=== PATIENT | female | born 1940 | race Caucasian/White ===

== ENCOUNTER → 2016-10-07 | Outpatient (CLI) | payer OTHER ==
[~2016-10-07] MED LIST: ASPI325T45 PO; FRS/40 PO; GABA-113 PO; GLC5 PO; MELO15TA4 PO; PENT400T PO; SIMV-151 PO; SYMIN160 INH; VENL-273 PO
--- NOTE | 2016-10-07 13:57 | DIAGNOSTIC IMAGING REPORT ---
ULTRASOUND LEFT LOWER EXTREMITY VENOUS CLINICAL HISTORY: Left leg pain and swelling. COMPARISON STUDY: No priors. TECHNIQUE: Real-time, grayscale, and color Doppler sonography of the deep veins of the left lower extremity was performed from the inguinal crease to the calf. Compression and augmentation were utilized. FINDINGS: There is no sonographic evidence of deep venous thrombosis identified in the left lower extremity. The common femoral, superficial femoral, and popliteal veins are patent and normally compressible. The greater saphenous vein and the profunda femoris vein at the junction with the common femoral vein are clear. The visualized calf veins are patent. IMPRESSION: There is no sonographic evidence of deep venous thrombosis identified in the left lower extremity. Electronically signed by: Dmitry Cherry M.D. 10/07/2016 1:55 PM Dictated Date/Time: 10/07/2016 1:55 PM
== END | disposition home or self-care (01) ==
LOC: C.ULTR 12:42
PROVIDERS: ATTEND Internal Medicine
DX: M79.605 Pain in left leg (principal); M79.89 Other specified soft tissue disorders

== ENCOUNTER → 2017-02-06 | Outpatient (CLI) | payer OTHER ==
--- NOTE | 2017-02-07 12:30 | MAMMOGRAPHY REPORT ---
BILATERAL DIGITAL SCREENING MAMMOGRAM WITH CAD: 02/06/2017 CLINICAL HISTORY: Routine screening. TECHNIQUE: Current study was also evaluated with a Computer Aided Detection (CAD) system. Bilateral CC and MLO views were obtained. COMPARISON: Comparison is made to exams dated: 02/05/2016 mammogram, 01/27/2014 mammogram, 03/04/2012 m ammogram, 10/24/2010 mammogram, 10/23/2009 mammogram - [facility], and 12/02/2008. BREAST COMPOSITION: There are scattered areas of fibroglandular density in both breasts. FINDINGS: No suspicious masses, calcifications, or areas of architectural distortion are noted in ei ther breast. There has been no significant interval change compared to prior exams. Scattered bilater al benign-appearing calcifications are not significantly changed. IMPRESSION: ACR BI-RADS CATEGORY 2: BENIGN There is no mammographic evidence of malignancy. A 1 year screening mammogram is recommended. The pa tient will receive written notification of the results. Approximately 10% of breast cancers are not detected with mammography. A negative mammographic report should not delay biopsy if a clinically suggestive mass is present. Latonia Pritchard M.D. ah/:02/06/2017 14:56:36 Attending Technologist: Viki Jasso RT(R)(M)(), [facility] Crusher Setter: Beulah Padron RT(R)(M), [facility] letter sent: Normal 1/2 BI-RADS Code: ACR BI-RADS Category 2: Benign
== END | disposition home or self-care (01) ==
LOC: C.MAMM 13:26
PROVIDERS: ATTEND Internal Medicine
DX: Z12.31 Encounter for screening mammogram for malignant neoplasm of breast (principal)

== ENCOUNTER → 2017-05-05 | Outpatient (CLI) | payer OTHER ==
[2017-05-05 15:38] LABS: ALT/SGPT 16 U/L (12-78); BLOOD UREA NITROGEN 18 mg/dl (7-18); BUN/CREATININE RATIO 20.7 (10-20); CALCIUM 9.9 mg/dl (8.5-10.1); CARBON DIOXIDE 27 mmol/L (21-32); CHLORIDE 107 mmol/L (98-107); CHOLESTEROL 178 mg/dl (0-200); CREATININE 0.87 mg/dl (0.60-1.20); GLUCOSE 84 mg/dl (70-99); POTASSIUM 4.7 mmol/L (3.5-5.1); SODIUM 141 mmol/L (136-145)
[2017-05-05 15:41] LABS: ALB/GLOB RATIO 1.2 (0.9-2); ALKALINE PHOSPHATASE 114 U/L (45-117); AST/SGOT 18 U/L (15-37); CHOLESTEROL/HDL RATIO 4.3; HDL CHOLESTEROL 41 mg/dl; TRIGLYCERIDES 185 mg/dl (0-150); VERY LOW DENSITY LIPOPROT CALC 37 mg/dl
[2017-05-05 16:51] LABS: BASO % 0.2 %; BASO ABS # 0.02 K/uL (0-0.2); COMPLETE YES; EOS % 2.6 %; IG% 0.3 %; LYMPH % 25.2 %; LYMPH ABS # 2.45 K/uL (1.2-3.4); MEAN CELL VOLUME 98.1 fL (80-100); MEAN CORPUSCULAR HEMOGLOBIN 32.9 pg (25-34); MEAN CORPUSCULAR HGB CONC 33.5 g/dl (32-36); MEAN PLATELET VOLUME 11.2 fL (7.4-10.4); MONO % 7.6 %; NEUT % 64.1 %; PLATELET COUNT 250 K/uL (130-400); WHITE BLOOD COUNT 9.71 K/uL (4.8-10.8)
[2017-05-06 07:20] LABS: ESTIMATED AVERAGE GLUCOSE 128 mg/dl; HA1C FLAG Normal (Normal)
== END | disposition home or self-care (01) ==
LOC: C.LABSPEC 14:55
PROVIDERS: ATTEND Internal Medicine
DX: E11.9 Type 2 diabetes mellitus without complications (principal); E78.5 Hyperlipidemia, unspecified; J44.9 Chronic obstructive pulmonary disease, unspecified

== ENCOUNTER 2020-11-13 14:27 | Inpatient (IN) ==
[2020-11-13] MEDS ORDERED: SODIUM CHLORIDE 0.9% 500 ML IV ONE (16:51)
[2020-11-13] MEDS ORDERED: VANCOMYCIN HCL 2,000 MG in SODIUM CHLORIDE 0.9% 500 ML IV ONE (16:52)
[2020-11-13] MEDS ORDERED: VANCOMYCIN CONSULT ACTIVE PRN ×2 (16:52→22:06)
[2020-11-13] MEDS ORDERED: PIPERACILL/TAZOBAC CONSULT ACTIVE PRN ×2 (16:52→22:06)
[2020-11-13] MEDS ORDERED: PIPERACILLIN/TAZOBACTAM 4.5 GM/120 ML BAG IV ONE (16:52)
[2020-11-13] MEDS ORDERED: ACETAMINOPHEN 1,000 MG/100 ML VIAL IV STA (16:54)
[2020-11-13] MEDS ORDERED: MoRPHine SULFATE 2 MG/ML CARP IV STA ×2 (16:54→19:00)
--- NOTE | 2020-11-13 17:34 | XRay Report ---
XR knee RT 1 or 2V routine CLINICAL HISTORY: anterior knee ulcer, cellulitis COMPARISON: CT of the right lower extremity August 17, 2013. FINDINGS: Incidental note is made of vascular stents within the right leg at the level of the distal right femur. Postoperative findings from right below-knee amputation are noted. There is no evidence for osteomyelitis. There is no soft tissue gas. Patellofemoral compartment osteoarthritis is present . No acute fracture is identified. IMPRESSION: Status post right below knee amputation. No evidence for osteomyelitis. No acute fracture . ACT 112: Negative or not required by law. Electronically signed by: Parish Vinson M.D. 11/13/2020 5:33 PM
--- NOTE | 2020-11-13 17:35 | XRay Report ---
XR chest 1V portable CLINICAL HISTORY: SEPSIS COMPARISON STUDY: Chest radiograph March 29, 2015. FINDINGS: Elevation of the right hemidiaphragm is unchanged. There are cholecystectomy clips. No pneu mothorax or pleural effusion is present. There is no consolidation or evidence for pulmonary edema. C ardiac size is normal. Mediastinal contours are unremarkable. IMPRESSION: No acute cardiopulmonary findings. No change in appearance of the chest. ACT 112: Negative or not required by law. Electronically signed by: Parish Vinson M.D. 11/13/2020 5:34 PM
--- NOTE | 2020-11-13 17:37 | XRay Report ---
XR tibia fibula LT 2V CLINICAL HISTORY: Cellulitis COMPARISON: None FINDINGS: Alignment of the left knee is anatomic. There is patellofemoral compartment joint space na rrowing with osteophytosis. There is no evidence for left knee joint effusion. There is no acute frac ture or evidence for osteomyelitis within the left tibia or fibula. A cutaneous edema. IMPRESSION: No acute fracture or evidence for osteomyelitis within the left tibia or fibula. ACT 112: Negative or not required by law. Electronically signed by: Parish Vinson M.D. 11/13/2020 5:35 PM
--- NOTE | 2020-11-13 17:38 | XRay Report ---
XR foot LT 2V CLINICAL HISTORY: Cellulitis COMPARISON: None FINDINGS: Tarsometatarsal joints are intact. No acute fracture within the left foot is noted. Pl[place] r calcaneal spurring is noted. There is no evidence for osteomyelitis. There is moderate osteoarthrit is of the left first metatarsophalangeal joint. IMPRESSION: No acute fracture or evidence for osteomyelitis within the left foot. ACT 112: Negative or not required by law. Electronically signed by: Parish Vinson M.D. 11/13/2020 5:36 PM
[2020-11-13 17:42] LABS: Basophils # (auto) 0.02 K/uL (0-0.2); Basophils % (auto) 0.2 %; Eosinophils # (auto) 0.21 K/uL (0-0.5); Eosinophils % (auto) 2.2 %; Hematocrit (blood only) 41.8 % (37-47); Immature Granulocytes # (auto) 0.03 K/uL (0.00-0.02); Immature Granulocytes % (auto) 0.3 %; Lymphocytes # (auto) 1.94 K/uL (1.2-3.4); Lymphocytes % (auto) 20.4 %; Mean Corpuscular Hemoglobin 30.8 pg (25-34); Mean Corpuscular Hgb Conc 33.5 g/dL (32-36); Mean Corpuscular Volume 91.9 fL (80-100); Mean Platelet Volume 10.6 fL (7.4-10.4); Monocytes # (auto) 0.83 K/uL (0.11-0.59); Monocytes % (auto) 8.7 %; Neutrophils % (auto) 68.2 %; Platelet Count 337 K/uL (130-400); RDW Coefficient of Variation 13.3 % (11.5-14.5); RDW Standard Deviation 44.6 fL (36.4-46.3); Red Blood Count 4.55 M/uL (4.2-5.4); White Blood Count 9.53 K/uL (4.8-10.8)
[2020-11-13 17:52] LABS: Partial Thromboplastin Time 25.4 Seconds (21.0-31.0); Prothrombin Time 9.9 Seconds (9.0-12.0)
[2020-11-13 18:01] LABS: Alanine Aminotransferase 11 U/L (12-78); Albumin Level 3.2 gm/dl (3.4-5.0); Aspartate Aminotransferase 13 U/L (15-37); Bilirubin Direct < 0.1 mg/dl (0-0.2); Blood Urea Nitrogen 41 mg/dl (7-18); Calcium 9.2 mg/dl (8.5-10.1); Carbon Dioxide 26 mmol/L (21-32); Chloride 103 mmol/L (98-107); Est GFR (African American) 33.1; Est GFR (Non-African American) 28.6; Glucose 87 mg/dl (70-99); Magnesium 2.4 mg/dl (1.8-2.4); Potassium 3.2 mmol/L (3.5-5.1); Sodium 136 mmol/L (136-145)
[2020-11-13 18:04] LABS: Albumin Globulin Ratio 0.9 (0.9-2); Alkaline Phosphatase 125 U/L (45-117); Bilirubin,Total 0.4 mg/dl (0.2-1); Creatine Kinase 63 U/L (26-192); Globulin 3.5 gm/dl (2.5-4.0); Total Protein 6.7 gm/dl (6.4-8.2); Troponin I < 0.015 ng/ml (0-0.045)
--- NOTE | 2020-11-13 18:34 | Emergency Department Note ---
Impression & Plan Cellulitis of both lower extremities, PAD (peripheral artery disease), Hypokalemia, Renal insufficiency ED Provider Note NAME: GARRETT PRIETO AGE: 80 SEX: F ARRIVES VIA: Walk-In INFORMANT: Patient, ED PROVIDER(S): Bryan Fuentes MD CHIEF COMPLAINT: Left leg infection. PLAN: Disposition: Admit MEDICAL DECISION MAKING: The patient is a pleasant 80-year-old woman with a past medical history of COPD, diabetes, PAD, history of right BKA who presents to the emergency department after being referred by her PCP for worsening left lower extremity cellulitis which had been managed for nonhealing ulcer by wound care but now worsening. The patient denies any fevers, chills, cough, congestion, GI or symptoms. She does report pain in her left leg that has been managed with tramadol. The patient and her family member at the bedside are unsure if she had been treated with antibiotics for this. However they report having wound care twice a week for the past month and today the wound care nurse was concerned and referred them to her primary care doctor. On arrival the patient is fatigued but no acute distress, afebrile with stable vital signs. She has erythema, warmth and tenderness of the left lower leg and foot with serous weeping and diffuse excoriation. There is superficial ulceration of the plantar surface of the great toe and mid posterior lower leg. There is no crepitus. Equivocal pedal pulse however foot is warm with Capillary refill <2s. Right anterior upper leg with papular erythematous rash with mild w armth and tenderness. 0.5cm superficial ulcer of right anterior knee. EKG without overt acute ischemia. CXR negative for acute cardiopulmonary process. WBC, H/H and platelets within normal limits. Chemistry without metabolic acidosis. Creatinine 1.6 increased from previous. Potassium 3.2 with repletion provided. Electrolytes otherwise unremarkable. LFTs without significant abnormality. Troponin negative/undetectable. Lactic acid wnl. Procalcitonin is note elevated. Plain films of the left lower extremity and right knee negative for osseous involvement or fractures. Treatment initiated with Vancomycin and Zosyn. Given the patient's comorbidities in the setting of worsening left lower extremity cellulitis reasonable admit the patient for further management. The patient is agreeable. Case was discussed with [place] admitting resident, Dr. Cartwright, with Dr. Fu, [facility] hospitalist, who will evaluate the patient for admission. Triage Nursing notes reviewed and agree them. Prior medical records reviewed Vital Signs: reviewed and remarkable for no significant abnormalities Differential diagnosis: Cellulitis, abscess, MRSA infection, DVT, necrotizing fasciitis, dermatitis, drug eruption, allergic reaction, as well as other pathologies. ER treatment provided: See below. Diagnostics interpreted by me: ECG: NSR, 62 bpm, no ectopy, RBBB and LAFB no overt ST elevation or depression. Cardiac Monitoring: An order for continuous cardiac monitoring was placed and demonstrated NSR, 62 bpm, no ectopy. Laboratory studies: See below Imaging studies: See below Consultation(s): [place] admitting resident, Dr. Cartwright, [facility], who will evaluate the patient for admission. HPI: The patient is a pleasant 80-year-old woman with a past medical history of COPD, diabetes, PAD, history of right BKA who presents to the emergency department after being referred by her PCP for worsening left lower extremity cellulitis which had been managed for nonhealing ulcer by wound care but now worsening. The patient denies any fevers, chills, cough, congestion, GI or symptoms. She does report pain in her left leg that has been managed with tramadol. The patient and her family member at the bedside are unsure if she had been treated with antibiotics for this. However they report having wound care twice a week for the past month and today the wound care nurse was concerned and referred them to her primary care doctor. ROS: See above HPI for pertinent positives & negatives. A total of 10 systems reviewed and were otherwise negative. PAST MEDICAL HISTORY:See Below PAST SURGICAL HISTORY:See Below FAMILY HISTORY:See Below SOCIAL HISTORY:See Below HOME MEDICATIONS:See Below ALLERGIES:See Below VITALS:See Below PHYSICAL EXAMINATION: GENERAL: Awake, alert, fatigued-appearing, in no distress HENT: Normocephalic, atraumatic. Oropharynx with dry mucous membranes and otherwise unremarkable. EYES: Normal conjunctiva. Sclera non-icteric. NECK: Supple. No nuchal rigidity. FROM. No JVD. RESPIRATORY: Clear to auscultation. CARDIAC: Regular rate, normal rhythm. Extremities warm and well perfused. Pulses equal. ABDOMEN: Soft, non-distended. No tenderness to palpation. No rebound or guarding. No masses. RECTAL: Deferred. MUSCULOSKELETAL: Chest examination reveals no tenderness. The back is symmetrical on inspection without obvious abnormality. There is no CVA tenderness to palpation. No joint edema. LOWER EXTREMITIES: erythema, warmth and tenderness of the left lower leg and foot with serous weeping and diffuse excoriation. There is superficial ulceration of the plantar surface of the great toe and mid posterior lower leg. There is no crepitus. Equivocal pedal pulse however foot is warm with Capillary refill <2s. Right anterior upper leg with papular erythematous rash with mild warmth and tenderness. 0.5cm superficial ulcer of right anterior knee. NEURO: Normal sensorium. No sensory or motor deficits noted. SKIN: No jaundice noted. Warm/dry. Bryan Fuentes MD Past Med/Surg History Medical History Carotid stenosis, asymptomatic Hx of right BKA PAD (peripheral artery disease) Social History Smoking Status: Heavy tobacco smoker Tobacco Type: Cigarettes Second Hand Exposure: No; Do You Dip or Chew Tobacco: No; Tobacco Cessation Education Requested by Patient: No Hx Alcohol Use: No Hx Substance Use: No Preferred Language: Russian Communication Ability: Effective Artist'S Representative Required: No Beliefs That Will Affect Care: None Current Living Situation: Alone Other Information That Helps Us Care for You: No Feels Safe at Home: Yes Assistive Devices: Denture - Upper, Glasses and Wheelchair Allergies Allergies Allergy/AdvReac Type Severity Reaction Status Date / Time hydrogen peroxide Allergy Unknown ALLERGY Verified 11/13/20 18:57 REPORTED "PEROXIDE"-red and itchy Home Meds Home Medications Medication Instructions Recorded Confirmed aspirin 325 mg PO DAILY 11/13/20 11/13/20 fluticasone propion-salmeterol 2 inh INHALATION DAILY 11/13/20 11/13/20 [Advair Diskus] furosemide 40 mg PO BID 11/13/20 11/13/20 gabapentin 0 mg PO DIRECTED 11/13/20 11/13/20 gabapentin 0 mg PO UD 11/13/20 11/13/20 glipizide 5 mg PO DAILY 11/13/20 11/13/20 meloxicam 15 mg PO DAILY 11/13/20 11/13/20 oxybutynin chloride 5 mg PO BID 11/13/20 11/13/20 pentoxifylline 400 mg PO TID 11/13/20 11/13/20 simvastatin 20 mg PO DAILY 11/13/20 11/13/20 venlafaxine 75 mg PO DAILY 11/13/20 11/13/20 Results & Data (ED) Vital Signs Vital Signs - 24 hr 11/13/20 14:33 11/13/20 16:57 11/13/20 17:08 Temperature 37.0 C Temperature Source Skin Pulse Rate 74 65 61 Pulse Rate [Left] 63 Pulse Rate from SpO2 Sensor Respiratory Rate 20 18 17 Respiratory Effort / Characteristics Non-Labored Spontaneous Non-Labored Spontaneous Respiratory Depth Normal Respiratory Pattern Regular Blood Pressure 115/54 L Blood Pressure [Right Arm] 136/50 L Blood Pressure Mean 74 Blood Pressure Mean [Right Arm] 78 Blood Pressure Position [Right Arm] Pulse Oximetry 92 94 Oxygen Delivery Method Room Air Room Air Sepsis Recent Fever Within 48 Hours No Sepsis New/Unexplained Change in Mental Status N/A Sepsis Action Taken by Nursing No Action Required 11/13/20 17:10 11/13/20 17:17 11/13/20 17:20 Temperature Temperature Source Pulse Rate 59 L 62 68 Pulse Rate [Left] Pulse Rate from SpO2 Sensor 63 65 Respiratory Rate 20 29 H 29 H Respiratory Effort / Characteristics Respiratory Depth Respiratory Pattern Blood Pressure 136/50 L Blood Pressure [Right Arm] Blood Pressure Mean 78 Blood Pressure Mean [Right Arm] Blood Pressure Position [Right Arm] Pulse Oximetry 80 L 93 91 Oxygen Delivery Method Sepsis Recent Fever Within 48 Hours Sepsis New/Unexplained Change in Mental Status Sepsis Action Taken by Nursing 11/13/20 17:30 11/13/20 17:40 11/13/20 17:50 Temperature Temperature Source Pulse Rate 62 59 L 62 Pulse Rate [Left] Pulse Rate from SpO2 Sensor 63 59 L 59 L Respiratory Rate 21 24 17 Respiratory Effort / Characteristics Respiratory Depth Respiratory Pattern Blood Pressure Blood Pressure [Right Arm] Blood Pressure Mean Blood Pressure Mean [Right Arm] Blood Pressure Position [Right Arm] Pulse Oximetry 94 95 90 Oxygen Delivery Method Sepsis Recent Fever Within 48 Hours Sepsis New/Unexplained Change in Mental Status Sepsis Action Taken by Nursing 11/13/20 18:00 11/13/20 18:03 11/13/20 18:43 Temperature Temperature Source Pulse Rate 58 L 71 Pulse Rate [Left] 57 L Pulse Rate from SpO2 Sensor 57 L 58 L Respiratory Rate 13 16 20 Respiratory Effort / Characteristics Non-Labored Spontaneous Respiratory Depth Normal Respiratory Pattern Blood Pressure 157/73 H Blood Pressure [Right Arm] 107/61 Blood Pressure Mean 101 Blood Pressure Mean [Right Arm] 76 Blood Pressure Position [Right Arm] Lying Pulse Oximetry 96 92 94 Oxygen Delivery Method Room Air Room Air Sepsis Recent Fever Within 48 Hours Sepsis New/Unexplained Change in Mental Status Sepsis Action Taken by Nursing Laboratory Data Attestation: I reviewed the patient's lab results. Result diagrams: 11/13/20 17:15 11/13/20 17:15 Lab Results 11/13/20 11/13/20 11/13/20 Range/Units 17:00 17:00 17:15 WBC 9.53 (4.8-10.8) K/uL RBC 4.55 (4.2-5.4) M/uL Hgb 14.0 (12.0-16.0) g/dL Hct 41.8 (37-47) % MCV 91.9 (80-100) fL MCH 30.8 (25-34) pg MCHC 33.5 (32-36) g/dL RDW Std Deviation 44.6 (36.4-46.3) fL RDW Coeff of Isiah 13.3 (11.5-14.5) % Plt Count 337 (130-400) K/uL MPV 10.6 H (7.4-10.4) fL Immature Gran % (Auto) 0.3 % Neut % (Auto) 68.2 % Lymph % (Auto) 20.4 % [place] % (Auto) 8.7 % Eos % (Auto) 2.2 % Baso % (Auto) 0.2 % Neut # (Auto) 6.50 (1.4-6.5) K/uL Lymph # (Auto) 1.94 (1.2-3.4) K/uL [place] # (Auto) 0.83 H (0.11-0.59) K/uL Eos # (Auto) 0.21 (0-0.5) K/uL Baso # (Auto) 0.02 (0-0.2) K/uL Immature Gran # (Auto) 0.03 H (0.00-0.02) K/uL PT (9.0-12.0) Seconds INR (0.9-1.1) APTT (21.0-31.0) Seconds PTT Ratio Sodium (136-145) mmol/L Potassium (3.5-5.1) mmol/L Chloride (98-107) mmol/L Carbon Dioxide (21-32) mmol/L Anion Gap (3-11) BUN (7-18) mg/dl Creatinine (0.6-1.2) mg/dl Est Cr Clr Drug Dosing ml/min Est GFR ( Amer) Est GFR (Non-Af Amer) BUN/Creatinine Ratio (10-20) Glucose (70-99) mg/dl Lactate (0.4-2.0) mmol/L Calcium (8.5-10.1) mg/dl Phosphorus (2.5-4.9) mg/dl Magnesium (1.8-2.4) mg/dl Total Bilirubin (0.2-1) mg/dl Direct Bilirubin (0-0.2) mg/dl AST (15-37) U/L ALT (12-78) U/L Alkaline Phosphatase (45-117) U/L Total Creatine Kinase (26-192) U/L Troponin I (0-0.045) ng/ml Total Protein (6.4-8.2) gm/dl Albumin (3.4-5.0) gm/dl Globulin (2.5-4.0) gm/dl Albumin/Globulin Ratio (0.9-2) Procalcitonin (0-0.5) ng/ml COVID-19 Eval Order [facility]Rsv at [facility] SARS-CoV-2 (PCR) NEGATIVE (Negative) Influenza Type A (PCR) Negative (Neg) Influenza Type B (PCR) Negative (Neg) RSV (RT-PCR) Negative (Neg) 11/13/20 11/13/20 11/13/20 Range/Units 17:15 17:15 17:15 WBC (4.8-10.8) K/uL RBC (4.2-5.4) M/uL Hgb (12.0-16.0) g/dL Hct (37-47) % MCV (80-100) fL MCH (25-34) pg MCHC (32-36) g/dL RDW Std Deviation (36.4-46.3) fL RDW Coeff of Isiah (11.5-14.5) % Plt Count (130-400) K/uL MPV (7.4-10.4) fL Immature Gran % (Auto) % Neut % (Auto) % Lymph % (Auto) % [place] % (Auto) % Eos % (Auto) % Baso % (Auto) % Neut # (Auto) (1.4-6.5) K/uL Lymph # (Auto) (1.2-3.4) K/uL [place] # (Auto) (0.11-0.59) K/uL Eos # (Auto) (0-0.5) K/uL Baso # (Auto) (0-0.2) K/uL Immature Gran # (Auto) (0.00-0.02) K/uL PT 9.9 (9.0-12.0) Seconds INR 1.0 (0.9-1.1) APTT 25.4 (21.0-31.0) Seconds PTT Ratio 1.0 Sodium 136 (136-145) mmol/L Potassium 3.2 L (3.5-5.1) mmol/L Chloride 103 (98-107) mmol/L Carbon Dioxide 26 (21-32) mmol/L Anion Gap 6.0 (3-11) BUN 41 H (7-18) mg/dl Creatinine 1.69 H (0.6-1.2) mg/dl Est Cr Clr Drug Dosing 26.0 ml/min Est GFR ( Amer) 33.1 Est GFR (Non-Af Amer) 28.6 BUN/Creatinine Ratio 24.0 H (10-20) Glucose 87 (70-99) mg/dl Lactate (0.4-2.0) mmol/L Calcium 9.2 (8.5-10.1) mg/dl Phosphorus 3.0 (2.5-4.9) mg/dl Magnesium 2.4 (1.8-2.4) mg/dl Total Bilirubin 0.4 (0.2-1) mg/dl Direct Bilirubin < 0.1 (0-0.2) mg/dl AST 13 L (15-37) U/L ALT 11 L (12-78) U/L Alkaline Phosphatase 125 H (45-117) U/L Total Creatine Kinase 63 (26-192) U/L Troponin I < 0.015 (0-0.045) ng/ml Total Protein 6.7 (6.4-8.2) gm/dl Albumin 3.2 L (3.4-5.0) gm/dl Globulin 3.5 (2.5-4.0) gm/dl Albumin/Globulin Ratio 0.9 (0.9-2) Procalcitonin 0.05 (0-0.5) ng/ml COVID-19 Eval Order SARS-CoV-2 (PCR) (Negative) Influenza Type A (PCR) (Neg) Influenza Type B (PCR) (Neg) RSV (RT-PCR) (Neg) 11/13/20 Range/Units 18:23 WBC (4.8-10.8) K/uL RBC (4.2-5.4) M/uL Hgb (12.0-16.0) g/dL Hct (37-47) % MCV (80-100) fL MCH (25-34) pg MCHC (32-36) g/dL RDW Std Deviation (36.4-46.3) fL RDW Coeff of Isiah (11.5-14.5) % Plt Count (130-400) K/uL MPV (7.4-10.4) fL Immature Gran % (Auto) % Neut % (Auto) % Lymph % (Auto) % [place] % (Auto) % Eos % (Auto) % Baso % (Auto) % Neut # (Auto) (1.4-6.5) K/uL Lymph # (Auto) (1.2-3.4) K/uL [place] # (Auto) (0.11-0.59) K/uL Eos # (Auto) (0-0.5) K/uL Baso # (Auto) (0-0.2) K/uL Immature Gran # (Auto) (0.00-0.02) K/uL PT (9.0-12.0) Seconds INR (0.9-1.1) APTT (21.0-31.0) Seconds PTT Ratio Sodium (136-145) mmol/L Potassium (3.5-5.1) mmol/L Chloride (98-107) mmol/L Carbon Dioxide (21-32) mmol/L Anion Gap (3-11) BUN (7-18) mg/dl Creatinine (0.6-1.2) mg/dl Est Cr Clr Drug Dosing ml/min Est GFR ( Amer) Est GFR (Non-Af Amer) BUN/Creatinine Ratio (10-20) Glucose (70-99) mg/dl Lactate 0.9 (0.4-2.0) mmol/L Calcium (8.5-10.1) mg/dl Phosphorus (2.5-4.9) mg/dl Magnesium (1.8-2.4) mg/dl Total Bilirubin (0.2-1) mg/dl Direct Bilirubin (0-0.2) mg/dl AST (15-37) U/L ALT (12-78) U/L Alkaline Phosphatase (45-117) U/L Total Creatine Kinase (26-192) U/L Troponin I (0-0.045) ng/ml Total Protein (6.4-8.2) gm/dl Albumin (3.4-5.0) gm/dl Globulin (2.5-4.0) gm/dl Albumin/Globulin Ratio (0.9-2) Procalcitonin (0-0.5) ng/ml COVID-19 Eval Order SARS-CoV-2 (PCR) (Negative) Influenza Type A (PCR) (Neg) Influenza Type B (PCR) (Neg) RSV (RT-PCR) (Neg) Administered Medications Heparin Sodium (Porcine) (Heparin Sod 5,000 Unit/0.5 Ml Vial) 5,000 units SQ Q12 [facility] Stop: 12/13/20 22:05 Last Admin: 11/13/20 23:11 Dose: 5,000 units Documented by: [id number] Piperacillin Sod/Tazobactam (Sod 3.375 gm/ Dextrose) 115 mls @ 28.75 mls/hr IV Q8H [facility]; Protocol Stop: 11/21/20 00:00 Last Admin: 11/13/20 23:19 Dose: 28.8 mls/hr Documented by: [id number] Lactated Ringer's (Lr) 1,000 mls @ 100 mls/hr IV .Q10H [facility] Stop: 11/14/20 18:05 Last Admin: 11/13/20 22:51 Dose: 100 mls/hr Documented by: [id number] Insulin Aspart (Insulin Aspart 100 Units/Ml 3 Ml Pen) 0 units SC ACHS [facility] Stop: 12/13/20 22:05 Last Admin: 11/13/20 23:18 Dose: Not Given Documented by: [id number] Oxybutynin Chloride (Oxybutynin Chloride 5 Mg Tab) 5 mg PO BID [facility] Stop: 12/13/20 22:05 Last Admin: 11/13/20 23:11 Dose: 5 mg Documented by: [id number] Oxycodone HCl (Oxycodone Hcl Ir 5 Mg Tab (Immediate Release)) 5 mg PO Q4H PRN PRN Reason: MODERATE Pain (4,5,6) & Pre PT Stop: 11/27/20 22:05 Last Admin: 11/13/20 22:52 Dose: 5 mg Documented by: [id number] Pentoxifylline (Pentoxifylline 400mg Ext Rel Tab) 400 mg PO TID [facility] Stop: 12/13/20 22:05 Last Admin: 11/13/20 23:13 Dose: 400 mg Documented by: [id number] Discontinued Medications Sodium Chloride (Nss) 500 mls @ 999 mls/hr IV .Q31M ONE Stop: 11/13/20 17:21 Last Infusion: 11/13/20 18:03 Dose: 0 mls/hr Documented by: [id number] Admin: 11/13/20 17:30 Dose: 999 mls/hr Documented by: [id number] Vancomycin HCl 2,000 mg/ (Sodium Chloride) 540 mls @ 200 mls/hr IV NOW ONE Stop: 11/13/20 19:33 Last Infusion: 11/13/20 22:08 Dose: 0 mls/hr Documented by: [id number] Admin: 11/13/20 18:38 Dose: 200 mls/hr Documented by: [id number] Piperacillin Sod/Tazobactam Sod (Zosyn) 4.5 gm in 120 mls @ 240 mls/hr IV NOW ONE Stop: 11/13/20 17:21 Last Infusion: 11/13/20 22:08 Dose: 0 mls/hr Documented by: [id number] Admin: 11/13/20 18:38 Dose: 240 mls/hr Documented by: [id number] Acetaminophen (Ofirmev) 1,000 mg in 100 mls @ 400 mls/hr IV NOW STA Stop: 11/13/20 17:08 Last Infusion: 11/13/20 17:57 Dose: 0 mls/hr Documented by: [id number] Admin: 11/13/20 17:30 Dose: 400 mls/hr Documented by: [id number] Potassium Chloride (K Eder / Wtr) 10 meq in 100 mls @ 100 mls/hr IV Q1H [facility] Stop: 11/13/20 20:29 Last Infusion: 11/14/20 01:17 Dose: 0 mls/hr Documented by: [id number] Admin: 11/14/20 00:13 Dose: 100 mls/hr Documented by: [id number] Infusion: 11/14/20 00:10 Dose: 100 mls/hr Documented by: [id number] Admin: 11/13/20 23:10 Dose: 100 mls/hr Documented by: [id number] Morphine Sulfate (Morphine Sulfate 2 Mg/Ml Carp) 1 mg IV NOW STA Stop: 11/13/20 16:55 Last Admin: 11/13/20 17:30 Dose: 1 mg Documented by: [id number] Morphine Sulfate (Morphine Sulfate 2 Mg/Ml Carp) 2 mg IV NOW STA Stop: 11/13/20 19:01 Last Admin: 11/13/20 21:31 Dose: Not Given Documented by: [id number] Morphine Sulfate (Morphine Sulfate 2 Mg/Ml Carp) Confirm Administered Dose 2 mg .ROUTE .STK-MED ONE Stop: 11/13/20 21:21 Last Admin: 11/13/20 21:31 Dose: Not Given Documented by: [id number] Potassium Chloride (Potassium Chloride Crtab 20 Meq Tabcr) 40 meq PO NOW STA Stop: 11/13/20 22:07 Last Admin: 11/13/20 23:12 Dose: 40 meq Documented by: [id number] Imaging Data Radiologist's Impression: Chest X-Ray 11/13/20 16:48 XR chest 1V portable CLINICAL HISTORY: SEPSIS COMPARISON STUDY: Chest radiograph March 29, 2015. FINDINGS: Elevation of the right hemidiaphragm is unchanged. There are cholecystectomy clips. No pneumothorax or pleural effusion is present. There is no consolidation or evidence for pulmonary edema. Cardiac size is normal. Mediastinal contours are unremarkable. IMPRESSION: No acute cardiopulmonary findings. No change in appearance of the chest. ACT 112: Negative or not required by law. Electronically signed by: Parish Vinson M.D. 11/13/2020 5:34 PM Foot X-Ray 11/13/20 16:49 XR foot LT 2V CLINICAL HISTORY: Cellulitis COMPARISON: None FINDINGS: Tarsometatarsal joints are intact. No acute fracture within the left foot is noted. Pl[place]r calcaneal spurring is noted. There is no evidence for osteomyelitis. 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 IMPRESSION: No acute fracture or evidence for osteomyelitis within the left foot. ACT 112: Negative or not required by law. Electronically signed by: Parish Vinson M.D. 11/13/2020 5:36 PM Knee X-Ray 11/13/20 16:49 XR knee RT 1 or 2V routine CLINICAL HISTORY: anterior knee ulcer, cellulitis COMPARISON: CT of the right lower extremity August 17, 2013. FINDINGS: Incidental note is made of vascular stents within the right leg at the level of the distal right femur. Postoperative findings from right below- knee amputation are noted. There is no evidence for osteomyelitis. There is no soft tissue gas. Patellofemoral compartment osteoarthritis is present. No acute fracture is identified. IMPRESSION: Status post right below knee amputation. No evidence for osteomyelitis. No acute fracture. ACT 112: Negative or not required by law. Electronically signed by: Parish Vinson M.D. 11/13/2020 5:33 PM Tibia/Fibula X-Ray 11/13/20 16:49 XR tibia fibula LT 2V CLINICAL HISTORY: Cellulitis COMPARISON: None FINDINGS: Alignment of the left knee is anatomic. There is patellofemoral compartment joint space narrowing with osteophytosis. There is no evidence for left knee joint effusion. There is no acute fracture or evidence for osteomyelitis within the left tibia or fibula. A cutaneous edema. IMPRESSION: No acute fracture or evidence for osteomyelitis within the left tibia or fibula. ACT 112: Negative or not required by law. Electronically signed by: Parish Vinson M.D. 11/13/2020 5:35 PM Discharge Plan Visit Data Chief Complaint: Infection Stated Complaint: INFECTION IN L FOOT ED Provider: Bryan Fuentes Discharge Problem: Cellulitis of both lower extremities, PAD (peripheral artery disease), Hypokalemia, Renal insufficiency Patient Disposition: Admitted As Inpatient Discharge Instructions Interventions: ED Discharge Assessment Last Done: 11/13/20 22:18
[2020-11-13 18:49] LABS: Influenza A virus by PCR Negative (Neg); Influenza B virus by PCR Negative (Neg); RSV by PCR Negative (Neg); SARS CoV2 RNA(COVID-19) InHosp NEGATIVE (Negative)
--- NOTE | 2020-11-13 20:47 | History & Physical Report ---
Date of Service November 13, 2020 Assessment & Plan (1) Cellulitis: Patient is a 80 year old female with PMHx COPD, DM2, PAD, R BKA, Urge Incontinence, that presents for 1 month history of nonhealing and worsening LLE wound. Of note, patient does have an upcoming COVID-19 vaccination on 11/18/20 which would be her second dose at [facility]. LLE Cellulitis -Failed outpatient wound care, no outpatient antibiotics -Started on Vancomycin and Zosyn in ED, will continue at this time -Blood cultures pending -Wound cultures ordered -Consult Wound provider and Wound nurse -Oxycodone PO and Tylenol PRN pain KM -KM with Cr. 1.64, Base 0.8~0.9 -1L NSS in the ED -Will continue gentle hydration with LR 100ml/hr x2L -Hold home lasix at this time during KM, will also request records of patients PCP for reasoning as to why she is on Lasix PAD -Continue ASA 325mg QD -Continue Pentoxifylline -Hold Gabapentin at this time, patient unsure of dosing, will place for records request at her PCP's office to determine -Hold Meloxicam at this time -Arterial duplex ordered for LLE Hypokalemia -K low at 3.2 in the ED, given 20meq KCl IV -Will supplement with 40meq KCl PO, recheck in the AM DM2 -Hold home meds -SSI for now, can add basal bolus if needed -HgbA1C in the AM COPD -Continue home Advair Diskus -Add PRN Albuterol Urge Incontinence -Continue home Oxybutynin Depression -Continue home Venlafaxine Rash R thigh, suspect atopic dermatitis -Will start with hydrocortisone cream BID -Monitor for worsening Dispo: Med/Surg for IV antibiotics, IV fluids FEN: DM2 Diet, LR 100 ml/hr x2L DVT: Heparin Code: Full, patient notes she is unsure if her living will states the same, but at this time she would want full resuscitation including CPR and Intubation (2) KM (acute kidney injury): (3) PAD (peripheral artery disease): History of Present Illness Chief Complaint: L leg wound Primary Care Provider: Og Baca MD Patient is a 80 year old female with PMHx COPD, DM2, PAD, R BKA, Urge Incontinence, that presents for 1 month history of nonhealing and worsening LLE wound. Patient notes that roughly 1 month ago she developed a small ulcer about the size of her fingertip on the back of her distal L calf and that since then it has continued to grow despite being treated every 2 days by a wound nurse. She states that her wound nurse today felt that the lesion had grown to the point that she would require antibiotic therapy and was referred to her PCP's office who subsequently urged the patient to come to the ED for evaluation and possible IV antibiotics. Patient notes that currently she is experiencing pain in the L mid calf 03/20 in addition to pain lateral to her 5th digit on the L leg as well. She states she has not taken any antibiotics for this pain. She also notes a rash on her R thigh, but is unsure of when it fully developed. She has been putting an OTC lotion on it which has improved it slightly. She otherwise denies any chest pain, chest pressure, fever, chills, SOB, abdominal pain, headache, visual changes. She notes that she has followed with Dr. Padilla in the past and that he is the one who had done her R BKA ~8 years ago. Med Hx: COPD, DM2, PAD, R BKA, Urge incontinence Surg Hx: R BKA, Cholecystectomy Social Hx: Smokes 1.5 PPD since the age of 18, no alcohol or illicit drug use. Allergies Allergy/AdvReac Type Severity Reaction Status Date / Time hydrogen peroxide Allergy Unknown ALLERGY Verified 11/13/20 18:57 REPORTED "PEROXIDE"-red and itchy lorazepam [From Ativan] AdvReac Mild flushed BP Verified 11/18/20 17:14 elevated , COMPLAINTS OF SKIN BURNING Home Medications Medication Instructions Recorded Confirmed Type aspirin 325 mg PO DAILY 11/13/20 11/13/20 History fluticasone propion-salmeterol 2 inh INHALATION DAILY 11/13/20 11/13/20 History [Advair Diskus] furosemide 40 mg PO BID 11/13/20 11/13/20 History gabapentin 0 mg PO DIRECTED 11/13/20 11/13/20 History gabapentin 0 mg PO UD 11/13/20 11/13/20 History glipizide 5 mg PO DAILY 11/13/20 11/13/20 History meloxicam 15 mg PO DAILY 11/13/20 11/13/20 History oxybutynin chloride 5 mg PO BID 11/13/20 11/13/20 History pentoxifylline 400 mg PO TID 11/13/20 11/13/20 History simvastatin 20 mg PO DAILY 11/13/20 11/13/20 History venlafaxine 75 mg PO DAILY 11/13/20 11/13/20 History Past Med/Surg History Medical History Carotid stenosis, asymptomatic Hx of right BKA PAD (peripheral artery disease) Social History Smoking Status: Heavy tobacco smoker Tobacco Type: Cigarettes Second Hand Exposure: No; Do You Dip or Chew Tobacco: No; Tobacco Cessation Education Requested by Patient: No Hx Alcohol Use: No Hx Substance Use: No Preferred Language: Zambian Communication Ability: Impaired Marble Supervisor Required: No Beliefs That Will Affect Care: None Current Living Situation: Alone Other Information That Helps Us Care for You: No Feels Safe at Home: Yes Assistive Devices: Denture - Upper, Glasses, Prosthesis and Walker Review of Systems Review of Systems: All systems reviewed & are unremarkable except as noted in Subjective Physical Exam Constitutional: + ill appearing, + disheveled and cooperative Eyes: PERRL, conjunctivae normal, anicteric sclerae ENMT: external ear and nose normal, oropharynx normal Neck: trachea midline, no thyromegaly Respiratory: normal respiratory effort Auscultation: + diminished lung so unds and + wheezes (worse in the upper lobes b/l) Cardiovascular: Rate/Rhythm: regular rate and regular rhythm Heart Sounds: no murmur and no cardiac rub Vessels: dorsalis pedis pulses present (in L foot ) Gastrointestinal (Abdomen): normal bowel sounds, soft, nontender, no hepatosplenomegaly Musculoskeletal: -L foot warm to the touch with dorsalis pedis pulse palpable -Small circular 1cm tender to palpation lesion lateral to the 5th metacarpal at the MTP on the L -L posterior calf with ulceration and clear drainage running from the mid calf to the ankle, significantly tender to palpation Psychiatric: A+Ox3, euthymic affect Results & Data Results & Data ([facility]) Vital Signs (Past 12 Hours) Vital Signs Temp Pulse Pulse Resp BP BP Pulse Ox 04/05/21 18:43 57 L 20 107/61 94 11/13/20 18:03 71 16 157/73 H 92 11/13/20 18:00 58 L 13 96 11/13/20 17:50 62 17 90 11/13/20 17:40 59 L 24 95 11/13/20 17:30 62 21 94 11/13/20 17:20 68 29 H 91 11/13/20 17:17 62 29 H 136/50 L 93 11/13/20 17:10 59 L 20 80 L 11/13/20 17:08 61 17 11/13/20 16:57 65 63 18 136/50 L 94 11/13/20 14:33 37.0 C 74 20 115/54 L 92 Code Status & VTE Plan VTE Prophylaxis Plan VTE Prophylaxis will be ordered: Yes Supervising Physician Co-Signing Physician Notes Attending addendum: I have physically seen this patient, have supervised the medical residents activities, and agree with the H&P unless as otherwise noted. Assessment and Plan: Left lower extremity cellulitis/diabetic skin infection- Empiric treatment vancomycin IV and Zosyn IV. Follow wound cultures and blood cultures and sensitivities Consult wound care Acetaminophen 650 mg p.o. every 6 hours as needed mild pain or fever Oxycodone 5 mg p.o. every 6 hours as needed moderate to severe pain KM- Creatinine 1.64 upon admission, with baseline 0.8-0.9. Status post 1 L normal saline in the ED Placed on LR at 100 mils per hour for 2 L Repeat laboratories in a.m. PAD- Continue aspirin, pentoxifylline. Arterial duplex for left lower extremity Hold gabapentin and meloxicam. Diabetes mellitus- Hold glipizide Place on Accu-Cheks before meals and at bedtime with NovoLog coverage per scale Remaining orders and notations as noted Resident Activity Tracking Resident Involvement: Resident Care Provided Care Provided: Adult Hospital Medicine
[2020-11-13] MEDS ORDERED: MoRPHine SULFATE 2 MG/ML CARP ONE (21:20)
[2020-11-13] MEDS ORDERED: GLUCAGON FOR INJ 1 MG VIAL SQ PRN (22:06)
[2020-11-13] MEDS ORDERED: CARBOHYDRATES FOR HYPOGLYCEMIA PO PRN (22:06)
[2020-11-13] MEDS ORDERED: VANCOMYCIN HCL 1,250 MG in SODIUM CHLORIDE 0.9% 500 ML IV SCH (22:06)
[2020-11-13] MEDS ORDERED: ACETAMINOPHEN 325 MG TAB PO PRN (22:06)
[2020-11-13] MEDS ORDERED: GLUCOSE 40% GEL 15 GM TUBE PO PRN (22:06)
[2020-11-13] MEDS ORDERED: HYDROCORTISONE 1% CRM 30 GM TUBE EXT PRN (22:06)
[2020-11-13] MEDS ORDERED: GLUCOSE 10 TABS/TUBE PO PRN (22:06)
[2020-11-13] MEDS ORDERED: oxyCODONE HCL IR 5 MG TAB (IMMEDIATE RELEASE) PO PRN ×2 (22:06)
[2020-11-13] MEDS ORDERED: POTASSIUM CHLORIDE CRTAB 20 MEQ TABCR PO STA (22:06)
[2020-11-13] MEDS ORDERED: DEXTROSE 50% 50 ML SYRINGE IV PRN (22:06)
[2020-11-13] MEDS ORDERED: ALBUTEROL HFA 8 GM INHALER INH PRN (22:06)
[2020-11-13] MEDS: LACTATED RINGER'S 1,000 ML IV SCH (22:51)
[2020-11-13] MEDS: POTASSIUM CHLORIDE / WTR 10 MEQ/100 ML PLCT IV SCH (23:10)
[2020-11-13] MEDS: OXYBUTYNIN CHLORIDE 5 MG TAB PO SCH (23:11)
[2020-11-13] MEDS: HEPARIN SOD 5,000 UNIT/0.5 ML VIAL SQ SCH (23:11)
[2020-11-13] MEDS: PENTOXIFYLLINE 400MG EXT REL TAB PO SCH (23:13)
[2020-11-13] MEDS: INSULIN ASPART 100 UNITS/ML 3 ML PEN SC SCH (23:18)
[2020-11-13] MEDS: PIPERACILLIN/TAZOBACTAM 3.375 GM in DEXTROSE 5% 100 ML IV SCH (23:19)
[2020-11-14] MEDS: POTASSIUM CHLORIDE / WTR 10 MEQ/100 ML PLCT IV SCH (00:13)
[2020-11-14 06:12] LABS: Basophils # (auto) 0.01 K/uL (0-0.2); Basophils % (auto) 0.1 %; Eosinophils # (auto) 0.23 K/uL (0-0.5); Eosinophils % (auto) 2.6 %; Hematocrit (blood only) 39.9 % (37-47); Hemoglobin 13.3 g/dL (12.0-16.0); Immature Granulocytes # (auto) 0.03 K/uL (0.00-0.02); Immature Granulocytes % (auto) 0.3 %; Lymphocytes % (auto) 11.1 %; Mean Corpuscular Hemoglobin 30.6 pg (25-34); Mean Corpuscular Hgb Conc 33.3 g/dL (32-36); Mean Corpuscular Volume 91.9 fL (80-100); Mean Platelet Volume 10.3 fL (7.4-10.4); Monocytes # (auto) 0.75 K/uL (0.11-0.59); Monocytes % (auto) 8.4 %; Neutrophils # (auto) 6.95 K/uL (1.4-6.5); Neutrophils % (auto) 77.5 %; Platelet Count 303 K/uL (130-400); RDW Coefficient of Variation 13.2 % (11.5-14.5); RDW Standard Deviation 44.4 fL (36.4-46.3); Red Blood Count 4.34 M/uL (4.2-5.4); White Blood Count 8.97 K/uL (4.8-10.8)
--- NOTE | 2020-11-14 06:41 | Hospitalist Progress Note ---
Date of Service November 14, 2020 Assessment & Plan (1) Cellulitis: Patient is a 80 year old female with PMHx COPD, DM2, PAD, R BKA, urge incontinence admitted for LLE pain with chronic nonhealing wounds and KM. LLE pain and ulceration/cellulitis, PAD: -Failed outpatient wound care, no outpatient antibiotics. -Started on Vancomycin and Zosyn in ED, will continue at this time. -No osteomyelitis noted on XR imaging of LLE. -Blood and wound cultures pending. -Consult to wound care nurse placed. -LLE Duplex performed which showed moderate to extensive LLE atherosclerotic plaque, without hemodynamically significant stenosis. Also noted to have possible findings of inflow disease in left common femoral artery. -Vascular Surgery consulted, appreciate recommendations. -Have transitioned aspirin to 81mg daily, with transition of simvastatin to atorvastatin 40mg daily. Continue pentoxifylline. -Scheduled Tylenol 1000mg TID. Oxycodone 5mg q4h prn moderate pain. Dilaudid 1mg q4h prn severe pain. KM: -KM with Cr. 1.64, Base 0.8~0.9. -1L NSS received in the ED, 100cc/hr x2 bags given following bolus. -Encourage PO water intake. -Hold home Lasix at this time during KM. Chronic Opiate Use: -On review of PDMP, patient has been taking Tramadol 100mg TID for LLE pain since prescribed in August. Prior to that patient was receiving about 112 tablets per month; this was for several months. Has in general been on tramadol for many years. -Patient's pain has been relatively difficult to control. -Likely some element of PAD pain and ulcer pain as described above, continue treatment of such with Vascular input. -Some element of increased pain possibly secondary to chronic opiate use, which would explain her relative need for increased dosing of opiate pain medication in the hospital setting. Hypokalemia: -K low at 3.2 in the ED, given 20meq KCl IV, 40meq PO; with increase in K to 4.3 today. DM2: -Hold home medications, SSI. -Hgb A1c 6.6% this admission. COPD: -Continue home Advair Diskus, with as needed albuterol. -No symptoms of SOB per patient, and no lung exam findings suggestive of acute lung pathology. -Was placed on oxygen while sound asleep after her DUplex today, but has not had true hypoxia or dyspnea requiring supplemental O2. Urge Incontinence: -Continue home Oxybutynin. Depression: -Continue home Venlafaxine. Rash R thigh, suspect atopic dermatitis: -Continue topical hydrocortisone cream BID. Code: FULL CODE Dispo: Med/Surg for IV antibiotics, pain control FEN: DM2 Diet, Heart healthy diet DVT: Heparin SQ BID Admission and Anticipated Discharge Date Admission Date: November 13, 2020 Supervising Physician Co-Signing Physician Notes Resident Physician Supervision Note: I independently interviewed and examined the patient and verified the ryder history and physical, reviewed labs and image studies, discussed the case with the resident Dr. Flannery and agree with the findings and care plan. Subjective Patient without acute events overnight. She reports terrible pain in LLE from below the knee to above the ankle on anterior and posterior sides. She takes tramadol 3 times daily at home, but admits to taking it "a few more times a day" for about a week due to the worsening pain. No other complaints. No numbness of lower extremity. Pain is only better when no pressure of any sort is applied to the LLE. Has a robust smoking history. No SOB, chest pain, fevers. Has had wound care at home for many weeks visiting twice weekly, but is unsure if she has been on antibiotics for her LLE. Review of Systems Review of Systems: All systems reviewed & are unremarkable except as noted in HPI & below Constitutional: + malaise; no fever and no chills Respiratory: no cough and no dyspnea Cardiovascular: no chest pain, no palpitations and no edema Gastrointestinal: no abdominal pain, no constipation and no diarrhea/loose stools Genitourinary: no dysuria and no hematuria Physical Exam Constitutional: well developed, + acute distress (due to pain) and + ill appearing Respiratory: normal respiratory effort, lungs clear to auscultation Cardiovascular: RRR, no murmur, no edema Gastrointestinal (Abdomen): normal bowel sounds, soft, nontender, no hepatosplenomegaly Skin: L posterior calf with ulceration and clear drainage running from the mid calf to the ankle, excruciatingly tender to palpation over the entirety of her LLE from below the knee to above the ankle. Some shallow ulcerations of anterior LLE. RLE notable for BKA. 1cm anterior knee shallow ulceration. Neurologic: resting tremor noted Psychiatric: A+Ox3, euthymic affect Results & Data Results & Data ([facility]) Vital Signs (Past 12 Hours) Vital Signs Temp Pulse Pulse Resp BP Pulse Ox 11/13/20 22:05 36.5 C 79 20 163/64 H 98 11/13/20 21:23 56 L 18 130/59 L 99 11/13/20 18:43 57 L 20 107/61 94 Resident Activity Tracking Resident Involvement: Resident Care Provided Care Provided: Adult Hospital Medicine
[2020-11-14 06:45] LABS: Estimated Average Glucose 143 mg/dl; Hemoglobin A1C 6.6 % (4.5-5.6)
[2020-11-14 06:48] LABS: BUN Creatinine Ratio 23.9 (10-20); Calcium 8.3 mg/dl (8.5-10.1); Creatinine Clr Calc Pharmacy 29.3 ml/min; Est GFR (African American) 38.3; Potassium 4.3 mmol/L (3.5-5.1)
[2020-11-14] MEDS ORDERED: VANCOMYCIN HCL 1,000 MG in SODIUM CHLORIDE 0.9% 250 ML IV ONE (07:45)
[2020-11-14] MEDS: PIPERACILLIN/TAZOBACTAM 3.375 GM in DEXTROSE 5% 100 ML IV SCH ×2 (08:14→15:49)
[2020-11-14] MEDS: FLUTICASONE/VILANTEROL 100/25MCG 14 PUFFS/INHALER INH SCH (08:19)
[2020-11-14] MEDS: OXYBUTYNIN CHLORIDE 5 MG TAB PO SCH ×2 (08:20→20:15)
[2020-11-14] MEDS: VENLAFAXINE HCL XR 75 MG CAPXR PO SCH (08:20)
[2020-11-14] MEDS: PENTOXIFYLLINE 400MG EXT REL TAB PO SCH ×3 (08:20→20:16)
[2020-11-14] MEDS: HEPARIN SOD 5,000 UNIT/0.5 ML VIAL SQ SCH ×2 (08:21→20:15)
[2020-11-14] MEDS ORDERED: MoRPHine SULFATE 2 MG/ML CARP IV PRN ×2 (08:34→10:39)
[2020-11-14] MEDS: ACETAMINOPHEN 500 MG TAB PO SCH ×3 (08:58→20:16)
[2020-11-14] MEDS ORDERED: SIMVASTATIN 20 MG TAB PO SCH (09:00)
[2020-11-14] MEDS ORDERED: ASPIRIN 325 MG ECTAB PO SCH (09:00)
[2020-11-14] MEDS: INSULIN ASPART 100 UNITS/ML 3 ML PEN SC SCH ×4 (10:13→20:52)
--- NOTE | 2020-11-14 10:47 | Pharmacy Report ---
Pharmacy Abx Initial Consult - Date of Service November 14, 2020 - Pharmacy Dosing Scope Date of Consult: 11/13/20 Consultation requested by: Dr. Cartwright Pharmacy is consulted to initiate vancomycin and Zosyn IV dosing therapy, order appropriate labs and adjust drug dose/frequency. - Subjective The patient is a 80 year old F admitted on 11/13/20 20:43. - Objective Height: 5 ft 2 in Weight: 75 kg Vital Signs (Past 12hrs): Vital Signs Temp Pulse Resp BP Pulse Ox 11/14/20 08:02 37.0 C 79 20 167/69 H 96 Lab Results (24hrs): Laboratory Tests (24 Hours) 11/14/20 11/14/20 11/14/20 05:50 05:50 05:50 WBC 8.97 Neut # (Auto) 6.95 H Creatinine 1.50 H Est Cr Clr Drug Dosing 29.3 Total Creatine Kinase Procalcitonin Random Vancomycin 17.5 11/13/20 11/13/20 11/13/20 17:15 17:15 17:15 WBC 9.53 Neut # (Auto) 6.50 Creatinine 1.69 H Est Cr Clr Drug Dosing 26.0 Total Creatine Kinase 63 Procalcitonin 0.05 Random Vancomycin Micro Results: 11/13/20 18:23 Aerobic Blood Culture - Pending Blood Anaerobic Blood Culture - Pending 11/13/20 17:15 Aerobic Blood Culture - Pending Blood Anaerobic Blood Culture - Pending - Assessment & Plan Assessment 80 year old F ordered empiric vancomycin and Zosyn for treatment of nonhealing LLE wound/cellulitis. Patient has had wound care twice weekly for the past month, but no known outpatient antibiotic use. Patient has history of peripheral artery disease, diabetes mellitus, and s/p right BKA. X-rays of left leg do not show any evidence of osteomyelitis. Blood cultures x 2 ordered and pending. No elevation in WBC and afebrile since admission. Apparent KM (SCr: 1.69 -> 1.5 mg/dL, 0.88 mg/dL in September of last year). Patient given loading dose last evening of 2 g (27 mg/kg) IV x 1. Random level obtained this morning and is 17.5 mcg/mL. Plan Vancomycin IV * Patient clearing vancomycin faster than current renal function suggests (anticipate further improvement in labs tomorrow) * Maintenance dose: 1000 mg IV (14 mg/kg) every 18 hours * Goal trough level for cellulitis : 10 to 20 mcg/mL * Will reassess renal function in AM and adjust dosing/order follow-up levels accordingly Piperacillin/tazobactam * 4.5 g bolus administered over 30 minutes, then 3.375 g IV extended infusion every 8 hours for CrCl greater than 20 mL/min Pharmacy will continue to follow and will adjust dose/frequency as necessary. Thank you.
[2020-11-14] MEDS ORDERED: LORazepam 0.5 MG TAB PO STA (10:48)
--- NOTE | 2020-11-14 12:35 | Electrocardiogram Report ---
Test Reason : Blood Pressure : / mmHG Vent. Rate : 062 BPM Atrial Rate : 062 BPM P-R Int : 142 ms QRS Dur : 122 ms QT Int : 456 ms P-R-T Axes : 060 -48 031 degrees QTc Int : 462 ms Poor data quality, interpretation may be adversely affected Normal sinus rhythm Right bundle branch block Left anterior fascicular block Bifascicular block Possible Lateral infarct , age undetermined Abnormal ECG When compared with ECG of 29-MAR-2015 12:12, (RBBB and left anterior fascicular block) is now Present Borderline criteria for Lateral infarct are now Present Confirmed by Milo Wheatley ([id number]) on 11/14/2020 12:35:29 PM Referred By: REFERRED SELF Confirmed By:Milo Wheatley
[2020-11-14] MEDS: HYDROmorphone INJ 1 MG/ML SYRINGE IV PRN ×2 (13:00→20:19)
[2020-11-14] MEDS: LACTATED RINGER'S 1,000 ML IV SCH (14:12)
--- NOTE | 2020-11-14 14:38 | Ultrasound Report ---
LEFT LOWER EXTREMITY ARTERIAL DOPPLER ULTRASOUND CLINICAL HISTORY: Non-healing ulcer lateral 5th met and post calf COMPARISON STUDY: Bilateral lower extremity arterial Doppler ultrasound November 05, 2012. TECHNIQUE: Grayscale, color and duplex Doppler sonography of the arterial system of the left lower ex tremity was performed. FINDINGS: Ankle-brachial indices could not be obtained in this patient. Note is made of moderate to e xtensive atherosclerotic plaque within the left lower extremity. No elevated velocities were identifi ed. Note is made of monophasic flow within the left common femoral artery which raises the possibilit y of inflow disease. There is also monophasic flow within the left superficial femoral, popliteal, an terior tibial, posterior tibial, peroneal and dorsalis pedis vessels. Flow within the left calf vesse ls is monophasic and dampened. IMPRESSION: 1. Moderate to extensive atherosclerotic plaque within the left lower extremity. No elevated velociti es to suggest a hemodynamically significant stenosis within the left lower extremity. 2. Monophasic dampened flow within the left calf vessels. 3. Monophasic flow within the left common femoral artery which raises the possibility of inflow disea se. ACT 112: Negative or not required by law. Electronically signed by: Parish Vinson M.D. 11/14/2020 2:36 PM
[2020-11-15] MEDS: VANCOMYCIN HCL 1,000 MG in SODIUM CHLORIDE 0.9% 250 ML IV SCH ×2 (02:50→20:39)
[2020-11-15] MEDS: HYDROmorphone INJ 1 MG/ML SYRINGE IV PRN ×2 (04:46→22:44)
[2020-11-15 06:15] LABS: Hematocrit (blood only) 36.9 % (37-47); Hemoglobin 12.1 g/dL (12.0-16.0); Mean Corpuscular Hemoglobin 30.6 pg (25-34); Mean Corpuscular Hgb Conc 32.8 g/dL (32-36); Mean Corpuscular Volume 93.4 fL (80-100); Platelet Count 259 K/uL (130-400); RDW Coefficient of Variation 13.2 % (11.5-14.5); RDW Standard Deviation 45.4 fL (36.4-46.3); Red Blood Count 3.95 M/uL (4.2-5.4); White Blood Count 7.18 K/uL (4.8-10.8)
[2020-11-15 06:48] LABS: BUN Creatinine Ratio 20.8 (10-20); Calcium 8.1 mg/dl (8.5-10.1); Est GFR (African American) 62.5; Est GFR (Non-African American) 53.9; Potassium 4.2 mmol/L (3.5-5.1)
[2020-11-15] MEDS: FLUTICASONE/VILANTEROL 100/25MCG 14 PUFFS/INHALER INH SCH (07:29)
[2020-11-15] MEDS: ACETAMINOPHEN 500 MG TAB PO SCH ×3 (07:30→20:41)
[2020-11-15] MEDS: VENLAFAXINE HCL XR 75 MG CAPXR PO SCH (07:30)
[2020-11-15] MEDS: OXYBUTYNIN CHLORIDE 5 MG TAB PO SCH ×2 (07:30→20:40)
[2020-11-15] MEDS: ASPIRIN 81 MG ECTAB PO SCH (07:31)
[2020-11-15] MEDS: PENTOXIFYLLINE 400MG EXT REL TAB PO SCH ×3 (07:31→20:40)
[2020-11-15] MEDS: ATORVASTATIN 40 MG TAB PO SCH (07:31)
[2020-11-15] MEDS: HEPARIN SOD 5,000 UNIT/0.5 ML VIAL SQ SCH ×2 (07:31→20:40)
[2020-11-15] MEDS: PIPERACILLIN/TAZOBACTAM 3.375 GM in DEXTROSE 5% 100 ML IV SCH ×3 (07:32→16:47)
[2020-11-15] MEDS: INSULIN ASPART 100 UNITS/ML 3 ML PEN SC SCH ×4 (08:52→20:44)
[2020-11-15] MEDS ORDERED: HYDROmorphone INJ 1 MG/ML SYRINGE IV PRN (10:39)
--- NOTE | 2020-11-15 10:39 | Hospitalist Progress Note ---
Date of Service November 15, 2020 Assessment & Plan (1) Cellulitis: Patient is a 80 year old female with PMHx COPD, DM2, PAD, R BKA, urge incontinence admitted for LLE pain with chronic nonhealing wounds and KM. LLE pain and ulceration/cellulitis, PAD: -Failed outpatient wound care, no outpatient antibiotics. -No osteomyelitis noted on XR imaging of LLE. -Blood cultures pending, will have been negative for 48 hours at 6pm 11/15. -Consult to wound care nurse placed. -Started on Vancomycin and Zosyn in ED; will continue at this time pending Vascular Surgery recommendations. PAD -LLE Duplex performed which showed moderate to extensive LLE atherosclerotic plaque, without hemodynamically significant stenosis. Also noted to have possible findings of inflow disease in left common femoral artery. -Vascular Surgery consulted, appreciate recommendations. -Have transitioned aspirin to 81mg daily, with transition of simvastatin to atorvastatin 40mg daily. Continue pentoxifylline. -Tylenol 1000mg TID scheduled. Oxycodone 5mg q6h prn moderate pain. Dilaudid 1mg q8h prn severe pain. KM: -Resolved. Initially presented with creatinine 1.64; creatinine 1.00 this AM after IV hydration. -Encourage PO water intake. -On discussion with Dr. Baca, PCP patient is on Lasix 40mg BID for severe LE edema; legs without edema at this time. Can monitor and resume Lasix if worsening swelling while admitted. Chronic Opiate Use: -On review of PDMP, patient has been taking Tramadol 100mg TID for LLE pain since prescribed in August. Prior to that patient was receiving about 112 tablets per month; this was for several months. Has in general been on tramadol for many years. -Patient's pain has been relatively difficult to control. -PAD pain and ulcer pain likely contributing with chronic opiate use. -Pain better controlled with current regimen - tylenol 1000mgs tid scheduled, oral oxycodone and iv hydromorphone prn Hypokalemia: -K low at 3.2 in the ED, given 20meq KCl IV, 40meq PO; with resolution of hypokalemia. DM2: -Hold home medications, SSI. -Hgb A1c 6.6% this admission. COPD: -stable -Continue home Advair Diskus, with as needed albuterol. Urge Incontinence: -Continue home Oxybutynin. Depression: -Continue home Venlafaxine. Rash R thigh, suspect atopic dermatitis: -Continue topical hydrocortisone cream. Rash appears to be improving. Code: FULL CODE FEN: DM2 Heart Healthy diet DVT: Heparin SQ BID Dispo: Med/Surg for IV antibiotics, pain control, Vascular Surgery consultation, -Will need PT/OT for dispo planning. Admission and Anticipated Discharge Date Admission Date: November 13, 2020 Supervising Physician Co-Signing Physician Notes Resident Physician Supervision Note: I independently interviewed and examined the patient and verified the ryder history and physical, reviewed labs and image studies, discussed the case with the resident Dr. Flannery and agree with the findings and care plan. Subjective Patient without acute events overnight. Did use Dilaudid several times for leg pain, but looked much more comfortable this morning on my examination. Denies chest pain, SOB, nausea, abdominal pain. Does not wear oxygen at home. Did turn off oxygen while in room and patient's O2 saturation stayed at 94%. Review of Systems Review of Systems: All systems reviewed & are unremarkable except as noted in HPI & below Constitutional: no fever, no chills and no malaise Respiratory: no cough and no dyspnea Cardiovascular: no chest pain, no palpitations and no edema Gastrointestinal: no abdominal pain, no constipation and no diarrhea/loose stools Genitourinary: no dysuria and no hematuria Physical Exam Constitutional: well developed and + obese; no acute distress Respiratory: normal respiratory effort, lungs clear to auscultation Cardiovascular: RRR, no murmur, no edema Gastrointestinal (Abdomen): normal bowel sounds, soft, nontender, no hepatosplenomegaly Skin: L posterior calf with ulceration and clear drainage running from the mid calf to the ankle, with dressing in place. RLE notable for BKA. 1cm anterior knee shallow ulceration. Neurologic: resting tremor noted, intermittent Psychiatric: A+Ox3, euthymic affect (much more comofortable today on exam) Results & Data Results & Data ([facility]) Vital Signs (Past 12 Hours) Vital Signs Temp Pulse Resp BP Pulse Ox 11/15/20 08:34 36.8 C 68 18 157/67 H 95 Resident Activity Tracking Resident Involvement: Resident Care Provided Care Provided: Adult [facility] Medicine
--- NOTE | 2020-11-15 14:10 | Pharmacy Report ---
Pharmacy Abx Dose Short Note - Date of Service November 15, 2020 - Assessment & Plan Assessment 80 year old F receiving vancomycin and Zosyn for treatment of a non-healing LLE cellulitis/ulceration. Plan is to continue IV broad spectrum antibiotics at least until vascular surgery can evaluate the patient. Blood cultures x 2 ordered and show no growth at 24 hours. Day # 3 of antimicrobial therapy. Plan Vancomycin * Given significant improvement in renal function - obtained a random level today ~10 hours after previous dose, which returned at 22.2 * Continue dose of 1000 mg IV every 18 hours - likely adequate given random level and treatment for goal trough * Goal trough level for cellulitis : 10 to 20 mcg/mL * Will reassess renal function tomorrow and order follow-up level as appropriate Zosyn * 3.375 g IV q8h remains appropriate at this time Pharmacy will continue to follow and will adjust dose/frequency as necessary. Thank you.
[2020-11-15] MEDS: oxyCODONE HCL IR 5 MG TAB (IMMEDIATE RELEASE) PO PRN (15:36)
[2020-11-15] MEDS ORDERED: HYDROmorphone INJ 0.5 MG/0.5 ML SYR IV STA (16:50)
[2020-11-15] MEDS ORDERED: KETOROLAC TROMETHAMINE 15 MG/ML VIAL IV PRN (16:51)
[2020-11-16] MEDS: PIPERACILLIN/TAZOBACTAM 3.375 GM in DEXTROSE 5% 100 ML IV SCH ×3 (00:38→16:07)
--- NOTE | 2020-11-16 01:17 | Vascular Medicine Consultation ---
Date of Consultation November 16, 2020 Assessment & Plan (1) PAD (peripheral artery disease): 2. Nonhealing left lower extremity ulcerations/cellulitis 3. Suspected chronic venous insufficiency 4. Type 2 diabetes 5. Left carotid artery, subclavian artery disease 6. Resolved KM 7. Altered mental status Patient with longstanding, progressive left lower extremity wounds. Lateral forefoot wound appears neuropathic/ischemic. Wounds over valente/calf appear more venous in nature. Patient unable to participate with exam but left lower extremity perfusion does appear reduced. Previously had toe pressures in the 30s 6 months ago consistent with impaired wound healing. Current arterial duplex notable for monophasic dampened flow suggestive of underappreciated high-grade stenosis in left arterial system. Prior duplex previously noted severe mid SFA disease. Recommend left lower extremity angiogram at some point. If stable from a mental status standpoint this could be completed as an inpatient on Friday. Long-term when PAD issues addressed recommend more aggressive compression for venous insufficiency. Would also consider venous reflux ultrasound as an outpatient to evaluate for superficial venous reflux potentially amenable to ablation. Thank you for allowing us to participate in the care of this patient. Please contact with any questions. History of Present Illness Attending Physician: Gricle Barger MD History of Present Illness At time of interview patient confused unable to provide much history. Majority of history obtained from review of EMR. Ms. Avila is a 80-year-old woman who was admitted 11/13/2020 in the setting of nonhealing left lower extremity wound. Prior history remarkable for known left lower extremity PAD, carotid artery disease post left CEA, left subclavian artery disease, chronic venous insufficiency, type 2 diabetes, tobacco abuse, COPD, urge incontinence, spinal stenosis, chronic pain with peripheral neuropathy. 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 Initially wound present 1 month ago but has progressed despite regular wound care. Referred to ED by PCP for concern of cellulitis. On admission started on broad-spectrum antibiotics. Plain films without evidence of osteomyelitis. Blood cultures no growth to date. Noted to have KM with creatinine up to 1.6 now down back to baseline. 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 SETH 0.55, left toe pressure 30 mmHg Venous duplex 09/2020: No DVT Lower extremity duplex at [facility] 11/2020: Dampened monophasic waveforms without high-grade stenosis noted. Concern for inflow disease raised. Allergies Allergy/AdvReac Type Severity Reaction Status Date / Time hydrogen peroxide Allergy Unknown ALLERGY Verified 11/13/20 18:57 REPORTED "PEROXIDE"-red and itchy Home Medications Medication Instructions Recorded Confirmed Type aspirin 325 mg PO DAILY 11/13/20 11/13/20 History fluticasone propion-salmeterol 2 inh INHALATION DAILY 11/13/20 11/13/20 History [Advair Diskus] furosemide 40 mg PO BID 11/13/20 11/13/20 History gabapentin 0 mg PO DIRECTED 11/13/20 11/13/20 History gabapentin 0 mg PO UD 11/13/20 11/13/20 History glipizide 5 mg PO DAILY 11/13/20 11/13/20 History meloxicam 15 mg PO DAILY 11/13/20 11/13/20 History oxybutynin chloride 5 mg PO BID 11/13/20 11/13/20 History pentoxifylline 400 mg PO TID 11/13/20 11/13/20 History simvastatin 20 mg PO DAILY 11/13/20 11/13/20 History venlafaxine 75 mg PO DAILY 11/13/20 11/13/20 History Patient History Medical History Carotid stenosis, asymptomatic Hx of right BKA PAD (peripheral artery disease) Social History Smoking Status: Heavy tobacco smoker Tobacco Type: Cigarettes Second Hand Exposure: No; Do You Dip or Chew Tobacco: No; Tobacco Cessation Education Requested by Patient: No Hx Alcohol Use: No Hx Substance Use: No Preferred Language: French Communication Ability: Impaired Veterinary 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 Required: No Beliefs That Will Affect Care: None Current Living Situation: Alone Other Information That Helps Us Care for You: No Feels Safe at Home: Yes Assistive Devices: Denture - Upper, Glasses, Prosthesis and Walker Review of Systems Review of Systems: Unobtainable due to cognitive status Physical Exam Physical Exam: General: Comfortable, confused Eyes: Sclerae anicteric HENT: Oropharynx clear Lungs: Clear to auscultation bilaterally anteriorly Cardiac: Regular rate and rhythm, no murmurs Abdomen: Soft, nontender Neuro: Nonfocal Psych: Confused to place, time Extremities/Vascular: -- 2+ radial bilaterally --1+ femoral bilaterally --Nonpalpable popliteal bilaterally --Patient would not allow me to feel her pulses in her foot --Normal cap refill in first and second digits --Small superficial ulceration on lateral aspect left foot at level of MTP --Distal valente/calf wound care images reviewed, superficial skin breakdown. --Chronic venous stasis changes. Results & Data ([facility]) Vital Signs (Past 12 Hours) Vital Signs Temp Pulse Resp BP BP Pulse Ox 11/15/20 22:37 98.2 F 65 18 174/71 H 97 11/15/20 16:32 98.1 F 61 18 166/62 H 96 PG Care Time/CCT Total # of Minutes Spent Total Time Spent with Patient: Total time spent is greater than 50% in coordination of care (as documented) at patient's floor/unit and/or counseling patient: Coding Level of Care Code 85786 Initial Inpt Care Lvl 3 Diagnoses PAD (peripheral artery disease) I73.9
[2020-11-16] MEDS: HYDROmorphone INJ 1 MG/ML SYRINGE IV PRN ×3 (05:42→17:14)
[2020-11-16] MEDS: FLUTICASONE/VILANTEROL 100/25MCG 14 PUFFS/INHALER INH SCH (07:30)
[2020-11-16] MEDS: ATORVASTATIN 40 MG TAB PO SCH (07:30)
[2020-11-16] MEDS: VENLAFAXINE HCL XR 75 MG CAPXR PO SCH (07:30)
[2020-11-16] MEDS: ASPIRIN 81 MG ECTAB PO SCH (07:31)
[2020-11-16] MEDS: PENTOXIFYLLINE 400MG EXT REL TAB PO SCH ×3 (07:31→19:28)
[2020-11-16] MEDS: ACETAMINOPHEN 500 MG TAB PO SCH ×3 (07:32→19:28)
[2020-11-16] MEDS: OXYBUTYNIN CHLORIDE 5 MG TAB PO SCH ×2 (07:32→19:28)
[2020-11-16] MEDS: HEPARIN SOD 5,000 UNIT/0.5 ML VIAL SQ SCH ×2 (07:32→19:28)
--- NOTE | 2020-11-16 07:34 | Hospitalist Progress Note ---
Date of Service November 16, 2020 Assessment & Plan (1) Cellulitis: Patient is a 80 year old female with PMHx COPD, DM2, PAD, R BKA, urge incontinence admitted for LLE pain with chronic nonhealing wounds and KM. LLE pain and ulceration/cellulitis, PAD: -Failed outpatient wound care, no outpatient antibiotics. -No osteomyelitis noted on XR imaging of LLE. -Blood cultures negative. -Consult to wound care nurse placed for dressing changes daily. -LLE Duplex performed which showed moderate to extensive LLE atherosclerotic plaque, without hemodynamically significant stenosis. Also noted to have possible findings of inflow disease in left common femoral artery. -Vascular Surgery consulted, for angio tomorrow if can tolerate. -Have transitioned aspirin to 81mg daily, with transition of simvastatin to atorvastatin 40mg daily. Continue pentoxifylline. -Tylenol 1000mg TID and Toradol 15mg TID scheduled. Oxycodone 5mg q6h prn moderate pain. Dilaudid 0.5mg q4h prn severe pain. -Continue Dapto/Zosyn. -PT/OT for dispo planning. Altered mental status: -Since admission patient has had some episodes of acute confusion/agitation. -Possible etiologies of AMS include metabolic encephalopathy from LLE wound infection, delirium 2/2 severe LLE pain and high doses of opiate pain medications, unfamiliar environment. -Did refuse labwork this morning however labwork from yesterday without electrolyte disturbance, renal dysfunction, elevated WBC count. Blood cultures negative. -Delirium precautions, 1:1 as needed. -Ativan 0.5mg PRN dressing changes and prior to angiogram Friday. -Treatment of nonhealing wound infection as above. -Will speak with family regarding baseline mental status to determine safety for home. KM: -Resolved. Initially presented with creatinine 1.64; creatinine returned to normal after IV hydration. -Encourage PO water intake. -On discussion with Dr. Baca, PCP patient is on Lasix 40mg BID for severe LE edema; legs without edema at this time. -Can monitor and resume Lasix if worsening swelling while admitted. This has not yet been required. Chronic Opiate Use: -On review of PDMP, patient has been taking Tramadol 100mg TID for LLE pain since prescribed in August. Prior to that patient was receiving about 112 tablets per month; this was for several months. Has in general been on tramadol for many years. -Patient's pain has been relatively difficult to control. -Likely some element of PAD pain and ulcer pain as described above, continue treatment of such with Vascular input. -Some element of increased pain possibly secondary to chronic opiate use, which would explain her relative need for increased dosing of opiate pain medication in the hospital setting. -Scheduled Tylenol and Toradol with prn opiate medications as described above. Hypokalemia: -Resolved. DM2: -Hold home medications, SSI. -Hgb A1c 6.6% this admission. COPD: -No symptoms of SOB per patient, and no lung exam findings suggestive of acute lung pathology. -Supplemental O2 only as needed for O2 <90%. No baseline supplemental O2 requirement. -Continue home Advair Diskus, with as needed albuterol. Urge Incontinence: -Continue home Oxybutynin. Depression: -Continue home Venlafaxine. Rash R thigh, suspect atopic dermatitis: -Continue topical hydrocortisone cream. Rash appears to be improving. Code: FULL CODE FEN: DM2 Heart Healthy diet DVT: Heparin SQ BID Dispo: Med/Surg for IV antibiotics, pain control, Vascular Surgeryintervention Admission and Anticipated Discharge Date Admission Date: November 13, 2020 Supervising Physician Co-Signing Physician Notes Resident Physician Supervision Note: I independently interviewed and examined the patient and verified the ryder history and physical, reviewed labs and image studies, discussed the case with the resident Dr. Flannery and agree with the findings and care plan. Subjective Patient without overnight events. This morning was comfortable appearing on my interview. Did not remember our conversation yesterday afternoon about her pain, but did remember being upset over her pain. Later this morning patient was very agitated during LLE dressing change and tried to bite nursing, and received Ativan 0.5mg IV. Following that she was calm. Denies chest pain, shortness of breath, abdominal pain, nausea. Does not like the food this afternoon. This afternoon, does not remember trying to bite a nurse. Review of Systems Review of Systems: All systems reviewed & are unremarkable except as noted in HPI & below Constitutional: no fever, no chills and no malaise Respiratory: no cough and no dyspnea Cardiovascular: no chest pain and no palpitations Gastrointestinal: no abdominal pain Physical Exam Constitutional: well developed and + obese; no acute distress Respiratory: normal respiratory effort, lungs clear to auscultation Cardiovascular: RRR, no murmur, no edema Gastrointestinal (Abdomen): normal bowel sounds, soft, nontender, no hepatosplenomegaly Psychiatric: Orientation: alert, oriented to person and oriented to place Affect: euthymic affect Results & Data Results & Data ([facility]) Vital Signs (Past 12 Hours) Vital Signs Temp Pulse Resp BP Pulse Ox 11/15/20 22:37 36.8 C 65 18 174/71 H 97 Resident Activity Tracking Resident Involvement: Resident Care Provided Care Provided: Adult Hospital Medicine
[2020-11-16] MEDS: INSULIN ASPART 100 UNITS/ML 3 ML PEN SC SCH ×4 (09:09→20:44)
[2020-11-16] MEDS ORDERED: LORazepam 0.5 MG/1 ML VIAL IV STA (09:15)
[2020-11-16] MEDS: DAPTOmycin 200 MG in SYRINGE 0 ML IV SCH (13:28)
[2020-11-16] MEDS: KETOROLAC TROMETHAMINE 15 MG/ML VIAL IV PRN (13:45)
[2020-11-16] MEDS: NICOTINE 14 MG/24 HR PATCH TD SCH (16:10)
--- NOTE | 2020-11-16 21:10 | Cardiology Progress Note ---
Date of Service November 16, 2020 Assessment & Plan (1) PAD (peripheral artery disease): 2. Nonhealing left lower extremity ulcerations/cellulitis 3. Suspected chronic venous insufficiency 4. Type 2 diabetes 5. Left carotid artery, subclavian artery disease 6. Resolved KM 7. Altered mental status Feel patient will potentially benefit from angiogram/endovascular intervention at some point. Has had issues with delirium over the last 2 days. Had tentatively considered angiogram tomorrow but would be unable to tolerate procedure in her current state and feel we should avoid additional procedural sedating medicines at this time. Angiogram could potentially be done Friday if things more stable or as an outpatient if needed. Long-term will need further assessment for superficial venous disease which can be done as an outpatient as well. Admission and Anticipated Discharge Date Admission Date: November 13, 2020 Subjective Patient intermittently confused throughout the day. Attempted to bite her nurse at one point. When I spoke with patient she was upset, demanding a bath. Unable to provide any other relevant history Review of Systems Review of Systems: Unobtainable due to cognitive status Physical Exam Physical Exam: General: Agitated Eyes: Sclerae anicteric Psych: Confused to place, time Extremities/Vascular: --Left lower extremity dressed. Notable rash over bilateral thighs. Patient did not allow any other exam Results & Data ([facility]) Vital Signs (Past 12 Hours) Vital Signs Temp Pulse Resp BP Pulse Ox 11/16/20 15:55 98.1 F 62 16 180/71 H 93 PG Care Time/CCT Total # of Minutes Spent Total Time Spent with Patient: Total time spent is greater than 50% in coordination of care (as documented) at patient's floor/unit and/or counseling patient: Coding Level of Care Code 65756 Subseq Hosp Care Lvl 2 Diagnoses PAD (peripheral artery disease) I73.9
[2020-11-17] MEDS ORDERED: Nursing to Pharmacy Communication SCH ×2 (00:15→12:30)
[2020-11-17] MEDS: KETOROLAC TROMETHAMINE 15 MG/ML VIAL IV PRN ×2 (00:21→17:35)
[2020-11-17] MEDS: PIPERACILLIN/TAZOBACTAM 3.375 GM in DEXTROSE 5% 100 ML IV SCH ×4 (00:21→23:49)
[2020-11-17] MEDS: oxyCODONE HCL IR 5 MG TAB (IMMEDIATE RELEASE) PO PRN ×2 (04:04→15:59)
[2020-11-17] MEDS: INSULIN ASPART 100 UNITS/ML 3 ML PEN SC SCH ×4 (06:22→21:25)
[2020-11-17 07:48] LABS: Hematocrit (blood only) 41.9 % (37-47); Mean Corpuscular Hemoglobin 30.4 pg (25-34); Mean Corpuscular Hgb Conc 33.4 g/dL (32-36); Mean Corpuscular Volume 90.9 fL (80-100); Mean Platelet Volume 10.3 fL (7.4-10.4); Platelet Count 345 K/uL (130-400); RDW Coefficient of Variation 13.1 % (11.5-14.5); RDW Standard Deviation 43.5 fL (36.4-46.3); Red Blood Count 4.61 M/uL (4.2-5.4); White Blood Count 7.42 K/uL (4.8-10.8)
[2020-11-17 08:27] LABS: BUN Creatinine Ratio 13.7 (10-20); Calcium 8.9 mg/dl (8.5-10.1); Creatinine Clr Calc Pharmacy 60.2 ml/min; Est GFR (African American) 91.4; Est GFR (Non-African American) 78.9; Potassium 3.4 mmol/L (3.5-5.1)
[2020-11-17] MEDS: HYDROmorphone INJ 1 MG/ML SYRINGE IV PRN ×4 (08:41→22:32)
[2020-11-17] MEDS: FLUTICASONE/VILANTEROL 100/25MCG 14 PUFFS/INHALER INH SCH (08:44)
[2020-11-17] MEDS: NICOTINE 14 MG/24 HR PATCH TD SCH (08:45)
[2020-11-17] MEDS: HEPARIN SOD 5,000 UNIT/0.5 ML VIAL SQ SCH ×2 (08:47→19:45)
[2020-11-17] MEDS: PENTOXIFYLLINE 400MG EXT REL TAB PO SCH ×3 (08:47→19:45)
[2020-11-17] MEDS: OXYBUTYNIN CHLORIDE 5 MG TAB PO SCH ×2 (08:48→19:45)
[2020-11-17] MEDS: ACETAMINOPHEN 500 MG TAB PO SCH ×3 (08:48→19:45)
[2020-11-17] MEDS: ASPIRIN 81 MG ECTAB PO SCH (08:48)
[2020-11-17] MEDS: VENLAFAXINE HCL XR 75 MG CAPXR PO SCH (08:48)
[2020-11-17] MEDS ORDERED: POTASSIUM CHLORIDE CRTAB 20 MEQ TABCR PO STA (08:54)
[2020-11-17] MEDS: LORazepam 0.5 MG/1 ML VIAL IV PRN (08:55)
[2020-11-17] MEDS: ONDANSETRON INJ 2 MG/ML 2 ML VIAL IV PRN ×2 (09:31→09:33)
--- NOTE | 2020-11-17 10:40 | Cardiology Progress Note ---
Date of Service November 17, 2020 Assessment & Plan (1) PAD (peripheral artery disease): 2. Nonhealing left lower extremity ulcerations/cellulitis 3. Suspected chronic venous insufficiency 4. Type 2 diabetes 5. Left carotid artery, subclavian artery disease 6. Resolved KM 7. Altered mental status--improving Patient with recurrent delirium overnight, seems to be improving. Feel she will likely benefit from lower extremity angiogram/intervention to left SFA and will tentatively plan for Friday morning. Long-term will also need assessment for superficial venous disease which can be performed as outpatient. Admission and Anticipated Discharge Date Admission Date: November 13, 2020 Subjective Patient currently more alert. States she is starting to feel better, has intermittent left foot pain. No other acute concerns. Review of Systems Review of Systems: All systems reviewed & are unremarkable except as noted in HPI & below Physical Exam Physical Exam: General: Alert to person and place, cooperative, somewhat confused Eyes: Sclerae anicteric Extremities/Vascular: --Left lower extremity wounds dressed. -- 2+ radial bilaterally --Nonpalpable popliteal bilaterally --Diminished left pedal pulses --Normal cap refill --Distal valente/calf wound care images reviewed, superficial skin breakdown. --Chronic venous stasis changes. Results & Data ([facility]) Vital Signs (Past 12 Hours) Vital Signs Temp Pulse Resp BP BP Pulse Ox 11/17/20 07:15 36.9 C 78 20 161/74 H 94 11/17/20 00:15 181/72 H 11/16/20 23:52 36.9 C 78 18 202/72 H 94 Laboratory Results Laboratory Results - last 24 hr 11/16/20 11/16/20 11/16/20 12:12 17:06 20:37 WBC RBC Hgb Hct MCV MCH MCHC RDW Std Deviation RDW Coeff of Iisah Plt Count MPV Sodium Potassium Chloride Carbon Dioxide Anion Gap BUN Creatinine Est Cr Clr Drug Dosing Est GFR ( Amer) Est GFR (Non-Af Amer) BUN/Creatinine Ratio Glucose POC Glucose 114 H 119 H 113 H Calcium 11/17/20 11/17/20 11/17/20 06:02 07:17 07:17 WBC 7.42 RBC 4.61 Hgb 14.0 Hct 41.9 MCV 90.9 MCH 30.4 MCHC 33.4 RDW Std Deviation 43.5 RDW Coeff of Isiah 13.1 Plt Count 345 MPV 10.3 Sodium 139 Potassium 3.4 L Chloride 108 H Carbon Dioxide 22 Anion Gap 9.0 BUN 10 Creatinine 0.73 Est Cr Clr Drug Dosing 60.2 Est GFR ( Amer) 91.4 Est GFR (Non-Af Amer) 78.9 BUN/Creatinine Ratio 13.7 Glucose 114 H POC Glucose 123 H Calcium 8.9 PG Care Time/CCT Total # of Minutes Spent Total Time Spent with Patient: Total time spent is greater than 50% in coordination of care (as documented) at patient's floor/unit and/or counseling patient: Coding Level of Care Code 12013 Subseq Hosp Care Lvl 2 Diagnoses PAD (peripheral artery disease) I73.9
--- NOTE | 2020-11-17 12:52 | Hospitalist Progress Note ---
Date of Service November 17, 2020 Assessment & Plan (1) PAD (peripheral artery disease): Patient is a 80 year old female with PMHx COPD, DM2, PAD, R BKA, urge incontinence admitted for LLE pain with chronic nonhealing wounds and KM. LLE pain and ulceration/cellulitis, PAD: -Failed outpatient wound care, no outpatient antibiotics. -No osteomyelitis noted on XR imaging of LLE. -Blood cultures negative. -Consult to wound care nurse placed for dressing changes daily. -LLE Duplex performed which showed moderate to extensive LLE atherosclerotic plaque, without hemodynamically significant stenosis. Also noted to have possible findings of inflow disease in left common femoral artery. -Vascular Surgery consulted: will likely benefit from lower extremity angiogram/intervention to left SFA and will tentatively plan for Friday. -Long-term assessment for superficial venous disease to be performed as outpatient -Have transitioned aspirin to 81mg daily, with transition of simvastatin to atorvastatin 40mg daily. Continue pentoxifylline. -Tylenol 1000mg TID and Toradol 15mg TID scheduled. Oxycodone 5mg q6h prn moderate pain. Dilaudid 0.5mg q4h prn severe pain. -Continue Dapto/Zosyn. -PT/OT for dispo planning-- rec inpt rehab at d/c. Altered mental status: -Since admission patient has had some episodes of acute confusion/agitation. -Possible etiologies of AMS include metabolic encephalopathy from LLE wound infection, delirium 2/2 severe LLE pain and high doses of opiate pain medications, unfamiliar environment. -Labwork without significant electrolyte disturbance, renal dysfunction, elevated WBC count. Blood cultures negative. -Delirium precautions, 1:1 as needed. -Ativan 0.5mg PRN dressing changes and prior to angiogram. -Treatment of nonhealing wound infection as above. -Will speak with family regarding baseline mental status to determine safety for home. KM: -Resolved. Initially presented with creatinine 1.64; creatinine returned to normal after IV hydration. -Encourage PO water intake. -On discussion with Dr. Baca, PCP patient is on Lasix 40mg BID for severe LE edema; legs without edema at this time. -Can monitor and resume Lasix if worsening swelling while admitted. This has not yet been required. Chronic Opiate Use: -On review of PDMP, patient has been taking Tramadol 100mg TID for LLE pain since prescribed in August. Prior to that patient was receiving about 112 tablets per month; this was for several months. Has in general been on tramadol for many years. -Patient's pain has been relatively difficult to control. -Likely some element of PAD pain and ulcer pain as described above, continue treatment of such with Vascular input. -Some element of increased pain possibly secondary to chronic opiate use, which would explain her relative need for increased dosing of opiate pain medication in the hospital setting. -Scheduled Tylenol and Toradol with prn opiate medications as described above. DM2: -Hold home medications, SSI. -Hgb A1c 6.6% this admission. COPD: -No symptoms of SOB per patient, and no lung exam findings suggestive of acute lung pathology. -Supplemental O2 only as needed for O2 <90%. No baseline supplemental O2 requirement. -Continue home Advair Diskus, with as needed albuterol. Urge Incontinence: -Continue home Oxybutynin. Depression: -Continue home Venlafaxine. Rash R thigh, suspect atopic dermatitis: -Continue topical hydrocortisone cream. Rash appears to be improving. Code: FULL CODE FEN: DM2 Heart Healthy diet DVT: Heparin SQ BID Dispo: Med/Surg for IV antibiotics, pain control, Vascular Surgery intervention on Friday. PT recs inpt rehab. CM placed referral to [facility], pending. Admission and Anticipated Discharge Date Admission Date: November 13, 2020 Supervising Physician Co-Signing Physician Notes Resident Physician Supervision Note: I independently interviewed and examined the patient and verified the ryder history and physical, reviewed labs and image studies, discussed the case with the resident Dr. Rivera and agree with the findings and care plan. Subjective Pt found in bed this AM. Reports overnight of attempting to bite staff. This AM pt very teary and apologetic, appears confused still at times. Complaints of nausea and back pain and leg pain, improved after prn medications. No other acute concerns or complaints. Review of Systems Review of Systems: All systems reviewed & are unremarkable except as noted in HPI & below Physical Exam Constitutional: well developed, + obese, + disheveled and cooperative; no acute distress Eyes: PERRL, conjunctivae normal, anicteric sclerae ENMT: external ear and nose normal, oropharynx normal Respiratory: normal respiratory effort; no respiratory distress Auscultation: + diminished lung sounds Cardiovascular: RRR, no murmur, no edema Vessels: dorsalis pedis pulses present (in L foot ) Gastrointestinal (Abdomen): normal bowel sounds, soft, nontender, no hepatosplenomegaly Skin: Chronic venous stasis changes Left lower extremity wounds dressed Psychiatric: Orientation: alert, oriented to person and oriented to place Affect: + tearful affect Results & Data Results & Data ([facility]) Vital Signs (Past 12 Hours) Vital Signs Temp Pulse Resp BP Pulse Ox 11/17/20 07:15 36.9 C 78 20 161/74 H 94 Laboratory Results Laboratory Results - last 24 hr 11/16/20 11/16/20 11/17/20 17:06 20:37 06:02 WBC RBC Hgb Hct MCV MCH MCHC RDW Std Deviation RDW Coeff of Isiah Plt Count MPV Sodium Potassium Chloride Carbon Dioxide Anion Gap BUN Creatinine Est Cr Clr Drug Dosing Est GFR ( Amer) Est GFR (Non-Af Amer) BUN/Creatinine Ratio Glucose POC Glucose 119 H 113 H 123 H Calcium 11/17/20 11/17/20 11/17/20 07:17 07:17 11:58 WBC 7.42 RBC 4.61 Hgb 14.0 Hct 41.9 MCV 90.9 MCH 30.4 MCHC 33.4 RDW Std Deviation 43.5 RDW Coeff of Isiah 13.1 Plt Count 345 MPV 10.3 Sodium 139 Potassium 3.4 L Chloride 108 H Carbon Dioxide 22 Anion Gap 9.0 BUN 10 Creatinine 0.73 Est Cr Clr Drug Dosing 60.2 Est GFR ( Amer) 91.4 Est GFR (Non-Af Amer) 78.9 BUN/Creatinine Ratio 13.7 Glucose 114 H POC Glucose 115 H Calcium 8.9 Medications Administered Current Inpatient Medications Acetaminophen (Acetaminophen 500 Mg Tab) 1,000 mg PO TID [facility] Stop: 12/14/20 08:59 Last Admin: 11/17/20 08:48 Dose: 1,000 mg Documented by: Albuterol (Albuterol Hfa 8 Gm Inhaler) 2 puffs INH Q6H PRN PRN Reason: wheeze, SOB Stop: 12/13/20 22:05 Aspirin (Aspirin 81 Mg Ectab) 81 mg PO QAM [facility] Stop: 12/15/20 08:59 Last Admin: 11/17/20 08:48 Dose: 81 mg Documented by: Atorvastatin Calcium (Atorvastatin 40 Mg Tab) 40 mg PO QAM [facility] Stop: 12/15/20 08:59 Last Admin: 11/16/20 07:30 Dose: 40 mg Documented by: Dextrose (Dextrose 50% 50 Ml Syringe) 25 - 50 ml IV UD PRN; Protocol PRN Reason: Hypoglycemia Protocol Stop: 12/13/20 22:05 Fluticasone/Vilanterol (Fluticasone/Vilanterol 100/25mcg 14 Puffs/Inhaler) 1 puffs INH DAILY [facility] Stop: 12/14/20 08:59 Last Admin: 11/17/20 08:44 Dose: 1 puffs Documented by: Glucagon (Glucagon For Inj 1 Mg Vial) 1 mg SQ UD PRN; Protocol PRN Reason: Hypoglycemia Protocol Stop: 12/13/20 22:05 Glucose (Glucose 10 Tabs/Tube) 4 - 8 tabs PO UD PRN; Protocol PRN Reason: Hypoglycemia Protocol Stop: 12/13/20 22:05 Glucose (Glucose 40% Gel 15 Gm Tube) 15 - 30 gm PO UD PRN; Protocol PRN Reason: Hypoglycemia Protocol Stop: 12/13/20 22:05 Heparin Sodium (Porcine) (Heparin Sod 5,000 Unit/0.5 Ml Vial) 5,000 units SQ Q12 [facility] Stop: 12/13/20 22:05 Last Admin: 11/17/20 08:47 Dose: Not Given Documented by: Hydrocortisone (Hydrocortisone 1% Crm 30 Gm Tube) 1 appln EXT BID PRN PRN Reason: Rash R thigh Stop: 12/13/20 22:05 Last Admin: 11/16/20 16:10 Dose: 1 appln Documented by: Hydromorphone HCl (Hydromorphone Inj 1 Mg/Ml Syringe) 0.5 mg IV Q4H PRN PRN Reason: Severe Pain Stop: 11/29/20 17:13 Last Admin: 11/17/20 08:41 Dose: 0.5 mg Documented by: Piperacillin Sod/Tazobactam (Sod 3.375 gm/ Dextrose) 115 mls @ 28.75 mls/hr IV Q8H [facility]; Protocol Stop: 11/21/20 00:00 Last Admin: 11/17/20 08:55 Dose: 28 mls/hr Documented by: Daptomycin 200 mg/ Syringe 4 mls @ 2 mls/min IV Q24H [facility]; Protocol Stop: 11/20/20 18:00 Last Admin: 11/16/20 13:28 Dose: 2 mls/min Documented by: Lorazepam (Ativan) 0.5 mg in 1 mls @ 1 mls/min IV Q12H PRN PRN Reason: before dressing changes Stop: 12/16/20 17:09 Last Admin: 11/17/20 08:55 Dose: 1 mls/min Documented by: Insulin Aspart (Insulin Aspart 100 Units/Ml 3 Ml Pen) 0 units SC ACHS [facility] Stop: 12/17/20 16:29 Ketorolac Tromethamine (Ketorolac Tromethamine 15 Mg/Ml Vial) 15 mg IV Q8H PRN PRN Reason: Pain Stop: 11/18/20 16:50 Last Admin: 11/17/20 00:21 Dose: 15 mg Documented by: Miscellaneous (Carbohydrates For Hypoglycemia ) 15 - 30 gm PO UD PRN PRN Reason: Hypoglycemia Protocol Stop: 12/13/20 22:05 Miscellaneous (Remove Nicoderm Patch) 1 ea N/A DAILY@0859 [facility] Stop: 12/17/20 08:58 Last Admin: 11/17/20 08:46 Dose: 1 ea Documented by: Miscellaneous Information (Piperacill/Tazobac Consult Active) 1 ea N/A UD PRN PRN Reason: Consult Stop: 12/13/20 22:05 Miscellaneous Information (Daptomycin Consult Active) 1 ea N/A UD PRN PRN Reason: Consult Stop: 12/16/20 12:17 Nicotine (Nicotine 14 Mg/24 Hr Patch) 14 mg TD QAM [facility] Stop: 12/16/20 15:59 Last Admin: 11/17/20 08:45 Dose: 14 mg Documented by: Ondansetron HCl (Ondansetron Inj 2 Mg/Ml 2 Ml Vial) 4 mg IV Q6H PRN PRN Reason: Nausea And Vomiting Stop: 12/17/20 09:14 Last Admin: 11/17/20 09:33 Dose: 4 mg Documented by: Oxybutynin Chloride (Oxybutynin Chloride 5 Mg Tab) 5 mg PO BID [facility] Stop: 12/13/20 22:05 Last Admin: 11/17/20 08:48 Dose: 5 mg Documented by: Oxycodone HCl (Oxycodone Hcl Ir 5 Mg Tab (Immediate Release)) 5 mg PO Q6H PRN PRN Reason: MODERATE Pain (4,5,6) & Pre PT Stop: 11/27/20 22:05 Last Admin: 11/17/20 04:04 Dose: 5 mg Documented by: Pentoxifylline (Pentoxifylline 400mg Ext Rel Tab) 400 mg PO TID [facility] Stop: 12/13/20 22:05 Last Admin: 11/17/20 08:47 Dose: 400 mg Documented by: Venlafaxine HCl (Venlafaxine Hcl Xr 75 Mg Capxr) 75 mg PO DAILY [facility] Stop: 12/14/20 08:59 Last Admin: 11/17/20 08:48 Dose: 75 mg Documented by: Resident Activity Tracking Resident Involvement: Resident Care Provided Care Provided: Adult Hospital Medicine
[2020-11-17] MEDS: DAPTOmycin 200 MG in SYRINGE 0 ML IV SCH (13:20)
[2020-11-18 06:42] LABS: BUN Creatinine Ratio 17.5 (10-20); Calcium 8.7 mg/dl (8.5-10.1); Creatinine Clr Calc Pharmacy 54.9 ml/min; Est GFR (African American) 81.8; Est GFR (Non-African American) 70.6; Potassium 3.7 mmol/L (3.5-5.1)
[2020-11-18] MEDS: KETOROLAC TROMETHAMINE 15 MG/ML VIAL IV PRN ×2 (07:32→15:29)
[2020-11-18] MEDS: ASPIRIN 81 MG ECTAB PO SCH (07:34)
[2020-11-18] MEDS: FLUTICASONE/VILANTEROL 100/25MCG 14 PUFFS/INHALER INH SCH (07:34)
[2020-11-18] MEDS: PIPERACILLIN/TAZOBACTAM 3.375 GM in DEXTROSE 5% 100 ML IV SCH ×3 (07:35→23:31)
[2020-11-18] MEDS: OXYBUTYNIN CHLORIDE 5 MG TAB PO SCH ×2 (07:35→19:35)
[2020-11-18] MEDS: VENLAFAXINE HCL XR 75 MG CAPXR PO SCH (07:36)
[2020-11-18] MEDS: NICOTINE 14 MG/24 HR PATCH TD SCH (07:36)
[2020-11-18] MEDS: PENTOXIFYLLINE 400MG EXT REL TAB PO SCH ×3 (07:36→19:35)
[2020-11-18] MEDS: ACETAMINOPHEN 500 MG TAB PO SCH ×3 (07:36→19:34)
[2020-11-18] MEDS: HEPARIN SOD 5,000 UNIT/0.5 ML VIAL SQ SCH ×2 (07:37→19:35)
--- NOTE | 2020-11-18 08:10 | Hospitalist Progress Note ---
Date of Service November 18, 2020 Assessment & Plan (1) PAD (peripheral artery disease): Patient is a 80 year old female with PMHx COPD, DM2, PAD, R BKA, urge incontinence admitted for LLE pain with chronic nonhealing wounds and KM. LLE pain and ulceration/cellulitis, PAD: Failed outpatient wound care, no outpatient antibiotics. Blood cultures negative, No osteomyelitis noted on XR imaging of LLE. LLE Duplex performed which showed moderate to extensive LLE atherosclerotic plaque, without hemodynamically significant stenosis. Also noted to have possible findings of inflow disease in left common femoral artery. Have transitioned aspirin to 81mg daily, with transition of simvastatin to atorvastatin 40mg daily. Continue pentoxifylline. -Consult to wound care nurse placed for dressing changes daily. -Vascular Surgery consulted: will likely benefit from lower extremity angiogram/intervention to left SFA and will tentatively plan for Friday. -Long-term assessment for superficial venous disease to be performed as outpatient -81 mg aspirin daily -Atorvastatin 40 mg daily -Tylenol 1000mg TID and Toradol 15mg TID scheduled. Oxycodone 5mg q6h prn moderate pain. Dilaudid 0.5mg q4h prn severe pain. -Continue Dapto/Zosyn. -PT/OT for dispo planning-- rec inpt rehab at d/c. Altered mental status: -Since admission patient has had some episodes of acute confusion/agitation. Possible etiologies of AMS include metabolic encephalopathy from LLE wound infection, delirium 2/2 severe LLE pain and high doses of opiate pain medications, unfamiliar environment. Labwork without significant electrolyte disturbance, renal dysfunction, elevated WBC count. Blood cultures negative. Delirium precautions, 1:1 as needed. -Ativan 0.5mg PRN dressing changes and prior to angiogram Friday. -Treatment of nonhealing wound infection as above. -Will speak with family regarding baseline mental status to determine safety for home. KM: -Resolved. Initially presented with creatinine 1.64; creatinine returned to normal after IV hydration. -Encourage PO water intake. -On discussion with Dr. Baca, PCP patient is on Lasix 40mg BID for severe LE edema; legs without edema at this time. -Can monitor and resume Lasix if worsening swelling while admitted. This has not yet been required. Chronic Opiate Use: On review of PDMP, patient has been taking Tramadol 100mg TID for LLE pain since prescribed in August. Prior to that patient was receiving about 112 tablets per month; this was for several months. Has in general been on tramadol for many years. Patient's pain has been relatively difficult to control. Likely some element of PAD pain and ulcer pain as described above, continue treatment of such with Vascular input. Some element of increased pain possibly secondary to chronic opiate use, which would explain her relative need for increased dosing of opiate pain medication in the hospital setting. -Scheduled Tylenol and Toradol with prn opiate medications as described above. DM2: -Hold home medications, SSI. -Hgb A1c 6.6% this admission. COPD: -No symptoms of SOB per patient, and no lung exam findings suggestive of acute lung pathology. -Supplemental O2 only as needed for O2 <90%. No baseline supplemental O2 requirement. -Continue home Advair Diskus, with as needed albuterol. Urge Incontinence: -Continue home Oxybutynin. Depression: -Continue home Venlafaxine. Rash R thigh, suspect atopic dermatitis: -Continue topical hydrocortisone cream. Rash appears to be improving. Code: FULL CODE FEN: DM2 Heart Healthy diet DVT: Heparin SQ BID Dispo: Med/Surg for IV antibiotics, pain control, Vascular Surgery intervention on Friday. PT recs inpt rehab. CM placed referral to [facility], pending. Admission and Anticipated Discharge Date Admission Date: November 13, 2020 Supervising Physician Co-Signing Physician Notes Resident Physician Supervision Note: I independently interviewed and examined the patient and verified the ryder history and physical, reviewed labs and image studies, discussed the case with the resident Dr. Zak Escobedo and agree with the findings and care plan. Subjective Patient resting comfortably in bed this morning in no acute distress. Patient reports no acute events overnight, she is tolerating her diet, voiding, stool ing, in no acute distress. All questions were answered no acute concerns Physical Exam Physical Exam: General: Lying in bed in no acute distress HEENT: Normocephalic atraumatic Neck: Normal visual inspection Cardiac: Regular rate and rhythm I did not appreciate significant murmurs rubs or gallops normal S1, normal S2, no pedal edema, no calf tenderness, dorsalis pedal pulse present Respiratory: Diminished lung sounds bilaterally otherwise clear to auscultation bilaterally Neuro: AAO x3 Psych: Calm and cooperative with the interview Results & Data Results & Data ([facility]) Vital Signs (Past 12 Hours) Vital Signs Temp Pulse Pulse Resp BP BP Pulse Ox 11/18/20 07:12 36.5 C 61 20 177/70 H 91 11/18/20 00:11 37.1 C 68 16 144/74 H 93 Laboratory Results 11/18/20 11/18/20 11/17/20 Range/Units 08:08 05:44 21:25 Sodium 142 (136-145) mmol/L Potassium 3.7 (3.5-5.1) mmol/L Chloride 113 H (98-107) mmol/L Carbon Dioxide 27 (21-32) mmol/L Anion Gap 2.0 L (3-11) BUN 14 (7-18) mg/dl Creatinine 0.80 (0.6-1.2) mg/dl Est Cr Clr Drug Dosing 54.9 ml/min Est GFR ( Amer) 81.8 Est GFR (Non-Af Amer) 70.6 BUN/Creatinine Ratio 17.5 (10-20) Glucose 104 H (70-99) mg/dl POC Glucose 115 H 126 H (70-99) mg/dl Calcium 8.7 (8.5-10.1) mg/dl 11/17/20 11/17/20 11/17/20 Range/Units 17:16 11:58 07:17 Sodium 139 (136-145) mmol/L Potassium 3.4 L (3.5-5.1) mmol/L Chloride 108 H (98-107) mmol/L Carbon Dioxide 22 (21-32) mmol/L Anion Gap 9.0 (3-11) BUN 10 (7-18) mg/dl Creatinine 0.73 (0.6-1.2) mg/dl Est Cr Clr Drug Dosing 60.2 ml/min Est GFR ( Amer) 91.4 Est GFR (Non-Af Amer) 78.9 BUN/Creatinine Ratio 13.7 (10-20) Glucose 114 H (70-99) mg/dl POC Glucose 131 H 115 H (70-99) mg/dl Calcium 8.9 (8.5-10.1) mg/dl Medications Administered Current Inpatient Medications Acetaminophen (Acetaminophen 500 Mg Tab) 1,000 mg PO TID [facility] Stop: 12/14/20 08:59 Last Admin: 11/18/20 07:36 Dose: 1,000 mg Documented by: Albuterol (Albuterol Hfa 8 Gm Inhaler) 2 puffs INH Q6H PRN PRN Reason: wheeze, SOB Stop: 12/13/20 22:05 Aspirin (Aspirin 81 Mg Ectab) 81 mg PO QAM [facility] Stop: 12/15/20 08:59 Last Admin: 11/18/20 07:34 Dose: 81 mg Documented by: Atorvastatin Calcium (Atorvastatin 40 Mg Tab) 40 mg PO QAM [facility] Stop: 12/15/20 08:59 Last Admin: 11/16/20 07:30 Dose: 40 mg Documented by: Dextrose (Dextrose 50% 50 Ml Syringe) 25 - 50 ml IV UD PRN; Protocol PRN Reason: Hypoglycemia Protocol Stop: 12/13/20 22:05 Fluticasone/Vilanterol (Fluticasone/Vilanterol 100/25mcg 14 Puffs/Inhaler) 1 puffs INH DAILY [facility] Stop: 12/14/20 08:59 Last Admin: 11/18/20 07:34 Dose: 1 puffs Documented by: Glucagon (Glucagon For Inj 1 Mg Vial) 1 mg SQ UD PRN; Protocol PRN Reason: Hypoglycemia Protocol Stop: 12/13/20 22:05 Glucose (Glucose 10 Tabs/Tube) 4 - 8 tabs PO UD PRN; Protocol PRN Reason: Hypoglycemia Protocol Stop: 12/13/20 22:05 Glucose (Glucose 40% Gel 15 Gm Tube) 15 - 30 gm PO UD PRN; Protocol PRN Reason: Hypoglycemia Protocol Stop: 12/13/20 22:05 Heparin Sodium (Porcine) (Heparin Sod 5,000 Unit/0.5 Ml Vial) 5,000 units SQ Q12 [facility] Stop: 12/13/20 22:05 Last Admin: 11/18/20 07:37 Dose: 5,000 units Documented by: Hydrocortisone (Hydrocortisone 1% Crm 30 Gm Tube) 1 appln EXT BID PRN PRN Reason: Rash R thigh Stop: 12/13/20 22:05 Last Admin: 11/16/20 16:10 Dose: 1 appln Documented by: Hydromorphone HCl (Hydromorphone Inj 1 Mg/Ml Syringe) 0.5 mg IV Q4H PRN PRN Reason: Severe Pain Stop: 11/29/20 17:13 Last Admin: 11/17/20 22:32 Dose: 0.5 mg Documented by: Piperacillin Sod/Tazobactam (Sod 3.375 gm/ Dextrose) 115 mls @ 28.75 mls/hr IV Q8H [facility]; Protocol Stop: 11/21/20 00:00 Last Admin: 11/18/20 07:35 Dose: 28.8 mls/hr Documented by: Daptomycin 200 mg/ Syringe 4 mls @ 2 mls/min IV Q24H [facility]; Protocol Stop: 11/20/20 18:00 Last Admin: 11/17/20 13:20 Dose: 2 mls/min Documented by: Lorazepam (Ativan) 0.5 mg in 1 mls @ 1 mls/min IV Q12H PRN PRN Reason: before dressing changes Stop: 12/16/20 17:09 Last Admin: 11/17/20 08:55 Dose: 1 mls/min Documented by: Insulin Aspart (Insulin Aspart 100 Units/Ml 3 Ml Pen) 0 units SC ACHS [facility] Stop: 12/17/20 16:29 Last Admin: 11/17/20 21:25 Dose: Not Given Documented by: Ketorolac Tromethamine (Ketorolac Tromethamine 15 Mg/Ml Vial) 15 mg IV Q8H PRN PRN Reason: Pain Stop: 11/18/20 16:50 Last Admin: 11/18/20 07:32 Dose: 15 mg Documented by: Miscellaneous (Carbohydrates For Hypoglycemia ) 15 - 30 gm PO UD PRN PRN Reason: Hypoglycemia Protocol Stop: 12/13/20 22:05 Miscellaneous (Remove Nicoderm Patch) 1 ea N/A DAILY@0859 [facility] Stop: 12/17/20 08:58 Last Admin: 11/18/20 07:35 Dose: 1 ea Documented by: Miscellaneous Information (Piperacill/Tazobac Consult Active) 1 ea N/A UD PRN PRN Reason: Consult Stop: 12/13/20 22:05 Miscellaneous Information (Daptomycin Consult Active) 1 ea N/A UD PRN PRN Reason: Consult Stop: 12/16/20 12:17 Nicotine (Nicotine 14 Mg/24 Hr Patch) 14 mg TD QAM [facility] Stop: 12/16/20 15:59 Last Admin: 11/18/20 07:36 Dose: 14 mg Documented by: Ondansetron HCl (Ondansetron Inj 2 Mg/Ml 2 Ml Vial) 4 mg IV Q6H PRN PRN Reason: Nausea And Vomiting Stop: 12/17/20 09:14 Last Admin: 11/17/20 09:33 Dose: 4 mg Documented by: Oxybutynin Chloride (Oxybutynin Chloride 5 Mg Tab) 5 mg PO BID [facility] Stop: 12/13/20 22:05 Last Admin: 11/18/20 07:35 Dose: 5 mg Documented by: Oxycodone HCl (Oxycodone Hcl Ir 5 Mg Tab (Immediate Release)) 5 mg PO Q6H PRN PRN Reason: MODERATE Pain (4,5,6) & Pre PT Stop: 11/27/20 22:05 Last Admin: 11/17/20 15:59 Dose: 5 mg Documented by: Pentoxifylline (Pentoxifylline 400mg Ext Rel Tab) 400 mg PO TID [facility] Stop: 12/13/20 22:05 Last Admin: 11/18/20 07:36 Dose: 400 mg Documented by: Venlafaxine HCl (Venlafaxine Hcl Xr 75 Mg Capxr) 75 mg PO DAILY [facility] Stop: 12/14/20 08:59 Last Admin: 11/18/20 07:36 Dose: 75 mg Documented by: Resident Activity Tracking Resident Involvement: Resident Care Provided Care Provided: Adult Hospital Medicine
[2020-11-18] MEDS: INSULIN ASPART 100 UNITS/ML 3 ML PEN SC SCH ×4 (08:39→21:20)
[2020-11-18] MEDS: HYDROmorphone INJ 1 MG/ML SYRINGE IV PRN ×3 (08:44→17:54)
[2020-11-18] MEDS: DAPTOmycin 200 MG in SYRINGE 0 ML IV SCH (13:50)
[2020-11-18] MEDS: LORazepam 0.5 MG/1 ML VIAL IV PRN (14:47)
[2020-11-18] MEDS ORDERED: diphenhydrAMINE 50 MG/ML VIAL IV STA (17:08)
--- NOTE | 2020-11-18 20:04 | Billing Data ---
Date of Service November 18, 2020 Coding Level of Care Code 51780 Initial Inpt Care Lvl 3
[2020-11-19] MEDS: oxyCODONE HCL IR 5 MG TAB (IMMEDIATE RELEASE) PO PRN ×3 (05:25→21:52)
[2020-11-19 06:21] LABS: Basophils # (auto) 0.02 K/uL (0-0.2); Basophils % (auto) 0.3 %; Hematocrit (blood only) 38.7 % (37-47); Hemoglobin 12.8 g/dL (12.0-16.0); Immature Granulocytes # (auto) 0.01 K/uL (0.00-0.02); Immature Granulocytes % (auto) 0.2 %; Lymphocytes % (auto) 16.7 %; Mean Corpuscular Hemoglobin 30.8 pg (25-34); Mean Corpuscular Hgb Conc 33.1 g/dL (32-36); Mean Platelet Volume 9.8 fL (7.4-10.4); Monocytes # (auto) 0.58 K/uL (0.11-0.59); Monocytes % (auto) 9.7 %; Neutrophils # (auto) 4.08 K/uL (1.4-6.5); Neutrophils % (auto) 68.1 %; Platelet Count 290 K/uL (130-400); RDW Coefficient of Variation 13.8 % (11.5-14.5); RDW Standard Deviation 46.6 fL (36.4-46.3); Red Blood Count 4.16 M/uL (4.2-5.4); White Blood Count 5.99 K/uL (4.8-10.8)
[2020-11-19 07:00] LABS: BUN Creatinine Ratio 20.5 (10-20); Calcium 8.9 mg/dl (8.5-10.1); Creatinine Clr Calc Pharmacy 61.9 ml/min; Est GFR (African American) 94.6; Est GFR (Non-African American) 81.6; Potassium 3.5 mmol/L (3.5-5.1)
[2020-11-19] MEDS ORDERED: HYDROmorphone INJ 0.5 MG/0.5 ML SYR IV PRN (07:16)
[2020-11-19] MEDS: PIPERACILLIN/TAZOBACTAM 3.375 GM in DEXTROSE 5% 100 ML IV SCH ×3 (07:31→23:46)
[2020-11-19] MEDS: ACETAMINOPHEN 500 MG TAB PO SCH ×3 (07:33→19:31)
[2020-11-19] MEDS: PENTOXIFYLLINE 400MG EXT REL TAB PO SCH ×3 (07:34→19:31)
[2020-11-19] MEDS: NICOTINE 14 MG/24 HR PATCH TD SCH (07:34)
[2020-11-19] MEDS: FLUTICASONE/VILANTEROL 100/25MCG 14 PUFFS/INHALER INH SCH (07:35)
[2020-11-19] MEDS: ASPIRIN 81 MG ECTAB PO SCH (07:35)
[2020-11-19] MEDS: VENLAFAXINE HCL XR 75 MG CAPXR PO SCH (07:35)
[2020-11-19] MEDS: OXYBUTYNIN CHLORIDE 5 MG TAB PO SCH ×2 (07:35→19:31)
[2020-11-19] MEDS: HEPARIN SOD 5,000 UNIT/0.5 ML VIAL SQ SCH ×2 (07:36→19:31)
[2020-11-19] MEDS: INSULIN ASPART 100 UNITS/ML 3 ML PEN SC SCH ×4 (08:44→21:41)
--- NOTE | 2020-11-19 09:05 | Hospitalist Progress Note ---
Date of Service November 19, 2020 Assessment & Plan (1) PAD (peripheral artery disease): Patient is a 80 year old female with PMHx COPD, DM2, PAD, R BKA, urge incontinence admitted for LLE pain with chronic nonhealing wounds and KM. LLE pain and ulceration/cellulitis, PAD: Failed outpatient wound care, no outpatient antibiotics. Blood cultures negative, No osteomyelitis noted on XR imaging of LLE. LLE Duplex performed which showed moderate to extensive LLE atherosclerotic plaque, without hemodynamically significant stenosis. Also noted to have possible findings of inflow disease in left common femoral artery. Have transitioned aspirin to 81mg daily, with transition of simvastatin to atorvastatin 40mg daily. Continue pentoxifylline. -Consult to wound care nurse placed for dressing changes daily. -Try to time Dilaudid administration to coincide with dressing change -Vascular Surgery consulted: will likely benefit from lower extremity angiogram/intervention to left SFA and will tentatively plan for Friday. -Long-term assessment for superficial venous disease to be performed as outpatient -81 mg aspirin daily -Atorvastatin 40 mg daily -Tylenol 1000mg TID Oxycodone 5mg q6h prn moderate pain. Dilaudid 0.5mg q2h prn severe pain. -Toradol has significant interaction with pentoxifylline contraindicated secondary to significant bleeding risk -Increase Dilaudid frequency to every 2 hours -Continue Dapto/Zosyn. -PT/OT for dispo planning-- rec inpt rehab at d/c. Altered mental status: -Since admission patient has had some episodes of acute confusion/agitation. Possible etiologies of AMS include metabolic encephalopathy from LLE wound infection, delirium 2/2 severe LLE pain and high doses of opiate pain medications, unfamiliar environment. Labwork without significant electrolyte disturbance, renal dysfunction, elevated WBC count. Blood cultures negative. Delirium precautions, 1:1 as needed. -Adverse reaction to Ativan, do not give -Treatment of nonhealing wound infection as above. -Will speak with family regarding baseline mental status to determine safety for home. KM: -Resolved. Initially presented with creatinine 1.64; creatinine returned to normal after IV hydration. -Encourage PO water intake. -On discussion with Dr. Baca, PCP patient is on Lasix 40mg BID for severe LE edema; legs without edema at this time. -Can monitor and resume Lasix if worsening swelling while admitted. This has not yet been required. Chronic Opiate Use: On review of PDMP, patient has been taking Tramadol 100mg TID for LLE pain since prescribed in August. Prior to that patient was receiving about 112 tablets per month; this was for several months. Has in general been on tramadol for many years. Patient's pain has been relatively difficult to control. Likely some element of PAD pain and ulcer pain as described above, continue treatment of such with Vascular input. Some element of increased pain possibly secondary to chronic opiate use, which would explain her relative need for increased dosing of opiate pain medication in the hospital setting. -Scheduled Tylenol and Toradol with prn opiate medications as described above. DM2: -Hold home medications, SSI. -Hgb A1c 6.6% this admission. COPD: -No symptoms of SOB per patient, and no lung exam findings suggestive of acute lung pathology. -Supplemental O2 only as needed for O2 <90%. No baseline supplemental O2 requirement. -Continue home Advair Diskus, with as needed albuterol. Urge Incontinence: -Continue home Oxybutynin. Depression: -Continue home Venlafaxine. Rash R thigh, suspect atopic dermatitis: -Continue topical hydrocortisone cream. Rash appears to be improving. Code: FULL CODE FEN: DM2 Heart Healthy diet DVT: Heparin SQ BID Dispo: Med/Surg for IV antibiotics, pain control, Vascular Surgery intervention on Friday. PT recs inpt rehab. CM placed referral to [facility], pending. Admission and Anticipated Discharge Date Admission Date: November 13, 2020 Subjective Patient sitting upright in bed this morning significantly more oriented than before. Patient had a pleasant conversation with me this morning. I explained to the patient regarding her bad reaction to Ativan patient verbalized understanding. Patient is tolerating her diet, voiding, stooling, feels a bit constipated. All questions answered, acute concerns relate to scheduled surgery tomorrow. Physical Exam Physical Exam: General: Lying in bed in no acute distress HEENT: Normocephalic atraumatic Neck: Normal visual inspection Cardiac: Regular rate and rhythm I did not appreciate significant murmurs rubs or gallops normal S1, normal S2, no pedal edema, no calf tenderness, dorsalis pedal pulse present Respiratory: Diminished lung sounds bilaterally otherwise clear to auscultation bilaterally Neuro: AAO x3 Psych: Calm and cooperative with the interview Results & Data Results & Data ([facility]) Vital Signs (Past 12 Hours) Vital Signs Temp Pulse Resp BP Pulse Ox 11/19/20 07:46 36.6 C 67 18 188/74 H 96 11/18/20 22:48 36.9 C 71 20 189/80 H 97 Resident Activity Tracking Resident Involvement: Resident Care Provided Care Provided: Adult Hospital Medicine
[2020-11-19] MEDS ORDERED: KETOROLAC TROMETHAMINE 15 MG/ML VIAL IV PRN (09:10)
[2020-11-19] MEDS: POTASSIUM CHLORIDE CRTAB 20 MEQ TABCR PO SCH ×2 (09:50→11:20)
[2020-11-19] MEDS: HYDROmorphone INJ 0.5 MG/0.5 ML SYR IV PRN (11:19)
[2020-11-19] MEDS: POLYETHYLENE (MIRALAX) 17 GM PACK PO SCH (12:53)
[2020-11-19] MEDS: DAPTOmycin 200 MG in SYRINGE 0 ML IV SCH (13:11)
[2020-11-19] MEDS ORDERED: Nursing to Pharmacy Communication SCH (19:45)
[2020-11-20] MEDS: INSULIN ASPART 100 UNITS/ML 3 ML PEN SC SCH ×5 (06:05→20:53)
[2020-11-20] MEDS: HYDROmorphone INJ 0.5 MG/0.5 ML SYR IV PRN (07:02)
--- NOTE | 2020-11-20 09:05 | Pre Anesthesia Assessment ---
Date of Service November 20, 2020 Pre Sedation Assessment Vital Signs Temp Pulse Resp BP BP Pulse Ox 11/20/20 08:53 70 18 207/97 H 95 11/20/20 06:54 36.3 C L 68 28 H 155/74 H 96 11/19/20 23:54 36.6 C 65 18 187/72 H 95 11/19/20 15:40 36.6 C 70 16 164/75 H 97 Cardiovascular RRR, no murmur, no edema Respiratory normal respiratory effort, lungs clear to auscultation Pre-Sedation Airway Assessment Smoking Status: Heavy tobacco smoker Hx Sleep Apnea: No Hx Difficult Intubation: No Short, Thick Neck: No Thyromental Distance: < 3.5 Finger Breadths ASA: ASA3 NPO Status Date of Last Intake of Fluids: 11/19/20 Date of Last Intake of Solid Food: 11/19/20 Procedure Planning Contraindications for Sedation: none Current Medications Reviewed: Yes Notes The planned sedation has been discussed with the patient. Informed Consent was obtained. I have identified the patient, determined the appropriateness of sedation and have assessed the patient immediately prior to the procedure. All medicine(s) and interventions are by my order.
--- NOTE | 2020-11-20 09:05 | History & Physical Bridge Note ---
Date of Service November 20, 2020 History & Physical Bridge Note I have examined the patient, reviewed the History & Physical and in the interval since the performance of the History & Physical I have noted the following changes of clinical significance: no changes noted
[2020-11-20] MEDS ORDERED: niCARdipine HCL INJ 2.5 MG/ML 10 ML AMP ONE (09:12)
[2020-11-20] MEDS ORDERED: HEPARIN (PORCINE) 1000 UNIT/ML 10 ML (CATH LAB USE ONLY) ONE (09:12)
[2020-11-20] MEDS ORDERED: MIDAZOLAM HCL 5 MG/ML 1 ML VIAL ONE (09:12)
[2020-11-20] MEDS ORDERED: fentaNYL citrate 100 MCG/2 ML VIAL ONE (09:12)
[2020-11-20] MEDS ORDERED: NITROGLYCERIN/D5W 100MCG/ML 20ML SYR ONE (09:14)
--- NOTE | 2020-11-20 10:29 | Hospitalist Progress Note ---
Date of Service November 20, 2020 Assessment & Plan (1) PAD (peripheral artery disease): Patient is a 80 year old female with PMHx COPD, DM2, PAD, R BKA, urge incontinence admitted for LLE pain with chronic nonhealing wounds and KM. LLE pain and ulceration/cellulitis, PAD: - Failed outpatient wound care, no outpatient antibiotics. - Bcx negative, No osteomyelitis noted on XR imaging of LLE. - LLE Duplex; moderate to extensive LLE atherosclerotic plaque, without hemodynamically significant stenosis. - ASA 81mg daily, Atorvastatin 40mg daily. Continue pentoxifylline. - Consult to wound care nurse placed for dressing changes daily. -Timing dilaudid with dressing changes to aid pain control - Vascular Surgery consulted: Long-term assessment for superficial venous disease to be performed as outpatient - LE angiogram today - Continue Dapto/Zosyn. - PT/OT for dispo planning-- rec inpt rehab at d/c. Altered mental status: -Since admission patient has had some episodes of acute confusion/agitation. Possible etiologies of AMS include metabolic encephalopathy from LLE wound infection, delirium 2/2 severe LLE pain and high doses of opiate pain medications, unfamiliar environment. Labwork without significant electrolyte disturbance, renal dysfunction, elevated WBC count. Blood cultures negative. Delirium precautions, 1:1 as needed. -Adverse reaction to Ativan, do not give -Treatment of nonhealing wound infection as above. KM: Resolved -Encourage PO water intake. -On Lasix 40mg BID for severe LE edema; holding at this time. Chronic Opiate Use: On review of PDMP, patient has been taking Tramadol 100mg TID for LLE pain since prescribed in August. Prior to that patient was receiving about 112 tablets per month; this was for several months. Has in general been on tramadol for many years. Patient's pain has been relatively difficult to control. Likely some element of PAD pain and ulcer pain as described above, continue treatment of such with Vascular input. Some element of increased pain possibly secondary to chronic opiate use, which would explain her relative need for increased dosing of opiate pain medication in the hospital setting. -Scheduled Tylenol with prn opiate medications as described above. DM2: -Hold home medications, SSI. -Hgb A1c 6.6% this admission. COPD: -No symptoms of SOB per patient, and no lung exam findings suggestive of acute lung pathology. -Supplemental O2 only as needed for O2 <90%. No baseline supplemental O2 requirement. -Continue home Advair Diskus, with as needed albuterol. Urge Incontinence: -Continue home Oxybutynin. Depression: -Continue home Venlafaxine. Rash R thigh, suspect atopic dermatitis: -Continue topical hydrocortisone cream. Rash appears to be improving. Code: FULL CODE FEN: DM2 Heart Healthy diet DVT: Heparin SQ BID Dispo: PT recs inpt rehab. CM placed referral to [facility], pending. Admission and Anticipated Discharge Date Admission Date: November 13, 2020 Supervising Physician Co-Signing Physician Notes I personally examined the patient and verified all ryder points of history and exam, discussed case, and agree with decision making with Dr Suarez. Angry and agitated about case being delayed for a STEMI. Definitely seems to be a little confused on details, has a degree of feeling like she was held prisoner in the [facility], and the longer we talked about the situation the less clear she is on what she is talking about and the more she starts to speak with undefined pronouns. Vitals noted, in general she is awake, initially pleasant but the more we talked the more agitated she gets, no physical distress. HEENT normocephalic atraumatic mucous membranes are moist. Left foot shows dry crusted skin, her valente is dressed. Peripheral arterial diseasefor revascularization. Unfortunately she seems to likely have a degree of agitated delirium at this time. Agitated deliriumsupportive care, may need to reach out to family to discuss consent for what appears to be a necessary procedure, etc. DVT prophylaxisheparin subcu Otherwise as above Subjective continuing to have pain in left foot at site of wound. no other concerns. per nursing, decreased UOP due to being NPO all day. Review of Systems Constitutional: no fever, no chills, no body aches and no fatigue Respiratory: no cough and no dyspnea Cardiovascular: no chest pain, no dyspnea and no edema Gastrointestinal: no abdominal pain, no nausea, no vomiting, no constipation and no diarrhea/loose stools Physical Exam Physical Exam: Constitutional: elderly woman in bed, somewhat confused and demented Eyes: EOMI, pupils equal and reactive bilaterally, no scleral icterus Cardiac: RRR, no murmurs, gallops or rubs. Normal S1, S2 Pulm: CTA BL, no wheezes, rhonchi, crackles or rubs, moving air well throughout both lungs Abd: soft, nontender, nondistended, normal bowel sounds, no rebound or guarding Extremities: right BKA, left leg covered in bandages, left foot poorly perfusing with dry and blackening skin Results & Data Results & Data ([facility]) Vital Signs (Past 12 Hours) Vital Signs Temp Pulse Resp BP BP Pulse Ox 11/20/20 08:53 70 18 207/97 H 95 11/20/20 06:54 36.3 C L 68 28 H 155/74 H 96 11/19/20 23:54 36.6 C 65 18 187/72 H 95 Laboratory Results WBC 5.99 K/uL (4.8-10.8) 11/19/20 06:07 RBC 4.16 M/uL (4.2-5.4) L 11/19/20 06:07 Hgb 12.8 g/dL (12.0-16.0) 11/19/20 06:07 Hct 38.7 % (37-47) 11/19/20 06:07 MCV 93.0 fL (80-100) 11/19/20 06:07 MCH 30.8 pg (25-34) 11/19/20 06:07 MCHC 33.1 g/dL (32-36) 11/19/20 06:07 RDW Std Deviation 46.6 fL (36.4-46.3) H 11/19/20 06:07 RDW Coeff of Isiah 13.8 % (11.5-14.5) 11/19/20 06:07 Plt Count 290 K/uL (130-400) 11/19/20 06:07 MPV 9.8 fL (7.4-10.4) 11/19/20 06:07 Immature Gran % (Auto) 0.2 % 11/19/20 06:07 Neut % (Auto) 68.1 % 11/19/20 06:07 Lymph % (Auto) 16.7 % 11/19/20 06:07 Lea % (Auto) 9.7 % 11/19/20 06:07 Eos % (Auto) 5.0 % 11/19/20 06:07 Baso % (Auto) 0.3 % 11/19/20 06:07 Neut # (Auto) 4.08 K/uL (1.4-6.5) 11/19/20 06:07 Lymph # (Auto) 1.00 K/uL (1.2-3.4) L 11/19/20 06:07 Lea # (Auto) 0.58 K/uL (0.11-0.59) 11/19/20 06:07 Eos # (Auto) 0.30 K/uL (0-0.5) 11/19/20 06:07 Baso # (Auto) 0.02 K/uL (0-0.2) 11/19/20 06:07 Immature Gran # (Auto) 0.01 K/uL (0.00-0.02) 11/19/20 06:07 PT 9.9 Seconds (9.0-12.0) 11/13/20 17:15 INR 1.0 (0.9-1.1) 11/13/20 17:15 APTT 25.4 Seconds (21.0-31.0) 11/13/20 17:15 PTT Ratio 1.0 11/13/20 17:15 Sodium 145 mmol/L (136-145) 11/19/20 06:07 Potassium 3.5 mmol/L (3.5-5.1) 11/19/20 06:07 Chloride 115 mmol/L (98-107) H 11/19/20 06:07 Carbon Dioxide 26 mmol/L (21-32) 11/19/20 06:07 Anion Gap 4.0 (3-11) 11/19/20 06:07 BUN 15 mg/dl (7-18) 11/19/20 06:07 Creatinine 0.71 mg/dl (0.6-1.2) 11/19/20 06:07 Est Cr Clr Drug Dosing 61.9 ml/min 11/19/20 06:07 Est GFR ( Amer) 94.6 11/19/20 06:07 Est GFR (Non-Af Amer) 81.6 11/19/20 06:07 BUN/Creatinine Ratio 20.5 (10-20) H 11/19/20 06:07 Glucose 114 mg/dl (70-99) H 11/19/20 06:07 POC Glucose 109 mg/dl (70-99) H 11/20/20 12:24 Estimat Average Glucose 143 mg/dl 11/14/20 05:50 Hemoglobin A1c 6.6 % (4.5-5.6) H 11/14/20 05:50 Lactate 0.9 mmol/L (0.4-2.0) 11/13/20 18:23 Calcium 8.9 mg/dl (8.5-10.1) 11/19/20 06:07 Phosphorus 3.0 mg/dl (2.5-4.9) 11/13/20 17:15 Magnesium 2.4 mg/dl (1.8-2.4) 11/13/20 17:15 Total Bilirubin 0.4 mg/dl (0.2-1) 11/13/20 17:15 Direct Bilirubin < 0.1 mg/dl (0-0.2) 11/13/20 17:15 AST 13 U/L (15-37) L 11/13/20 17:15 ALT 11 U/L (12-78) L 11/13/20 17:15 Alkaline Phosphatase 125 U/L (45-117) H 11/13/20 17:15 Total Creatine Kinase 63 U/L (26-192) 11/13/20 17:15 Troponin I < 0.015 ng/ml (0-0.045) 11/13/20 17:15 Total Protein 6.7 gm/dl (6.4-8.2) 11/13/20 17:15 Albumin 3.2 gm/dl (3.4-5.0) L 11/13/20 17:15 Globulin 3.5 gm/dl (2.5-4.0) 11/13/20 17:15 Albumin/Globulin Ratio 0.9 (0.9-2) 11/13/20 17:15 Triglycerides 109 mg/dl (0-150) 11/15/20 05:59 Cholesterol 111 mg/dl (0-200) 11/15/20 05:59 LDL Cholesterol, Calc 55 mg/dl 11/15/20 05:59 VLDL Cholesterol, Calc 22 mg/dl 11/15/20 05:59 HDL Cholesterol 34 mg/dl 11/15/20 05:59 Cholesterol/HDL Ratio 3 11/15/20 05:59 Procalcitonin 0.05 ng/ml (0-0.5) 11/13/20 17:15 Random Vancomycin 22.2 mcg/ml 11/15/20 12:54 COVID-19 Eval Order [facility]FluRsv at [facility] 11/13/20 17:00 SARS-CoV-2 (PCR) NEGATIVE (Negative) 11/13/20 17:00 Influenza Type A (PCR) Negative (Neg) 11/13/20 17:00 Influenza Type B (PCR) Negative (Neg) 11/13/20 17:00 RSV (RT-PCR) Negative (Neg) 11/13/20 17:00 Impressions Foot X-Ray 11/13/20 16:49 XR foot LT 2V CLINICAL HISTORY: Cellulitis COMPARISON: None FINDINGS: Tarsometatarsal joints are intact. No acute fracture within the left foot is noted. Plantar calcaneal spurring is noted. There is no evidence for osteomyelitis. 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 IMPRESSION: No acute fracture or evidence for osteomyelitis within the left foot. Knee X-Ray 11/13/20 16:49 XR knee RT 1 or 2V routine CLINICAL HISTORY: anterior knee ulcer, cellulitis COMPARISON: CT of the right lower extremity August 17, 2013. FINDINGS: Incidental note is made of vascular stents within the right leg at the level of the distal right femur. Postoperative findings from right below- knee amputation are noted. There is no evidence for osteomyelitis. There is no soft tissue gas. Patellofemoral compartment osteoarthritis is present. No acute fracture is identified. IMPRESSION: Status post right below knee amputation. No evidence for osteomyelitis. No acute fracture. Tibia/Fibula X-Ray 11/13/20 16:49 XR tibia fibula LT 2V CLINICAL HISTORY: Cellulitis COMPARISON: None FINDINGS: Alignment of the left knee is anatomic. There is patellofemoral compartment joint space narrowing with osteophytosis. There is no evidence for left knee joint effusion. There is no acute fracture or evidence for osteomyelitis within the left tibia or fibula. A cutaneous edema. IMPRESSION: No acute fracture or evidence for osteomyelitis within the left tibia or fibula. Duplex Scan Lower Extremity Artery 11/14/20 13:30 LEFT LOWER EXTREMITY ARTERIAL DOPPLER ULTRASOUND CLINICAL HISTORY: Non-healing ulcer lateral 5th met and post calf COMPARISON STUDY: Bilateral lower extremity arterial Doppler ultrasound November 05, 2012. TECHNIQUE: Grayscale, color and duplex Doppler sonography of the arterial system of the left lower extremity was performed. FINDINGS: Ankle-brachial indices could not be obtained in this patient. Note is made of moderate to extensive atherosclerotic plaque within the left lower extremity. No elevated velocities were identified. Note is made of monophasic flow within the left common femoral artery which raises the possibility of inflow disease. There is also monophasic flow within the left superficial femoral, popliteal, anterior tibial, posterior tibial, peroneal and dorsalis pedis vessels. Flow within the left calf vessels is monophasic and dampened. IMPRESSION: 1. Moderate to extensive atherosclerotic plaque within the left lower extremity. No elevated velocities to suggest a hemodynamically significant stenosis within the left lower extremity. 2. Monophasic dampened flow within the left calf vessels. 3. Monophasic flow within the left common femoral artery which raises the possibility of inflow disease. Resident Activity Tracking Resident Involvement: Resident Care Provided Care Provided: Adult Hospital Medicine
[2020-11-20] MEDS: PIPERACILLIN/TAZOBACTAM 3.375 GM in DEXTROSE 5% 100 ML IV SCH ×3 (13:36→23:06)
[2020-11-20] MEDS: FLUTICASONE/VILANTEROL 100/25MCG 14 PUFFS/INHALER INH SCH (13:37)
[2020-11-20] MEDS: OXYBUTYNIN CHLORIDE 5 MG TAB PO SCH ×2 (13:39→19:41)
[2020-11-20] MEDS: ASPIRIN 81 MG ECTAB PO SCH (13:40)
[2020-11-20] MEDS: VENLAFAXINE HCL XR 75 MG CAPXR PO SCH (13:40)
[2020-11-20] MEDS: NICOTINE 14 MG/24 HR PATCH TD SCH (13:40)
[2020-11-20] MEDS: ACETAMINOPHEN 500 MG TAB PO SCH ×3 (13:41→19:40)
[2020-11-20] MEDS: PENTOXIFYLLINE 400MG EXT REL TAB PO SCH ×3 (13:41→19:40)
[2020-11-20] MEDS: HEPARIN SOD 5,000 UNIT/0.5 ML VIAL SQ SCH ×2 (13:54→19:41)
[2020-11-20] MEDS: POLYETHYLENE (MIRALAX) 17 GM PACK PO SCH (13:55)
[2020-11-20] MEDS ORDERED: Nursing to Pharmacy Communication SCH (15:30)
[2020-11-20] MEDS: oxyCODONE HCL IR 5 MG TAB (IMMEDIATE RELEASE) PO PRN (16:01)
[2020-11-20] MEDS: ONDANSETRON INJ 2 MG/ML 2 ML VIAL IV PRN (16:01)
[2020-11-20] MEDS: DAPTOmycin 200 MG in SYRINGE 0 ML IV SCH (16:02)
--- NOTE | 2020-11-20 20:36 | Billing Data ---
Date of Service November 20, 2020 Coding Level of Care Code 61502 Subseq Hosp Care Lvl 3
[2020-11-21] MEDS: oxyCODONE HCL IR 5 MG TAB (IMMEDIATE RELEASE) PO PRN ×3 (07:42→23:06)
[2020-11-21] MEDS: NICOTINE 14 MG/24 HR PATCH TD SCH (07:45)
[2020-11-21] MEDS: ACETAMINOPHEN 500 MG TAB PO SCH ×3 (07:46→19:33)
[2020-11-21] MEDS: PENTOXIFYLLINE 400MG EXT REL TAB PO SCH ×3 (07:46→19:34)
[2020-11-21] MEDS: POLYETHYLENE (MIRALAX) 17 GM PACK PO SCH (07:48)
[2020-11-21] MEDS: ASPIRIN 81 MG ECTAB PO SCH (07:49)
[2020-11-21] MEDS: HEPARIN SOD 5,000 UNIT/0.5 ML VIAL SQ SCH ×2 (07:49→19:34)
[2020-11-21] MEDS: OXYBUTYNIN CHLORIDE 5 MG TAB PO SCH ×2 (07:50→19:34)
[2020-11-21] MEDS: FLUTICASONE/VILANTEROL 100/25MCG 14 PUFFS/INHALER INH SCH (07:50)
[2020-11-21] MEDS: VENLAFAXINE HCL XR 75 MG CAPXR PO SCH (07:51)
[2020-11-21 08:04] LABS: Basophils # (auto) 0.01 K/uL (0-0.2); Basophils % (auto) 0.2 %; Eosinophils # (auto) 0.39 K/uL (0-0.5); Eosinophils % (auto) 6.2 %; Hematocrit (blood only) 39.4 % (37-47); Hemoglobin 13.4 g/dL (12.0-16.0); Immature Granulocytes # (auto) 0.02 K/uL (0.00-0.02); Immature Granulocytes % (auto) 0.3 %; Lymphocytes # (auto) 1.12 K/uL (1.2-3.4); Lymphocytes % (auto) 17.7 %; Mean Corpuscular Volume 91.2 fL (80-100); Mean Platelet Volume 9.7 fL (7.4-10.4); Monocytes # (auto) 0.45 K/uL (0.11-0.59); Monocytes % (auto) 7.1 %; Neutrophils # (auto) 4.34 K/uL (1.4-6.5); Neutrophils % (auto) 68.5 %; Platelet Count 288 K/uL (130-400); RDW Standard Deviation 46.1 fL (36.4-46.3); Red Blood Count 4.32 M/uL (4.2-5.4); White Blood Count 6.33 K/uL (4.8-10.8)
[2020-11-21 08:40] LABS: BUN Creatinine Ratio 16.4 (10-20); Calcium 9.1 mg/dl (8.5-10.1); Creatinine Clr Calc Pharmacy 62.8 ml/min; Est GFR (African American) 96.2; Potassium 3.7 mmol/L (3.5-5.1)
[2020-11-21] MEDS: INSULIN ASPART 100 UNITS/ML 3 ML PEN SC SCH ×4 (09:26→21:19)
[2020-11-21] MEDS: PIPERACILLIN/TAZOBACTAM 3.375 GM in DEXTROSE 5% 100 ML IV SCH ×3 (09:26→23:52)
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
[2020-11-21] MEDS: HYDROmorphone INJ 0.5 MG/0.5 ML SYR IV PRN (10:32)
[2020-11-21] MEDS: DAPTOmycin 200 MG in SYRINGE 0 ML IV SCH (16:36)
--- NOTE | 2020-11-21 20:13 | Billing Data ---
Date of Service November 21, 2020 Coding Level of Care Code 93969 Subseq Hosp Care Lvl 3
[2020-11-21] MEDS ORDERED: Nursing to Pharmacy Communication SCH (21:45)
[2020-11-22] MEDS: INSULIN ASPART 100 UNITS/ML 3 ML PEN SC SCH ×5 (00:39→21:45)
[2020-11-22] MEDS: HYDROmorphone INJ 0.5 MG/0.5 ML SYR IV PRN (06:35)
[2020-11-22] MEDS: oxyCODONE HCL IR 5 MG TAB (IMMEDIATE RELEASE) PO PRN ×2 (08:26→20:46)
[2020-11-22] MEDS: OXYBUTYNIN CHLORIDE 5 MG TAB PO SCH ×2 (08:27→21:40)
[2020-11-22] MEDS: VENLAFAXINE HCL XR 75 MG CAPXR PO SCH (08:27)
[2020-11-22] MEDS: ACETAMINOPHEN 500 MG TAB PO SCH ×3 (08:27→20:14)
[2020-11-22] MEDS: PENTOXIFYLLINE 400MG EXT REL TAB PO SCH ×3 (08:27→21:44)
[2020-11-22] MEDS: NICOTINE 14 MG/24 HR PATCH TD SCH (08:28)
[2020-11-22] MEDS: POLYETHYLENE (MIRALAX) 17 GM PACK PO SCH (08:28)
[2020-11-22] MEDS: ASPIRIN 81 MG ECTAB PO SCH (08:28)
[2020-11-22] MEDS: FLUTICASONE/VILANTEROL 100/25MCG 14 PUFFS/INHALER INH SCH (08:29)
[2020-11-22] MEDS: PIPERACILLIN/TAZOBACTAM 3.375 GM in DEXTROSE 5% 100 ML IV SCH ×2 (08:39→17:43)
[2020-11-22] MEDS: HEPARIN SOD 5,000 UNIT/0.5 ML VIAL SQ SCH ×2 (08:58→21:39)
--- NOTE | 2020-11-22 09:42 | Hospitalist Progress Note ---
Date of Service November 22, 2020 Assessment & Plan (1) PAD (peripheral artery disease): Patient is a 80 year old female with PMHx COPD, DM2, PAD, R BKA, urge incontinence admitted for LLE pain with chronic nonhealing wounds and KM. LLE pain and ulceration/cellulitis, PAD: - Bcx negative, No osteomyelitis noted on XR imaging of LLE. - LLE Duplex: moderate to extensive LLE atherosclerotic plaque, without hemodynamically significant stenosis. - Arteriogram LE today - ASA 81mg daily, Atorvastatin 40mg daily. Continue pentoxifylline. - Consult to wound care nurse placed for dressing changes daily. -Timing dilaudid with dressing changes to aid pain control - Continue Dapto/Zosyn. Hospital Delirium - Delirium precautions - avoid sedating agents, benzos - frequent reorientation to setting KM: Resolved - Encourage PO water intake. - On Lasix 40mg BID for severe LE edema; holding at this time. Chronic Opiate Use: - 100 mg Tramadol TID at home, longterm hx of abuse - likely secondary/associated with worsening PAD - scheduled tylenol and opiates PRN with PT and wound care DM2: -Hold home medications, SSI. -Hgb A1c 6.6% this admission. COPD: -No symptoms of SOB per patient, and no lung exam findings suggestive of acute lung pathology. -Supplemental O2 only as needed for O2 <90%. No baseline supplemental O2 requirement. -Continue home Advair Diskus, with as needed albuterol. Urge Incontinence: -Continue home Oxybutynin. Depression: -Continue home Venlafaxine. Rash R thigh, suspect atopic dermatitis: -Continue topical hydrocortisone cream. Rash appears to be improving. Code: FULL CODE FEN: DM2 Heart Healthy diet DVT: Heparin SQ BID Dispo: Bed available at [facility]. Will D/C after arteriogram +/- stenting completed. Admission and Anticipated Discharge Date Admission Date: November 13, 2020 Supervising Physician Co-Signing Physician Notes I personally examined the patient and verified all ryder points of history and exam, discussed case, and agree with decision making with Dr Suarez. doing OT. feeling OK overall. for revascularization later today. Vitals noted, in general she is awake, pleasant nad, no physical distress. HEENT normocephalic atraumatic mucous membranes are moist. Left foot shows dry crusted skin, her valente is dressed. Peripheral arterial diseasefor revascularization today. continue abx for ulcer Agitated deliriumsupportive care,reorientation. much more calm last 2 days. DVT prophylaxisheparin subcu Otherwise as above Subjective No complaints this morning. Plan for arteriogram later today. Review of Systems Constitutional: no fever, no chills, no body aches and no fatigue Respiratory: no cough and no dyspnea Cardiovascular: no chest pain, no dyspnea and no edema Gastrointestinal: no abdominal pain, no nausea, no vomiting, no constipation and no diarrhea/loose stools Physical Exam Physical Exam: Constitutional: elderly woman in bed,pleasantly conversive Eyes: EOMI, pupils equal and reactive bilaterally, no scleral icterus Cardiac: RRR, no murmurs, gallops or rubs. Normal S1, S2 Pulm: CTA BL, no wheezes, rhonchi, crackles or rubs, moving air well throughout both lungs Abd: soft, nontender, nondistended, normal bowel sounds, no rebound or guarding Extremities: right BKA, left leg covered in bandages, left foot poorly perfusing with dry skin Skin: flat, red, blanching discreet rash along upper thighs and right arm. nonpruritic, nonpainful. Results & Data Results & Data ([facility]) Vital Signs (Past 12 Hours) Vital Signs Temp Pulse Resp BP Pulse Ox 11/22/20 07:36 36.8 C 63 18 178/84 H 94 11/21/20 22:53 36.6 C 64 18 173/76 H 94 Resident Activity Tracking Resident Involvement: Resident Care Provided Care Provided: Adult Hospital Medicine
[2020-11-22] MEDS: HYDROCORTISONE 1% CRM 30 GM TUBE EXT SCH ×2 (09:44→21:39)
[2020-11-22] MEDS: DAPTOmycin 200 MG in SYRINGE 0 ML IV SCH (14:18)
[2020-11-22] MEDS ORDERED: fentaNYL citrate 100 MCG/2 ML VIAL ONE (14:54)
[2020-11-22] MEDS ORDERED: niCARdipine HCL INJ 2.5 MG/ML 10 ML AMP ONE (14:54)
[2020-11-22] MEDS ORDERED: MIDAZOLAM HCL 1 MG/ML 2ML VIAL ONE (14:54)
[2020-11-22] MEDS ORDERED: HEPARIN (PORCINE) 1000 UNIT/ML 10 ML (CATH LAB USE ONLY) ONE (14:55)
--- NOTE | 2020-11-22 14:55 | Pre Anesthesia Assessment ---
Date of Service November 22, 2020 Pre Sedation Assessment Vital Signs Temp Pulse Resp BP BP Pulse Ox 11/22/20 07:36 98.2 F 63 18 178/84 H 94 11/21/20 22:53 97.9 F 64 18 173/76 H 94 11/21/20 15:40 98.2 F 65 18 157/74 H 92 Cardiovascular RRR, no murmur, no edema Respiratory normal respiratory effort, lungs clear to auscultation Pre-Sedation Airway Assessment Smoking Status: Heavy tobacco smoker Hx Sleep Apnea: No Hx Difficult Intubation: No Short, Thick Neck: No Thyromental Distance: < 3.5 Finger Breadths Oral Cavity: + WNL Mallampati Class: III ASA: ASA3 NPO Status Date of Last Intake of Fluids: 11/19/20 Date of Last Intake of Solid Food: 11/19/20 Procedure Planning Contraindications for Sedation: none Current Medications Reviewed: Yes Notes The planned sedation has been discussed with the patient. Informed Consent was obtained. I have identified the patient, determined the appropriateness of sedation and have assessed the patient immediately prior to the procedure. All medicine(s) and interventions are by my order.
[2020-11-22] MEDS ORDERED: hydrALAZINE HCL 20 MG/ML VIAL ONE (15:20)
[2020-11-22] MEDS: AMOXICILLIN/CLAVULANATE 875 MG TAB PO SCH (18:19)
[2020-11-22] MEDS ORDERED: Nursing to Pharmacy Communication SCH (18:30)
--- NOTE | 2020-11-22 19:32 | Billing Data ---
Date of Service November 22, 2020 Coding Level of Care Code 73660 Subseq Hosp Care Lvl 2
[2020-11-22] MEDS: ONDANSETRON INJ 2 MG/ML 2 ML VIAL IV PRN (20:05)
[2020-11-22] MEDS: DOXYCYCLINE HYCLATE 100 MG CAP PO SCH (21:38)
--- NOTE | 2020-11-22 22:54 | Post Anesthesia Assessment ---
Date of Service November 22, 2020 Post Sedation Assessment Vital Signs Temp Pulse Pulse Resp BP BP Pulse Ox 11/22/20 19:32 97.9 F 75 18 137/70 93 11/22/20 17:22 97.3 F L 62 20 157/75 H 94 11/22/20 16:30 70 18 142/68 H 98 11/22/20 16:15 62 18 152/63 H 98 11/22/20 16:09 64 18 164/59 H 98 11/22/20 07:36 98.2 F 63 18 178/84 H 94 Recovery Score Activity: Moves 4 extremities Respiration: Deep Breath/Cough Circulation: +/-20% PreAnes Value Consciousness: Fully Awake Oxygen Saturation: > 92% On Room Air Post Anesthesia Score: 10 Discharge Sedation Level of Care: Fast Track Phase II Post Sedation Plan On clinical assessment, the patient appears to have tolerated the sedation without complications. Patient is recovering as anticipated. Patient will continue to be monitored by nursing and may be discharged when sedation discharge criteria are met per below protocol. Upon Completions of procedure up to 15 minutes continue every 5 minute vital signs and the P.A.R. score; then discharge to a Phase I or Fast Track to Phase II per the following guidelines: * Discharge Patient to appropriate Phase II area if PAR is 8 or greater or return to pre- procedure baseline. The post - procedure orders will be as directed. * If PAR score is less than 8 or not return to pre-procedure baseline then patient will follow Phase I monitoring till PAR is reached for Phase II. The Phase I may be done in procedure room or may call to secure a Phase I area. * If naloxone or flumazenil are used for reversal, hold in Phase I for continued monitoring from when last reversal dose was given for a minimum of 60 minutes or longer pending the nurse and/or physician discretion of patient condition before discharge to Phase II. Please call the Sedation Physician to re-evaluate and complete post-note for discharge to Phase II area. Do NOT discharge from procedure sedation or Phase 1 until post- sedation evaluation note is complete by procedure /sedation MD Sedation Discharge Instructions to be given to the patient at discharge to home.
--- NOTE | 2020-11-22 22:58 | Endovascular Procedure Note ---
PG Endovascular Procedure Rpt Pre & Post Diagnosis Peripheral arterial disease I identified the patient and participated in the time-out.: Yes Procedure Operation Date: 11/20/20 09:00 Actual Procedures p Angio Extremity Bilateral - Jadiel Jha MD Operation Date: 11/22/20 15:00 Actual Procedures p Angio Extremity Bilateral - Jadiel Jha MD s Ultrasound Vascular Access - Jadiel Jha MD Surgeon Blanco Jha MD Retirement Plan Specialist Debbie Batista Estimated Blood Loss 15 Findings See Below Abdominal aorta--distal infrarenal artery ectatic above bifurcation. No significant stenotic disease Right lower extremity-- -Common iliac ectatic prior to 95% distal stenosis prior to bifurcation External, internal iliac small and underfilled. -TRIAL MANAGEMENT ASSOCIATE, profunda widely patent -SFA 100% proximal occlusion just before prior stent. Left lower extremity-- -50% proximal common iliac (20+ mmHg pullback gradient). External iliac, internal iliac patent with mild diffuse disease -TRIAL MANAGEMENT ASSOCIATE, profunda widely patent -SFA diffuse 60% proximal disease (30 mmHg pullback gradient), 80% focal distal stenosis -Popliteal widely patent -EDITH patent to the foot with focal 70% mid, distal lesions. -M[employer]DLE [employer]CHO[employer] SPORTS COACH and peroneal widely patent to the foot -DPA widely patent and gives off deep plantar artery. MIDDLE SCHO[employer] SPORTS COACH continues to patent medial plantar artery.. Anesthesia Type RN Sedation Contrast Contrast: 30 Complications none Disposition Accompanied Patient To Recovery: No Disposition: PCU Description of Procedure Right TRIAL MANAGEMENT ASSOCIATE obtained under ultrasound guidance, short 5Fr sheath placed Abdominal aortogram and proximal left lower extremity angiogram performed with RIM catheter. Selective angiography with quick cross catheter placed in mid SFA. Contrast used: 30 Moderate sedation: [id number] Access closure: Manual Summary: 1. Left lower extremity --50% proximal common iliac, 60% diffuse proximal SFA, 80% focal distal SFA. Patent three-vessel runoff to the foot (EDITH with focal 70% lesions) 2. Right lower extremity --95% distal common iliac, 100% proximal SFA occlusion. Recommendations: Left SFA endovascular intervention with common iliac artery stenting and angioplasty to the proximal, distal SFA Right distal common iliac artery stenting to facilitate left leg intervention. I attest to the content of the Intraoperative Record and any orders documented therein. Any exceptions are noted below. Vascular Charges Angiography/Venography Procedure 1: Angiography/Venography charges: [id number] Initial 3rd order or selective abd, pelvic, or LE branch Procedure 2: Angiography/Venography charges: [id number] Aortography, abd + b/l iliofem LE, catheter, radiological S&I Additional Services Procedure 1: Additional Services Charges: 97276 Ultrasound guidance - vascular access Procedure 2: Additional Services Charges: 52407 Moderate sedation initial 15 min Procedure 3: Additional Services Charges: 10186 Moderate sedation, each additional 15 min
--- NOTE | 2020-11-22 23:24 | Vascular Medicine ProgressNote ---
Date of Service November 22, 2020 Assessment & Plan (1) PAD (peripheral artery disease): 2. Nonhealing left lower extremity ulcerations/cellulitis 3. Suspected chronic venous insufficiency 4. Type 2 diabetes 5. Left carotid artery, subclavian artery disease 6. Resolved KM 7. Altered mental status--improving Underwent bilateral lower extremity angiogram today. Found to have severe left common iliac, proximal and distal SFA disease. Tibial vessels patent with three-vessel runoff to the foot. Unfortunately unable to perform endovascular intervention today due to cardiac emergency involving another patient. My apologies to patient and primary team. Current PAD is chronic and if patient being discharged to SNF tomorrow procedure can be scheduled as an outpatient next week. If still in hospital could perform procedure on Friday 11/24. Long-term will also need assessment for superficial venous disease which can be performed as outpatient. Admission and Anticipated Discharge Date Admission Date: November 13, 2020 Subjective Patient underwent bilateral lower extremity angiography this afternoon. She tolerated procedure well except for some difficulty with back pain. Review of Systems Review of Systems: All systems reviewed & are unremarkable except as noted in HPI & below Physical Exam Physical Exam: General: comfortable and sleepy Eyes: Sclerae anicteric Extremities/Vascular: -- RT RUG CUTTER no hematoma, 1+ pulsse --Left lower extremity dressed. Normal capillary refill. Scaling involving distal leg below bandage. Results & Data ([facility]) Vital Signs (Past 12 Hours) Vital Signs Temp Pulse Pulse Resp BP BP Pulse Ox 11/22/20 19:32 97.9 F 75 18 137/70 93 11/22/20 17:22 97.3 F L 62 20 157/75 H 94 11/22/20 16:30 70 18 142/68 H 98 11/22/20 16:15 62 18 152/63 H 98 11/22/20 16:09 64 18 164/59 H 98 PG Care Time/CCT Total # of Minutes Spent Total Time Spent with Patient: Total time spent is greater than 50% in coordination of care (as documented) at patient's floor/unit and/or counseling patient: Coding Level of Care Code 49819 Subseq Hosp Care Lvl 3 Diagnoses PAD (peripheral artery disease) I73.9
[2020-11-23] MEDS: oxyCODONE HCL IR 5 MG TAB (IMMEDIATE RELEASE) PO PRN (02:43)
--- NOTE | 2020-11-23 07:27 | Discharge Summary ---
Date of Service November 23, 2020 Admission HPI Per Admitting Provider Patient is a 80 year old female with PMHx COPD, DM2, PAD, R BKA, Urge Incontinence, that presents for 1 month history of nonhealing and worsening LLE wound. Patient notes that roughly 1 month ago she developed a small ulcer about the size of her fingertip on the back of her distal L calf and that since then it has continued to grow despite being treated every 2 days by a wound nurse. She states that her wound nurse today felt that the lesion had grown to the point that she would require antibiotic therapy and was referred to her PCP's office who subsequently urged the patient to come to the ED for evaluation and possible IV antibiotics. Patient notes that currently she is experiencing pain in the L mid calf 8/10 in addition to pain lateral to her 5th digit on the L leg as well. She states she has not taken any antibiotics for this pain. She also notes a rash on her R thigh, but is unsure of when it fully developed. She has been putting an OTC lotion on it which has improved it slightly. She otherwise denies any chest pain, chest pressure, fever, chills, SOB, abdominal pain, headache, visual changes. She notes that she has followed with Dr. Padilla in the past and that he is the one who had done her R BKA ~8 years ago. Med Hx: COPD, DM2, PAD, R BKA, Urge incontinence Surg Hx: R BKA, Cholecystectomy Social Hx: Smokes 1.5 PPD since the age of 18, no alcohol or illicit drug use. Admission Exam Per Admitting Provider Constitutional: + ill appearing, + disheveled and cooperative Eyes: PERRL, conjunctivae normal, anicteric sclerae ENMT: external ear and nose normal, oropharynx normal Neck: trachea midline, no thyromegaly Respiratory: normal respiratory effort Auscultation: + diminished lung sounds and + wheezes (worse in the upper lobes b/l) Cardiovascular: Rate/Rhythm: regular rate and regular rhythm Heart Sounds: no murmur and no cardiac rub Vessels: dorsalis pedis pulses present (in L foot ) Gastrointestinal (Abdomen): normal bowel sounds, soft, nontender, no hepatosplenomegaly Musculoskeletal: -L foot warm to the touch with dorsalis pedis pulse palpable -Small circular 1cm tender to palpation lesion lateral to the 5th metacarpal at the MTP on the L -L posterior calf with ulceration and clear drainage running from the mid calf to the ankle, significantly tender to palpation Psychiatric: A+Ox3, euthymic affect Principal Diagnosis Cellulitis, PAD Discharge Exam Constitutional: elderly woman in bed,pleasantly conversive Eyes: EOMI, pupils equal and reactive bilaterally, no scleral icterus Cardiac: RRR, no murmurs, gallops or rubs. Normal S1, S2 Pulm: CTA BL, no wheezes, rhonchi, crackles or rubs, moving air well throughout both lungs Abd: soft, nontender, nondistended, normal bowel sounds, no rebound or guarding Extremities: right BKA, left valente with dry erythematous tender cellulitic area cephalad to the ankle to midshin, left foot poorly perfusing with dry skin Skin: flat, red, blanching discreet rash along upper thighs and right arm. nonpruritic, nonpainful. Discharge Data Allergies Allergy/AdvReac Type Severity Reaction Status Date / Time hydrogen peroxide Allergy Unknown ALLERGY Verified 11/13/20 18:57 REPORTED "PEROXIDE"-red and itchy lorazepam [From Ativan] AdvReac Mild flushed BP Verified 11/18/20 17:14 elevated , COMPLAINTS OF SKIN BURNING Consultations 11/13/20 18:28 ED Decision to Admit Stat 11/14/20 17:05 Consult Vascular Surgery Routine Procedures Performed Operation Date: 11/20/20 09:00 Actual Procedures p Angio Extremity Bilateral - Jadiel Jha MD Operation Date: 11/22/20 15:00 Actual Procedures p Angio Extremity Bilateral - Jadiel Jha MD s Ultrasound Vascular Access - Jadiel Jha MD Ordered Studies 11/14/20 13:30 US arterial duplex LE LT Urgent 11/20/20 09:16 CL Cath Imgs for PACS use only Stat 11/22/20 06:55 CL Cath Imgs for PACS use only Stat Hospital Course (1) PAD (peripheral artery disease): Patient is a 80 year old female with PMHx COPD, DM2, PAD, R BKA, urge incontinence admitted for LLE pain with chronic nonhealing wounds and KM. LLE pain and ulceration/cellulitis, PAD: - Bcx negative, No osteomyelitis noted on XR imaging of LLE. - LLE Duplex: moderate to extensive LLE atherosclerotic plaque, without hemodynamically significant stenosis. - Arteriogram LE: severe left common iliac, proximal and distal SFA disease. Tibial vessels patent with three-vessel runoff to the foot. - will need repeat procedure to stent vessels next week - ASA 81mg daily, Atorvastatin 40mg daily. Continue pentoxifylline. - 10 days of Dapto/Zosyn converted to Doxy/Augmentin. Less likely to be severe infection, mostly limited improvement due to poor blood flow. Continue antibiotics and recheck wound for improvement after blood flow improved. All other chronic conditions managed per home regimens. Total Time Total Time Spent Total Time Spent (In Minutes): Less than 30 Discharge Plan Discharge Items Patient Disposition: Transfer [facility] Fac Reason For Visit: Non Healing LLE Wounds Discharge Diagnosis: Nonhealing lower extremity wounds Activity: Resume your previous activity Non-emergency contact: Primary Care Provider Call non-emergency contact if: you have any medication questions and your pain is not controlled Follow-up/Referrals: Og Baca MD [Primary Care Provider] - Diet: Heart Healthy and Low Sodium (2gm) Addtl Attending Provider Instructions: (1) PAD (peripheral artery disease): Patient is a 80 year old female with PMHx COPD, DM2, PAD, R BKA, urge incontinence admitted for LLE pain with chronic nonhealing wounds and KM. LLE pain and ulceration/cellulitis, PAD: - Bcx negative, No osteomyelitis noted on XR imaging of LLE. - LLE Duplex: moderate to extensive LLE atherosclerotic plaque, without hemodynamically significant stenosis. - Arteriogram LE: severe left common iliac, proximal and distal SFA disease. Tibial vessels patent with three-vessel runoff to the foot. - will need repeat procedure to stent vessels next week - ASA 81mg daily, Atorvastatin 40mg daily. Continue pentoxifylline. - Consult to wound care nurse placed for dressing changes daily. -Timing dilaudid with dressing changes to aid pain control - 10 days of Dapto/Zosyn converted to Doxy/Augmentin. Continue antibiotics and recheck wound for improvement after blood flow improved. Hospital Delirium - Delirium precautions - avoid sedating agents, benzos - frequent reorientation to setting KM: Resolved - Encourage PO water intake. - On Lasix 40mg BID for severe LE edema; holding at this time. Chronic Opiate Use: - 100 mg Tramadol TID at home, senior living hx of abuse - likely secondary/associated with worsening PAD - scheduled tylenol, minimal opiates with PT and wound dressing changes DM2: -Hold home medications, SSI. -Hgb A1c 6.6% this admission. COPD: -No symptoms of SOB per patient, and no lung exam findings suggestive of acute lung pathology. -Supplemental O2 only as needed for O2 <90%. No baseline supplemental O2 requirement. -Continue home Advair Diskus, with as needed albuterol. Urge Incontinence: -Continue home Oxybutynin. Depression: -Continue home Venlafaxine. Rash R thigh, suspect atopic dermatitis: -Continue topical hydrocortisone cream. Rash appears to be improving. Code: FULL CODE FEN: DM2 Heart Healthy diet DVT: Heparin SQ BID Dispo: Bed available at [facility]. Will D/C after arteriogram +/- stenting completed. Admission and Anticipated Discharge Date Pending Studies at Discharge: No Stand-Alone Forms: [facility] Skilled Items Patient informed of condition?: Yes DNR: No Discharge Level of Care: Skilled Communicable Disease: No Discharge Prognosis: Stable Lines: None Urinary Catheter: No Medications and DC Order Prescriptions: New amoxicillin-pot clavulanate [Augmentin] 875-125 mg Tablet 1 tab PO BIDM 10 Days Qty: 20 RF: 0 doxycycline hyclate 100 mg Capsule 100 mg PO BID Qty: 20 RF: 0 atorvastatin 40 mg Tablet 40 mg PO QAM Qty: 30 RF: 0 aspirin [Aspirin Low Dose] 81 mg tablet,delayed release (DR/EC) 81 mg PO DAILY Qty: 30 RF: 0 Continued furosemide 40 mg tablet 40 mg PO BID RF: 0 glipizide 5 mg tablet 5 mg PO DAILY RF: 0 oxybutynin chloride 5 mg tablet 5 mg PO BID RF: 0 meloxicam 15 mg tablet 15 mg PO DAILY RF: 0 pentoxifylline 400 mg tablet extended release 400 mg PO TID RF: 0 venlafaxine 75 mg capsule,extended release 24hr 75 mg PO DAILY RF: 0 fluticasone propion-salmeterol [Advair Diskus] 250-50 mcg/dose blister with device 2 inh INHALATION DAILY RF: 0 gabapentin 300 mg capsule 0 mg PO DIRECTED RF: 0 gabapentin 800 mg tablet 0 mg PO UD RF: 0 Discontinued aspirin 325 mg Tablet 325 mg PO DAILY RF: 0 simvastatin 20 mg tablet 20 mg PO DAILY RF: 0 Discharge Orders: Discharge Order (Routine); Ordered 11/23/20 Ordered By: Kassandra Franco/Other Patient Handouts: Managing Type 2 Diabetes, Managing Diabetes: The A1C Test Admission Data Admit Date/Time: 11/13/20 20:43 Attending Provider: Weston Serrano Admit Provider: Adam Cartwright Primary Care Provider: Og Baca Other Providers: Matt Fu ; [place] ; Augusto Mclaughlin at [place] ; Kassandra Suarez ; Gricel Barger ; [facility], ; Oziel Molina ; Jadiel Jha Other Interventions: Discharge Summary Assessment (RN) Last Done: 11/23/20 15:29 Supervising Physician Co-Signing Physician Notes I personally examined the patient and verified all ryder points of history and e xam, discussed case, and agree with decision making with Dr Suarez. Feeling okay. Has SNF bed, has procedure scheduled for next week as far as revascularization, yesterday was able to be diagnostic only. Vitals noted, in general she is awake, pleasant nad, no physical distress. HEENT normocephalic atraumatic mucous membranes are moist. Left foot shows dry crusted skin, her valente is dressed. Peripheral arterial diseasefor revascularization next week. Continue antibiotics and supportive care. Agitated deliriumsupportive care,reorientation. Has been doing much better in this regard. DVT prophylaxisheparin subcu utilized while she was here Stable for SNF, revascularization next week, ongoing supportive care. Otherwise as above Resident Activity Tracking Resident Involvement: Resident Care Provided Care Provided: Adult Hospital Medicine
[2020-11-23] MEDS: INSULIN ASPART 100 UNITS/ML 3 ML PEN SC SCH ×2 (08:30→12:24)
[2020-11-23 08:40] LABS: Basophils # (auto) 0.01 K/uL (0-0.2); Basophils % (auto) 0.1 %; Eosinophils # (auto) 0.44 K/uL (0-0.5); Hematocrit (blood only) 42.4 % (37-47); Hemoglobin 14.3 g/dL (12.0-16.0); Immature Granulocytes # (auto) 0.03 K/uL (0.00-0.02); Immature Granulocytes % (auto) 0.4 %; Lymphocytes # (auto) 1.37 K/uL (1.2-3.4); Lymphocytes % (auto) 18.6 %; Mean Corpuscular Hemoglobin 31.2 pg (25-34); Mean Corpuscular Hgb Conc 33.7 g/dL (32-36); Mean Corpuscular Volume 92.6 fL (80-100); Mean Platelet Volume 10.3 fL (7.4-10.4); Monocytes # (auto) 0.48 K/uL (0.11-0.59); Monocytes % (auto) 6.5 %; Neutrophils # (auto) 5.03 K/uL (1.4-6.5); Neutrophils % (auto) 68.4 %; Platelet Count 322 K/uL (130-400); RDW Coefficient of Variation 14.5 % (11.5-14.5); Red Blood Count 4.58 M/uL (4.2-5.4); White Blood Count 7.36 K/uL (4.8-10.8)
[2020-11-23] MEDS: PENTOXIFYLLINE 400MG EXT REL TAB PO SCH ×2 (08:54→14:24)
[2020-11-23] MEDS: VENLAFAXINE HCL XR 75 MG CAPXR PO SCH (08:54)
[2020-11-23] MEDS: OXYBUTYNIN CHLORIDE 5 MG TAB PO SCH (08:54)
[2020-11-23] MEDS: AMOXICILLIN/CLAVULANATE 875 MG TAB PO SCH (08:55)
[2020-11-23] MEDS: DOXYCYCLINE HYCLATE 100 MG CAP PO SCH (08:55)
[2020-11-23] MEDS: HEPARIN SOD 5,000 UNIT/0.5 ML VIAL SQ SCH (08:55)
[2020-11-23] MEDS: FLUTICASONE/VILANTEROL 100/25MCG 14 PUFFS/INHALER INH SCH (08:55)
[2020-11-23] MEDS: ASPIRIN 81 MG ECTAB PO SCH (08:55)
[2020-11-23] MEDS: POLYETHYLENE (MIRALAX) 17 GM PACK PO SCH (08:55)
[2020-11-23] MEDS: HYDROCORTISONE 1% CRM 30 GM TUBE EXT SCH (08:56)
[2020-11-23] MEDS: ATORVASTATIN 40 MG TAB PO SCH (08:56)
[2020-11-23] MEDS: ACETAMINOPHEN 500 MG TAB PO SCH ×2 (08:56→14:24)
[2020-11-23] MEDS: NICOTINE 14 MG/24 HR PATCH TD SCH (08:56)
[2020-11-23 08:59] LABS: BUN Creatinine Ratio 18.5 (10-20); Calcium 9.5 mg/dl (8.5-10.1); Creatinine Clr Calc Pharmacy 55.6 ml/min; Est GFR (African American) 83.1; Est GFR (Non-African American) 71.7; Potassium 3.9 mmol/L (3.5-5.1)
[2020-11-23] MEDS: HYDROmorphone INJ 0.5 MG/0.5 ML SYR IV PRN (09:00)
--- NOTE | 2020-11-23 18:42 | Billing Data ---
Date of Service November 23, 2020 Coding Level of Care Code D/C Day Management <30 mins
--- NOTE | 2020-11-23 21:06 | Cardiology Progress Note ---
Date of Service November 23, 2020 Assessment & Plan (1) PAD (peripheral artery disease): 2. Nonhealing left lower extremity ulcerations/cellulitis 3. Suspected chronic venous insufficiency 4. Type 2 diabetes 5. Left carotid artery, subclavian artery disease 6. Resolved KM 7. Altered mental status--improving Plan is for patient to be discharged to SNF today. Plan for endovascular intervention to left lower extremity next week. Tentatively was scheduled for 12/01. Continue aspirin, statin Long-term will also need assessment for superficial venous disease which can be performed as outpatient. Admission and Anticipated Discharge Date Admission Date: November 13, 2020 Subjective Feeling well today. Denies significant pain at right [employer] access site or in left lower extremity. Telemetry reviewedno events Review of Systems Review of Systems: All systems reviewed & are unremarkable except as noted in HPI & below Physical Exam Physical Exam: General: comfortable Eyes: Sclerae anicteric Lungs: Clear Cardiac: Regular rate Abdomen: Soft Extremities/Vascular: -- RT [employer] no hematoma, 1+ pulse. No ulceration on right distal stump --Left lower extremity dressed. Normal capillary refill. Scaling involving distal leg below bandage. Results & Data ([facility]) Vital Signs (Past 12 Hours) Vital Signs Temp Pulse Pulse Resp BP BP Pulse Ox 11/23/20 15:29 98.1 F 70 73 20 134/63 96 11/23/20 11:33 98.1 F 73 20 145/75 H 96 PG Care Time/CCT Total # of Minutes Spent Total Time Spent with Patient: Total time spent is greater than 50% in coordination of care (as documented) at patient's floor/unit and/or counseling patient: Coding Level of Care Code 69625 Subseq Hosp Care Lvl 2 Diagnoses PAD (peripheral artery disease) I73.9
== END 2020-11-23 15:54 | DRG 300 ==
LOC: ED 14:27 → 3N 20:43 → SUATTDRO 20:43 → 3N 22:18 → 2S 11-22 17:00
PROC: CLB.AEB (2020-11-22 15:00)

== ENCOUNTER 2020-12-02 16:28 | Observation (INO) ==
[2020-12-02] MEDS ORDERED: ONDANSETRON INJ 2 MG/ML 2 ML VIAL IV STA (16:53)
--- NOTE | 2020-12-02 16:57 | Emergency Department Note ---
Impression & Plan Weakness, Cellulitis, Acute dehydration, Leukocytosis ED Provider Note NAME: GARRETT PRIETO AGE: 80 SEX: F : 1940 ARRIVES VIA: Ambulance INFORMANT: [Patient][ems] ED PROVIDER(S): [Dmitry Wall MD] CHIEF COMPLAINT: Vomiting HISTORY OF PRESENT ILLNESS: The patient is a 80-year-old female presents with several days of vomiting and diarrhea. The patient was discharged from [facility] yesterday. The patient also had angioplasty performed on her lower extremities yesterday. She had work done on the left and right side. She has a history of peripheral artery disease and also has a history of a right below the knee amputation. The patient feels thirsty. She has noticed some shortness of breath. She has not really noticed any abdominal pain or distention. She has not had fever. There has been no cough or congestion. She denies any urinary complaints although, her urine output has decreased. REVIEW OF SYSTEMS: See HPI for pertinent positives and negatives. A total of ten systems were reviewed and were otherwise negative. PMHx/PSHx: See Below SOCIAL HISTORY: See Below. PHYSICAL EXAM: GENERAL: Patient is in no acute distress. HEENT: No acute trauma, normocephalic atraumatic, mucous membranes dry, no nasal congestion, no scleral icterus. NECK: No stridor, no adenopathy, no meningismus, trachea is midline. LUNGS: Clear to auscultation bilaterally when listening anterior, no wheeze, no rhonchi, breath sounds equal. HEART: Without murmurs gallops or rubs, regular rate and rhythm. ABDOMEN: Soft, nontender, bowel sounds positive, no hernias, no peritonitis. EXTREMITIES: No cyanosis or edema. There is a right below the knee amputation. The left lower extremity is warm to touch. There is an area of erythema to the posterior aspect of the distal left tib-fib, some warmth is present. There is scaling of her skin to her lower left extremity. She is tender to palpate anywhere around the left lower leg and foot. NEUROLOGIC: Oriented x 3, no acute motor or sensory deficits, no focal weakness. SKIN: No rash, no jaundice, no diaphoresis. DIFFERENTIAL DIAGNOSIS: Infection, dehydration, metabolic abnormality, hypo/hyperglycemia, bowel obstruction, ileus, UTI, electrolyte disturbance, anemia, hypoxia, cardiac sources, intracerebral event, toxicologic issues, stroke, TIA, as well as other pathologies. EMERGENCY DEPARTMENT COURSE/PROCEDURES: ECG: Indication was weakness. The ECG shows a normal sinus rhythm with a rate of 66. The QTc is 496. There is some T wave flattening across the anterior and lateral leads. There is a right bundle branch block. There is no ST elevation, no PVCs. Compared to an ECG from 13 November 2020, there is less artifact today. Continuous Cardiac Monitoring: An order was placed for continuous cardiac monitoring. The monitor shows a rate of 68 with normal sinus rhythm. MEDICAL DECISION MAKING: There is a moderate leukocytosis which would be consistent with infection. No concerning anemia. There is a normal platelet count. There is an elevation to the creatinine consistent with some dehydration. No significant electrolyte abnormality in need of emergent correction. No concerning liver enzyme elevation. The patient appears to be in a euthyroid state. ECG shows a sinus rhythm, there was no acute ischemic change. Chest film does not show pneumonia or CHF. Urinalysis does not show infection. Covid and influenza testing were negative. Abdominal and pelvis CT does not show any obstruction. Renal insufficiency/injury was queried. No acute surgical process by CT scan. On exam, the patient did appear to have a left lower extremity cellulitis. She appeared dehydrated clinically. The patient received IV saline, 1 L in total. She was given IV Zosyn as empiric antibiotic coverage. She received IV Zofran for nausea. The patient presents with weakness, she is dehydrated. She has had vomiting and diarrhea which I suspect is responsible for the dehydration. She has a left leg cellulitis. She has history of severe peripheral vascular disease. The patient is in no condition for discharge. She requires care in the hospital. Her primary care provider called to our case sealer and expressed concern about her safety at home in her current condition. I spoke with case management, I talked with the patient and her son. The on- call hospitalist was consulted. Past Med/Surg History Medical History Carotid stenosis, asymptomatic Cellulitis of both lower extremities Hx of right BKA Hypokalemia PAD (peripheral artery disease) Social History Smoking Status: Former smoker Tobacco Type: Cigarettes Second Hand Exposure: No; Hx Alcohol Use: No Hx Substance Use: No Preferred Language: Swedish Communication Ability: Effective Business Process Coordinator Required: No Beliefs That Will Affect Care: None Current Living Situation: Group Home Feels Safe at Home: Yes Assistive Devices: Prosthesis Allergies Allergies Allergy/AdvReac Type Severity Reaction Status Date / Time hydrogen peroxide Allergy Unknown ALLERGY Verified 12/02/20 18:13 REPORTED "PEROXIDE"-red and itchy lorazepam [From Ativan] AdvReac Mild flushed BP Verified 12/02/20 18:13 elevated , COMPLAINTS OF SKIN BURNING Home Meds Home Medications Medication Instructions Recorded Confirmed fluticasone propion-salmeterol 2 inh INHALATION DAILY 11/13/20 12/02/20 [Advair Diskus] furosemide 40 mg PO BID 11/13/20 12/02/20 glipizide 5 mg PO DAILY 11/13/20 12/02/20 meloxicam 15 mg PO DAILY 11/13/20 12/02/20 oxybutynin chloride 5 mg PO BID 11/13/20 12/02/20 venlafaxine 75 mg PO DAILY 11/13/20 12/02/20 bisacodyl [Dulcolax (bisacodyl)] 10 mg IA DAILY PRN 12/01/20 12/02/20 ondansetron HCl [Zofran] 4 mg PO Q6H PRN 12/01/20 12/02/20 attapulgite [Kaopectate 600 mg PO DIRECTED PRN 12/02/20 12/02/20 (attapulgite)] bismuth subsalicylate 524 mg PO QID PRN 12/02/20 12/02/20 [Pepto-Bismol] Previous Rx's Medication Instructions Recorded amoxicillin-pot clavulanate 1 tab PO BIDM 10 Days #20 tab 11/23/20 [Augmentin] aspirin [Aspirin Low Dose] 81 mg PO DAILY #30 tab 11/23/20 atorvastatin 40 mg PO QAM #30 tab 11/23/20 doxycycline hyclate 100 mg PO BID #20 cap 11/23/20 clopidogrel 75 mg PO DAILY #30 tab 12/01/20 Results & Data (ED) Vital Signs Vital Signs - 24 hr 12/02/20 17:04 12/02/20 17:19 12/02/20 18:44 Temperature 36.7 C Temperature Source Oral Pulse Rate 68 Pulse Rate [Right Finger] 69 Respiratory Rate 20 18 Respiratory Effort / Characteristics Non-Labored Spontaneous Non-Labored Spontaneous Respiratory Depth Normal Normal Blood Pressure 143/70 H Blood Pressure [Left Arm] 140/71 Blood Pressure Mean 94 Blood Pressure Mean [Left Arm] 94 Blood Pressure Position Lying Blood Pressure Position [Left Arm] Lying Pulse Oximetry 98 98 94 Oxygen Delivery Method Room Air Room Air Room Air Sepsis Recent Fever Within 48 Hours No Sepsis New/Unexplained Change in Mental Status N/A Sepsis Action Taken by Nursing No Action Required Home Medications Current Medication List: was personally reviewed by me Laboratory Data Attestation: I reviewed the patient's lab results. Result diagrams: 12/02/20 17:21 12/02/20 17:21 Lab Results 12/02/20 12/02/20 12/02/20 Range/Units 16:44 17:21 17:21 WBC 14.64 H (4.8-10.8) K/uL RBC 5.03 (4.2-5.4) M/uL Hgb 15.7 (12.0-16.0) g/dL Hct 46.2 (37-47) % MCV 91.8 (80-100) fL MCH 31.2 (25-34) pg MCHC 34.0 (32-36) g/dL RDW Std Deviation 49.1 H (36.4-46.3) fL RDW Coeff of Isiah 14.6 H (11.5-14.5) % Plt Count 400 (130-400) K/uL MPV 11.9 H (7.4-10.4) fL Immature Gran % (Auto) 0.3 % Neut % (Auto) 75.1 % Lymph % (Auto) 14.1 % Baker % (Auto) 8.6 % Eos % (Auto) 1.8 % Baso % (Auto) 0.1 % Neut # (Auto) 10.99 H (1.4-6.5) K/uL Lymph # (Auto) 2.06 (1.2-3.4) K/uL Baker # (Auto) 1.26 H (0.11-0.59) K/uL Eos # (Auto) 0.27 (0-0.5) K/uL Baso # (Auto) 0.02 (0-0.2) K/uL Immature Gran # (Auto) 0.04 H (0.00-0.02) K/uL Sodium 140 (136-145) mmol/L Potassium 3.4 L (3.5-5.1) mmol/L Chloride 104 (98-107) mmol/L Carbon Dioxide 29 (21-32) mmol/L Anion Gap 7.0 (3-11) BUN 53 H (7-18) mg/dl Creatinine 1.39 H (0.6-1.2) mg/dl Est Cr Clr Drug Dosing 29.8 ml/min Est GFR ( Amer) 42.0 Est GFR (Non-Af Amer) 36.2 BUN/Creatinine Ratio 38.4 H (10-20) Glucose 122 H (70-99) mg/dl POC Glucose 163 H (70-99) mg/dl Calcium 9.7 (8.5-10.1) mg/dl Phosphorus 3.3 (2.5-4.9) mg/dl Magnesium 2.4 (1.8-2.4) mg/dl Total Bilirubin 0.6 (0.2-1) mg/dl AST 21 (15-37) U/L ALT 21 (12-78) U/L Alkaline Phosphatase 109 (45-117) U/L Total Creatine Kinase 176 (26-192) U/L Troponin I 0.028 (0-0.045) ng/ml Total Protein 7.0 (6.4-8.2) gm/dl Albumin 3.3 L (3.4-5.0) gm/dl Globulin 3.7 (2.5-4.0) gm/dl Albumin/Globulin Ratio 0.9 (0.9-2) TSH 0.666 (0.300-4.500) uIu/ml Specimen Hemolysis Urine Color Urine Appearance (Clear) Urine pH (4.5-7.5) Ur Specific Brandon (1.000-1.030) Urine Protein (Negative) Urine Glucose (UA) (Negative) Urine Ketones (Negative) Urine Blood (Negative) Urine Nitrite (Negative) Urine Bilirubin (Negative) Urine Urobilinogen (Negative) Ur Leukocyte Esterase (Negative) COVID-19 Eval Order SARS-CoV-2 (PCR) (Negative) Influenza Type A (PCR) (Neg) Influenza Type B (PCR) (Neg) RSV (RT-PCR) (Neg) 12/02/20 12/02/20 12/02/20 Range/Units 17:21 17:21 17:38 WBC (4.8-10.8) K/uL RBC (4.2-5.4) M/uL Hgb (12.0-16.0) g/dL Hct (37-47) % MCV (80-100) fL MCH (25-34) pg MCHC (32-36) g/dL RDW Std Deviation (36.4-46.3) fL RDW Coeff of Isiah (11.5-14.5) % Plt Count (130-400) K/uL MPV (7.4-10.4) fL Immature Gran % (Auto) % Neut % (Auto) % Lymph % (Auto) % Baker % (Auto) % Eos % (Auto) % Baso % (Auto) % Neut # (Auto) (1.4-6.5) K/uL Lymph # (Auto) (1.2-3.4) K/uL Baker # (Auto) (0.11-0.59) K/uL Eos # (Auto) (0-0.5) K/uL Baso # (Auto) (0-0.2) K/uL Immature Gran # (Auto) (0.00-0.02) K/uL Sodium (136-145) mmol/L Potassium (3.5-5.1) mmol/L Chloride (98-107) mmol/L Carbon Dioxide (21-32) mmol/L Anion Gap (3-11) BUN (7-18) mg/dl Creatinine (0.6-1.2) mg/dl Est Cr Clr Drug Dosing ml/min Est GFR ( Amer) Est GFR (Non-Af Amer) BUN/Creatinine Ratio (10-20) Glucose (70-99) mg/dl POC Glucose (70-99) mg/dl Calcium (8.5-10.1) mg/dl Phosphorus (2.5-4.9) mg/dl Magnesium (1.8-2.4) mg/dl Total Bilirubin (0.2-1) mg/dl AST (15-37) U/L ALT (12-78) U/L Alkaline Phosphatase (45-117) U/L Total Creatine Kinase (26-192) U/L Troponin I (0-0.045) ng/ml Total Protein (6.4-8.2) gm/dl Albumin (3.4-5.0) gm/dl Globulin (2.5-4.0) gm/dl Albumin/Globulin Ratio (0.9-2) TSH (0.300-4.500) uIu/ml Specimen Hemolysis Urine Color Yellow Urine Appearance Clear (Clear) Urine pH 5.0 (4.5-7.5) Ur Specific Brandon 1.030 (1.000-1.030) Urine Protein Negative (Negative) Urine Glucose (UA) Negative (Negative) Urine Ketones Negative (Negative) Urine Blood Negative (Negative) Urine Nitrite Negative (Negative) Urine Bilirubin Negative (Negative) Urine Urobilinogen Negative (Negative) Ur Leukocyte Esterase Negative (Negative) COVID-19 Eval Order [facility]Rsv at [facility] SARS-CoV-2 (PCR) NEGATIVE (Negative) Influenza Type A (PCR) Negative (Neg) Influenza Type B (PCR) Negative (Neg) RSV (RT-PCR) Negative (Neg) Administered Medications Discontinued Medications Sodium Chloride (Nss) 500 mls @ 999 mls/hr IV .Q31M JOSEP Stop: 12/02/20 17:30 Last Infusion: 12/02/20 18:14 Dose: 0 mls/hr Documented by: [id number] Admin: 12/02/20 17:37 Dose: 999 mls/hr Documented by: [id number] Sodium Chloride (Nss 1000ml) 500 mls @ 999 mls/hr IV .Q31M ONE Stop: 12/02/20 18:54 Last Admin: 12/02/20 18:37 Dose: 999 mls/hr Documented by: [id number] Ondansetron HCl (Ondansetron Inj 2 Mg/Ml 2 Ml Vial) 4 mg IV NOW STA Stop: 12/02/20 16:54 Last Admin: 12/02/20 17:41 Dose: 4 mg Documented by: [id number] Imaging Data Radiologist's Impression: Abdomen/Pelvis CT 12/02/20 16:53 CT SCAN OF THE ABDOMEN AND PELVIS WITHOUT IV CONTRAST CLINICAL HISTORY: Vomiting. Generalized abdominal pain. COMPARISON STUDY: Abdominal ultrasound dated 11/13/2008. Chest CT dated 06/03/2013. TECHNIQUE: CT scan of the abdomen and pelvis is performed from the lung bases to the proximal femora. Images are reviewed in the axial, sagittal, and coronal planes. IV contrast was not administered for this examination. Note that the examination was performed in suboptimal fashion without oral and IV contrast. The Examination is also degraded by motion artifact. A dose lowering technique was utilized adhering to the principles of ALARA. CT DOSE: 317.74 mGy.cm FINDINGS: Lung bases: The heart is normal in size and without pericardial effusion. There are coronary artery calcifications. A small hiatal hernia is noted. A 7 mm right lower lobe pulmonary nodule is seen on image #2. A 10 mm left lower lobe pulmonary nodule is seen on image #16. There is bibasilar scarring/atelectasis. No airspace consolidation or large pleural effusion is identified. Liver: The unenhanced liver is normal in size and heterogeneous in attenuation. Focal fatty infiltration is noted adjacent to the falciform ligament. There is no intrahepatic biliary ductal dilatation. There are 2 indeterminant hypodense hepatic lesions seen on image #39 measuring 1.4 cm and #117 measuring 1.8 cm. Gallbladder: Surgically absent noting clips in the gallbladder fossa. Spleen: Normal in size and attenuation. Pancreas: The unenhanced pancreas is moderately atrophic and grossly unremarkable. Adrenal glands: Unremarkable. Kidneys: There is nonspecific bilateral perinephric stranding. The unenhanced kidneys demonstrate mild cortical atrophy and are without hydronephrosis. There is retained cortical contrast in both kidneys suggesting medical renal disease. There is minimal contrast within the collecting system which degrades assessment for renal calculi. Bilateral cysts measure up to 2.6 cm. Additional sub centimeter cortical hypodensities also likely represent cysts but are too small for definitive characterization. Abdominal vasculature: There is advanced atherosclerotic calcification and ectasia of the abdominal aorta. There is a 3.2 x 3.0 cm (AP x transverse) aneurysm of the distal abdominal aorta. There are bilateral iliac artery stents. Postoperative change is noted in the right groin and a stent is partially visualized in the right femoral artery. Bowel: No bowel obstruction is identified. There is residual enteric contrast throughout the colon. There are scattered colonic diverticula without CT evidence of acute diverticulitis. A duodenal diverticulum is noted. The appendix is well-visualized and normal. Peritoneum: There is no intraperitoneal free air or abdominal ascites. There is a fat-containing umbilical hernia. Lymphadenopathy: None. Pelvic viscera: The bladder is filled with excreted IV contrast, and is otherwise normal as visualized. Uterus and adnexa are normal as imaged. Skeletal structures: The skeletal structures are heterogeneously osteopenic. There is advanced lumbosacral spondylosis and mild scoliosis. There is a minimal and age indeterminant superior endplate compression deformity of T10. No lytic or blastic lesions are seen. IMPRESSION: 1. Suboptimal examination without oral and IV contrast. There is also motion artifact. 2. There is retained cortical contrast within both kidneys, as well as excreted IV contrast filling the bladder. There is also bilateral nonspecific perinephric stranding. These findings suggest acute renal injury. Correlate with clinical findings, urinalysis, and serum creatinine levels. 3. There are 2 pulmonary nodules at the lung bases measuring up to 10 mm. These are pathologically indeterminant, but new from a [address] Follow-up with a nonemergent dedicated chest CT is recommended for dedicated assessment of the thorax. 4. There are 2 low-attenuation hepatic lesions which measure up to 1.8 cm. These are pathologically indeterminant, but also appear new from the [address] Metastatic lesions are not excluded. 5. There is a 3.2 x 3.0 cm infrarenal abdominal aortic aneurysm. 6. Additional findings as above. ACT 112: Negative or not required by law. Electronically signed by: Dmitry Cherry M.D. 12/02/2020 6:54 PM Chest X-Ray 12/02/20 16:53 SINGLE VIEW CHEST CLINICAL HISTORY: Generalized weakness. Vomiting. Diarrhea. FINDINGS: An AP, portable, upright chest radiograph is compared to study dated 11/13/2020 and correlated with chest CT dated 06/03/2013. The cardiomediastinal silhouette is unremarkable noting atherosclerotic calcification of the thoracic aorta. Emphysematous change and chronic interstitial thickening is similar to previous. There is chronic elevation of the right hemidiaphragm with bibasilar scarring/atelectasis. No airspace consolidation or large pleural effusion is identified. No pneumothorax is seen. The skeletal structures are osteopenic. The bony thorax is grossly intact. IMPRESSION: Emphysematous change with no active disease in the chest. ACT 112: Negative or not required by law. Electronically signed by: Dmitry Cherry M.D. 12/02/2020 5:11 PM Discharge Plan Visit Data Chief Complaint: Vomiting Stated Complaint: VOMITING, WEAKNESS ED Provider: Dmitry Wall Discharge Problem: Weakness, Cellulitis, Acute dehydration, Leukocytosis Patient Disposition: Admitted As Inpatient Condition: Fair Forms Stand Alone Forms: [facility] Prescriptions Prescriptions: No Action ondansetron HCl [Zofran] 4 mg Tablet 4 mg PO Q6H PRN (Reason: Nausea) RF: 0 bisacodyl [Dulcolax (bisacodyl)] 10 mg Suppository 10 mg IA DAILY PRN (Reason: Constipation) RF: 0 clopidogrel 75 mg tablet 75 mg PO DAILY Qty: 30 RF: 1 furosemide 40 mg tablet 40 mg PO BID RF: 0 glipizide 5 mg tablet 5 mg PO DAILY RF: 0 oxybutynin chloride 5 mg tablet 5 mg PO BID RF: 0 meloxicam 15 mg tablet 15 mg PO DAILY RF: 0 venlafaxine 75 mg capsule,extended release 24hr 75 mg PO DAILY RF: 0 fluticasone propion-salmeterol [Advair Diskus] 250-50 mcg/dose blister with device 2 inh INHALATION DAILY RF: 0 amoxicillin-pot clavulanate [Augmentin] 875-125 mg Tablet 1 tab PO BIDM 10 Days Qty: 20 RF: 0 doxycycline hyclate 100 mg Capsule 100 mg PO BID Qty: 20 RF: 0 atorvastatin 40 mg Tablet 40 mg PO QAM Qty: 30 RF: 0 aspirin [Aspirin Low Dose] 81 mg tablet,delayed release (DR/EC) 81 mg PO DAILY Qty: 30 RF: 0 Kaopectate (attapulgite) 600 mg/15 mL Suspension 600 mg PO DIRECTED PRN (Reason: gastric upset) RF: 0 bismuth subsalicylate [Pepto-Bismol] 262 mg/15 mL Suspension 524 mg PO QID PRN (Reason: gastric upset) RF: 0 Referrals Referrals: Og Baca MD [Primary Care Provider] - Discharge Problem: Cellulitis Qualifiers: Site of cellulitis: extremity Site of cellulitis of extremity: lower extremity Laterality: left Qualified Code(s): L03.116 - Cellulitis of left lower limb Leukocytosis Qualifiers: Leukocytosis type: unspecified Qualified Code(s): D72.829 - Elevated white blood cell count, unspecified
[2020-12-02] MEDS ORDERED: SODIUM CHLORIDE 0.9% 500 ML IV SCH (17:00)
--- NOTE | 2020-12-02 17:12 | XRay Report ---
SINGLE VIEW CHEST CLINICAL HISTORY: Generalized weakness. Vomiting. Diarrhea. FINDINGS: An AP, portable, upright chest radiograph is compared to study dated 11/13/2020 and correlate d with chest CT dated 06/03/2013. The cardiomediastinal silhouette is unremarkable noting atheroscler otic calcification of the thoracic aorta. Emphysematous change and chronic interstitial thickening is similar to previous. There is chronic elevation of the right hemidiaphragm with bibasilar scarring/a telectasis. No airspace consolidation or large pleural effusion is identified. No pneumothorax is see n. The skeletal structures are osteopenic. The bony thorax is grossly intact. IMPRESSION: Emphysematous change with no active disease in the chest. ACT 112: Negative or not required by law. Electronically signed by: Dmitry Cherry M.D. 12/02/2020 5:11 PM
[2020-12-02 17:49] LABS: Basophils # (auto) 0.02 K/uL (0-0.2); Basophils % (auto) 0.1 %; Eosinophils # (auto) 0.27 K/uL (0-0.5); Eosinophils % (auto) 1.8 %; Hematocrit (blood only) 46.2 % (37-47); Hemoglobin 15.7 g/dL (12.0-16.0); Immature Granulocytes # (auto) 0.04 K/uL (0.00-0.02); Immature Granulocytes % (auto) 0.3 %; Lymphocytes # (auto) 2.06 K/uL (1.2-3.4); Lymphocytes % (auto) 14.1 %; Mean Corpuscular Hemoglobin 31.2 pg (25-34); Mean Corpuscular Volume 91.8 fL (80-100); Mean Platelet Volume 11.9 fL (7.4-10.4); Monocytes # (auto) 1.26 K/uL (0.11-0.59); Monocytes % (auto) 8.6 %; Neutrophils # (auto) 10.99 K/uL (1.4-6.5); Neutrophils % (auto) 75.1 %; Platelet Count 400 K/uL (130-400); RDW Coefficient of Variation 14.6 % (11.5-14.5); RDW Standard Deviation 49.1 fL (36.4-46.3); Red Blood Count 5.03 M/uL (4.2-5.4); White Blood Count 14.64 K/uL (4.8-10.8)
[2020-12-02 17:55] LABS: Appearance Urine Clear (Clear); Bilirubin Urine Negative (Negative); Blood Urine Negative (Negative); Color Urine Yellow; Glucose Urine UA Negative (Negative); Ketones Urine Negative (Negative); Leukocyte Esterase Urine Negative (Negative); Nitrite Urine Negative (Negative); Protein Urine Negative (Negative); Urobilinogen Urine Negative (Negative)
[2020-12-02 18:11] LABS: Alanine Aminotransferase 21 U/L (12-78); Albumin Level 3.3 gm/dl (3.4-5.0); Aspartate Aminotransferase 21 U/L (15-37); BUN Creatinine Ratio 38.4 (10-20); Blood Urea Nitrogen 53 mg/dl (7-18); Calcium 9.7 mg/dl (8.5-10.1); Carbon Dioxide 29 mmol/L (21-32); Chloride 104 mmol/L (98-107); Creatinine Clr Calc Pharmacy 29.8 ml/min; Est GFR (Non-African American) 36.2; Glucose 122 mg/dl (70-99); Magnesium 2.4 mg/dl (1.8-2.4); Potassium 3.4 mmol/L (3.5-5.1); Sodium 140 mmol/L (136-145)
[2020-12-02 18:24] LABS: Albumin Globulin Ratio 0.9 (0.9-2); Alkaline Phosphatase 109 U/L (45-117); Bilirubin,Total 0.6 mg/dl (0.2-1); Creatine Kinase 176 U/L (26-192); Globulin 3.7 gm/dl (2.5-4.0); Phosphorus 3.3 mg/dl (2.5-4.9); Thyroid Stimulating Hormone 0.666 uIu/ml (0.300-4.500); Troponin I 0.028 ng/ml (0-0.045)
[2020-12-02] MEDS ORDERED: SODIUM CHLORIDE 0.9% 1000ML 500 ML IV ONE (18:24)
[2020-12-02 18:50] LABS: Influenza A virus by PCR Negative (Neg); Influenza B virus by PCR Negative (Neg); RSV by PCR Negative (Neg); SARS CoV2 RNA(COVID-19) InHosp NEGATIVE (Negative)
--- NOTE | 2020-12-02 18:55 | CT Scan Report ---
CT SCAN OF THE ABDOMEN AND PELVIS WITHOUT IV CONTRAST CLINICAL HISTORY: Vomiting. Generalized abdominal pain. COMPARISON STUDY: Abdominal ultrasound dated 11/13/2008. Chest CT dated 06/03/2013. TECHNIQUE: CT scan of the abdomen and pelvis is performed from the lung bases to the proximal femora. Images are reviewed in the axial, sagittal, and coronal planes. IV contrast was not administered for this examination. Note that the examination was performed in suboptimal fashion without oral and IV contrast. The Examination is also degraded by motion artifact. A dose lowering technique was utilized adhering to the principles of ALARA. CT DOSE: 317.74 mGy.cm FINDINGS: Lung bases: The heart is normal in size and without pericardial effusion. There are coronary artery c alcifications. A small hiatal hernia is noted. A 7 mm right lower lobe pulmonary nodule is seen on im age #2. A 10 mm left lower lobe pulmonary nodule is seen on image #16. There is bibasilar scarring/at electasis. No airspace consolidation or large pleural effusion is identified. Liver: The unenhanced liver is normal in size and heterogeneous in attenuation. Focal fatty infiltra tion is noted adjacent to the falciform ligament. There is no intrahepatic biliary ductal dilatation. There are 2 indeterminant hypodense hepatic lesions seen on image #39 measuring 1.4 cm and #117 ankita uring 1.8 cm. Gallbladder: Surgically absent noting clips in the gallbladder fossa. Spleen: Normal in size and attenuation. Pancreas: The unenhanced pancreas is moderately atrophic and grossly unremarkable. Adrenal glands: Unremarkable. Kidneys: There is nonspecific bilateral perinephric stranding. The unenhanced kidneys demonstrate mil d cortical atrophy and are without hydronephrosis. There is retained cortical contrast in both kidney s suggesting medical renal disease. There is minimal contrast within the collecting system which degr ades assessment for renal calculi. Bilateral cysts measure up to 2.6 cm. Additional subcentimeter cor tical hypodensities also likely represent cysts but are too small for definitive characterization. Abdominal vasculature: There is advanced atherosclerotic calcification and ectasia of the abdominal a lizzie. There is a 3.2 x 3.0 cm (AP x transverse) aneurysm of the distal abdominal aorta. There are agatha ateral iliac artery stents. Postoperative change is noted in the right groin and a stent is partially visualized in the right femoral artery. Bowel: No bowel obstruction is identified. There is residual enteric contrast throughout the colon. T here are scattered colonic diverticula without CT evidence of acute diverticulitis. A duodenal divert iculum is noted. The appendix is well-visualized and normal. Peritoneum: There is no intraperitoneal free air or abdominal ascites. There is a fat-containing umbi lical hernia. Lymphadenopathy: None. Pelvic viscera: The bladder is filled with excreted IV contrast, and is otherwise normal as visualize d. Uterus and adnexa are normal as imaged. Skeletal structures: The skeletal structures are heterogeneously osteopenic. There is advanced lumbos acral spondylosis and mild scoliosis. There is a minimal and age indeterminant superior endplate comp ression deformity of T10. No lytic or blastic lesions are seen. IMPRESSION: 1. Suboptimal examination without oral and IV contrast. There is also motion artifact. 2. There is retained cortical contrast within both kidneys, as well as excreted IV contrast filling t he bladder. There is also bilateral nonspecific perinephric stranding. These findings suggest acute r enal injury. Correlate with clinical findings, urinalysis, and serum creatinine levels. 3. There are 2 pulmonary nodules at the lung bases measuring up to 10 mm. These are pathologically in determinant, but new from a [address] Follow-up with a nonemergent dedicated chest CT is recomme nded for dedicated assessment of the thorax. 4. There are 2 low-attenuation hepatic lesions which measure up to 1.8 cm. These are pathologically i ndeterminant, but also appear new from the [address] Metastatic lesions are not excluded. 5. There is a 3.2 x 3.0 cm infrarenal abdominal aortic aneurysm. 6. Additional findings as above. ACT 112: Negative or not required by law. Electronically signed by: Dmitry Cherry M.D. 12/02/2020 6:54 PM
[2020-12-02] MEDS ORDERED: PIPERACILL/TAZOBAC CONSULT ACTIVE PRN (19:02)
[2020-12-02] MEDS ORDERED: PIPERACILLIN/TAZOBACTAM 4.5 GM/120 ML BAG IV ONE (19:02)
--- NOTE | 2020-12-02 20:05 | History & Physical Report ---
Date of Service December 02, 2020 Assessment & Plan (1) Acute vomiting: Patient with vomiting following eating and increase in dairy intake - Patient unsure if this was onset with her oral antibiotics- either way changed to Zosyn - No pain and normal lactate- and nontender on exam - bland diet to clears - lipase 65, rest of liver and biliary labs normal - Famotidine IV Vomiting without pain, however has been on Meloxicam and ASA, her H&H are stable mildly contracted- if persists consider GI consult for possible EGD (2) Diarrhea: Appears to be going on more than her vomiting - as above - she 1-3 episodes per day over the past 2 days. - She does not know color or consistency or in relation to oral intake - She feels it is more watery than any form (3) KM (acute kidney injury): Likely related to acute free water loss with vomiting and diarrhea- KM stage III- contrast was just yesterday, but interestingly still has contrast in her kidneys - patient received 2 liters of 0.9% saline prior to evaluation - LR at 80 ml- consider isotonic bicarbonate if diarrhea persists or if KM worsens - Hold diuretics - no protein or blood in UA - FE/UREA pending (4) Leukocytosis: Mild elevation with NLR 5:1 - qsofa- 0, SIRS- 0 - CT scan of abdomen with slight right lower lobe pneumonitis- Zosyn will cover (5) Hx of right BKA: No acute needs - PT/OT (6) PAD (peripheral artery disease): Continue ASA/Plavix No acute needs (7) Cellulitis: Chronic - no overt acute worsening signs, is not warm and no drainage - Continue Zosyn until blood cultures back - PCT, ESR, CRP ordered (8) COPD (chronic obstructive pulmonary disease): Previous 1-1/2 pack per day smoker for many years up until recent - Continue inhalers- no PFT for review recently- and appears to be well controlled without any exacerbations - SPO2 goal 88-92% no acute needs (9) Chronic pain: On review from previous admission, patient was noted to be on Tramadol for her LLE pain- and was on Tramadol for many year- appears to be stopped and transitioned to meloxicam - Will hold the NSAIDS/COX2 with her KM and as well as her being on DAPT therapy (10) Pulmonary lesion: Found to have 2 pulmonary nodules at the lung base measuring up to 10mm - new from 2013 film as well as 2 low-attenuation hepatic lesions new from 2013 image. -Will check CT chest -Consider Pulmonary consutation Present on Admission?: Yes History of Present Illness Chief Complaint: vomitting, diarrhea Primary Care Provider: Og Baca MD 80 YOF with past medical history of COPD, DMII, PAD, with Right BKA, chronic left lower extremity non healing ulcerations. She was recently discharged from [facility] on [id number] following an ulceration to her distal left cath and left lateral ulceration and cellulitis. She was treated with daptomycin and Zosyn recovered and went to [facility] for rehab on Augmentin and Doxycycline and had her revascularization scheduled. She was discharged from [facility] yesterday as well as having her endovascular procedure done yesterday. She had angioplasty of left ostial to distal SFA with 2 drug-eluting balloons, stenting to left common iliac with self-expanding stent, and stent to right distal common iliac into external iliac with self expanding stent. She tolerated the procedure well per review and was discharged on DAPT therapy for asa/Plavix for 1 month. She comes in today for n/v/diarrhea and feeling weak; she reports that this has been going on for the past 2 weeks, but has gotten worse over the past few days. She throws up whatever she tries to eat. This is not associated with any abdominal pain. Her diarrhea she reports as a little longer, but normally for her the nausea and vomiting and diarrhea always occur together. She endorses that she has been drinking more milk because she likes it, but it does not always agree with her. In the Emergency room she had a noncontrasted CT scan of her abdomen done secondary to her increase in BUN/LEAD TECHNICIAN- this was consistent for bilateral perinephric stranding as well as 2 pulmonary nodules and and liver lesions. She had a CXR done as well with emphysematous changes. Her WBC was increased to 14 her antibiotics was changed to Zosyn for her cellulitis and the hospitalist service was called for admission. Patient has her 2 chronic ulcerations the left lateral foot ulceration is very tender with minimal erythema. Her left posterior leg ulceration is scabbed over with surrounding erythema and is covered with Xeroform and kerlex wrap. This remains tender which she reports has been like that since her last admission. No overt infection, but will continue Zosyn and admit for KM, vomiting and rehydration. Allergies Allergy/AdvReac Type Severity Reaction Status Date / Time hydrogen peroxide Allergy Unknown ALLERGY Verified 12/02/20 18:13 REPORTED "PEROXIDE"-red and itchy lorazepam [From Ativan] AdvReac Mild flushed BP Verified 12/02/20 18:13 elevated , COMPLAINTS OF SKIN BURNING Home Medications Medication Instructions Recorded Confirmed Type fluticasone propion-salmeterol 2 inh INHALATION DAILY 11/13/20 12/02/20 History [Advair Diskus] furosemide 40 mg PO BID 11/13/20 12/02/20 History glipizide 5 mg PO DAILY 11/13/20 12/02/20 History meloxicam 15 mg PO DAILY 11/13/20 12/02/20 History oxybutynin chloride 5 mg PO BID 11/13/20 12/02/20 History venlafaxine 75 mg PO DAILY 11/13/20 12/02/20 History amoxicillin-pot clavulanate 1 tab PO BIDM 10 Days #20 tab 11/23/20 12/02/20 Rx [Augmentin] aspirin [Aspirin Low Dose] 81 mg PO DAILY #30 tab 11/23/20 12/02/20 Rx atorvastatin 40 mg PO QAM #30 tab 11/23/20 12/02/20 Rx doxycycline hyclate 100 mg PO BID #20 cap 11/23/20 12/02/20 Rx bisacodyl [Dulcolax (bisacodyl)] 10 mg [place] DAILY PRN 12/01/20 12/02/20 History clopidogrel 75 mg PO DAILY #30 tab 12/01/20 12/02/20 Rx ondansetron HCl [Zofran] 4 mg PO Q6H PRN 12/01/20 12/02/20 History attapulgite [Kaopectate 600 mg PO DIRECTED PRN 12/02/20 12/02/20 History (attapulgite)] bismuth subsalicylate 524 mg PO QID PRN 12/02/20 12/02/20 History [Pepto-Bismol] Past Med/Surg History Medical History (Updated 12/02/20 @ 23:07 by Wendy M Gregg, DO) Carotid stenosis, asymptomatic Cellulitis of both lower extremities Delirium Hx of right BKA Hypokalemia PAD (peripheral artery disease) Surgical History (Updated 12/02/20 @ 20:43 by JACQUES Child) History of right below knee amputation Social History Smoking Status: Former smoker Tobacco Type: Cigarettes Cigarettes Per Day: pack a day; Smoking End Date: beginning of November 2020; Second Hand Exposure: No; Hx Alcohol Use: No Hx Substance Use: No Preferred Language: Turkmen Communication Ability: Effective Hand Gluer And Slicer Required: No Beliefs That Will Affect Care: None and Yarsani Current Living Situation: Alone Feels Safe at Home: Yes Safety Concerns: Feels Safe At This Time Assistive Devices: Denture - Upper, Glasses, Prosthesis and Wheelchair Assistive Devices Comment: reports prosthetic needs fixed, uses a wheelchair Review of Systems Review of Systems: REVIEW OF SYSTEMS: Constitutional: No fever, sweats or chills Eyes: No diplopia, no worsening or blurred vision ENT: normal hearing, no trouble swallowing Respiratory: (+) cough, sputum, (-) dyspnea at rest or on exertion Cardiovascular: No chest pain, tightness or palpitations Abdomen: (+) nausea, vomiting, diarrhea, No pain,or constipation Musculoskeletal: (+) chronic as per HPI, Neurologic: No weakness, numbness/tingling, or balance problems Psychiatric: No anxiety or depression Skin: (+) chronic ulcerations and dry skin Physical Exam 2 Physical Exam: PHYSICAL EXAM: General: awake, alert, no apparent distress Head: Normocephalic, atraumatic ENT: PERRL, EOMI, no pharyngeal exudate, mucous membranes moist Neuro: AAO x 3, speech clear and appropriate, strength intact bilaterally 5/5- noting right BKA, sensation intact and equal all extremities and dermatomes, no pronator drift Chest: equal rise and fall of the chest, no accessory muscle use, no heaves or thrills, Clear to auscultation, on room air, Cardiac: Regular rate and rhythm, telemetry reviewed, skin warm dry, cap refill <3 seconds, peripheral pulses +2 no JVD, no murmur, no edema GI: NABS x 4 quadrants, soft, nontender to palpation, no rebound, guarding or tenderness : Spontaneously voiding, no pain, no CVA tenderness, Extremities: dry skin, no peripheral edema, erythema to left posterior calf and mild left foot around ulceration, Psych: Normal mood and affect Skin: as above, no other open areas or ulcerations. Results & Data Results & Data ([facility]) Vital Signs (Past 12 Hours) Vital Signs Temp Pulse Pulse Resp BP BP Pulse Ox 12/02/20 18:44 69 18 140/71 94 12/02/20 17:19 98 12/02/20 17:04 36.7 C 68 20 143/70 H 98 Laboratory Results Abnormal lab results 12/02/20 12/02/20 12/02/20 Range/Units 16:44 17:21 17:21 WBC 14.64 H (4.8-10.8) K/uL RDW Std Deviation 49.1 H (36.4-46.3) fL RDW Coeff of Isiah 14.6 H (11.5-14.5) % MPV 11.9 H (7.4-10.4) fL Neut # (Auto) 10.99 H (1.4-6.5) K/uL [place] # (Auto) 1.26 H (0.11-0.59) K/uL Immature Gran # (Auto) 0.04 H (0.00-0.02) K/uL Potassium 3.4 L (3.5-5.1) mmol/L BUN 53 H (7-18) mg/dl Creatinine 1.39 H (0.6-1.2) mg/dl BUN/Creatinine Ratio 38.4 H (10-20) Glucose 122 H (70-99) mg/dl POC Glucose 163 H (70-99) mg/dl Albumin 3.3 L (3.4-5.0) gm/dl Diagnostic Findings CT SCAN OF THE ABDOMEN AND PELVIS WITHOUT IV CONTRAST CLINICAL HISTORY: Vomiting. Generalized abdominal pain. COMPARISON STUDY: Abdominal ultrasound dated 11/13/2008. Chest CT dated 06/03/2013. TECHNIQUE: CT scan of the abdomen and pelvis is performed from the lung bases to the proximal femora. Images are reviewed in the axial, sagittal, and coronal planes. IV contrast was not administered for this examination. Note that the examination was performed in suboptimal fashion without oral and IV contrast. The Examination is also degraded by motion artifact. A dose lowering technique was utilized adhering to the principles of ALARA. CT DOSE: 317.74 mGy.cm FINDINGS: Lung bases: The heart is normal in size and without pericardial effusion. There are coronary artery calcifications. A small hiatal hernia is noted. A 7 mm right lower lobe pulmonary nodule is seen on image #2. A 10 mm left lower lobe pulmonary nodule is seen on image #16. There is bibasilar scarring/atelectasis. No airspace consolidation or large pleural effusion is identified. Liver: The unenhanced liver is normal in size and heterogeneous in attenuation. Focal fatty infiltration is noted adjacent to the falciform ligament. There is no intrahepatic biliary ductal dilatation. There are 2 indeterminant hypodense hepatic lesions seen on image #39 measuring 1.4 cm and #117 measuring 1.8 cm. Gallbladder: Surgically absent noting clips in the gallbladder fossa. Spleen: Normal in size and attenuation. Pancreas: The unenhanced pancreas is moderately atrophic and grossly unremarkable. Adrenal glands: Unremarkable. Kidneys: There is nonspecific bilateral perinephric stranding. The unenhanced kidneys demonstrate mild cortical atrophy and are without hydronephrosis. There is retained cortical contrast in both kidneys suggesting medical renal disease. There is minimal contrast within the collecting system which degrades assessment for renal calculi. Bilateral cysts measure up to 2.6 cm. Additional subcentimeter cortical hypodensities also likely represent cysts but are too small for definitive characterization. Abdominal vasculature: There is advanced atherosclerotic calcification and ectasia of the abdominal aorta. There is a 3.2 x 3.0 cm (AP x transverse) aneurysm of the distal abdominal aorta. There are bilateral iliac artery stents. Postoperative change is noted in the right groin and a stent is partially visualized in the right femoral artery. Bowel: No bowel obstruction is identified. There is residual enteric contrast throughout the colon. There are scattered colonic diverticula without CT e vidence of acute diverticulitis. A duodenal diverticulum is noted. The appendix is well-visualized and normal. Peritoneum: There is no intraperitoneal free air or abdominal ascites. There is a fat-containing umbilical hernia. Lymphadenopathy: None. Pelvic viscera: The bladder is filled with excreted IV contrast, and is otherwise normal as visualized. Uterus and adnexa are normal as imaged. Skeletal structures: The skeletal structures are heterogeneously osteopenic. There is advanced lumbosacral spondylosis and mild scoliosis. There is a minimal and age indeterminant superior endplate compression deformity of T10. No lytic or blastic lesions are seen. IMPRESSION: 1. Suboptimal examination without oral and IV contrast. There is also motion artifact. 2. There is retained cortical contrast within both kidneys, as well as excreted IV contrast filling the bladder. There is also bilateral nonspecific perinephric stranding. These findings suggest acute renal injury. Correlate with clinical findings, urinalysis, and serum creatinine levels. 3. There are 2 pulmonary nodules at the lung bases measuring up to 10 mm. These are pathologically indeterminant, but new from a [address] Follow-up with a nonemergent dedicated chest CT is recommended for dedicated assessment of the thorax. 4. There are 2 low-attenuation hepatic lesions which measure up to 1.8 cm. These are pathologically indeterminant, but also appear new from the [address] Metastatic lesions are not excluded. 5. There is a 3.2 x 3.0 cm infrarenal abdominal aortic aneurysm. 6. Additional findings as above. SINGLE VIEW CHEST CLINICAL HISTORY: Generalized weakness. Vomiting. Diarrhea. FINDINGS: An AP, portable, upright chest radiograph is compared to study dated 11/13/2020 and correlated with chest CT dated 06/03/2013. The cardiomediastinal silhouette is unremarkable noting atherosclerotic calcification of the thoracic aorta. Emphysematous change and chronic interstitial thickening is similar to previous. There is chronic elevation of the right hemidiaphragm with bibasilar scarring/atelectasis. No airspace consolidation or large pleural effusion is identified. No pneumothorax is seen. The skeletal structures are osteopenic. The bony thorax is grossly intact. IMPRESSION: Emphysematous change with no active disease in the chest. Medications Administered Discontinued Medications Sodium Chloride (Nss) 500 mls @ 999 mls/hr IV .Q31M JOSEP Stop: 12/02/20 17:30 Last Infusion: 12/02/20 18:14 Dose: 0 mls/hr Documented by: [id number] Admin: 12/02/20 17:37 Dose: 999 mls/hr Documented by: [id number] Sodium Chloride (Nss 1000ml) 500 mls @ 999 mls/hr IV .Q31M ONE Stop: 12/02/20 18:54 Last Infusion: 12/02/20 19:08 Dose: 0 mls/hr Documented by: [id number] Admin: 12/02/20 18:37 Dose: 999 mls/hr Documented by: [id number] Piperacillin Sod/Tazobactam Sod (Zosyn) 4.5 gm in 120 mls @ 240 mls/hr IV NOW ONE Stop: 12/02/20 19:31 Last Admin: 12/02/20 20:09 Dose: 240 mls/hr Documented by: [id number] Ondansetron HCl (Ondansetron Inj 2 Mg/Ml 2 Ml Vial) 4 mg IV NOW STA Stop: 12/02/20 16:54 Last Admin: 12/02/20 17:41 Dose: 4 mg Documented by: [id number] Home Medications fluticasone propion-salmeterol [Advair Diskus] 2 inh INHALATION DAILY 11/13/20 [History Confirmed 12/02/20] furosemide 40 mg PO BID 11/13/20 [History Confirmed 12/02/20] glipizide 5 mg PO DAILY 11/13/20 [History Confirmed 12/02/20] meloxicam 15 mg PO DAILY 11/13/20 [History Confirmed 12/02/20] oxybutynin chloride 5 mg PO BID 11/13/20 [History Confirmed 12/02/20] venlafaxine 75 mg PO DAILY 11/13/20 [History Confirmed 12/02/20] amoxicillin-pot clavulanate [Augmentin] 1 tab PO BIDM 10 Days #20 tab 11/23/20 [Rx Confirmed 12/02/20] aspirin [Aspirin Low Dose] 81 mg PO DAILY #30 tab 11/23/20 [Rx Confirmed 12/02/20] atorvastatin 40 mg PO QAM #30 tab 11/23/20 [Rx Confirmed 12/02/20] doxycycline hyclate 100 mg PO BID #20 cap 11/23/20 [Rx Confirmed 12/02/20] bisacodyl [Dulcolax (bisacodyl)] 10 mg [place] DAILY PRN 12/01/20 [History Confirmed 12/02/20] clopidogrel 75 mg PO DAILY #30 tab 12/01/20 [Rx Confirmed 12/02/20] ondansetron HCl [Zofran] 4 mg PO Q6H PRN 12/01/20 [History Confirmed 12/02/20] attapulgite [Kaopectate (attapulgite)] 600 mg PO DIRECTED PRN 12/02/20 [History Confirmed 12/02/20] bismuth subsalicylate [Pepto-Bismol] 524 mg PO QID PRN 12/02/20 [History Confirmed 12/02/20] Active Medications Lactated Ringer's (Lr) 1,000 mls @ 80 mls/hr IV .[id number] JOSEP Stop: 01/01/21 19:44 Miscellaneous Information (Piperacill/Tazobac Consult Active) 1 ea N/A UD PRN PRN Reason: Consult Stop: 01/01/21 19:01 ECG Additional Comments: Normal sinus rhythm Right bundle branch block Left anterior fascicular block Bifascicular block, Lateral infarct (cited on or before 13-NOV-2020) Abnormal ECG When compared with ECG of 13-NOV-2020 16:57, Nonspecific T wave abnormality no longer evident in Inferior lead Code Status & VTE Plan Code Status CODE: FULL VTE: SCD's, Heparin VTE Prophylaxis Plan VTE Prophylaxis will be ordered: Yes Supervising Physician Co-Signing Physician Notes Patient seen and examined, chart reviewed, case discussed with CYTOLOGIST Neri and I agree with his assessment and plan as documented above. Briefly, patient is a 80yo female presenting with nausea/vomiting/diarrhea and PO intolerance as well as weakness - ongoing x 2 weeks with acute worsening in the last few days. ?if secondary to increased dairy intake vs medication effects vs gastroenteritis. KM. Patient with recent endovascular procedure performed yesterday. On exam patient is elderly, NAD Skin - dry, flaking on foot, bandage in place on LLE c/d/i HEENT - NC/AT, PERRL Heart - +S1/S2, regular, no m/r/g Lungs - CTA Abd - +BS, soft, NT/ND Labs and images reviewed. WBC=14.64. K=3.1 BUN=51, Cr=1.28 PG Care Time/CCT Total # of Minutes Spent Total Time Spent with Patient: Total time spent is greater than 50% in coordination of care (as documented) at patient's floor/unit and/or counseling patient: Coding Level of Care Code 63407 Initial Inpt Care Lvl 3 Diagnoses Acute vomiting R11.10 Diarrhea R19.7 Diarrhea type: unspecified type KM (acute kidney injury) N17.9 Leukocytosis D72.829 Leukocytosis type: unspecified Hx of right BKA Z89.511 PAD (peripheral artery disease) I73.9 Cellulitis L03.116 Laterality: left Site of cellulitis: extremity Site of cellulitis of extremity: lower extremity COPD (chronic obstructive pulmonary disease) J43.8 COPD type: emphysema Emphysema type: other Chronic pain G89.4 Chronic pain type: chronic pain syndrome Pulmonary lesion J98.4 (1) Chronic pain Chronic pain type: chronic pain syndrome Qualified Code(s): G89.4 - Chronic pain syndrome (2) Cellulitis Laterality: left Site of cellulitis: extremity Site of cellulitis of extremity: lower extremity Qualified Code(s): L03.116 - Cellulitis of left lower limb (3) Diarrhea Diarrhea type: unspecified type Qualified Code(s): R19.7 - Diarrhea, unspecified (4) Leukocytosis Leukocytosis type: unspecified Qualified Code(s): D72.829 - Elevated white blood cell count, unspecified (5) COPD (chronic obstructive pulmonary disease) COPD type: emphysema Emphysema type: other Qualified Code(s): J43.8 - Other emphysema
[2020-12-02] MEDS: LACTATED RINGER'S 1,000 ML IV SCH (20:53)
[2020-12-02 21:11] LABS: Lipase 65 U/L (73-393)
[2020-12-02 21:20] LABS: C Reactive Protein < 0.29 mg/dl (0-0.29)
[2020-12-02] MEDS ORDERED: POLYETHYLENE (MIRALAX) 17 GM PACK PO PRN (21:58)
[2020-12-02] MEDS ORDERED: ONDANSETRON 4 MG OD TAB PO PRN (22:10)
[2020-12-02 22:53] LABS: BUN Creatinine Ratio 39.9 (10-20); Calcium 9.5 mg/dl (8.5-10.1); Est GFR (African American) 46.4; Potassium 3.1 mmol/L (3.5-5.1)
[2020-12-02 22:58] LABS: Troponin I 0.035 ng/ml (0-0.045)
[2020-12-03] MEDS: HEPARIN SOD 5,000 UNIT/0.5 ML VIAL SQ SCH ×3 (00:09→22:14)
[2020-12-03] MEDS: OXYBUTYNIN CHLORIDE 5 MG TAB PO SCH ×3 (00:09→22:14)
[2020-12-03] MEDS: PIPERACILLIN/TAZOBACTAM 3.375 GM in DEXTROSE 5% 100 ML IV SCH ×2 (02:04→11:04)
[2020-12-03] MEDS ORDERED: CARBOHYDRATES FOR HYPOGLYCEMIA PO PRN (07:30)
[2020-12-03] MEDS ORDERED: GLUCOSE 10 TABS/TUBE PO PRN (07:30)
[2020-12-03] MEDS ORDERED: GLUCOSE 40% GEL 15 GM TUBE PO PRN (07:30)
[2020-12-03] MEDS ORDERED: GLUCAGON FOR INJ 1 MG VIAL SQ PRN (07:30)
[2020-12-03] MEDS ORDERED: DEXTROSE 50% 50 ML SYRINGE IV PRN (07:30)
[2020-12-03] MEDS: FAMOTIDINE 20 MG in SYRINGE 3 ML IV SCH (07:31)
[2020-12-03] MEDS: ATORVASTATIN 40 MG TAB PO SCH (07:34)
[2020-12-03] MEDS: CLOPIDOGREL BISULFATE 75 MG TAB PO SCH (07:35)
[2020-12-03] MEDS: ASPIRIN 81 MG ECTAB PO SCH (07:36)
[2020-12-03] MEDS: VENLAFAXINE HCL XR 75 MG CAPXR PO SCH (07:37)
[2020-12-03] MEDS: FLUTICASONE/VILANTEROL 200/25MCG 14 PUFFS/INHALER INH SCH (07:39)
--- NOTE | 2020-12-03 08:00 | Electrocardiogram Report ---
Test Reason : Blood Pressure : / mmHG Vent. Rate : 066 BPM Atrial Rate : 066 BPM P-R Int : 116 ms QRS Dur : 128 ms QT Int : 474 ms P-R-T Axes : 069 -66 083 degrees QTc Int : 496 ms Poor data quality, interpretation may be adversely affected Normal sinus rhythm Right bundle branch block Left anterior fascicular block Bifascicular block Possible Lateral infarct Abnormal ECG When compared with ECG of 13-NOV-2020 16:57, Confirmed by Karel Carrera ([id number]) on 12/03/2020 7:59:54 AM Referred By: REFERRED SELF Confirmed By:Karel Carrera
[2020-12-03] MEDS: INSULIN ASPART 100 UNITS/ML 3 ML PEN SC SCH ×4 (08:10→20:49)
[2020-12-03] MEDS ORDERED: POTASSIUM CHLORIDE CRTAB 20 MEQ TABCR PO ONE (09:00)
[2020-12-03] MEDS: LACTATED RINGER'S 1,000 ML IV SCH ×2 (10:11→20:12)
[2020-12-03] MEDS: ACETAMINOPHEN 325 MG TAB PO PRN ×2 (11:08→20:11)
--- NOTE | 2020-12-03 11:55 | Hospitalist Progress Note ---
Date of Service December 03, 2020 Assessment & Plan (1) Acute vomiting: Acacia is a 80-year-old female with a past medical history of COPD, asymptomatic carotid stenosis, peripheral artery disease status post left lower extremity vascular stenting, and right BKA who presented with approximately 5 days of nausea/vomiting and he was admitted for nausea/vomiting with KM. Nausea/vomiting/diarrhea, acute Patient reports approximately 5-day history with unclear time course and connection to her Augmentin Last bowel movement day of admission, patient reports her diarrhea has improved and she has had not had any episodes of diarrhea today. Nausea/vomiting with gradual improvement and self-limited symptoms to suggest viral gastroenteritis, her antibiotic course and hospitalizations increase her risk for C. difficile but given resolution of her diarrhea testing is not indicated at this time. If watery diarrhea returns, would recommend testing at that time WBC 14.64 on admission, illness versus demargination. Trend daily Lactate normal, troponin normal Famotidine 20 mg daily Follow clinically KM vs prerenal azotemia Suspect prerenal in the setting of GI illness Baseline creatinine less than 1, acutely elevated to 1.28 Trend BMP daily Diuretics held History of DM Home glipizide held Converted to insulin aspart SSI. Goal 134966, CF 80, ratio 1:25 Glucose checks AC/at bedtime BMP daily Hx of right BKA: -No acute needs, no signs of active infection PT/OT Peripheral artery disease History of recent left lower extremity vascular stenting Continue DAPT History of cellulitis Chronic, no acute worsening signs, well dressed without drainage Converted to Zosyn on admission, patient on Augmentin/doxycycline prior to admission. This was prescribed at discharge on 11/23 with intent to be continued for 10 days through 12/03. At this point this course of antibiotics course is completed, and given normal limb exam will discontinue Zosyn and doxycycline. CRP normal COPD (chronic obstructive pulmonary disease): -Prior daily smoker Convert COURT SPECIALIST Advair to inpatient equivalent History of chronic pain NSAIDs held in the setting of acute GI distress as above Tylenol every 4 hours as needed, pain adequately controlled at time of morning assessment Pulmonary nodule 2 pulmonary nodules appreciated on CT abdomen/pelvis Dedicated lung CT pending. Liver nodule - CT-A/PL The unenhanced liver is normal in size and heterogeneous in attenuation. Focal fatty infiltration is noted adjacent to the falciform ligament. There is no intrahepatic biliary ductal dilatation. There are 2 indeterminant hypodense hepatic lesions seen on image #39 measuring 1.4 cm and #117 measuring 1.8 cm. -Not suspect these are contributing to her current presentation, will require additional outpatient follow-up and potential imaging Transaminases normal, bilirubin normal, alkaline phosphatase normal Diet: Regular as tolerated DVT prophylaxis: Heparin 5000 every 12 Disposition: Medical telemetry (2) KM (acute kidney injury): (3) Diarrhea: (4) COPD (chronic obstructive pulmonary disease): (5) Pulmonary lesion: (6) Hx of right BKA: (7) PAD (peripheral artery disease): Admission and Anticipated Discharge Date Admission Date: December 02, 2020 Supervising Physician Co-Signing Physician Notes I also saw the placement and confirmed ryder portions of the history and physical examination. Agree with the impression and plan and the resident documentation. The patient actually feels quite better this morning. She denies nausea, abdominal pain, emesis, or loose stool. Exam 131/67, 66, 20, 36.4, 94% on room air Pleasant. No acute distress. Heart regular. Respirations nonlabored. Abdomen soft and nontender. Bowel sounds are present. Normoactive. dry, flaking skin on foot, bandage in place on LLE c/d/i Data WBC 14.64 Hemoglobin 15.7 Potassium 3.1 BUN 51, creatinine 1.[address] showed bilateral lower lobe solid noncalcified pulmonary nodules; 6- month follow-up is recommended. Also demonstrated ground glass opacities favoring atelectasis. CT of the abdomen and pelvis make notes of 2 low-attenuation hepatic lesions measuring up to 1.8 cm. These are new compared to 2013. Metastatic lesions are not excluded. Mention is also made of a 3.2 x 3.0 cm infrarenal abdominal aortic aneurysm. Blood cultures dated 12/02 demonstrate no growth. Impression/Plan Nauseating/vomiting, diarrhea, acute, improving Advance diet Repeat CBC and BMP in a.m. Replete potassium KM, likely secondary to gastrointestinal illness Hold diuretics BMP in a.m. Incidental CT findings as noted above Follow-up as recommended (outpatient) Additional per resident documentation Subjective Patient is seen at the bedside. She is alert, oriented and reports she feels "much better ". She reports that she had several, approximately 5 days of nausea/vomiting with diarrhea which have not recurred today. She reports her last episode of diarrhea was just prior to coming into the hospital, and while it was liquid she has not had any bowel movements yet this morning. She reports her nausea is mostly improved, and she was able to be breakfast without pain or difficulty this morning. She denies fever/chills/sweats today. She denies cough. She reports that she has cellulitis of her left extremity on Augmentin therapy, feels her leg is doing well and has not noticed any spreading erythema or increased pain. Review of Systems Review of Systems: All systems reviewed & are unremarkable except as noted in HPI & below Physical Exam Physical Exam: General: A&Ox3. NAD. Cooperative. HEENT: Atraumatic, normocephalic. Dual acuity grossly intact, extraocular movements grossly intact, hearing grossly intact. Pulm: CTAB A&P. -wheezes, -rales, -rhonchi. Symmetrical chest rise. No increase work of breathing. No respiratory distress. Cardiac: RRR, -mrg. Radial pulses intact and symmetrical. Abdominal: Nontender, nondistended, soft. BS present. Extremities: Left lower extremity with wound care dressing in place, no pitting edema or spreading erythema appreciated above or below the dressing, PT pulse intact in left foot. Right lower extremity surgically absent 2/2 BKA, AKA stump intact without dehiscence, ulceration, or erythema. Results & Data Results & Data ([facility]) Vital Signs (Past 12 Hours) Vital Signs Temp Pulse Pulse Resp BP Pulse Ox 12/03/20 08:20 64 12/03/20 07:00 36.5 C 58 L 18 163/73 H 99 12/03/20 03:00 36.3 C L 56 L 18 162/79 H 98 12/03/20 01:42 75 Resident Activity Tracking Resident Involvement: Resident Care Provided Care Provided: Adult Hospital Medicine (1) Diarrhea Diarrhea type: unspecified type Qualified Code(s): R19.7 - Diarrhea, unspecified (2) COPD (chronic obstructive pulmonary disease) COPD type: emphysema Emphysema type: other Qualified Code(s): J43.8 - Other emphysema
[2020-12-03] MEDS: LACTOBACILLUS ACIDOPHILUS 1 GM PACK PO SCH ×2 (12:47→17:47)
--- NOTE | 2020-12-03 14:41 | CT Scan Report ---
CT OF THE CHEST WITHOUT IV CONTRAST CLINICAL HISTORY: lung nodules at base COMPARISON STUDY: Chest CT June 03, 2013. Chest radiograph December 02, 2020. CT of the abdomen and pelvis December 02, 2020. CT DOSE: 661.00 mGy.cm TECHNIQUE: Axial images of the chest were obtained without IV contrast. Images were reviewed in the axial, sagittal, and coronal planes. IV contrast was not administered for this examination. Automat ed exposure control was utilized for the study. A dose lowering technique was utilized adhering to t he principles of ALARA. FINDINGS: This exam is compromised by motion artifact. The heart is mildly enlarged. No pericardial effusion is noted. No enlarged thoracic lymph nodes are present. Lungs are suboptimally assessed due to respiratory motion. There are groundglass opacities that favor atelectasis. Note is made of a 6 mm subpleural right lower lobe nodule on image 138 of 291 which has increased in size since CT of December when it measured 4 mm. An 8 mm left lower lobe nodule on image 145 was not present on CT of 2009. Several additional tiny right upper lobe nodules are unchanged. There is mild emphysema. C entral airways are patent. 2 hypodense right hepatic lobe lesions are better depicted on CT of December 02, 2020. These remain indeterminate. IMPRESSION: 1. Indeterminate bilateral lower lobe solid noncalcified pulmonary nodules, as described above. These are suboptimally assessed on this exam due to respiratory motion. A follow-up chest CT in 6 months i s recommended for reassessment. 2. Ground glass opacities within the lungs which favor atelectasis. 3. Several indeterminate hepatic lesions which are better depicted on CT of December 02, 2020. 4. Mild emphysema. ACT 112: Negative or not required by law. Electronically signed by: Parish Vinson M.D. 12/03/2020 2:39 PM
[2020-12-03] MEDS ORDERED: traMADol HCL 50 MG TABLET PO STA (21:54)
[2020-12-04] MEDS: ACETAMINOPHEN 325 MG TAB PO PRN ×2 (00:46→21:01)
[2020-12-04 07:48] LABS: Basophils # (auto) 0.01 K/uL (0-0.2); Basophils % (auto) 0.2 %; Eosinophils # (auto) 0.79 K/uL (0-0.5); Eosinophils % (auto) 11.9 %; Hematocrit (blood only) 37.6 % (37-47); Hemoglobin 12.4 g/dL (12.0-16.0); Immature Granulocytes # (auto) 0.02 K/uL (0.00-0.02); Immature Granulocytes % (auto) 0.3 %; Lymphocytes # (auto) 1.47 K/uL (1.2-3.4); Lymphocytes % (auto) 22.1 %; Mean Corpuscular Hemoglobin 30.6 pg (25-34); Mean Corpuscular Volume 92.8 fL (80-100); Mean Platelet Volume 11.2 fL (7.4-10.4); Monocytes # (auto) 0.52 K/uL (0.11-0.59); Monocytes % (auto) 7.8 %; Neutrophils # (auto) 3.85 K/uL (1.4-6.5); Neutrophils % (auto) 57.7 %; Platelet Count 257 K/uL (130-400); RDW Coefficient of Variation 14.5 % (11.5-14.5); RDW Standard Deviation 49.2 fL (36.4-46.3); Red Blood Count 4.05 M/uL (4.2-5.4); White Blood Count 6.66 K/uL (4.8-10.8)
[2020-12-04] MEDS: LACTOBACILLUS ACIDOPHILUS 1 GM PACK PO SCH ×3 (07:59→17:06)
[2020-12-04] MEDS: ATORVASTATIN 40 MG TAB PO SCH (08:00)
[2020-12-04] MEDS: OXYBUTYNIN CHLORIDE 5 MG TAB PO SCH ×2 (08:00→21:01)
[2020-12-04] MEDS: VENLAFAXINE HCL XR 75 MG CAPXR PO SCH (08:00)
[2020-12-04] MEDS: CLOPIDOGREL BISULFATE 75 MG TAB PO SCH (08:00)
[2020-12-04] MEDS: ASPIRIN 81 MG ECTAB PO SCH (08:01)
[2020-12-04] MEDS: HEPARIN SOD 5,000 UNIT/0.5 ML VIAL SQ SCH ×2 (08:01→21:02)
[2020-12-04] MEDS: FLUTICASONE/VILANTEROL 200/25MCG 14 PUFFS/INHALER INH SCH (08:01)
[2020-12-04] MEDS: FAMOTIDINE 20 MG in SYRINGE 3 ML IV SCH (08:11)
[2020-12-04] MEDS: INSULIN ASPART 100 UNITS/ML 3 ML PEN SC SCH ×4 (08:12→21:02)
[2020-12-04] MEDS: LACTATED RINGER'S 1,000 ML IV SCH ×2 (08:14→20:48)
[2020-12-04 08:17] LABS: BUN Creatinine Ratio 42.2 (10-20); Calcium 8.9 mg/dl (8.5-10.1); Creatinine Clr Calc Pharmacy 49.8 ml/min; Est GFR (African American) 85.7; Potassium 3.8 mmol/L (3.5-5.1)
--- NOTE | 2020-12-04 09:27 | Hospitalist Progress Note ---
Date of Service December 04, 2020 Assessment & Plan (1) Acute vomiting: Acacia is a 80-year-old female with a past medical history of COPD, asymptomatic carotid stenosis, peripheral artery disease status post left lower extremity vascular stenting, and right BKA who presented with approximately 5 days of nausea/vomiting and he was admitted for nausea/vomiting with KM. Nausea/vomiting/diarrhea, acute Patient reports approximately 5-day history with unclear time course and connection to her Augmentin Last bowel movement day of admission, patient reports her diarrhea has improved and she has had not had any episodes of diarrhea today. Nausea/vomiting with gradual improvement and self-limited symptoms to suggest viral gastroenteritis, her antibiotic course and hospitalizations increase her risk for C. difficile but given resolution of her diarrhea testing is not indicated at this time. If watery diarrhea returns, would recommend testing at that time WBC 14.64 on admission, illness versus demargination. Trend daily Lactate normal, troponin normal Famotidine 20 mg daily Follow clinically KM vs prerenal azotemia Suspect prerenal in the setting of GI illness Baseline creatinine less than 1, acutely elevated to 1.28 Trend BMP daily Diuretics held History of DM Home glipizide held Converted to insulin aspart SSI. Goal [id number], CF 80, ratio 1:25 Glucose checks AC/at bedtime BMP daily Hx of right BKA: -No acute needs, no signs of active infection PT/OT Peripheral artery disease History of recent left lower extremity vascular stenting Continue DAPT History of cellulitis Chronic, no acute worsening signs, well dressed without drainage Converted to Zosyn on admission, patient on Augmentin/doxycycline prior to admission. This was prescribed at discharge on 11/23 with intent to be continued for 10 days through 12/03. At this point this course of antibiotics course is completed, and given normal limb exam will discontinue Zosyn and doxycycline. 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 Liver nodule - CT-A/PL The unenhanced liver is normal in size and heterogeneous in attenuation. Focal fatty infiltration is noted adjacent to the falciform ligament. There is no intrahepatic biliary ductal dilatation. There are 2 indeterminant hypodense hepatic lesions seen on image #39 measuring 1.4 cm and #117 measuring 1.8 cm. -Not suspect these are contributing to her current presentation, will require additional outpatient follow-up and potential imaging Transaminases normal, bilirubin normal, alkaline phosphatase normal Diet: Regular as tolerated DVT prophylaxis: Heparin 5000 every 12 Disposition: Medical telemetry (2) KM (acute kidney injury): (3) Diarrhea: (4) COPD (chronic obstructive pulmonary disease): (5) Pulmonary lesion: (6) Hx of right BKA: (7) PAD (peripheral artery disease): Admission and Anticipated Discharge Date Admission Date: December 02, 2020 Results & Data Results & Data ([facility]) Vital Signs (Past 12 Hours) Vital Signs Temp Pulse Pulse Resp BP Pulse Ox 12/04/20 07:43 57 L 12/04/20 03:19 36.5 C 56 L 16 168/76 H 92 12/04/20 00:00 61 12/03/20 23:38 36.9 C 64 16 134/54 L 92 12/03/20 23:25 36.4 C L 77 20 116/65 91 (1) Diarrhea Diarrhea type: unspecified type Qualified Code(s): R19.7 - Diarrhea, unspecified (2) COPD (chronic obstructive pulmonary disease) COPD type: emphysema Emphysema type: other Qualified Code(s): J43.8 - Other emphysema
--- NOTE | 2020-12-04 15:34 | Discharge Summary ---
Date of Service December 04, 2020 Admission HPI Per Admitting Provider 80 YOF with past medical history of COPD, DMII, PAD, with Right BKA, chronic left lower extremity non healing ulcerations. She was recently discharged from [facility] on [id number] following an ulceration to her distal left cath and left lateral ulceration and cellulitis. She was treated with daptomycin and Zosyn recovered and went to [facility] for rehab on Augmentin and Doxycycline and had her revascularization scheduled. She was discharged from [facility] yesterday as well as having her endovascular procedure done yesterday. She had angioplasty of left ostial to distal SFA with 2 drug-eluting balloons, stenting to left common iliac with self-expanding stent, and stent to right distal common iliac into external iliac with self expanding stent. She tolerated the procedure well per review and was discharged on DAPT therapy for asa/Plavix for 1 month. She comes in today for n/v/diarrhea and feeling weak; she reports that this has been going on for the past 2 weeks, but has gotten worse over the past few days. She throws up whatever she tries to eat. This is not associated with any abdominal pain. Her diarrhea she reports as a little longer, but normally for her the nausea and vomiting and diarrhea always occur together. She endorses that she has been drinking more milk because she likes it, but it does not always agree with her. In the Emergency room she had a noncontrasted CT scan of her abdomen done secondary to her increase in BUN/FOLLOW UP CLERK- this was consistent for bilateral perinephric stranding as well as 2 pulmonary nodules and and liver lesions. She had a CXR done as well with emphysematous changes. Her WBC was increased to 14 her antibiotics was changed to Zosyn for her cellulitis and the hospitalist service was called for admission. Patient has her 2 chronic ulcerations the left lateral foot ulceration is very tender with minimal erythema. Her left posterior leg ulceration is scabbed over with surrounding erythema and is covered with Xeroform and kerlex wrap. This remains tender which she reports has been like that since her last admission. No overt infection, but will continue Zosyn and admit for KM, vomiting and rehydration. Discharge Exam Constitutional WD/WN, vitals as above Eyes PERRL, conjunctivae normal, anicteric sclerae Respiratory normal respiratory effort, lungs clear to auscultation Auscultation: no crackles, no rales, no rhonchi and no wheezes Cardiovascular Rate/Rhythm: regular rate and regular rhythm Heart Sounds: no gallop, no murmur and no cardiac rub Vessels: normal peripheral pulses; no JVD Extremities: no edema Gastrointestinal (Abdomen) Inspection/Auscultation: normal bowel sounds; abdomen not distended Percussion/Palpation: abdomen soft; abdomen nontender and no guarding Musculoskeletal no cyanosis or clubbing, extremities motor strength 5/5 Skin no rashes, warm and dry Neurologic PERRL, EOMI, accommodation nl, no face palsy, no dysarthria CN's II-XI intact bilaterally and moves all extremities Psychiatric Orientation: alert and oriented x 3 Discharge Data Allergies Allergy/AdvReac Type Severity Reaction Status Date / Time hydrogen peroxide Allergy Unknown ALLERGY Verified 12/02/20 18:13 REPORTED "PEROXIDE"-red and itchy lorazepam [From Ativan] AdvReac Mild flushed BP Verified 12/02/20 18:13 elevated , COMPLAINTS OF SKIN BURNING Consultations 12/02/20 19:21 ED Decision to Admit Stat Ordered Studies 12/02/20 16:53 CT abd pelvis wo con Stat 12/02/20 23:09 CT chest diagnostic wo con Routine Hospital Course (1) Acute vomiting: Acacia is a 80-year-old female with a past medical history of COPD, asymptomatic carotid stenosis, peripheral artery disease status post left lower extremity vascular stenting, and right BKA who presented with approximately 5 days of nausea/vomiting and he was admitted for nausea/vomiting with KM. Nausea/vomiting/diarrhea, acute Patient reports approximately 5-day history with unclear time course and connection to her Augmentin Last bowel movement day of admission, patient reports her diarrhea has improved and she has had not had any episodes of diarrhea today. Nausea/vomiting with gradual improvement and self-limited symptoms to suggest viral gastroenteritis, her antibiotic course and hospitalizations increase her risk for C. difficile but given resolution of her diarrhea testing is not indicated at this time. If watery diarrhea returns, would recommend testing at that time WBC 14.64 on admission, illness versus demargination. Trend daily Lactate normal, troponin normal Famotidine 20 mg daily Follow clinically KM vs prerenal azotemia Suspect prerenal in the setting of GI illness Baseline creatinine less than 1, acutely elevated to 1.28 Trend BMP daily Diuretics held History of DM Home glipizide held Converted to insulin aspart SSI. Goal [id number], CF 80, ratio 1:25 Glucose checks AC/at bedtime BMP daily Hx of right BKA: -No acute needs, no signs of active infection PT/OT Peripheral artery disease History of recent left lower extremity vascular stenting Continue DAPT History of cellulitis Chronic, no acute worsening signs, well dressed without drainage Converted to Zosyn on admission, patient on Augmentin/doxycycline prior to admission. This was prescribed at discharge on 11/23 with intent to be continued for 10 days through 12/03. At this point this course of antibiotics course is completed, and given normal limb exam will discontinue Zosyn and doxycycline. 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 Liver nodule - CT-A/PL The unenhanced liver is normal in size and heterogeneous in attenuation. Focal fatty infiltration is noted adjacent to the falciform ligament. There is no intrahepatic biliary ductal dilatation. There are 2 indeterminant hypodense hepatic lesions seen on image #39 measuring 1.4 cm and #117 measuring 1.8 cm. -Not suspect these are contributing to her current presentation, will require additional outpatient follow-up and potential imaging Transaminases normal, bilirubin normal, alkaline phosphatase normal Diet: Regular as tolerated DVT prophylaxis: Heparin 5000 every 12 Disposition: Medical telemetry (2) KM (acute kidney injury): (3) Diarrhea: (4) COPD (chronic obstructive pulmonary disease): (5) Pulmonary lesion: (6) Hx of right BKA: (7) PAD (peripheral artery disease): Discharge Plan Discharge Items Patient Disposition: Home - Self-Care Reason For Visit: DIARRHEA,VOMITING,CELLULITIS Discharge Diagnosis: gastroenteritis Condition on Discharge: Fair Activity: Per Instructions section Non-emergency contact: Primary Care Provider Call non-emergency contact if: you have any medication questions, your symptoms worsen, your pain is concerning for you and you have a fever Follow-up/Referrals: Og Baca MD [Primary Care Provider] - Diet: Carb Consistent or DM2 and Heart Healthy Pending Studies at Discharge: No Stand-Alone Forms: My [facility], Smoking Cessation Medications and DC Order Prescriptions: Continued ondansetron HCl [Zofran] 4 mg Tablet 4 mg PO Q6H PRN (Reason: Nausea) RF: 0 bisacodyl [Dulcolax (bisacodyl)] 10 mg Suppository 10 mg OH DAILY PRN (Reason: Constipation) RF: 0 clopidogrel 75 mg tablet 75 mg PO DAILY Qty: 30 RF: 1 furosemide 40 mg tablet 40 mg PO BID RF: 0 glipizide 5 mg tablet 5 mg PO DAILY RF: 0 oxybutynin chloride 5 mg tablet 5 mg PO BID RF: 0 meloxicam 15 mg tablet 15 mg PO DAILY RF: 0 venlafaxine 75 mg capsule,extended release 24hr 75 mg PO DAILY RF: 0 fluticasone propion-salmeterol [Advair Diskus] 250-50 mcg/dose blister with device 2 inh INHALATION DAILY RF: 0 atorvastatin 40 mg Tablet 40 mg PO QAM Qty: 30 RF: 0 aspirin [Aspirin Low Dose] 81 mg tablet,delayed release (DR/EC) 81 mg PO DAILY Qty: 30 RF: 0 Kaopectate (attapulgite) 600 mg/15 mL Suspension 600 mg PO DIRECTED PRN (Reason: gastric upset) RF: 0 bismuth subsalicylate [Pepto-Bismol] 262 mg/15 mL Suspension 524 mg PO QID PRN (Reason: gastric upset) RF: 0 Discontinued amoxicillin-pot clavulanate [Augmentin] 875-125 mg Tablet 1 tab PO BIDM 10 Days Qty: 20 RF: 0 doxycycline hyclate 100 mg Capsule 100 mg PO BID Qty: 20 RF: 0 Krames/Other Patient Handouts: High Blood Sugar (Hyperglycemia), Hypoglycemia (Low Blood Sugar), Managing Type 2 Diabetes Admission Data Admit Date/Time: 12/02/20 20:24 Attending Provider: Weston Serrano Admit Provider: Wendy Escobedo Primary Care Provider: Og Baca Other Providers: Wendy Escobedo ; Russell Gutierrez ; [facility],Home Healthcare Resident Activity Tracking Resident Involvement: Resident Care Provided Care Provided: Adult [facility] Attestation I certify that this patient is under my care and that I, or a physicians medical practice assistant working with me, had a face to-face encounter that meets the home health [id number] encounter requirements with this patient. The encounter with the patient was in whole, or in part, for the following medical condition, which is the primary reason for home health care (list medical condition): Cellulitis I certify that, based on my findings, the following services are medically necessary home health services: My clinical findings support the need for the above services because: Caregiver Instruct Med Mgmt, Safety, Disease Process, Signs to Report Home Safety Assessment Medication Toll Testboard Worker Incision for Infection OT Assess ADL Status and Restore Function w ADLs PT Eval for Safety, Gait Training, Assistive Devices Skilled Nsg Assessment Surgical Incision / Wound Further, I certify that my clinical findings support that this patient is homebound (i.e. absences from home require considerable and taxing effort and are for medical reasons or christian services or infrequently or of short duration when for other reasons) because: Chair Bound; Requires Transfer Assist Supportive Aid - Wheelchair Certification for Home Health Services: Based on the above findings, I certify that this patient is confined to the home and needs intermittent [facility] care, physical therapy and/or speech therapy or continues to need occupational therapy. The patient is under my care, and I have initiated the establishment of the plan of care. This patient will be followed by a physician who will periodically review the plan of care.
--- NOTE | 2020-12-04 16:42 | Hospitalist Progress Note ---
Date of Service December 04, 2020 Assessment & Plan (1) Acute vomiting: Acacia is a 80-year-old female with a past medical history of COPD, asymptomatic carotid stenosis, peripheral artery disease status post left lower extremity vascular stenting, and right BKA who presented with approximately 5 days of nausea/vomiting and he was admitted for nausea/vomiting with KM. Nausea/vomiting/diarrhea, acute: Patient reports approximately 5-day history with unclear time course and connection to her Augmentin Last bowel movement day of admission, patient reports her diarrhea has improved and she has had not had any episodes of diarrhea today. Nausea/vomiting with gradual improvement and self-limited symptoms to suggest viral gastroenteritis, her antibiotic course and hospitalizations increase her risk for C. difficile but given resolution of her diarrhea testing is not indicated at this time. If watery diarrhea returns, would recommend testing at that time WBC 14.64 on admission, illness versus demargination. Trend daily Lactate normal, troponin normal Famotidine 20 mg daily KM vs prerenal azotemia: Suspect prerenal in the setting of GI illness Baseline creatinine less than 1, acutely elevated to 1.28 Trend BMP daily History of DM: Home glipizide held Converted to insulin aspart SSI. Goal 140663, CF 80, ratio 1:25 Glucose checks AC/at bedtime BMP daily Hx of right BKA: -No acute needs, no signs of active infection -PT/OT -Patient with need for SNF based off outpatient report from PCP with families expressed desire for referral to [facility]; patient expresses no interest in going to anywhere other than home -home health services denied given the level of care required Peripheral artery disease: History of recent left lower extremity vascular stenting Continue DAPT History of cellulitis: Chronic, no acute worsening signs, well dressed without drainage Converted to Zosyn on admission, patient on Augmentin/doxycycline prior to admission. This was prescribed at discharge on 11/23 with intent to be continued for 10 days through 12/03. At this point this course of antibiotics course is completed, and given normal limb exam will discontinue Zosyn and doxycycline. CRP normal COPD (chronic obstructive pulmonary disease): -Prior daily smoker Convert [employer] Advair to inpatient equivalent History of chronic pain: NSAIDs held in the setting of acute GI distress as above Tylenol every 4 hours as needed, pain adequately controlled at time of morning assessment Pulmonary nodule: 2 pulmonary nodules appreciated on CT abdomen/pelvis Dedicated lung CT pending. Liver nodule: - CT-A/PL The unenhanced liver is normal in size and heterogeneous in attenuation. Focal fatty infiltration is noted adjacent to the falciform ligament. There is no intrahepatic biliary ductal dilatation. There are 2 indeterminant hypodense hepatic lesions seen on image #39 measuring 1.4 cm and #117 measuring 1.8 cm. -Not suspect these are contributing to her current presentation, will require additional outpatient follow-up and potential imaging Transaminases normal, bilirubin normal, alkaline phosphatase normal Diet: Regular as tolerated DVT prophylaxis: Heparin 5000 every 12 Disposition: Medical telemetry (2) KM (acute kidney injury): (3) Diarrhea: (4) COPD (chronic obstructive pulmonary disease): (5) Pulmonary lesion: (6) Hx of right BKA: (7) PAD (peripheral artery disease): Admission and Anticipated Discharge Date Admission Date: December 02, 2020 Supervising Physician Co-Signing Physician Notes I personally examined the patient and verified all ryder points of history and exam, discussed case, and agree with decision making with Dr Roy. Physically feeling better. Diarrhea further quite a bit. Eating well. Appears to need ongoing rehab, but strongly prefers to go home. Family and apparently even her PCP has called asking her to reconsider rehab. PT input noted Vitals noted, in general she is awake and alert pleasant no distress. HEENT normocephalic atraumatic mucous membranes moist. Breathing unlabored no accessory muscle use good effort. Skin shows no rashes no pallor or icterus. Neuro shows no focal deficits. Diarrhea/AKIprobably related to antibiotics, is improving, eating and drinking well, diarrhea is slowing down. Has no ongoing need for antibiotics. Weakness/deconditioningpatient strongly wants to go home, but with a PT evaluation showing 6 clicks of 14, it is exceedingly likely that she would have anywhere from significant to catastrophic problems at home. Agree with the team that she would be much better served at rehab for now, fortunately her family agrees with this as well. She has capacity to make her own decisions, but we are under no obligation to assist her in making decisions that seem to be reckless. Family asks that we pursue rehab. Subjective Patient feels better this morning, no longer having as many loose bowel movements. Continues to express desire to go home as "I have never been unsafe before", and does not seem to understand that there is risk with going home. Review of Systems Review of Systems: All systems reviewed & are unremarkable except as noted in Subjective Physical Exam Constitutional: WD/WN, vitals as above Eyes: PERRL, conjunctivae normal, anicteric sclerae Respiratory: normal respiratory effort, lungs clear to auscultation Auscultation: no crackles, no rales, no rhonchi and no wheezes Cardiovascular: Rate/Rhythm: regular rate and regular rhythm Heart Sounds: no gallop, no murmur and no cardiac rub Vessels: normal peripheral pulses; no JVD Extremities: no edema Gastrointestinal (Abdomen): Inspection/Auscultation: normal bowel sounds; abdomen not distended Percussion/Palpation: abdomen soft; abdomen nontender and no guarding Musculoskeletal: no cyanosis or clubbing, extremities motor strength 5/5 Skin: no rashes, warm and dry Neurologic: PERRL, EOMI, accommodation nl, no face palsy, no dysarthria CN's II-XI intact bilaterally and moves all extremities Psychiatric: Orientation: alert and oriented x 3 Results & Data Results & Data ([facility]) Vital Signs (Past 12 Hours) Vital Signs Temp Pulse Pulse Resp BP Pulse Ox 12/04/20 15:56 36.6 C 62 20 165/70 H 93 12/04/20 15:09 61 12/04/20 12:00 36.6 C 65 18 159/67 H 95 12/04/20 07:43 57 L Laboratory Results 12/04/20 12/04/20 12/04/20 Range/Units 11:30 07:32 07:32 WBC 6.66 (4.8-10.8) K/uL RBC 4.05 L (4.2-5.4) M/uL Hgb 12.4 D (12.0-16.0) g/dL Hct 37.6 (37-47) % MCV 92.8 (80-100) fL MCH 30.6 (25-34) pg MCHC 33.0 (32-36) g/dL RDW Std Deviation 49.2 H (36.4-46.3) fL RDW Coeff of Isiah 14.5 (11.5-14.5) % Plt Count 257 (130-400) K/uL MPV 11.2 H (7.4-10.4) fL Immature Gran % (Auto) 0.3 % Neut % (Auto) 57.7 % Lymph % (Auto) 22.1 % [place] % (Auto) 7.8 % Eos % (Auto) 11.9 % Baso % (Auto) 0.2 % Neut # (Auto) 3.85 (1.4-6.5) K/uL Lymph # (Auto) 1.47 (1.2-3.4) K/uL [place] # (Auto) 0.52 (0.11-0.59) K/uL Eos # (Auto) 0.79 H (0-0.5) K/uL Baso # (Auto) 0.01 (0-0.2) K/uL Immature Gran # (Auto) 0.02 (0.00-0.02) K/uL Sodium 142 (136-145) mmol/L Potassium 3.8 D (3.5-5.1) mmol/L Chloride 111 H (98-107) mmol/L Carbon Dioxide 29 (21-32) mmol/L Anion Gap 3.0 (3-11) BUN 32 H (7-18) mg/dl Creatinine 0.77 D (0.6-1.2) mg/dl Est Cr Clr Drug Dosing 49.8 ml/min Est GFR ( Amer) 85.7 Est GFR (Non-Af Amer) 74.0 BUN/Creatinine Ratio 42.2 H (10-20) Glucose 87 (70-99) mg/dl POC Glucose 105 H (70-99) mg/dl Calcium 8.9 (8.5-10.1) mg/dl 12/04/20 12/03/20 12/03/20 Range/Units 07:22 20:19 16:44 WBC (4.8-10.8) K/uL RBC (4.2-5.4) M/uL Hgb (12.0-16.0) g/dL Hct (37-47) % MCV (80-100) fL MCH (25-34) pg MCHC (32-36) g/dL RDW Std Deviation (36.4-46.3) fL RDW Coeff of Isiah (11.5-14.5) % Plt Count (130-400) K/uL MPV (7.4-10.4) fL Immature Gran % (Auto) % Neut % (Auto) % Lymph % (Auto) % [place] % (Auto) % Eos % (Auto) % Baso % (Auto) % Neut # (Auto) (1.4-6.5) K/uL Lymph # (Auto) (1.2-3.4) K/uL [place] # (Auto) (0.11-0.59) K/uL Eos # (Auto) (0-0.5) K/uL Baso # (Auto) (0-0.2) K/uL Immature Gran # (Auto) (0.00-0.02) K/uL Sodium (136-145) mmol/L Potassium (3.5-5.1) mmol/L Chloride (98-107) mmol/L Carbon Dioxide (21-32) mmol/L Anion Gap (3-11) BUN (7-18) mg/dl Creatinine (0.6-1.2) mg/dl Est Cr Clr Drug Dosing ml/min Est GFR ( Amer) Est GFR (Non-Af Amer) BUN/Creatinine Ratio (10-20) Glucose (70-99) mg/dl POC Glucose 85 138 H 110 H (70-99) mg/dl Calcium (8.5-10.1) mg/dl Medications Administered Current Inpatient Medications Acetaminophen (Acetaminophen 325 Mg Tab) 650 mg PO Q4H PRN PRN Reason: Pain or Fever Stop: 01/01/21 21:57 Last Admin: 12/04/20 00:46 Dose: 650 mg Documented by: Aspirin (Aspirin 81 Mg Ectab) 81 mg PO DAILY COUNT INCLUDES THE [facility] Stop: 01/02/21 08:59 Last Admin: 12/04/20 08:01 Dose: 81 mg Documented by: Atorvastatin Calcium (Atorvastatin 40 Mg Tab) 40 mg PO QAM COUNT INCLUDES THE [facility] Stop: 01/02/21 08:59 Last Admin: 12/04/20 08:00 Dose: 40 mg Documented by: Clopidogrel Bisulfate (Clopidogrel Bisulfate 75 Mg Tab) 75 mg PO DAILY JOSEP Stop: 01/02/21 08:59 Last Admin: 12/04/20 08:00 Dose: 75 mg Documented by: Dextrose (Dextrose 50% 50 Ml Syringe) 25 - 50 ml IV UD PRN; Protocol PRN Reason: Hypoglycemia Protocol Stop: 01/02/21 07:29 Fluticasone/Vilanterol (Fluticasone/Vilanterol 200/25mcg 14 Puffs/Inhaler) 1 puffs INH DAILY JOSEP Stop: 01/02/21 08:59 Last Admin: 12/04/20 08:01 Dose: 1 puffs Documented by: Glucagon (Glucagon For Inj 1 Mg Vial) 1 mg SQ UD PRN; Protocol PRN Reason: Hypoglycemia Protocol Stop: 01/02/21 07:29 Glucose (Glucose 10 Tabs/Tube) 4 - 8 tabs PO UD PRN; Protocol PRN Reason: Hypoglycemia Protocol Stop: 01/02/21 07:29 Glucose (Glucose 40% Gel 15 Gm Tube) 15 - 30 gm PO UD PRN; Protocol PRN Reason: Hypoglycemia Protocol Stop: 01/02/21 07:29 Heparin Sodium (Porcine) (Heparin Sod 5,000 Unit/0.5 Ml Vial) 5,000 units SQ Q12 JOSEP Stop: 01/01/21 22:59 Last Admin: 12/04/20 08:01 Dose: 5,000 units Documented by: Lactated Ringer's (Lr) 1,000 mls @ 80 mls/hr IV .[id number] COUNT INCLUDES THE [facility] Stop: 01/01/21 19:44 Last Admin: 12/04/20 08:14 Dose: 80 mls/hr Documented by: Famotidine 20 mg/ Syringe 5 mls @ 2.5 mls/min IV DAILY@0800 COUNT INCLUDES THE [facility] Stop: 01/02/21 07:59 Last Admin: 12/04/20 08:11 Dose: 2.5 mls/min Documented by: Insulin Aspart (Insulin Aspart 100 Units/Ml 3 Ml Pen) 0 units SC ACHS JOSEP Stop: 01/02/21 07:29 Last Admin: 12/04/20 12:51 Dose: 2 units Documented by: Lactobacillus Acidophilus (Lactobacillus Acidophilus 1 Gm Pack) 1 gm PO TIDM JOSEP Stop: 01/02/21 12:29 Last Admin: 12/04/20 12:52 Dose: 1 gm Documented by: Miscellaneous (Carbohydrates For Hypoglycemia ) 15 - 30 gm PO UD PRN PRN Reason: Hypoglycemia Protocol Stop: 01/02/21 07:29 Ondansetron HCl (Ondansetron 4 Mg Od Tab) 4 mg PO Q6H PRN PRN Reason: Nausea Stop: 05/24/21 22:09 Oxybutynin Chloride (Oxybutynin Chloride 5 Mg Tab) 5 mg PO BID JOSEP Stop: 01/01/21 21:57 Last Admin: 12/04/20 08:00 Dose: 5 mg Documented by: Polyethylene Glycol (Polyethylene (Miralax) 17 Gm Pack) 17 gm PO DAILY PRN PRN Reason: Constipation Stop: 01/01/21 21:57 Venlafaxine HCl (Venlafaxine Hcl Xr 75 Mg Capxr) 75 mg PO DAILY JOSEP Stop: 01/02/21 08:59 Last Admin: 12/04/20 08:00 Dose: 75 mg Documented by: Resident Activity Tracking Resident Involvement: Resident Care Provided Care Provided: Adult Hospital Medicine (1) Diarrhea Diarrhea type: unspecified type Qualified Code(s): R19.7 - Diarrhea, unspecified (2) COPD (chronic obstructive pulmonary disease) COPD type: emphysema Emphysema type: other Qualified Code(s): J43.8 - Other emphysema
--- NOTE | 2020-12-04 17:24 | Billing Data ---
Date of Service December 04, 2020 Coding Level of Care Code 68279 Subseq Hosp Care Lvl 3
[2020-12-05] MEDS: LACTATED RINGER'S 1,000 ML IV SCH ×2 (09:25→21:36)
[2020-12-05] MEDS: FAMOTIDINE 20 MG in SYRINGE 3 ML IV SCH (09:25)
[2020-12-05] MEDS: ATORVASTATIN 40 MG TAB PO SCH (09:26)
[2020-12-05] MEDS: CLOPIDOGREL BISULFATE 75 MG TAB PO SCH (09:26)
[2020-12-05] MEDS: VENLAFAXINE HCL XR 75 MG CAPXR PO SCH (09:26)
[2020-12-05] MEDS: LACTOBACILLUS ACIDOPHILUS 1 GM PACK PO SCH ×3 (09:26→16:14)
[2020-12-05] MEDS: ASPIRIN 81 MG ECTAB PO SCH (09:26)
[2020-12-05] MEDS: HEPARIN SOD 5,000 UNIT/0.5 ML VIAL SQ SCH ×2 (09:27→21:27)
[2020-12-05] MEDS: OXYBUTYNIN CHLORIDE 5 MG TAB PO SCH ×2 (09:27→21:27)
[2020-12-05] MEDS: FLUTICASONE/VILANTEROL 200/25MCG 14 PUFFS/INHALER INH SCH (09:27)
[2020-12-05] MEDS: INSULIN ASPART 100 UNITS/ML 3 ML PEN SC SCH ×4 (09:28→21:36)
[2020-12-05] MEDS ORDERED: traMADol HCL 50 MG TABLET PO STA (14:49)
--- NOTE | 2020-12-05 16:48 | Hospitalist Progress Note ---
Date of Service December 05, 2020 Assessment & Plan (1) Acute vomiting: Acacia is a 80-year-old female with a past medical history of COPD, asymptomatic carotid stenosis, peripheral artery disease status post left lower extremity vascular stenting, and right BKA who presented with approximately 5 days of nausea/vomiting and he was admitted for nausea/vomiting with KM. Nausea/vomiting/diarrhea, acute: Patient reports approximately 5-day history with unclear time course and connection to her Augmentin Last bowel movement day of admission, patient reports her diarrhea has improved and she has had not had any episodes of diarrhea today. Nausea/vomiting with resolved at this time; if watery diarrhea returns, would recommend C diff testing at that time WBC 14.64 on admission, illness versus demargination. Lactate normal, troponin normal Famotidine 20 mg daily KM vs prerenal azotemia: Suspect prerenal in the setting of GI illness Baseline creatinine less than 1, acutely elevated to 1.28 Trend BMP daily History of DM: Home glipizide held Converted to insulin aspart SSI. Goal [id number], CF 80, ratio 1:25 Glucose checks AC/at bedtime BMP daily Hx of right BKA: -No acute needs, no signs of active infection -PT/OT -Patient open to rehab at [facility] for short period in order to improve strength and ability to remain independent Peripheral artery disease: History of recent left lower extremity vascular stenting Continue DAPT History of cellulitis: Chronic, no acute worsening signs, well dressed without drainage Converted to Zosyn on admission, patient on Augmentin/doxycycline prior to admission. This was prescribed at discharge on 11/23 with intent to be continued for 10 days through 12/03. At this point this course of antibiotics course is completed. COPD (chronic obstructive pulmonary disease): -Prior daily smoker -Convert [employer] Advair to inpatient equivalent History of chronic pain: -NSAIDs held in the setting of acute GI distress as above -Tylenol every 4 hours as needed, pain adequately controlled at time of morning assessment Pulmonary nodule: -2 pulmonary nodules appreciated on CT abdomen/pelvis Liver nodule: - CT-A/PL The unenhanced liver is normal in size and heterogeneous in attenuation. Focal fatty infiltration is noted adjacent to the falciform ligament. There is no intrahepatic biliary ductal dilatation. There are 2 indeterminant hypodense hepatic lesions seen on image #39 measuring 1.4 cm and #117 measuring 1.8 cm. -Not suspect these are contributing to her current presentation, will require additional outpatient follow-up and potential imaging Transaminases normal, bilirubin normal, alkaline phosphatase normal Diet: Regular DVT prophylaxis: Heparin 5000 every 12 Disposition: Medical telemetry (2) KM (acute kidney injury): (3) Diarrhea: (4) COPD (chronic obstructive pulmonary disease): (5) Pulmonary lesion: (6) Hx of right BKA: (7) PAD (peripheral artery disease): Admission and Anticipated Discharge Date Admission Date: December 02, 2020 Supervising Physician Co-Signing Physician Notes I personally examined the patient and verified all ryder points of history and exam, discussed case, and agree with decision making with Dr Ortiz. feeling ok just upset about rehab. later case management and dr ortiz and pt's son have apparently convinced her that this is the right thing to do. Vitals noted, in general she is awake and alert pleasant no distress. HEENT normocephalic atraumatic mucous membranes moist. Breathing unlabored no accessory muscle use good effort. Skin shows no rashes no pallor or icterus. Neuro shows no focal deficits. Diarrhea/AKIprobably related to antibiotics, has improved, eating and drinking well, diarrhea is slowing down. Has no ongoing need for antibiotics. Weakness/deconditioningconsented for snf/rehab emphasis - referrals made. stable for transfer once approved Subjective Extensive discussions with patient and family today regarding continued concerns regarding functional ability at home. Patient and family agreeable to short term inpatient rehabilitation stay as a temporary step towards getting her home as she desires. Patient expresses some regret with the level of frustration she expressed yesterday given her desire to return home and remain independent. Review of Systems Review of Systems: All systems reviewed & are unremarkable except as noted in Subjective Physical Exam Constitutional: WD/WN, vitals as above Eyes: PERRL, conjunctivae normal, anicteric sclerae Respiratory: normal respiratory effort, lungs clear to auscultation Auscultation: no crackles, no rales, no rhonchi and no wheezes Cardiovascular: Rate/Rhythm: regular rate and regular rhythm Heart Sounds: no gallop, no murmur and no cardiac rub Vessels: normal peripheral pulses; no JVD Extremities: no edema Gastrointestinal (Abdomen): Inspection/Auscultation: normal bowel sounds; abdomen not distended Percussion/Palpation: abdomen soft; abdomen nontender and no guarding Musculoskeletal: no cyanosis or clubbing, extremities motor strength 5/5 Neurologic: PERRL, EOMI, accommodation nl, no face palsy, no dysarthria CN's II-XI intact bilaterally and moves all extremities Psychiatric: Orientation: alert and oriented x 3 Results & Data Results & Data ([facility]) Vital Signs (Past 12 Hours) Vital Signs Temp Pulse Pulse Resp BP BP Pulse Ox 12/05/20 15:55 36.6 C 65 19 158/71 H 95 12/05/20 11:08 36.7 C 65 20 153/66 H 97 12/05/20 08:00 63 12/05/20 07:35 37.0 C 58 L 18 193/80 H 98 Laboratory Results 12/05/20 12/05/20 12/05/20 Range/Units 16:25 11:21 07:28 POC Glucose 155 H 118 H 96 (70-99) mg/dl 12/04/20 Range/Units 20:44 POC Glucose 152 H (70-99) mg/dl Medications Administered Current Inpatient Medications Acetaminophen (Acetaminophen 325 Mg Tab) 650 mg PO Q4H PRN PRN Reason: Pain or Fever Stop: 01/01/21 21:57 Last Admin: 12/04/20 21:01 Dose: 650 mg Documented by: Aspirin (Aspirin 81 Mg Ectab) 81 mg PO DAILY JOSEP Stop: 01/02/21 08:59 Last Admin: 12/05/20 09:26 Dose: 81 mg Documented by: Atorvastatin Calcium (Atorvastatin 40 Mg Tab) 40 mg PO QAM JOSEP Stop: 01/02/21 08:59 Last Admin: 12/05/20 09:26 Dose: 40 mg Documented by: Clopidogrel Bisulfate (Clopidogrel Bisulfate 75 Mg Tab) 75 mg PO DAILY JOSEP Stop: 01/02/21 08:59 Last Admin: 12/05/20 09:26 Dose: 75 mg Documented by: Dextrose (Dextrose 50% 50 Ml Syringe) 25 - 50 ml IV UD PRN; Protocol PRN Reason: Hypoglycemia Protocol Stop: 01/02/21 07:29 Fluticasone/Vilanterol (Fluticasone/Vilanterol 200/25mcg 14 Puffs/Inhaler) 1 puffs INH DAILY JOSEP Stop: 01/02/21 08:59 Last Admin: 12/05/20 09:27 Dose: 1 puffs Documented by: Glucagon (Glucagon For Inj 1 Mg Vial) 1 mg SQ UD PRN; Protocol PRN Reason: Hypoglycemia Protocol Stop: 01/02/21 07:29 Glucose (Glucose 10 Tabs/Tube) 4 - 8 tabs PO UD PRN; Protocol PRN Reason: Hypoglycemia Protocol Stop: 01/02/21 07:29 Glucose (Glucose 40% Gel 15 Gm Tube) 15 - 30 gm PO UD PRN; Protocol PRN Reason: Hypoglycemia Protocol Stop: 01/02/21 07:29 Heparin Sodium (Porcine) (Heparin Sod 5,000 Unit/0.5 Ml Vial) 5,000 units SQ Q12 JOSEP Stop: 01/01/21 22:59 Last Admin: 12/05/20 09:27 Dose: 5,000 units Documented by: Lactated Ringer's (Lr) 1,000 mls @ 80 mls/hr IV .[id number] JOSEP Stop: 01/01/21 19:44 Last Admin: 12/05/20 09:25 Dose: 80 mls/hr Documented by: Famotidine 20 mg/ Syringe 5 mls @ 2.5 mls/min IV DAILY@0800 JOSEP Stop: 01/02/21 07:59 Last Admin: 12/05/20 09:25 Dose: 2.5 mls/min Documented by: Insulin Aspart (Insulin Aspart 100 Units/Ml 3 Ml Pen) 0 units SC ACHS JOSEP Stop: 01/02/21 07:29 Last Admin: 12/05/20 12:24 Dose: 1 units Documented by: Lactobacillus Acidophilus (Lactobacillus Acidophilus 1 Gm Pack) 1 gm PO TIDM JOSEP Stop: 01/02/21 12:29 Last Admin: 12/05/20 16:14 Dose: 1 gm Documented by: Miscellaneous (Carbohydrates For Hypoglycemia ) 15 - 30 gm PO UD PRN PRN Reason: Hypoglycemia Protocol Stop: 01/02/21 07:29 Ondansetron HCl (Ondansetron 4 Mg Od Tab) 4 mg PO Q6H PRN PRN Reason: Nausea Stop: 01/01/21 22:09 Oxybutynin Chloride (Oxybutynin Chloride 5 Mg Tab) 5 mg PO BID JOSEP Stop: 01/01/21 21:57 Last Admin: 12/05/20 09:27 Dose: 5 mg Documented by: Polyethylene Glycol (Polyethylene (Miralax) 17 Gm Pack) 17 gm PO DAILY PRN PRN Reason: Constipation Stop: 01/01/21 21:57 Venlafaxine HCl (Venlafaxine Hcl Xr 75 Mg Capxr) 75 mg PO DAILY JOSEP Stop: 01/02/21 08:59 Last Admin: 12/05/20 09:26 Dose: 75 mg Documented by: Resident Activity Tracking Resident Involvement: Resident Care Provided Care Provided: Adult Hospital Medicine (1) Diarrhea Diarrhea type: unspecified type Qualified Code(s): R19.7 - Diarrhea, unspecified (2) COPD (chronic obstructive pulmonary disease) COPD type: emphysema Emphysema type: other Qualified Code(s): J43.8 - Other emphysema
--- NOTE | 2020-12-05 17:47 | Billing Data ---
Date of Service December 05, 2020 Coding Level of Care Code 55709 Subseq Hosp Care Lvl 2
[2020-12-05] MEDS: ACETAMINOPHEN 325 MG TAB PO PRN (21:26)
[2020-12-06 07:28] LABS: Basophils # (auto) 0.01 K/uL (0-0.2); Basophils % (auto) 0.1 %; Eosinophils # (auto) 0.63 K/uL (0-0.5); Eosinophils % (auto) 8.7 %; Hematocrit (blood only) 37.5 % (37-47); Hemoglobin 12.8 g/dL (12.0-16.0); Immature Granulocytes # (auto) 0.02 K/uL (0.00-0.02); Immature Granulocytes % (auto) 0.3 %; Lymphocytes # (auto) 1.69 K/uL (1.2-3.4); Lymphocytes % (auto) 23.4 %; Mean Corpuscular Hemoglobin 30.8 pg (25-34); Mean Corpuscular Hgb Conc 34.1 g/dL (32-36); Mean Corpuscular Volume 90.1 fL (80-100); Mean Platelet Volume 11.6 fL (7.4-10.4); Monocytes # (auto) 0.67 K/uL (0.11-0.59); Monocytes % (auto) 9.3 %; Neutrophils # (auto) 4.21 K/uL (1.4-6.5); Neutrophils % (auto) 58.2 %; Platelet Count 257 K/uL (130-400); RDW Coefficient of Variation 14.3 % (11.5-14.5); RDW Standard Deviation 46.9 fL (36.4-46.3); Red Blood Count 4.16 M/uL (4.2-5.4); White Blood Count 7.23 K/uL (4.8-10.8)
[2020-12-06 07:52] LABS: BUN Creatinine Ratio 21.4 (10-20); Calcium 8.9 mg/dl (8.5-10.1); Creatinine Clr Calc Pharmacy 67.3 ml/min; Est GFR (African American) 102.9; Est GFR (Non-African American) 88.8; Potassium 3.8 mmol/L (3.5-5.1)
[2020-12-06] MEDS: FAMOTIDINE 20 MG in SYRINGE 3 ML IV SCH (08:35)
[2020-12-06] MEDS: OXYBUTYNIN CHLORIDE 5 MG TAB PO SCH ×2 (08:36→20:45)
[2020-12-06] MEDS: CLOPIDOGREL BISULFATE 75 MG TAB PO SCH (08:36)
[2020-12-06] MEDS: VENLAFAXINE HCL XR 75 MG CAPXR PO SCH (08:36)
[2020-12-06] MEDS: ATORVASTATIN 40 MG TAB PO SCH (08:37)
[2020-12-06] MEDS: ASPIRIN 81 MG ECTAB PO SCH (08:37)
[2020-12-06] MEDS: LACTOBACILLUS ACIDOPHILUS 1 GM PACK PO SCH ×3 (08:37→17:25)
[2020-12-06] MEDS: HEPARIN SOD 5,000 UNIT/0.5 ML VIAL SQ SCH ×2 (08:37→20:45)
[2020-12-06] MEDS: FLUTICASONE/VILANTEROL 200/25MCG 14 PUFFS/INHALER INH SCH (08:38)
[2020-12-06] MEDS: INSULIN ASPART 100 UNITS/ML 3 ML PEN SC SCH ×4 (08:40→21:06)
[2020-12-06] MEDS: ACETAMINOPHEN 325 MG TAB PO PRN ×2 (08:51→20:49)
[2020-12-06] MEDS: LACTATED RINGER'S 1,000 ML IV SCH ×2 (11:36→23:14)
--- NOTE | 2020-12-06 15:53 | Hospitalist Progress Note ---
Date of Service December 06, 2020 Assessment & Plan (1) Acute vomiting: Acacia is a 80-year-old female with a past medical history of COPD, asymptomatic carotid stenosis, peripheral artery disease status post left lower extremity vascular stenting, and right BKA who presented with approximately 5 days of nausea/vomiting and he was admitted for nausea/vomiting with KM. Nausea/vomiting/diarrhea, acute: Patient reports approximately 5-day history with unclear time course and connection to her Augmentin Last bowel movement day of admission, patient reports her diarrhea has improved and she has had not had any episodes of diarrhea today. Nausea/vomiting with resolved at this time; if watery diarrhea returns, would recommend C diff testing at that time Famotidine 20 mg daily KM vs prerenal azotemia: Suspect prerenal in the setting of GI illness Baseline creatinine less than 1, acutely elevated to 1.28 History of DM: Home glipizide held Converted to insulin aspart SSI. Goal [id number], CF 80, ratio 1:25 Glucose checks AC/at bedtime BMP daily Hx of right BKA: -No acute needs, no signs of active infection -PT/OT -Patient open to rehab at [facility] for short period in order to improve strength and ability to remain independent Peripheral artery disease: History of recent left lower extremity vascular stenting Continue DAPT History of cellulitis: Chronic, no acute worsening signs, well dressed without drainage Converted to Zosyn on admission, patient on Augmentin/doxycycline prior to admission. This was prescribed at discharge on 11/23 with intent to be continued for 10 days through 12/03. At this point this course of antibiotics course is completed. COPD (chronic obstructive pulmonary disease): -Prior daily smoker -Convert HOME CARE RN Advair to inpatient equivalent History of chronic pain: -NSAIDs held in the setting of acute GI distress as above -Tylenol every 4 hours as needed, pain adequately controlled at time of morning assessment Pulmonary nodule: -2 pulmonary nodules appreciated on CT abdomen/pelvis Liver nodule: - CT-A/PL The unenhanced liver is normal in size and heterogeneous in attenuation. Focal fatty infiltration is noted adjacent to the falciform ligament. There is no intrahepatic biliary ductal dilatation. There are 2 indeterminant hypodense hepatic lesions seen on image #39 measuring 1.4 cm and #117 measuring 1.8 cm. -Not suspect these are contributing to her current presentation, will require additional outpatient follow-up and potential imaging Transaminases normal, bilirubin normal, alkaline phosphatase normal Diet: Regular DVT prophylaxis: Heparin 5000 every 12 Disposition: Medical telemetry (2) KM (acute kidney injury): (3) Diarrhea: (4) COPD (chronic obstructive pulmonary disease): (5) Pulmonary lesion: (6) Hx of right BKA: (7) PAD (peripheral artery disease): Admission and Anticipated Discharge Date Admission Date: December 02, 2020 Supervising Physician Co-Signing Physician Notes I personally examined the patient and verified all ryder points of history and exam, discussed case, and agree with decision making with Dr Roy. Resting, still waiting on placement. Vitals noted, resting comfortably, no distress. HEENT normocephalic atraumatic mucous membranes moist. Breathing unlabored no accessory muscle use good effort. Skin shows no rashes no pallor or icterus. Neuro shows no focal deficits at rest. Diarrhea/AKIprobably related to antibiotics, has improved, eating and drinking well, diarrhea improved. Has no ongoing need for antibiotics. Weakness/deconditioningfor SNF/rehab emphasis once approved. Subjective Patient feels well this morning, is excited for the idea of being able to get out of the hospital and work on her strength towards finally being able to be more independent at home. Notes that she has had continued improvement in her leg size from when she first went to rehab. Willing to continue to work with therapy in order to improve her strength more and not need to stay in rehab as long as she might otherwise. Review of Systems Review of Systems: All systems reviewed & are unremarkable except as noted in Subjective Physical Exam Constitutional: WD/WN, vitals as above Eyes: PERRL, conjunctivae normal, anicteric sclerae Respiratory: normal respiratory effort, lungs clear to auscultation Auscultation: no crackles, no rales, no rhonchi and no wheezes Cardiovascular: Rate/Rhythm: regular rate and regular rhythm Heart Sounds: no gallop, no murmur and no cardiac rub Vessels: normal peripheral pulses; no JVD Extremities: no edema Gastrointestinal (Abdomen): Inspection/Auscultation: normal bowel sounds; abdomen not distended Percussion/Palpation: abdomen soft; abdomen nontender and no guarding Musculoskeletal: no cyanosis or clubbing, extremities motor strength 5/5 Neurologic: PERRL, EOMI, accommodation nl, no face palsy, no dysarthria CN's II-XI intact bilaterally and moves all extremities Psychiatric: Orientation: alert and oriented x 3 Results & Data Results & Data ([place]) Vital Signs (Past 12 Hours) Vital Signs Temp Pulse Pulse Resp BP BP Pulse Ox 12/06/20 15:28 36.8 C 67 20 138/72 96 12/06/20 11:34 36.9 C 57 L 20 132/66 94 12/06/20 10:27 49 L 12/06/20 07:33 36.8 C 60 20 188/83 H 93 12/06/20 04:01 36.5 C 61 18 170/66 H 95 Laboratory Results 12/06/20 12/06/20 12/06/20 Range/Units 11:06 07:10 06:58 WBC (4.8-10.8) K/uL RBC (4.2-5.4) M/uL Hgb (12.0-16.0) g/dL Hct (37-47) % MCV (80-100) fL MCH (25-34) pg MCHC (32-36) g/dL RDW Std Deviation (36.4-46.3) fL RDW Coeff of Isiah (11.5-14.5) % Plt Count (130-400) K/uL MPV (7.4-10.4) fL Immature Gran % (Auto) % Neut % (Auto) % Lymph % (Auto) % [place] % (Auto) % Eos % (Auto) % Baso % (Auto) % Neut # (Auto) (1.4-6.5) K/uL Lymph # (Auto) (1.2-3.4) K/uL [place] # (Auto) (0.11-0.59) K/uL Eos # (Auto) (0-0.5) K/uL Baso # (Auto) (0-0.2) K/uL Immature Gran # (Auto) (0.00-0.02) K/uL Sodium 140 (136-145) mmol/L Potassium 3.8 (3.5-5.1) mmol/L Chloride 110 H (98-107) mmol/L Carbon Dioxide 27 (21-32) mmol/L Anion Gap 4.0 (3-11) BUN 12 D (7-18) mg/dl Creatinine 0.57 L (0.6-1.2) mg/dl Est Cr Clr Drug Dosing 67.3 ml/min Est GFR ( Amer) 102.9 Est GFR (Non-Af Amer) 88.8 BUN/Creatinine Ratio 21.4 H (10-20) Glucose 87 (70-99) mg/dl POC Glucose 142 H 84 (70-99) mg/dl Calcium 8.9 (8.5-10.1) mg/dl 12/06/20 12/05/20 12/05/20 Range/Units 06:58 20:38 16:25 WBC 7.23 (4.8-10.8) K/uL RBC 4.16 L (4.2-5.4) M/uL Hgb 12.8 (12.0-16.0) g/dL Hct 37.5 (37-47) % MCV 90.1 (80-100) fL MCH 30.8 (25-34) pg MCHC 34.1 (32-36) g/dL RDW Std Deviation 46.9 H (36.4-46.3) fL RDW Coeff of Isiah 14.3 (11.5-14.5) % Plt Count 257 (130-400) K/uL MPV 11.6 H (7.4-10.4) fL Immature Gran % (Auto) 0.3 % Neut % (Auto) 58.2 % Lymph % (Auto) 23.4 % [place] % (Auto) 9.3 % Eos % (Auto) 8.7 % Baso % (Auto) 0.1 % Neut # (Auto) 4.21 (1.4-6.5) K/uL Lymph # (Auto) 1.69 (1.2-3.4) K/uL [place] # (Auto) 0.67 H (0.11-0.59) K/uL Eos # (Auto) 0.63 H (0-0.5) K/uL Baso # (Auto) 0.01 (0-0.2) K/uL Immature Gran # (Auto) 0.02 (0.00-0.02) K/uL Sodium (136-145) mmol/L Potassium (3.5-5.1) mmol/L Chloride (98-107) mmol/L Carbon Dioxide (21-32) mmol/L Anion Gap (3-11) BUN (7-18) mg/dl Creatinine (0.6-1.2) mg/dl Est Cr Clr Drug Dosing ml/min Est GFR ( Amer) Est GFR (Non-Af Amer) BUN/Creatinine Ratio (10-20) Glucose (70-99) mg/dl POC Glucose 108 H 155 H (70-99) mg/dl Calcium (8.5-10.1) mg/dl Medications Administered Current Inpatient Medications Acetaminophen (Acetaminophen 325 Mg Tab) 650 mg PO Q4H PRN PRN Reason: Pain or Fever Stop: 01/01/21 21:57 Last Admin: 12/06/20 08:51 Dose: 650 mg Documented by: Aspirin (Aspirin 81 Mg Ectab) 81 mg PO DAILY [facility] Stop: 01/02/21 08:59 Last Admin: 12/06/20 08:37 Dose: 81 mg Documented by: Atorvastatin Calcium (Atorvastatin 40 Mg Tab) 40 mg PO QAM JOSEP Stop: 01/02/21 08:59 Last Admin: 12/06/20 08:37 Dose: 40 mg Documented by: Clopidogrel Bisulfate (Clopidogrel Bisulfate 75 Mg Tab) 75 mg PO DAILY JOSEP Stop: 01/02/21 08:59 Last Admin: 12/06/20 08:36 Dose: 75 mg Documented by: Dextrose (Dextrose 50% 50 Ml Syringe) 25 - 50 ml IV UD PRN; Protocol PRN Reason: Hypoglycemia Protocol Stop: 01/02/21 07:29 Fluticasone/Vilanterol (Fluticasone/Vilanterol 200/25mcg 14 Puffs/Inhaler) 1 puffs INH DAILY JOSEP Stop: 01/02/21 08:59 Last Admin: 12/06/20 08:38 Dose: 1 puffs Documented by: Glucagon (Glucagon For Inj 1 Mg Vial) 1 mg SQ UD PRN; Protocol PRN Reason: Hypoglycemia Protocol Stop: 01/02/21 07:29 Glucose (Glucose 10 Tabs/Tube) 4 - 8 tabs PO UD PRN; Protocol PRN Reason: Hypoglycemia Protocol Stop: 01/02/21 07:29 Glucose (Glucose 40% Gel 15 Gm Tube) 15 - 30 gm PO UD PRN; Protocol PRN Reason: Hypoglycemia Protocol Stop: 01/02/21 07:29 Heparin Sodium (Porcine) (Heparin Sod 5,000 Unit/0.5 Ml Vial) 5,000 units SQ Q12 JOSEP Stop: 01/01/21 22:59 Last Admin: 12/06/20 08:37 Dose: 5,000 units Documented by: Lactated Ringer's (Lr) 1,000 mls @ 80 mls/hr IV .[id number] [facility] Stop: 01/01/21 19:44 Last Admin: 12/06/20 11:36 Dose: 80 mls/hr Documented by: Famotidine 20 mg/ Syringe 5 mls @ 2.5 mls/min IV DAILY@0800 JOSEP Stop: 01/02/21 07:59 Last Admin: 12/06/20 08:35 Dose: 2.5 mls/min Documented by: Insulin Aspart (Insulin Aspart 100 Units/Ml 3 Ml Pen) 0 units SC ACHS JOSEP Stop: 01/02/21 07:29 Last Admin: 12/06/20 12:32 Dose: 3 units Documented by: Lactobacillus Acidophilus (Lactobacillus Acidophilus 1 Gm Pack) 1 gm PO TIDM [facility] Stop: 01/02/21 12:29 Last Admin: 12/06/20 12:32 Dose: 1 gm Documented by: Miscellaneous (Carbohydrates For Hypoglycemia ) 15 - 30 gm PO UD PRN PRN Reason: Hypoglycemia Protocol Stop: 01/02/21 07:29 Ondansetron HCl (Ondansetron 4 Mg Od Tab) 4 mg PO Q6H PRN PRN Reason: Nausea Stop: 01/01/21 22:09 Oxybutynin Chloride (Oxybutynin Chloride 5 Mg Tab) 5 mg PO BID [facility] Stop: 01/01/21 21:57 Last Admin: 12/06/20 08:36 Dose: 5 mg Documented by: Polyethylene Glycol (Polyethylene (Miralax) 17 Gm Pack) 17 gm PO DAILY PRN PRN Reason: Constipation Stop: 01/01/21 21:57 Venlafaxine HCl (Venlafaxine Hcl Xr 75 Mg Capxr) 75 mg PO DAILY [facility] Stop: 01/02/21 08:59 Last Admin: 12/06/20 08:36 Dose: 75 mg Documented by: Resident Activity Tracking Resident Involvement: Resident Care Provided Care Provided: Adult Hospital Medicine (1) Diarrhea Diarrhea type: unspecified type Qualified Code(s): R19.7 - Diarrhea, unspecified (2) COPD (chronic obstructive pulmonary disease) COPD type: emphysema Emphysema type: other Qualified Code(s): J43.8 - Other emphysema
--- NOTE | 2020-12-06 16:11 | Billing Data ---
Date of Service December 06, 2020 Coding Level of Care Code 21809 Subseq Hosp Care Lvl 1
[2020-12-06] MEDS ORDERED: MELATONIN 3 MG TAB PO PRN (23:08)
[2020-12-07] MEDS: INSULIN ASPART 100 UNITS/ML 3 ML PEN SC SCH ×2 (09:51→12:49)
[2020-12-07] MEDS: ASPIRIN 81 MG ECTAB PO SCH (09:53)
[2020-12-07] MEDS: ATORVASTATIN 40 MG TAB PO SCH (09:53)
[2020-12-07] MEDS: CLOPIDOGREL BISULFATE 75 MG TAB PO SCH (09:54)
[2020-12-07] MEDS: HEPARIN SOD 5,000 UNIT/0.5 ML VIAL SQ SCH (09:54)
[2020-12-07] MEDS: VENLAFAXINE HCL XR 75 MG CAPXR PO SCH (09:55)
[2020-12-07] MEDS: LACTOBACILLUS ACIDOPHILUS 1 GM PACK PO SCH ×2 (09:55→12:46)
[2020-12-07] MEDS: OXYBUTYNIN CHLORIDE 5 MG TAB PO SCH (09:55)
[2020-12-07] MEDS: FLUTICASONE/VILANTEROL 200/25MCG 14 PUFFS/INHALER INH SCH (09:56)
[2020-12-07] MEDS: ACETAMINOPHEN 325 MG TAB PO PRN (10:24)
[2020-12-07] MEDS: FAMOTIDINE 20 MG in SYRINGE 3 ML IV SCH (10:38)
--- NOTE | 2020-12-07 12:37 | Discharge Summary ---
Date of Service December 07, 2020 Principal Diagnosis Gastritis Discharge Exam Constitutional WD/WN, vitals as above Eyes PERRL, conjunctivae normal, anicteric sclerae Respiratory normal respiratory effort, lungs clear to auscultation Auscultation: no crackles, no rales, no rhonchi and no wheezes Cardiovascular Rate/Rhythm: regular rate and regular rhythm Heart Sounds: no gallop, no murmur and no cardiac rub Vessels: normal peripheral pulses; no JVD Extremities: no edema Gastrointestinal (Abdomen) Inspection/Auscultation: normal bowel sounds; abdomen not distended Percussion/Palpation: abdomen soft; abdomen nontender and no guarding Musculoskeletal no cyanosis or clubbing, extremities motor strength 5/5 Neurologic PERRL, EOMI, accommodation nl, no face palsy, no dysarthria CN's II-XI intact bilaterally and moves all extremities Psychiatric Orientation: alert and oriented x 3 Discharge Data Allergies Allergy/AdvReac Type Severity Reaction Status Date / Time hydrogen peroxide Allergy Unknown ALLERGY Verified 12/02/20 18:13 REPORTED "PEROXIDE"-red and itchy lorazepam [From Ativan] AdvReac Mild flushed BP Verified 12/02/20 18:13 elevated , COMPLAINTS OF SKIN BURNING Consultations 12/02/20 19:21 ED Decision to Admit Stat Ordered Studies 12/02/20 16:53 CT abd pelvis wo con Stat 12/02/20 23:09 CT chest diagnostic wo con Routine Hospital Course (1) Acute vomiting: Acacia is a 80-year-old female with a past medical history of COPD, asymptomatic carotid stenosis, peripheral artery disease status post left lower extremity vascular stenting, and right BKA who presented with approximately 5 days of nausea/vomiting and he was admitted for nausea/vomiting with KM. Gastritis: -Patient reports approximately 5-day history with unclear time course and connection to her Augmentin History of DM: -Continue home glipizide Hx of right BKA: -No acute needs, no signs of active infection -continue optifoam dressing changes every other day Peripheral artery disease: History of recent left lower extremity vascular stenting Continue DAPT History of cellulitis: -Chronic, no acute worsening signs, well dressed without drainage -Antibiotic 10 day course completed -Dressing changes every other day COPD (chronic obstructive pulmonary disease): -Prior daily smoker -Continue Advair Pulmonary nodule: -2 pulmonary nodules appreciated on CT abdomen/pelvis Liver nodule: -CT: Abdomen/Pelvis demonstrating the unenhanced liver is normal in size and heterogeneous in attenuation. Focal fatty infiltration is noted adjacent to the falciform ligament. There is no intrahepatic biliary ductal dilatation. There are 2 indeterminant hypodense hepatic lesions seen on image #39 measuring 1.4 cm and #117 measuring 1.8 cm (2) KM (acute kidney injury): (3) Diarrhea: (4) COPD (chronic obstructive pulmonary disease): (5) Pulmonary lesion: (6) Hx of right BKA: (7) PAD (peripheral artery disease): Total Time Total Time Spent Total Time Spent (In Minutes): <30 Discharge Plan Discharge Items Patient Disposition: Transfer [facility] Reason For Visit: DIARRHEA,VOMITING,CELLULITIS Discharge Diagnosis: gastroenteritis Condition on Discharge: Fair Activity: Per Instructions section Non-emergency contact: Primary Care Provider Call non-emergency contact if: you have any medication questions, your symptoms worsen, your pain is concerning for you and you have a fever Follow-up/Referrals: Og Baca MD [Primary Care Provider] - Diet: Carb Consistent or DM2 and Heart Healthy Addtl Attending Provider Instructions: You were seen and admitted for concerns of persistent nausea, vomiting, and diarrhea; during this evaluation, you had resolution and control of your symptoms without continued need for treatment. As a result of these recent symptoms and the inability to have home health services to continue to provide the level of care that you need at this point in time, we have arranged for you to go to [facility] in order to improve your strength until you are able to reach the point to remain safe at home. During this time with the rehab people your continued efforts to work with them is the best way of improving your strength to get you home. Pending Studies at Discharge: No Stand-Alone Forms: My Orate, Smoking Cessation Skilled Items Patient informed of condition?: Yes DNR: No Discharge Level of Care: Acute rehab Communicable Disease: No Discharge Prognosis: Stable Lines: None Urinary Catheter: No Medications and DC Order Prescriptions: Continued ondansetron HCl [Zofran] 4 mg Tablet 4 mg PO Q6H PRN (Reason: Nausea) RF: 0 bisacodyl [Dulcolax (bisacodyl)] 10 mg Suppository 10 mg AL DAILY PRN (Reason: Constipation) RF: 0 clopidogrel 75 mg tablet 75 mg PO DAILY Qty: 30 RF: 1 furosemide 40 mg tablet 40 mg PO BID RF: 0 glipizide 5 mg tablet 5 mg PO DAILY RF: 0 oxybutynin chloride 5 mg tablet 5 mg PO BID RF: 0 meloxicam 15 mg tablet 15 mg PO DAILY RF: 0 venlafaxine 75 mg capsule,extended release 24hr 75 mg PO DAILY RF: 0 fluticasone propion-salmeterol [Advair Diskus] 250-50 mcg/dose blister with device 2 inh INHALATION DAILY RF: 0 atorvastatin 40 mg Tablet 40 mg PO QAM Qty: 30 RF: 0 aspirin [Aspirin Low Dose] 81 mg tablet,delayed release (DR/EC) 81 mg PO DAILY Qty: 30 RF: 0 attapulgite 600 mg/15 mL Suspension 600 mg PO DIRECTED PRN (Reason: gastric upset) RF: 0 bismuth subsalicylate [Pepto-Bismol] 262 mg/15 mL Suspension 524 mg PO QID PRN (Reason: gastric upset) RF: 0 Discontinued amoxicillin-pot clavulanate [Augmentin] 875-125 mg Tablet 1 tab PO BIDM 10 Days Qty: 20 RF: 0 doxycycline hyclate 100 mg Capsule 100 mg PO BID Qty: 20 RF: 0 Discharge Orders: Discharge Order (Routine); Ordered 12/07/20 Ordered By: Evin Franco/Other Patient Handouts: Nutrition for Wound Healing, High Blood Sugar (Hyperglycemia), Hypoglycemia (Low Blood Sugar), Managing Type 2 Diabetes Admission Data Admit Date/Time: 12/02/20 20:24 Attending Provider: Weston Serrano Admit Provider: Wendy Escobedo Primary Care Provider: Og Baca Other Providers: Wendy Escobedo ; Russell Gutierrez ; [place] Other Interventions: Discharge Summary Assessment (RN) Last Done: 12/07/20 14:27 Supervising Physician Co-Signing Physician Notes I personally examined the patient and verified all ryder points of history and exam, discussed case, and agree with decision making with Dr Ryo. Finally approved for placement. No new complaints. Vitals noted, resting comfortably, no distress. HEENT normocephalic atraumatic mucous membranes moist. Breathing unlabored no accessory muscle use good effort. Skin shows no rashes no pallor or icterus. Neuro shows no focal deficits at rest. Diarrhea/AKIprobably related to antibiotics, has improved, eating and drinking well, diarrhea improved. Has no ongoing need for antibiotics, so GI symptoms are unlikely to recur. Weakness/deconditioningfor SNF/rehab emphasis, stable for transfer today Resident Activity Tracking Resident Involvement: Resident Care Provided Care Provided: Adult Hospital Medicine
[2020-12-07] MEDS: LACTATED RINGER'S 1,000 ML IV SCH (12:46)
--- NOTE | 2020-12-07 16:15 | Billing Data ---
Date of Service December 07, 2020 Coding Level of Care Code D/C Day Management <30 mins
== END 2020-12-07 15:42 ==
LOC: ED 16:28 → INTOOBSV 20:24 → 2N 20:24 → SUATTDRO 20:24 → 2N 21:33

== ENCOUNTER 2021-04-28 21:06 | Observation (INO) ==
[2021-04-28] MEDS ORDERED: SODIUM CHLORIDE 0.9% 1000ML 1,000 ML IV SCH (21:15)
--- NOTE | 2021-04-28 21:21 | Emergency Department Note ---
Impression & Plan Leukocytosis, Weakness, Altered mental status ADMISSION ED Provider Note HPI: The patient is a 80-year-old female with history of peripheral vascular disease, COPD, presents to the emergency department with altered mental status. Patient had DEV stent placed in the left lower extremity secondary to peripheral vascular disease yesterday by Dr. Jha. Patient was unable to provide history on arrival, her son later arrived at the bedside and stated that the patient had a neighbor friend come to visit her today and found her in her wheelchair in an altered state. On arrival the patient is alert to verbal stimuli, she is hemodynamically stable however she is clearly confused/encephalopathic. She does not exhibit any focal deficits but is unable to give me any further history. She is able to tell me that she is in a hospital. She does not exhibit any focal motor deficits, the left lower extremity appears well perfused, she has range of motion intact in the left foot, the foot is warm on palpation. On arrival to the ED the patient is febrile at 38 C, heart rate is not elevated, patient is saturating well on 2 L nasal cannula oxygen. ROS: - Neuro: Altered mental status *10 point review systems was conducted and is otherwise negative unless stated above *Outpatient medications and allergy history reviewed PE: General: Alert to verbal stimuli, frail-appearing HEENT: Normocephalic, atraumatic, trachea midline Eyes: Extraocular eye movement is intact, no scleral erythema Pulmonary: Clear to auscultation bilaterally, no wheezing Cardio: Regular rate and rhythm GI: Abdomen is soft, nontender : No suprapubic tenderness, no flank tenderness to palpation bilaterally MSK: Status post Right-sided BKA, there is contusion to the left groin area co nsistent with recent vascular procedure, no surrounding hematoma or swelling, no active bleeding, the left lower extremity has range of motion/motor function intact, warm to palpation Skin: Dry skin to the left lower extremity below the knee consistent with venous stasis ulcers with some mild surrounding erythema, there is no crepitus to palpation, there is no purulent drainage Neuro: Alert to verbal stimuli, patient has equal bilateral lan/wan engineer strength, symmetrical facial movements are appreciated, patient responds to commands appropriately, no focal deficits Psychiatric: Cooperative Order placed for cardiac monitoring, patient noted to be in Sinus rhythm with Regular rate ED Interventions: IV fluid, IV vancomycin, IV cefepime CT head: Read per stat read radiologist - Trace amount of periventricular white matter low density consistent with chronic small vessel ischemic disease in the brain is otherwise unremarkable. No evidence of acute large vessel infarct or intracranial hemorrhage. The sinuses and mastoid air cells are normal. No skull fracture or scalp hematoma is seen. EKG: - Time:2120 - Rate:69 - Rhythm:Normal sinus rhythm - Intervals:QTC 612, otherwise Within normal limits - ST changes:No ST elevation Medical Decision Making: Patient presented to the emergency department with altered mental status from home, she was last seen normal yesterday evening. On arrival here to the ED the patient was febrile at 38 Celsius, she was otherwise hemodynamically stable wi thout tachycardia, blood pressure stable, she is saturating well on 2 L nasal cannula oxygen. Lab work shows evidence of a leukocytosis,Blood cultures were drawn in the ED, lactic acid is pending, patient was given a liter of normal saline and none further secondary to hemodynamic stability and concern for fluid overload.Chest x-ray does not show any obvious pneumonia, CT imaging of the head does not show any acute process. Urinalysis does not show any evidence of infection.Patient did have a stent placed in her left common iliac artery yesterday, the extremity appears well perfused on my examination and is warm to the touch, patient has intact motor function distally in the left lower extremity. Given the patient's leukocytosis, altered mental status, and fever, she was treated with broad-spectrum antibiotics in the ED vancomycin and cefepime. We will plan for follow-up on blood cultures, she is noted to have an elevated procalcitonin. COVID-19 testing is negative. Discussed the above findings with the patient's son at the bedside and he is in agreement for admission. Case was discussed with the on-call hospitalist, patient will be admitted to a telemetry bed for further management. At this time she is stable on 2 L nasal cannula oxygen, blood pressure stable, I do not see indication for ICU admission currently. On my reassessment the patient is more alert than on presentation, she appears to be improving from the standpoint of her mentation. Patient was admitted in improved condition. * Diagnosis: Altered mental status, leukocytosis, fever of unknown origin * Disposition: Admission Wes Reed DO Emergency Medicine Past Med/Surg History Medical History Carotid stenosis, asymptomatic Cellulitis of both lower extremities Delirium Hx of right BKA Hypokalemia PAD (peripheral artery disease) Surgical History History of right below knee amputation Social History (Updated 03/29/21 @ 14:46 by Lili Pastrana PT) Smoking Status: Never smoker Tobacco Type: Cigarettes Cigarettes Per Day: 30; Second Hand Exposure: No; Hx Alcohol Use: No Hx Substance Use: No Preferred Language: Slovenian Communication Ability: Effective Sugar Presser Required: No Beliefs That Will Affect Care: None Current Living Situation: Alone Feels Safe at Home: Yes Assistive Devices: Denture - Upper, Denture - Lower, Glasses, Prosthesis and Wheelchair Allergies Allergies Allergy/AdvReac Type Severity Reaction Status Date / Time hydrogen peroxide Allergy Unknown ALLERGY Verified 04/28/21 21:30 REPORTED "PEROXIDE"-red and itchy lorazepam [From Ativan] AdvReac Mild flushed BP Verified 04/28/21 21:30 elevated , COMPLAINTS OF SKIN BURNING Home Meds Home Medications Medication Instructions Recorded Confirmed fluticasone 250 mcg-salmeterol 50 2 inh INHALATION DAILY 11/13/20 04/28/21 mcg/dose blistr powdr for inhalation (Advair Diskus) furosemide 40 mg tablet 40 mg PO BID 11/13/20 04/28/21 glipizide 5 mg tablet 5 mg PO DAILY 11/13/20 04/28/21 oxybutynin chloride 5 mg tablet 5 mg PO BID 11/13/20 04/28/21 venlafaxine 75 mg capsule,extended 75 mg PO DAILY 11/13/20 04/28/21 release 24 hr gabapentin 300 mg capsule 300 mg PO UD 04/28/21 04/28/21 pentoxifylline 400 mg 400 mg PO TID 04/28/21 04/28/21 tablet,extended release simvastatin 20 mg tablet 20 mg PO DAILY 04/28/21 04/28/21 tramadol 100 mg tablet 100 mg PO TID PRN 04/28/21 04/28/21 Previous Rx's Medication Instructions Recorded aspirin 81 mg tablet,delayed 81 mg PO DAILY #30 tab 11/23/20 release (Aspirin Low Dose) atorvastatin 40 mg tablet 40 mg PO QAM #30 tab 11/23/20 clopidogrel 75 mg tablet 75 mg PO DAILY #30 tab 04/27/21 Results & Data (ED) Vital Signs Vital Signs - 24 hr 04/28/21 21:20 04/28/21 21:33 04/28/21 23:04 Temperature 38.0 C H Temperature Source Oral Pulse Rate 69 73 Pulse Rate [Radial] 75 Respiratory Rate 16 16 16 Respiratory Effort / Characteristics Non-Labored Non-Labored Blood Pressure 153/84 H Blood Pressure [Left Arm] 147/57 H Blood Pressure Mean 107 Blood Pressure Mean [Left Arm] 87 Pulse Oximetry 99 94 98 Oxygen Delivery Method Nasal Cannula Room Air Oxygen Flow Rate 2 Sepsis Recent Fever Within 48 Hours Yes Sepsis New/Unexplained Change in Mental Status Yes Sepsis Action Taken by Nursing No Action Required Laboratory Data Result diagrams: 04/28/21 21:30 04/28/21 21:30 Lab Results 04/28/21 04/28/21 04/28/21 Range/Units 21:30 21:30 21:30 WBC 16.19 H (4.8-10.8) K/uL RBC 4.54 (4.2-5.4) M/uL Hgb 13.2 (12.0-16.0) g/dL Hct 40.7 (37-47) % MCV 89.6 (80-100) fL MCH 29.1 (25-34) pg MCHC 32.4 (32-36) g/dL RDW Std Deviation 56.1 H (36.4-46.3) fL RDW Coeff of Isiah 17.1 H (11.5-14.5) % Plt Count 252 (130-400) K/uL MPV 11.8 H (7.4-10.4) fL Immature Gran % (Auto) 0.2 % Neut % (Auto) 88.4 % Lymph % (Auto) 4.8 % [place]gs % (Auto) 6.4 % Eos % (Auto) 0.1 % Baso % (Auto) 0.1 % Neut # (Auto) 14.33 H (1.4-6.5) K/uL Lymph # (Auto) 0.78 L (1.2-3.4) K/uL [place] # (Auto) 1.03 H (0.11-0.59) K/uL Eos # (Auto) 0.01 (0-0.5) K/uL Baso # (Auto) 0.01 (0-0.2) K/uL Immature Gran # (Auto) 0.03 H (0.00-0.02) K/uL PT 10.3 (9.0-12.0) Seconds INR 1.0 (0.9-1.1) APTT 25.4 (21.0-31.0) Seconds PTT Ratio 1.0 Sodium (136-145) mmol/L Potassium (3.5-5.1) mmol/L Chloride (98-107) mmol/L Carbon Dioxide (21-32) mmol/L Anion Gap (3-11) BUN (7-18) mg/dl Creatinine (0.6-1.2) mg/dl Est Cr Clr Drug Dosing ml/min Est GFR ( Amer) ml/min Est GFR (Non-Af Amer) ml/min BUN/Creatinine Ratio (10-20) Glucose (70-99) mg/dl Calcium (8.5-10.1) mg/dl Magnesium (1.8-2.4) mg/dl Total Bilirubin (0.2-1) mg/dl AST (15-37) U/L ALT (12-78) U/L Alkaline Phosphatase (45-117) U/L Total Creatine Kinase (26-192) U/L Total Protein (6.4-8.2) gm/dl Albumin (3.4-5.0) gm/dl Globulin (2.5-4.0) gm/dl Albumin/Globulin Ratio (0.9-2) Procalcitonin 1.45 H (0-0.5) ng/ml Urine Color Urine Appearance (Clear) Urine pH (4.5-7.5) Ur Specific [place] (1.000-1.030) Urine Protein (Negative) Urine Glucose (UA) (Negative) Urine Ketones (Negative) Urine Blood (Negative) Urine Nitrite (Negative) Urine Bilirubin (Negative) Urine Urobilinogen (Negative) Ur Leukocyte Esterase (Negative) COVID-19 Eval Order SARS-CoV-2, RNA, NAAT (NEGATIVE) 04/28/21 04/28/21 04/28/21 Range/Units 21:30 21:30 22:09 WBC (4.8-10.8) K/uL RBC (4.2-5.4) M/uL Hgb (12.0-16.0) g/dL Hct (37-47) % MCV (80-100) fL MCH (25-34) pg MCHC (32-36) g/dL RDW Std Deviation (36.4-46.3) fL RDW Coeff of Isiah (11.5-14.5) % Plt Count (130-400) K/uL MPV (7.4-10.4) fL Immature Gran % (Auto) % Neut % (Auto) % Lymph % (Auto) % [place] % (Auto) % Eos % (Auto) % Baso % (Auto) % Neut # (Auto) (1.4-6.5) K/uL Lymph # (Auto) (1.2-3.4) K/uL [place] # (Auto) (0.11-0.59) K/uL Eos # (Auto) (0-0.5) K/uL Baso # (Auto) (0-0.2) K/uL Immature Gran # (Auto) (0.00-0.02) K/uL PT (9.0-12.0) Seconds INR (0.9-1.1) APTT (21.0-31.0) Seconds PTT Ratio Sodium 145 (136-145) mmol/L Potassium 3.4 L (3.5-5.1) mmol/L Chloride 108 H (98-107) mmol/L Carbon Dioxide 27 (21-32) mmol/L Anion Gap 9.0 (3-11) BUN 26 H (7-18) mg/dl Creatinine 1.33 H (0.6-1.2) mg/dl Est Cr Clr Drug Dosing 30.8 ml/min Est GFR ( Amer) 44.3 ml/min Est GFR (Non-Af Amer) 38.2 ml/min BUN/Creatinine Ratio 19.2 (10-20) Glucose 162 H (70-99) mg/dl Calcium 8.7 (8.5-10.1) mg/dl Magnesium 2.8 H (1.8-2.4) mg/dl Total Bilirubin 0.5 (0.2-1) mg/dl AST 38 H (15-37) U/L ALT 29 (12-78) U/L Alkaline Phosphatase 174 H (45-117) U/L Total Creatine Kinase 65 (26-192) U/L Total Protein 6.6 (6.4-8.2) gm/dl Albumin 2.7 L (3.4-5.0) gm/dl Globulin 3.9 (2.5-4.0) gm/dl Albumin/Globulin Ratio 0.7 L (0.9-2) Procalcitonin (0-0.5) ng/ml Urine Color Yellow Urine Appearance Clear (Clear) Urine pH 5.5 (4.5-7.5) Ur Specific [place] 1.016 (1.000-1.030) Urine Protein Negative (Negative) Urine Glucose (UA) Negative (Negative) Urine Ketones Trace H (Negative) Urine Blood Negative (Negative) Urine Nitrite Negative (Negative) Urine Bilirubin Negative (Negative) Urine Urobilinogen Negative (Negative) Ur Leukocyte Esterase Negative (Negative) COVID-19 Eval [facility] SARS-CoV-2, RNA, NAAT (NEGATIVE) 04/28/21 Range/Units 22:09 WBC (4.8-10.8) K/uL RBC (4.2-5.4) M/uL Hgb (12.0-16.0) g/dL Hct (37-47) % MCV (80-100) fL MCH (25-34) pg MCHC (32-36) g/dL RDW Std Deviation (36.4-46.3) fL RDW Coeff of Isiah (11.5-14.5) % Plt Count (130-400) K/uL MPV (7.4-10.4) fL Immature Gran % (Auto) % Neut % (Auto) % Lymph % (Auto) % [place] % (Auto) % Eos % (Auto) % Baso % (Auto) % Neut # (Auto) (1.4-6.5) K/uL Lymph # (Auto) (1.2-3.4) K/uL [place] # (Auto) (0.11-0.59) K/uL Eos # (Auto) (0-0.5) K/uL Baso # (Auto) (0-0.2) K/uL Immature Gran # (Auto) (0.00-0.02) K/uL PT (9.0-12.0) Seconds INR (0.9-1.1) APTT (21.0-31.0) Seconds PTT Ratio Sodium (136-145) mmol/L Potassium (3.5-5.1) mmol/L Chloride (98-107) mmol/L Carbon Dioxide (21-32) mmol/L Anion Gap (3-11) BUN (7-18) mg/dl Creatinine (0.6-1.2) mg/dl Est Cr Clr Drug Dosing ml/min Est GFR ( Amer) ml/min Est GFR (Non-Af Amer) ml/min BUN/Creatinine Ratio (10-20) Glucose (70-99) mg/dl Calcium (8.5-10.1) mg/dl Magnesium (1.8-2.4) mg/dl Total Bilirubin (0.2-1) mg/dl AST (15-37) U/L ALT (12-78) U/L Alkaline Phosphatase (45-117) U/L Total Creatine Kinase (26-192) U/L Total Protein (6.4-8.2) gm/dl Albumin (3.4-5.0) gm/dl Globulin (2.5-4.0) gm/dl Albumin/Globulin Ratio (0.9-2) Procalcitonin (0-0.5) ng/ml Urine Color Urine Appearance (Clear) Urine pH (4.5-7.5) Ur Specific [place] (1.000-1.030) Urine Protein (Negative) Urine Glucose (UA) (Negative) Urine Ketones (Negative) Urine Blood (Negative) Urine Nitrite (Negative) Urine Bilirubin (Negative) Urine Urobilinogen (Negative) Ur Leukocyte Esterase (Negative) COVID-19 Eval Order SARS-CoV-2, RNA, NAAT NEGATIVE (NEGATIVE) Administered Medications Discontinued Medications Sodium Chloride (Nss 1000ml) 1,000 mls @ 999 mls/hr IV .[id number] JOSEP Stop: 04/28/21 22:15 Last Admin: 04/28/21 21:37 Dose: 999 mls/hr Documented by: [id number] Cefepime HCl 1,000 mg/ Syringe 11.3 mls @ 5.5 mls/min IV NOW STA; Protocol Stop: 04/28/21 22:49 Last Admin: 04/28/21 23:08 Dose: 5.5 mls/min Documented by: [id number] Discharge Plan Visit Data Chief Complaint: Altered Mental Status Stated Complaint: ALTERED MENTAL STATUS ED Provider: Wes Reed Discharge Problem: Leukocytosis, Weakness, Altered mental status Forms Stand Alone Forms: [facility] Prescriptions Prescriptions: No Action clopidogrel 75 mg tablet 75 mg PO DAILY Qty: 30 RF: 3 pentoxifylline 400 mg tablet extended release 400 mg PO TID RF: 0 simvastatin 20 mg tablet 20 mg PO DAILY RF: 0 gabapentin 300 mg capsule 300 mg PO UD RF: 0 tramadol 100 mg tablet 100 mg PO TID PRN (Reason: Pain) RF: 0 furosemide 40 mg tablet 40 mg PO BID RF: 0 glipizide 5 mg tablet 5 mg PO DAILY RF: 0 oxybutynin chloride 5 mg tablet 5 mg PO BID RF: 0 venlafaxine 75 mg capsule,extended release 24hr 75 mg PO DAILY RF: 0 fluticasone propion-salmeterol [Advair Diskus] 250-50 mcg/dose blister with device 2 inh INHALATION DAILY RF: 0 atorvastatin 40 mg Tablet 40 mg PO QAM Qty: 30 RF: 0 aspirin [Aspirin Low Dose] 81 mg tablet,delayed release (DR/EC) 81 mg PO DAILY Qty: 30 RF: 0 Referrals Referrals: Og Baca MD [Primary Care Provider] - Discharge Problem: Leukocytosis Qualifiers: Leukocytosis type: unspecified Qualified Code(s): D72.829 - Elevated white blood cell count, unspecified Altered mental status Qualifiers: Altered mental status type: disorientation Qualified Code(s): R41.0 - Disorientation, unspecified
[2021-04-28 21:47] LABS: Basophils # (auto) 0.01 K/uL (0-0.2); Basophils % (auto) 0.1 %; Eosinophils # (auto) 0.01 K/uL (0-0.5); Eosinophils % (auto) 0.1 %; Hematocrit (blood only) 40.7 % (37-47); Hemoglobin 13.2 g/dL (12.0-16.0); Immature Granulocytes # (auto) 0.03 K/uL (0.00-0.02); Immature Granulocytes % (auto) 0.2 %; Lymphocytes # (auto) 0.78 K/uL (1.2-3.4); Lymphocytes % (auto) 4.8 %; Mean Corpuscular Hemoglobin 29.1 pg (25-34); Mean Corpuscular Hgb Conc 32.4 g/dL (32-36); Mean Corpuscular Volume 89.6 fL (80-100); Mean Platelet Volume 11.8 fL (7.4-10.4); Monocytes # (auto) 1.03 K/uL (0.11-0.59); Monocytes % (auto) 6.4 %; Neutrophils # (auto) 14.33 K/uL (1.4-6.5); Neutrophils % (auto) 88.4 %; Platelet Count 252 K/uL (130-400); RDW Coefficient of Variation 17.1 % (11.5-14.5); RDW Standard Deviation 56.1 fL (36.4-46.3); Red Blood Count 4.54 M/uL (4.2-5.4); White Blood Count 16.19 K/uL (4.8-10.8)
[2021-04-28 21:51] LABS: Partial Thromboplastin Time 25.4 Seconds (21.0-31.0); Prothrombin Time 10.3 Seconds (9.0-12.0)
[2021-04-28 21:58] LABS: Albumin Level 2.7 gm/dl (3.4-5.0); BUN Creatinine Ratio 19.2 (10-20); Calcium 8.7 mg/dl (8.5-10.1); Creatinine Clr Calc Pharmacy 30.8 ml/min; Est GFR (African American) 44.3 ml/min; Est GFR (Non-African American) 38.2 ml/min; Magnesium 2.8 mg/dl (1.8-2.4); Potassium 3.4 mmol/L (3.5-5.1)
[2021-04-28 22:04] LABS: Albumin Globulin Ratio 0.7 (0.9-2); Bilirubin,Total 0.5 mg/dl (0.2-1); Globulin 3.9 gm/dl (2.5-4.0); Total Protein 6.6 gm/dl (6.4-8.2)
[2021-04-28 22:40] LABS: Appearance Urine Clear (Clear); Bilirubin Urine Negative (Negative); Blood Urine Negative (Negative); Color Urine Yellow; Glucose Urine UA Negative (Negative); Ketones Urine Trace (Negative); Leukocyte Esterase Urine Negative (Negative); Nitrite Urine Negative (Negative); Protein Urine Negative (Negative); Specific Gravity Urine 1.016 (1.000-1.030); Urobilinogen Urine Negative (Negative); pH Urine 5.5 (4.5-7.5)
[2021-04-28] MEDS ORDERED: VANCOMYCIN CONSULT ACTIVE PRN (22:47)
[2021-04-28] MEDS ORDERED: CEFEPIME 1,000 MG in SYRINGE 0 ML IV STA (22:47)
[2021-04-28] MEDS ORDERED: VANCOMYCIN HCL 1,000 MG in SODIUM CHLORIDE 0.9% 500 ML IV SCH (23:00)
--- NOTE | 2021-04-29 00:38 | History & Physical Report ---
Date of Service April 28, 2021 Assessment & Plan (1) Altered mental status: Plan: 80 yo F w/ pMHx. of right BKA, PAD, DM and ischemic ulcer s/p L DEV one day prior presenting with AMS. Acute metabolic encephalopathy thought to be secondary to infection with pote ntial sources left lower leg ulcer and bloodstream infection febrile to 38, WBC 16, Procalcitonin 1.45, lactate 1.5, UA w/ trace ketones otherwise nl., CXR no clear infiltrate seen CT head: no acute intracranial finding (STAT RAD) - consulted Dr. Jha with Cardiology given recent procedure - Vancomycin and Cefepime started for empiric coverage - IVF 80/hr. and holding Lasix for now - continue to evaluate fluid status - wound care consulted - follow blood cultures - follow CBC PAD s/p stenting with pulses appreciated - continue DAPT w/ ASA and Clopidogrel DM - holding oral agent - SSI orders placed Chronic pain - holding Tramadol and Gabapentin for now given AMS HLD - continue statin COPD - continue advair Code: full Diet: carb consistent with DM II DVT: SCD's (2) Ulcer of left calf: (3) COPD (chronic obstructive pulmonary disease): (4) Delirium: (5) Leukocytosis: History of Present Illness Chief Complaint: AMS Primary Care Provider: Og Baca MD Acacia Avila is a 80-year-old female with a past medical history of right BKA, PAD, DM and ischemic ulcer s/p L DEV one day prior presenting with AMS. The patient was not able to give a history, she was able to tell me her name and follow commands but was not able to tell me where she was or the date. She denied any pain but was withdrawing to pain when I touched her left foot. She was moving all extremities. I called her son Yazan who stated that she was unre sponsive which is why they brought her to the ER. She was in her wheelchair sitting and didn't know who her son was and was confused. Prior to this she had her procedure one day prior and did not have any pain, fevers, nausea, upper respiratory symptoms or other complaints. She has had confusion before that was attributed to her medications including Tramadol. She has also gotten confused and mad while in the hospital in the past. She does have some trouble with memory at baseline that the son attributes to age. Son Yazan will be at work until 3PM but can be reached after that at # Allergies Allergy/AdvReac Type Severity Reaction Status Date / Time hydrogen peroxide Allergy Unknown ALLERGY Verified 04/28/21 21:30 REPORTED "PEROXIDE"-red and itchy lorazepam [From Ativan] AdvReac Mild flushed BP Verified 04/28/21 21:30 elevated , COMPLAINTS OF SKIN BURNING Home Medications Medication Instructions Recorded Confirmed Type fluticasone 250 mcg-salmeterol 50 2 inh INHALATION DAILY 11/13/20 04/28/21 History mcg/dose blistr powdr for inhalation (Advair Diskus) furosemide 40 mg tablet 40 mg PO BID 11/13/20 04/28/21 History glipizide 5 mg tablet 5 mg PO DAILY 11/13/20 04/28/21 History oxybutynin chloride 5 mg tablet 5 mg PO BID 11/13/20 04/28/21 History venlafaxine 75 mg capsule,extended 75 mg PO DAILY 11/13/20 04/28/21 History release 24 hr aspirin 81 mg tablet,delayed 81 mg PO DAILY #30 tab 11/23/20 04/28/21 Rx release (Aspirin Low Dose) atorvastatin 40 mg tablet 40 mg PO QAM #30 tab 11/23/20 04/28/21 Rx clopidogrel 75 mg tablet 75 mg PO DAILY #30 tab 04/27/21 04/28/21 Rx gabapentin 300 mg capsule 300 mg PO UD 04/28/21 04/28/21 History pentoxifylline 400 mg 400 mg PO TID 04/28/21 04/28/21 History tablet,extended release tramadol 100 mg tablet 100 mg PO TID PRN 04/28/21 04/28/21 History Past Med/Surg History Medical History Carotid stenosis, asymptomatic Cellulitis of both lower extremities Delirium Hx of right BKA Hypokalemia PAD (peripheral artery disease) Surgical History History of right below knee amputation Social History Smoking Status: Former smoker Tobacco Type: Cigarettes Cigarettes Per Day: 1 PPD; Smoking End Date: Begining of November 2020; Second Hand Exposure: No; Do You Dip or Chew Tobacco: No; Hx Alcohol Use: No Hx Substance Use: No Preferred Language: Chinese Communication Ability: Unable Press Secretary Required: No Beliefs That Will Affect Care: None marital status: Unknown Current Living Situation: Alone How many Children do You have: 2 Feels Safe at Home: Yes Assistive Devices: Walker and Wheelchair Review of Systems Review of Systems: Unobtainable due to cognitive status Physical Exam Constitutional: + altered mental status (follows commands, answers some questions) Eyes: PERRL, conjunctivae normal, anicteric sclerae ENMT: external ear and nose normal, oropharynx normal Neck: normal visual inspection Respiratory: normal respiratory effort, lungs clear to auscultation Cardiovascular: RRR, no murmur, no edema - left lower extremity with strong Doppler pulses of the dorsalis pedis and posterior tibial Gastrointestinal (Abdomen): normal bowel sounds, soft, nontender, no hepatosplenomegaly Musculoskeletal: - surgically absent right lower leg - moving all extremities Skin: - left foot with ulceration, warmth and tenderness to palpation (looks similar to images from wound care from this month) Neurologic: + confused Psychiatric: Orientation: oriented to person; + not alert, + not oriented to place and + not oriented to time Eye Contact: + fair eye contact Affect: + depressed affect Results & Data Results & Data ([facility]) Vital Signs (Past 12 Hours) Vital Signs Temp Pulse Pulse Resp BP BP Pulse Ox 04/28/21 23:04 73 75 16 147/57 H 98 04/28/21 21:33 16 94 04/28/21 21:20 38.0 C H 69 16 153/84 H 99 CBC Results Results Complete Blood Count Results: RBC 4.14 M/uL (4.2-5.4) L 04/29/21 WBC 14.38 K/uL (4.8-10.8) H 04/29/21 Hgb 12.1 g/dL (12.0-16.0) 04/29/21 Hct 36.9 % (37-47) L 04/29/21 Plt Count 210 K/uL (130-400) 04/29/21 Chemistry (BMP) Results BMP Results: Sodium 147 mmol/L (136-145) H 04/29/21 Potassium 2.9 mmol/L (3.5-5.1) L 04/29/21 Chloride 115 mmol/L (98-107) H 04/29/21 BUN 21 mg/dl (7-18) H 04/29/21 Creatinine 0.95 mg/dl (0.6-1.2) 04/29/21 Glucose 151 mg/dl (70-99) H 04/29/21 Supervising Physician Co-Signing Physician Notes Attending addendum: I have physically seen this patient, have supervised the medical residents activities, and agree with the H&P unless as otherwise noted. Assessment and Plan: Altered mental status/acute metabolic encephalopathy- Likely secondary to left lower leg ulcer Vancomycin IV and cefepime IV per pharmacokinetic monitoring NSS + KCl 20 mEq at 80 mils per hour Follow serial CBC with differential and chemistry profile Consult wound care Consult Dr. Jha PAD status post stenting- Bilateral pulses appreciated Continue DAPT with aspirin and clopidogrel Diabetes mellitus- Place on Accu-Cheks before meals and at bedtime with NovoLog coverage per scale Hold glipizide Remaining orders and notations as noted Resident Activity Tracking Resident Involvement: Resident Care Provided Care Provided: Adult Hospital Medicine (1) Leukocytosis Leukocytosis type: unspecified Qualified Code(s): D72.829 - Elevated white blood cell count, unspecified (2) Altered mental status Altered mental status type: disorientation Qualified Code(s): R41.0 - Disorientation, unspecified (3) COPD (chronic obstructive pulmonary disease) COPD type: emphysema Emphysema type: other Qualified Code(s): J43.8 - Other emphysema
[2021-04-29] MEDS ORDERED: CARBOHYDRATES FOR HYPOGLYCEMIA PO PRN (01:54)
[2021-04-29] MEDS ORDERED: GLUCOSE 10 TABS/TUBE PO PRN (01:54)
[2021-04-29] MEDS ORDERED: GLUCOSE 40% GEL 15 GM TUBE PO PRN (01:54)
[2021-04-29] MEDS ORDERED: GLUCAGON FOR INJ 1 MG VIAL SQ PRN (01:54)
[2021-04-29] MEDS ORDERED: DEXTROSE 50% 50 ML SYRINGE IV PRN (01:54)
[2021-04-29] MEDS: LACTATED RINGER'S 1,000 ML IV SCH ×2 (02:00→12:53)
[2021-04-29] MEDS ORDERED: VANCOMYCIN HCL 1,250 MG in SODIUM CHLORIDE 0.9% 250 ML IV STA (02:21)
[2021-04-29] MEDS: INSULIN ASPART 100 UNITS/ML 3 ML PEN SC SCH ×5 (04:51→20:42)
--- NOTE | 2021-04-29 05:56 | Pharmacy Report ---
Pharmacy Abx Dose Short Note - Date of Service April 29, 2021 - Assessment & Plan Assessment 80 year old F receiving Vancomycin and Cefepime for empiric treatment of possible cellulitis * PMHx significant for R BKA, T2DM and PAD. * She underwent an angiogram on 04/27/21 with vascular surgery. * Presents with AMS. Febrile at 38oC upon admission. Leukocytosis of 16.2k. Procalcitonin elevated at 1.45. CrCl adjusted based on previous R BKA. * Blood cultures and imaging are pending. 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 Plan Vancomycin * Loading Dose: 1250 mg (20 mg/kg) IV x 1 * Maintenance Dose: 1000 mg (17 mg/kg) IV every 24 hours * Based on previous admission data * Goal trough level: ~ 15 mcg/mL * No level will be ordered unless therapy is to extend beyond 48 hours Cefepime * Not a pharmacy consult * Goal dose of 2 g IV every 8 hours but interval adjusted to every 24 hours given CrCl less than 30 mL/min Pharmacy will continue to follow and will adjust dose/frequency as necessary. Thank you.
--- NOTE | 2021-04-29 07:22 | XRay Report ---
XR chest 1V portable CLINICAL HISTORY: SEPSIS COMPARISON STUDY: December 02, 2020 FINDINGS: No pneumothorax. No pleural effusion. No large infiltrates or consolidative lesions are seen. Right hemidiaphragm is slightly elevated whic h is stable since prior. Mild chronic bibasilar scarring scattered atelectasis is unchanged since gomez or. Cardiomediastinal silhouette is within normal limits in size. No significant pulmonary vascular congestion.. Aorta is calcified. Osseous structures: Osteopenia. Degenerative changes of the spine. IMPRESSION: 1. No large infiltrates or consolidative lesions. ACT 112: Negative or not required by law. The above report was generated using voice recognition software. It may contain grammatical, syntax o r spelling errors. Electronically signed by: Sara Puente DO 04/29/2021 7:20 AM
--- NOTE | 2021-04-29 08:07 | CT Scan Report ---
CT head/brain wo con CLINICAL HISTORY: AMS COMPARISON STUDY: No previous studies for comparison. TECHNIQUE: Axial CT of the brain is performed from the vertex to the skull base. IV contrast was not administered for this examination. A dose lowering technique was utilized adhering to the principles of ALARA. CT DOSE: 1074.96 mGy.cm FINDINGS: Limited exam due to motion and beam hardening artifact. No intra or extra-axial mass lesions are visualized. There is no CT evidence of acute cortical infarc tion. There is no evidence of midline shift. There is no acute hemorrhage. No definite acute depress ed calvarial fractures are visualized, however evaluation is suboptimal due to motion artifact. There are patchy white matter hypodensities likely on a small vessel basis. There is no evidence of pathologic ventricular dilatation. There is mild mucosal thickening of the left maxillary sinus wall. IMPRESSION: No acute intracranial hemorrhage, no midline shift or space occupying lesions. No definite acute depressed skull fracture. Minimal mucosal thickening of the left maxillary sinus which might represent inflammatory process/sin usitis in appropriate clinical settings. Suboptimal exam due to motion artifact ACT 112: Negative or not required by law. The above report was generated using voice recognition software. It may contain grammatical, syntax o r spelling errors. Electronically signed by: Sara Puente DO 04/29/2021 8:06 AM
[2021-04-29] MEDS: OXYBUTYNIN CHLORIDE 5 MG TAB PO SCH ×2 (08:28→20:09)
[2021-04-29] MEDS: ASPIRIN 81 MG ECTAB PO SCH (08:28)
[2021-04-29] MEDS: FLUTICASONE/VILANTEROL 200/25MCG 14 PUFFS/INHALER INH SCH (08:28)
[2021-04-29] MEDS: CLOPIDOGREL BISULFATE 75 MG TAB PO SCH (08:29)
[2021-04-29] MEDS: ATORVASTATIN 40 MG TAB PO SCH (08:29)
[2021-04-29] MEDS: VENLAFAXINE HCL XR 75 MG CAPXR PO SCH (08:29)
[2021-04-29 08:30] LABS: Basophils # (auto) 0.01 K/uL (0-0.2); Basophils % (auto) 0.1 %; Hematocrit (blood only) 37.9 % (37-47); Hemoglobin 12.1 g/dL (12.0-16.0); Immature Granulocytes # (auto) 0.03 K/uL (0.00-0.02); Immature Granulocytes % (auto) 0.2 %; Lymphocytes # (auto) 1.01 K/uL (1.2-3.4); Lymphocytes % (auto) 7.7 %; Mean Corpuscular Hemoglobin 28.7 pg (25-34); Mean Corpuscular Hgb Conc 31.9 g/dL (32-36); Mean Corpuscular Volume 89.8 fL (80-100); Mean Platelet Volume 11.5 fL (7.4-10.4); Monocytes # (auto) 1.15 K/uL (0.11-0.59); Monocytes % (auto) 8.7 %; Neutrophils # (auto) 10.97 K/uL (1.4-6.5); Neutrophils % (auto) 83.3 %; Platelet Count 213 K/uL (130-400); RDW Coefficient of Variation 17.3 % (11.5-14.5); RDW Standard Deviation 56.8 fL (36.4-46.3); Red Blood Count 4.22 M/uL (4.2-5.4); White Blood Count 13.17 K/uL (4.8-10.8)
[2021-04-29 08:54] LABS: BUN Creatinine Ratio 21.9 (10-20); Calcium 8.5 mg/dl (8.5-10.1); Creatinine Clr Calc Pharmacy 40.4 ml/min; Est GFR (African American) 66.5 ml/min; Est GFR (Non-African American) 57.4 ml/min; Potassium 2.9 mmol/L (3.5-5.1)
[2021-04-29] MEDS ORDERED: SIMVASTATIN 20 MG TAB PO SCH (09:00)
--- NOTE | 2021-04-29 09:24 | Hospitalist Progress Note ---
Date of Service April 29, 2021 Assessment & Plan (1) Altered mental status: Plan: 80 yo F PMH DM2, significant vascular disease- PAD, venous insufficiency, right BKA, also recurrent chronic cellulitis (including MRSA), ischemic ulcer s/p L DEV stent on 04/27 admitted for AMS. 1) AMS -AMS most likely due to sepsis given elevated WBCs, procalcitonin, febrile. Infectious source most likely chronic left lower leg ulcer with cellulitis, possibly bloodstream infection. Acute illness may have contribution from stress response from recent endovascular procedure exacerbating chronic infection -Negative CXR, UA, CT Head -Ongoing IVF, continue IV vancomycin and cefepime. Slight improvement noted with downtrending WBCs and afebrile since abx initiation -BCx pending -Cardiology consulted for recent procedure -Wound care nurse consulted 2) Peripheral vascular disease -Continue ASA, Plavix 3) DM2 -ISS -Oral agents held 4) COPD -Continue advair Code: full Diet: carb consistent with DM II DVT: SCD's (2) Ulcer of left calf: (3) COPD (chronic obstructive pulmonary disease): (4) Delirium: (5) Leukocytosis: Admission and Anticipated Discharge Date Admission Date: April 29, 2021 Supervising Physician Co-Signing Physician Notes I personally examined the patient and verified all ryder points of history and exa m, discussed case, and agree with decision making with Dr Hernandez Having a lot of diarrhea. Foot still painful. Much more awake than earlier. Vitals noted, in general she is awake although still a bit slow to respond. No distress but does appear quite fatigued. Breathing unlabored no accessory muscle use good effort. Abdomen is soft may be mild left lower quadrant tenderness but no guarding rebound or rigidity nondistended. Right lower extremity absent, left lower extremity has dull erythema entirely below the line of demarcation drawn on admission, but is still exquisitely tender. No pu rulence no crepitus. Septic encephalopathyappears to have been due to cellulitis. Fortunately improving. Left lower extremity cellulitisin the setting of rather severe vascular insufficiency. Continue vancomycin and cefepime, continue supportive care. Does fortunately appear to be improving. Diarrheacheck stool for C. difficile, treat if positive, if not start probiotics to help with antibiotic associated diarrhea. DVT proph - heparin SQ Subjective Pt somnolent, minimally responsive. Did not appear to be in marked distress. Review of Systems Review of Systems: Limited by level of consciousness Physical Exam Constitutional: + ill appearing and + lethargic; no acute distress ENMT: Dry mucous membranes Neck: normal visual inspection Respiratory: Auscultation: lungs clear to auscultation bilaterally; no crackles and no wheezes Cardiovascular: RRR, no murmur, no edema Peripheral pulses intact Gastrointestinal (Abdomen): +Mild tenderness to epigastrium, nondistended, no guarding or rebound. Musculoskeletal: Surgically absent R lower extremity below knee Skin: Left foot to distal calf erythema, warmth, swelling and ulceration without drainage. Stasis dermatitis noted. Neurologic: Reactive to noxious stimuli, turns head to voice, unable to assess AO status Results & Data Results & Data ([facility]) Vital Signs (Past 12 Hours) Vital Signs Temp Pulse Pulse Pulse Resp BP Pulse Ox 04/29/21 07:54 36.9 C 65 18 133/50 L 96 04/29/21 07:28 65 04/29/21 02:41 37.3 C 67 18 135/63 93 04/29/21 02:37 72 04/29/21 02:30 37.3 C 67 18 135/63 93 04/29/21 00:34 75 16 178/64 H 96 04/29/21 00:10 96 04/28/21 23:04 73 75 16 147/57 H 98 04/28/21 21:33 16 94 Resident Activity Tracking Resident Involvement: Resident Care Provided Care Provided: Adult Hospital Medicine (1) Altered mental status Altered mental status type: disorientation Qualified Code(s): R41.0 - Disorientation, unspecified
--- NOTE | 2021-04-29 10:40 | Ultrasound Report ---
US venous doppler LE LT CLINICAL HISTORY: leg swelling COMPARISON STUDY: September 29, 2020 FINDINGS: Real-time and color flow Doppler imaging were performed. Flow was seen within the left femo ral, popliteal and calf veins with no intraluminal thrombus demonstrated. The saphenous vein is paten t. Diffuse soft tissue edema is seen slightly limiting evaluation. Also lack of patient cooperation and bandage in groin limits exam. IMPRESSION: No evidence of deep venous thrombosis within left lower extremity. ACT 112: Negative or not required by law. The above report was generated using voice recognition software. It may contain grammatical, syntax o r spelling errors. Electronically signed by: Sara Puente DO 04/29/2021 10:39 AM
[2021-04-29] MEDS: POTASSIUM CHLORIDE / WTR 10 MEQ/100 ML PLCT IV SCH ×4 (12:04→15:28)
[2021-04-29 15:02] LABS: Basophils # (auto) 0.01 K/uL (0-0.2); Basophils % (auto) 0.1 %; Hematocrit (blood only) 36.9 % (37-47); Hemoglobin 12.1 g/dL (12.0-16.0); Immature Granulocytes # (auto) 0.03 K/uL (0.00-0.02); Immature Granulocytes % (auto) 0.2 %; Lymphocytes # (auto) 0.94 K/uL (1.2-3.4); Lymphocytes % (auto) 6.5 %; Mean Corpuscular Hemoglobin 29.2 pg (25-34); Mean Corpuscular Volume 89.1 fL (80-100); Mean Platelet Volume 11.5 fL (7.4-10.4); Monocytes # (auto) 1.04 K/uL (0.11-0.59); Monocytes % (auto) 7.2 %; Neutrophils # (auto) 12.36 K/uL (1.4-6.5); Platelet Count 210 K/uL (130-400); RDW Coefficient of Variation 17.2 % (11.5-14.5); RDW Standard Deviation 56.1 fL (36.4-46.3); Red Blood Count 4.14 M/uL (4.2-5.4); White Blood Count 14.38 K/uL (4.8-10.8)
[2021-04-29 15:10] LABS: Mean Corpuscular Hgb Conc 32.8 g/dL (32-36)
--- NOTE | 2021-04-29 16:00 | Billing Data ---
Date of Service April 29, 2021 Coding Level of Care Code 27645 Subseq Hosp Care Lvl 3
[2021-04-29] MEDS ORDERED: ONDANSETRON 4 MG OD TAB PO PRN (17:13)
--- NOTE | 2021-04-29 19:27 | Billing Data ---
Date of Service April 29, 2021 Coding Level of Care Code 23869 Initial Inpt Care Lvl 3
[2021-04-29] MEDS ORDERED: traMADol HCL 50 MG TABLET PO PRN (19:41)
[2021-04-29] MEDS: HEPARIN SOD 5,000 UNIT/0.5 ML VIAL SQ SCH (20:09)
[2021-04-29] MEDS ORDERED: PROCHLORPERAZINE 5 MG in SYRINGE 4 ML IV SCH (20:15)
--- NOTE | 2021-04-29 20:34 | Electrocardiogram Report ---
Test Reason : Blood Pressure : / mmHG Vent. Rate : 069 BPM Atrial Rate : 069 BPM P-R Int : 122 ms QRS Dur : 120 ms QT Int : 572 ms P-R-T Axes : 074 -50 027 degrees QTc Int : 612 ms Normal sinus rhythm Possible Left atrial enlargement Right bundle branch block Left anterior fascicular block Bifascicular block Septal infarct , age undetermined Possible Lateral infarct (cited on or before 13-NOV-2020) Abnormal ECG When compared with ECG of 02-DEC-2020 17:18, Nonspecific T wave abnormality now evident in Inferior leads Nonspecific T wave abnormality, worse in Anterolateral leads QT has lengthened Confirmed by Milo Wheatley ([id number]) on 04/29/2021 8:34:23 PM Referred By: REFERRED SELF Confirmed By:Milo Wheatley
[2021-04-29] MEDS ORDERED: CEFEPIME 2,000 MG in SYRINGE 0 ML IV SCH (23:00)
[2021-04-30] MEDS: LACTATED RINGER'S 1,000 ML IV SCH ×2 (01:09→14:00)
[2021-04-30] MEDS: VANCOMYCIN HCL 1,000 MG in SODIUM CHLORIDE 0.9% 250 ML IV SCH (02:06)
--- NOTE | 2021-04-30 07:17 | Hospitalist Progress Note ---
Date of Service April 30, 2021 Assessment & Plan (1) Altered mental status: Plan: 80 yo F PMH DM2, significant vascular disease- PAD, venous insufficiency, right BKA, also recurrent chronic cellulitis (including MRSA), ischemic ulcer s/p L DEV stent on 04/27 admitted for AMS. 1) Metabolic Encephalopathy sec to leg cellulitis sec to leg wound -AMS likely secondary to sepsis given elevated WBCs, procalcitonin, febrile. Infectious source most likely chronic left lower leg ulcer with cellulitis. -Negative CXR, UA, CT Head -BCx pending, no growth at 24hr -Ongoing IVF -LR 80ml/hr, continue IV vancomycin and cefepime. WBC 10.06 <-- 14.38 -Wound care nurse consulted, will change dressing [id number] -as of 04/30 patient is AAOx3 2) Diarrhea -ongoing since 04/29 3pm, digniguard placed, stool culture ordered -c. diff negative, started on probiotic -improved on 04/30 less stool volume, if it continues to improve overnight we can remove the digniguard. -Sahu in place due to lower back skin irritation from diarrhea. Remove per nursing protocol. 3) PAD -Vascular Medicine consulted for recent procedure, no access site complications no need for further vascular testing at this time. -Continue ASA, Plavix, lipitor 4) DM2 -novolog -glucose 105 5) COPD -Continue breo ellipta -Chronic tobacco use - not interested in quitting. 6) Pain -continue venlafaxin -continue PRN tramadol Acute Renal Failure POA Resolved with IV hydration. FENa: LR at 80ml/hr, carb consistent diet Code Status: full DVT PPX: heparin PT/OT: seen by PT Case Management: [facility] Dispo: Dana Billings Do PGY 1, FCM (2) COPD (chronic obstructive pulmonary disease): (3) Diarrhea: (4) Cellulitis: (5) PAD (peripheral artery disease): (6) Diabetes: Admission and Anticipated Discharge Date Admission Date: April 29, 2021 Supervising Physician Co-Signing Physician Notes Resident Physician Supervision Note: I independently interviewed and examined the patient and verified the ryder history and physical, reviewed labs and image studies and agree with resident Dr. Villatoro findings and care plan. Subjective 80yo Female admitted for AMS sepsis and cellulitis seen at bedside, doing well. She is awake, pleasant and cooperative, AAOx3. She has slept well, good appetite. She remembers the events that brought her to the hospital, knows she was altered mentally and her son brought her to the ED. At this time she has no acute complaints, would like to go home after her hospitalization. She currently has a sahu and a digniguard, placed since 04/29. Patient states she lives alone, has a right leg prosthesis that she can walk a few steps in but primarily uses a wheelchair. She manages her own medications. Her sons try to see her during the weekends. Review of Systems Review of Systems: Negative fever chills Negative headache dizziness Negative chest pain palpitations SOB Negative nausea vomitting constipation Negative numbness tingling rash swelling Physical Exam Physical Exam: General: Well appearing, age appropriate Heart: RRR, +S1 S2, no murmurs/gallops/rubs Lungs: b/l wheeze Abd: soft, NT/ND, +BS Extremities: right BKA, left foot multiple scabs but no erythema or tenderness. Marker for previous extend of cellulitis noted, no erythema past that line Results & Data Results & Data ([facility]) Vital Signs (Past 12 Hours) Vital Signs Temp Pulse Pulse Resp BP Pulse Ox 04/30/21 04:01 36.7 C 57 L 16 117/62 96 04/29/21 22:40 37.0 C 63 18 106/56 L 95 04/29/21 22:30 85 L 04/29/21 22:20 68 04/29/21 19:31 36.5 C 63 20 124/66 90 Laboratory Results 04/30/21 04/30/21 04/30/21 Range/Units 08:14 08:14 07:29 WBC 10.06 (4.8-10.8) K/uL RBC 4.06 L (4.2-5.4) M/uL Hgb 11.7 L (12.0-16.0) g/dL Hct 36.2 L (37-47) % MCV 89.2 (80-100) fL MCH 28.8 (25-34) pg MCHC 32.3 (32-36) g/dL RDW Std Deviation 56.1 H (36.4-46.3) fL RDW Coeff of Isiah 17.1 H (11.5-14.5) % Plt Count 200 (130-400) K/uL MPV 11.5 H (7.4-10.4) fL Immature Gran % (Auto) 0.4 % Neut % (Auto) 78.8 % Lymph % (Auto) 11.9 % [place] % (Auto) 7.5 % Eos % (Auto) 1.3 % Baso % (Auto) 0.1 % Neut # (Auto) 7.93 H (1.4-6.5) K/uL Lymph # (Auto) 1.20 (1.2-3.4) K/uL [place] # (Auto) 0.75 H (0.11-0.59) K/uL Eos # (Auto) 0.13 (0-0.5) K/uL Baso # (Auto) 0.01 (0-0.2) K/uL Immature Gran # (Auto) 0.04 H (0.00-0.02) K/uL Sodium 143 (136-145) mmol/L Potassium 3.9 D (3.5-5.1) mmol/L Chloride 110 H (98-107) mmol/L Carbon Dioxide 29 (21-32) mmol/L Anion Gap 4.0 (3-11) BUN 13 (7-18) mg/dl Creatinine 0.90 (0.6-1.2) mg/dl Est Cr Clr Drug Dosing 42.6 ml/min Est GFR ( Amer) 71.0 ml/min Est GFR (Non-Af Amer) 61.2 ml/min BUN/Creatinine Ratio 14.9 (10-20) Glucose 105 H (70-99) mg/dl POC Glucose 139 H (70-99) mg/dl Calcium 8.7 (8.5-10.1) mg/dl Stl C. diff Tox B Gene (Neg) 04/29/21 04/29/21 04/29/21 Range/Units 21:00 19:56 16:26 WBC (4.8-10.8) K/uL RBC (4.2-5.4) M/uL Hgb (12.0-16.0) g/dL Hct (37-47) % MCV (80-100) fL MCH (25-34) pg MCHC (32-36) g/dL RDW Std Deviation (36.4-46.3) fL RDW Coeff of Isiah (11.5-14.5) % Plt Count (130-400) K/uL MPV (7.4-10.4) fL Immature Gran % (Auto) % Neut % (Auto) % Lymph % (Auto) % [place] % (Auto) % Eos % (Auto) % Baso % (Auto) % Neut # (Auto) (1.4-6.5) K/uL Lymph # (Auto) (1.2-3.4) K/uL [place] # (Auto) (0.11-0.59) K/uL Eos # (Auto) (0-0.5) K/uL Baso # (Auto) (0-0.2) K/uL Immature Gran # (Auto) (0.00-0.02) K/uL Sodium (136-145) mmol/L Potassium (3.5-5.1) mmol/L Chloride (98-107) mmol/L Carbon Dioxide (21-32) mmol/L Anion Gap (3-11) BUN (7-18) mg/dl Creatinine (0.6-1.2) mg/dl Est Cr Clr Drug Dosing ml/min Est GFR ( Amer) ml/min Est GFR (Non-Af Amer) ml/min BUN/Creatinine Ratio (10-20) Glucose (70-99) mg/dl POC Glucose 143 H 165 H (70-99) mg/dl Calcium (8.5-10.1) mg/dl Stl C. diff Tox B Gene Negative Cdiff Gene (Neg) 04/29/21 04/29/21 Range/Units 14:57 11:39 WBC 14.38 H (4.8-10.8) K/uL RBC 4.14 L (4.2-5.4) M/uL Hgb 12.1 (12.0-16.0) g/dL Hct 36.9 L (37-47) % MCV 89.1 (80-100) fL MCH 29.2 (25-34) pg MCHC 32.8 (32-36) g/dL RDW Std Deviation 56.1 H (36.4-46.3) fL RDW Coeff of Isiah 17.2 H (11.5-14.5) % Plt Count 210 (130-400) K/uL MPV 11.5 H (7.4-10.4) fL Immature Gran % (Auto) 0.2 % Neut % (Auto) 86.0 % Lymph % (Auto) 6.5 % [place] % (Auto) 7.2 % Eos % (Auto) 0.0 % Baso % (Auto) 0.1 % Neut # (Auto) 12.36 H (1.4-6.5) K/uL Lymph # (Auto) 0.94 L (1.2-3.4) K/uL [place] # (Auto) 1.04 H (0.11-0.59) K/uL Eos # (Auto) 0.00 (0-0.5) K/uL Baso # (Auto) 0.01 (0-0.2) K/uL Immature Gran # (Auto) 0.03 H (0.00-0.02) K/uL Sodium (136-145) mmol/L Potassium (3.5-5.1) mmol/L Chloride (98-107) mmol/L Carbon Dioxide (21-32) mmol/L Anion Gap (3-11) BUN (7-18) mg/dl Creatinine (0.6-1.2) mg/dl Est Cr Clr Drug Dosing ml/min Est GFR ( Amer) ml/min Est GFR (Non-Af Amer) ml/min BUN/Creatinine Ratio (10-20) Glucose (70-99) mg/dl POC Glucose 152 H (70-99) mg/dl Calcium (8.5-10.1) mg/dl Stl C. diff Tox B Gene (Neg) Diagnostic Findings Impressions Chest X-Ray 04/28/21 21:15 XR chest 1V portable CLINICAL HISTORY: SEPSIS COMPARISON STUDY: December 02, 2020 FINDINGS: No pneumothorax. No pleural effusion. No large infiltrates or consolidative lesions are seen. Right hemidiaphragm is slightly elevated which is stable since prior. Mild chronic bibasilar scarring scattered atelectasis is unchanged since prior. Cardiomediastinal silhouette is within normal limits in size. No significant pulmonary vascular congestion.. Aorta is calcified. Osseous structures: Osteopenia. Degenerative changes of the spine. IMPRESSION: 1. No large infiltrates or consolidative lesions. ACT 112: Negative or not required by law. The above report was generated using voice recognition software. It may contain grammatical, syntax or spelling errors. Electronically signed by: Sara Puente DO 04/29/2021 7:[address] 04/28/21 21:16 CT head/brain wo con CLINICAL HISTORY: AMS COMPARISON STUDY: No previous studies for comparison. TECHNIQUE: Axial CT of the brain is performed from the vertex to the skull base. IV contrast was not administered for this examination. A dose lowering technique was utilized adhering to the principles of ALARA. CT DOSE: 1074.96 mGy.cm FINDINGS: Limited exam due to motion and beam hardening artifact. No intra or extra-axial mass lesions are visualized. There is no CT evidence of acute cortical infarction. There is no evidence of midline shift. There is no acute hemorrhage. No definite acute depressed calvarial fractures are visua lized, however evaluation is suboptimal due to motion artifact. There are patchy white matter hypodensities likely on a small vessel basis. There is no evidence of pathologic ventricular dilatation. There is mild mucosal thickening of the left maxillary sinus wall. IMPRESSION: No acute intracranial hemorrhage, no midline shift or space occupying lesions. No definite acute depressed skull fracture. Minimal mucosal thickening of the left maxillary sinus which might represent inflammatory process/sinusitis in appropriate clinical settings. Suboptimal exam due to motion artifact ACT 112: Negative or not required by law. The above report was generated using voice recognition software. It may contain grammatical, syntax or spelling errors. Electronically signed by: Sara Puente DO 04/29/2021 8:06 AM Venous Doppler Study 04/29/21 01:54 US venous doppler LE LT CLINICAL HISTORY: leg swelling COMPARISON STUDY: September 29, 2020 FINDINGS: Real-time and color flow Doppler imaging were performed. Flow was seen within the left femoral, popliteal and calf veins with no intraluminal thrombus demonstrated. The saphenous vein is patent. Diffuse soft tissue edema is seen slightly limiting evaluation. Also lack of patient cooperation and bandage in groin limits exam. IMPRESSION: No evidence of deep venous thrombosis within left lower extremity. ACT 112: Negative or not required by law. The above report was generated using voice recognition software. It may contain grammatical, syntax or spelling errors. Electronically signed by: Sara Puente DO 04/29/2021 10:39 AM Medications Administered Current Inpatient Medications Aspirin (Aspirin 81 Mg Ectab) 81 mg PO DAILY JOSEP Stop: 05/29/21 08:59 Last Admin: 04/30/21 07:56 Dose: 81 mg Documented by: Atorvastatin Calcium (Atorvastatin 40 Mg Tab) 40 mg PO QAM [facility] Stop: 05/29/21 08:59 Last Admin: 04/30/21 07:56 Dose: 40 mg Documented by: Clopidogrel Bisulfate (Clopidogrel Bisulfate 75 Mg Tab) 75 mg PO DAILY JOSEP Stop: 05/29/21 08:59 Last Admin: 04/30/21 07:55 Dose: 75 mg Documented by: Dextrose (Dextrose 50% 50 Ml Syringe) 25 - 50 ml IV UD PRN; Protocol PRN Reason: Hypoglycemia Protocol Stop: 05/29/21 01:53 Fluticasone/Vilanterol (Fluticasone/Vilanterol 200/25mcg 14 Puffs/Inhaler) 1 puffs INH DAILY JOSEP; Protocol Stop: 05/29/21 08:59 Last Admin: 04/30/21 07:57 Dose: 1 puffs Documented by: Glucagon (Glucagon For Inj 1 Mg Vial) 1 mg SQ UD PRN; Protocol PRN Reason: Hypoglycemia Protocol Stop: 05/29/21 01:53 Glucose (Glucose 10 Tabs/Tube) 4 - 8 tabs PO UD PRN; Protocol PRN Reason: Hypoglycemia Protocol Stop: 05/29/21 01:53 Glucose (Glucose 40% Gel 15 Gm Tube) 15 - 30 gm PO UD PRN; Protocol PRN Reason: Hypoglycemia Protocol Stop: 05/29/21 01:53 Heparin Sodium (Porcine) (Heparin Sod 5,000 Unit/0.5 Ml Vial) 5,000 units SQ Q12 JOSEP Stop: 05/29/21 20:59 Last Admin: 04/30/21 07:57 Dose: 5,000 units Documented by: Cefepime HCl 2,000 mg/ Syringe 20 mls @ 5 mls/min IV Q24H JOSEP; Protocol Stop: 05/01/21 22:59 Last Admin: 04/29/21 22:20 Dose: 5 mls/min Documented by: Lactated Ringer's (Lr) 1,000 mls @ 80 mls/hr IV .[id number] [facility] Stop: 05/29/21 01:53 Last Admin: 04/30/21 01:09 Dose: 80 mls/hr Documented by: Vancomycin HCl 1,000 mg/ (Sodium Chloride) 270 mls @ 200 mls/hr IV Q24H [facility]; Protocol Stop: 05/02/21 02:59 Last Infusion: 04/30/21 03:30 Dose: Infused Documented by: Insulin Aspart (Insulin Aspart 100 Units/Ml 3 Ml Pen) 0 units SC ACHS JOSEP Stop: 05/29/21 02:59 Last Admin: 04/30/21 08:49 Dose: Not Given Documented by: Miconazole Nitrate (Miconazole Nitrate Powder 43 Gm) 1 appln EXT PRN PRN PRN Reason: Affected Skin Folds Stop: 05/30/21 09:14 Miscellaneous (Carbohydrates For Hypoglycemia ) 15 - 30 gm PO UD PRN PRN Reason: Hypoglycemia Protocol Stop: 05/29/21 01:53 Miscellaneous Information (Vancomycin Consult Active) 1 ea N/A UD PRN PRN Reason: Consult Stop: 05/28/21 22:46 Ondansetron HCl (Ondansetron 4 Mg Od Tab) 4 mg PO Q6H PRN PRN Reason: Nausea Stop: 05/29/21 17:12 Last Admin: 04/29/21 17:34 Dose: 4 mg Documented by: Oxybutynin Chloride (Oxybutynin Chloride 5 Mg Tab) 5 mg PO BID JOSEP Stop: 05/29/21 08:59 Last Admin: 04/30/21 07:54 Dose: 5 mg Documented by: Saccharomyces Boulardii (Saccharomyces Boulardii 250 Mg Cap) 250 mg PO DAILY [facility] Stop: 05/30/21 08:59 Last Admin: 04/30/21 08:47 Dose: 250 mg Documented by: Tramadol HCl (Tramadol Hcl 50 Mg Tablet) 100 mg PO TID PRN PRN Reason: Pain Stop: 05/29/21 19:40 Last Admin: 04/29/21 20:09 Dose: 100 mg Documented by: Venlafaxine HCl (Venlafaxine Hcl Xr 75 Mg Capxr) 75 mg PO DAILY [facility] Stop: 05/29/21 08:59 Last Admin: 04/30/21 07:55 Dose: 75 mg Documented by: Resident Activity Tracking Resident Involvement: Resident Care Provided Care Provided: Adult Hospital Medicine (1) Cellulitis Laterality: left Site of cellulitis: extremity Site of cellulitis of extremity: lower extremity Qualified Code(s): L03.116 - Cellulitis of left lower limb (2) Diarrhea Diarrhea type: unspecified type Qualified Code(s): R19.7 - Diarrhea, unspecified (3) Altered mental status Altered mental status type: disorientation Qualified Code(s): R41.0 - Disorientation, unspecified (4) COPD (chronic obstructive pulmonary disease) COPD type: emphysema Emphysema type: other Qualified Code(s): J43.8 - Other emphysema
[2021-04-30] MEDS: OXYBUTYNIN CHLORIDE 5 MG TAB PO SCH ×2 (07:54→19:43)
[2021-04-30] MEDS: CLOPIDOGREL BISULFATE 75 MG TAB PO SCH (07:55)
[2021-04-30] MEDS: VENLAFAXINE HCL XR 75 MG CAPXR PO SCH (07:55)
[2021-04-30] MEDS: ASPIRIN 81 MG ECTAB PO SCH (07:56)
[2021-04-30] MEDS: ATORVASTATIN 40 MG TAB PO SCH (07:56)
[2021-04-30] MEDS: FLUTICASONE/VILANTEROL 200/25MCG 14 PUFFS/INHALER INH SCH (07:57)
[2021-04-30] MEDS: HEPARIN SOD 5,000 UNIT/0.5 ML VIAL SQ SCH ×2 (07:57→19:43)
[2021-04-30] MEDS: SACCHAROMYCES BOULARDII 250 MG CAP PO SCH (08:47)
[2021-04-30 08:48] LABS: Basophils # (auto) 0.01 K/uL (0-0.2); Basophils % (auto) 0.1 %; Eosinophils # (auto) 0.13 K/uL (0-0.5); Eosinophils % (auto) 1.3 %; Hematocrit (blood only) 36.2 % (37-47); Hemoglobin 11.7 g/dL (12.0-16.0); Immature Granulocytes # (auto) 0.04 K/uL (0.00-0.02); Immature Granulocytes % (auto) 0.4 %; Lymphocytes % (auto) 11.9 %; Mean Corpuscular Hemoglobin 28.8 pg (25-34); Mean Corpuscular Hgb Conc 32.3 g/dL (32-36); Mean Corpuscular Volume 89.2 fL (80-100); Mean Platelet Volume 11.5 fL (7.4-10.4); Monocytes # (auto) 0.75 K/uL (0.11-0.59); Monocytes % (auto) 7.5 %; Neutrophils # (auto) 7.93 K/uL (1.4-6.5); Neutrophils % (auto) 78.8 %; Platelet Count 200 K/uL (130-400); RDW Coefficient of Variation 17.1 % (11.5-14.5); RDW Standard Deviation 56.1 fL (36.4-46.3); Red Blood Count 4.06 M/uL (4.2-5.4); White Blood Count 10.06 K/uL (4.8-10.8)
[2021-04-30] MEDS: INSULIN ASPART 100 UNITS/ML 3 ML PEN SC SCH ×4 (08:49→20:12)
[2021-04-30] MEDS ORDERED: MICONAZOLE NITRATE POWDER 43 GM EXT PRN (09:15)
[2021-04-30 09:33] LABS: BUN Creatinine Ratio 14.9 (10-20); Calcium 8.7 mg/dl (8.5-10.1); Creatinine Clr Calc Pharmacy 42.6 ml/min; Est GFR (Non-African American) 61.2 ml/min; Potassium 3.9 mmol/L (3.5-5.1)
--- NOTE | 2021-04-30 11:27 | Vascular Medicine Consultation ---
Date of Consultation April 30, 2021 Assessment & Plan (1) PAD (peripheral artery disease): 2. Altered mental status 3. Left lower extremity cellulitis/nonhealing left lower extremity ulcerations 4. Suspected chronic venous insufficiency 5. Type 2 diabetes 6. Left carotid artery, subclavian artery disease Cellulitis/altered mental status improving with broad-spectrum IV antibiotics. From a vascular standpoint no apparent access site complications. Pedal pulses unchanged from post procedure. No need for additional vascular testing at this time. Continue continue wound care. Continue DAPT with aspirin, clopidogrel. Outpatient follow-up as scheduled with repeat noninvasive vascular testing. History of Present Illness Reason for Consultation: PAD Attending Physician: Gricel Barger MD History of Present Illness Mrs. Avila is a pleasant 80 year old female with PAD/critical limb ischemia post left common iliac artery stenting 3 days ago readmitted with altered mental status in the setting of left lower remedy cellulitis. Medical history significant for nonhealing left lower extremity wounds, history of right BKA, carotid artery disease post left CEA, left subclavian artery disease, chronic venous insufficiency, type 2 diabetes, tobacco abuse, COPD, urge incontinence, spinal stenosis, chronic pain with peripheral neuropathy. Patient had previously undergone left SFA angioplasty with CELSO and common iliac stenting 11/2020. Post procedure toe pressures still reduced and more recently has been dealing with a nonhealing ulceration over the lateral aspect of her fifth MTP joint. Repeat angiogram last week showed severe ostial left DEV stenosis just prior to previous stent. Had mild to moderate SFA/popliteal disease and three-vessel runoff to the foot with focal EDITH disease and severe pedal disease. Underwent stenting of left DEV with a single (7 x 37 mm) covered stent. Procedure uncomplicated. Brought back to ED the following day by her family due to confusion/inability to follow commands. Noted to have increased pain/redness of her left foot. Placed on broad-spectrum antibiotics. Erythema has regressed from where initially marked. Has had significant diarrhea while admitted. Mental status today near baseline. Allergies Allergy/AdvReac Type Severity Reaction Status Date / Time hydrogen peroxide Allergy Unknown ALLERGY Verified 04/28/21 21:30 REPORTED "PEROXIDE"-red and itchy lorazepam [From Ativan] AdvReac Mild flushed BP Verified 04/28/21 21:30 elevated , COMPLAINTS OF SKIN BURNING Home Medications Medication Instructions Recorded Confirmed Type fluticasone 250 mcg-salmeterol 50 2 inh INHALATION DAILY 11/13/20 04/28/21 History mcg/dose blistr powdr for inhalation (Advair Diskus) furosemide 40 mg tablet 40 mg PO BID 11/13/20 04/28/21 History glipizide 5 mg tablet 5 mg PO DAILY 11/13/20 04/28/21 History oxybutynin chloride 5 mg tablet 5 mg PO BID 11/13/20 04/28/21 History venlafaxine 75 mg capsule,extended 75 mg PO DAILY 11/13/20 04/28/21 History release 24 hr aspirin 81 mg tablet,delayed 81 mg PO DAILY #30 tab 11/23/20 04/28/21 Rx release (Aspirin Low Dose) atorvastatin 40 mg tablet 40 mg PO QAM #30 tab 11/23/20 04/28/21 Rx clopidogrel 75 mg tablet 75 mg PO DAILY #30 tab 04/27/21 04/28/21 Rx gabapentin 300 mg capsule 300 mg PO UD 04/28/21 04/28/21 History pentoxifylline 400 mg 400 mg PO TID 04/28/21 04/28/21 History tablet,extended release tramadol 100 mg tablet 100 mg PO TID PRN 04/28/21 04/28/21 History Patient History Medical History Carotid stenosis, asymptomatic Cellulitis of both lower extremities Delirium Hx of right BKA Hypokalemia PAD (peripheral artery disease) Surgical History History of right below knee amputation Social History Smoking Status: Former smoker Tobacco Type: Cigarettes Cigarettes Per Day: 1 PPD; Smoking End Date: Begining of November 2020; Second Hand Exposure: No; Do You Dip or Chew Tobacco: No; Hx Alcohol Use: No Hx Substance Use: No Preferred Language: Syrian Communication Ability: Unable Investigation Specialist Required: No Beliefs That Will Affect Care: None marital status: Unknown Current Living Situation: Alone How many Children do You have: 2 Feels Safe at Home: Yes Assistive Devices: Prosthesis and Wheelchair Review of Systems Review of Systems: All systems reviewed & are unremarkable except as noted in HPI & below Physical Exam Physical Exam: General: Comfortable, no acute distress. Lungs: Clear to auscultation Cardiac: Regular rate and rhythm. No appreciable murmur, gallop or rub Abdomen: Soft, mild tenderness Extremities/Vascular: Right STUDIO DIRECTOR pulse intact. No surrounding erythema around access site. Left STUDIO DIRECTOR pulse intact. Mild ecchymosis. No hematoma. Diminished left popliteal pulse. --Left lower extremity with small, scabbed ulceration over valente, posterior calf --Left lateral foot wound <1cm, scabbed, no drainage --Multiple scabbed area over dorsal aspect of foot. Minimal erythema. --Palpable DP pulse. Diminished PT pulse. Sluggish cap refill. Results & Data ([facility]) Vital Signs (Past 12 Hours) Vital Signs Temp Pulse Resp BP BP Pulse Ox 04/30/21 11:05 97.9 F 55 L 16 116/64 95 04/30/21 07:41 97.5 F L 57 L 18 115/57 L 98 04/30/21 04:01 98.1 F 57 L 16 117/62 96 PG Care Time/CCT Total # of Minutes Spent Total Time Spent with Patient: Total time spent is greater than 50% in coordination of care (as documented) at patient's floor/unit and/or counseling patient: Coding Level of Care Code 16578 Initial Inpt Care Lvl 3 Diagnoses PAD (peripheral artery disease) I73.9
[2021-04-30] MEDS: CEFEPIME 2,000 MG in SYRINGE 0 ML IV SCH (12:12)
[2021-04-30] MEDS ORDERED: PROCHLORPERAZINE 5 MG in SYRINGE 4 ML IV ONE (17:45)
[2021-05-01] MEDS: CEFEPIME 2,000 MG in SYRINGE 0 ML IV SCH ×2 (00:05→13:03)
[2021-05-01] MEDS: VANCOMYCIN HCL 1,000 MG in SODIUM CHLORIDE 0.9% 250 ML IV SCH (02:05)
[2021-05-01] MEDS: LACTATED RINGER'S 1,000 ML IV SCH ×2 (02:05→15:37)
[2021-05-01 06:37] LABS: Hematocrit (blood only) 34.3 % (37-47); Hemoglobin 10.9 g/dL (12.0-16.0); Mean Corpuscular Hgb Conc 31.8 g/dL (32-36); Mean Corpuscular Volume 91.2 fL (80-100); Mean Platelet Volume 10.6 fL (7.4-10.4); Platelet Count 196 K/uL (130-400); RDW Coefficient of Variation 16.5 % (11.5-14.5); RDW Standard Deviation 54.9 fL (36.4-46.3); Red Blood Count 3.76 M/uL (4.2-5.4); White Blood Count 7.37 K/uL (4.8-10.8)
[2021-05-01 07:18] LABS: BUN Creatinine Ratio 14.7 (10-20); Calcium 8.5 mg/dl (8.5-10.1); Creatinine Clr Calc Pharmacy 66.3 ml/min; Est GFR (African American) 99.6 ml/min; Est GFR (Non-African American) 85.9 ml/min; Potassium 3.6 mmol/L (3.5-5.1)
[2021-05-01] MEDS: ATORVASTATIN 40 MG TAB PO SCH (08:16)
[2021-05-01] MEDS: CLOPIDOGREL BISULFATE 75 MG TAB PO SCH (08:16)
[2021-05-01] MEDS: ASPIRIN 81 MG ECTAB PO SCH (08:16)
[2021-05-01] MEDS: OXYBUTYNIN CHLORIDE 5 MG TAB PO SCH ×2 (08:17→19:41)
[2021-05-01] MEDS: VENLAFAXINE HCL XR 75 MG CAPXR PO SCH (08:17)
[2021-05-01] MEDS: HEPARIN SOD 5,000 UNIT/0.5 ML VIAL SQ SCH ×2 (08:17→19:42)
[2021-05-01] MEDS: SACCHAROMYCES BOULARDII 250 MG CAP PO SCH (08:17)
[2021-05-01] MEDS: FLUTICASONE/VILANTEROL 200/25MCG 14 PUFFS/INHALER INH SCH (08:17)
[2021-05-01] MEDS: INSULIN ASPART 100 UNITS/ML 3 ML PEN SC SCH ×4 (08:38→20:04)
--- NOTE | 2021-05-01 10:24 | Hospitalist Progress Note ---
Date of Service May 01, 2021 Assessment & Plan (1) Altered mental status: Plan: 80 yo F PMH DM2, significant vascular disease- PAD, venous insufficiency, right BKA, also recurrent chronic cellulitis (including MRSA), ischemic ulcer s/p L DEV stent on 04/27 admitted for AMS. 1) Metabolic Encephalopathy sec to leg cellulitis sec to leg wound -AMS likely secondary to sepsis given elevated WBCs, procalcitonin, febrile. Infectious source most likely chronic left lower leg ulcer with cellulitis. -Negative CXR, UA, CT Head -BCx pending, no growth at 48hr -Initially on IVF IV vancomycin and cefepime, d/c'd 05/01 and placed on bactrim 800/120 1 tab q12 to complete 7 days course. -Wound care nurse consulted, will change dressing [id number] -as of 04/30 patient is AAOx3 -continue to trend CBC 2) Diarrhea -ongoing since 04/29 3pm, digniguard placed -diarrhea resolved 05/01, digniguard removed -c. diff negative, started on probiotic -Sahu in place due to lower back skin irritation from diarrhea. Remove per nursing protocol. 3)Prolonged QTc -EKG 04/28 demonstrated QTc 612, stopped zofran -EKG 04/30 showed QTc 441, resolved 3) PAD -Vascular Medicine consulted for recent procedure, no access site complications no need for further vascular testing at this time. -Continue ASA, Plavix, lipitor 4) DM2 -novolog -glucose 91 5) COPD -Continue breo ellipta -Chronic tobacco use - not interested in quitting. 6) Pain -continue venlafaxin -continue PRN tramadol Acute Renal Failure POA Resolved with IV hydration. FENa: carb consistent diet Code Status: full DVT PPX: heparin PT/OT: seen by PT Case Management: [facility] Dispo: Dana Billings Do PGY 1, FCM (2) COPD (chronic obstructive pulmonary disease): (3) Diarrhea: (4) Cellulitis: (5) PAD (peripheral artery disease): (6) Diabetes: Admission and Anticipated Discharge Date Admission Date: April 29, 2021 Supervising Physician Co-Signing Physician Notes Resident Physician Supervision Note: I independently interviewed and examined the patient and verified the ryder history and physical, reviewed labs and image studies and agree with resident Dr. Villatoro findings and care plan. Subjective 80yo Female admitted for AMS sepsis and cellulitis seen at bedside, doing well. She is awake, pleasant and cooperative, AAOx3. She states she has not slept well, states it is difficult to sleep in the hospital. She states she is no longer having as much diarrhea, is glad the digniguard was removed, had some diarrhea leak after digniguard removal. Patient states she is still occasionally nauseous, states the medication from last night did help. Otherwise patient denies chest pain abd pain SOB. She currently has a sahu catheter. Patient states she has tried to get inpatient rehab in the past, was dissatisfied with how complicated the process was and does not want to go through that again. Review of Systems Review of Systems: Positive nausea, some diarrhea Negative fever chills Negative headache dizziness Negative chest pain palpitations SOB Negative vomitting constipation Negative numbness tingling rash swelling Physical Exam Physical Exam: General: Well appearing, age appropriate Heart: RRR, +S1 S2, no murmurs/gallops/rubs Lungs: cta b/l, wheeze is much improved compared to yesterday Abd: soft, NT/ND, +BS Extremities: right BKA, left foot multiple scabs but no erythema or tenderness. Results & Data Results & Data ([facility]) Vital Signs (Past 12 Hours) Vital Signs Temp Pulse Pulse Resp BP Pulse Ox 05/01/21 07:44 36.6 C 61 18 176/72 H 96 05/01/21 03:38 37 C 62 20 137/56 L 97 04/30/21 23:28 36.9 C 59 L 16 148/61 H 94 04/30/21 22:58 58 L Laboratory Results 05/01/21 05/01/21 05/01/21 Range/Units 11:21 07:26 06:19 WBC (4.8-10.8) K/uL RBC (4.2-5.4) M/uL Hgb (12.0-16.0) g/dL Hct (37-47) % MCV (80-100) fL MCH (25-34) pg MCHC (32-36) g/dL RDW Std Deviation (36.4-46.3) fL RDW Coeff of Isiah (11.5-14.5) % Plt Count (130-400) K/uL MPV (7.4-10.4) fL Sodium 141 (136-145) mmol/L Potassium 3.6 (3.5-5.1) mmol/L Chloride 110 H (98-107) mmol/L Carbon Dioxide 27 (21-32) mmol/L Anion Gap 4.0 (3-11) BUN 9 (7-18) mg/dl Creatinine 0.63 (0.6-1.2) mg/dl Est Cr Clr Drug Dosing 66.3 ml/min Est GFR ( Amer) 99.6 ml/min Est GFR (Non-Af Amer) 85.9 ml/min BUN/Creatinine Ratio 14.7 (10-20) Glucose 91 (70-99) mg/dl POC Glucose 120 H 112 H (70-99) mg/dl Calcium 8.5 (8.5-10.1) mg/dl 05/01/21 04/30/21 Range/Units 06:19 19:46 WBC 7.37 (4.8-10.8) K/uL RBC 3.76 L (4.2-5.4) M/uL Hgb 10.9 L (12.0-16.0) g/dL Hct 34.3 L (37-47) % MCV 91.2 (80-100) fL MCH 29.0 (25-34) pg MCHC 31.8 L (32-36) g/dL RDW Std Deviation 54.9 H (36.4-46.3) fL RDW Coeff of Isiah 16.5 H (11.5-14.5) % Plt Count 196 (130-400) K/uL MPV 10.6 H (7.4-10.4) fL Sodium (136-145) mmol/L Potassium (3.5-5.1) mmol/L Chloride (98-107) mmol/L Carbon Dioxide (21-32) mmol/L Anion Gap (3-11) BUN (7-18) mg/dl Creatinine (0.6-1.2) mg/dl Est Cr Clr Drug Dosing ml/min Est GFR ( Amer) ml/min Est GFR (Non-Af Amer) ml/min BUN/Creatinine Ratio (10-20) Glucose (70-99) mg/dl POC Glucose 101 H (70-99) mg/dl Calcium (8.5-10.1) mg/dl Medications Administered Current Inpatient Medications Aspirin (Aspirin 81 Mg Ectab) 81 mg PO DAILY [facility] Stop: 05/29/21 08:59 Last Admin: 05/01/21 08:16 Dose: 81 mg Documented by: Atorvastatin Calcium (Atorvastatin 40 Mg Tab) 40 mg PO QAM JOSEP Stop: 05/29/21 08:59 Last Admin: 05/01/21 08:16 Dose: 40 mg Documented by: Clopidogrel Bisulfate (Clopidogrel Bisulfate 75 Mg Tab) 75 mg PO DAILY JOSEP Stop: 05/29/21 08:59 Last Admin: 05/01/21 08:16 Dose: 75 mg Documented by: Dextrose (Dextrose 50% 50 Ml Syringe) 25 - 50 ml IV UD PRN; Protocol PRN Reason: Hypoglycemia Protocol Stop: 05/29/21 01:53 Famotidine (Famotidine 20 Mg Tab) 20 mg PO QAM [facility] Stop: 05/31/21 12:14 Last Admin: 05/01/21 13:03 Dose: 20 mg Documented by: Fluticasone/Vilanterol (Fluticasone/Vilanterol 200/25mcg 14 Puffs/Inhaler) 1 puffs INH DAILY JOSEP; Protocol Stop: 05/29/21 08:59 Last Admin: 05/01/21 08:17 Dose: 1 puffs Documented by: Glucagon (Glucagon For Inj 1 Mg Vial) 1 mg SQ UD PRN; Protocol PRN Reason: Hypoglycemia Protocol Stop: 05/29/21 01:53 Glucose (Glucose 10 Tabs/Tube) 4 - 8 tabs PO UD PRN; Protocol PRN Reason: Hypoglycemia Protocol Stop: 05/29/21 01:53 Glucose (Glucose 40% Gel 15 Gm Tube) 15 - 30 gm PO UD PRN; Protocol PRN Reason: Hypoglycemia Protocol Stop: 05/29/21 01:53 Heparin Sodium (Porcine) (Heparin Sod 5,000 Unit/0.5 Ml Vial) 5,000 units SQ Q12 JOSEP Stop: 05/29/21 20:59 Last Admin: 05/01/21 08:17 Dose: 5,000 units Documented by: Lactated Ringer's (Lr) 1,000 mls @ 80 mls/hr IV .[id number] [facility] Stop: 05/29/21 01:53 Last Admin: 05/01/21 15:37 Dose: 80 mls/hr Documented by: Vancomycin HCl 1,000 mg/ (Sodium Chloride) 270 mls @ 200 mls/hr IV Q24H [facility]; Protocol Stop: 05/02/21 02:59 Last Infusion: 05/01/21 03:16 Dose: Infused Documented by: Cefepime HCl 2,000 mg/ Syringe 20 mls @ 5 mls/min IV Q12H [facility]; Protocol Stop: 05/01/21 22:59 Last Admin: 05/01/21 13:03 Dose: 5 mls/min Documented by: Insulin Aspart (Insulin Aspart 100 Units/Ml 3 Ml Pen) 0 units SC ACHS JOSEP Stop: 05/29/21 02:59 Last Admin: 05/01/21 12:25 Dose: Not Given Documented by: Miconazole Nitrate (Miconazole Nitrate Powder 43 Gm) 1 appln EXT PRN PRN PRN Reason: Affected Skin Folds Stop: 05/30/21 09:14 Miconazole Nitrate (Miconazole Nitrate 2% Vag Cr 45 Gm Tube) 1 appln PV HS [facility] Stop: 05/08/21 20:59 Miscellaneous (Carbohydrates For Hypoglycemia ) 15 - 30 gm PO UD PRN PRN Reason: Hypoglycemia Protocol Stop: 05/29/21 01:53 Miscellaneous Information (Vancomycin Consult Active) 1 ea N/A UD PRN PRN Reason: Consult Stop: 05/28/21 22:46 Oxybutynin Chloride (Oxybutynin Chloride 5 Mg Tab) 5 mg PO BID [facility] Stop: 05/29/21 08:59 Last Admin: 05/01/21 08:17 Dose: 5 mg Documented by: Prochlorperazine (Prochlorperazine Maleate 5 Mg Tab) 5 mg PO Q8 PRN PRN Reason: Nausea Stop: 05/31/21 12:14 Last Admin: 05/01/21 13:03 Dose: 5 mg Documented by: Saccharomyces Boulardii (Saccharomyces Boulardii 250 Mg Cap) 250 mg PO DAILY [facility] Stop: 05/30/21 08:59 Last Admin: 05/01/21 08:17 Dose: 250 mg Documented by: Tramadol HCl (Tramadol Hcl 50 Mg Tablet) 100 mg PO TID PRN PRN Reason: Pain Stop: 05/29/21 19:40 Last Admin: 04/29/21 20:09 Dose: 100 mg Documented by: Trimethoprim/Sulfamethoxazole (Sulfamethoxazole/Trimethoprim Ds 800/160mg Tab) 1 tab PO Q12 JOSEP Stop: 05/08/21 20:59 Venlafaxine HCl (Venlafaxine Hcl Xr 75 Mg Capxr) 75 mg PO DAILY [facility] Stop: 05/29/21 08:59 Last Admin: 05/01/21 08:17 Dose: 75 mg Documented by: Resident Activity Tracking Resident Involvement: Resident Care Provided Care Provided: Adult Hospital Medicine (1) Cellulitis Laterality: left Site of cellulitis: extremity Site of cellulitis of extremity: lower extremity Qualified Code(s): L03.116 - Cellulitis of left lower limb (2) Diarrhea Diarrhea type: unspecified type Qualified Code(s): R19.7 - Diarrhea, unspecified (3) Altered mental status Altered mental status type: disorientation Qualified Code(s): R41.0 - Disorientation, unspecified (4) COPD (chronic obstructive pulmonary disease) COPD type: emphysema Emphysema type: other Qualified Code(s): J43.8 - Other emphysema
[2021-05-01] MEDS: FAMOTIDINE 20 MG TAB PO SCH (13:03)
[2021-05-01] MEDS: PROCHLORPERAZINE MALEATE 5 MG TAB PO PRN (13:03)
--- NOTE | 2021-05-01 13:05 | Electrocardiogram Report ---
Test Reason : Blood Pressure : / mmHG Vent. Rate : 057 BPM Atrial Rate : 057 BPM P-R Int : 124 ms QRS Dur : 116 ms QT Int : 454 ms P-R-T Axes : 061 -43 040 degrees QTc Int : 441 ms Sinus bradycardia Left axis deviation Incomplete right bundle branch block Old Possible Lateral infarct (cited on or before 13-NOV-2020) Abnormal ECG When compared with ECG of 28-APR-2021 21:21, Nonspecific T wave abnormality no longer evident in Anterolateral leads QT has shortened Confirmed by Francois Whitt ([id number] on 05/01/2021 1:05:02 PM Referred By: REFERRED SELF Confirmed By:Francois Whitt
[2021-05-01] MEDS: SULFAMETHOXAZOLE/TRIMETHOPRIM DS 800/160MG TAB PO SCH (19:41)
[2021-05-01] MEDS ORDERED: MICONAZOLE NITRATE 2% VAG CR 45 GM TUBE PV SCH (21:00)
[2021-05-02 07:31] LABS: Hematocrit (blood only) 39.2 % (37-47); Hemoglobin 12.9 g/dL (12.0-16.0); Mean Corpuscular Hemoglobin 29.4 pg (25-34); Mean Corpuscular Hgb Conc 32.9 g/dL (32-36); Mean Corpuscular Volume 89.3 fL (80-100); Mean Platelet Volume 10.6 fL (7.4-10.4); Platelet Count 228 K/uL (130-400); Red Blood Count 4.39 M/uL (4.2-5.4)
[2021-05-02] MEDS ORDERED: hydrALAZINE HCL 20 MG/ML VIAL IV ONE (07:45)
[2021-05-02 07:59] LABS: BUN Creatinine Ratio 9.9 (10-20); Calcium 9.2 mg/dl (8.5-10.1); Creatinine Clr Calc Pharmacy 60.9 ml/min; Est GFR (African American) 99.6 ml/min; Est GFR (Non-African American) 85.9 ml/min; Potassium 3.4 mmol/L (3.5-5.1)
[2021-05-02] MEDS: OXYBUTYNIN CHLORIDE 5 MG TAB PO SCH (08:36)
[2021-05-02] MEDS: SULFAMETHOXAZOLE/TRIMETHOPRIM DS 800/160MG TAB PO SCH (08:36)
[2021-05-02] MEDS: CLOPIDOGREL BISULFATE 75 MG TAB PO SCH (08:37)
[2021-05-02] MEDS: ATORVASTATIN 40 MG TAB PO SCH (08:37)
[2021-05-02] MEDS: ASPIRIN 81 MG ECTAB PO SCH (08:37)
[2021-05-02] MEDS: SACCHAROMYCES BOULARDII 250 MG CAP PO SCH (08:37)
[2021-05-02] MEDS: FAMOTIDINE 20 MG TAB PO SCH (08:38)
[2021-05-02] MEDS: VENLAFAXINE HCL XR 75 MG CAPXR PO SCH (08:38)
[2021-05-02] MEDS: HEPARIN SOD 5,000 UNIT/0.5 ML VIAL SQ SCH (08:39)
[2021-05-02] MEDS: PROCHLORPERAZINE MALEATE 5 MG TAB PO PRN ×2 (08:39→15:25)
[2021-05-02] MEDS: FLUTICASONE/VILANTEROL 200/25MCG 14 PUFFS/INHALER INH SCH (08:39)
[2021-05-02] MEDS: INSULIN ASPART 100 UNITS/ML 3 ML PEN SC SCH ×2 (08:41→12:18)
[2021-05-02] MEDS ORDERED: amLODIPine BESYLATE 5 MG TAB PO SCH (12:00)
--- NOTE | 2021-05-02 18:03 | Discharge Summary ---
Date of Service May 02, 2021 Admission HPI Per Admitting Provider Acacia Avila is a 80-year-old female with a past medical history of right BKA, PAD, DM and ischemic ulcer s/p L DEV one day prior presenting with AMS. The patient was not able to give a history, she was able to tell me her name and follow commands but was not able to tell me where she was or the date. She denied any pain but was withdrawing to pain when I touched her left foot. She was moving all extremities. I called her son Yazan who stated that she was unresponsive which is why they brought her to the ER. She was in her wheelchair sitting and didn't know who her son was and was confused. Prior to this she had her procedure one day prior and did not have any pain, fevers, nausea, upper respiratory symptoms or other complaints. She has had confusion before that was attributed to her medications including Tramadol. She has also gotten confused and mad while in the hospital in the past. She does have some trouble with memory at baseline that the son attributes to age. Son Yazan will be at work until 3PM but can be reached after that at # [phone] Admission Exam Per Admitting Provider Constitutional: + altered mental status (follows commands, answers some questions) Eyes: PERRL, conjunctivae normal, anicteric sclerae ENMT: external ear and nose normal, oropharynx normal Neck: normal visual inspection Respiratory: normal respiratory effort, lungs clear to auscultation Cardiovascular: RRR, no murmur, no edema - left lower extremity with strong Doppler pulses of the dorsalis pedis and posterior tibial Gastrointestinal (Abdomen): normal bowel sounds, soft, nontender, no hepatosplenomegaly Musculoskeletal: - surgically absent right lower leg - moving all extremities Skin: - left foot with ulceration, warmth and tenderness to palpation (looks similar to images from wound care from this month) Neurologic: + confused Psychiatric: Orientation: oriented to person; + not alert, + not oriented to place and + not oriented to time Eye Contact: + fair eye contact Affect: + depressed affect Principal Diagnosis Cellulitis, Metabolic Encephalopathy Discharge Exam Constitutional WD/WN, vitals as above well developed; not ill appearing Respiratory normal respiratory effort; no respiratory distress, no labored breathing and no cough Cardiovascular RRR, no murmur, no edema Discharge Data Allergies Allergy/AdvReac Type Severity Reaction Status Date / Time hydrogen peroxide Allergy Unknown ALLERGY Verified 04/28/21 21:30 REPORTED "PEROXIDE"-red and itchy lorazepam [From Ativan] AdvReac Mild flushed BP Verified 04/28/21 21:30 elevated , COMPLAINTS OF SKIN BURNING Consultations 04/28/21 23:40 ED Decision to Admit Stat 04/29/21 01:54 Consult Cardiology Routine 05/02/21 13:15 Consult Palliative Care Routine Ordered Studies 04/28/21 21:16 CT head/brain wo con Urgent 04/29/21 01:54 US venous doppler LE LT Routine Hospital Course (1) Altered mental status: 80 yo F PMH DM2, significant vascular disease- PAD, venous insufficiency, right BKA, also recurrent chronic cellulitis (including MRSA), ischemic ulcer s/p L DEV stent on 04/27 admitted for AMS. 1) Metabolic Encephalopathy secondary to leg cellulitis of chronic leg wound - AMS likely secondary to sepsis given elevated WBCs, procalcitonin, febrile. Infectious source most likely chronic left lower leg ulcer with cellulitis. - unable to culture wound - hx MRSA wound infection, dc'd on bactrim 800/120 1 tab q12 to complete total of 7 days of antibiotics 2) Diarrhea - onset and resolution during hospital stay. - negative C diff - improved with probiotic 3) Prolonged QTc - noted on EKG 04/28 demonstrating QTc 612, stopped zofran - EKG 04/30 showed QTc 441, resolved 3) PAD -Vascular Medicine consulted for recent procedure, no access site complications no need for further vascular testing at this time. -Continue ASA, Plavix, lipitor 4) HTN - persistently HTNive during admission >180 systolic - started on amlodipine 2.5 mg daily with improvement Deconditioning: evaluated by PT and OT for weakness and deconditioning, who recommended inpatient rehab services. Patient was adament that she did not want to go to rehab or wait in the hospital for approval and wished to go home and utilize her pre-existing home rehab services. Discussions with case management, patient's sons, patient's PCP all in agreement that she would benefit from inpatient rehab but that she would be too stubborn/persistently against it to go. Office of Aging notified to make home visit and assess safety at home. All other chronic conditions managed per home regimen (2) COPD (chronic obstructive pulmonary disease): (3) Diarrhea: (4) Cellulitis: (5) PAD (peripheral artery disease): (6) Diabetes: Total Time Total Time Spent Total Time Spent (In Minutes): see attending attestation Discharge Plan Discharge Items Patient Disposition: Home - Home Health Services Reason For Visit: ALTERED MENTAL STATUS Discharge Diagnosis: Cellulitis Activity: Resume your previous activity Weightbearing: Full weightbearing Non-emergency contact: Primary Care Provider Call non-emergency contact if: you have any medication questions and your symptoms worsen Follow-up/Referrals: Og Baca MD [Primary Care Provider] - 05/10/21 1:30 pm Diet: Carb Consistent or DM2 Addtl Attending Provider Instructions: Cellulitis: You were brought to the hospital because you were confused and delirious secondary to a skin infection on your leg. This improved with antibiotics. You will finish a total of 5 days of antibiotics to treat this. Deconditioning: Because of your multiple hospitalizations and progression of medical illness, your muscles have gotten weaker and need help regaining strength to help you move around and do things on your own. Physical therapy worked with you in the hospital and based on your strength, recommended you go to Inpatient Rehab for a brief stay to help improve this. We discussed this with you, your sons, and your PCP Dr. Veronika Jenkins, who all also recommended you go to Rehab. We contacted the Office of Aging as we are concerned that you won't be safe at home alone. We also contacted the Palliative Care doctor, Dr. Lili Montana, who can talk to you about optimizing medications to keep you comfortable and aligned with your goals of care. Pending Studies at Discharge: No Stand-Alone Forms: [facility] LCO Creation, Smoking Cessation Medications and DC Order Prescriptions: New sulfamethoxazole-trimethoprim [Bactrim DS] 800-160 mg Tablet 1 tab PO Q12 2 Days Qty: 4 RF: 0 amlodipine [Norvasc] 5 mg Tablet 2.5 mg PO QAM 30 Days Qty: 15 RF: 0 Continued clopidogrel 75 mg tablet 75 mg PO DAILY Qty: 30 RF: 3 pentoxifylline 400 mg tablet extended release 400 mg PO TID RF: 0 gabapentin 300 mg capsule 300 mg PO UD RF: 0 tramadol 100 mg tablet 100 mg PO TID PRN (Reason: Pain) RF: 0 furosemide 40 mg tablet 40 mg PO BID RF: 0 glipizide 5 mg tablet 5 mg PO DAILY RF: 0 oxybutynin chloride 5 mg tablet 5 mg PO BID RF: 0 venlafaxine 75 mg capsule,extended release 24hr 75 mg PO DAILY RF: 0 fluticasone propion-salmeterol [Advair Diskus] 250-50 mcg/dose blister with device 2 inh INHALATION DAILY RF: 0 atorvastatin 40 mg Tablet 40 mg PO QAM Qty: 30 RF: 0 aspirin [Aspirin Low Dose] 81 mg tablet,delayed release (DR/EC) 81 mg PO DAILY Qty: 30 RF: 0 Discharge Orders: Discharge Order (Routine); Ordered 05/02/21 Ordered By: Kassandra Franco/Other Patient Handouts: High Blood Sugar (Hyperglycemia), Hypoglycemia (Low Blood Sugar), Managing Type 2 Diabetes Admission Data Admit Date/Time: 04/29/21 00:00 Attending Provider: Gricel Barger Admit Provider: Brian Messina Primary Care Provider: Og Baca Other Providers: Matt Fu ; Jadiel Jha ; [facility] Other Interventions: Discharge Summary Assessment (RN) Last Done: 05/02/21 14:56 Supervising Physician Co-Signing Physician Notes Resident Physician Supervision Note: I independently interviewed and examined the patient and verified the ryder history and physical, reviewed labs and image studies and agree with resident Dr. Villatoro findings and care plan. Resident Activity Tracking Resident Involvement: Resident Care Provided Care Provided: Adult Hospital Medicine Home Health Attestation I certify that this patient is under my care and that I, or a physicians a ssistant working with me, had a face to-face encounter that meets the home health [id number] encounter requirements with this patient. The encounter with the patient was in whole, or in part, for the following medical condition, which is the primary reason for home health care (list medical condition): Cellulitis I certify that, based on my findings, the following services are medically necessary home health services: My clinical findings support the need for the above services because: Caregiver Instruct Med Mgmt, Safety, Disease Process, Signs to Report Home Safety Assessment OT Assess ADL Status and Restore Function w ADLs PT Assessment for Endurance / Balance / Strength Skilled Nsg Assessment Skilled Nsg Assessment Surgical Incision / Wound Further, I certify that my clinical findings support that this patient is homebound (i.e. absences from home require considerable and taxing effort and are for medical reasons or buddhism services or infrequently or of short duration when for other reasons) because: Supportive Aid - Wheelchair Certification for Home Health Services: Based on the above findings, I certify that this patient is confined to the home and needs intermittent shelter care, physical therapy and/or speech therapy or continues to need occupational therapy. The patient is under my care, and I have initiated the establishment of the plan of care. This patient will be followed by a physician who will periodically review the plan of care.
== END 2021-05-02 17:37 | disposition home health service (06) ==
LOC: ED 21:06 → 2N 04-29 → INTOOBSV 04-29 → SUATTDRO 04-29 → 2N 04-29 01:24

== ENCOUNTER 2021-05-20 03:11 | Inpatient (IN) ==
[2021-05-20 03:48] LABS: Basophils # (auto) 0.01 K/uL (0-0.2); Basophils % (auto) 0.1 %; Eosinophils # (auto) 0.28 K/uL (0-0.5); Eosinophils % (auto) 2.6 %; Hematocrit (blood only) 34.6 % (37-47); Hemoglobin 11.2 g/dL (12.0-16.0); Immature Granulocytes # (auto) 0.02 K/uL (0.00-0.02); Immature Granulocytes % (auto) 0.2 %; Lymphocytes # (auto) 1.27 K/uL (1.2-3.4); Lymphocytes % (auto) 11.9 %; Mean Corpuscular Hemoglobin 29.2 pg (25-34); Mean Corpuscular Hgb Conc 32.4 g/dL (32-36); Mean Corpuscular Volume 90.1 fL (80-100); Mean Platelet Volume 9.8 fL (7.4-10.4); Monocytes # (auto) 0.85 K/uL (0.11-0.59); Neutrophils # (auto) 8.21 K/uL (1.4-6.5); Neutrophils % (auto) 77.2 %; Platelet Count 376 K/uL (130-400); RDW Standard Deviation 59.1 fL (36.4-46.3); Red Blood Count 3.84 M/uL (4.2-5.4); White Blood Count 10.64 K/uL (4.8-10.8)
[2021-05-20 03:56] LABS: iSTAT Creatinine 1.8 mg/dl (0.6-1.3); iSTAT Hemoglobin 11.6 g/dl (12.0-16.0); iSTAT Ionized Calcium 1.18 mmol/l (1.12-1.32); iSTAT Potassium 4.2 mmol/L (3.3-5.0)
[2021-05-20 03:57] LABS: Base Excess VBG 3.2 mEq/L; Oxygen Saturation VBG 71.2 %; pH VBG 7.38 (7.36-7.41)
[2021-05-20 03:58] LABS: Partial Thromboplastin Time 25.5 Seconds (21.0-31.0); Prothrombin Time 10.2 Seconds (9.0-12.0)
[2021-05-20 04:06] LABS: Alanine Aminotransferase 11 U/L (12-78); Aspartate Aminotransferase 15 U/L (15-37); BUN Creatinine Ratio 15.1 (10-20); Bilirubin Direct 0.1 mg/dl (0-0.2); Blood Urea Nitrogen 28 mg/dl (7-18); Calcium 9.2 mg/dl (8.5-10.1); Carbon Dioxide 30 mmol/L (21-32); Chloride 105 mmol/L (98-107); Est GFR (African American) 30.1 ml/min; Glucose 144 mg/dl (70-99); Lipase 67 U/L (73-393); Magnesium 2.2 mg/dl (1.8-2.4); Potassium 4.2 mmol/L (3.5-5.1); Sodium 141 mmol/L (136-145)
[2021-05-20 04:09] LABS: Alkaline Phosphatase 104 U/L (45-117); Bilirubin,Total 0.4 mg/dl (0.2-1); Creatine Kinase 83 U/L (26-192); Total Protein 7.2 gm/dl (6.4-8.2); Troponin I < 0.015 ng/ml (0-0.045)
--- NOTE | 2021-05-20 06:27 | CT Scan Report ---
CT SCAN OF THE BRAIN WITHOUT IV CONTRAST CLINICAL HISTORY: Fall. COMPARISON STUDY: CT of the brain dated 04/28/2021. TECHNIQUE: Unenhanced axial CT scan of the brain is performed from the vertex to the skull base. A do se lowering technique was utilized adhering to the principles of ALARA. The examination is modestly d egraded by motion artifact. FINDINGS: Brain parenchyma: There are age-related involutional changes noting mild subcortical and periventric ular microangiopathic change. There is no hemorrhage, mass effect, or evidence of acute territorial i schemia by CT criteria. Thapa-white matter differentiation is preserved. No extra-axial fluid collecti on is seen. Ventricles, sulci, cisterns: Prominent secondary to involutional change. Intracranial vasculature: There is atherosclerotic calcification of the cavernous carotid arteries. Calvarium: The skeletal structures are osteopenic. No depressed calvarial fracture is identified. Sinuses and mastoids: The paranasal sinuses are clear. The mastoid air cells are well pneumatized. Orbits: The bony orbits are grossly intact. IMPRESSION: There is no hemorrhage, mass effect, or evidence of acute territorial ischemia by CT crit danny. ACT 112: Negative or not required by law. Electronically signed by: Dmitry Cherry M.D. 05/20/2021 6:26 AM
--- NOTE | 2021-05-20 06:32 | CT Scan Report ---
CT SCAN OF THE CERVICAL SPINE CLINICAL HISTORY: Fall. COMPARISON STUDY: CT angiogram of the neck dated 03/13/2015. TECHNIQUE: CT scan of the cervical spine is performed from the skull base to the upper thoracic spine . Images are reviewed in the axial, sagittal, and coronal planes. IV contrast was not administered fo r this examination. A dose lowering technique was utilized adhering to the principles of ALARA. The examination is modestly degraded by motion artifact. FINDINGS: Skeletal structures: The skeletal structures are heterogeneously osteopenic. There is no evidence of fracture or subluxation involving the cervical spine. Vertebral body height and alignment are maintai jeffry. Anterior osteophytes are seen throughout. The odontoid process and lateral masses are intact. Th e atlantoaxial articulation is preserved noting productive degenerative change. The spinous processes appear intact. There is moderate to advanced multilevel cervical spondylosis. Uncovertebral and face t arthropathy contribute to neural foraminal stenosis at most levels. Intervertebral discs: There is moderate to severe disc space narrowing at C5-C6 and C6-C7. Mild disc space narrowing seen at the remaining cervical levels. Central canal: Large posterior disc osteophyte complexes at C5-C6 and C6-C7 likely contribute to acqu ired compromise of the central canal. Soft tissues: The prevertebral and paraspinous soft tissues are within normal limits. There is athero sclerotic calcification of the carotid bulbs. Calvarium: The visualized calvarium at the skull base appears intact. Brain parenchyma: Partially visualized brain parenchyma at the skull base is within normal limits. Sinuses and mastoids: The visualized paranasal sinuses are clear. The mastoid air cells are well pneu matized. Lung apices: Mild emphysematous change is noted at the apices. Apical lung parenchyma is otherwise cl ear as visualized. IMPRESSION: 1. There is no evidence of fracture or subluxation involving the cervical spine. 2. Osteopenia and spondylotic change as above. ACT 112: Negative or not required by law. Electronically signed by: Dmitry Cherry M.D. 05/20/2021 6:31 AM
--- NOTE | 2021-05-20 06:37 | CT Scan Report ---
CT SCAN OF THE FACIAL BONES WITHOUT IV CONTRAST CLINICAL HISTORY: Fall. Facial injury. COMPARISON STUDY: CT of the brain performed concurrently on 05/20/2021. TECHNIQUE: High-resolution CT scan of the facial bones is performed. Images are reviewed in the axia l, sagittal, and coronal planes. IV contrast was not administered for this examination. A dose lower ing technique was utilized adhering to the principles of ALARA. The examination is significantly degr aded by motion artifact. FINDINGS: The skeletal structures are heterogeneously osteopenic. There is no evidence of facial bone fracture. The bony orbits are intact and the orbital contents are within normal limits. The zygomati c arches, nasal bones, and pterygoid plates are preserved. The maxilla and mandible are intact. Degen erative change is noted in the temporomandibular joints. There are no layering blood products within the paranasal sinuses. The sinuses and mastoids are clear. The visualized calvarium and upper cervica l spine are maintained. Partially imaged brain parenchyma is within normal limits. There are numerous dental caries. IMPRESSION: 1. There is no evidence of facial bone fracture noting a motion compromised examination. 2. Numerous dental caries are identified. Follow-up with dentistry is recommended. ACT 112: Negative or not required by law. Electronically signed by: Dmitry Cherry M.D. 05/20/2021 6:35 AM
[2021-05-20] MEDS ORDERED: ALBUT/IPRATROP 3MG/0.5MG NEB 3 ML VIAL NEB STA (06:42)
[2021-05-20] MEDS ORDERED: methylPREDNISolone 125 MG/2 ML VIAL IV STA (06:42)
--- NOTE | 2021-05-20 06:48 | CT Scan Report ---
CT SCAN OF THE ABDOMEN AND PELVIS WITHOUT IV CONTRAST CLINICAL HISTORY: Trauma. Fall. COMPARISON STUDY: Abdominal CT dated 12/02/2020. Chest CT scans dated 12/03/2020 and 11/15/2008. TECHNIQUE: CT scan of the abdomen and pelvis is performed from the lung bases to the proximal femora. Images are reviewed in the axial, sagittal, and coronal planes. IV contrast was not administered for this examination. Note that the examination was performed in significantly suboptimal fashion withou t IV contrast. There is also motion artifact, as well as streak artifact from the arms which could no t be elevated above the abdomen. A dose lowering technique was utilized adhering to the principles of ALARA. CT DOSE: 1299.50 mGy.cm FINDINGS: Lung bases: The heart is normal in size and without pericardial effusion. A 10 mm pulmonary nodule is again seen at the left lung base on image #11. The lung bases are otherwise clear noting bibasilar s carring/atelectasis. There is a small hiatal hernia. Liver: The unenhanced liver is normal in size, contour, and attenuation. There is no intrahepatic agatha iary ductal dilatation. Gallbladder: Surgically absent noting clips in the gallbladder fossa. Spleen: Normal in size and attenuation. Pancreas: The unenhanced pancreas is atrophic and grossly unremarkable. Adrenal glands: Unremarkable. Kidneys: The unenhanced kidneys demonstrate cortical atrophy and are without hydronephrosis. There is a 3 mm nonobstructing left renal calculus. A 1.5 cm cyst is noted in the right upper pole, and a 1.7 cm exophytic cyst arises from the left kidney. Abdominal vasculature: There is advanced atherosclerotic calcification of the abdominal aorta. An inf rarenal abdominal aortic aneurysm measures 3.2 x 3.0 cm. Stents are noted in the iliac arteries as we ll as the right superficial femoral artery. Bowel: Mild/moderate fecal retention is seen throughout the colon. There is no bowel obstruction. 8 a dditional diverticulum is noted. The appendix is normal as visualized. Peritoneum: There is no intraperitoneal free air or abdominal ascites. Lymphadenopathy: None. Pelvic viscera: The bladder is distended but otherwise normal in appearance. The uterus and adnexa ar e normal as visualized. Postoperative change is noted in the groin bilaterally. Skeletal structures: The skeletal structures are heterogeneously osteopenic. There is moderate to adv anced lumbosacral spondylosis as well as scoliosis. No lytic or blastic lesions are seen. IMPRESSION: 1. Significantly suboptimal examination without IV contrast. There is also streak and motion artifact 2. There is no evidence of solid organ injury in the abdomen or pelvis on this unenhanced examination . 3. There is a 3.2 cm infrarenal abdominal aortic aneurysm. 4. A 10 mm pathologically indeterminant pulmonary nodule is again seen in the left lower lobe. This i s unchanged from recent prior studies but new dating back to older chest CTs. Neoplasm is not exclude d. 5. Left-sided nephrolithiasis. 6. Additional findings as above. ACT 112: Negative or not required by law. Electronically signed by: Dmitry Cherry M.D. 05/20/2021 6:47 AM
--- NOTE | 2021-05-20 06:59 | Emergency Department Note ---
History of Present Illness General Chief complaint: Fall Stated complaint: Fall Time Seen by Provider: 05/20/21 03:21 Source: EMS and RN notes reviewed History of Present Illness Provider complaint: Fall Onset (ago): unknown 72-year-old female presents emergency department for fall. Received a call from EMS that they received a call from a life alert bracelet that the patient fallen. On arrival the patient was in her bathroom and on the floor. Patient was confused. Patient's oxygen saturation was 86% on room air. Patient states she does not wear oxygen normally. Home Medications Medication Instructions Recorded Confirmed Type fluticasone 250 mcg-salmeterol 50 2 inh INHALATION DAILY 11/13/20 04/28/21 History mcg/dose blistr powdr for inhalation (Advair Diskus) furosemide 40 mg tablet 40 mg PO BID 11/13/20 04/28/21 History glipizide 5 mg tablet 5 mg PO DAILY 11/13/20 04/28/21 History oxybutynin chloride 5 mg tablet 5 mg PO BID 11/13/20 04/28/21 History venlafaxine 75 mg capsule,extended 75 mg PO DAILY 11/13/20 04/28/21 History release 24 hr aspirin 81 mg tablet,delayed 81 mg PO DAILY #30 tab 11/23/20 04/28/21 Rx release (Aspirin Low Dose) atorvastatin 40 mg tablet 40 mg PO QAM #30 tab 11/23/20 04/28/21 Rx clopidogrel 75 mg tablet 75 mg PO DAILY #30 tab 04/27/21 04/28/21 Rx gabapentin 300 mg capsule 300 mg PO UD 04/28/21 04/28/21 History pentoxifylline 400 mg 400 mg PO TID 04/28/21 04/28/21 History tablet,extended release tramadol 100 mg tablet 100 mg PO TID PRN 04/28/21 04/28/21 History amlodipine 5 mg tablet (Norvasc) 2.5 mg PO QAM 30 Days #15 tab 05/02/21 Rx Allergies Allergy/AdvReac Type Severity Reaction Status Date / Time hydrogen peroxide Allergy Unknown ALLERGY Verified 04/28/21 21:30 REPORTED "PEROXIDE"-red and itchy lorazepam [From Ativan] AdvReac Mild flushed BP Verified 04/28/21 21:30 elevated , COMPLAINTS OF SKIN BURNING Past Med/Surg History Medical History (Updated 05/20/21 @ 07:21 by Adiel Zhang) Carotid stenosis, asymptomatic Cellulitis of both lower extremities COPD (chronic obstructive pulmonary disease) Delirium Diabetes Hx of right BKA Hypokalemia PAD (peripheral artery disease) Surgical History History of right below knee amputation Social History Smoking Status: Current every day smoker Tobacco Type: Cigarettes Cigarettes Per Day: 1 PPD; Second Hand Exposure: No; Hx Alcohol Use: No Hx Substance Use: No Preferred Language: Syriac Comber Fixer Required: No Beliefs That Will Affect Care: None marital status: Unknown Current Living Situation: Alone How many Children do You have: 2 Feels Safe at Home: Yes Assistive Devices: Wheelchair Review of Systems Unobtainable due to cognitive status Physical Exam Vital Signs Vital Signs - 24 hr 05/20/21 03:18 05/20/21 03:25 05/20/21 03:50 Temperature 36.8 C Temperature Source Oral Pulse Rate 69 Pulse Rate [Apical] 69 Respiratory Rate 18 18 Respiratory Effort / Characteristics Blood Pressure 129/78 Blood Pressure [Right Arm] 129/78 Blood Pressure Mean 95 Blood Pressure Mean [Right Arm] 95 Pulse Oximetry 86 L 91 90 Oxygen Delivery Method Room Air Nasal Cannula Nasal Cannula Oxygen Flow Rate 2 2 Sepsis Recent Fever Within 48 Hours No Sepsis New/Unexplained Change in Mental Status Yes Sepsis Action Taken by Nursing No Action Required 05/20/21 04:01 05/20/21 04:30 05/20/21 05:30 Temperature Temperature Source Pulse Rate Pulse Rate [Apical] 83 62 62 Respiratory Rate 20 20 18 Respiratory Effort / Characteristics Blood Pressure Blood Pressure [Right Arm] 122/40 L 122/43 L 141/68 H Blood Pressure Mean Blood Pressure Mean [Right Arm] 67 69 92 Pulse Oximetry 89 L 91 93 Oxygen Delivery Method Nasal Cannula Oxygen Flow Rate 2 Sepsis Recent Fever Within 48 Hours Sepsis New/Unexplained Change in Mental Status Sepsis Action Taken by Nursing 05/20/21 06:00 05/20/21 06:52 Temperature Temperature Source Pulse Rate Pulse Rate [Apical] 63 68 Respiratory Rate 20 21 Respiratory Effort / Characteristics Non-Labored Spontaneous Blood Pressure Blood Pressure [Right Arm] 149/63 H Blood Pressure Mean Blood Pressure Mean [Right Arm] 91 Pulse Oximetry 93 93 Oxygen Delivery Method Nasal Cannula Nasal Cannula Oxygen Flow Rate 2 1 Sepsis Recent Fever Within 48 Hours Sepsis New/Unexplained Change in Mental Status Sepsis Action Taken by Nursing Physical Exam GENERAL: Ill-appearing. HENT: Exam performed. -Head: Ecchymosis over her left periorbital area. -Right Ear: External ear normal. No mastoid tenderness. -Left Ear: External ear normal. No mastoid tenderness. -Mouth/Throat: The oropharynx is clear and moist. No trismus in the jaw. No dental abscesses or uvula swelling. No oropharyngeal exudate or tonsillar abscesses. EYES: Conjunctivae and EOM are normal. Pupils are equal, round, and reactive to light. Right eye exhibits no discharge. Left eye exhibits no discharge. No scleral icterus. NECK: No pain on palpation of C-spine. Neck supple. CV: Normal rate, regular rhythm, normal heart sounds and intact distal pulses. There is no peripheral edema. Palpable radial pulses bue. PULM/CHEST: Diminished breath sounds bilaterally. ABD: The abdomen is soft. MUSC/SKEL: Right-sided BKA. NEURO: Patient is disoriented and having shaking and having tremor, no focal seizure activity. No generalized seizure activity. SKIN: Diffuse ecchymosis. Course Course 0321: The patient was evaluated in room B6. A complete history and physical exam was performed Cardiac monitoring: An order was placed for continuous cardiac monitoring. The monitor shows a rate of 80 with sinus rhythm Patient was hypoxic to 85% on room air. Supplemental oxygen was started with nasal cannula. EMR reviewed. Patient does have a history of COPD. We will target the patient's oxygen saturation to be 88 to 92%. Will obtain labs and imaging. 0715: Vital signs stable on supplemental oxygen. On reausciltation of lungs the patient was having wheezing. DuoNeb and Solu-Medrol ordered for the patient. Labs do show acute kidney injury creatinine of 1.83. IV fluids started. Imaging shows no acute traumatic injury. Patient still confused. Will admit the patient for COPD exacerbation hypoxia and her acute kidney injury. Discussed with Dr. Araya who will evaluate the patient. Administered Medications Discontinued Medications Albuterol (Albut/Ipratrop 3mg/0.5mg Neb 3 Ml Vial) 3 ml NEB NOW STA Stop: 05/20/21 06:43 Last Admin: 05/20/21 06:52 Dose: 3 ml Documented by: [id number] Methylprednisolone (Methylprednisolone 125 Mg/2 Ml Vial) 125 mg IV NOW STA Stop: 05/20/21 06:43 Last Admin: 05/20/21 06:49 Dose: 125 mg Documented by: [id number] Medical Decision Making Laboratory Data Result diagrams: 05/20/21 03:39 05/20/21 03:39 Lab Results 05/20/21 05/20/21 05/20/21 Range/Units 03:39 03:39 03:39 WBC 10.64 (4.8-10.8) K/uL RBC 3.84 L (4.2-5.4) M/uL Hgb 11.2 L (12.0-16.0) g/dL POC Hgb (12.0-16.0) g/dl Hct 34.6 L (37-47) % POC Hct (37-47) % MCV 90.1 (80-100) fL MCH 29.2 (25-34) pg MCHC 32.4 (32-36) g/dL RDW Std Deviation 59.1 H (36.4-46.3) fL RDW Coeff of Isiah 18.0 H (11.5-14.5) % Plt Count 376 (130-400) K/uL MPV 9.8 (7.4-10.4) fL Immature Gran % (Auto) 0.2 % Neut % (Auto) 77.2 % Lymph % (Auto) 11.9 % Redwood % (Auto) 8.0 % Eos % (Auto) 2.6 % Baso % (Auto) 0.1 % Neut # (Auto) 8.21 H (1.4-6.5) K/uL Lymph # (Auto) 1.27 (1.2-3.4) K/uL Redwood # (Auto) 0.85 H (0.11-0.59) K/uL Eos # (Auto) 0.28 (0-0.5) K/uL Baso # (Auto) 0.01 (0-0.2) K/uL Immature Gran # (Auto) 0.02 (0.00-0.02) K/uL PT 10.2 (9.0-12.0) Seconds INR 1.0 (0.9-1.1) APTT 25.5 (21.0-31.0) Seconds PTT Ratio 1.0 VBG pH (7.36-7.41) VBG pCO2 (38-50) mmHg VBG pO2 mmHg VBG HCO3 mmol/L VBG O2 Saturation % VBG Base Excess mEq/L Barometric Pressure mm/Hg POC Sodium (135-144) mmol/L Sodium 141 (136-145) mmol/L POC Potassium (3.3-5.0) mmol/L Potassium 4.2 (3.5-5.1) mmol/L POC Chloride (101-112) mmol/L Chloride 105 (98-107) mmol/L Carbon Dioxide 30 (21-32) mmol/L POC Total CO2 (24-31) mmol/L Anion Gap 6.0 (3-11) POC Anion Gap (16-25) mmol/L POC BUN (7-18) mg/dl BUN 28 H (7-18) mg/dl Creatinine 1.83 H (0.6-1.2) mg/dl POC Creatinine (0.6-1.3) mg/dl Est Cr Clr Drug Dosing Not Reportable Est GFR ( Amer) 30.1 ml/min Est GFR (Non-Af Amer) 26.0 ml/min BUN/Creatinine Ratio 15.1 (10-20) Glucose 144 H (70-99) mg/dl POC Glucose (other) (70-99) mg/dl Calcium 9.2 (8.5-10.1) mg/dl POC Ioniz Calcium Jose (1.12-1.32) mmol/l Magnesium 2.2 (1.8-2.4) mg/dl Total Bilirubin 0.4 (0.2-1) mg/dl Direct Bilirubin 0.1 (0-0.2) mg/dl AST 15 (15-37) U/L ALT 11 L (12-78) U/L Alkaline Phosphatase 104 (45-117) U/L Total Creatine Kinase 83 (26-192) U/L Troponin I < 0.015 (0-0.045) ng/ml Total Protein 7.2 (6.4-8.2) gm/dl Albumin 3.0 L (3.4-5.0) gm/dl Lipase 67 L (73-393) U/L 05/20/21 05/20/21 Range/Units 03:39 03:44 WBC (4.8-10.8) K/uL RBC (4.2-5.4) M/uL Hgb (12.0-16.0) g/dL POC Hgb 11.6 L (12.0-16.0) g/dl Hct (37-47) % POC Hct 34 L (37-47) % MCV (80-100) fL MCH (25-34) pg MCHC (32-36) g/dL RDW Std Deviation (36.4-46.3) fL RDW Coeff of Isiah (11.5-14.5) % Plt Count (130-400) K/uL MPV (7.4-10.4) fL Immature Gran % (Auto) % Neut % (Auto) % Lymph % (Auto) % Redwood % (Auto) % Eos % (Auto) % Baso % (Auto) % Neut # (Auto) (1.4-6.5) K/uL Lymph # (Auto) (1.2-3.4) K/uL Redwood # (Auto) (0.11-0.59) K/uL Eos # (Auto) (0-0.5) K/uL Baso # (Auto) (0-0.2) K/uL Immature Gran # (Auto) (0.00-0.02) K/uL PT (9.0-12.0) Seconds INR (0.9-1.1) APTT (21.0-31.0) Seconds PTT Ratio VBG pH 7.38 (7.36-7.41) VBG pCO2 50 (38-50) mmHg VBG pO2 40 mmHg VBG HCO3 29 mmol/L VBG O2 Saturation 71.2 % VBG Base Excess 3.2 mEq/L Barometric Pressure 735.4 mm/Hg POC Sodium 140 (135-144) mmol/L Sodium (136-145) mmol/L POC Potassium 4.2 (3.3-5.0) mmol/L Potassium (3.5-5.1) mmol/L POC Chloride 101 (101-112) mmol/L Chloride (98-107) mmol/L Carbon Dioxide (21-32) mmol/L POC Total CO2 26 (24-31) mmol/L Anion Gap (3-11) POC Anion Gap 18.0 (16-25) mmol/L POC BUN 27 H (7-18) mg/dl BUN (7-18) mg/dl Creatinine (0.6-1.2) mg/dl POC Creatinine 1.8 H (0.6-1.3) mg/dl Est Cr Clr Drug Dosing Est GFR ( Amer) ml/min Est GFR (Non-Af Amer) ml/min BUN/Creatinine Ratio (10-20) Glucose (70-99) mg/dl POC Glucose (other) 144 H (70-99) mg/dl Calcium (8.5-10.1) mg/dl POC Ioniz Calcium Jose 1.18 (1.12-1.32) mmol/l Magnesium (1.8-2.4) mg/dl Total Bilirubin (0.2-1) mg/dl Direct Bilirubin (0-0.2) mg/dl AST (15-37) U/L ALT (12-78) U/L Alkaline Phosphatase (45-117) U/L Total Creatine Kinase (26-192) U/L Troponin I (0-0.045) ng/ml Total Protein (6.4-8.2) gm/dl Albumin (3.4-5.0) gm/dl Lipase (73-393) U/L Imaging Data My Impression: Chest x-ray negative. Airway clear. No pneumothorax. No consolidation. No cardiomegaly or cephalization.. No free air under the diaphragm. No fractures of the skeletal structures. Pelvis x-ray: No acute fracture dislocation Radiologist's Impression: Cervical Spine CT 05/20/21 03:28 CT SCAN OF THE CERVICAL SPINE CLINICAL HISTORY: Fall. COMPARISON STUDY: CT angiogram of the neck dated 03/13/2015. TECHNIQUE: CT scan of the cervical spine is performed from the skull base to the upper thoracic spine. Images are reviewed in the axial, sagittal, and coronal planes. IV contrast was not administered for this examination. A dose lowering technique was utilized adhering to the principles of ALARA. The examination is modestly degraded by motion artifact. FINDINGS: Skeletal structures: The skeletal structures are heterogeneously osteopenic. There is no evidence of fracture or subluxation involving the cervical spine. Vertebral body height and alignment are maintained. Anterior osteophytes are seen throughout. The odontoid process and lateral masses are intact. The atlantoaxial articulation is preserved noting productive degenerative change. The spinous processes appear intact. There is moderate to advanced multilevel cervical spondylosis. Uncovertebral and facet arthropathy contribute to neural foraminal stenosis at most levels. Intervertebral discs: There is moderate to severe disc space narrowing at C5-C6 and C6-C7. Mild disc space narrowing seen at the remaining cervical levels. Central canal: Large posterior disc osteophyte complexes at C5-C6 and C6-C7 likely contribute to acquired compromise of the central canal. Soft tissues: The prevertebral and paraspinous soft tissues are within normal limits. There is atherosclerotic calcification of the carotid bulbs. Calvarium: The visualized calvarium at the skull base appears intact. Brain parenchyma: Partially visualized brain parenchyma at the skull base is within normal limits. Sinuses and mastoids: The visualized paranasal sinuses are clear. The mastoid air cells are well pneumatized. Lung apices: Mild emphysematous change is noted at the apices. Apical lung parenchyma is otherwise clear as visualized. IMPRESSION: 1. There is no evidence of fracture or subluxation involving the cervical spine. 2. Osteopenia and spondylotic change as above. ACT 112: Negative or not required by law. Electronically signed by: Dmitry Cherry M.D. 05/20/2021 6:[address] 05/20/21 03:28 CT SCAN OF THE BRAIN WITHOUT IV CONTRAST CLINICAL HISTORY: Fall. COMPARISON STUDY: CT of the brain dated 04/28/2021. TECHNIQUE: Unenhanced axial CT scan of the brain is performed from the vertex to the skull base. A dose lowering technique was utilized adhering to the princip les of ALARA. The examination is modestly degraded by motion artifact. FINDINGS: Brain parenchyma: There are age-related involutional changes noting mild subcortical and periventricular microangiopathic change. There is no hemorrhage, mass effect, or evidence of acute territorial ischemia by CT criteria. Thapa- white matter differentiation is preserved. No extra-axial fluid collection is seen. Ventricles, sulci, cisterns: Prominent secondary to involutional change. Intracranial vasculature: There is atherosclerotic calcification of the cavernous carotid arteries. Calvarium: The skeletal structures are osteopenic. No depressed calvarial fracture is identified. Sinuses and mastoids: The paranasal sinuses are clear. The mastoid air cells are well pneumatized. Orbits: The bony orbits are grossly intact. IMPRESSION: There is no hemorrhage, mass effect, or evidence of acute territorial ischemia by CT criteria. ACT 112: Negative or not required by law. Electronically signed by: Dmitry Cherry M.D. 05/20/2021 6:26 AM Abdomen/Pelvis CT 05/20/21 03:46 CT SCAN OF THE ABDOMEN AND PELVIS WITHOUT IV CONTRAST CLINICAL HISTORY: Trauma. Fall. COMPARISON STUDY: Abdominal CT dated 12/02/2020. Chest CT scans dated 12/03/2020 and 11/15/2008. TECHNIQUE: CT scan of the abdomen and pelvis is performed from the lung bases to the proximal femora. Images are reviewed in the axial, sagittal, and coronal planes. IV contrast was not administered for this examination. Note that the examination was performed in significantly suboptimal fashion without IV contrast. There is also motion artifact, as well as streak artifact from the arm s which could not be elevated above the abdomen. A dose lowering technique was utilized adhering to the principles of ALARA. CT DOSE: 1299.50 mGy.cm FINDINGS: Lung bases: The heart is normal in size and without pericardial effusion. A 10 mm pulmonary nodule is again seen at the left lung base on image #11. The lung bases are otherwise clear noting bibasilar scarring/atelectasis. There is a small hiatal hernia. Liver: The unenhanced liver is normal in size, contour, and attenuation. There is no intrahepatic biliary ductal dilatation. Gallbladder: Surgically absent noting clips in the gallbladder fossa. Spleen: Normal in size and attenuation. Pancreas: The unenhanced pancreas is atrophic and grossly unremarkable. Adrenal glands: Unremarkable. Kidneys: The unenhanced kidneys demonstrate cortical atrophy and are without hydronephrosis. There is a 3 mm nonobstructing left renal calculus. A 1.5 cm cyst is noted in the right upper pole, and a 1.7 cm exophytic cyst arises from the left kidney. Abdominal vasculature: There is advanced atherosclerotic calcification of the abdominal aorta. An infrarenal abdominal aortic aneurysm measures 3.2 x 3.0 cm. Stents are noted in the iliac arteries as well as the right superficial femoral artery. Bowel: Mild/moderate fecal retention is seen throughout the colon. There is no bowel obstruction. 8 additional diverticulum is noted. The appendix is normal as visualized. Peritoneum: There is no intraperitoneal free air or abdominal ascites. Lymphadenopathy: None. Pelvic viscera: The bladder is distended but otherwise normal in appearance. The uterus and adnexa are normal as visualized. Postoperative change is noted in the groin bilaterally. Skeletal structures: The skeletal structures are heterogeneously osteopenic. There is moderate to advanced lumbosacral spondylosis as well as scoliosis. No lytic or blastic lesions are seen. IMPRESSION: 1. Significantly suboptimal examination without IV contrast. There is also streak and motion artifact 2. There is no evidence of solid organ injury in the abdomen or pelvis on this unenhanced examination. 3. There is a 3.2 cm infrarenal abdominal aortic aneurysm. 4. A 10 mm pathologically indeterminant pulmonary nodule is again seen in the left lower lobe. This is unchanged from recent prior studies but new dating back to older chest CTs. Neoplasm is not excluded. 5. Left-sided nephrolithiasis. 6. Additional findings as above. ACT 112: Negative or not required by law. Electronically signed by: Dmitry Cherry M.D. 05/20/2021 6:[address] 05/20/21 03:46 CT SCAN OF THE FACIAL BONES WITHOUT IV CONTRAST CLINICAL HISTORY: Fall. Facial injury. COMPARISON STUDY: CT of the brain performed concurrently on 05/20/2021. TECHNIQUE: High-resolution CT scan of the facial bones is performed. Images are reviewed in the axial, sagittal, and coronal planes. IV contrast was not administered for this examination. A dose lowering technique was utilized adhering to the principles of ALARA. The examination is significantly degraded by motion artifact. FINDINGS: The skeletal structures are heterogeneously osteopenic. There is no evidence of facial bone fracture. The bony orbits are intact and the orbital contents are within normal limits. The zygomatic arches, nasal bones, and pterygoid plates are preserved. The maxilla and mandible are intact. Degenerative change is noted in the temporomandibular joints. There are no layering blood products within the paranasal sinuses. The sinuses and mastoids are clear. The visualized calvarium and upper cervical spine are maintained. Partially imaged brain parenchyma is within normal limits. There are numerous dental caries. IMPRESSION: 1. There is no evidence of facial bone fracture noting a motion compromised examination. 2. Numerous dental caries are identified. Follow-up with dentistry is recommended. ACT 112: Negative or not required by law. Electronically signed by: Dmitry Cherry M.D. 05/20/2021 6:35 AM ECG Data Indication: + altered mental status Rate (beats per minute): 76 Rhythm: + normal sinus ECG Intervals/blocks: + Right Bundle branch block, + Normal QRS, + Normal [place] and + Normal QT-c ECG ST segments: + Normal ST segments [facility] Narrative 0321: The patient was evaluated in room B6. A complete history and physical exam was performed Cardiac monitoring: An order was placed for continuous cardiac monitoring. The monitor shows a rate of 80 with sinus rhythm Patient was hypoxic to 85% on room air. Supplemental oxygen was started with nasal cannula. EMR reviewed. Patient does have a history of COPD. We will target the patient's oxygen saturation to be 88 to 92%. Will obtain labs and imaging. 0715: Vital signs stable on supplemental oxygen. On reausciltation of lungs the patient was having wheezing. DuoNeb and Solu-Medrol ordered for the patient. Labs do show acute kidney injury creatinine of 1.83. IV fluids started. Imaging shows no acute traumatic injury. Patient still confused. Will admit the patient for COPD exacerbation hypoxia and her acute kidney injury. Discussed with Dr. Araya who will evaluate the patient. Impression & Plan KM (acute kidney injury), COPD exacerbation, Fall, CHI (closed head injury) Discharge Plan Visit Data Chief Complaint: Fall Stated Complaint: Fall ED Provider: Adiel Zhang Discharge Problem: KM (acute kidney injury), COPD exacerbation, Fall, CHI (closed head injury) Patient Disposition: Admitted As Inpatient Forms Stand Alone Forms: [facility] Prescriptions Prescriptions: No Action clopidogrel 75 mg tablet 75 mg PO DAILY Qty: 30 RF: 3 pentoxifylline 400 mg tablet extended release 400 mg PO TID RF: 0 gabapentin 300 mg capsule 300 mg PO UD RF: 0 tramadol 100 mg tablet 100 mg PO TID PRN (Reason: Pain) RF: 0 amlodipine [Norvasc] 5 mg Tablet 2.5 mg PO QAM 30 Days Qty: 15 RF: 0 furosemide 40 mg tablet 40 mg PO BID RF: 0 glipizide 5 mg tablet 5 mg PO DAILY RF: 0 oxybutynin chloride 5 mg tablet 5 mg PO BID RF: 0 venlafaxine 75 mg capsule,extended release 24hr 75 mg PO DAILY RF: 0 fluticasone propion-salmeterol [Advair Diskus] 250-50 mcg/dose blister with device 2 inh INHALATION DAILY RF: 0 atorvastatin 40 mg Tablet 40 mg PO QAM Qty: 30 RF: 0 aspirin [Aspirin Low Dose] 81 mg tablet,delayed release (DR/EC) 81 mg PO DAILY Qty: 30 RF: 0 Referrals Referrals: Og Baca MD [Primary Care Provider] -
[2021-05-20] MEDS ORDERED: SODIUM CHLORIDE 0.9% 1000ML 1,000 ML IV SCH (07:15)
--- NOTE | 2021-05-20 08:05 | History & Physical Report ---
Date of Service May 20, 2021 Assessment & Plan (1) Encephalopathy: Plan: Patient presents with altered mental state encephalopathy. Causes of her encephalopathy are multifactorial including hypoxemia from chronic respiratory failure. Could be metabolic encephalopathy from infection is from her chronic peripheral artery disease. In the past she is also toxic encephalopathy from medications. Supplemental oxygen will be provided to exclude hypoxemia. Certainly her COPD can be progressing to the point where she needs it. Treat her COPD with inhaled medications. Blood cultures and urine cultures have been obtained. There is no pneumonia on chest x-ray no intra-abdominal findings on and abdomen pelvis CT. Covid test negative. Clinicaly cough and lung disease will treat for bronchitis with Azithro, also look at foot for osteo left 5th MT area (2) COPD exacerbation: Plan: Patient continue on Advair when she is too confused and will use duo nebs on scheduled basis. Not appear to be in acute exacerbation with steroids systemically at this time (3) KM (acute kidney injury): Plan: Patient with acute kidney injury on top of chronic kidney disease stage II she however does have some mild pulmonary edema on chest x-ray. was given ivf in ER will follow as pt seems capable of eating and drinking (4) Diabetes: Plan: Patient typically on oral agents of glipizide. This will be held at this time bolus insulin be employed, if uncontrolled will have a glycemic management consult (5) PAD (peripheral artery disease): Plan: Patient reportedly is on aspirin Plavix and pentoxifylline this was along with atorvastatin 40 these are continued at this time (6) DVT prophylaxis: Plan: Patient be on heparin for DVT prevention History of Present Illness Chief Complaint: 72-year-old female who was recently admitted and discharged our hospital for toxic encephalopathy felt to be secondary to pain medication and metabolic encephalopathy felt to be secondary to chronic leg cellulitis due to peripheral artery disease. She presents in an altered state with hypoxemia from home via EMS. Poorly her hypoxia is fairly new although she does have a longstanding history of COPD. Typically not on supplemental oxygen at home. In the ER she had a substantial evaluation including images of her head facial bones cervical spine and abdomen pelvis. There is no significant abnormalities found on any of those studies with the exception of longstanding infrarenal aneurysm and pulmonary nodule. Patient has a chest x-ray with increased vascular markings but she does have a history of typical furosemide use. I do not see a formal echocardiogram to determine a type or stage of heart failure that she may have. Her EKG is nonfocal she initially does not have any significant infectious etiologies that can be detected by initial screening labs but she remains a ltered and hypoxic. Primary Care Provider: Og Baca MD Allergies Allergy/AdvReac Type Severity Reaction Status Date / Time hydrogen peroxide Allergy Unknown ALLERGY Verified 05/20/21 07:48 REPORTED "PEROXIDE"-red and itchy lorazepam [From Ativan] AdvReac Mild flushed BP Verified 05/20/21 07:48 elevated , COMPLAINTS OF SKIN BURNING Home Medications Medication Instructions Recorded Confirmed Type fluticasone 250 mcg-salmeterol 50 2 inh INHALATION DAILY 11/13/20 05/20/21 History mcg/dose blistr powdr for inhalation (Advair Diskus) furosemide 40 mg tablet 40 mg PO BID 11/13/20 05/20/21 History glipizide 5 mg tablet 5 mg PO DAILY 11/13/20 05/20/21 History oxybutynin chloride 5 mg tablet 5 mg PO BID 11/13/20 05/20/21 History venlafaxine 75 mg capsule,extended 75 mg PO DAILY 11/13/20 05/20/21 History release 24 hr aspirin 81 mg tablet,delayed 81 mg PO DAILY #30 tab 11/23/20 05/20/21 Rx release (Aspirin Low Dose) atorvastatin 40 mg tablet 40 mg PO QAM #30 tab 11/23/20 05/20/21 Rx clopidogrel 75 mg tablet 75 mg PO DAILY #30 tab 04/27/21 05/20/21 Rx gabapentin 300 mg capsule 300 mg PO UD 04/28/21 05/20/21 History pentoxifylline 400 mg 400 mg PO TID 04/28/21 05/20/21 History tablet,extended release tramadol 100 mg tablet 100 mg PO TID PRN 04/28/21 05/20/21 History amlodipine 5 mg tablet (Norvasc) 2.5 mg PO QAM 30 Days #15 tab 05/02/21 05/20/21 Rx meloxicam 15 mg tablet (Mobic) 15 mg PO DAILY 05/20/21 05/20/21 History Past Med/Surg History Medical History (Updated 05/20/21 @ 08:10 by Adam Jordan MD) Carotid stenosis, asymptomatic Cellulitis of both lower extremities COPD (chronic obstructive pulmonary disease) Delirium Diabetes Hx of right BKA Hypokalemia PAD (peripheral artery disease) Surgical History History of right below knee amputation Social History Smoking Status: Current every day smoker Tobacco Type: Cigarettes Cigarettes Per Day: 1 PPD; Second Hand Exposure: No; Hx Alcohol Use: No Hx Substance Use: No Preferred Language: French Event Marketing Coordinator Required: No Beliefs That Will Affect Care: None marital status: Unknown Current Living Situation: Alone How many Children do You have: 2 Feels Safe at Home: Yes Assistive Devices: Wheelchair Review of Systems Review of Systems: Moderate distress and fatigue no headache, no visual changes no speech or swallowing issues no chest pain, pressure or palpitations shortness of breath, cough wheezes no abdominal pain, nausea or vomiting, diarrhea or constipation no dysuria, hematuria or frequency, + incontinence no focal joint pain or swelling no back pain, CVA tenderness or radicular pain no bruising, bleeding or rashes no focal signs of weakness or numbness or altered sensation no complaints of anxiety or depression.. Physical Exam Physical Exam: The patient appeared chornically ill Vital signs as documented. Head exam is normocephalic atraumatic Neck is without JVD, thyromegaly, or carotid bruits. Lungs coarse rhonchi in left lung, right only scant, exp wheezes Cardiac exam, Rhythm is regular.. systolic murmur, no rubs or gallops. Abdominal exam reveals normal bowel sounds, soft non tender, no masses Extremitie R bka, left leg with arterial insufficiency changes to skin, healed ulcer left 5th MT, pt states is increasingly painful of late poor pulses despite previouls peripheral intervention Neurologic exam is alert and oriented x 3 Skin is with changes to left foot. [place] tissue reddened flaking skin Psychologically is without concerns for anxiety or depression Results & Data Results & Data ([facility]) Vital Signs (Past 12 Hours) Vital Signs Temp Pulse Pulse Resp BP BP Pulse Ox 05/20/21 07:30 63 17 138/66 92 05/20/21 07:00 60 12 134/47 L 93 05/20/21 06:52 68 21 93 05/20/21 06:00 63 20 149/63 H 93 05/20/21 05:30 62 18 141/68 H 93 05/20/21 04:30 62 20 122/43 L 91 05/20/21 04:01 83 20 122/40 L 89 L 05/20/21 03:50 90 05/20/21 03:25 69 18 129/78 91 05/20/21 03:18 98.2 F 69 18 129/78 86 L ECG Additional Comments: nsr PG Care Time/CCT Total # of Minutes Spent Total Time Spent with Patient: Total time spent is greater than 50% in coordination of care (as documented) at patient's floor/unit and/or counseling patient: Coding Level of Care Code 16347 Initial Inpt Care Lvl 3 Diagnoses COPD exacerbation J44.1 KM (acute kidney injury) N17.9 Diabetes E11.9 PAD (peripheral artery disease) I73.9 Encephalopathy G93.40 DVT prophylaxis Z29.9
--- NOTE | 2021-05-20 08:07 | XRay Report ---
XR pelvis 1-2V routine HISTORY: 80 years-old Female fall acute pelvic pain status post fall COMPARISON: CT abdomen and pelvis of same day TECHNIQUE: AP view of the pelvis FINDINGS: Demineralized appearance the bones. Moderate osteoporosis of the hips. No acute fracture, dislocation or avascular necrosis. Degenerative changes of the spine and pelvis. Bilateral iliac stent graft. Va scular stent of the right groin with surgical clip of the left hemipelvis. IMPRESSION: No acute fracture. ACT 112: Negative or not required by law. The above report was generated using voice recognition software. It may contain grammatical, syntax o r spelling errors. Electronically signed by: Carlos Monsivais M.D. 05/20/2021 8:06 AM
--- NOTE | 2021-05-20 08:17 | XRay Report ---
XR chest 1V portable HISTORY: 80 years-old Female fall acute chest trauma status post fall COMPARISON: CT abdomen and pelvis of same day, chest radiograph 04/28/2021 TECHNIQUE: Portable AP view the chest FINDINGS: Cardiomediastinal and hilar silhouettes are within normal limits. Unchanged right hemidiaphragmatic e levation. Progressively worsened interstitial coarsening. Degenerative changes of the shoulders and s pine. Cholecystectomy. IMPRESSION: Progressively worsened interstitial coarsening may reflect pulmonary edema versus interst itial pneumonitis. ACT 112: Negative or not required by law. The above report was generated using voice recognition software. It may contain grammatical, syntax o r spelling errors. Electronically signed by: Carlos Monsivais M.D. 05/20/2021 8:15 AM
[2021-05-20] MEDS ORDERED: ONDANSETRON INJ 2 MG/ML 2 ML VIAL IV PRN (09:38)
[2021-05-20] MEDS ORDERED: ALUMINUM/MAGNESIUM SUSP 30 ML UDC PO PRN (09:38)
[2021-05-20] MEDS ORDERED: GLUCAGON FOR INJ 1 MG VIAL SQ PRN (10:17)
[2021-05-20] MEDS ORDERED: DEXTROSE 50% 50 ML SYRINGE IV PRN (10:17)
[2021-05-20] MEDS ORDERED: GLUCOSE 40% GEL 15 GM TUBE PO PRN (10:17)
[2021-05-20] MEDS ORDERED: GLUCOSE 10 TABS/TUBE PO PRN (10:17)
[2021-05-20] MEDS ORDERED: CARBOHYDRATES FOR HYPOGLYCEMIA PO PRN (10:17)
[2021-05-20] MEDS ORDERED: AZITHROMYCIN 500 MG in DEXTROSE 5% 250 ML IV ONE (10:30)
[2021-05-20] MEDS: PENTOXIFYLLINE 400MG EXT REL TAB PO SCH ×3 (11:03→21:43)
[2021-05-20] MEDS: ASPIRIN 81 MG ECTAB PO SCH (11:04)
[2021-05-20] MEDS: ATORVASTATIN 40 MG TAB PO SCH (11:04)
[2021-05-20] MEDS: CLOPIDOGREL BISULFATE 75 MG TAB PO SCH (11:04)
[2021-05-20] MEDS: FLUTICASONE/VILANTEROL 100/25MCG 14 PUFFS/INHALER INH SCH (11:05)
[2021-05-20] MEDS: HEPARIN SOD 5,000 UNIT/0.5 ML VIAL SQ SCH ×2 (11:05→21:43)
[2021-05-20 11:43] LABS: Appearance Urine Clear (Clear); Bilirubin Urine Negative (Negative); Blood Urine Negative (Negative); Color Urine Yellow; Glucose Urine UA Negative (Negative); Ketones Urine Negative (Negative); Leukocyte Esterase Urine Negative (Negative); Nitrite Urine Negative (Negative); Protein Urine Negative (Negative); Specific Gravity Urine 1.011 (1.000-1.030); Urobilinogen Urine Negative (Negative); pH Urine 5.5 (4.5-7.5)
--- NOTE | 2021-05-20 11:50 | CT Scan Report ---
CT SCAN OF THE LEFT FOOT WITHOUT IV CONTRAST CLINICAL HISTORY: Fifth toe infection. COMPARISON STUDY: Radiographs of the left foot dated 01/02/2021. TECHNIQUE: CT scan of the left foot is performed from the distal tibia and fibula to the base of the foot. Images are reviewed in the axial, sagittal, and coronal planes. IV contrast was not administere d for this examination. A dose lowering technique was utilized adhering to the principles of ALARA. N ote that interpretation is suboptimal without plain film correlate. CT DOSE: 154.76 mGy.cm FINDINGS: The skeletal structures are osteopenic. No fracture is identified. Moderate osteoarthritic change is noted at the first metatarsophalangeal joint. Milder degenerative changes seen throughout t he remainder of the foot. There is a large plantar calcaneal enthesophyte. Dermal thickening is seen throughout the lateral aspect of the foot. There is a cutaneous ulceration lateral to the head of the fifth metatarsal with surrounding soft tissue induration. There is no evidence of organized fluid co llection on this unenhanced examination. There is focal erosive change identified within the lateral head of the fifth metatarsal, best seen on image #213. This is typical for osteomyelitis. No addition al foci of cortical destruction are identified. No soft tissue gas is seen. The Achilles tendon is in tact as visualized. There is generalized atrophy of the regional musculature. IMPRESSION: There is a cutaneous ulceration overlying the head of the fifth metatarsal with evidence of surrounding cellulitis and osteomyelitis of the fifth metatarsal head. See above. ACT 112: Negative or not required by law. Dictated: 05/20/2021 10:50 AM Transcribed: 05/20/2021 11:36 AM Kayla [id number] HIRA_Ken Electronically signed by: Dmitry Cherry M.D. 05/20/2021 11:49 AM
--- NOTE | 2021-05-20 12:06 | Electrocardiogram Report ---
Test Reason : Blood Pressure : / mmHG Vent. Rate : 076 BPM Atrial Rate : 076 BPM P-R Int : 134 ms QRS Dur : 110 ms QT Int : 434 ms P-R-T Axes : 074 -45 022 degrees QTc Int : 488 ms Poor data quality, interpretation may be adversely affected Sinus rhythm with Premature atrial complexes Possible Left atrial enlargement Incomplete right bundle branch block Left anterior fascicular block Abnormal ECG When compared with ECG of 30-APR-2021 18:45, QT has lengthened Confirmed by Kevin Puri ([id number]) on 05/20/2021 12:06:16 PM Referred By: REFERRED SELF Confirmed By:Kevin Puri
[2021-05-20] MEDS: INSULIN ASPART 100 UNITS/ML 3 ML PEN SC SCH ×3 (13:43→21:45)
[2021-05-20] MEDS ORDERED: VANCOMYCIN CONSULT ACTIVE PRN (16:21)
[2021-05-20] MEDS ORDERED: PIPERACILL/TAZOBAC CONSULT ACTIVE PRN (16:22)
[2021-05-20] MEDS ORDERED: VANCOMYCIN HCL 1,250 MG in SODIUM CHLORIDE 0.9% 250 ML IV ONE (17:00)
[2021-05-20] MEDS: PIPERACILLIN/TAZOBACTAM 4.5 GM in DEXTROSE 5% 100 ML IV SCH ×2 (17:12→21:47)
--- NOTE | 2021-05-20 18:44 | Orthopedic Consultation ---
Date of Service May 20, 2021 Assessment & Plan (1) Chronic ulcer of left foot: I talked to her about her diagnosis and treatment options at bedside. She has a small area of osteomyelitis of the head of the fifth metatarsal. The only definitive treatment would be a partial amputation. I am concerned that a partial amputation of an ischemic limb might not heal and may lead to a below- knee amputation. That would cause significant morbidity given the below-knee amputation on the contralateral side. At this point I would recommend continuing IV antibiotics. We will see how she does medically. I also recommend a consult from Dr. Blanco Jha to see if we can increase the per fusion to her left foot. Orthopedics will continue to follow. History of Present Illness Reason for Consultation: Left foot ulcer. Requesting Physician: . Attending Physician: Adam Jordan MD Madhuri is a pleasant 80-year-old female with a history of peripheral vascular disease. She underwent a right below-knee amputation about [address] Padilla. She has a prosthetic and she is a minimal ambulator. She is now been dealing with an ischemic ulcer on the lateral aspect of her left fifth MTP joint. For the past 6 months she has been seeing wound care and has been on and off antibiotics. She recently saw Dr. Jha and he did a stenting of her left common iliac about 4 weeks ago. She presents the emergency room today with some encephalopathy. It is unknown if it is coming from medications or possibly an infection of her left foot. She was sent for a CT scan of her left foot and it showed a small erosion at the head of the fifth metatarsal. This represents a small area of osteomyelitis. Orthopedics was consulted to evaluate and treat.. Allergies Allergy/AdvReac Type Severity Reaction Status Date / Time hydrogen peroxide Allergy Unknown ALLERGY Verified 05/20/21 07:48 REPORTED "PEROXIDE"-red and itchy lorazepam [From Ativan] AdvReac Mild flushed BP Verified 05/20/21 07:48 elevated , COMPLAINTS OF SKIN BURNING Home Medications Medication Instructions Recorded Confirmed Type fluticasone 250 mcg-salmeterol 50 2 inh INHALATION DAILY 11/13/20 05/20/21 History mcg/dose blistr powdr for inhalation (Advair Diskus) furosemide 40 mg tablet 40 mg PO BID 11/13/20 05/20/21 History glipizide 5 mg tablet 5 mg PO DAILY 11/13/20 05/20/21 History oxybutynin chloride 5 mg tablet 5 mg PO BID 11/13/20 05/20/21 History venlafaxine 75 mg capsule,extended 75 mg PO DAILY 11/13/20 05/20/21 History release 24 hr aspirin 81 mg tablet,delayed 81 mg PO DAILY #30 tab 11/23/20 05/20/21 Rx release (Aspirin Low Dose) atorvastatin 40 mg tablet 40 mg PO QAM #30 tab 11/23/20 05/20/21 Rx clopidogrel 75 mg tablet 75 mg PO DAILY #30 tab 04/27/21 05/20/21 Rx gabapentin 300 mg capsule 300 mg PO UD 04/28/21 05/20/21 History pentoxifylline 400 mg 400 mg PO TID 04/28/21 05/20/21 History tablet,extended release tramadol 100 mg tablet 100 mg PO TID PRN 04/28/21 05/20/21 History amlodipine 5 mg tablet (Norvasc) 2.5 mg PO QAM 30 Days #15 tab 05/02/21 05/20/21 Rx meloxicam 15 mg tablet (Mobic) 15 mg PO DAILY 05/20/21 05/20/21 History Past Med/Surg History Medical History Carotid stenosis, asymptomatic Cellulitis of both lower extremities COPD (chronic obstructive pulmonary disease) Delirium Diabetes Hx of right BKA Hypokalemia PAD (peripheral artery disease) Surgical History History of right below knee amputation Social History Smoking Status: Current every day smoker Tobacco Type: Cigarettes Cigarettes Per Day: 1.5 PPD; Second Hand Exposure: No; Do You Dip or Chew Tobacco: No; Tobacco Cessation Education Requested by Patient: No Hx Alcohol Use: No Hx Substance Use: No Preferred Language: Tunisian Communication Ability: Effective Molding Press Operator Required: No Beliefs That Will Affect Care: None marital status: Unknown Current Living Situation: Alone How many Children do You have: 2 Other Information That Helps Us Care for You: No Feels Safe at Home: Yes Safety Concerns: Feels Safe At This Time Assistive Devices: Glasses Review of Systems All systems reviewed & are unremarkable except as noted in HPI & below. Physical Exam On physical examination of the left foot, there is a 1.5 cm ulceration on the lateral aspect of the fifth MTP joint. There is some moderate cellulitis throughout. I do not see any purulent discharge.. Constitutional WD/WN, vitals as above Eyes PERRL, conjunctivae normal, anicteric sclerae ENMT external ear and nose normal, oropharynx normal Neck trachea midline, no thyromegaly Respiratory normal respiratory effort Cardiovascular RRR, no murmur, no edema Gastrointestinal (Abdomen) normal bowel sounds, soft, nontender, no hepatosplenomegaly Psychiatric A+Ox3, euthymic affect Results & Data Results & Data Laboratory Results . Diagnostic Findings CT scan of the left foot was reviewed personally by myself and there is a small cortical disruption at the head of the fifth metatarsal.. PG Care Time/CCT Total # of Minutes Spent Total Time Spent with Patient: Total time spent is greater than 50% in coordination of care (as documented) at patient's floor/unit and/or counseling patient: Coding Level of Care Code 48629 Inpt Consult Level 4 Diagnoses Chronic ulcer of left foot L97.529
--- NOTE | 2021-05-20 20:06 | Pharmacy Report ---
Pharmacy [facility] Short Note - Date of Service May 20, 2021 - Assessment & Plan Assessment 80 year old F receiving Vancomycin and Zosyn for treatment of osteomyelitis of left foot. Recurrent infection. Pertinent microbiologic data includes: + MRSA OF LEFT FOOT MARCH 2021 Plan Vancomycin * Loading dose: Vancomycin 1250mg IV x 1 * Maintenance dose of 1000 mg IV every 24h * Cr is acutely elevated, will reassess labs in AM to confirm dose is still appropriate and order trough Zosyn 4.5g IV q8h pending labs Pharmacy will continue to follow and will adjust dose/frequency as necessary. Thank you.
[2021-05-20] MEDS: guaiFENesin 600 MG TABCR PO SCH (21:42)
[2021-05-21 05:01] LABS: Hematocrit (blood only) 37.2 % (37-47); Hemoglobin 12.1 g/dL (12.0-16.0); Mean Corpuscular Hemoglobin 29.1 pg (25-34); Mean Corpuscular Hgb Conc 32.5 g/dL (32-36); Mean Corpuscular Volume 89.4 fL (80-100); Platelet Count 326 K/uL (130-400); RDW Coefficient of Variation 17.3 % (11.5-14.5); Red Blood Count 4.16 M/uL (4.2-5.4); White Blood Count 11.31 K/uL (4.8-10.8)
[2021-05-21 05:18] LABS: BUN Creatinine Ratio 19.7 (10-20); Calcium 8.9 mg/dl (8.5-10.1); Est GFR (African American) 46.4 ml/min; Potassium 4.3 mmol/L (3.5-5.1)
[2021-05-21] MEDS: PIPERACILLIN/TAZOBACTAM 4.5 GM in DEXTROSE 5% 100 ML IV SCH ×2 (06:40→13:34)
[2021-05-21] MEDS: ACETAMINOPHEN 325 MG TAB PO PRN (07:50)
[2021-05-21] MEDS: AZITHROMYCIN 250 MG TAB PO SCH (07:51)
[2021-05-21] MEDS: CLOPIDOGREL BISULFATE 75 MG TAB PO SCH (07:51)
[2021-05-21] MEDS: ASPIRIN 81 MG ECTAB PO SCH (07:51)
[2021-05-21] MEDS: guaiFENesin 600 MG TABCR PO SCH ×2 (07:51→20:56)
[2021-05-21] MEDS: PENTOXIFYLLINE 400MG EXT REL TAB PO SCH ×3 (07:51→20:57)
[2021-05-21] MEDS: ATORVASTATIN 40 MG TAB PO SCH (07:51)
[2021-05-21] MEDS: FLUTICASONE/VILANTEROL 100/25MCG 14 PUFFS/INHALER INH SCH (07:52)
[2021-05-21] MEDS: HEPARIN SOD 5,000 UNIT/0.5 ML VIAL SQ SCH ×2 (07:52→20:56)
[2021-05-21] MEDS: INSULIN ASPART 100 UNITS/ML 3 ML PEN SC SCH ×4 (07:52→20:55)
[2021-05-21 08:08] LABS: Estimated Average Glucose 131 mg/dl; Hemoglobin A1C 6.2 % (4.5-5.6)
--- NOTE | 2021-05-21 11:37 | Ultrasound Report ---
ULTRASOUND ANKLE-BRACHIAL INDICES CLINICAL HISTORY: Toe pressures. COMPARISON STUDY: No priors. FINDINGS: Toe pressures were assessed in ultrasound. This cannot be performed on the right due to a h istory of below-knee amputation. Right brachial pressure measures 148. Pressures in the left first to e measure 33 for a toe brachial index of 0.22. IMPRESSION: Left toe pressure assessment as above. Dictated: 05/21/2021 10:39 AM Transcribed: 05/21/2021 10:56 AM Dilia [id number] HIRA_Adam Electronically signed by: Dmitry Cherry M.D. 05/21/2021 11:35 AM
[2021-05-21] MEDS: VANCOMYCIN HCL 1,000 MG in SODIUM CHLORIDE 0.9% 250 ML IV SCH (12:05)
--- NOTE | 2021-05-21 14:05 | Vascular Medicine Consultation ---
Date of Consultation May 21, 2021 Assessment & Plan (1) PAD (peripheral artery disease): 2. Altered mental status 3. Osteomyelitis/left lower extremity cellulitis/nonhealing left lower extremity ulcerations 4. Suspected chronic venous insufficiency 5. Type 2 diabetes 6. Left carotid artery, subclavian artery disease 7. Acute kidney injury Patient with lateral foot ulceration in setting of osteomyelitis. Dr. Carroll plans on partial amputation. Despite recent iliac stenting, prior SFA intervention still with reduced toe pressures borderline for wound healing. Reviewed prior angiography. Patient has three-vessel runoff to the foot. Dominant vessel to the foot is her EDITH which has an 80% stenosis. Will attempt to optimize perfusion with angioplasty to EDITH. Even with successful revascularization prognosis for foot guarded due to severe small pedal vessel disease/microvascular disease. Proceed with angiography this afternoon. Please keep n.p.o. History of Present Illness Attending Physician: Bossman Alexander MD History of Present Illness Mrs. Avila is a pleasant 80 year old female with PAD/critical limb ischemia post left common iliac artery stenting 04/27/2021 readmitted with altered mental status and left lower extremity osteomyelitis. Medical history significant for nonhealing left lower extremity wounds, history of right BKA, carotid artery disease post left CEA, left subclavian artery disease, chronic venous insufficiency, type 2 diabetes, tobacco abuse, COPD, urge incontinence, spinal stenosis, chronic pain with peripheral neuropathy. Patient had previously undergone left SFA angioplasty with CELSO and common iliac stenting 11/2020. Post procedure toe pressures still reduced and has been dealing with a nonhealing ulceration over the lateral aspect of her fifth MTP joint. Underwent stenting of left DEV with a single (7 x 37 mm) covered stent. Procedure uncomplicated. Brought back to ED the following day by her family due to confusion/inability to follow commands. Noted to have increased pain/redness of her left foot, responded to broad spectrum antibiotics. Brought back by family yesterday after multiple falls at home, hypoxic on presentation. CT scan left foot revealed evidence of osteomyelitis involving fifth metatarsal head. Repeat TBI today showed toe pressure of 33 (TBI 0.22). Allergies Allergy/AdvReac Type Severity Reaction Status Date / Time hydrogen peroxide Allergy Unknown ALLERGY Verified 05/20/21 07:48 REPORTED "PEROXIDE"-red and itchy lorazepam [From Ativan] AdvReac Mild flushed BP Verified 05/20/21 07:48 elevated , COMPLAINTS OF SKIN BURNING Home Medications Medication Instructions Recorded Confirmed Type fluticasone 250 mcg-salmeterol 50 2 inh INHALATION DAILY 11/13/20 05/20/21 History mcg/dose blistr powdr for inhalation (Advair Diskus) furosemide 40 mg tablet 40 mg PO BID 11/13/20 05/20/21 History oxybutynin chloride 5 mg tablet 5 mg PO BID 11/13/20 05/20/21 History venlafaxine 75 mg capsule,extended 75 mg PO DAILY 11/13/20 05/20/21 History release 24 hr aspirin 81 mg tablet,delayed 81 mg PO DAILY #30 tab 11/23/20 05/20/21 Rx release (Aspirin Low Dose) atorvastatin 40 mg tablet 40 mg PO QAM #30 tab 11/23/20 05/20/21 Rx clopidogrel 75 mg tablet 75 mg PO DAILY #30 tab 04/27/21 05/20/21 Rx gabapentin 300 mg capsule 300 mg PO UD 04/28/21 05/20/21 History pentoxifylline 400 mg 400 mg PO TID 04/28/21 05/20/21 History tablet,extended release tramadol 100 mg tablet 100 mg PO TID PRN 04/28/21 05/20/21 History amlodipine 5 mg tablet (Norvasc) 2.5 mg PO QAM 30 Days #15 tab 05/02/21 05/20/21 Rx meloxicam 15 mg tablet (Mobic) 15 mg PO DAILY 05/20/21 05/20/21 History Patient History Medical History Carotid stenosis, asymptomatic Cellulitis of both lower extremities COPD (chronic obstructive pulmonary disease) Delirium Diabetes Hx of right BKA Hypokalemia PAD (peripheral artery disease) Surgical History History of right below knee amputation Social History Smoking Status: Current every day smoker Tobacco Type: Cigarettes Cigarettes Per Day: 1.5 PPD; Second Hand Exposure: No; Do You Dip or Chew Tobacco: No; Tobacco Cessation Education Requested by Patient: No Hx Alcohol Use: No Hx Substance Use: No Preferred Language: Mozambican Communication Ability: Effective Shrimp Boat Captain Required: No Beliefs That Will Affect Care: None marital status: Unknown Current Living Situation: Alone How many Children do You have: 2 Other Information That Helps Us Care for You: No Feels Safe at Home: Yes Safety Concerns: Feels Safe At This Time Assistive Devices: Glasses Review of Systems Review of Systems: All systems reviewed & are unremarkable except as noted in HPI & below Physical Exam Physical Exam: General: Comfortable, no acute distress. Lungs: Clear to auscultation Cardiac: Regular rate and rhythm. No appreciable murmur, gallop or rub Abdomen: Soft, mild tenderness Extremities/Vascular: Right PUBLIC HEALTH OFFICER pulse intact. Left PUBLIC HEALTH OFFICER pulse intact. Diminished left popliteal pulse. --Left lower extremity with scaling over anterior valente with erythema extending into foot --Left lateral foot wound <1cm, no drainage --< 1 cm open area over dorsal aspect of foot with mild surrounding erythema --Palpable DP pulse. No PT pulse. Sluggish cap refill. Results & Data ([facility]) Vital Signs (Past 12 Hours) Vital Signs Temp Pulse Resp BP Pulse Ox 05/21/21 11:23 98.4 F 55 L 20 145/47 H 96 05/21/21 08:00 97.9 F 57 L 16 148/62 H 94 05/21/21 04:00 97.9 F 52 L 16 154/60 H 93 PG Care Time/CCT Total # of Minutes Spent Total Time Spent with Patient: Total time spent is greater than 50% in coord ination of care (as documented) at patient's floor/unit and/or counseling patient: Coding Level of Care Code 74041 Initial Inpt Care Lvl 3 Diagnoses PAD (peripheral artery disease) I73.9
[2021-05-21] MEDS ORDERED: niCARdipine HCL INJ 2.5 MG/ML 10 ML AMP ONE (14:30)
[2021-05-21] MEDS ORDERED: fentaNYL citrate 100 MCG/2 ML VIAL ONE (14:30)
[2021-05-21] MEDS ORDERED: MIDAZOLAM HCL 5 MG/ML 1 ML VIAL ONE (14:30)
[2021-05-21] MEDS ORDERED: HEPARIN (PORCINE) 1000 UNIT/ML 10 ML (CATH LAB USE ONLY) ONE (14:31)
[2021-05-21] MEDS ORDERED: NITROGLYCERIN/D5W 100MCG/ML 20ML SYR ONE (14:36)
--- NOTE | 2021-05-21 16:08 | Pre Anesthesia Assessment ---
Date of Service May 21, 2021 Pre Sedation Assessment Vital Signs Temp Pulse Resp BP Pulse Ox 05/21/21 11:23 98.4 F 55 L 20 145/47 H 96 05/21/21 08:00 97.9 F 57 L 16 148/62 H 94 05/21/21 04:00 97.9 F 52 L 16 154/60 H 93 05/21/21 00:00 97.7 F 55 L 14 140/70 98 05/20/21 20:57 97.7 F 47 L 16 146/59 H 95 Cardiovascular RRR, no murmur, no edema Respiratory normal respiratory effort, lungs clear to auscultation Pre-Sedation Airway Assessment Smoking Status: Current every day smoker Hx Sleep Apnea: No Hx Difficult Intubation: No Short, Thick Neck: Yes Thyromental Distance: > or= 3.5 Finger Breadths Oral Cavity: + WNL Mallampati Class: III ASA: ASA3 NPO Status Date of Last Intake of Fluids: 05/21/21 Time of Last Intake of Fluids: 09:00 Date of Last Intake of Solid Food: 05/21/21 Time of Last Intake of Solid Foods: 09:00 Procedure Planning Contraindications for Sedation: none Current Medications Reviewed: Yes Notes The planned sedation has been discussed with the patient. Informed Consent was obtained. I have identified the patient, determined the appropriateness of sedation and have assessed the patient immediately prior to the procedure. All medicine(s) and interventions are by my order.
--- NOTE | 2021-05-21 16:34 | Hospitalist Progress Note ---
Date of Service May 21, 2021 Assessment & Plan (1) Foot osteomyelitis, left: Plan: Madhuri is a 80-year-old female with a past medical history of peripheral artery disease, COPD, pulmonary nodule, renal insufficiency, right BKA, and chronic left foot ulcerations who presented with encephalopathy and to remains for treatment of a left lower extremity osteomyelitis. Left fifth osteomyelitis Vanco/Zosyn converted to Vanco/cefepime/Flagyl Ortho consulted. Anticipate partial amputation following optimization with revascularization Vascular medicine consulted, see below. Anticipate angioplasty to the left EDITH today with guarded prognosis. Blood cultures pending, no growth to date History of MRSA Continue to follow (2) Encephalopathy: Plan: Acute mixed metabolic and respiratory encephalopathy Altered factorial including hypoxemia from chronic respiratory failure and metabolic in the setting of left foot cellulitis with chronic peripheral artery disease. Has had a past history of toxic encephalopathy which may also contribute. - Supplemental oxygen will be provided to exclude hypoxemia. COPD can be progressing to the point where she needs it. Continue COPD inhalers -Blood cultures 05/20 pending, no growth to date Urine culture no growth to date (3) COPD exacerbation: Plan: Continue Advair DuoNebs scheduled No acute exacerbation with steroids on evaluation today (4) KM (acute kidney injury): Plan: KM on CKD 2, some mild pulmonary edema on admitting chest x-ray Creatinine decreasing near baseline 1.28 05/21 Baseline less than 1.2 (5) Diabetes: Plan: Oral glipizide held Basal bolus Adequate glycemic control [id number] this afternoon (6) PAD (peripheral artery disease): Plan: Continue aspirin, Plavix, pentoxifylline Continue atorvastatin Vascular medicine consulted for left lower extremity evaluation with poor healing ulcers. Ortho planning on partial amputation but would benefit from optimization of blood flow prior. Seen by Dr. Jha this morning, prior angiography reviewed. Anticipate perfusion optimization with EDITH angioplasty this afternoon, although noted that even with successful revascularization prognosis is guarded due to small vessel and microvascular disease. (7) DVT prophylaxis: Plan: Patient be on heparin for DVT prevention Admission and Anticipated Discharge Date Admission Date: May 20, 2021 Debbi Dhaliwal is seen at the bedside this morning. She reports her leg and foot continue to be painful at the site of her sores/infection, denies any pain in her right stump. Denies fever/chills. Reports she would like to return home soon as possible, and is tearful at having to remain in the hospital for additional care. Discussed that her infection goes down to the bone, and concerned for her ability to care for herself at home especially in the setting of worsened weakness from systemic infection. Paulie must assess her arterial/vascular patency before pursuing additional interventions, and that both medical and surgical treatments require adequate blood flow to her extremity. Patient expresses an understanding of this and does not have ad ditional questions or concerns at time of visit. Review of Systems Review of Systems: Constitutional: Denies fever, chills Eyes: Denies vision change ENT: Denies ear pain, sore throat, sinus pain Cardiovascular: Denies Chest pain, chest pressure, palpitations, extremity swelling Respiratory: Denies shortness of breath, cough, sputum production, difficulty breathing Gastrointestinal: Denies abdominal pain, nausea, vomiting, constipation, diarrhea Genitourinary: Denies dysuria, urinary frequency Musculoskeletal: Versus pain as noted in HPI Integumentary: Endorses left foot/leg infection with infection of the toe, anterior leg. Neurological: Denies headache Physical Exam Physical Exam: General: A&Ox3. NAD. Cooperative. HEENT: Atraumatic, normocephalic. Pulm: CTAB A&P. -wheezes, -rales, -rhonchi. Symmetrical chest rise. No increase work of breathing. No respiratory distress. Cardiac: RRR, -mrg. Radial pulses intact and symmetrical. Abdominal: Nontender, nondistended, soft. BS present. Extremities: Status post right BKA, stump well-healed without signs of infection or ulceration. Left foot with lateral fifth MT ulcer, dorsal lateral 1 cm ulcer with surrounding erythema and mild purulence, 2 erythematous focuses of scaling on anterior valente. PT pulse unable to be appreciated,Cap refill greater than 2 seconds. Results & Data Results & Data ([facility]) Vital Signs (Past 12 Hours) Vital Signs Temp Pulse Resp BP Pulse Ox 05/21/21 11:23 36.9 C 55 L 20 145/47 H 96 05/21/21 08:00 36.6 C 57 L 16 148/62 H 94 PG Care Time/CCT Total # of Minutes Spent Total Time Spent with Patient: Total time spent is greater than 50% in coordination of care (as documented) at patient's floor/unit and/or counseling patient: Coding Level of Care Code 31467 Subseq Hosp Care Lvl 3 Diagnoses Encephalopathy G93.40 COPD exacerbation J44.1 KM (acute kidney injury) N17.9 Diabetes E11.9 PAD (peripheral artery disease) I73.9 DVT prophylaxis Z29.9 Foot osteomyelitis, left M86.9
[2021-05-21] MEDS ORDERED: VANCOMYCIN HCL 1,000 MG in SODIUM CHLORIDE 0.9% 250 ML IV SCH (17:00)
[2021-05-21] MEDS ORDERED: hydrALAZINE HCL 20 MG/ML VIAL ONE (17:45)
--- NOTE | 2021-05-21 18:02 | Post Anesthesia Assessment ---
Date of Service May 21, 2021 Post Sedation Assessment Vital Signs Temp Pulse Resp BP Pulse Ox 05/21/21 11:23 98.4 F 55 L 20 145/47 H 96 05/21/21 08:00 97.9 F 57 L 16 148/62 H 94 05/21/21 04:00 97.9 F 52 L 16 154/60 H 93 05/21/21 00:00 97.7 F 55 L 14 140/70 98 05/20/21 20:57 97.7 F 47 L 16 146/59 H 95 Recovery Score Activity: Moves 4 extremities Respiration: Deep Breath/Cough Circulation: +/-20% PreAnes Value Consciousness: Fully Awake Oxygen Saturation: O2 needed for >90% Discharge Sedation Level of Care: Fast Track Phase II Post Sedation Plan On clinical assessment, the patient appears to have tolerated the sedation without complications. Patient is recovering as anticipated. Patient will continue to be monitored by nursing and may be discharged when sedation discharge criteria are met per below protocol. Upon Completions of procedure up to 15 minutes continue every 5 minute vital signs and the P.A.R. score; then discharge to a Phase I or Fast Track to Phase II per the following guidelines: * Discharge Patient to appropriate Phase II area if PAR is 8 or greater or return to pre- procedure baseline. The post - procedure orders will be as directed. * If PAR score is less than 8 or not return to pre-procedure baseline then patient will follow Phase I monitoring till PAR is reached for Phase II. The Phase I may be done in procedure room or may call to secure a Phase I area. * If naloxone or flumazenil are used for reversal, hold in Phase I for continued monitoring from when last reversal dose was given for a minimum of 60 minutes or longer pending the nurse and/or physician discretion of patient condition before discharge to Phase II. Please call the Sedation Physician to re-evaluate and complete post-note for discharge to Phase II area. Do NOT discharge from procedure sedation or Phase 1 until post- sedation evaluation note is complete by procedure /sedation MD Sedation Discharge Instructions to be given to the patient at discharge to home.
--- NOTE | 2021-05-21 18:05 | Endovascular Procedure Note ---
PG Endovascular Procedure Rpt Pre & Post Diagnosis PAD I identified the patient and participated in the time-out.: Yes Procedure Operation Date: 05/21/21 15:00 Actual Procedures p Angio Extremity Unilateral - Jadiel Jha MD p Tibial Peroneal Balloon - Jadiel Jha MD s Femoral Popliteal Balloon - Jadiel Jha MD s Ultrasound Vascular Access - Jadiel Jha MD p Cath, Left with Cors and Vent - Jadiel Jha MD Surgeon Blanco Jha MD Charter Coordinator Cody Cabrera Estimated Blood Loss 20 Findings See Below Aorta: Distal aorta above bifurcation ectatic. Left lower extremity: Common iliac - Iliac stents widely patent External iliac -mild diffuse disease Internal iliac -patent, small vessel EXCEL DEVELOPER -mild diffuse disease Profunda -patent SFA -40% ostial, 50% mid disease (pullback gradient 20 mmHg). Popliteal-minimal disease TPT -widely patent AT -80% mid segment stenosis, late-mid 100% focal occlusion. Distal vessel fills via collaterals from peroneal. PT -widely patent to the foot Peroneal -widely patent to the ankle DPAwidely patent with branches to lateral foot. Medial/lateral plantar arteries - patent, taper prior to forefoot. Anesthesia Type RN Sedation Radiation Exposure (mGv) Radiation (mGy): 165 Contrast Contrast: 65 Complications none Disposition Accompanied Patient To Recovery: No Disposition: Surgical ICU Indications Critical limb ischemia Description of Procedure Left radial access obtained under ultrasound guidance with placement of 6Fr slender sheath Pigtail/MPA navigated over glide-advantage wire into infrarenal abdominal aorta and LT common iliac artery. Iliac stents, external iliac, EXCEL DEVELOPER shown to be widely patent. Left EXCEL DEVELOPER antegrade access obtained under ultrasound guidance, short 5Fr sheath placed Selective distal angiography with MPA placed into popliteal artery. EDITH mid stenosis, occlusion crossed with 0.14 command wire and quickcross cat heter. Distal intraluminal position confirmed via injection through catheter. Mid to distal EDITH dilated with 2.5 balloon. Following IA vasodilators brisk flow through EDITH to foot without evidence of flow-limiting dissection. Area of mid SFA with significant gradient then treated with 5.0 x 120 mm Lutonix CELSO SFA expended appropriately with minimal residual stenosis and no dissection. Final result - brisk 3 vessel runoff to the foot and flow to distal lateral foot ulcer bed via branches of DPA. Contrast used: 65 Moderate sedation: [id number] Access closure: Left CFAMynx, Left radial - TR band Summary: 1. Left lower extremity --Patent common to external iliac stents, 40% ostial SFA, 50% mid SFA stenosis (20+ mmHg pullback gradient), 80% mid EDITH stenosis followed by 100% focal occlusion. Distal EDITH fills via collaterals with sluggish flow in patent DPA. 2. Successful angioplasty of mid EDITH disease with 2.5 ballooon. 3. Successful angioplasty of mid SFA with 5.0 x 120 mm drug-eluting balloon (Lutonix). Recommendations: Continue long-term DAPT with aspirin/clopidogrel. Follow-up non-invasive vascular testing in 1-2 weeks. I attest to the content of the Intraoperative Record and any orders documented therein. Any exceptions are noted below. Vascular Charges Angiography/Venography Procedure 1: Angiography/Venography charges: [id number] Aortography, abd + b/l iliofem LE, catheter, radiological S&I Procedure 2: Angiography/Venography charges: [id number] Initial 3rd order or selective abd, pelvic, or LE branch Lower Extremity Interventions Procedure 1: Lower Extremity Intervention charges: [id number] Angioplasty, femoral, popliteal artery(s), unilateral Procedure 2: Lower Extremity Intervention charges: [id number] Angioplasty, tibial, peroneal artery, unilateral, initial vessel Additional Services Procedure 1: Additional Services Charges: 20315 Ultrasound guidance - vascular access Procedure 2: Additional Services Charges: 30377 Ultrasound guidance - vascular access Procedure 3: Additional Services Charges: 64472 Moderate sedation initial 15 min Procedure 4: Additional Services Charges: 39349 Moderate sedation, each additional 15 min
[2021-05-21] MEDS ORDERED: CLOPIDOGREL BISULFATE 300 MG TAB ONE (18:09)
[2021-05-21] MEDS: metroNIDAZOLE 500 MG/100 ML BAG IV SCH (18:18)
[2021-05-21] MEDS: CEFEPIME 2,000 MG in SYRINGE 0 ML IV SCH (18:18)
[2021-05-21] MEDS ORDERED: SODIUM CHLORIDE 0.9% 1000ML 1,000 ML IV SCH (18:45)
[2021-05-22] MEDS: metroNIDAZOLE 500 MG/100 ML BAG IV SCH ×2 (00:26→08:15)
[2021-05-22] MEDS: CEFEPIME 2,000 MG in SYRINGE 0 ML IV SCH ×2 (05:09→17:40)
[2021-05-22 06:00] LABS: Hematocrit (blood only) 33.1 % (37-47); Hemoglobin 10.5 g/dL (12.0-16.0); Mean Corpuscular Hemoglobin 28.8 pg (25-34); Mean Corpuscular Hgb Conc 31.7 g/dL (32-36); Mean Corpuscular Volume 90.9 fL (80-100); Platelet Count 361 K/uL (130-400); RDW Coefficient of Variation 17.9 % (11.5-14.5); RDW Standard Deviation 59.7 fL (36.4-46.3); Red Blood Count 3.64 M/uL (4.2-5.4); White Blood Count 8.05 K/uL (4.8-10.8)
[2021-05-22 06:30] LABS: BUN Creatinine Ratio 18.6 (10-20); Calcium 8.4 mg/dl (8.5-10.1); Est GFR (African American) 65.7 ml/min; Est GFR (Non-African American) 56.6 ml/min; Potassium 3.5 mmol/L (3.5-5.1)
--- NOTE | 2021-05-22 06:47 | Orthopedic Progress Note ---
Date of Service May 22, 2021 Assessment & Plan (1) Foot osteomyelitis, left: Madhuri has a very small stable ulceration on her left foot. It has not been healing. She had a revascularization procedure done by Dr. Jha yesterday. A CT scan showed a very small area of bone erosion at the fifth metatarsal head and was suggestive of possible osteomyelitis. Fortunately, I do not see any lab values that would suggest her encephalopathy is coming from an infection of her left foot. I am very hesitant to do a partial amputation of this foot. I do not think the wound would heal well and it might quickly lead to a below-knee amputation. If that is the case, given her amputation on the other side, I think this would cause significant morbidity. At this time, as long as her illnesses are not caused from the ulceration, I think the risk- benefit ratio would be in favor of treating this with antibiotics over amputations. I am just very concerned that any amputation site would heal. We will see how she does over the next few days. At this point I am not planning on any surgery. I just do not think the wounds would heal well. If you have any questions please feel free to contact me at [phone]. I will continue to follow. Subjective Madhuri was seen and examined at bedside this morning. She had a vascular procedure done yesterday on her left leg for revascularization of her left foot. Overall she is doing well. She has no change in the ulceration of her foot. No new complaints.. Review of Systems All systems reviewed & are unremarkable except as noted in HPI & below. Physical Exam On physical examination of the left foot, there is a small ulceration on the lateral aspect of the fifth MTP joint. It is unchanged. There is no cellulitis.. Results & Data Results & Data Laboratory Results . Diagnostic Findings . PG Care Time/CCT Total # of Minutes Spent Total Time Spent with Patient: Total time spent is greater than 50% in coordination of care (as documented) at patient's floor/unit and/or counseling patient: Coding Level of Care Code 27506 Subseq Hosp Care Lvl 2 Diagnoses Foot osteomyelitis, left M86.9
[2021-05-22] MEDS: FLUTICASONE/VILANTEROL 100/25MCG 14 PUFFS/INHALER INH SCH (08:11)
[2021-05-22] MEDS: CLOPIDOGREL BISULFATE 75 MG TAB PO SCH (08:12)
[2021-05-22] MEDS: AZITHROMYCIN 250 MG TAB PO SCH (08:12)
[2021-05-22] MEDS: ATORVASTATIN 40 MG TAB PO SCH (08:12)
[2021-05-22] MEDS: ASPIRIN 81 MG ECTAB PO SCH (08:12)
[2021-05-22] MEDS: PENTOXIFYLLINE 400MG EXT REL TAB PO SCH ×3 (08:13→21:24)
[2021-05-22] MEDS: HEPARIN SOD 5,000 UNIT/0.5 ML VIAL SQ SCH (08:13)
[2021-05-22] MEDS: guaiFENesin 600 MG TABCR PO SCH ×2 (08:13→21:25)
[2021-05-22] MEDS: INSULIN ASPART 100 UNITS/ML 3 ML PEN SC SCH ×4 (08:14→20:58)
--- NOTE | 2021-05-22 10:33 | Hospitalist Progress Note ---
Date of Service May 22, 2021 Assessment & Plan (1) Foot osteomyelitis, left: Plan: Madhuri is a 80-year-old female with a past medical history of peripheral artery disease, COPD, pulmonary nodule, renal insufficiency, right BKA, and chronic left foot ulcerations who presented with encephalopathy and to remains for treatment of a left lower extremity osteomyelitis. Left fifth osteomyelitis Vanco/Zosyn converted to Vanco/cefepime/Flagyl. Ortho consulted. Do not recommend surgery at this time due to concern for poor wound healing Vascular medicine consulted, EDITH/HERPETOLOGY TEACHER angioplasty performed looking at cefepime/vancomycin which should be daily due to her renal function, plus oral Flagyl Blood cultures pending, no growth to date History of MRSA - Per surgery prefer medical tx>surgical as pt is high risk for nonhealing. Anticipate 8 week course of abx IV. Due to renal function may be able to pursue daily cefepime/flagyl/vanco infusion on discharge (2) Encephalopathy: Plan: Acute mixed metabolic and respiratory encephalopathy Altered factorial including hypoxemia from chronic respiratory failure and metabolic in the setting of left foot cellulitis with chronic peripheral artery disease. Has had a past history of toxic encephalopathy which may also contribute. - Supplemental oxygen will be provided to exclude hypoxemia. COPD can be progressing to the point where she needs it. Continue COPD inhalers -Blood cultures 05/20 pending, no growth to date Urine culture no growth to date (3) COPD exacerbation: Plan: Continue Advair DuoNebs scheduled No acute exacerbation with steroids on evaluation today (4) KM (acute kidney injury): Plan: KM on CKD 2, some mild pulmonary edema on admitting chest x-ray Creatinine decreasing near baseline 1.28 05/21 Creatinine normalized 05/22 Baseline less than 1.2 (5) Diabetes: Plan: Oral glipizide held Basal bolus Adequate glycemic control [id number] this afternoon (6) PAD (peripheral artery disease): Plan: Continue aspirin, Plavix, pentoxifylline Continue atorvastatin Vascular medicine consulted for left lower extremity evaluation with poor heali ng ulcers. Ortho planning on partial amputation but would benefit from optimization of blood flow prior. Seen by Dr. Jha this morning, prior angiography reviewed. Angioplasty performed as noted above, even with successful revascularization prognosis is guarded due to small vessel and microvascular disease. (7) DVT prophylaxis: Plan: Patient on heparin for DVT prevention Admission and Anticipated Discharge Date Admission Date: May 20, 2021 Subjective Seen the bedside this morning. Continues to endorse foot pain, similar to prior. No new pain. No fever/chills/sweats overnight. Denies chest pain, chest pressure, difficulty breathing. Reports she is anxious to go home, discussed her angioplasty and her microvascular disease at baseline. Discussed surgical recommendations for medical therapy, and concern for postoperative healing. Patient expresses understanding of this, and while her ultimate goals are to return home is agreeable to placement on discharge while her infection is being treated. Review of Systems Review of Systems: Constitutional: Denies fever, chills Eyes: Denies vision change ENT: Denies ear pain, sore throat, sinus pain Cardiovascular: Denies Chest pain, chest pressure, palpitations, extremity swelling Respiratory: Denies shortness of breath, cough, sputum production, difficulty breathing Gastrointestinal: Denies abdominal pain, nausea, vomiting, constipation, diarrhea Genitourinary: Denies dysuria, urinary frequency Musculoskeletal: Left foot pain as noted in subjective Integumentary: Endorses left foot/leg infection with infection of the toe, anterior leg. Neurological: Denies headache Physical Exam Physical Exam: General: A&Ox3. NAD. Cooperative. HEENT: Atraumatic, normocephalic. Pulm: CTAB A&P. -wheezes, -rales, -rhonchi. Symmetrical chest rise. No increase work of breathing. No respiratory distress. Cardiac: RRR, -mrg. Radial pulses intact and symmetrical. Abdominal: Nontender, nondistended, soft. BS present. Extremities: Status post right BKA, stump well-healed without signs of infection or ulceration. Left foot with lateral fifth MT ulcer, dorsal lateral 1 cm ulcer with surrounding erythema and mild purulence, 2 erythematous focuses of scaling on anterior valente. Cap refill approximately 2 seconds. PT pulse intact, PT pulse not appreciated on palpation. Results & Data Results & Data ([facility]) Vital Signs (Past 12 Hours) Vital Signs Temp Pulse Pulse Resp BP Pulse Ox 05/22/21 08:00 71 05/22/21 07:51 36.6 C 70 18 154/77 H 93 05/22/21 04:00 36.6 C 67 16 152/64 H 95 05/22/21 00:09 36.6 C 67 20 126/59 L 93 PG Care Time/CCT Total # of Minutes Spent Total Time Spent with Patient: Total time spent is greater than 50% in coordination of care (as documented) at patient's floor/unit and/or counseling patient: Coding Level of Care Code 40033 Subseq Hosp Care Lvl 3 Diagnoses Foot osteomyelitis, left M86.9 Encephalopathy G93.40 COPD exacerbation J44.1 KM (acute kidney injury) N17.9 Diabetes E11.9 PAD (peripheral artery disease) I73.9 DVT prophylaxis Z29.9
[2021-05-22] MEDS: PANTOprazole 40 MG TAB PO SCH ×2 (10:34→21:28)
[2021-05-22] MEDS ORDERED: VANCOMYCIN TROUGH ONE (11:30)
[2021-05-22 11:39] LABS: Basophils # (auto) 0.01 K/uL (0-0.2); Basophils % (auto) 0.1 %; Eosinophils # (auto) 0.08 K/uL (0-0.5); Eosinophils % (auto) 0.9 %; Hematocrit (blood only) 31.9 % (37-47); Hemoglobin 10.2 g/dL (12.0-16.0); Immature Granulocytes # (auto) 0.02 K/uL (0.00-0.02); Immature Granulocytes % (auto) 0.2 %; Lymphocytes # (auto) 1.22 K/uL (1.2-3.4); Lymphocytes % (auto) 13.4 %; Mean Corpuscular Hemoglobin 28.3 pg (25-34); Mean Corpuscular Volume 88.6 fL (80-100); Mean Platelet Volume 9.8 fL (7.4-10.4); Monocytes # (auto) 0.71 K/uL (0.11-0.59); Monocytes % (auto) 7.8 %; Neutrophils # (auto) 7.07 K/uL (1.4-6.5); Neutrophils % (auto) 77.6 %; Platelet Count 314 K/uL (130-400); RDW Coefficient of Variation 17.9 % (11.5-14.5); RDW Standard Deviation 58.1 fL (36.4-46.3); White Blood Count 9.11 K/uL (4.8-10.8)
[2021-05-22] MEDS: VANCOMYCIN HCL 1,000 MG in SODIUM CHLORIDE 0.9% 250 ML IV SCH (13:43)
[2021-05-22] MEDS: metroNIDAZOLE 500 MG TAB PO SCH ×2 (13:49→21:27)
--- NOTE | 2021-05-22 15:06 | Pharmacy Report ---
Pharmacy Abx Dose Short Note - Date of Service May 22, 2021 - Assessment & Plan Assessment * 80 year old F receiving cefepime IV, metronidazole po, and vancomycin IV for treatment of osteomyelitis. No surgical intervention planned. Discharge on IV antibiotics anticipated. q24h interval therefore best for vancomycin, if it can be safely achieved * Trough level of 12.2 mcg/mL is considered subtherapeutic via the traditional trough-based monitoring. However, superior model of AUC-based monitoring indicates that this is likely represents a therapeutic AUC. However, as renal function has been improving/rapidly changing will re-check level tomorrow to ensure it is not falling Plan * Continue vancomycin 1000 mg IV q24h * Repeat trough tomorrow at 1130 (to ensure AUC remains therapeutic despite changing renal function) Pharmacy will continue to follow and will adjust dose/frequency as necessary. Thank you.
[2021-05-23] MEDS: CEFEPIME 2,000 MG in SYRINGE 0 ML IV SCH ×2 (05:45→17:49)
[2021-05-23 05:53] LABS: Hemoglobin 10.1 g/dL (12.0-16.0); Mean Corpuscular Hemoglobin 28.3 pg (25-34); Mean Corpuscular Hgb Conc 31.6 g/dL (32-36); Mean Corpuscular Volume 89.6 fL (80-100); Mean Platelet Volume 10.2 fL (7.4-10.4); Platelet Count 321 K/uL (130-400); RDW Coefficient of Variation 17.7 % (11.5-14.5); RDW Standard Deviation 57.6 fL (36.4-46.3); Red Blood Count 3.57 M/uL (4.2-5.4); White Blood Count 8.07 K/uL (4.8-10.8)
--- NOTE | 2021-05-23 06:29 | Orthopedic Progress Note ---
Date of Service May 23, 2021 Assessment & Plan (1) Foot osteomyelitis, left: She has a very small area of osteomyelitis in the head of the fifth metatarsal. She has very poor blood flow to her lower extremity. Debriding or doing partial amputations on ischemic foot can often lead to poor wound healing and could possibly lead to a below-knee amputation. She already has a below- knee amputation on her other side so this would cause significant morbidity if this were to happen. For these reasons I am recommending treatment with IV antibiotics. Hopefully we can suppress the infection. She is orthopedically stable for discharge when medically ready. There is no need to follow-up with orthopedics unless her foot wound significantly worsens. If you have any further questions please feel free to contact me personally at [phone]. Debbi Dhaliwal was seen and examined at bedside this morning. The status of her foot is essentially unchanged. She still is a small ulceration. She has no new complaints.. Review of Systems All systems reviewed & are unremarkable except as noted in HPI & below. Physical Exam Physical examination of the left foot, there is a small 1 cm ulceration over the lateral aspect of the fifth MTP joint. There is little to no erythema. The status is essentially unchanged.. Results & Data Results & Data Laboratory Results . Diagnostic Findings . PG Care Time/CCT Total # of Minutes Spent Total Time Spent with Patient: Total time spent is greater than 50% in coordination of care (as documented) at patient's floor/unit and/or counseling patient: Coding Level of Care Code 89150 Subseq Hosp Care Lvl 2 Diagnoses Foot osteomyelitis, left M86.9
[2021-05-23 06:33] LABS: BUN Creatinine Ratio 13.5 (10-20); C Reactive Protein 1.34 mg/dl (0-0.29); Creatinine Clr Calc Pharmacy 49.2 ml/min; Est GFR (African American) 84.4 ml/min; Est GFR (Non-African American) 72.8 ml/min
[2021-05-23] MEDS: metroNIDAZOLE 500 MG TAB PO SCH ×3 (06:43→21:31)
[2021-05-23] MEDS ORDERED: HYDROmorphone INJ 0.5 MG/0.5 ML SYR IV PRN (07:44)
[2021-05-23] MEDS ORDERED: LORazepam 1 MG/2 ML VIAL IV PRN (07:46)
[2021-05-23] MEDS: INSULIN ASPART 100 UNITS/ML 3 ML PEN SC SCH ×4 (08:26→20:51)
[2021-05-23] MEDS: CLOPIDOGREL BISULFATE 75 MG TAB PO SCH (10:22)
[2021-05-23] MEDS: ATORVASTATIN 40 MG TAB PO SCH (10:22)
[2021-05-23] MEDS: ASPIRIN 81 MG ECTAB PO SCH (10:22)
[2021-05-23] MEDS: AZITHROMYCIN 250 MG TAB PO SCH (10:22)
[2021-05-23] MEDS: PANTOprazole 40 MG TAB PO SCH ×2 (10:23→23:45)
[2021-05-23] MEDS: guaiFENesin 600 MG TABCR PO SCH ×2 (10:23→23:45)
[2021-05-23] MEDS: PENTOXIFYLLINE 400MG EXT REL TAB PO SCH ×3 (10:23→21:29)
[2021-05-23] MEDS: FLUTICASONE/VILANTEROL 100/25MCG 14 PUFFS/INHALER INH SCH (10:23)
--- NOTE | 2021-05-23 12:07 | Vascular Medicine ProgressNote ---
Date of Service May 23, 2021 Assessment & Plan (1) PAD (peripheral artery disease): Plan: 2. Altered mental status 3. Osteomyelitis/left lower extremity cellulitis/nonhealing left lower extremity ulcerations 4. Suspected chronic venous insufficiency 5. Type 2 diabetes 6. Left carotid artery, subclavian artery disease 7. Resolved KM 8. Anemia Improved, 2+ DP pulse on exam post intervention. No apparent access site complications. At this point feel distal perfusion is as optimized as possible post repeated left lower extremity arterial interventions. Continue DAPT with aspirin, clopidogrel. Follow-up noninvasive vascular testing as an outpatient. Admission and Anticipated Discharge Date Admission Date: May 20, 2021 Subjective Patient sitting up in chair. States she has not slept since she had her procedure. Reports that she worked with PT today. Denies any pain. Review of Systems Review of Systems: 10 point review of systems was completed and was otherwise negative unless stated in HPI Physical Exam Physical Exam: General: Comfortable, no acute distress. Lungs: Clear to auscultation Cardiac: Regular rate and rhythm. Abdomen: Soft Extremities/Vascular: --LT [employer] ecchymosis, no hematoma, pulse intact --Left lower extremity with scaling over anterior valente with erythema extending into foot --Left lateral foot wound <1cm, no drainage --< 1 cm open area over dorsal aspect of foot with mild surrounding erythema --2+ DP pulse. No PT pulse. Normal capillary refill in fourth/fifth digits Results & Data ([facility]) Vital Signs (Past 12 Hours) Vital Signs Temp Pulse Resp BP Pulse Ox 05/23/21 06:00 68 21 96 05/23/21 04:00 97.5 F L 69 20 197/93 H 97 05/23/21 01:00 70 18 94 PG Care Time/CCT Total # of Minutes Spent Total Time Spent with Patient: Total time spent is greater than 50% in coordination of care (as documented) at patient's floor/unit and/or counseling patient: Coding Level of Care Code 29843 Subseq Hosp Care Lvl 3 Diagnoses PAD (peripheral artery disease) I73.9
[2021-05-23] MEDS: VANCOMYCIN HCL 1,000 MG in SODIUM CHLORIDE 0.9% 250 ML IV SCH (12:48)
--- NOTE | 2021-05-23 12:56 | Pharmacy Report ---
Pharmacy Abx Dose Short Note - Date of Service May 23, 2021 - Assessment & Plan Assessment * 80 year old F receiving cefepime IV, metronidazole po, and vancomycin IV for treatment of osteomyelitis. No surgical intervention planned. Discharge on IV antibiotics anticipated. q24h interval therefore best for vancomycin, if it can be safely achieved * Trough level with slight decrease from yesterday to today (12.2 to 11.9 mcg/mL). A trough of 11.9 mcg/mL is considered subtherapeutic via the traditional trough-based monitoring. Furthermore, superior model of AUC-based monitoring also indicates that the trend down (despite not being at steady state) is not likely to maintain a therapeutic AUC * Will therefore increase dose to 1250 mg IV q24h. Anticipated AUC is 473 mcg/mL*hr (goal range 400-600 mcg/mL*hr) with associated steady state trough of 12.9 mcg/mL. Low anticipated risk of toxicity with this regimen. * Repeat trough prior to 3rd dose of new regimen Plan * Increase vancomycin 1250 mg IV daily@0900 * Trough 05/26 @ 0830 Pharmacy will continue to follow and will adjust dose/frequency as necessary. Thank you.
[2021-05-23] MEDS: POTASSIUM CHLORIDE / WTR 10 MEQ/100 ML PLCT IV SCH ×3 (15:31→17:49)
--- NOTE | 2021-05-23 17:17 | Hospitalist Progress Note ---
Date of Service May 23, 2021 Assessment & Plan (1) Foot osteomyelitis, left: Plan: Madhuri is a 80-year-old female with a past medical history of peripheral artery disease, COPD, pulmonary nodule, renal insufficiency, right BKA, and chronic left foot ulcerations who presented with encephalopathy and to remains for treatment of a left lower extremity osteomyelitis. Left fifth osteomyelitis Vanco/Zosyn converted to Vanco/cefepime/Flagyl. Ortho consulted. Do not recommend surgery at this time due to concern for poor wound healing Vascular medicine consulted, EDITH/THERAPIST PHYSICAL angioplasty performed. Blood cultures pending, no growth to date History of MRSA - Per surgery prefer medical tx>surgical as pt is high risk for nonhealing. Anticipate 8 week course of abx IV. Daily cefepime/flagyl/vanco infusion reasonable based on kidney function, will pursue at discharge Patient medically improved and clinically stable. Pending placement, anticipate [facility]? Friday (2) Encephalopathy: Plan: Acute mixed metabolic and respiratory encephalopathy Altered factorial including hypoxemia from chronic respiratory failure and metabolic in the setting of left foot cellulitis with chronic peripheral artery disease. Has had a past history of toxic encephalopathy which may also contribute. - Supplemental oxygen will be provided to exclude hypoxemia. COPD can be progressing to the point where she needs it. Continue COPD inhalers -Blood cultures 05/20 pending, no growth to date Urine culture no growth to date (3) COPD exacerbation: Plan: Continue Advair DuoNebs scheduled No acute exacerbation with steroids on evaluation today (4) KM (acute kidney injury): Plan: KM on CKD 2, some mild pulmonary edema on admitting chest x-ray Creatinine decreasing near baseline 1.28 05/21 Creatinine normalized 05/22 Baseline less than 1.2 (5) Diabetes: Plan: Oral glipizide held Basal bolus Adequate glycemic control this afternoon (6) PAD (peripheral artery disease): Plan: Continue aspirin, Plavix, pentoxifylline Continue atorvastatin Vascular medicine consulted for left lower extremity evaluation with poor healing ulcers. Status post angioplasty with improved perfusion of lower extremity but severe small vessel disease. Continue DAPT. (7) DVT prophylaxis: Plan: Continue heparin for DVT prevention Admission and Anticipated Discharge Date Admission Date: May 20, 2021 Subjective Patient seen at bedside this morning. She is in good spirits, pleasant, no acute concerns. Reports no pain, is excited to move forward the plan to get her leg improved and potentially get stronger. Reports she has had a good experience at [facility] in the past and is aware that she is awaiting placement, hopefully [facility] on Friday. No additional questions or concerns at time of bedside assessment. Review of Systems Review of Systems: Constitutional: Denies fever, chills Eyes: Denies vision change ENT: Denies ear pain, sore throat, sinus pain Cardiovascular: Denies Chest pain, chest pressure, palpitations, extremity swelling Respiratory: Denies shortness of breath, cough, sputum production, difficulty breathing Gastrointestinal: Denies abdominal pain, nausea, vomiting, constipation, diarrhea Genitourinary: Denies dysuria, urinary frequency Musculoskeletal: Left foot pain as noted in subjective Integumentary: Endorses left foot/leg infection with infection of the toe, anterior leg. Neurological: Denies headache Physical Exam Physical Exam: General: A&Ox3. NAD. Cooperative. HEENT: Atraumatic, normocephalic. Pulm: CTAB A&P. -wheezes, -rales, -rhonchi. Symmetrical chest rise. No increase work of breathing. No respiratory distress. Cardiac: RRR, -mrg. Radial pulses intact and symmetrical. Abdominal: Nontender, nondistended, soft. BS present. Extremities: Status post right BKA, stump well-healed without signs of infection or ulceration. Left foot with lateral fifth MT ulcer, dorsal lateral 1 cm ulcer with surrounding erythema and mild purulence, 2 erythematous focuses of scaling on anterior valente. Cap refill approximately 2 seconds. PT pulse intact, PT pulse previously not appreciated on palpation. Results & Data Results & Data ([facility]) Vital Signs (Past 12 Hours) Vital Signs Temp Pulse Pulse Pulse Resp BP Pulse Ox 05/23/21 15:11 36.4 C L 65 18 156/64 H 97 05/23/21 14:46 69 05/23/21 12:00 36.6 C 68 19 148/75 H 99 05/23/21 08:00 65 05/23/21 07:00 36.6 C 69 16 168/80 H 96 05/23/21 06:00 68 21 96 PG Care Time/CCT Total # of Minutes Spent Total Time Spent with Patient: Total time spent is greater than 50% in coordination of care (as documented) at patient's floor/unit and/or counseling patient: Coding Level of Care Code 38308 Subseq Hosp Care Lvl 2 Diagnoses Foot osteomyelitis, left M86.9 Encephalopathy G93.40 COPD exacerbation J44.1 KM (acute kidney injury) N17.9 Diabetes E11.9 PAD (peripheral artery disease) I73.9 DVT prophylaxis Z29.9
[2021-05-23] MEDS: ACETAMINOPHEN 325 MG TAB PO PRN (23:51)
[2021-05-24 05:55] LABS: Hematocrit (blood only) 30.2 % (37-47); Hemoglobin 9.8 g/dL (12.0-16.0); Mean Corpuscular Hemoglobin 28.5 pg (25-34); Mean Corpuscular Hgb Conc 32.5 g/dL (32-36); Mean Corpuscular Volume 87.8 fL (80-100); Mean Platelet Volume 9.9 fL (7.4-10.4); Platelet Count 315 K/uL (130-400); RDW Coefficient of Variation 17.3 % (11.5-14.5); RDW Standard Deviation 56.3 fL (36.4-46.3); Red Blood Count 3.44 M/uL (4.2-5.4); White Blood Count 8.75 K/uL (4.8-10.8)
[2021-05-24 06:23] LABS: BUN Creatinine Ratio 12.9 (10-20); Calcium 8.8 mg/dl (8.5-10.1); Est GFR (African American) 85.1 ml/min; Est GFR (Non-African American) 73.4 ml/min; Potassium 3.5 mmol/L (3.5-5.1)
[2021-05-24] MEDS: metroNIDAZOLE 500 MG TAB PO SCH ×3 (06:35→20:50)
[2021-05-24] MEDS: CEFEPIME 2,000 MG in SYRINGE 0 ML IV SCH ×2 (06:35→16:44)
[2021-05-24] MEDS: PANTOprazole 40 MG TAB PO SCH ×2 (07:54→20:49)
[2021-05-24] MEDS: POTASSIUM CHLORIDE CRTAB 20 MEQ TABCR PO SCH (07:54)
[2021-05-24] MEDS: guaiFENesin 600 MG TABCR PO SCH ×2 (07:55→20:49)
[2021-05-24] MEDS: FLUTICASONE/VILANTEROL 100/25MCG 14 PUFFS/INHALER INH SCH (07:55)
[2021-05-24] MEDS: VANCOMYCIN HCL 1,250 MG in SODIUM CHLORIDE 0.9% 250 ML IV SCH (07:55)
[2021-05-24] MEDS: INSULIN ASPART 100 UNITS/ML 3 ML PEN SC SCH ×4 (08:02→21:11)
[2021-05-24] MEDS: ACETAMINOPHEN 325 MG TAB PO PRN ×2 (08:05→18:41)
[2021-05-24] MEDS: ATORVASTATIN 40 MG TAB PO SCH (12:33)
[2021-05-24] MEDS: CLOPIDOGREL BISULFATE 75 MG TAB PO SCH (12:33)
[2021-05-24] MEDS: ASPIRIN 81 MG ECTAB PO SCH (12:33)
[2021-05-24] MEDS: AZITHROMYCIN 250 MG TAB PO SCH (12:33)
[2021-05-24] MEDS: PENTOXIFYLLINE 400MG EXT REL TAB PO SCH ×3 (12:34→20:52)
--- NOTE | 2021-05-24 16:57 | Hospitalist Progress Note ---
Date of Service May 24, 2021 Assessment & Plan (1) Foot osteomyelitis, left: Plan: Madhuri is a 80-year-old female with a past medical history of peripheral artery disease, COPD, pulmonary nodule, renal insufficiency, right BKA, and chronic left foot ulcerations who presented with encephalopathy and to remains for treatment of a left lower extremity osteomyelitis. Left fifth osteomyelitis Vanco/Zosyn converted to Vanco/cefepime/Flagyl. Ortho consulted. Do not recommend surgery at this time due to concern for poor wound healing Vascular medicine consulted, EDITH/[employer] angioplasty performed. Blood cultures pending, no growth to date History of MRSA - Per surgery prefer medical tx>surgical as pt is high risk for nonhealing. Anticipate 8 week course of abx IV. Daily cefepime/flagyl/vanco infusion reasonable based on kidney function, will pursue at discharge Patient medically improved and clinically stable. Pending placement, anticipate [facility]? Friday (2) Encephalopathy: Plan: Acute mixed metabolic and respiratory encephalopathy Altered factorial including hypoxemia from chronic respiratory failure and metabolic in the setting of left foot cellulitis with chronic peripheral artery disease. Has had a past history of toxic encephalopathy which may also contribute. - Supplemental oxygen will be provided to exclude hypoxemia. COPD can be progressing to the point where she needs it. Continue COPD inhalers -Blood cultures 05/20 pending, no growth to date Urine culture no growth to date (3) COPD exacerbation: Plan: Continue Advair DuoNebs scheduled No acute exacerbation with steroids on evaluation today (4) KM (acute kidney injury): Plan: KM on CKD 2, some mild pulmonary edema on admitting chest x-ray Creatinine decreasing near baseline 1.28 05/21 Creatinine normalized 05/22 Baseline less than 1.2 (5) Diabetes: Plan: Oral glipizide held Basal bolus Adequate glycemic control this afternoon (6) PAD (peripheral artery disease): Plan: Continue aspirin, Plavix, pentoxifylline Continue atorvastatin Vascular medicine consulted for left lower extremity evaluation with poor healing ulcers. Status post angioplasty with improved perfusion of lower extremity but severe small vessel disease. Continue DAPT. (7) DVT prophylaxis: Plan: Continue heparin for DVT prevention Admission and Anticipated Discharge Date Admission Date: May 20, 2021 Subjective The patient is seen at bedside. She is awake, eating breakfast, in no acute distress. Excited to move forward with her plan, hopeful to go to [facility] tomorrow. Denies pain this morning. No fever, chills, sweats, pain in her foot at rest, shortness of breath, difficulty breathing. No questions or concerns at bedside. Review of Systems Review of Systems: Constitutional: Denies fever, chills Eyes: Denies vision change ENT: Denies ear pain, sore throat, sinus pain Cardiovascular: Denies Chest pain, chest pressure, palpitations, extremity swelling Respiratory: Denies shortness of breath, cough, sputum production, difficulty breathing Gastrointestinal: Denies abdominal pain, nausea, vomiting, constipation, diarrhea Genitourinary: Denies dysuria, urinary frequency Musculoskeletal: Left foot pain as noted in subjective Integumentary: Endorses left foot/leg infection with infection of the toe, anterior leg. Neurological: Denies headache Physical Exam Physical Exam: General: A&Ox3. NAD. Cooperative. HEENT: Atraumatic, normocephalic. Pulm: CTAB A&P. -wheezes, -rales, -rhonchi. Symmetrical chest rise. No increase work of breathing. No respiratory distress. Cardiac: RRR, -mrg. Radial pulses intact and symmetrical. Abdominal: Nontender, nondistended, soft. BS present. Extremities: Status post right BKA, stump well-healed without signs of infection or ulceration. Left foot with lateral fifth MT ulcer, dorsal lateral 1 cm ulcer with surrounding erythema, 2 erythematous focuses of scaling on anterior valente. Overall leveler appearing, less erythema, improved appearance from prior. Cap refill approximately 2 seconds. PT pulse intact Results & Data Results & Data ([facility]) Vital Signs (Past 12 Hours) Vital Signs Temp Pulse Pulse Resp BP Pulse Ox 05/24/21 15:43 36.4 C L 93 H 18 159/64 H 93 05/24/21 14:20 74 05/24/21 11:22 36.5 C 64 18 180/70 H 95 05/24/21 07:44 36.5 C 68 18 170/64 H 97 05/24/21 06:15 66 PG Care Time/CCT Total # of Minutes Spent Total Time Spent with Patient: Total time spent is greater than 50% in coordination of care (as documented) at patient's floor/unit and/or counseling patient: Coding Level of Care Code 01071 Subseq Hosp Care Lvl 1 Diagnoses Foot osteomyelitis, left M86.9 Encephalopathy G93.40 COPD exacerbation J44.1 KM (acute kidney injury) N17.9 Diabetes E11.9 PAD (peripheral artery disease) I73.9 DVT prophylaxis Z29.9
[2021-05-24] MEDS: HEPARIN SOD 5,000 UNIT/0.5 ML VIAL SQ SCH (20:47)
[2021-05-25] MEDS: ACETAMINOPHEN 325 MG TAB PO PRN (02:58)
[2021-05-25] MEDS: CEFEPIME 2,000 MG in SYRINGE 0 ML IV SCH (05:48)
[2021-05-25] MEDS: metroNIDAZOLE 500 MG TAB PO SCH ×2 (05:50→13:26)
[2021-05-25] MEDS: ASPIRIN 81 MG ECTAB PO SCH (09:50)
[2021-05-25] MEDS: guaiFENesin 600 MG TABCR PO SCH (09:50)
[2021-05-25] MEDS: ATORVASTATIN 40 MG TAB PO SCH (09:50)
[2021-05-25] MEDS: CLOPIDOGREL BISULFATE 75 MG TAB PO SCH (09:50)
[2021-05-25] MEDS: FLUTICASONE/VILANTEROL 100/25MCG 14 PUFFS/INHALER INH SCH (09:51)
[2021-05-25] MEDS: HEPARIN SOD 5,000 UNIT/0.5 ML VIAL SQ SCH (09:51)
[2021-05-25] MEDS: PANTOprazole 40 MG TAB PO SCH (09:51)
[2021-05-25] MEDS: POTASSIUM CHLORIDE CRTAB 20 MEQ TABCR PO SCH (09:51)
[2021-05-25] MEDS: PENTOXIFYLLINE 400MG EXT REL TAB PO SCH ×2 (09:51→13:01)
[2021-05-25] MEDS: INSULIN ASPART 100 UNITS/ML 3 ML PEN SC SCH ×2 (09:53→13:00)
[2021-05-25] MEDS: VANCOMYCIN HCL 1,250 MG in SODIUM CHLORIDE 0.9% 250 ML IV SCH (09:57)
--- NOTE | 2021-05-25 16:06 | Discharge Summary ---
Date of Service May 25, 2021 Admission Exam Per Admitting Provider The patient appeared chornically ill Vital signs as documented. Head exam is normocephalic atraumatic Neck is without JVD, thyromegaly, or carotid bruits. Lungs coarse rhonchi in left lung, right only scant, exp wheezes Cardiac exam, Rhythm is regular.. systolic murmur, no rubs or gallops. Abdominal exam reveals normal bowel sounds, soft non tender, no masses Extremitie R bka, left leg with arterial insufficiency changes to skin, healed ulcer left 5th MT, pt states is increasingly painful of late poor pulses despite previouls peripheral intervention Neurologic exam is alert and oriented x 3 Skin is with changes to left foot. [place] tissue reddened flaking skin Psychologically is without concerns for anxiety or depression Principal Diagnosis Osteomyelitis, left foot Discharge Exam General: A&Ox3. NAD. Cooperative. HEENT: Atraumatic, normocephalic. Pulm: CTAB A&P. -wheezes, -rales, -rhonchi. Symmetrical chest rise. No increase work of breathing. No respiratory distress. Cardiac: RRR, -mrg. Radial pulses intact and symmetrical. Abdominal: Nontender, nondistended, soft. BS present. Extremities: Status post right BKA, stump well-healed without signs of infection or ulceration. Left foot with lateral fifth MT ulcer, dorsal lateral 1 cm ulcer with surrounding erythema, 2 erythematous focuses of scaling on anterior valente. Cap refill approximately 2 seconds. PT pulse intact Discharge Data Allergies Allergy/AdvReac Type Severity Reaction Status Date / Time hydrogen peroxide Allergy Unknown ALLERGY Verified 05/20/21 07:48 REPORTED "PEROXIDE"-red and itchy lorazepam [From Ativan] AdvReac Mild flushed BP Verified 05/20/21 07:48 elevated , COMPLAINTS OF SKIN BURNING Consultations 05/20/21 06:56 ED Decision to Admit Stat 05/20/21 16:24 Consult Orthopedic Surgery Routine 05/21/21 07:38 Consult Cardiology Routine Procedures Performed Operation Date: 05/21/21 15:00 Actual Procedures p Angio Extremity Unilateral - Jadiel Jha MD p Tibial Peroneal Balloon - Jadiel Jha MD s Femoral Popliteal Balloon - Jadiel Jha MD s Ultrasound Vascular Access - Jadiel Jha MD p Cath, Left with Cors and Vent - Jadiel Jha MD Ordered Studies 05/20/21 03:28 CT cervical spine wo con Urgent CT head/brain wo con Urgent 05/20/21 03:46 CT abd pelvis wo con Urgent CT facial bones wo con Urgent 05/20/21 10:17 CT foot LT wo con Routine 05/21/21 10:00 US ankle/brachial index ltd Routine 05/21/21 14:03 CL Cath Imgs for PACS use only Stat Hospital Course (1) Foot osteomyelitis, left: Madhuri is a 80-year-old female with a past medical history of peripheral artery disease, COPD, pulmonary nodule, renal insufficiency, right BKA, and chronic left foot ulcerations who presented with encephalopathy and to remains for treatment of a left lower extremity osteomyelitis. To do as outpatient: 1. Complete 6-8 weeks of antibiotic therapy with cefepime/Vanco daily and Flagyl p.o. 3 times daily for osteomyelitis not amenable to surgical intervention 2. At least weekly CBC/BMP while on antibiotics 3. Vancomycin trough levels, twice a week initially may decrease to once weekly if levels and kidney function remain stable Left fifth osteomyelitis Vanco/Zosyn converted to Vanco/cefepime/Flagyl. Ortho consulted. Do not recommend surgery at this time due to concern for poor wound healing Vascular medicine consulted, EDITH/CD TECHNICIAN angioplasty performed. Blood cultures pending, no growth to date History of MRSA - Per surgery prefer medical tx>surgical as pt is high risk for nonhealing. Anticipate 8 week course of abx IV. Daily cefepime/flagyl/vanco infusion reasonable based on kidney function Continue cefepime grams IV daily Continue vancomycin 1250 mg daily, at least twice weekly trough levels and dose adjustment as needed Continue Flagyl 500 mg p.o. 3 times daily Total antibiotic course at least 6-8 weeks Follow-up with vascular as needed (2) Encephalopathy: Acute mixed metabolic and respiratory encephalopathy Altered factorial including hypoxemia from chronic respiratory failure and metabolic in the setting of left foot cellulitis with chronic peripheral artery disease. Has had a past history of toxic encephalopathy which may also contribute. - Supplemental oxygen will be provided to exclude hypoxemia. COPD can be progressing to the point where she needs it. Continue COPD inhalers -Blood cultures 05/20 pending, no growth to date Urine culture no growth to date Resolved at time of discharge (3) COPD exacerbation: Continue Advair DuoNebs scheduled No acute exacerbation with steroids on evaluation today (4) KM (acute kidney injury): KM on CKD 2, some mild pulmonary edema on admitting chest x-ray Creatinine decreasing near baseline 1.28 10 Creatinine normalized 05/22 Baseline less than 1.2 (5) Diabetes: Oral glipizide held Basal bolus Adequate glycemic control this afternoon (6) PAD (peripheral artery disease): Continue aspirin, Plavix, pentoxifylline Continue atorvastatin Vascular medicine consulted for left lower extremity evaluation with poor healing ulcers. Status post angioplasty with improved perfusion of lower extremity but severe small vessel disease. Continue DAPT. (7) DVT prophylaxis: Continue heparin for DVT prevention Total Time Total Time Spent Total Time Spent (In Minutes): Total time spent day of discharge 35 minutes including coordination of care, review of images, direct care, and documentation. Discharge Plan Discharge Items Patient Disposition: Transfer Nursing Home Fac Reason For Visit: ENCEPHALOPATHY,KM,PAD Discharge Diagnosis: Left foot osteomyelitis Left foot peripheral arterial disease Activity: Per Instructions section Non-emergency contact: Primary Care Provider Call non-emergency contact if: you have any medication questions, your symptoms worsen, your pain is not controlled and your pain is worsening Follow-up/Referrals: Jadiel Jha MD [Physician] - Og Baca MD [Primary Care Provider] - Diet: Heart Healthy Addtl Attending Provider Instructions: You are seen in the hospital for a left foot infection and were found to have a severe foot infection involving the bone called osteomyelitis. Due to chronic peripheral vascular disease, you have very poor blood flow. You were evaluated by surgery who felt that you were very high risk for poor healing due to the poor blood flow, and that attempted surgical revision could lead to poor healing and potential amputation. Was recommended that you pursue medical therapy. Vascular was consulted and performed angioplasty (a procedure to open up the arteries of your foot) with successful improvement in blood flow. While your blood flow improved and your posterior tibial pulse improved following this procedure, the surgical team still felt that you are high risk for surgery and that medical therapy should be pursued. You have been placed on 3 antibiotics, vancomycin, cefepime, and Flagyl for your foot infection and have had gradual clinical improvement. [facility] and antibiotic treatment. Please follow-up with your primary care provider and with the vascular interventional list as noted below. You have been prescribed an antibiotic, vancomycin. Please take vancomycin 1250 mg daily via IV infusion.You will need to have the levels of this antibiotic checked periodically as an outpatient. Please have vancomycin trough levels drawn by your primary care physician or [facility] twice weekly, if your levels remained stable this may be able to be done once weekly. You have been prescribed an antibiotic, cefepime. Please take cefepime 2 g once daily by IV infusion. You have been prescribed an antibiotic, metronidazole (Flagyl). Please take Flagyl 500 mg by mouth 3 times daily. You should have regular follow-up blood work to check your kidney function and white blood cell counts while on the antibiotics above. Please have at least a weekly CBC/BMP performed by either your primary care provider or [facility]. A follow-up appointment is being made for you with Dr. Jha, the grinder set up operator jig who performed the angioplasty of your leg. You should be seen within 1 month. If you do not receive a call to confirm this appointment please call his office directly at the number above. A follow-up appointment is being made for you with your primary care provider. You should be seen within 1 month. If you do not receive a call to confirm an appointment, please call Dr. Baca at [phone] If you develop any new or worsening symptoms including fever, chills, sweats, chest pain, chest pressure, difficulty breathing, uncontrolled nausea/vomiting, rash, wheezing, passing out or nearly passing out, bleeding, black/bloody bowel movements, or other new or concerning symptoms please call your primary care physician at [phone], or call 911 for re-evaluation in the emergency department if you are very concerned. Pending Studies at Discharge: Yes (followup CBC/BMP and vanco troughs as noted) Stand-Alone Forms: My [facility] Skilled Items Patient informed of condition?: Yes DNR: No Discharge Level of Care: Skilled Communicable Disease: No Discharge Prognosis: Stable Lines: None Urinary Catheter: No Medications and DC Order Prescriptions: New metronidazole 500 mg Tablet 500 mg PO Q8H 42 Days Qty: 126 RF: 0 cefepime 2 gram recon soln 2 g IV DAILY 42 Days Qty: 42 RF: 0 vancomycin in 0.9 % sodium chl 1.25 gram/250 mL solution 1.25 g IV DAILY 42 Days Qty: 60913 RF: 0 Continued clopidogrel 75 mg tablet 75 mg PO DAILY Qty: 30 RF: 3 pentoxifylline 400 mg tablet extended release 400 mg PO TID RF: 0 tramadol 100 mg tablet 100 mg PO TID PRN (Reason: Pain) RF: 0 amlodipine [Norvasc] 5 mg Tablet 2.5 mg PO QAM 30 Days Qty: 15 RF: 0 furosemide 40 mg tablet 40 mg PO BID RF: 0 oxybutynin chloride 5 mg tablet 5 mg PO BID RF: 0 venlafaxine 75 mg capsule,extended release 24hr 75 mg PO DAILY RF: 0 fluticasone propion-salmeterol [Advair Diskus] 250-50 mcg/dose blister with device 2 inh INHALATION DAILY RF: 0 atorvastatin 40 mg Tablet 40 mg PO QAM Qty: 30 RF: 0 aspirin [Aspirin Low Dose] 81 mg tablet,delayed release (DR/EC) 81 mg PO DAILY Qty: 30 RF: 0 meloxicam [Mobic] 15 mg tablet 15 mg PO DAILY RF: 0 Discontinued gabapentin 300 mg capsule 300 mg PO UD RF: 0 Discharge Orders: Discharge Order (Routine); Ordered 05/25/21 Ordered By: Bossman Franco/Other Patient Handouts: High Blood Sugar (Hyperglycemia), Hypoglycemia (Low Blood Sugar), Managing Type 2 Diabetes Admission Data Admit Date/Time: 05/20/21 08:16 Attending Provider: Bossman Alexander Admit Provider: Adam Jordan Primary Care Provider: Og Baca Other Providers: [place],[facility] ; Adam Jordan ; Ulises Escobedo ; Jadile Jha Other Interventions: Discharge Summary Assessment (RN) Last Done: 05/25/21 10:27 Coding Level of Care Code D/C DAY MANAGEMENT >30 MINS Diagnoses Foot osteomyelitis, left M86.9 Encephalopathy G93.40 COPD exacerbation J44.1 KM (acute kidney injury) N17.9 Diabetes E11.9 PAD (peripheral artery disease) I73.9 DVT prophylaxis Z29.9
[2021-05-26] MEDS ORDERED: CEFEPIME 2,000 MG in SYRINGE 0 ML IV SCH (06:00)
[2021-05-26] MEDS ORDERED: VANCOMYCIN TROUGH ONE ×2 (08:30→16:30)
== END 2021-05-25 14:30 | DRG 252 ==
LOC: ED 03:11 → SUATTDRO 08:16 → EDINP 08:16 → 1E 09:41 → 2W 05-23 11:13
PROC: CLB.AEU (2021-05-21 15:00)

== ENCOUNTER 2022-12-17 05:57 | Inpatient (IN) ==
--- NOTE | 2022-11-26 10:55 | PAT Medication Instructions ---
Medication Instructions Date of Service November 26, 2022 Home Medications Medication Instructions Recorded hydrocortisone 2.5 % topical cream 1 applic topical BID #30 grams 05/09/22 ketoconazole 2 % topical cream 1 applic topical BID #30 grams 05/09/22 fluticasone 250 mcg-salmeterol 50 mcg/dose blistr powdr for inhalation (Advair Diskus) 2 inh inhalation BID tramadol 100 mg tablet 50 - 100 mg PO Q6H PRN meloxicam 15 mg tablet (Mobic) 15 mg PO DAILY acetaminophen 325 mg tablet (Tylenol) 650 mg PO QID PRN aspirin 81 mg tablet,delayed release (Elias Low Dose Aspirin) 81 mg PO 3XWK atorvastatin 40 mg tablet 40 mg PO HS clopidogrel 75 mg tablet 75 mg PO DAILY phenylephrine 0.25 %-pramoxine 1 %-glycerin-wh.petrolatum rectal cream (Preparation H Maximum Strength) 1 applic DE QID PRN hydrocortisone 2.5 % topical cream 1 applic topical BID ketoconazole 2 % topical cream 1 applic topical BID vit C 250 mg-E 90 mg-zinc 40 mg-copper 1 [id number] chew tablet (PreserVision AREDS-2) 1 tab PO BID citalopram 10 mg tablet 20 mg PO DAILY amlodipine 10 mg tablet 10 mg PO QAM doxycycline monohydrate 100 mg capsule 100 mg PO BID aluminum-mag hydroxide-simethicone 200 mg-200 mg-20 mg/5 mL oral susp 30 ml PO DIRECTED PRN oxycodone 5 mg tablet 5 mg PO Q6H PRN pentoxifylline 400 mg tablet,extended release 400 mg PO TID Continue as directed citalopram 10 mg tablet 20 mg PO DAILY ASK your surgeon for instructions meloxicam 15 mg tablet (Mobic) 15 mg PO DAILY ASK your prescriber and surgeon pentoxifylline 400 mg tablet,extended release 400 mg PO TID (anesthesia recommendation would be do not take medication day of surgery-if acceptable by surgeon and prescriber) aspirin 81 mg tablet,delayed release (Elias Low Dose Aspirin) 81 mg PO 3XWK clopidogrel 75 mg tablet 75 mg PO DAILY STOP taking 2 weeks before surgery (or as soon as possible if surgery is within 2 weeks) vit C 250 mg-E 90 mg-zinc 40 mg-copper 1 je-ofmmbq-dkmeqy chew tablet (PreserVision AREDS-2) 1 tab PO BID STOP taking 24 hours before surgery phenylephrine 0.25 %-pramoxine 1 %-glycerin-wh.petrolatum rectal cream (Preparation H Maximum Strength) 1 applic DE QID PRN hydrocortisone 2.5 % topical cream 1 applic topical BID ketoconazole 2 % topical cream 1 applic topical BID DO NOT take the morning of surgery aluminum-mag hydroxide-simethicone 200 mg-200 mg-20 mg/5 mL oral susp 30 ml PO DIRECTED PRN Take morning of surgery With a small sip of water, OTHERWISE NOTHING TO EAT OR DRINK AFTER MIDNIGHT: fluticasone 250 mcg-salmeterol 50 mcg/dose blistr powdr for inhalation (Advair Diskus) 2 inh inhalation BID tramadol 100 mg tablet 50 - 100 mg PO Q6H PRN(if needed) acetaminophen 325 mg tablet (Tylenol) 650 mg PO QID PRN(if needed) amlodipine 10 mg tablet 10 mg PO QAM doxycycline monohydrate 100 mg capsule 100 mg PO BID oxycodone 5 mg tablet 5 mg PO Q6H PRN(if needed) Take evening before surgery fluticasone 250 mcg-salmeterol 50 mcg/dose blistr powdr for inhalation (Advair Diskus) 2 inh inhalation BID tramadol 100 mg tablet 50 - 100 mg PO Q6H PRN(if needed) acetaminophen 325 mg tablet (Tylenol) 650 mg PO QID PRN(if needed) atorvastatin 40 mg tablet 40 mg PO HS doxycycline monohydrate 100 mg capsule 100 mg PO BID oxycodone 5 mg tablet 5 mg PO Q6H PRN(if needed) Other Notes If you have any questions please call us at [phone] or [phone] or [phone] or [phone]
--- NOTE | 2022-12-04 13:08 | Anesthesiology Consultation ---
Date of Service December 04, 2022 Assessment & Plan (1) Encounter for pre-operative examination: - Check BSG AM DOS - S/P Right cataracts with IOL (10/28/22): MAC at [facility]. No issues noted per post- op anesthesia progress note. - Consents: Per [facility] staff member present at PAT visit and patient, patient signs own consents. Sons (Yazan/Titus) are available via phone DOS if needed.* - COVID screening: Per assessment on 12/04: No known COVID-19 positive contacts. Travel screen negative. Patient was Covid positive 10/13/22 (PCR, [facility]). No current Covid-19 related symptoms. Pt can proceed as scheduled without additional preop Covid testing or additional Covid contact precautions per 90 d ays protocol (called and made Mark with nursing staff at [facility] aware) - Carotid disease s/p Left CEA: 11/07/22 carotid duplex showedPatent left carotid endarterectomy with fibrofatty plaque at 70-79% restenosis. Imaging was reviewed by Dr. Padilla. Per Jaquelin at Dr. Padilla's office, nothing planned at this time in regards to carotid disease per their system. Chart Review Chart Review: Acceptable Risk for Surgery (pending evaluation AM DOS) and Patient seen in Pre Admission Testing Teaching & Discussion Pre-Anesthesia Teaching/Discussion Notes: Instructed NPO after midnight before surgery,except medications with 15 cc of water. Medication instructions provided according to the PAT guidelines. History Surgery Operation Date: 12/17/22 08:00 Proposed Procedures p Left Femoral Popliteal Bypass Graft - Elliot Padilla MD Height/Weight Height: 5 ft 1 in Weight: 61.235 kg (wheelchair bound- verbal weight) Allergies Allergy/AdvReac Type Severity Reaction Status Date / Time lorazepam [From Ativan] Allergy Mild Flushed, Verified 11/26/22 14:54 elevated BP, skin burning benzoyl peroxide Allergy Unknown Unknown Verified 11/25/22 09:34 Medications Home Medications Medication Instructions Recorded Confirmed Last Taken fluticasone 250 mcg-salmeterol 50 2 inh inhalation BID 11/13/20 11/25/22 09/02/21 mcg/dose blistr powdr for inhalation (Advair Diskus) tramadol 100 mg tablet 50 - 100 mg PO Q6H PRN Pain 04/28/21 11/25/22 Unknown meloxicam 15 mg tablet (Mobic) 15 mg PO DAILY 05/20/21 11/25/22 09/02/21 acetaminophen 325 mg tablet 650 mg PO QID PRN fever/pain 08/29/21 11/25/22 Unknown (Tylenol) aspirin 81 mg tablet,delayed 81 mg PO 3XWK 08/29/21 11/25/22 09/02/21 release (Elias Low Dose Aspirin) atorvastatin 40 mg tablet 40 mg PO HS 08/29/21 11/25/22 09/02/21 clopidogrel 75 mg tablet 75 mg PO DAILY 08/29/21 11/25/22 09/02/21 phenylephrine 0.25 %-pramoxine [address] QID PRN Hemorrhoids 08/29/21 11/25/22 Unknown %-glycerin-wh.petrolatum rectal cream (Preparation H Maximum Strength) hydrocortisone 2.5 % topical cream 1 applic topical BID #30 grams 05/09/22 11/25/22 Unknown ketoconazole 2 % topical cream 1 applic topical BID #30 grams 05/09/22 11/25/22 Unknown vit C 250 mg-E 90 mg-zinc 40 1 tab PO BID 06/20/22 11/25/22 Unknown mg-copper 1 zo-dkxiau-uopplj chew tablet (PreserVision AREDS-2) citalopram 10 mg tablet 20 mg PO DAILY 08/01/22 11/25/22 Unknown amlodipine 10 mg tablet 10 mg PO QAM 10/21/22 11/25/22 Unknown doxycycline monohydrate 100 mg 100 mg PO BID 10/21/22 11/25/22 Unknown capsule aluminum-mag hydroxide-simethicone 30 ml PO DIRECTED PRN 11/25/22 11/25/22 Unknown 200 mg-200 mg-20 mg/5 mL oral susp Indigestion oxycodone 5 mg tablet 5 mg PO Q6H PRN Pain 11/25/22 11/25/22 Unknown pentoxifylline 400 mg 400 mg PO TID 11/25/22 11/25/22 Unknown tablet,extended release Past Medical History Medical History Altered mental status Carotid stenosis, asymptomatic s/p Left carotid endarterectomy (7 years ago) 70-79% Left CEA with fibrofatty plaque and 70-79% restenosis per 10/2022 carotid duplex Chronic obstructive pulmonary disease CKD (chronic kidney disease) Diabetes Dysphagia Metabolic encephalopathy Hx [facility] resident Osteomyelitis Hx PAD (peripheral artery disease) PVD (peripheral vascular disease) Solitary pulmonary nodule Exercise / Class Metabolic Activity IV < 2 Limit ADL/Bedbound Past Surgical History Surgical History History of carotid endarterectomy Left carotid endarterectomy (7 years ago) History of cataract surgery R/L Right (10/28/22): MAC at [facility] Hx of angiography B/L LE angiogram 09/13/22 [place] Angiogram with stent left external iliac artery Hx of right BKA Past Anesthesia History No Hx of Anesthesia Complications and No Family Hx of Anesthesia Complications History of PONV No Hx of PONV and No Hx of Motion Sickness Social History Smoking Status: Current some day smoker tobacco type: cigarettes Do You Dip or Chew Tobacco: No Smoking End Date: Occasional cigarette use (when shopping) Hx Alcohol Use: No Hx Substance Use: No substance use type: does not use Review of Systems Patient denies chest pain, shortness of breath, reflux, cough, wheezing, palpitations. Physical Exam Vital Signs VITALS BP 137/66 P 61 TEMP 97.8 SP02 96%RA RESP 16 PHYSICAL Full cervical extension range of motion. Full TMJ range of motion. TMD 3.5 finger breaths Mallampati Score 3 Dentition: upper plate, missing sides/molars Lungs: course breath sounds Cardiac: regular rate and rhythm, no murmurs noted Spine: normal Carotid arteries: negative bruit Extremities: right BKA Lab Results Anesthesia Preop Results Results Anesthesia Widget: WBC 7.42 K/ul (4.8-10.8) 12/04/22 Hgb 12.1 g/dl (12.0-16.0) 12/04/22 Hct 38.1 % (37.0-47.0) 12/04/22 Plt 290 K/uL (130-400) 12/04/22 Na 140 mmol/L (136-145) 12/04/22 K 4.6 mmol/L (3.5-5.1) 12/04/22 Cl 108 mmol/L (98-107) H 12/04/22 CO2 27 mmol/L (21-32) 12/04/22 BUN 28 mg/dl (6-23) H 12/04/22 Creat 1.48 mg/dl (0.6-1.2) H 12/04/22 Glucose Level 203 mg/dl (70-99(Fasting)) H 12/04/22 PT 10.8 Seconds (9.0-12.0) 12/04/22 PTT 24.9 Seconds (21.0-31.0) 12/04/22 INR 1.0 (0.9-1.1) 12/04/22 COVID-19 PCR POSITIVE (Negative) A* 10/14/22 Blood Type B Positive 12/04/22 Antibody Screen NEGATIVE 12/04/22 Testing Laboratory Results 08/30/22 HGBA1C 7.3% Electrocardiogram Date: 12/04/22 NSR at 61bpm. 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 The heart is top normal for projection noting atherosclerotic calcification of the thoracic aorta. Emphysema and chronic interstitial thickening is similar to previous. There is chronic elevation of the right hemidiaphragm with bibasilar scarring/atelectasis. There is no pneumothorax. The skeletal structures are osteopenic. The bony thorax appears intact. Degenerative change is noted in the spine. Cholecystectomy clips are seen in the upper abdomen. IMPRESSION: Emphysema and chronic parenchymal changes as above with no acute cardiopulmonary abnormality identified. Suspicious pulmonary lesions seen on prior chest CT scans are not well visualized by x-ray. Other Testing Carotid duplex (11/07/22) No hemodynamically significant stenosis in the R ICA. Patent left carotid endarterectomy with fibrofatty plaque at 70-79% restenosis. Plaque ulceration is visualized in the carotid bulb. Greater than 50% stenosis in the right external carotid artery. No significant stenosis in the left external carotid artery. Antegrade flow in the bilateral vertebral arteries. Normal flow in the bilateral subclavian arteries.
[2022-12-17] MEDS ORDERED: LACTATED RINGER'S 1,000 ML BAG IV SCH (06:00)
[2022-12-17] MEDS ORDERED: CEFAZOLIN 2,000 MG/15 ML SYR IV SCH (06:00)
[2022-12-17] MEDS ORDERED: PAPAVERINE HCL INJ 30 MG/ML 2 ML VIAL ONE (07:06)
[2022-12-17] MEDS ORDERED: LIDOCAINE 1% LOCAL 20 ML VIAL ONE (07:06)
[2022-12-17] MEDS ORDERED: HEPARIN (PORCINE) 1000 UNIT/ML 10 ML (CATH LAB USE ONLY) ONE (07:06)
[2022-12-17] MEDS ORDERED: BUPIVACAINE/EPINEPHRINE 0.5% MPF 1:200,000 30 ML VIAL ONE (07:06)
[2022-12-17] MEDS ORDERED: ceFAZolin 330 MG/ML 1 GM VIAL ONE (07:07)
[2022-12-17] MEDS ORDERED: THROMBIN 5000 UNITS KIT ONE (07:07)
[2022-12-17] MEDS ORDERED: GELATIN SPONGE SZ 100 ONE (07:08)
[2022-12-17] MEDS ORDERED: PROPOFOL IV EMULSION 10 MG/ML 20 ML VIAL IV ONE (07:25)
[2022-12-17] MEDS ORDERED: ROCURONIUM BROMIDE 10 MG/ML 5 ML VIAL IV ONE ×6 (07:25→08:45)
[2022-12-17] MEDS ORDERED: LIDOCAINE 2% 2 ML VIAL/AMP(20MG/ML) INFIL ONE (07:25)
[2022-12-17] MEDS ORDERED: fentaNYL citrate PF 100 MCG/2 ML VIAL ONE ×2 (07:25→09:49)
--- NOTE | 2022-12-17 07:42 | History & Physical Report ---
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 I have discussed the risks options and benefits of the procedure with the patient. The patient understands the risks options and benefits and agrees to the procedure. History of Present Illness Chief Complaint: Left sfa occlusion with rest pain and ulcerations of foot Primary Care Provider: [facility] This is an 82 yo female who has had a right leg amputation in the past. She recently had a stenting of her left ext iliac artery. She presented with worsening ulcerations of her left toes and foot as well as rest pain in the left leg. She is admitted for an attempt at limb salvage bypass. She does not have a useable vein in her left leg. Allergies Allergy/AdvReac Type Severity Reaction Status Date / Time benzoyl peroxide Allergy Severe Rash Verified 12/17/22 06:31 lorazepam [From Ativan] Allergy Mild Flushed, Verified 12/17/22 06:31 elevated BP, skin burning Home Medications Medication Instructions Recorded Confirmed Type tramadol 100 mg tablet 50 - 100 mg PO Q6H PRN Pain 04/28/21 12/17/22 History meloxicam 15 mg tablet (Mobic) 15 mg PO DAILY 05/20/21 12/17/22 History acetaminophen 325 mg tablet 650 mg PO QID PRN fever/pain 08/29/21 12/17/22 History (Tylenol) aspirin 81 mg tablet,delayed 81 mg PO 3XWK 08/29/21 12/17/22 History release (Elias Low Dose Aspirin) atorvastatin 40 mg tablet 40 mg PO HS 08/29/21 12/17/22 History clopidogrel 75 mg tablet 75 mg PO DAILY 08/29/21 12/17/22 History phenylephrine 0.25 %-pramoxine 1 1 applic [place] QID PRN Hemorrhoids 08/29/21 12/17/22 History %-glycerin-wh.petrolatum rectal cream (Preparation H Maximum Strength) hydrocortisone 2.5 % topical cream 1 applic topical BID #30 grams 05/09/22 12/17/22 Rx ketoconazole 2 % topical cream 1 applic topical BID #30 grams 05/09/22 12/17/22 Rx vit C 250 mg-E 90 mg-zinc 40 1 tab PO BID 06/20/22 12/17/22 History mg-copper 1 dt-nbubey-xcbajl chew tablet (PreserVision AREDS-2) citalopram 10 mg tablet 20 mg PO DAILY 08/01/22 12/17/22 History amlodipine 10 mg tablet 10 mg PO QAM 10/21/22 12/17/22 History doxycycline monohydrate 100 mg 100 mg PO BID 10/21/22 12/17/22 History capsule aluminum-mag hydroxide-simethicone 30 ml PO DIRECTED PRN 11/25/22 12/17/22 History 200 mg-200 mg-20 mg/5 mL oral susp Indigestion oxycodone 5 mg tablet 5 mg PO Q6H PRN Pain 11/25/22 12/17/22 History pentoxifylline 400 mg 400 mg PO TID 11/25/22 12/17/22 History tablet,extended release fluticasone 250 mcg-salmeterol 50 1 inh inhalation BID 12/17/22 12/17/22 History mcg/dose blistr powdr for inhalation (Advair Diskus) Past Med/Surg History Medical History Altered mental status Carotid stenosis, asymptomatic s/p Left carotid endarterectomy (7 years ago) 70-79% Left CEA with fibrofatty plaque and 70-79% restenosis per 10/2022 carotid duplex Chronic obstructive pulmonary disease CKD (chronic kidney disease) Diabetes Dysphagia Metabolic encephalopathy Hx residential resident Osteomyelitis Hx PAD (peripheral artery disease) PVD (peripheral vascular disease) Solitary pulmonary nodule Surgical History History of carotid endarterectomy Left carotid endarterectomy (7 years ago) History of cataract surgery R/L Right (10/28/22): [place] [facility] [place] of angiography B/[place] LE angiogram 09/13/22 [place] Angiogram with stent left external iliac artery Hx of right BKA Social History Smoking Status: Current some day smoker Tobacco Type: Cigarettes Smoking End Date: Occasional cigarette use (when shopping); Do You Dip or Chew Tobacco: No; Tobacco Cessation Education Requested by Patient: No Hx Alcohol Use: No Hx Substance Use: No Preferred Language: Maori Communication Ability: Effective Educational Technology Coordinator Required: No Beliefs That Will Affect Care: None marital status: / Current Living Situation: Personal Care Facility How many Children do You have: 2 Other Information That Helps Us Care for You: No Feels Safe at Home: Yes Assistive Devices: Wheelchair Review of Systems All systems reviewed & are unremarkable except as noted in HPI & below Physical Exam Constitutional: WD/WN, vitals as above Respiratory: normal respiratory effort, lungs clear to auscultation Cardiovascular: RRR, no murmur, no edema Vessels: femoral pulses present; + posterior tibial pulses abnormal and + dorsalis pedis pulses abnormal Extremities: + abnormal capillary refill Gastrointestinal (Abdomen): normal bowel sounds, soft, nontender, no hep atosplenomegaly Musculoskeletal: Extremities: strength 5/5 throughout, + cyanosis and + amputation noted (right lower extremity) Skin: + ulcer (toes of left foot and lateral foot) Neurologic: CN's II-XI intact bilaterally and moves all extremities Results & Data Vital Signs (Past 12 Hours) Vital Signs O2 Del Method 12/17/22 06:43 Room Air
[2022-12-17] MEDS ORDERED: MIDAZOLAM HCL 1 MG/ML 2ML VIAL ONE (07:56)
[2022-12-17] MEDS ORDERED: ONDANSETRON INJ 2 MG/ML 2 ML VIAL ONE (08:29)
[2022-12-17] MEDS ORDERED: DEXAMETHASONE SOD INJ 4 MG/ML VIAL ONE (08:29)
[2022-12-17] MEDS ORDERED: ATROPINE SULFATE 0.1 MG/ML 10ML SYR IV PRN (08:30)
[2022-12-17] MEDS ORDERED: ONDANSETRON INJ 2 MG/ML 2 ML VIAL IV PRN (08:30)
[2022-12-17] MEDS ORDERED: ePHEDrine sulfate 50 MG/ML AMP IV PRN (08:30)
[2022-12-17] MEDS ORDERED: PROMETHAZINE HCL 12.5 MG in SODIUM CHLORIDE 0.9% 50 ML IV PRN (08:30)
[2022-12-17] MEDS ORDERED: HYDROmorphone INJ 1 MG/ML SYRINGE IV PRN (08:30)
[2022-12-17] MEDS ORDERED: THROMBIN FOR SOLN 20000 UNIT KIT ONE (08:53)
[2022-12-17] MEDS ORDERED: VISIPAQUE IV ONE (09:04)
[2022-12-17] MEDS ORDERED: HEPARIN SOD (PORCINE) 1000 UNIT/ML ONE (09:09)
[2022-12-17] MEDS ORDERED: PROTAMINE SULFATE 10 MG/ML 5 ML VIAL IV ONE (10:56)
[2022-12-17] MEDS ORDERED: GLYCOPYRROLATE 0.2 MG/ML VIAL ONE (11:09)
[2022-12-17] MEDS ORDERED: NEOSTIGMINE METHYLSULFATE 1 MG/ML 10ML VIAL ONE (11:09)
--- NOTE | 2022-12-17 11:39 | Post Operative Brief Note ---
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
[2022-12-17] MEDS: fentaNYL citrate PF 100 MCG/2 ML VIAL IV PRN ×3 (12:31→12:41)
[2022-12-17 12:37] LABS: Basophils # (auto) 0.04 K/uL (0-0.2); Basophils % (auto) 0.2 %; Eosinophils # (auto) 0.07 K/uL (0-0.50); Eosinophils % (auto) 0.4 %; Hematocrit (blood only) 39.3 % (37.0-47.0); Hemoglobin 12.4 g/dl (12.0-16.0); Immature Granulocytes # (auto) 0.13 K/uL (0.01-0.20); Immature Granulocytes % (auto) 0.8 %; Lymphocytes # (auto) 1.69 K/uL (1.2-3.4); Lymphocytes % (auto) 9.9 %; Mean Corpuscular Hemoglobin 29.5 pg (25.0-34.0); Mean Corpuscular Hgb Conc 31.6 g/dL (32.0-36.0); Mean Corpuscular Volume 93.3 fL (80.0-100.0); Mean Platelet Volume 10.7 fL (9.4-12.4); Monocytes # (auto) 0.25 K/uL (0.11-0.59); Monocytes % (auto) 1.5 %; Neutrophils # (auto) 14.87 K/uL (1.40-6.50); Neutrophils % (auto) 87.2 %; Platelet Count 287 K/uL (130-400); RDW Coefficient of Variation 14.6 % (11.5-14.5); RDW Standard Deviation 50.3 fL (36.4-46.3); Red Blood Count 4.21 M/uL (4.20-5.40); White Blood Count 17.05 K/ul (4.8-10.8)
--- NOTE | 2022-12-17 12:49 | Anesthesiology Progress Note ---
Date of Service December 17, 2022 Anesthesia Post Procedure Vital Signs Vital Signs: Temp Pulse Resp BP Pulse Ox O2 Del Method O2 Flow Rate 12/17/22 12:35 63 18 152/67 H 88 L Nasal Cannula 3.5 12/17/22 12:25 63 15 178/66 H 91 Nasal Cannula 3.5 12/17/22 12:15 64 18 174/70 H 90 Oxymask 8 12/17/22 12:05 64 18 174/70 H 92 Oxymask 8 12/17/22 11:55 83 20 190/70 H 90 Oxymask 10 12/17/22 11:45 36.4 C L 78 24 184/70 H 92 Oxymask 10 12/17/22 06:43 Room Air Pain Intensity Left Leg: Pain Intensity: 7 Transfer of Care Handoff Completed per policy Notes Mental Status: alert / awake / arousable and participated in evaluation Patient Amnestic to Procedure: Yes Nausea / Vomiting: adequately controlled Pain: adequately controlled Airway Patency, RR, SpO2: stable & adequate BP & HR: stable & adequate Hydration State: stable & adequate Anesthetic Complications: no major complications apparent
[2022-12-17] MEDS: ceFAZolin 2000MG 2,000 MG/15 ML SYR IV SCH ×2 (14:00→16:52)
[2022-12-17] MEDS: D5W AND 1/2NSS 1,000 ML IV SCH ×3 (14:00→22:04)
[2022-12-17] MEDS ORDERED: ALUMINUM/MAGNESIUM/SIMETH (MAALOX MAX) 30 ML UDC PO PRN (14:11)
[2022-12-17] MEDS: HYDROmorphone INJ 0.5 MG/0.5 ML SYR IV PRN ×3 (14:27→22:47)
[2022-12-17] MEDS ORDERED: DEXTROSE 50% 50 ML SYRINGE IV PRN ×2 (14:36→16:37)
[2022-12-17] MEDS ORDERED: GLUCOSE 10 TAB/TUBE PO PRN ×2 (14:36→16:37)
[2022-12-17] MEDS ORDERED: CARBOHYDRATES FOR HYPOGLYCEMIA PO PRN ×2 (14:36→16:37)
[2022-12-17] MEDS ORDERED: GLUCAGON FOR INJ 1 MG VIAL SQ PRN ×2 (14:36→16:37)
[2022-12-17] MEDS ORDERED: GLUCOSE 40% GEL 15 GM TUBE PO PRN ×2 (14:36→16:37)
[2022-12-17] MEDS: PENTOXIFYLLINE 400MG EXT REL TAB PO SCH ×2 (14:43→20:11)
--- NOTE | 2022-12-17 14:44 | Critical Care Consultation ---
Date of Consultation December 17, 2022 Assessment & Plan (1) S/P femoral-popliteal bypass surgery: (2) Atherosclerosis of artery of extremity with rest pain: (3) Chronic obstructive pulmonary disease: (4) History of tobacco use: (5) Diabetes: (6) Pulmonary lesion: Plan Reason Critically Ill: 82-year-old female admitted to the ICU status post LEFT- sided femoropopliteal bypass in the setting of LEFT SFA occlusion and ulcerations of the LEFT foot requiring ongoing hemodynamic and vascular monitoring status post surgical intervention. NEURO - * LLE Pain * Expected in the postoperative vascular patient. * PRN Dilaudid CARDIAC/VASCULAR - * Ischemia LLE s/p Fem-Pop bypass: * Continue vascular monitoring per surgery recommendations. * Monitor for s/s bleeding s/p vascular surgery. * Postoperative management per vascular. * HTN: * Continue home Norvasc when appropriate. * Monitor on telemetry. RESPIRATORY - * Hypoxia: * Likely multifactorial in the postoperative geriatric patient who underwent general anesthesia and is currently bronchospastic on exam today. * Orders placed for DuoNebs, Perforomist, and budesonide. * Will treat the patient with aggressive pulmonary toilet including incentive spirometry in the postoperative phase. * Hopefully will be able to transition patient back to her home inhaler soon. * COPD: * Currently on Advair daily. * Last PFTs obtained in 08/15/2021 demonstrated an FVC of 2.01 L or 74% predicted, FEV1 of 1.63 L or 82% predicted, and ratio of 81%. DLCO significantly reduced at 36% with minimal correction for alveolar ventilation. * Pulmonary nodule: * Patient with 12 mm nodule noted to the LEFT lower lobe which had increased in size from 12/03/2020 to 07/11/2021. The patient had an outpatient PET scan performed which demonstrated a lesion in the LEFT lower lobe with FDG avidity with SUV max 1.5. Patient had apparently refused any intervention at that time, but did agree to follow-up CT in 3 months which had not been performed. * Will follow up discussion with this patient during hospitalization. Currently, she is receiving narcotics and would rather she be of clearer mind when discussing this. GI/NUTRITION - * Progress diet as tolerated. * AHA/DM Diet RENAL/LYTES - * CKD: * No significant electrolyte derangements. * IVF: Can D/C IVF when patient taking PO - * Casanova in place - Strict I&Os. ENDO - * DMII * BSGs per unit protocol. ISS --> gtt per unit policy. HEME - * Stable H&H * Monitor for s/s bleeding s/p vascular procedure. ID - * LLE Ulcerations: * Currently on Doxy. LINES/IV ACCESS - * PIVs x2 * Casanova DVT PROPHYLAXIS - * Hold on chemoprophylaxis s/p vascular intervention. * SCDs Thank you for allowing us to participate in the care of this patient. Please refer to my attending physician's documentation for any further recommendations. Supervising Physician Co-Signing Physician Notes I saw and evaluated the patient with Trae Silver PA-C, and agree with findings and plan as documented in the note. 82-year-old female present to the hospital for left femoropopliteal bypass Past medical history: COPD, multiple pulmonary nodules, hypertension, CKD, diabetes Patient was sent to the ICU for further care postsurgical intervention. At the time of examination patient was on 5 L nasal cannula saturating 95%, I went down to 3 L if she was still saturating 92% She denied any chest pain, no headache, no nausea, no vomiting Pain in the left lower extremity was controlled She has been coughing up phlegm and unable to bring up the phlegm. Denies any hemoptysis. Systolic blood pressure was in the 150s. Constitutional: No acute distress HEENT: EOMI, PERRLA Respiratory system: Decreased air entry bilaterally, positive expiratory wheeze, positive rhonchi bilaterally, positive crackles bilateral lower lobes CVS: S1-S2 positive, no murmurs or gallops Abdomen: Soft, nontender, nondistended, positive bowel sounds x4 Extremities: +2 pulses bilaterally radialis/+1 pulse left dorsalis pedis, right BKA no cyanosis, +1 pitting edema left lower extremity, dry necrosis of left third and the fourth toe on the left Neuro: Awake alert oriented x3 Psych: Normal mood and affect G/U: Positive Casanova --Prophylaxis VTE: None GI: Pantoprazole Lines: Peripheral Diet: Cardiorenal Plan: Strict in and out Monitor pulse in the left lower extremity And is actively wheezing and requiring oxygen. Start the patient on budesonide and formoterol. We will give hypertonic saline, Mucinex as well as flutter valve. We will consider steroids if there is no improvement Continue with Plavix and pentoxifylline Given the patient is on standing meloxicam start the patient on pantoprazole on a daily basis Patient also has multiple pulmonary nodules. Largest being in the left lower lobe. She had a PET/CT done back in 2020 which was negative. She was supposed to have another CAT scan done in 3 months but she lost follow- up. She had refused any intervention at that time Continue with pain management for the left lower extremity pain Please note the above document was generated using voice recognition software. It may contain grammatical, syntax or spelling errors.Any formal questions or concerns about the content, text or information contained within the body of this dictation should be directly addressed to the provider for clarification. History of Present Illness Reason for Consultation: post op fem pop bypass Requesting Physician: Dr. Padilla Attending Physician: Elliot Padilla MD History of Present Illness Patient is an 82-year-old female with significant past medical history of chronic, nonhealing wounds, history of RIGHT-sided BKA, carotid artery disease post LEFT CEA, LEFT subclavian artery disease, chronic venous insufficiency, type 2 diabetes, tobacco abuse, COPD, pulmonary nodule, urge incontinence, spinal stenosis, chronic pain with peripheral neuropathy. Patient has undergone multiple vascular interventions in the past. She has recently undergone stentin g of her LEFT external iliac artery he was seen by vascular surgery for worsening ulcerations of her LEFT toes and foot as well as pain in the LEFT lower extremity. Patient was admitted for attempt at limb salvage bypass of the LEFT lower extremity. The patient underwent LEFT femoral-popliteal bypass. She had an estimated EBL of 100 mL. Patient admitted to the ICU postoperatively for ongoing management. Upon evaluation in the ICU, patient is awake, but slightly drowsy. She does not contribute much to HPI. She does complain of pain to the LEFT lower leg. Allergies Allergy/AdvReac Type Severity Reaction Status Date / Time benzoyl peroxide Allergy Severe Rash Verified 12/17/22 06:31 lorazepam [From Ativan] Allergy Mild Flushed, Verified 12/17/22 06:31 elevated BP, skin burning Home Medications Medication Instructions Recorded Confirmed Type tramadol 100 mg tablet 50 - 100 mg PO Q6H PRN Pain 04/28/21 12/17/22 History meloxicam 15 mg tablet (Mobic) 15 mg PO DAILY 05/20/21 12/17/22 History acetaminophen 325 mg tablet 650 mg PO QID PRN fever/pain 08/29/21 12/17/22 History (Tylenol) aspirin 81 mg tablet,delayed 81 mg PO 3XWK 08/29/21 12/17/22 History release (Elias Low Dose Aspirin) atorvastatin 40 mg tablet 40 mg PO HS 08/29/21 12/17/22 History clopidogrel 75 mg tablet 75 mg PO DAILY 08/29/21 12/17/22 History phenylephrine 0.25 %-pramoxine 1 1 applic [place] QID PRN Hemorrhoids 08/29/21 12/17/22 History %-glycerin-wh.petrolatum rectal cream (Preparation H Maximum Strength) hydrocortisone 2.5 % topical cream 1 applic topical BID #30 grams 05/09/22 12/17/22 Rx ketoconazole 2 % topical cream 1 applic topical BID #30 grams 05/09/22 12/17/22 Rx vit C 250 mg-E 90 mg-zinc 40 1 tab PO BID 06/20/22 12/17/22 History mg-copper 1 fc-ofzrgj-helofz chew tablet (PreserVision AREDS-2) citalopram 10 mg tablet 20 mg PO DAILY 08/01/22 12/17/22 History amlodipine 10 mg tablet 10 mg PO QAM 10/21/22 12/17/22 History doxycycline monohydrate 100 mg 100 mg PO BID 10/21/22 12/17/22 History capsule aluminum-mag hydroxide-simethicone 30 ml PO DIRECTED PRN 11/25/22 12/17/22 H istory 200 mg-200 mg-20 mg/5 mL oral susp Indigestion oxycodone 5 mg tablet 5 mg PO Q6H PRN Pain 11/25/22 12/17/22 History pentoxifylline 400 mg 400 mg PO TID 11/25/22 12/17/22 History tablet,extended release fluticasone 250 mcg-salmeterol 50 1 inh inhalation BID 12/17/22 12/17/22 History mcg/dose blistr powdr for inhalation (Advair Diskus) Patient History Medical History Altered mental status Carotid stenosis, asymptomatic s/p Left carotid endarterectomy (7 years ago) 70-79% Left CEA with fibrofatty plaque and 70-79% restenosis per 10/2022 carotid duplex Chronic obstructive pulmonary disease CKD (chronic kidney disease) Diabetes Dysphagia Metabolic encephalopathy Hx [facility] resident Osteomyelitis Hx PAD (peripheral artery disease) PVD (peripheral vascular disease) Solitary pulmonary nodule Surgical History History of carotid endarterectomy Left carotid endarterectomy (7 years ago) History of cataract surgery [place] Right [place]10/28/22[place] [facility] [place] B/[place] LE [place] Angiogram with stent left external iliac artery Hx of right BKA Social History Smoking Status: Current some day smoker Tobacco Type: Cigarettes Smoking End Date: Occasional cigarette use (when shopping); Do You Dip or Chew Tobacco: No; Tobacco Cessation Education Requested by Patient: No Hx Alcohol Use: No Hx Substance Use: No Preferred Language: Romanian Communication Ability: Effective Worker'S Compensation Claims Examiner Required: No Beliefs That Will Affect Care: None marital status: / Current Living Situation: Personal Care Facility How many Children do You have: 2 Other Information That Helps Us Care for You: No Feels Safe at Home: Yes Assistive Devices: Wheelchair Review of Systems Review of Systems: A complete 10 point review of systems was reviewed with the patient with pertinent positives and negatives as per history of present illness. All else were negative. Physical Exam Physical Exam: VITAL SIGNS - Vital signs and nursing notes were reviewed. GENERAL - 82-year-old female appearing her stated age who is in no acute distress. Communicates well with provider and answers questions appropriately. HEAD - NC/AT. EYES - PERRL with EOMI bilaterally. Sclera anicteric. NOSE - Midline and without cyanosis. No epistaxis or purulent drainage noted. MOUTH/OROPHARYNX - Without perioral cyanosis. Buccal mucosa pink and moist. NECK - Neck with FROM. LUNGS - Moderately bronchospastic throughout all lung lambert. CARDIAC - RRR with S1/S2. No murmur, rubs, or gallops appreciated. No reproducible tenderness to palpation appreciated over the anterior chest wall. ABDOMEN - Abdominal contour flat without pulsations or visible masses. BS normoactive all four quadrants. No tenderness, palpable masses, hepatosplenomegaly, or ascites noted. EXTREMITIES - Dressings to the LEFT lower extremity and groin clean, dry, and intact. Dopplerable LEFT sided DP/PT pulses. RIGHT sided BKA. NEUROLOGIC - Cranial nerves II through XII grossly intact. PSYCH - Awake and alert. Limited by drowsiness. Results & Data Results & Data Vital Signs (Past 12 Hours) Vital Signs Temp Pulse Pulse Resp BP BP Pulse Ox 12/17/22 13:30 12/17/22 13:17 75 17 161/69 H 90 12/17/22 13:05 68 14 157/69 H 92 12/17/22 12:55 89 18 141/85 H 91 12/17/22 12:45 36.5 C 80 22 149/59 H 92 12/17/22 12:35 63 18 152/67 H 88 L 12/17/22 12:25 63 15 178/66 H 91 12/17/22 12:15 64 18 174/70 H 90 12/17/22 12:05 64 18 174/70 H 92 12/17/22 11:55 83 20 190/70 H 90 12/17/22 11:45 36.4 C L 78 24 184/70 H 92 12/17/22 06:43 O2 Del Method O2 Flow Rate 12/17/22 13:30 Nasal Cannula 3 12/17/22 13:17 12/17/22 13:05 Nasal Cannula 3 12/17/22 12:55 Nasal Cannula 3 12/17/22 12:45 Nasal Cannula 3.5 12/17/22 12:35 Nasal Cannula 3.5 12/17/22 12:25 Nasal Cannula 3.5 12/17/22 12:15 Oxymask 8 12/17/22 12:05 Oxymask 8 12/17/22 11:55 Oxymask 10 12/17/22 11:45 Oxymask 10 12/17/22 06:43 Room Air Laboratory Results 12/17/22 12:17 Coding Level of Care Code 45057 IN/OBS CONSULT LVL 5,80M Diagnoses S/P femoral-popliteal bypass surgery Z95.828 Atherosclerosis of artery of extremity with rest pain I70.229 Chronic obstructive pulmonary disease J44.9 History of tobacco use Z87.891 Diabetes E11.9 Pulmonary lesion J98.4
--- NOTE | 2022-12-17 15:09 | XRay Report ---
XR chest 1V portable HISTORY: 82 years-old Female hypoxia COMPARISON: 12/04/2022 TECHNIQUE: AP view of the chest FINDINGS: Cardiac mediastinal and hilar silhouettes are within normal limits. Unchanged right hemidiaphragmatic elevation. Left lower lobe pulmonary nodule again noted measuring approximately 1.6 cm. Mild ill-def ined right upper lung airspace opacities appear new from prior. Degenerative changes of the shoulders and spine. Cholecystectomy. IMPRESSION: 1. Subsegmental right upper lung opacities are suspicious for an infectious or inflammatory pneumonit is. 2. Unchanged right hemidiaphragmatic elevation. 3. Left lower lobe pulmonary nodule again noted. ACT 112: Negative or not required by law. The above report was generated using voice recognition software. It may contain grammatical, syntax o r spelling errors. Electronically signed by: Carlos Monsivais M.D. 12/17/2022 3:08 PM
[2022-12-17] MEDS: ALBUT/IPRATROP 3MG/0.5MG NEB 3 ML VIAL INH SCH ×2 (15:25→20:24)
[2022-12-17] MEDS: SODIUM CHLOR 7% 4 ML NEB NEB SCH ×2 (15:34→20:23)
[2022-12-17] MEDS: PANTOprazole 40 MG TAB PO SCH (16:31)
[2022-12-17] MEDS ORDERED: INSULIN ASPART PER UNIT CHARGE ONE (16:55)
[2022-12-17] MEDS: INSULIN ASPART PER UNIT CHARGE SC SCH ×2 (16:55→20:09)
[2022-12-17] MEDS ORDERED: PLASMA-LYTE A 1,000 ML IV SCH (19:00)
[2022-12-17] MEDS: ATORVASTATIN 40 MG TAB PO SCH (20:09)
[2022-12-17] MEDS: DOXYCYCLINE HYCLATE 100 MG CAP PO SCH (20:09)
[2022-12-17] MEDS: guaiFENesin 600 MG TABCR PO SCH (20:09)
[2022-12-17] MEDS: HYDROCORTISONE 2.5% CR 30 GM TUBE EXT SCH (20:10)
[2022-12-17] MEDS: CEROVITE ADV FORMULA TAB PO SCH (20:11)
[2022-12-17] MEDS: KETOCONAZOLE 2% CR 15 GM TUBE EXT SCH (20:16)
[2022-12-17] MEDS: BUDESONIDE 0.5 MG/2 ML VIAL (PULMICORT) NEB SCH (20:23)
[2022-12-17] MEDS: FORMOTEROL 20 MCG/2 ML VIAL NEB SCH (20:23)
[2022-12-17] MEDS: oxyCODONE HCL IR 5 MG TAB (IMMEDIATE RELEASE) PO PRN (21:50)
[2022-12-18] MEDS: ceFAZolin 2000MG 2,000 MG/15 ML SYR IV SCH (00:21)
[2022-12-18] MEDS: ALBUT/IPRATROP 3MG/0.5MG NEB 3 ML VIAL INH SCH ×4 (00:42→19:25)
[2022-12-18] MEDS: HYDROmorphone INJ 0.5 MG/0.5 ML SYR IV PRN ×4 (01:14→20:22)
[2022-12-18] MEDS: ACETAMINOPHEN 325 MG TAB PO PRN (02:29)
[2022-12-18 06:24] LABS: Basophils # (auto) 0.03 K/uL (0-0.2); Basophils % (auto) 0.3 %; Calcium 8.1 mg/dl (8.6-10.3); Eosinophils # (auto) 0.01 K/uL (0-0.50); Eosinophils % (auto) 0.1 %; Hematocrit (blood only) 28.3 % (37.0-47.0); Immature Granulocytes # (auto) 0.04 K/uL (0.01-0.20); Immature Granulocytes % (auto) 0.4 %; Lymphocytes # (auto) 1.26 K/uL (1.2-3.4); Lymphocytes % (auto) 13.8 %; Mean Corpuscular Hemoglobin 29.4 pg (25.0-34.0); Mean Corpuscular Hgb Conc 31.8 g/dL (32.0-36.0); Mean Corpuscular Volume 92.5 fL (80.0-100.0); Mean Platelet Volume 10.9 fL (9.4-12.4); Monocytes # (auto) 0.92 K/uL (0.11-0.59); Monocytes % (auto) 10.1 %; Neutrophils # (auto) 6.85 K/uL (1.40-6.50); Neutrophils % (auto) 75.3 %; Platelet Count 231 K/uL (130-400); Potassium 4.6 mmol/L (3.5-5.1); RDW Coefficient of Variation 14.5 % (11.5-14.5); RDW Standard Deviation 49.1 fL (36.4-46.3); Red Blood Count 3.06 M/uL (4.20-5.40); White Blood Count 9.11 K/ul (4.8-10.8)
[2022-12-18 06:30] LABS: BUN Creatinine Ratio 18.8 (10-20); Creatinine Clr Calc Pharmacy 26.8 ml/min; Est GFR (African American) 41.7 ml/min
[2022-12-18] MEDS: FORMOTEROL 20 MCG/2 ML VIAL NEB SCH ×2 (07:11→19:24)
[2022-12-18] MEDS: BUDESONIDE 0.5 MG/2 ML VIAL (PULMICORT) NEB SCH ×2 (07:11→19:25)
[2022-12-18] MEDS: SODIUM CHLOR 7% 4 ML NEB NEB SCH ×2 (07:11→19:24)
--- NOTE | 2022-12-18 07:53 | Critical Care Progress Note ---
Date of Service December 18, 2022 Assessment & Plan (1) S/P femoral-popliteal bypass surgery: (2) Atherosclerosis of artery of extremity with rest pain: (3) Chronic obstructive pulmonary disease: (4) History of tobacco use: (5) Diabetes: (6) Pulmonary lesion: Plan Reason Critically Ill: 82-year-old female admitted to the ICU status post LEFT- sided femoropopliteal bypass in the setting of LEFT SFA occlusion and ulcerations of the LEFT foot requiring ongoing hemodynamic and vascular monitoring status post surgical intervention. NEURO - * LLE Pain * Expected in the postoperative vascular patient. * PRN Dilaudid CARDIAC/VASCULAR - * Ischemia LLE s/p Fem-Pop bypass 12/17/2022: * Continue vascular monitoring per surgery recommendations. * Monitor for s/s bleeding s/p vascular surgery. * Postoperative management per vascular. * HTN: * Continue home Norvasc when appropriate. * Monitor on telemetry. RESPIRATORY - * Hypoxia: * Likely multifactorial in the postoperative geriatric patient who underwent general anesthesia and is currently bronchospastic on exam today. * Orders placed for DuoNebs, Perforomist, and budesonide. * Will treat the patient with aggressive pulmonary toilet including incentive spirometry in the postoperative phase. * Hopefully will be able to transition patient back to her home inhaler soon. * COPD: * Currently on Advair daily. * Last PFTs obtained in 08/15/2021 demonstrated an FVC of 2.01 L or 74% predicted, FEV1 of 1.63 L or 82% predicted, and ratio of 81%. DLCO significantly reduced at 36% with minimal correction for alveolar ventilation. * Pulmonary nodule: * Patient with 12 mm nodule noted to the LEFT lower lobe which had increased in size from 12/03/2020 to 07/11/2021. The patient had an outpatient PET scan performed which demonstrated a lesion in the LEFT lower lobe with FDG avidity with SUV max 1.5. Patient had apparently refused any intervention at that time, but did agree to follow-up CT in 3 months which had not been performed. * Will follow up discussion with this patient during hospitalization. Currently, she is receiving narcotics and would rather she be of clearer mind when discussing this. GI/NUTRITION - * Progress diet as tolerated. * AHA/DM Diet RENAL/LYTES - * CKD: * No significant electrolyte derangements. * IVF: Can D/C IVF when patient taking PO - * Casanova in place - Strict I&Os. ENDO - * DMII * BSGs per unit protocol. ISS --> gtt per unit policy. HEME - * Stable H&H * Monitor for s/s bleeding s/p vascular procedure. ID - * LLE Ulcerations/dry necrosis: * Currently on Doxy. --Prophylaxis VTE: None GI: Pantoprazole Lines: Peripheral Diet: Cardiorenal Plan: In/out: +1.1 L, urine output 2039 We will DC IV fluids Patient's wheezing and rhonchi have significantly improved. There is drop in her hemoglobin of approximately 3 g. Vascular surgery made aware Patient is still requiring 1 L of oxygen. She might end up with oxygen even at home Continue with incentive spirometry, flutter valve, hypertonic saline and nebulized bronchodilators Patient is hemodynamically stable. Disposition as per vascular surgery Please note the above document was generated using voice recognition software. It may contain grammatical, syntax or spelling errors.Any formal questions or concerns about the content, text or information contained within the body of this dictation should be directly addressed to the provider for clarification. Admission and Anticipated Discharge Date Admission Date: December 17, 2022 Subjective Patient seen and examined at bedside. No acute distress, no adverse events overnight She was more calm compared to yesterday States that the pain is better controlled Denies any nausea or vomiting Did have her breakfast today without any issues Is doing incentive spirometry as well as flutter valve No chest pain, no shortness of breath, no headache, no nausea, no vomiting Review of Systems Review of Systems: All systems reviewed & are unremarkable except as noted in Subjective Physical Exam Physical Exam: Constitutional: No acute distress HEENT: EOMI, PERRLA Respiratory system: Decreased air entry bilaterally, no wheeze, no rhonchi, positive crackles bilateral lower lobes CVS: S1-S2 positive, no murmurs or gallops Abdomen: Soft, nontender, nondistended, positive bowel sounds x4 Extremities: +2 pulses bilaterally radialis/+1 pulse left dorsalis pedis, right BKA no cyanosis, +1 pitting edema left lower extremity, dry necrosis of left third and the fourth toe on the left Neuro: Awake alert oriented x3 Psych: Normal mood and affect G/U: Positive Casanova Skin: no rashes, warm and dry Lymphatic: no cervical or axillary lymphadenopathy Results & Data Results & Data Vital Signs (Past 12 Hours) Vital Signs Temp Pulse Pulse Resp BP Pulse Ox Pulse Ox 12/18/22 07:12 61 18 92 12/18/22 06:03 145/62 H 12/18/22 06:00 60 21 90 12/18/22 05:00 57 L 15 134/58 L 91 12/18/22 04:00 36.9 C 63 18 147/59 H 91 12/18/22 03:00 59 L 19 144/66 H 91 12/18/22 02:00 61 22 141/71 H 93 12/18/22 01:00 64 24 142/59 H 90 12/18/22 00:00 37.3 C 66 20 138/66 91 12/17/22 23:00 68 23 136/63 93 12/17/22 22:00 66 19 143/53 H 91 12/17/22 21:00 70 26 H 130/66 90 12/17/22 20:00 69 25 H 95 12/17/22 23:59 91 12/17/22 23:20 67 12/17/22 20:30 66 12/17/22 20:00 12/17/22 20:24 72 22 93 O2 Del Method O2 Del Method O2 Flow Rate O2 Flow Rate 12/18/22 07:12 Nasal Cannula 2 12/18/22 06:03 12/18/22 06:00 Nasal Cannula 2 12/18/22 05:00 Nasal Cannula 2 12/18/22 04:00 Nasal Cannula 2 12/18/22 03:00 12/18/22 02:00 12/18/22 01:00 12/18/22 00:00 Nasal Cannula 2 12/17/22 23:00 Nasal Cannula 2 12/17/22 22:00 Nasal Cannula 2 12/17/22 21:00 Nasal Cannula 3 12/17/22 20:00 Nasal Cannula 4 12/17/22 23:59 Nasal Cannula 2 12/17/22 23:20 12/17/22 20:30 12/17/22 20:00 Nasal Cannula 3 12/17/22 20:24 Nasal Cannula 3 Laboratory Results 12/18/22 05:36 12/18/22 05:36 Coding Level of Care Code 52286 SUB INP/OBS CARE 3/50MIN Diagnoses S/P femoral-popliteal bypass surgery Z95.828 Atherosclerosis of artery of extremity with rest pain I70.229 Chronic obstructive pulmonary disease J44.9 History of tobacco use Z87.891 Diabetes E11.9 Pulmonary lesion J98.4
[2022-12-18] MEDS: INSULIN ASPART PER UNIT CHARGE SC SCH ×4 (07:59→20:22)
[2022-12-18] MEDS: oxyCODONE HCL IR 5 MG TAB (IMMEDIATE RELEASE) PO PRN ×3 (08:00→22:01)
[2022-12-18] MEDS: DOXYCYCLINE HYCLATE 100 MG CAP PO SCH ×2 (08:03→21:11)
[2022-12-18] MEDS: CEROVITE ADV FORMULA TAB PO SCH ×2 (08:03→21:11)
[2022-12-18] MEDS: ASPIRIN 81 MG ECTAB PO SCH (08:03)
[2022-12-18] MEDS: MELOXICAM 7.5 MG TAB PO SCH (08:03)
[2022-12-18] MEDS: CITALOPRAM 20 MG TAB PO SCH (08:03)
[2022-12-18] MEDS: amLODIPine BESYLATE 5 MG TAB PO SCH (08:03)
[2022-12-18] MEDS: CLOPIDOGREL BISULFATE 75 MG TAB PO SCH (08:03)
[2022-12-18] MEDS: guaiFENesin 600 MG TABCR PO SCH ×2 (08:03→21:11)
[2022-12-18] MEDS: PENTOXIFYLLINE 400MG EXT REL TAB PO SCH ×3 (08:03→17:45)
[2022-12-18] MEDS: FLUTICASONE/VILANTEROL 200/25MCG 14 PUFFS/INHALER INH SCH (08:04)
[2022-12-18] MEDS: PANTOprazole 40 MG TAB PO SCH ×2 (08:04→21:11)
[2022-12-18] MEDS: HYDROCORTISONE 2.5% CR 30 GM TUBE EXT SCH ×2 (08:05→20:23)
[2022-12-18] MEDS: KETOCONAZOLE 2% CR 15 GM TUBE EXT SCH ×2 (08:05→20:23)
[2022-12-18] MEDS ORDERED: Nursing to Pharmacy Communication SCH ×2 (11:45→15:15)
--- NOTE | 2022-12-18 12:25 | Surgery Progress Note ---
Date of Service December 18, 2022 Assessment & Plan (1) S/P femoral-popliteal bypass surgery: Plan: Pt overall doing well post op. Incisional dressings intact, pain controlled with medications. Taking PO well. Pt also seen by Dr Padilla. Will transfer to floor. (2) Atherosclerosis of artery of extremity with rest pain: Plan: now POD #1 after LLE fem-pop insitu BP. doing well Admission and Anticipated Discharge Date Admission Date: December 17, 2022 Subjective 82 yo f POD #1 after LLE fem-pop in situ bypass, seen in f/u today. Pt states her incisional pain was severe last night and she had difficulty sleeping bc of this, but is much better today with the medication. No foot pain. Taking PO well. Review of Systems Review of Systems: All systems reviewed & are unremarkable except as noted in HPI & below Physical Exam Constitutional: WD/WN, vitals as above Respiratory: normal respiratory effort Auscultation: + diminished lung sounds and + wheezes (occasional) Cardiovascular: Rate/Rhythm: regular rate and regular rhythm Vessels: posterior tibial pulses present (LLE dopplerable) and dorsalis pedis pulses present (+1 LLE) Extremities: normal capillary refill (except toes 3, 4, 5) Gastrointestinal (Abdomen): Inspection/Auscultation: abdomen normal to inspection and normal bowel sounds Percussion/Palpation: abdomen soft; abdomen nontender Musculoskeletal: Extremities: + amputation noted (RLE BKA) Skin: no rashes, warm and dry + eschar (toes 3,4,5) and + incision (dressings intact) Neurologic: moves all extremities and awake; no focal motor deficits and not confused Psychiatric: A+Ox3, euthymic affect Results & Data Vital Signs (Past 12 Hours) Vital Signs Temp Pulse Pulse Resp BP Pulse Ox O2 Del Method 12/18/22 11:00 64 21 117/51 L 91 12/18/22 10:00 59 L 20 139/66 88 L 12/18/22 09:00 58 L 19 89 L 12/18/22 08:01 63 26 H 124/61 88 L 12/18/22 07:02 60 22 134/50 L 90 Nasal Cannula 12/18/22 08:00 Nasal Cannula 12/18/22 08:00 62 12/18/22 07:12 61 18 92 Nasal Cannula 12/18/22 06:03 145/62 H 12/18/22 06:00 60 21 90 Nasal Cannula 12/18/22 05:00 57 L 15 134/58 L 91 Nasal Cannula 12/18/22 04:00 36.9 C 63 18 147/59 H 91 Nasal Cannula 12/18/22 03:00 59 L 19 144/66 H 91 12/18/22 02:00 61 22 141/71 H 93 12/18/22 01:00 64 24 142/59 H 90 O2 Flow Rate 12/18/22 11:00 12/18/22 10:00 12/18/22 09:00 12/18/22 08:01 12/18/22 07:02 1 12/18/22 08:00 1 12/18/22 08:00 12/18/22 07:12 2 12/18/22 06:03 12/18/22 06:00 2 12/18/22 05:00 2 12/18/22 04:00 2 12/18/22 03:00 12/18/22 02:00 12/18/22 01:00
[2022-12-18] MEDS: ATORVASTATIN 40 MG TAB PO SCH (21:11)
[2022-12-19] MEDS: ALBUT/IPRATROP 3MG/0.5MG NEB 3 ML VIAL INH SCH ×4 (01:27→19:00)
[2022-12-19] MEDS: BUDESONIDE 0.5 MG/2 ML VIAL (PULMICORT) NEB SCH ×2 (07:21→19:00)
[2022-12-19] MEDS: SODIUM CHLOR 7% 4 ML NEB NEB SCH ×2 (07:21→19:00)
[2022-12-19] MEDS: FORMOTEROL 20 MCG/2 ML VIAL NEB SCH ×2 (07:21→19:00)
[2022-12-19] MEDS: oxyCODONE HCL IR 5 MG TAB (IMMEDIATE RELEASE) PO PRN ×3 (08:07→22:33)
[2022-12-19 09:10] LABS: BUN Creatinine Ratio 19.8 (10-20); Calcium 8.8 mg/dl (8.6-10.3); Creatinine Clr Calc Pharmacy 30.7 ml/min; Est GFR (African American) 46.6 ml/min; Est GFR (Non-African American) 40.2 ml/min; Potassium 4.5 mmol/L (3.5-5.1)
[2022-12-19] MEDS: INSULIN ASPART PER UNIT CHARGE SC SCH ×4 (09:22→20:06)
[2022-12-19] MEDS: KETOCONAZOLE 2% CR 15 GM TUBE EXT SCH ×2 (09:23→20:05)
[2022-12-19] MEDS: PENTOXIFYLLINE 400MG EXT REL TAB PO SCH ×3 (09:23→16:41)
[2022-12-19] MEDS: FLUTICASONE/VILANTEROL 200/25MCG 14 PUFFS/INHALER INH SCH (09:23)
[2022-12-19] MEDS: HYDROCORTISONE 2.5% CR 30 GM TUBE EXT SCH ×2 (09:24→20:05)
[2022-12-19] MEDS: guaiFENesin 600 MG TABCR PO SCH ×2 (09:50→20:09)
[2022-12-19] MEDS: MELOXICAM 7.5 MG TAB PO SCH (09:50)
[2022-12-19] MEDS: PANTOprazole 40 MG TAB PO SCH ×2 (09:50→20:08)
[2022-12-19] MEDS: CLOPIDOGREL BISULFATE 75 MG TAB PO SCH (09:50)
[2022-12-19] MEDS: CITALOPRAM 20 MG TAB PO SCH (09:50)
[2022-12-19] MEDS: amLODIPine BESYLATE 5 MG TAB PO SCH (09:50)
[2022-12-19] MEDS: CEROVITE ADV FORMULA TAB PO SCH ×2 (09:50→20:08)
[2022-12-19] MEDS: DOXYCYCLINE HYCLATE 100 MG CAP PO SCH ×2 (10:48→20:08)
--- NOTE | 2022-12-19 15:12 | Surgery Progress Note ---
Date of Service December 19, 2022 Assessment & Plan (1) S/P femoral-popliteal bypass surgery: Plan: Pt overall doing well post op. Incisional dressings with minimal drainage, pain controlled with oral medications. Doing well May be able to go back to [facility] tomorrow. Admission and Anticipated Discharge Date Admission Date: December 17, 2022 Subjective Patient was up in a chair today. No pain in foot. Incision pain controlled with oral pain meds. Physical Exam Constitutional: WD/WN, vitals as above Respiratory: normal respiratory effort; no respiratory distress Cardiovascular: Rate/Rhythm: regular rate and regular rhythm Vessels: dorsalis pedis pulses present (palpable on left) Extremities: normal capillary refill Skin: + incision (clean and dry with minimal serosanguinous drainage) Neurologic: CN's II-XI intact bilaterally and moves all extremities Psychiatric: Orientation: alert and oriented x 3 Results & Data Vital Signs (Past 12 Hours) Vital Signs Temp Pulse Resp BP Pulse Ox O2 Del Method O2 Flow Rate 12/19/22 07:22 63 18 92 Nasal Cannula 1 12/19/22 07:14 36.8 C 66 16 178/70 H 94 Nasal Cannula 2
[2022-12-19] MEDS: ATORVASTATIN 40 MG TAB PO SCH (20:05)
[2022-12-19] MEDS: ACETAMINOPHEN 325 MG TAB PO PRN (20:50)
[2022-12-20] MEDS: ALBUT/IPRATROP 3MG/0.5MG NEB 3 ML VIAL INH SCH ×4 (01:03→20:03)
[2022-12-20] MEDS ORDERED: oxyCODONE HCL IR 5 MG TAB (IMMEDIATE RELEASE) PO STA (01:22)
[2022-12-20 06:56] LABS: Hematocrit (blood only) 26.9 % (37.0-47.0); Hemoglobin 8.5 g/dl (12.0-16.0)
[2022-12-20] MEDS: FORMOTEROL 20 MCG/2 ML VIAL NEB SCH ×2 (07:53→19:40)
[2022-12-20] MEDS: BUDESONIDE 0.5 MG/2 ML VIAL (PULMICORT) NEB SCH ×2 (07:53→19:40)
[2022-12-20] MEDS: SODIUM CHLOR 7% 4 ML NEB NEB SCH ×2 (07:53→19:40)
[2022-12-20] MEDS: oxyCODONE HCL IR 5 MG TAB (IMMEDIATE RELEASE) PO PRN ×3 (08:48→20:53)
[2022-12-20] MEDS: HYDROCORTISONE 2.5% CR 30 GM TUBE EXT SCH ×2 (08:48→20:48)
[2022-12-20] MEDS: KETOCONAZOLE 2% CR 15 GM TUBE EXT SCH ×2 (08:48→20:48)
[2022-12-20] MEDS: PENTOXIFYLLINE 400MG EXT REL TAB PO SCH ×3 (08:50→17:22)
[2022-12-20] MEDS: amLODIPine BESYLATE 5 MG TAB PO SCH (08:50)
[2022-12-20] MEDS: ASPIRIN 81 MG ECTAB PO SCH (08:50)
[2022-12-20] MEDS: CITALOPRAM 20 MG TAB PO SCH (08:50)
[2022-12-20] MEDS: CLOPIDOGREL BISULFATE 75 MG TAB PO SCH (08:50)
[2022-12-20] MEDS: CEROVITE ADV FORMULA TAB PO SCH ×2 (08:51→20:45)
[2022-12-20] MEDS: MELOXICAM 7.5 MG TAB PO SCH (08:51)
[2022-12-20] MEDS: DOXYCYCLINE HYCLATE 100 MG CAP PO SCH ×2 (08:51→20:45)
[2022-12-20] MEDS: FLUTICASONE/VILANTEROL 200/25MCG 14 PUFFS/INHALER INH SCH (08:51)
[2022-12-20] MEDS: guaiFENesin 600 MG TABCR PO SCH ×2 (08:51→20:45)
[2022-12-20] MEDS: PANTOprazole 40 MG TAB PO SCH ×2 (08:51→20:45)
[2022-12-20] MEDS: INSULIN ASPART PER UNIT CHARGE SC SCH ×4 (08:53→20:54)
--- NOTE | 2022-12-20 10:24 | Surgery Progress Note ---
Date of Service December 20, 2022 Assessment & Plan (1) S/P femoral-popliteal bypass surgery: Plan: Pt overall doing well post op. Can go back to [facility] when bed available Admission and Anticipated Discharge Date Admission Date: December 17, 2022 Subjective Patient with no complaints today. Claims her pain is controlled with pain pills Physical Exam Constitutional: WD/WN, vitals as above Respiratory: normal respiratory effort; no respiratory distress Cardiovascular: Vessels: dorsalis pedis pulses present (palpable on left) Extremities: normal capillary refill Skin: + ulcer (toes of left foot and lateral foot) and + incision (clean and dry with minimal serosanguinous drainage) Psychiatric: Orientation: alert and oriented x 3 Results & Data Vital Signs (Past 12 Hours) Vital Signs Temp Pulse Resp BP Pulse Ox O2 Del Method O2 Flow Rate 12/20/22 08:45 Nasal Cannula 1 12/20/22 07:54 55 L 18 97 Nasal Cannula 2 12/20/22 07:49 36.4 C L 52 L 16 149/72 H 97 Nasal Cannula 1
[2022-12-20] MEDS: ACETAMINOPHEN 325 MG TAB PO PRN (19:33)
[2022-12-20] MEDS: ATORVASTATIN 40 MG TAB PO SCH (20:45)
[2022-12-21] MEDS: ALBUT/IPRATROP 3MG/0.5MG NEB 3 ML VIAL INH SCH ×2 (01:03→07:17)
[2022-12-21] MEDS: oxyCODONE HCL IR 5 MG TAB (IMMEDIATE RELEASE) PO PRN (04:12)
[2022-12-21] MEDS: ACETAMINOPHEN 325 MG TAB PO PRN (04:35)
[2022-12-21] MEDS: FORMOTEROL 20 MCG/2 ML VIAL NEB SCH (07:16)
[2022-12-21] MEDS: SODIUM CHLOR 7% 4 ML NEB NEB SCH (07:16)
[2022-12-21] MEDS: BUDESONIDE 0.5 MG/2 ML VIAL (PULMICORT) NEB SCH (07:16)
[2022-12-21] MEDS: INSULIN ASPART PER UNIT CHARGE SC SCH (09:24)
[2022-12-21] MEDS: PENTOXIFYLLINE 400MG EXT REL TAB PO SCH (09:25)
[2022-12-21] MEDS: FLUTICASONE/VILANTEROL 200/25MCG 14 PUFFS/INHALER INH SCH (09:26)
[2022-12-21] MEDS: KETOCONAZOLE 2% CR 15 GM TUBE EXT SCH (09:26)
[2022-12-21] MEDS: HYDROCORTISONE 2.5% CR 30 GM TUBE EXT SCH (09:26)
[2022-12-21] MEDS: CLOPIDOGREL BISULFATE 75 MG TAB PO SCH (09:28)
[2022-12-21] MEDS: MELOXICAM 7.5 MG TAB PO SCH (09:28)
[2022-12-21] MEDS: DOXYCYCLINE HYCLATE 100 MG CAP PO SCH (09:28)
[2022-12-21] MEDS: amLODIPine BESYLATE 5 MG TAB PO SCH (09:28)
[2022-12-21] MEDS: CEROVITE ADV FORMULA TAB PO SCH (09:29)
[2022-12-21] MEDS: PANTOprazole 40 MG TAB PO SCH (09:29)
[2022-12-21] MEDS: CITALOPRAM 20 MG TAB PO SCH (09:29)
[2022-12-21] MEDS: guaiFENesin 600 MG TABCR PO SCH (09:29)
--- NOTE | 2022-12-23 07:49 | Discharge Summary ---
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 She recently had a stenting of her left ext iliac artery. She presented with worsening ulcerations of her left toes and foot as well as rest pain in the left leg. She is admitted for an attempt at limb salvage bypass. She does not have a useable vein in her left leg. Admission Exam Per Admitting Provider Constitutional: WD/WN, vitals as above Respiratory: normal respiratory effort, lungs clear to auscultation Cardiovascular: RRR, no murmur, no edema Vessels: femoral pulses present; + posterior tibial pulses abnormal and + dorsalis pedis pulses abnormal Extremities: + abnormal capillary refill Gastrointestinal (Abdomen): normal bowel sounds, soft, nontender, no hepatosplenomegaly Musculoskeletal: Extremities: strength 5/5 throughout, + cyanosis and + amputation noted (right lower extremity) Skin: + ulcer (toes of left foot and lateral foot) Neurologic: CN's II-XI intact bilaterally and moves all extremities 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 Discharge Exam Constitutional WD/WN, vitals as above Respiratory normal respiratory effort, lungs clear to auscultation normal respiratory effort; no respiratory distress Cardiovascular RRR, no murmur, no edema Rate/Rhythm: regular rate and regular rhythm Vessels: femoral pulses present and dorsalis pedis pulses present (palpable on left); + posterior tibial pulses abnormal Extremities: normal capillary refill Gastrointestinal (Abdomen) normal bowel sounds, soft, nontender, no hepatosplenomegaly Musculoskeletal Extremities: strength 5/5 throughout, + cyanosis and + amputation noted (right lower extremity) Skin + ulcer (toes of left foot and lateral foot) and + incision (clean and dry with minimal serosanguinous drainage) Neurologic CN's II-XI intact bilaterally and moves all extremities Psychiatric Orientation: alert and oriented x 3 Discharge Data Allergies Allergy/AdvReac Type Severity Reaction Status Date / Time benzoyl peroxide Allergy Severe Rash Verified 12/17/22 06:31 lorazepam [From Ativan] Allergy Mild Flushed, Verified 12/17/22 06:31 elevated BP, skin burning Consultations 12/17/22 13:30 Consult Business Improvement Manager Routine Procedures Performed Operation Date: 12/17/22 08:00 Actual Procedures p Left Femoral Popliteal In-Situ Bypass (Left) - Elliot Padilla MD Ordered Studies 12/17/22 05:00 US - OR guided needle placemen Routine 12/17/22 07:17 EV angio LE LT Routine Hospital Course (1) S/P femoral-popliteal bypass surgery: Pt overall doing well post op. 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 Activity: Per Instructions section Non-emergency contact: Surgeon Call non-emergency contact if: your temperature is above 101.5, your wound has increased redness, your wound has increased drainage and your wound pain has increased Follow-up/Referrals: [facility] [Primary Care Provider] - Diet: Heart Healthy Addtl Attending Provider Instructions: ACTIVITY RECOMMENDATIONS: If drainage from incision, cover with dressing and change daily May wash leg, Do not soak under water SPECIAL CARE INSTRUCTIONS: Call your doctor if: * Temperature above 101 degrees * Pain not relieved by pain medicine ordered * There is increased drainage or redness from any incision * You have any unanswered questions or concerns. Call [phone] to schedule a follow up appointment if one not already scheduled. Pending Studies at Discharge: No Stand-Alone Forms: [facility] Pledge51 Skilled Items Patient informed of condition?: Yes DNR: No Discharge Level of Care: Skilled Communicable Disease: No Discharge Prognosis: Improving Lines: None Urinary Catheter: No Medications and DC Order Prescriptions: Continued hydrocortisone 2.5 % cream 1 applic topical BID Qty: 30 1RF Rx Instructions: Mix with ketoconazole cream and apply BID to under breasts when flaring. Patient can request treatment when flaring. ketoconazole 2 % cream 1 applic topical BID Qty: 30 1RF Rx Instructions: Mix with hydrocortisone cream and apply BID to under breasts when flaring. Patient can request treatment when flaring. PreserVision AREDS-2 250-90-40-1 mg tablet,chewable 1 tab PO BID citalopram 10 mg tablet 20 mg PO DAILY tramadol 100 mg tablet 50 - 100 mg PO Q6H PRN (Reason: Pain) amlodipine 10 mg Tablet 10 mg PO QAM doxycycline monohydrate 100 mg Capsule 100 mg PO BID meloxicam [Mobic] 15 mg tablet 15 mg PO DAILY acetaminophen [Tylenol] 325 mg Tablet 650 mg PO QID PRN (Reason: fever/pain) Preparation H Maximum Strength 0.25-1 % Cream 1 applic MI QID PRN (Reason: Hemorrhoids) atorvastatin 40 mg tablet 40 mg PO HS clopidogrel 75 mg tablet 75 mg PO DAILY aspirin [Elias Low Dose Aspirin] 81 mg tablet,delayed release (DR/EC) 81 mg PO 3XWK pentoxifylline 400 mg Tablet Extended Release 400 mg PO TID Rx Instructions: must administer with a meal/food alum-mag hydroxide-simeth 200-200-20 mg/5 mL Suspension 30 ml PO DIRECTED PRN (Reason: Indigestion) Rx Instructions: administer between meals and at bedtime oxycodone 5 mg Tablet 5 mg PO Q6H PRN (Reason: Pain) fluticasone propion-salmeterol [Advair Diskus] 250-50 mcg/dose Blister With Device 1 inh INHALATION BID Discharge Orders: Discharge Order (Routine); Ordered 12/20/22 Ordered By: Elliot Franco/Other Patient Handouts: Peripheral Artery Bypass Surgery Admission Data Admit Date/Time: 12/17/22 07:42 Attending Provider: Elliot Padilla Admit Provider: Elliot Padilla Primary Care Provider: [facility] Other Providers: [facility] ; Dmitry Grimes ; Titus Lares Seth D. ; Matthieu Carrasco ; Bin Cedillo ; Davide Parish ; Jimy Acosta ; Quincy He ; Nicole Munoz Other Interventions: Discharge Summary Assessment (RN) Last Done: 12/21/22 11:13
--- NOTE | 2023-01-07 11:25 | Operative Report ---
Post Operative Report Pre & Post Diagnosis Operation Date: 12/17/22 08:00 Pre-Op Diagnosis: Left Superficial Artery Occlusion with Gangrenous Foot Ulcer Post-Op Diagnosis: Left Superficial Artery Occlusion with Gangrenous Foot Ulcer I identified the patient and participated in the time-out.: Yes Procedure Operation Date: 12/17/22 08:00 Actual Procedures p Left Femoral Popliteal In-Situ Bypass (Left) - Elliot Padilla MD Surgeon Elliot Padilla MD Batter Mixer Lydia,PAC Estimated Blood Loss 100 Findings Consistent with Post-Op Diagnosis Specimens none Anesthesia Type General Complications none Disposition Accompanied Patient To Recovery: No Disposition: Recovery Room Indications This is a 82-year-old female with gangrenous changes of her toes of her left foot. She was found to have a superficial femoral artery occlusion which cannot be treated endovascularly. Left Rendon pop bypass using vein was recommended. I have discussed the risks options and benefits of the procedure with the patient. The patient understands the risks options and benefits and agrees to the procedure. Description of Procedure The patient was taken to the operating placed spine position. After general anesthesia was accomplished the left lower extreme was prepped and draped in a sterile manner. A timeout was performed and the patient was identified. Longitudinal groin incision was then made. This was carried down to where the femoral artery was identified. It was good caliber soft and usable for proximal anastomosis. The saphenous vein was identified at the saphenofemoral junction. It was of good length that is anastomosed to the common femoral artery distally. We then made a longitudinal incision just below the knee on medial side of the calf. This carried down to where the distal popliteal artery was identified. This artery was soft with good caliber. Saphenous vein was identified at that level. Incision was carried down to the mid calf exposing the saphenous vein. It was of good size to use for an in situ bypass. At that point the patient was heparinized. The common superficial and profundofemoral arteries were clamped. A clamp was placed around the saphenofemoral junction. The saphenous vein was transected from saphenofemoral junction and a bulldog clamp applied to the vein. The saphenofemoral junction was oversewn with a 5-0 Prolene suture. First valve the saphenous vein was then transected under direct vision. The vein was brought over to the femoral artery. A longitudinal arteriotomy was then made. Moderate plaque was seen but a widely patent lumen was noted. Anastomosis then accomplished in the femoral artery and the saphenous vein using at the side fashion with a 5-0 Prolene suture. Clamps and removed. Good flow was seen through the saphenous vein to the first valve. We then used the LeMaitre valve cutters after the vein was divided distally and cut the valves of the saphenous vein. Good flow was seen through the vein at that time. The popliteal artery was then clamped proximal distally. Longitudinal arteriotomy was then made. The saphenous vein was brought down to the popliteal artery leg was extended and the vein transected the appropriate length and beveled. An end-to-side anastomosis was then accomplished between the saphenous vein and the popliteal artery using a 6-0 Prolene suture in the usual vascular fashion. Prior to completing this anastomosis backbleeding and forward bleeding was allowed to occur. The anastomosis then flushed with heparinized saline. The final few sutures were then placed and securely tied. Clamps and removed from the bypass graft in the popliteal artery. Good flow was seen through the graft. Good Doppler signals were heard distally. Using micropuncture technique we punctured the graft through the sidebranch in the groin. An arteriogram was then performed of the bypass. 2 large branches were seen which were ligated. Distal anastomosis was widely patent with good distal flow. After hemostasis was then obtained of the wounds. The micropuncture catheter was removed and the sidebranch ligated. After riding hemostasis was noted the wounds were then closed with a running 3-0 Vicryl suture for the subcutaneous layer of the distal incision and genna for the skin. The proximal femoral incision was closed with a running 2-0 Vicryl suture for the femoral sheath and a 3-0 Vicryl subcutaneous layer. Genna were also used in the groin. Sterile dressings were applied.The patient left the operation room in satisfactory condition and tolerated the procedure well. All needle and sponge counts were correct at the end of the procedure. Emerita Tuttle Pac assisted due to lack of resident availability and was necessary for positioning, draping, retraction, wound closure deep layers, subcutaneous tissue, and skin closure and was necessary for assisting with the case. I attest to the content of the Intraoperative Record and any orders documented therein. Any exceptions are noted below.
== END 2022-12-21 12:47 | DRG 253 ==
LOC: ASU 05:57 → 1E 07:42 → 3W 12-18 16:27

== ENCOUNTER 2023-05-07 00:30 | Inpatient (IN) ==
[2023-05-07] MEDS ORDERED: fentaNYL citrate PF 100 MCG/2 ML VIAL IV STA (00:55)
[2023-05-07 01:22] LABS: Albumin Globulin Ratio 1.2 (0.9-2); Albumin Level 3.3 gm/dl (3.4-5.0); BUN Creatinine Ratio 20.2 (10-20); Bilirubin,Total 0.4 mg/dl (0.2-1.0); Est GFR (African American) 47.5 ml/min; Globulin 2.7 gm/dl (2.5-4.0); Magnesium 2.1 mg/dl (1.7-2.4); Potassium 5.2 mmol/L (3.5-5.1)
[2023-05-07 01:25] LABS: Hematocrit (blood only) 20.4 % (37.0-47.0); Hemoglobin 5.8 g/dl (12.0-16.0); Mean Corpuscular Hemoglobin 19.5 pg (25.0-34.0); Mean Corpuscular Hgb Conc 28.4 g/dL (32.0-36.0); Mean Corpuscular Volume 68.7 fL (80.0-100.0); Mean Platelet Volume 10.7 fL (9.4-12.4); Platelet Count 366 K/uL (130-400); RDW Coefficient of Variation 18.4 % (11.5-14.5); RDW Standard Deviation 44.8 fL (36.4-46.3); Red Blood Count 2.97 M/uL (4.20-5.40)
--- NOTE | 2023-05-07 01:25 | Emergency Department Note ---
Impression & Plan Sepsis, Hypoxia, Anemia, Abnormal vaginal bleeding Admit to the [facility] ED Provider Note NAME: GARRETT PRIETO AGE: 82 SEX: F ARRIVES VIA: Ambulance INFORMANT: Patient and EMS ED PROVIDER(S): Odessa Flores DO CHIEF COMPLAINT: Fever; hypoxia PLAN: Disposition: Admit to the [facility] Condition: Critical MEDICAL DECISION MAKING: This is an 82-year-old female patient who presents to the emergency department from [facility] with fever and hypoxia. The patient has been complaining of nausea since yesterday with questionable constipation. She then developed fever, elevated blood sugar and was noted to have hypoxia. EMS was called and they administered a DuoNeb which seemed to improve her breathing slightly. She complains of significant right leg phantom pain. The patient remained hypoxic and was placed on an oxy mask at 8 L to wean O2 saturations between 88 and 90% here in the ER. Patient was febrile with a white blood cell count of 24,000. She was thought to be septic and given a dose of IV cefepime and bolused with a liter of normal saline solution. Patient was noted to have a hemoglobin of 5.8. She was typed and crossed for 2 units of packed red blood cells. Her CODE STATUS was confirmed as DNR. She was having episodes of hypotension and her nor mal saline bolus was opened up wide. The crystalloid total was kept to 1 L as the patient was about to receive 2 units of packed red blood cells and therefore I did not want to fluid overload her. Patient seems to be having acute blood loss from her vagina. Rectal examination was heme-negative. Other laboratory studies revealed a glucose of 263. Potassium was 5.2. Lactate of 3.1. BUN of 25 and creatinine of 1.24. I discussed the case with the [facility] and they will evaluate for further management. Triage Nursing notes reviewed and agree with with them. Additional history obtained from EMS External medical records reviewed: including previous admission Vital Signs: reviewed and remarkable for tachypnea, hypoxia, and fever Differential diagnosis: Sepsis, pneumonia, CHF, GI bleeding, vaginal bleeding, UTI ER treatment provided: Cardiac monitoring Twelve-lead EKG Supplemental oxygen IV normal saline bolus IV fentanyl. Second IV normal saline bolus IV cefepime 2 units of packed red blood cells transfused Diagnostics interpreted by me: ECG: Normal sinus rhythm at a rate of 69 with an incomplete right bundle branch block. There is no ST segment elevation or signs of ischemia. Cardiac Monitoring: Normal sinus rhythm at a rate of 88 Laboratory studies: See below Imaging studies: As per my independent interpretation Portable chest x-ray: Questionable right middle lobe infiltrate External conversation with providers: I discussed the case with the [facility] Hospitalist as well as the farm manager. HPI: 82/F arrives for evaluation of fever and hypoxia. Patient complains of significant right lower extremity phantom pain and shortness of breath Patient states she had nausea yesterday and her right leg has severe pain. PAST MEDICAL HISTORY:See Below PAST SURGICAL HISTORY:See Below FAMILY HISTORY:See Below SOCIAL HISTORY:See Below HOME MEDICATIONS:See list ALLERGIES:See list VITALS:See Below PHYSICAL EXAMINATION: HEENT: Head - normocephalic and atraumatic. Pupils are equal, round, and reactive to light. Extraocular eye muscles are intact, and sclera are anicteric. Nose - moist nasal mucosa without discharge. Mouth - moist buccal mucosa. Oropharynx is nonerythematous and there is no tonsillar exudate or edema noted. Neck: Supple; no JVD or cervical lymphadenopathy Heart: Regular rate and rhythm. There is a normal S1 and S2 with no murmurs, clicks, or gallops appreciated. Lungs: Clear to auscultation bilaterally with no wheezes, rales, or rhonchi. Abdomen: Soft, completely nontender, nondistended, with good bowel sounds. There are no palpable pulsatile masses or hepatosplenomegaly. There is no guarding, rigidity, or rebound noted. Extremities: No evidence of cyanosis, clubbing, or edema. There are easily palpable peripheral pulses. Skin: Extremely pale, warm and dry with good turgor and no rashes. Genitalia: There is blood coming from the patient's vagina. Rectal: A swab was performed by nursing staff which was Hemoccult negative. ED COURSE: Times/Reassessments: 0035: Patient was evaluated in room C9. A complete history and physical was performed. A septic protocol was performed. Laboratory studies were drawn as above. A twelve-lead EKG was obtained. An order was placed for continuous cardiac monitoring. The patient was in a normal sinus rhythm at a rate of 88. Patient was given a dose of IV fentanyl for her pain. Patient was bolused with 500 cc of normal saline solution. A portable chest x- ray was performed. Patient was given an IV dose of cefepime and another 500 cc bolus of saline as she was hypotensive. Patient was noted to be significantly anemic and was typed and crossed for 2 units of packed red blood cells. I reviewed laboratory studies with the patient and explained that she would require blood transfusion. She was agreeable. I discussed the case with the [facility] Hospitalist and they will evaluate for further management. I did examine the patient's genitalia and it appears that she is having vaginal bleeding as a source of blood loss. I have personally spent greater than 75 minutes of critical care time in the direct management of this patient. This includes bedside care, interpretation of diagnostic studies, and testing, discussion with consultants, patient, and family members, and other required patient management activities. This 75 minutes is in excess of all separately billable procedures. Odessa Flores DO Past Med/Surg History Medical History Altered mental status Carotid stenosis, asymptomatic s/p Left carotid endarterectomy (7 years ago) 70-79% Left CEA with fibrofatty plaque and 70-79% restenosis per 10/2022 carotid duplex Chronic obstructive pulmonary disease CKD (chronic kidney disease) Diabetes Dysphagia Metabolic encephalopathy Hx [facility] resident Osteomyelitis Hx PAD (peripheral artery disease) PVD (peripheral vascular disease) Solitary pulmonary nodule Surgical History History of carotid endarterectomy Left carotid endarterectomy (7 years ago) History of cataract surgery R/L Right (10/28/22): [place] at [facility] [place] Hx of angiography B/L LE angiogram 09/13/22 [place] Angiogram with stent left external iliac artery Hx of right BKA Social History Smoking Status: Former smoker Tobacco Type: Cigarettes Do You Dip or Chew Tobacco: No; Hx Alcohol Use: No Hx Substance Use: No Preferred Language: Vietnamese Communication Ability: Effective Legal Entity Controller Required: No Beliefs That Will Affect Care: None marital status: / Current Living Situation: Personal Care Facility How many Children do You have: 2 Feels Safe at Home: Yes Assistive Devices: Wheelchair Allergies Allergies Allergy/AdvReac Type Severity Reaction Status Date / Time benzoyl peroxide Allergy Severe Rash Verified 12/17/22 06:31 lorazepam [From Ativan] Allergy Mild Flushed, Verified 12/17/22 06:31 elevated BP, skin burning Home Meds Home Medications Medication Instructions Recorded Confirmed acetaminophen 325 mg tablet 650 mg PO Q6 PRN fever/pain 08/29/21 05/07/23 (Tylenol) aspirin 81 mg tablet,delayed 81 mg PO 3XWK 08/29/21 05/07/23 release (Elias Low Dose Aspirin) atorvastatin 40 mg tablet 40 mg PO QPM 08/29/21 05/07/23 clopidogrel 75 mg tablet 75 mg PO DAILY 08/29/21 05/07/23 phenylephrine 0.25 %-pramoxine 1 1 applic MT Q6 PRN Hemorrhoids 08/29/21 05/07/23 %-glycerin-wh.petrolatum rectal cream (Preparation H Maximum Strength) vit C 250 mg-E 90 mg-zinc 40 1 tab PO BID 06/20/22 05/07/23 mg-copper 1 qn-pbujtk-zvpyjh chew tablet (PreserVision AREDS-2) citalopram 10 mg tablet 20 mg PO DAILY 08/01/22 05/07/23 amlodipine 10 mg tablet 10 mg PO QAM 10/21/22 05/07/23 oxycodone 5 mg tablet 5 mg PO Q6H PRN Pain 11/25/22 05/07/23 pentoxifylline 400 mg 400 mg PO TID 11/25/22 05/07/23 tablet,extended release Abh Gel 1 applic topical AMHS 05/07/23 05/07/23 aluminum-mag hydroxide-simethicone 30 ml PO Q6 PRN Indigestion 05/07/23 05/07/23 400 mg-400 mg-40 mg/5 mL oral susp (Maalox Maximum Strength) dextran 70-hypromellose eye drops 1 drp ophthalmic (eye) Q4 PRN mild 05/07/23 05/07/23 in a dropperette (Artificial Tears dry eye (PF) drops in a dropperette) guaifenesin 600 mg tablet, 600 mg PO Q12H PRN mucous 05/07/23 05/07/23 extended release 12 hr ipratropium 20 mcg-albuterol 100 1 puff inhalation Q6H PRN 05/07/23 05/07/23 mcg/actuation mist for inhalation SOB/WHEEZE (Combivent Respimat) ketoconazole 2 % topical cream 1 applic topical BID PRN flares 05/07/23 05/07/23 ondansetron HCl 4 mg tablet 4 mg PO Q6H PRN nausea/vomiting 05/07/23 05/07/23 povidone-iodine 10 % topical 1 applic topical .EVERY EVENING 05/07/23 05/07/23 solution (Betadine) SHIFT sennosides 8.6 mg-docusate sodium 1 tab-cap PO AMHS 05/07/23 05/07/23 50 mg tablet (Senokot-S) tramadol 50 mg tablet 100 mg PO Q6H PRN pain 5-8 05/07/23 05/07/23 Results & Data (ED) Vital Signs Vital Signs - 24 hr 05/07/23 00:40 05/07/23 00:46 05/07/23 00:47 Temperature 37.7 C H Temperature Source Oral Pulse Rate 73 Pulse Rate from SpO2 Sensor Respiratory Rate 24 Respiratory Effort / Characteristics Non-Labored Blood Pressure 114/49 L Blood Pressure Mean 70 Pulse Oximetry 79 L 79 L 95 Oxygen Delivery Method Room Air Nasal Cannula Nasal Cannula Oxygen Flow Rate 0 6 Sepsis Recent Fever Within 48 Hours Yes Sepsis New/Unexplained Change in Mental Status N/A Sepsis Action Taken by Nursing No Action Required Oxygen Flow Rate - Titration 6 Pulse Oximetry Post Tiitration 05/07/23 01:17 05/07/23 01:00 05/07/23 00:37 Temperature Temperature Source Pulse Rate 88 69 Pulse Rate from SpO2 Sensor 88 Respiratory Rate 31 H Respiratory Effort / Characteristics Blood Pressure 114/56 L Blood Pressure Mean 75 Pulse Oximetry 88 L 89 L Oxygen Delivery Method Nasal Cannula Oxymask Oxygen Flow Rate 6 Sepsis Recent Fever Within 48 Hours Sepsis New/Unexplained Change in Mental Status Sepsis Action Taken by Nursing Oxygen Flow Rate - Titration 8 Pulse Oximetry Post Tiitration 05/07/23 03:45 05/07/23 01:08 05/07/23 01:10 Temperature 37.2 C Temperature Source Oral Pulse Rate 79 84 79 Pulse Rate from SpO2 Sensor 84 80 Respiratory Rate 30 H 23 19 Respiratory Effort / Characteristics Blood Pressure 130/81 110/57 L Blood Pressure Mean 97 74 Pulse Oximetry 91 89 L 90 Oxygen Delivery Method Oxygen Flow Rate 8 Sepsis Recent Fever Within 48 Hours Sepsis New/Unexplained Change in Mental Status Sepsis Action Taken by Nursing Oxygen Flow Rate - Titration Pulse Oximetry Post Tiitration 05/07/23 01:15 05/07/23 01:20 05/07/23 01:30 Temperature Temperature Source Pulse Rate 78 76 76 Pulse Rate from SpO2 Sensor 78 76 76 Respiratory Rate 26 H 31 H 21 Respiratory Effort / Characteristics Blood Pressure 112/64 109/51 L Blood Pressure Mean 80 70 Pulse Oximetry 89 L 91 90 Oxygen Delivery Method Oxygen Flow Rate Sepsis Recent Fever Within 48 Hours Sepsis New/Unexplained Change in Mental Status Sepsis Action Taken by Nursing Oxygen Flow Rate - Titration Pulse Oximetry Post Tiitration 05/07/23 01:40 05/07/23 01:45 05/07/23 02:00 Temperature Temperature Source Pulse Rate 79 77 Pulse Rate from SpO2 Sensor 79 77 77 Respiratory Rate 26 H 22 Respiratory Effort / Characteristics Blood Pressure 120/80 118/57 L Blood Pressure Mean 93 77 Pulse Oximetry 91 89 L 90 Oxygen Delivery Method Oxygen Flow Rate Sepsis Recent Fever Within 48 Hours Sepsis New/Unexplained Change in Mental Status Sepsis Action Taken by Nursing Oxygen Flow Rate - Titration Pulse Oximetry Post Tiitration 05/07/23 02:10 05/07/23 02:16 05/07/23 02:20 Temperature Temperature Source Pulse Rate 80 78 76 Pulse Rate from SpO2 Sensor 80 78 76 Respiratory Rate 29 H 26 H 23 Respiratory Effort / Characteristics Blood Pressure 117/50 L Blood Pressure Mean 72 Pulse Oximetry 94 91 97 Oxygen Delivery Method Oxygen Flow Rate Sepsis Recent Fever Within 48 Hours Sepsis New/Unexplained Change in Mental Status Sepsis Action Taken by Nursing Oxygen Flow Rate - Titration Pulse Oximetry Post Tiitration 05/07/23 02:30 05/07/23 02:31 05/07/23 02:35 Temperature Temperature Source Pulse Rate 80 71 68 Pulse Rate from SpO2 Sensor 81 73 68 Respiratory Rate 24 20 24 Respiratory Effort / Characteristics Blood Pressure 72/43 L 79/39 L 107/49 L Blood Pressure Mean 52 52 68 Pulse Oximetry 94 91 95 Oxygen Delivery Method Oxygen Flow Rate Sepsis Recent Fever Within 48 Hours Sepsis New/Unexplained Change in Mental Status Sepsis Action Taken by Nursing Oxygen Flow Rate - Titration Pulse Oximetry Post Tiitration 05/07/23 02:40 05/07/23 02:45 05/07/23 02:50 Temperature Temperature Source Pulse Rate 66 64 70 Pulse Rate from SpO2 Sensor 67 70 Respiratory Rate 25 H 21 26 H Respiratory Effort / Characteristics Blood Pressure 105/43 L Blood Pressure Mean 63 Pulse Oximetry 93 90 90 Oxygen Delivery Method Oxygen Flow Rate Sepsis Recent Fever Within 48 Hours Sepsis New/Unexplained Change in Mental Status Sepsis Action Taken by Nursing Oxygen Flow Rate - Titration Pulse Oximetry Post Tiitration 05/07/23 03:00 05/07/23 03:10 05/07/23 03:15 Temperature Temperature Source Pulse Rate 69 69 68 Pulse Rate from SpO2 Sensor 69 69 69 Respiratory Rate 27 H 27 H 24 Respiratory Effort / Characteristics Blood Pressure 110/48 L 118/53 L Blood Pressure Mean 68 74 Pulse Oximetry 93 93 94 Oxygen Delivery Method Oxygen Flow Rate Sepsis Recent Fever Within 48 Hours Sepsis New/Unexplained Change in Mental Status Sepsis Action Taken by Nursing Oxygen Flow Rate - Titration Pulse Oximetry Post Tiitration 05/07/23 03:20 05/07/23 03:30 05/07/23 03:40 Temperature Temperature Source Pulse Rate 70 76 77 Pulse Rate from SpO2 Sensor 70 76 81 Respiratory Rate 23 24 20 Respiratory Effort / Characteristics Blood Pressure 117/63 Blood Pressure Mean 81 Pulse Oximetry 94 90 90 Oxygen Delivery Method Oxygen Flow Rate Sepsis Recent Fever Within 48 Hours Sepsis New/Unexplained Change in Mental Status Sepsis Action Taken by Nursing Oxygen Flow Rate - Titration Pulse Oximetry Post Tiitration 05/07/23 03:45 05/07/23 03:50 05/07/23 04:01 Temperature 37.7 C H Temperature Source Axillary Pulse Rate 79 79 83 Pulse Rate from SpO2 Sensor 79 79 Respiratory Rate 30 H 33 H 16 Respiratory Effort / Characteristics Blood Pressure 130/81 109/57 L Blood Pressure Mean 97 74 Pulse Oximetry 90 90 90 Oxygen Delivery Method Oxygen Flow Rate Sepsis Recent Fever Within 48 Hours Sepsis New/Unexplained Change in Mental Status Sepsis Action Taken by Nursing Oxygen Flow Rate - Titration Pulse Oximetry Post Tiitration Laboratory Data 05/07/23 00:50 05/07/23 00:50 Lab Results 05/07/23 05/07/23 05/07/23 Range/Units 00:50 00:50 00:50 WBC 24.00 H (4.8-10.8) K/ul RBC 2.97 L (4.20-5.40) M/uL Hgb 5.8 L* (12.0-16.0) g/dl Hct 20.4 L* (37.0-47.0) % MCV 68.7 L (80.0-100.0) fL MCH 19.5 L (25.0-34.0) pg MCHC 28.4 L (32.0-36.0) g/dL RDW Std Deviation 44.8 (36.4-46.3) fL RDW Coeff of Isiah 18.4 H (11.5-14.5) % Plt Count 366 (130-400) K/uL MPV 10.7 (9.4-12.4) fL Immature Gran % (Auto) 0.8 % Neut % (Auto) 91.1 % Lymph % (Auto) 2.4 % [place] % (Auto) 5.5 % Eos % (Auto) 0.1 % Baso % (Auto) 0.1 % Neut # (Auto) 21.86 H (1.40-6.50) K/uL Lymph # (Auto) 0.58 L (1.20-3.40) K/uL [place] # (Auto) 1.31 H (0.11-0.59) K/uL Eos # (Auto) 0.03 (0.00-0.50) K/uL Baso # (Auto) 0.03 (0.00-0.20) K/uL Immature Gran # (Auto) 0.19 (0.01-0.20) K/uL Polychromasia 2+ Hypochromasia Present Microcytosis Present Tear Drop Cells 1+ Ovalocytes 1+ Sodium 136 (136-145) mmol/L Potassium 5.2 H (3.5-5.1) mmol/L Chloride 107 (98-107) mmol/L Carbon Dioxide 24 (21-32) mmol/L Anion Gap 5 (3-11) BUN 25 H (6-23) mg/dl Creatinine 1.24 H (0.6-1.2) mg/dl Est Cr Clr Drug Dosing 30.0 ml/min Est GFR ( Amer) 47.5 ml/min Est GFR (Non-Af Amer) 41.0 ml/min BUN/Creatinine Ratio 20.2 H (10-20) Glucose 263 H (70-99(Fasting)) mg/dl Lactate (0.4-2.0) mmol/L Calcium 9.0 (8.6-10.3) mg/dl Magnesium 2.1 (1.7-2.4) mg/dl Total Bilirubin 0.4 (0.2-1.0) mg/dl AST 9 L (13-39) U/L ALT 5 L (7-52) U/L Alkaline Phosphatase 103 (34-104) U/L Troponin I High Sens 47.1 H (0-14) pg/ml B-Natriuretic Peptide (0-100) pg/ml Total Protein 6.0 (6.0-8.3) gm/dl Albumin 3.3 L (3.4-5.0) gm/dl Globulin 2.7 (2.5-4.0) gm/dl Albumin/Globulin Ratio 1.2 (0.9-2) Procalcitonin 0.27 (0-0.5) ng/ml Blood Type Antibody Screen Crossmatch 05/07/23 05/07/23 05/07/23 Range/Units 00:50 01:06 01:56 WBC (4.8-10.8) K/ul RBC (4.20-5.40) M/uL Hgb (12.0-16.0) g/dl Hct (37.0-47.0) % MCV (80.0-100.0) fL MCH (25.0-34.0) pg MCHC (32.0-36.0) g/dL RDW Std Deviation (36.4-46.3) fL RDW Coeff of Isiah (11.5-14.5) % Plt Count (130-400) K/uL MPV (9.4-12.4) fL Immature Gran % (Auto) % Neut % (Auto) % Lymph % (Auto) % [place] % (Auto) % Eos % (Auto) % Baso % (Auto) % Neut # (Auto) (1.40-6.50) K/uL Lymph # (Auto) (1.20-3.40) K/uL [place] # (Auto) (0.11-0.59) K/uL Eos # (Auto) (0.00-0.50) K/uL Baso # (Auto) (0.00-0.20) K/uL Immature Gran # (Auto) (0.01-0.20) K/uL Polychromasia Hypochromasia Microcytosis Tear Drop Cells Ovalocytes Sodium (136-145) mmol/L Potassium (3.5-5.1) mmol/L Chloride (98-107) mmol/L Carbon Dioxide (21-32) mmol/L Anion Gap (3-11) BUN (6-23) mg/dl Creatinine (0.6-1.2) mg/dl Est Cr Clr Drug Dosing ml/min Est GFR ( Amer) ml/min Est GFR (Non-Af Amer) ml/min BUN/Creatinine Ratio (10-20) Glucose (70-99(Fasting)) mg/dl Lactate 3.1 H* (0.4-2.0) mmol/L Calcium (8.6-10.3) mg/dl Magnesium (1.7-2.4) mg/dl Total Bilirubin (0.2-1.0) mg/dl AST (13-39) U/L ALT (7-52) U/L Alkaline Phosphatase (34-104) U/L Troponin I High Sens (0-14) pg/ml B-Natriuretic Peptide 219 H (0-100) pg/ml Total Protein (6.0-8.3) gm/dl Albumin (3.4-5.0) gm/dl Globulin (2.5-4.0) gm/dl Albumin/Globulin Ratio (0.9-2) Procalcitonin (0-0.5) ng/ml Blood Type B Positive Antibody Screen NEGATIVE Crossmatch See Detail 05/07/23 Range/Units 02:44 WBC (4.8-10.8) K/ul RBC (4.20-5.40) M/uL Hgb (12.0-16.0) g/dl Hct (37.0-47.0) % MCV (80.0-100.0) fL MCH (25.0-34.0) pg MCHC (32.0-36.0) g/dL RDW Std Deviation (36.4-46.3) fL RDW Coeff of Isiah (11.5-14.5) % Plt Count (130-400) K/uL MPV (9.4-12.4) fL Immature Gran % (Auto) % Neut % (Auto) % Lymph % (Auto) % [place] % (Auto) % Eos % (Auto) % Baso % (Auto) % Neut # (Auto) (1.40-6.50) K/uL Lymph # (Auto) (1.20-3.40) K/uL [place] # (Auto) (0.11-0.59) K/uL Eos # (Auto) (0.00-0.50) K/uL Baso # (Auto) (0.00-0.20) K/uL Immature Gran # (Auto) (0.01-0.20) K/uL Polychromasia Hypochromasia Microcytosis Tear Drop Cells Ovalocytes Sodium (136-145) mmol/L Potassium (3.5-5.1) mmol/L Chloride (98-107) mmol/L Carbon Dioxide (21-32) mmol/L Anion Gap (3-11) BUN (6-23) mg/dl Creatinine (0.6-1.2) mg/dl Est Cr Clr Drug Dosing ml/min Est GFR ( Amer) ml/min Est GFR (Non-Af Amer) ml/min BUN/Creatinine Ratio (10-20) Glucose (70-99(Fasting)) mg/dl Lactate 2.2 H* (0.4-2.0) mmol/L Calcium (8.6-10.3) mg/dl Magnesium (1.7-2.4) mg/dl Total Bilirubin (0.2-1.0) mg/dl AST (13-39) U/L ALT (7-52) U/L Alkaline Phosphatase (34-104) U/L Troponin I High Sens (0-14) pg/ml B-Natriuretic Peptide (0-100) pg/ml Total Protein (6.0-8.3) gm/dl Albumin (3.4-5.0) gm/dl Globulin (2.5-4.0) gm/dl Albumin/Globulin Ratio (0.9-2) Procalcitonin (0-0.5) ng/ml Blood Type Antibody Screen Crossmatch Administered Medications Discontinued Medications Fentanyl Citrate (Fentanyl Citrate Pf 100 Mcg/2 Ml Vial) 50 mcg IV NOW STA Stop: 05/07/23 00:56 Last Admin: 05/07/23 01:05 Dose: 50 mcg Documented By: MARNI Sodium Chloride (Nss) 500 mls @ 999 mls/hr IV .Q31M ONE Stop: 05/07/23 01:58 Last Infusion: 05/07/23 02:57 Dose: 0 mls/hr Documented By: Admin: 05/07/23 01:57 Dose: 999 mls/hr Documented By: MARNI Cefepime HCl (Maxipime) 2,000 mg in 20 mls @ 5 mls/min IV NOW STA; Protocol Stop: 05/07/23 01:48 Last Admin: 05/07/23 01:57 Dose: 5 mls/min Documented By: MARNI Desmopressin Acetate 25 mcg/ (Sodium Chloride) 56.25 mls @ 100 mls/hr IV NOW ON E Stop: 05/07/23 03:26 Last Infusion: 05/07/23 03:58 Dose: 0 mls/hr Documented By: Admin: 05/07/23 03:20 Dose: 100 mls/hr Documented By: MARNI Discharge Plan Visit Data Chief Complaint: Shortness of Breath/Dyspnea ED Provider: Odessa Flores Discharge Problem: Sepsis, Hypoxia, Anemia, Abnormal vaginal bleeding Forms Stand Alone Forms: [facility] Prescriptions Prescriptions: No Action PreserVision AREDS-2 250-90-40-1 mg tablet,chewable 1 tab PO BID citalopram 10 mg tablet 20 mg PO DAILY amlodipine 10 mg Tablet 10 mg PO QAM acetaminophen [Tylenol] 325 mg Tablet 650 mg PO Q6 PRN (Reason: fever/pain) Preparation H Maximum Strength 0.25-1 % Cream 1 applic MT Q6 PRN (Reason: Hemorrhoids) atorvastatin 40 mg tablet 40 mg PO QPM clopidogrel 75 mg tablet 75 mg PO DAILY aspirin [Elias Low Dose Aspirin] 81 mg tablet,delayed release (DR/EC) 81 mg PO 3XWK Rx Instructions: mon,wed,fri pentoxifylline 400 mg Tablet Extended Release 400 mg PO TID Rx Instructions: must administer with a meal/food oxycodone 5 mg Tablet 5 mg PO Q6H PRN (Reason: Pain) sennosides-docusate sodium [Senokot-S] 8.6-50 mg Tablet 1 tab-cap PO AMHS tramadol 50 mg Tablet 100 mg PO Q6H PRN (Reason: pain 5-8) ondansetron HCl [Zofran] 4 mg Tablet 4 mg PO Q6H PRN (Reason: nausea/vomiting) Combivent Respimat 20-100 mcg/actuation Mist 1 puff INHALATION Q6H PRN (Reason: SOB/WHEEZE) guaifenesin 600 mg Tablet Extended Release 12hr 600 mg PO Q12H PRN (Reason: mucous) alum-mag hydroxide-simeth [Maalox Maximum Strength] 400-400-40 mg/5 mL Suspension 30 ml PO Q6 PRN (Reason: Indigestion) Abh Gel 1 applic topical AMHS Rx Instructions: used for agitation povidone-iodine [Betadine] 10 % Solution 1 applic TOPICAL .EVERY EVENING SHIFT Rx Instructions: apply to left foot scabbed areas Artificial Tears (PF) Dropperette 1 drp OPHTHALMIC (EYE) Q4 PRN (Reason: mild dry eye) ketoconazole 2 % Cream 1 applic TOPICAL BID PRN (Reason: flares) Rx Instructions: apply to under breasts every 12 hours as needed for intertrigo. mix with Occidental-cortisone 2.5% cream and aply under breast for flares Referrals Referrals: PCP,NO [Physician] -
[2023-05-07 01:27] LABS: Troponin I High Sensitivity 47.1 pg/ml (0-14)
[2023-05-07] MEDS ORDERED: SODIUM CHLORIDE 0.9% 500 ML IV ONE (01:28)
[2023-05-07 01:30] LABS: Basophils # (auto) 0.03 K/uL (0.00-0.20); Basophils % (auto) 0.1 %; Eosinophils # (auto) 0.03 K/uL (0.00-0.50); Eosinophils % (auto) 0.1 %; Hypochromasia Present; Immature Granulocytes # (auto) 0.19 K/uL (0.01-0.20); Immature Granulocytes % (auto) 0.8 %; Lymphocytes # (auto) 0.58 K/uL (1.20-3.40); Lymphocytes % (auto) 2.4 %; Microcytosis Present; Monocytes # (auto) 1.31 K/uL (0.11-0.59); Monocytes % (auto) 5.5 %; Neutrophils # (auto) 21.86 K/uL (1.40-6.50); Neutrophils % (auto) 91.1 %; Ovalocytes 1+; Polychromasia 2+; Tear Drop Cells 1+
[2023-05-07] MEDS ORDERED: SODIUM CHLORIDE 0.9% 250 ML IV PRN (01:42)
[2023-05-07] MEDS ORDERED: CEFEPIME 2,000 MG/20 ML VIAL IV STA (01:45)
[2023-05-07] MEDS ORDERED: DESMOPRESSIN ACETATE 25 MCG in SODIUM CHLORIDE 0.9% 50 ML IV ONE (02:53)
[2023-05-07] MEDS ORDERED: fentaNYL citrate PF 100 MCG/2 ML VIAL IV PRN (03:53)
[2023-05-07] MEDS ORDERED: ALBUT/IPRATROP 3MG/0.5MG NEB 3 ML VIAL NEB STA (04:37)
[2023-05-07] MEDS ORDERED: LACTATED RINGER'S 500 ML IV ONE (04:38)
[2023-05-07 05:39] LABS: Appearance Urine Clear (Clear); Bacteria Urine Automated Negative (Negative); Bilirubin Urine Negative (Negative); Blood Urine 2+ (Negative); Color Urine Yellow; Epithelial Cell Urine Auto >30 /lpf (0-5); Glucose Urine UA Negative (Negative); Ketones Urine Negative (Negative); Leukocyte Esterase Urine 2+ (Negative); Nitrite Urine Negative (Negative); Protein Urine Negative (Negative); Specific Gravity Urine 1.016 (1.000-1.030); Urobilinogen Urine Negative (Negative); WBC Urine Automated >30 /hpf (0-5); pH Urine 5.5 (4.5-7.5)
[2023-05-07] MEDS ORDERED: ALUMINUM/MAGNESIUM/SIMETH (MAALOX MAX) 30 ML UDC PO PRN (05:44)
[2023-05-07] MEDS ORDERED: ONDANSETRON INJ 2 MG/ML 2 ML VIAL IV PRN (05:44)
[2023-05-07] MEDS ORDERED: guaiFENesin 600 MG TABCR PO PRN (05:44)
[2023-05-07] MEDS ORDERED: HYDROmorphone INJ 0.5 MG/0.5 ML SYR IV PRN (05:44)
[2023-05-07 05:49] LABS: Hematocrit (blood only) 20.8 % (37.0-47.0); Hemoglobin 6.1 g/dl (12.0-16.0); Mean Corpuscular Hemoglobin 21.2 pg (25.0-34.0); Mean Corpuscular Hgb Conc 29.3 g/dL (32.0-36.0); Mean Corpuscular Volume 72.2 fL (80.0-100.0); Mean Platelet Volume 10.3 fL (9.4-12.4); Nucleated RBC # (auto) 0.03 K/uL (0.00-0.12); Nucleated RBC % (auto) 0.1 %; Platelet Count 305 K/uL (130-400); RDW Coefficient of Variation 20.4 % (11.5-14.5); RDW Standard Deviation 52.2 fL (36.4-46.3); Red Blood Count 2.88 M/uL (4.20-5.40); White Blood Count 28.24 K/ul (4.8-10.8)
[2023-05-07 05:51] LABS: BUN Creatinine Ratio 20.6 (10-20); Calcium 8.3 mg/dl (8.6-10.3); Creatinine Clr Calc Pharmacy 28.4 ml/min; Est GFR (African American) 44.5 ml/min; Est GFR (Non-African American) 38.4 ml/min; Potassium 5.5 mmol/L (3.5-5.1)
--- NOTE | 2023-05-07 05:53 | History & Physical Report ---
Date of Service May 07, 2023 Assessment & Plan (1) Acute and chronic respiratory failure: Plan: Patient is an 82-year-old female with a past medical history of right LISA due to PAD, nicotine dependence, COPD, DM 2, htn and carotid stenosis who presents to the hospital for evaluation of hypoxia. Work-up thus far has revealed blood loss anemia secondary to abnormal vaginal bleeding and severe sepsis likely due to urinary tract infection. Patient will be admitted to the progressive care unit for fluid resuscitation, blood transfusion, and antibiotic therapy. -Admit to PCU, telemetry indication being severe sepsis -Acute hypoxemic respiratory failure on top of chronic COPD -Currently on high flow nasal cannula now at goal saturation, goal saturation of 88 to 92%. -Do not feel it is a COPD exacerbation but rather acute anemia on top of chronic lung disease resulting in hypoxia -We will add every 4 hour DuoNeb scheduled but will hold off azithromycin and prednisone, if pulmonary status were to decline, consider treating for COPD exacerbation -Chest x-ray showing no evidence of pneumonia at this time, persistence of right elevated hemidiaphragm and left lung nodule. (2) Severe sepsis: Plan: -SIRS criteria of leukocytosis, hypotension, and end-organ damage plus likely urinary source making criteria for severe sepsis -Urinalysis positive for leukocyte esterase, blood, and white blood cells. Start cefepime in the ED, continue every 8 hours -Blood cultures and urine cultures collected -Casanova catheter placed for accurate I's and O's -Fluid bolused in the ED, originally hypotensive but improved to normotensive (3) UTI (urinary tract infection): Plan: - As above (4) Acute blood loss anemia: Plan: -Likely secondary to vaginal bleeding in the setting of aspirin and Plavix use -Initial hemoglobin in ED was 5.8 -Ordered 2 units of blood in the ED, currently transfusing -H&H every 6 hours for recheck -Transfusion threshold of 7 (5) Iron deficiency: Plan: -previously noted low total iron and ferritin -in addition to blood products above, added venofer infusions, 200mg daily x5 days (6) Chronic obstructive pulmonary disease: Plan: -[id number] smoker and continues to smoke -Nicotine patch applied -Typically takes Combivent as needed but does not have any maintenance inhalers per my chart review -For now make DuoNeb scheduled every every 4 hour, consider adding maintenance inhalers (7) Diabetes: Plan: -Not on any medications at home -Diet controlled -Typically would order A1c but given acute anemia with transfusion, this will be inaccurate (8) Chronic pain: Plan: - 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 -Seems to be exacerbated in the ED, switch pain medication to 0.25 mg of Dilaudid for moderate pain, 0.5 mg for severe pain -If pain improves return back to home regimen of tramadol and oxycodone (9) Abnormal vaginal bleeding: Plan: - Transvaginal ultrasound ordered -Consult gynecology, appreciate recommendations -Given longstanding smoking history, higher risk for bladder/uterine cancer (10) PAD (peripheral artery disease): Plan: -Hold aspirin and Plavix in the setting of active bleed -Hold pentoxifylline (11) Hx of right BKA: Plan: - Secondary to PAD as above (12) Hypertension: Plan: - Hold amlodipine given soft blood pressures in emergency department Plan Disposition: Admit to PCU for severe sepsis DVT prophylaxis: Contraindicated in active bleed Diet: Heart healthy with low-sodium CODE STATUS: DNR/DNI as discussed with patient. Admission and Anticipated Discharge Date Admission Date: May 07, 2023 History of Present Illness Chief Complaint: Hypoxia Primary Care Provider: [facility] Patient is an 82-year-old female with a past medical history of right LISA due to PAD, nicotine dependence, COPD, DM 2, htn and carotid stenosis who presents to the hospital for evaluation of hypoxia. Unfortunately at the time of my interview, the patient was in quite a bit of pain and unwilling to answer the majority of my questions. The majority of the history and physical was obtained from ED provider note and calling son on the phone. I have no patient has had a 48-hour history of complaining of nausea, constipation, and shortness of breath beyond baseline. It seems that she had developed fever, elevated blood sugar, and hypoxia with her pulse ox reading in the 70s. For this reason EMS was called. When they had arrived they provided a DuoNeb treatment which seemed to improve her breathing slightly. She was then brought to the emergency department and she was then placed on oxy mask which improved her O2 saturations into the 88-90 percent range. When talking to the patient she is at least able to tell me where she is and her situation. She states that she is in a lot of pain. She has a LISA due to PAD on the right secondary to smoking for more than 50 years. She states that she is having phantom limb pain there as well as back pain. She is inconsolable and will not answer my questions and asking for pain medication. When talking to the son over the phone, it seems the patient has had bleeding issues regarding her genitals for the past several weeks which center care was intending to start a work-up on him but does not seem that this was completed or started. It seems that they felt that her bleeding was more from her urethra but the ED provider felt that it was more from the patient's vagina. The patient herself is unable to tell me how long this has been going on. Patient has a [id number] smoking history and continues to smoke at least every other day per the son's history when she goes to the grocery store. Otherwise no new or meaningful HPI gathered at this time. ED course: Patient evaluated by provider in room. Labs are significant for an elevated white blood cell count of 24, hemoglobin of 5.8, potassium of 5.2, creatinine of 1.3, a lactate of 3.1 with a repeat of 2.2 after fluids, high- sensitivity troponin of 47 with a repeat of 37, BNP of 219, and negative procalcitonin, urinalysis positive for 2+ blood, 2+ leukocyte esterase, greater than 30 white blood cells. Chest x-ray shows persistent right elevated hemidiaphragm but with no acute pathology is noted per my interpretation. Blood cultures and urine culture taken. A bolus of normal saline was given. Cefepime and fentanyl were given. Allergies Allergy/AdvReac Type Severity Reaction Status Date / Time benzoyl peroxide Allergy Severe Rash Verified 12/17/22 06:31 lorazepam [From Ativan] Allergy Mild Flushed, Verified 12/17/22 06:31 elevated BP, skin burning Home Medications Medication Instructions Recorded Confirmed Type acetaminophen 325 mg tablet 650 mg PO Q6 PRN fever/pain 08/29/21 05/07/23 History (Tylenol) aspirin 81 mg tablet,delayed 81 mg PO 3XWK 08/29/21 05/07/23 History release (Elias Low Dose Aspirin) atorvastatin 40 mg tablet 40 mg PO QPM 08/29/21 05/07/23 History clopidogrel 75 mg tablet 75 mg PO DAILY 08/29/21 05/07/23 History phenylephrine 0.25 %-pramoxine 1 1 applic AK Q6 PRN Hemorrhoids 08/29/21 05/07/23 History %-glycerin-wh.petrolatum rectal cream (Preparation H Maximum Strength) vit C 250 mg-E 90 mg-zinc 40 1 tab PO BID 06/20/22 05/07/23 History mg-copper 1 [id number] chew tablet (PreserVision AREDS-2) citalopram 10 mg tablet 20 mg PO DAILY 08/01/22 05/07/23 History amlodipine 10 mg tablet 10 mg PO QAM 10/21/22 05/07/23 History oxycodone 5 mg tablet 5 mg PO Q6H PRN Pain 11/25/22 05/07/23 History pentoxifylline 400 mg 400 mg PO TID 11/25/22 05/07/23 History tablet,extended release Abh Gel 1 applic topical AMHS 05/07/23 05/07/23 History aluminum-mag hydroxide-simethicone 30 ml PO Q6 PRN Indigestion 05/07/23 05/07/23 History 400 mg-400 mg-40 mg/5 mL oral susp (Maalox Maximum Strength) dextran 70-hypromellose eye drops 1 drp ophthalmic (eye) Q4 PRN mild 05/07/23 05/07/23 History in a dropperette (Artificial Tears dry eye (PF) drops in a dropperette) guaifenesin 600 mg tablet, 600 mg PO Q12H PRN mucous 05/07/23 05/07/23 History extended release 12 hr ipratropium 20 mcg-albuterol 100 1 puff inhalation Q6H PRN 05/07/23 05/07/23 History mcg/actuation mist for inhalation SOB/WHEEZE (Combivent Respimat) ketoconazole 2 % topical cream 1 applic topical BID PRN flares 05/07/23 05/07/23 History ondansetron HCl 4 mg tablet 4 mg PO Q6H PRN nausea/vomiting 05/07/23 05/07/23 History povidone-iodine 10 % topical 1 applic topical .EVERY EVENING 05/07/23 05/07/23 History solution (Betadine) SHIFT sennosides 8.6 mg-docusate sodium 1 tab-cap PO AMHS 05/07/23 05/07/23 History 50 mg tablet (Senokot-S) tramadol 50 mg tablet 100 mg PO Q6H PRN pain 5-8 05/07/23 05/07/23 History Past Med/Surg History Medical History Altered mental status Carotid stenosis, asymptomatic s/p Left carotid endarterectomy (7 years ago) 70-79% Left CEA with fibrofatty plaque and 70-79% restenosis per 10/2022 carotid duplex Chronic obstructive pulmonary disease CKD (chronic kidney disease) Diabetes Dysphagia Metabolic encephalopathy Hx shelter resident Osteomyelitis Hx PAD (peripheral artery disease) PVD (peripheral vascular disease) Solitary pulmonary nodule Surgical History History of carotid endarterectomy Left carotid endarterectomy (7 years ago) History of cataract surgery R/L Right (10/28/22): MAC at [facility] Hx of angiography B/L LE angiogram 09/13/22 [place] Angiogram with stent left external iliac artery Hx of right BKA Social History Smoking Status: Former smoker Tobacco Type: Cigarettes Do You Dip or Chew Tobacco: No; Hx Alcohol Use: No Hx Substance Use: No Preferred Language: Guyanese Communication Ability: Effective Carburetor Repairer Required: No Beliefs That Will Affect Care: None marital status: / Current Living Situation: Personal Care Facility How many Children do You have: 2 Other Information That Helps Us Care for You: No Feels Safe at Home: Yes Assistive Devices: Wheelchair Review of Systems Review of Systems: All systems reviewed & are unremarkable except as noted in HPI & below Physical Exam Constitutional: well developed, well nourished, + in distress and + diaphoretic Eyes: + anicteric sclerae ENMT: Nose: + dry nasal mucous membranes Neck: trachea midline, no thyromegaly Respiratory: + respiratory distress Auscultation: + rhonchi and + wheezes Cardiovascular: Rate/Rhythm: regular rate and regular rhythm Heart Sounds: + murmur Vessels: no JVD and + dorsalis pedis pulses abnormal Extremities: no edema LLE is cold to the touch Gastrointestinal (Abdomen): Inspection/Auscultation: abdomen normal to inspection Percussion/Palpation: abdomen soft; abdomen nontender Musculoskeletal: Head/Neck/Chest: normocephalic and head atraumatic R BKA noted Skin: + turgor decreased; no rashes Psychiatric: Orientation: alert and oriented x 3 Affect: + anxious affect Mood: + irritable mood Genitourinary: + abnormal external appearance (dried blood on the external labia and in her Depends) Lymphatic: no cervical or axillary lymphadenopathy Results & Data Results & Data Vital Signs (Past 12 Hours) Vital Signs Temp Pulse Pulse Resp BP Pulse Ox O2 Del Method 05/07/23 05:46 37.3 C 72 28 H 118/49 L 91 05/07/23 05:09 80 26 H 95 05/07/23 04:41 76 05/07/23 04:36 29 H 92 High Flow Nasal Cannula 05/07/23 04:46 37.0 C 77 16 137/66 91 05/07/23 04:16 37.2 C 80 32 H 116/66 90 05/07/23 04:01 37.7 C H 83 16 109/57 L 90 05/07/23 03:50 79 33 H 90 05/07/23 03:45 79 30 H 130/81 90 05/07/23 03:40 77 20 90 05/07/23 03:30 76 24 117/63 90 05/07/23 03:20 70 23 94 05/07/23 03:15 68 24 118/53 L 94 05/07/23 03:10 69 27 H 93 05/07/23 03:00 69 27 H 110/48 L 93 05/07/23 02:50 70 26 H 90 05/07/23 02:45 64 21 105/43 L 90 05/07/23 02:40 66 25 H 93 05/07/23 02:35 68 24 107/49 L 95 05/07/23 02:31 71 20 79/39 L 91 05/07/23 02:30 80 24 72/43 L 94 05/07/23 02:20 76 23 117/50 L 97 05/07/23 02:16 78 26 H 91 05/07/23 02:10 80 29 H 94 05/07/23 02:00 118/57 L 90 05/07/23 01:45 77 22 120/80 89 L 09/27/23 01:40 79 26 H 91 05/07/23 01:30 76 21 109/51 L 90 05/07/23 01:20 76 31 H 91 05/07/23 01:15 78 26 H 112/64 89 L 05/07/23 01:10 79 19 90 05/07/23 01:08 84 23 110/57 L 89 L 05/07/23 03:45 37.2 C 79 30 H 130/81 91 05/07/23 00:37 69 05/07/23 01:00 88 31 H 114/56 L 89 L 05/07/23 01:17 88 L Nasal Cannula, Oxymask 05/07/23 00:47 95 Nasal Cannula 05/07/23 00:46 79 L Nasal Cannula 05/07/23 00:40 37.7 C H 73 24 114/49 L 79 L Room Air O2 Flow Rate FiO2 05/07/23 05:46 05/07/23 05:09 30 65 05/07/23 04:41 05/07/23 04:36 30 65 05/07/23 04:46 05/07/23 04:16 05/07/23 04:01 05/07/23 03:50 05/07/23 03:45 05/07/23 03:40 05/07/23 03:30 05/07/23 03:20 05/07/23 03:15 05/07/23 03:10 05/07/23 03:00 05/07/23 02:50 05/07/23 02:45 05/07/23 02:40 05/07/23 02:35 05/07/23 02:31 05/07/23 02:30 05/07/23 02:20 05/07/23 02:16 05/07/23 02:10 05/07/23 02:00 05/07/23 01:45 05/07/23 01:40 05/07/23 01:30 05/07/23 01:20 05/07/23 01:15 05/07/23 01:10 05/07/23 01:08 05/07/23 03:45 8 05/07/23 00:37 05/07/23 01:00 05/07/23 01:17 6 05/07/23 00:47 6 05/07/23 00:46 0 05/07/23 00:40 Supervising Physician Co-Signing Physician Notes Attending addendum: I have physically seen this patient, have supervised the medical residents activities, and agree with the H&P unless as otherwise noted. Assessment and Plan: Acute on chronic respiratory failure- Transitioned from nasal cannula to heated high flow to BiPAP in the ED with goal pulse ox 92-94% Likely due to physiologic stress of severe anemia Sepsis, likely secondary to UTI- Follow urine culture and sensitivity Continue cefepime 2 g IV every 12 hours begun in the ED IV fluids when not getting transfused Acute blood loss anemia- Hemoglobin 5.8 on admission Source appears to be vaginal bleeding Holding aspirin and Plavix Give DDAVP IV x1 Transfusing 2 units PRBCs from the ED, and recheck laboratories every 4 hours x3 then every morning Remaining orders and notations as noted (8) Chronic pain Chronic pain type: chronic pain syndrome Qualified Code(s): G89.4 - Chronic pain syndrome
--- NOTE | 2023-05-07 06:56 | XRay Report ---
XR chest 1V portable HISTORY: Dyspnea COMPARISON: Chest 12/17/2022. FINDINGS: No pneumothorax. No pleural effusions. The heart is normal in size. There is persistent richy vation the right hemidiaphragm. The patient's left lower lobe pulmonary nodule is again noted. There is mild perihilar interstitial thickening suggestive of mild congestive change. There are patchy airs pace opacities within the left mid to lower lung zone which are new from the prior study. Prior rosalina cystectomy. IMPRESSION: 1. New patchy airspace opacities within the left mid to lower lung zone. This favors a pneumonia. 2. Mild central pulmonary vascular congestion without overt edema. 3. Redemonstration of the left lower lobe pulmonary nodule. ACT 112: Negative or not required by law. Electronically signed by: Blayne Lebron M.D. 05/07/2023 6:55 AM
[2023-05-07] MEDS: ALBUT/IPRATROP 3MG/0.5MG NEB 3 ML VIAL NEB SCH ×5 (07:00→23:39)
[2023-05-07] MEDS ORDERED: FUROSEMIDE 40 MG/4 ML VIAL IV STA (08:11)
[2023-05-07] MEDS ORDERED: FUROSEMIDE 40 MG/4 ML VIAL IV ONE ×2 (08:17→14:58)
[2023-05-07] MEDS: DOCUSATE SODIUM/SENNA 50/8.6MG TAB PO SCH ×2 (08:37→20:26)
[2023-05-07] MEDS: LACTATED RINGER'S 1,000 ML IV SCH ×2 (08:37→21:35)
[2023-05-07] MEDS: CITALOPRAM 20 MG TAB PO SCH (08:39)
[2023-05-07] MEDS: NICOTINE 14 MG/24 HR PATCH TD SCH (08:39)
[2023-05-07] MEDS: IRON SUCROSE 200 MG in 0.9 % SODIUM CHLORIDE 100 ML IV SCH (09:58)
[2023-05-07] MEDS ORDERED: CEFEPIME 2,000 MG in SYRINGE 0 ML IV SCH (10:00)
[2023-05-07] MEDS: HYDROmorphone INJ 0.5 MG/0.5 ML SYR IV PRN ×2 (11:24→23:17)
[2023-05-07 13:36] LABS: Hemoglobin 8.1 g/dl (12.0-16.0)
--- NOTE | 2023-05-07 16:46 | Ultrasound Report ---
PELVIC ULTRASOUND CLINICAL HISTORY: vaginal bleeding in postmenopausal female COMPARISON STUDY: Pelvic ultrasound November 14, 2007. CT of the abdomen and pelvis May 20, 2021. TECHNIQUE: Transabdominal and transvaginal sonography of the pelvis was attempted. FINDINGS: Bladder was collapsed, containing a Casanova catheter. Therefore, transabdominal exam was sign ificantly compromised and the uterus and ovaries were not visualized. The patient was unable to kevin ate transvaginal exam. No adnexal masses are identified. There was no free fluid. IMPRESSION: Technically compromised examination, as described above. Nondiagnostic evaluation of the uterus and ovaries. ACT 112: Negative or not required by law. Electronically signed by: Parish Vinson M.D. 05/07/2023 4:45 PM
[2023-05-07 17:26] LABS: Hematocrit (blood only) 28.5 % (37.0-47.0); Hemoglobin 8.6 g/dl (12.0-16.0)
--- NOTE | 2023-05-07 18:05 | OB/GYN Consultation ---
Date of Consultation May 07, 2023 Assessment & Plan (1) Abnormal vaginal bleeding: I discussed the findings of today's pelvic ultrasound and my exam with patient. It appears that this bleeding is vaginal. The volume of bleeding appears light on exam. The pelvic ultrasound was unable to visualize anatomy, given lack of bladder distention with the Casanova catheter and patient's intolerance of transvaginal ultrasound probe. I discussed with patient further work-up for this bleeding. We could consider a CT abdomen pelvis, while this is not an ideal way to visualize pelvic organs, it may determine whether there is significantly abnormal pelvic anatomy. She is agreeable to do this. We discussed potential next steps after imaging, including exam under anesthesia, endometrial biopsy and/or dilation and curettage in the OR. She expressed clearly to me that she is not interested in invasive procedures for this problem. She questioned whether she even wanted to know what was causing this bleeding, stating that she is 82 years old. At this time, since she is agreeable to CT abdomen and pelvis, will place orders for this imaging, as it may shed light on potential causes for her vaginal bleeding. She is not interested in further invasive testing or procedures at this time. She is not interested in surgery. We discussed that if she is agreeable to further testing or work-up (pelvic ultrasound, endometrial biopsy) could do this in [facility] office when her acute inpatient problems have improved. She might consider seeing [facility] outpatient, but does not think she would like to undergo invasive testing. We briefly discussed and she is aware that there is a possibility that she may have a uterine mass or cancer that is causing this bleeding. In discussion with Dr Mahmood, I placed orders for CT abdomen/pelvis without contrast to further eval pelvic organs, however she will likely not be i nterested in further invasive testing for this problem. History of Present Illness Reason for Consultation: vaginal bleeding Requesting Physician: Dr Branch Attending Physician: Abrahan Mahmood MD History of Present Illness 82yo presented today to [facility] ER from [facility] with fever, shortness of breath, nausea, constipation. She is admitted currently to PCU with acute and chronic respiratory failure, severe sepsis with leukocytosis, hypotension. She has been diagnosed with UTI. She additionally has been reporting "tomato soup"-like vaginal discharge for a few weeks, she is not sure how long. She describes it as both red and brown in color at times. She initially thought she had actually spilled tomato soup in her lap, but has since come to realize this is actually discharge. On admission to the ER, her hemoglobin was 5.8. In review of her records, she has been anemic with slowly dropping hemoglobin since December 2022. She received 2 units of packed red cells in the ER. She reports gynecologic history of 2 vaginal deliveries, states she has had Pap smears in the past, they have always been normal. No history of gynecologic surgery. Allergies Allergy/AdvReac Type Severity Reaction Status Date / Time benzoyl peroxide Allergy Severe Rash Verified 12/17/22 06:31 lorazepam [From Ativan] Allergy Mild Flushed, Verified 12/17/22 06:31 elevated BP, skin burning Home Medications Medication Instructions Recorded Confirmed Type acetaminophen 325 mg tablet 650 mg PO Q6 PRN fever/pain 08/29/21 05/07/23 History (Tylenol) aspirin 81 mg tablet,delayed 81 mg PO 3XWK 08/29/21 05/07/23 History release (Elias Low Dose Aspirin) atorvastatin 40 mg tablet 40 mg PO QPM 08/29/21 05/07/23 History clopidogrel 75 mg tablet 75 mg PO DAILY 08/29/21 05/07/23 History phenylephrine 0.25 %-pramoxine 1 1 applic [place] Q6 PRN Hemorrhoids 08/29/21 05/07/23 History %-glycerin-wh.petrolatum rectal cream (Preparation H Maximum Strength) vit C 250 mg-E 90 mg-zinc 40 1 tab PO BID 06/20/22 05/07/23 History mg-copper 1 hs-mkdksu-kudeiw chew tablet (PreserVision AREDS-2) citalopram 10 mg tablet 20 mg PO DAILY 08/01/22 05/07/23 History amlodipine 10 mg tablet 10 mg PO QAM 10/21/22 05/07/23 History oxycodone 5 mg tablet 5 mg PO Q6H PRN Pain 11/25/22 05/07/23 History pentoxifylline 400 mg 400 mg PO TID 11/25/22 05/07/23 History tablet,extended release Abh Gel 1 applic topical AMHS 05/07/23 05/07/23 History aluminum-mag hydroxide-simethicone 30 ml PO Q6 PRN Indigestion 05/07/23 05/07/23 History 400 mg-400 mg-40 mg/5 mL oral susp (Maalox Maximum Strength) dextran 70-hypromellose eye drops 1 drp ophthalmic (eye) Q4 PRN mild 05/07/23 05/07/23 History in a dropperette (Artificial Tears dry eye (PF) drops in a dropperette) guaifenesin 600 mg tablet, 600 mg PO Q12H PRN mucous 05/07/23 05/07/23 History extended release 12 hr ipratropium 20 mcg-albuterol 100 1 puff inhalation Q6H PRN 05/07/23 05/07/23 History mcg/actuation mist for inhalation SOB/WHEEZE (Combivent Respimat) ketoconazole 2 % topical cream 1 applic topical BID PRN flares 05/07/23 05/07/23 History ondansetron HCl 4 mg tablet 4 mg PO Q6H PRN nausea/vomiting 05/07/23 05/07/23 History povidone-iodine 10 % topical 1 applic topical .EVERY EVENING 05/07/23 05/07/23 History solution (Betadine) SHIFT sennosides 8.6 mg-docusate sodium 1 tab-cap PO AMHS 05/07/23 05/07/23 History 50 mg tablet (Senokot-S) tramadol 50 mg tablet 100 mg PO Q6H PRN pain 5-8 05/07/23 05/07/23 History Patient History Medical History Altered mental status Carotid stenosis, asymptomatic s/p Left carotid endarterectomy (7 years ago) 70-79% Left CEA with fibrofatty plaque and 70-79% restenosis per 10/2022 carotid duplex Chronic obstructive pulmonary disease CKD (chronic kidney disease) Diabetes Dysphagia Metabolic encephalopathy Hx [facility] resident Osteomyelitis Hx PAD (peripheral artery disease) PVD (peripheral vascular disease) Solitary pulmonary nodule Surgical History History of carotid endarterectomy Left carotid endarterectomy (7 years ago) History of cataract surgery R/L Right (10/28/22): [place] [facility] [place]x of angiography B/L LE angiogram 09/13/22 [place] Angiogram with stent left external iliac artery Hx of right BKA Social History Smoking Status: Former smoker Tobacco Type: Cigarettes Do You Dip or Chew Tobacco: No; Hx Alcohol Use: No Hx Substance Use: No Preferred Language: Upper Sorbian Communication Ability: Effective Accounts Manager Required: No Beliefs That Will Affect Care: None marital status: / Current Living Situation: Personal Care Facility How many Children do You have: 2 Other Information That Helps Us Care for You: No Feels Safe at Home: Yes Assistive Devices: Wheelchair Physical Exam Physical Exam: On my visit, patient is awake, sitting in bed. She was agreeable to gentle digital pelvic exam, however was unable to tolerate transvaginal ultrasound probe and declines speculum exam. There was a scant amount of brownish discharge on the bed pad underneath her. She had been in this bed for approximately 1 hour. With RN present in room, I performed a gentle digital pelvic exam. Cervix was palpable and smooth. No obvious palpable mass in vagina or pelvis, no obvious fistula. There is a small amount of brownish discharge all over the glove, and it appeared the bleeding was vaginal. Casanova catheter was in place and actively draining for clear yellow urine, no visible blood in the Casanova bag or tubing. Right BKA. Results & Data Vital Signs (Past 12 Hours) Vital Signs Temp Pulse Pulse Pulse Resp BP BP 05/07/23 16:47 57 L 05/07/23 16:18 05/07/23 16:16 36.5 C 59 L 26 H 124/52 L 05/07/23 16:12 70 18 05/07/23 14:02 87 20 05/07/23 10:27 58 L 18 05/07/23 09:55 36.7 C 64 20 137/61 05/07/23 09:32 70 22 05/07/23 09:32 160/66 H 05/07/23 09:30 75 20 05/07/23 09:15 73 23 05/07/23 09:15 137/74 05/07/23 09:00 64 26 H 05/07/23 09:00 142/67 H 05/07/23 08:45 117/58 L 05/07/23 08:19 65 22 214/47 H 09/27/23 08:19 60 22 105/57 L 05/07/23 08:04 64 20 124/70 05/07/23 07:54 05/07/23 07:49 65 24 136/46 L 05/07/23 07:34 36.6 C 68 24 134/56 L 05/07/23 07:31 64 05/07/23 07:19 68 20 135/50 L 05/07/23 07:16 67 21 135/50 L 05/07/23 07:01 64 22 05/07/23 06:52 36.8 C 66 20 129/52 L 05/07/23 06:46 37.2 C 63 26 H 125/62 05/07/23 06:35 80 24 Pulse Ox O2 Del Method O2 Flow Rate FiO2 05/07/23 16:47 05/07/23 16:18 High Flow Nasal Cannula 40 85 05/07/23 16:16 93 High Flow Nasal Cannula 40 85 05/07/23 16:12 91 High Flow Nasal Cannula 40 85 05/07/23 14:02 97 High Flow Nasal Cannula 40 90 05/07/23 10:27 99 High Flow Nasal Cannula 40 100 05/07/23 09:55 95 05/07/23 09:32 98 05/07/23 09:32 05/07/23 09:30 96 05/07/23 09:15 94 05/07/23 09:15 05/07/23 09:00 98 05/07/23 09:00 05/07/23 08:45 05/07/23 08:19 95 05/07/23 08:19 95 05/07/23 08:04 95 05/07/23 07:54 High Flow Nasal Cannula 40 100 05/07/23 07:49 95 05/07/23 07:34 95 05/07/23 07:31 05/07/23 07:19 94 05/07/23 07:16 94 05/07/23 07:01 93 High Flow Nasal Cannula 30 100 05/07/23 06:52 93 05/07/23 06:46 92 05/07/23 06:35 91 Oxymask, High Flow Nasal Cannula 30 100 PG Care Time/CCT Total # of Minutes Spent Total Time Spent with Patient: Total time spent is greater than 50% in coordination of care (as documented) at patient's floor/unit and/or counseling patient: Coding Level of Care Code 90486 INT INP/OBS CARE Diagnoses Abnormal vaginal bleeding N93.9
[2023-05-07] MEDS: ACETAMINOPHEN 1,000 MG/100 ML VIAL IV PRN (19:10)
--- NOTE | 2023-05-07 19:28 | Billing Data ---
Date of Service May 07, 2023 Coding Level of Care Code 46708 INT INP/OBS CARE
[2023-05-07] MEDS: ATORVASTATIN 40 MG TAB PO SCH (20:26)
[2023-05-07] MEDS: CEFEPIME 1,000 MG in SYRINGE 0 ML IV SCH (21:25)
--- NOTE | 2023-05-07 22:12 | CT Scan Report ---
Exam(s): CT ABDOMEN + PELVIS Without Contrast EXAM: CT Abdomen and Pelvis Without Intravenous Contrast CLINICAL HISTORY: Reason for exam: vaginal bleeding, eval pelvic organs. TECHNIQUE: Axial computed tomography images of the abdomen and pelvis without intravenous contrast. CTDI is 19.2 mGy and DLP is 1021.66 mGy-cm. Automated exposure control was utilized for the study. A dose lowering technique was utilized adhering to the principles of ALARA. COMPARISON: 05/20/2021. FINDINGS: Lung bases: Bilateral lower lobe consolidation compatible with pneumonia. Consolidation within the right middle lobe suggestive of atelectasis versus infiltrate. Mild atelectasis of the lingular lobe. Nonspecific mosaic pattern throughout the remainder of the lung lambert concerning for small airway disease. Pleural space: Mild bilateral bilateral pleural effusions. Heart: Unremarkable. No significant pericardial effusion. Normal cardiac size. ABDOMEN: Liver: Unremarkable. Gallbladder and bile ducts: Status post cholecystectomy. No ductal dilation. Pancreas: Unremarkable. No ductal dilation. Spleen: Unremarkable. No splenomegaly. Adrenals: Unremarkable. No mass. Kidneys and ureters: Small hyperdense structure within the left kidney measuring 6 mm, likely hemorrhagic cyst. No obstructing stones. No hydronephrosis. Stomach and bowel: Increased fecal debris within the colon concerning for constipation. No obstruction. No mucosal thickening. PELVIS: Appendix: Normal appendix. Bladder: Urinary bladder is decompressed by a Casanova catheter. No stones. Reproductive: The uterus is anteverted. Mild rigidity with bulbous appearance near the endometrium may indicate a small submucosal fibroid. ABDOMEN and PELVIS: Intraperitoneal space: Unremarkable. No free air. No significant fluid collection. Bones/joints: Advanced degenerative disease of the spine with multilevel vacuum phenomenon. No acute fracture. No dislocation. Soft tissues: Unremarkable. Vasculature: Diffuse atherosclerotic disease of aorta. Mild aneurysmal dilatation of the distal abdominal aorta up to 3.6 cm in maximum perpendicular dimension. There is stenting of the proximal right external iliac artery. There is stenting of the left common iliac artery extending into the proximal left external iliac artery. Lymph nodes: Unremarkable. No enlarged lymph nodes. IMPRESSION: 1. Cannot exclude submucosal uterine fibroid, follow-up recommended with pelvic ultrasound for more accurate characterization. 2. Constipation. No acute appendicitis or bowel obstruction. 3. Significant atherosclerotic disease throughout the aorta and aortic branches with distal abdominal aortic aneurysm measuring up to 3.5 cm. 4. Multilobar basilar pneumonia with possible involvement of the right middle lobe. Lingular atelectasis. Mild bilateral pleural effusions. Electronically signed by: Piedad Logan MD 05/07/23 22:11 PM
[2023-05-08] MEDS: ALBUT/IPRATROP 3MG/0.5MG NEB 3 ML VIAL NEB SCH ×6 (03:16→22:58)
[2023-05-08] MEDS: HYDROmorphone INJ 0.5 MG/0.5 ML SYR IV PRN ×4 (04:31→22:47)
[2023-05-08] MEDS: ACETAMINOPHEN 1,000 MG/100 ML VIAL IV PRN ×2 (04:35→15:31)
[2023-05-08 07:42] LABS: Hematocrit (blood only) 29.4 % (37.0-47.0); Hemoglobin 8.6 g/dl (12.0-16.0); Mean Corpuscular Hemoglobin 22.6 pg (25.0-34.0); Mean Corpuscular Hgb Conc 29.3 g/dL (32.0-36.0); Mean Corpuscular Volume 77.2 fL (80.0-100.0); Mean Platelet Volume 10.9 fL (9.4-12.4); Platelet Count 243 K/uL (130-400); RDW Coefficient of Variation 21.7 % (11.5-14.5); RDW Standard Deviation 59.6 fL (36.4-46.3); Red Blood Count 3.81 M/uL (4.20-5.40); White Blood Count 14.96 K/ul (4.8-10.8)
[2023-05-08 07:53] LABS: Albumin Globulin Ratio 1.2 (0.9-2); Albumin Level 3.2 gm/dl (3.4-5.0); BUN Creatinine Ratio 21.1 (10-20); Bilirubin,Total 0.5 mg/dl (0.2-1.0); Calcium 8.3 mg/dl (8.6-10.3); Creatinine Clr Calc Pharmacy 28.4 ml/min; Est GFR (African American) 43.6 ml/min; Est GFR (Non-African American) 37.7 ml/min; Globulin 2.6 gm/dl (2.5-4.0); Magnesium 2.1 mg/dl (1.7-2.4); Potassium 4.2 mmol/L (3.5-5.1); Total Protein 5.8 gm/dl (6.0-8.3)
--- NOTE | 2023-05-08 08:33 | Gynecologic Progress Note ---
Date of Service May 08, 2023 Assessment & Plan Admission and Anticipated Discharge Date Admission Date: May 07, [address] abd/pelvis - uterus somewhat enlarged, ?fibroid. I had discussed with patient that she can follow up outpatient for further workup if she desires - she expressed that she was not interested in invasive testing for this vaginal bleeding. Do not suspect that her uterus is contributing significantly to her primary medical problems. Please contact on-call OBGYN if any questions or concerns arise. Results & Data Vital Signs (Past 12 Hours) Vital Signs Temp Pulse Pulse Resp BP BP Pulse Ox 05/08/23 08:05 57 L 05/08/23 07:43 36.7 C 58 L 22 164/68 H 90 05/08/23 07:18 53 L 12 90 05/08/23 03:19 36.5 C 60 24 138/68 90 05/08/23 03:14 89 L 05/07/23 23:41 59 L 28 H 92 05/07/23 23:03 36.5 C 56 L 24 108/54 L 96 05/07/23 22:54 54 L 05/07/23 20:33 O2 Del Method O2 Flow Rate FiO2 05/08/23 08:05 05/08/23 07:43 High Flow Nasal Cannula 05/08/23 07:18 High Flow Nasal Cannula 30 75 05/08/23 03:19 High Flow Nasal Cannula 05/08/23 03:14 High Flow Nasal Cannula 40 75 05/07/23 23:41 High Flow Nasal Cannula 40 65 05/07/23 23:03 High Flow Nasal Cannula 05/07/23 22:54 05/07/23 20:33 High Flow Nasal Cannula 40 65
[2023-05-08] MEDS: IRON SUCROSE 200 MG in 0.9 % SODIUM CHLORIDE 100 ML IV SCH ×2 (09:14→10:56)
[2023-05-08] MEDS: NICOTINE 14 MG/24 HR PATCH TD SCH (10:46)
[2023-05-08] MEDS: CEFEPIME 1,000 MG in SYRINGE 0 ML IV SCH ×2 (11:27→21:02)
[2023-05-08] MEDS: LACTATED RINGER'S 1,000 ML IV SCH (11:29)
[2023-05-08] MEDS ORDERED: VANCOMYCIN CONSULT ACTIVE PRN (11:42)
[2023-05-08] MEDS ORDERED: VANCOMYCIN HCL 1,000 MG in SODIUM CHLORIDE 0.9% 500 ML IV SCH (11:45)
[2023-05-08] MEDS: DOCUSATE SODIUM/SENNA 50/8.6MG TAB PO SCH ×2 (11:58→21:03)
[2023-05-08] MEDS: CITALOPRAM 20 MG TAB PO SCH (11:58)
--- NOTE | 2023-05-08 12:01 | Hospitalist Progress Note ---
Date of Service May 08, 2023 Assessment & Plan (1) Acute and chronic respiratory failure: Plan: Patient is an 82-year-old female with a past medical history of right LISA due to PAD, nicotine dependence, COPD, DM 2, htn and carotid stenosis who presents to the hospital for evaluation of hypoxia. Work-up thus far has revealed blood loss anemia secondary to abnormal vaginal bleeding and severe sepsis likely due to urinary tract infection and or multifocal Pneumonia. -Acute hypoxemic respiratory failure secondary to multifocal Pneumonia on top of chronic COPD -Chest x ray and CT showed evidence of multilobar Pneumonia -Currently on high flow oxygen, goal saturation of 88 to 92%. -WBC is improving following antibiotivs -Blood cultures negative so far -Continue IV cefepime -Duonebs PRN (2) Severe sepsis: Plan: -SIRS criteria of leukocytosis, hypotension, and end-organ damage plus likely urinary and pulmonary source making criteria for severe sepsis -Urinalysis positive for leukocyte esterase, blood, and white blood cells. Start cefepime in the ED, continue every 8 hours -Blood cultures and urine cultures collected -Sahu catheter placed for accurate I's and O's -Continue IV antibiotics (3) UTI (urinary tract infection): Plan: - As above (4) Acute blood loss anemia: Plan: -Likely secondary to vaginal bleeding, possibly from a submucosal fibroid in the setting of aspirin and Plavix use -Hb 8.4 following trnasfusion of 2 units of blood (5) Iron deficiency: Plan: -previously noted low total iron and ferritin -in addition to blood products above, added venofer infusions, 200mg daily x5 days (6) Chronic obstructive pulmonary disease: Plan: -89-fxfy-ofcu smoker and continues to smoke -Nicotine patch applied -Typically takes Combivent as needed but does not have any maintenance inhalers per my chart review -For now make DuoNeb scheduled every every 4 hour, consider adding maintenance inhalers (7) Diabetes: Plan: -Not on any medications at home -Diet controlled -Typically would order A1c but given acute anemia with transfusion, this will be inaccurate (8) Chronic pain: Plan: - 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 -Seems to be exacerbated in the ED, switch pain medication to 0.25 mg of Dilaudid for moderate pain, 0.5 mg for severe pain -If pain improves return back to home regimen of tramadol and oxycodone (9) Abnormal vaginal bleeding: Plan: - Transvaginal ultrasound was not useful due to empty bladder from sahu -CT abdomen and pelvis shows possible sub mucosal fibroid -However, patient does not want any procedure to further help make a diagnosis -Appreciate Gynecology (10) PAD (peripheral artery disease): Plan: -Hold aspirin and Plavix in the setting of active bleed -Hold pentoxifylline (11) Hx of right BKA: Plan: - Secondary to PAD as above (12) Hypertension: Plan: - Hold amlodipine given soft blood pressures in emergency department Plan Disposition: Admit to PCU for severe sepsis DVT prophylaxis: Contraindicated in active bleed Diet: Heart healthy with low-sodium CODE STATUS: DNR/DNI as discussed with patient. Admission and Anticipated Discharge Date Admission Date: May 07, 2023 Subjective patient seen and examined, does not want to be disturbed Review of Systems Review of Systems: unreliable Physical Exam Physical Exam: The patient is awake, drowsy, HEENT--PERRL, EOMI, mucous membranes and oropharynx mildly dry Neck--supple. No JVD. No bruits. Thyroid normal, trachea midline, no adenopathy. Heart--normal S1 and S2. No murmurs, rubs or gallops. Lungs--reduced air entry, crackles Abdomen--normal bowel sounds and soft. Extremities--no cyanosis or clubbing. No edema. Dermatologic--normal skin turgor, normal color, no abnormal lymph nodes, no luke h. Neurologic--cranial nerves II through XII grossly intact. Rheumatologic--normal range of motion. Psychiatric--normal affect. Results & Data Results & Data Vital Signs (Past 12 Hours) Vital Signs Temp Pulse Pulse Resp BP Pulse Ox O2 Del Method 05/08/23 11:03 97.9 F 67 24 144/60 H 90 High Flow Nasal Cannula 05/08/23 10:54 65 20 91 High Flow Nasal Cannula 05/08/23 08:05 57 L 05/08/23 07:43 98.1 F 58 L 22 164/68 H 90 High Flow Nasal Cannula 05/08/23 07:18 53 L 12 90 High Flow Nasal Cannula 05/08/23 03:19 97.7 F 60 24 138/68 90 High Flow Nasal Cannula 05/08/23 03:14 89 L High Flow Nasal Cannula O2 Flow Rate FiO2 05/08/23 11:03 05/08/23 10:54 30 75 05/08/23 08:05 05/08/23 07:43 05/08/23 07:18 30 75 05/08/23 03:19 05/08/23 03:14 40 75 PG Care Time/CCT Total # of Minutes Spent Total Time Spent with Patient: Total time spent is greater than 50% in coordination of care (as documented) at patient's floor/unit and/or counseling patient: Coding Level of Care Code 50154 SUB INP/OBS CARE 235MIN Diagnoses Acute and chronic respiratory failure J96.20 Severe sepsis A41.9; R65.20 UTI (urinary tract infection) N39.0 Acute blood loss anemia D62 Iron deficiency E61.1 Chronic obstructive pulmonary disease J44.9 Diabetes E11.9 Chronic pain G89.4 Chronic pain type: chronic pain syndrome Abnormal vaginal bleeding N93.9 PAD (peripheral artery disease) I73.9 Hx of right BKA Z89.511 Hypertension I10 Time Spent (min) 35 (8) Chronic pain Chronic pain type: chronic pain syndrome Qualified Code(s): G89.4 - Chronic pain syndrome
[2023-05-08 13:19] LABS: Base Excess VBG -0.4 mEq/L; HCO3 VBG 26 mmol/L; Oxygen Saturation VBG 66.3 %; PCO2 VBG 48 mmHg (38-50); PO2 VBG 40 mmHg; pH VBG 7.34 (7.36-7.41)
--- NOTE | 2023-05-08 15:42 | Palliative Care Consultation ---
Date of Consultation May 08, 2023 Assessment & Plan (1) Weakness generalized: (2) Dyspnea and respiratory abnormalities: (3) Altered mental status: Altered mental status type: disorientation Qualified Code(s): R41.0 - Disorientation, unspecified (4) Palliative care by specialist: (5) Acute and chronic respiratory failure: (6) Abnormal vaginal bleeding: (7) Severe sepsis: Plan Pt intermittently lethargic. Was able to participate a bit in consult but not prolonged discussion. She denies significant symptoms but I felt she appeared to be in some resp distress. It is noted she is on high flow oxygen currently FiO2 100% with 40lpm flow While she is not floridly delirious/CAMICU screen was negative at time of my visit; she has a limited decisional capacity. She can answer simple and straightforward questions but she cannot follow a more detailed discussion. Staff report intermittent agitation and resistance to care. Did try to bite RT and spat on another nursing provider. She was relatively pleasant during my visit but MAR does indicate a low dose of Dilaudid for pain approx 3 hrs ago. please continue gentle, low dose pain and symptom mgt. Recommend hold parameters for opioids as follows: hold for somnolence or resp rate less than 14/min & document reps rate with every opioid dose administered. No family present. Son is reported to be surrogate. patient has historically refused aggressive care. Will try reaching her son(s) for further discussion. Please page me if family (sons) arrive at bedside. Thank you for allowing us to participate in the ongoing care of this patient. Please don't hesitate to call or page with any additional concerns. Dr. Cat Marquez DNP Director, Palliative Care History of Present Illness Reason for Consultation: "goc" Attending Physician: Abrahan Mahmood MD History of Present Illness Acacia is an 82yo female admitted from longterm with hypoxia. 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 Work- up thus far has revealed blood loss anemia secondary to abnormal vaginal bleeding and severe sepsis likely due to urinary tract infection. She was admitted to the progressive care unit for fluid resuscitation, blood transfusion, and antibiotic therapy. She resides at [facility] Her mentation has been intermittently AMS Today she is lethargic but cooperative, will answer a few simple questions but easily drifts back off She denies pain She denies SOB "if I'm not doing anything I'm fine I think" She admits to a disruptive cough "but it isn't all the time' denies adb pain not hungry denies n/v/d/c cannot recall why she came to hospital no family present longterm reported vaginal bleed. this was evaluated this admission by PERSONAL COUNSELOR who noted uterus somewhat enlarged, ?fibroid. Pt declined further workup/invasive testing for this vaginal bleeding. She agreed to CT imaging but no surgery. Allergies Allergy/AdvReac Type Severity Reaction Status Date / Time benzoyl peroxide Allergy Severe Rash Verified 12/17/22 06:31 lorazepam [From Ativan] Allergy Mild Flushed, Verified 12/17/22 06:31 elevated BP, skin burning Home Medications Medication Instructions Recorded Confirmed Type acetaminophen 325 mg tablet 650 mg PO Q6 PRN fever/pain 08/29/21 05/07/23 History (Tylenol) aspirin 81 mg tablet,delayed 81 mg PO 3XWK 08/29/21 05/07/23 History release (Elias Low Dose Aspirin) atorvastatin 40 mg tablet 40 mg PO QPM 08/29/21 05/07/23 History clopidogrel 75 mg tablet 75 mg PO DAILY 08/29/21 05/07/23 History phenylephrine 0.25 %-pramoxine 1 1 applic PA Q6 PRN Hemorrhoids 08/29/21 05/07/23 History %-glycerin-wh.petrolatum rectal cream (Preparation H Maximum Strength) vit C 250 mg-E 90 mg-zinc 40 1 tab PO BID 06/20/22 05/07/23 History mg-copper 1 dd-xoglii-gicfrm chew tablet (PreserVision AREDS-2) citalopram 10 mg tablet 20 mg PO DAILY 08/01/22 05/07/23 History amlodipine 10 mg tablet 10 mg PO QAM 10/21/22 05/07/23 History oxycodone 5 mg tablet 5 mg PO Q6H PRN Pain 11/25/22 05/07/23 History pentoxifylline 400 mg 400 mg PO TID 11/25/22 05/07/23 History tablet,extended release Abh Gel 1 applic topical AMHS 05/07/23 05/07/23 History aluminum-mag hydroxide-simethicone 30 ml PO Q6 PRN Indigestion 05/07/23 05/07/23 History 400 mg-400 mg-40 mg/5 mL oral susp (Maalox Maximum Strength) dextran 70-hypromellose eye drops 1 drp ophthalmic (eye) Q4 PRN mild 05/07/23 05/07/23 History in a dropperette (Artificial Tears dry eye (PF) drops in a dropperette) guaifenesin 600 mg tablet, 600 mg PO Q12H PRN mucous 05/07/23 05/07/23 History extended release 12 hr ipratropium 20 mcg-albuterol 100 1 puff inhalation Q6H PRN 05/07/23 05/07/23 History mcg/actuation mist for inhalation SOB/WHEEZE (Combivent Respimat) ketoconazole 2 % topical cream 1 applic topical BID PRN flares 05/07/23 05/07/23 History ondansetron HCl 4 mg tablet 4 mg PO Q6H PRN nausea/vomiting 05/07/23 05/07/23 History povidone-iodine 10 % topical 1 applic topical .EVERY EVENING 05/07/23 05/07/23 History solution (Betadine) SHIFT sennosides 8.6 mg-docusate sodium 1 tab-cap PO AMHS 05/07/23 05/07/23 History 50 mg tablet (Senokot-S) tramadol 50 mg tablet 100 mg PO Q6H PRN pain 5-8 05/07/23 05/07/23 History Patient History Medical History (Updated 05/08/23 @ 15:51 by Cat Marquez DNP) Altered mental status Carotid stenosis, asymptomatic s/p Left carotid endarterectomy (7 years ago) 70-79% Left CEA with fibrofatty plaque and 70-79% restenosis per 10/2022 carotid duplex Chronic obstructive pulmonary disease CKD (chronic kidney disease) Diabetes Dysphagia Metabolic encephalopathy Hx correction resident Osteomyelitis Hx PAD (peripheral artery disease) PVD (peripheral vascular disease) Solitary pulmonary nodule Surgical History (Updated 12/17/22 @ 14:55 by Trae Silver PA-C) History of carotid endarterectomy Left carotid endarterectomy (7 years ago) History of cataract surgery R/L Right (10/28/22): [place] [facility] [place]x of angiography B/L LE angiogram 09/13/22 [place] Angiogram with stent left external iliac artery Hx of right BKA Social History Smoking Status: Former smoker Tobacco Type: Cigarettes Do You Dip or Chew Tobacco: No; Hx Alcohol Use: No Hx Substance Use: No Preferred Language: French Communication Ability: Unable 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: No Beliefs That Will Affect Care: None marital status: / Current Living Situation: Personal Care Facility How many Children do You have: 2 Other Information That Helps Us Care for You: No Feels Safe at Home: Yes Assistive Devices: Prosthesis and Walker Review of Systems Review of Systems: All systems reviewed & are unremarkable except as noted in Subjective Physical Exam Constitutional: + ill appearing, + frail appearing, + disheveled, cooperative and + lethargic Eyes: PERRL ENMT: Mouth: + dry oral mucous membranes, + dental caries and + poor dentition Throat: uvula midline Neck: normal visual inspection and trachea midline Respiratory: + respiratory distress (mild) and + cough Auscultation: + diminished lung sounds and + rhonchi (inc effort, mild conversational dyspnea, intermittent bronchitic cough) Cardiovascular: RRR Gastrointestinal (Abdomen): soft distension, BS+, non tender, no rebound, no guarding Musculoskeletal: right BKA, well healed, non tender, no erythema LLE with venous insuff changes Skin: + turgor decreased and + pallor Neurologic: lethargic at times, drifts off easily CAM-ICU screen neg Results & Data Vital Signs (Past 12 Hours) Vital Signs Temp Pulse Pulse Resp BP Pulse Ox O2 Del Method 05/08/23 14:50 80 20 98 High Flow Nasal Cannula 05/08/23 11:59 68 12 91 05/08/23 11:03 36.6 C 67 24 144/60 H 90 High Flow Nasal Cannula 05/08/23 10:54 65 20 91 High Flow Nasal Cannula 05/08/23 08:05 57 L 05/08/23 07:43 36.7 C 58 L 22 164/68 H 90 High Flow Nasal Cannula 05/08/23 07:18 53 L 12 90 High Flow Nasal Cannula 05/08/23 03:19 36.5 C 60 24 138/68 90 High Flow Nasal Cannula O2 Flow Rate FiO2 05/08/23 14:50 40 100 05/08/23 11:59 40 100 05/08/23 11:03 05/08/23 10:54 30 75 05/08/23 08:05 05/08/23 07:43 05/08/23 07:18 30 75 05/08/23 03:19 Laboratory Results data reviewed Diagnostic Findings data reviewed CT A/P:. 1. Cannot exclude submucosal uterine fibroid, follow-up recommended with pelvic ultrasound for more accurate characterization. 2. Constipation. No acute appendicitis or bowel obstruction. 3. Significant atherosclerotic disease throughout the aorta and aortic branches with distal abdominal aortic aneurysm measuring up to 3.5 cm. 4. Multilobar basilar pneumonia with possible involvement of the right middle lobe. Lingular atelectasis. Mild bilateral pleural effusions. Bladder US: Bladder was collapsed, containing a Casanova catheter. Therefore, transabdominal exam was significantly compromised and the uterus and ovaries were not visualized. The patient was unable to tolerate transvaginal exam. No adnexal masses are identified. There was no free fluid. CXR: 1. New patchy airspace opacities within the left mid to lower lung zone. This favors a pneumonia. 2. Mild central pulmonary vascular congestion without overt edema. 3. Redemonstration of the left lower lobe pulmonary nodule. PG Care Time/CCT Total # of Minutes Spent Total Time Spent: 75 Total Time Spent with Patient: Total time spent is greater than 50% in coordination of care (as documented) at patient's floor/unit and/or counseling patient: I spent 75 minutes overall addressing this case: 15 in medical data review/discussion with referring provider(s) and/or preparation for the visit 45 in direct interaction with the patient 00 Advance Care Planning/Goals of Care discussions as detailed above in note (must be >16min) 5 in subsequent review and synthesis of assessment and plan 10in communicating with other providers regarding the patient's case: primary team, nursing [place] [address] IN/OBS CONSULT LVL 5,80M Patient Type New History Comprehensive Exam Comprehensive Medical Decision Making High Complexity Diagnoses Weakness generalized R53.1 Dyspnea and respiratory abnormalities R06.00; R06.89 Altered mental status R41.0 Altered mental status type: disorientation Palliative care by specialist Z51.5 Acute and chronic respiratory failure J96.20 Abnormal vaginal bleeding N93.9 Severe sepsis A41.9; R65.20
[2023-05-08] MEDS: ATORVASTATIN 40 MG TAB PO SCH (21:03)
[2023-05-09] MEDS: ALBUT/IPRATROP 3MG/0.5MG NEB 3 ML VIAL NEB SCH ×3 (02:53→10:25)
[2023-05-09] MEDS: HYDROmorphone INJ 0.5 MG/0.5 ML SYR IV PRN ×4 (02:55→22:12)
--- NOTE | 2023-05-09 05:42 | Electrocardiogram Report ---
Test Reason : Blood Pressure : / mmHG Vent. Rate : 069 BPM Atrial Rate : 069 BPM P-R Int : 122 ms QRS Dur : 112 ms QT Int : 438 ms P-R-T Axes : 037 -53 026 degrees QTc Int : 469 ms Normal sinus rhythm Incomplete right bundle branch block Left anterior fascicular block Possible Lateral infarct , age undetermined Abnormal ECG When compared with ECG of 04-DEC-2022 13:38, No significant change was found Confirmed by Karel Carrera ([id number]) on 05/09/2023 5:42:06 AM Referred By: [facility] Confirmed By:Karel Carrera
[2023-05-09 06:41] LABS: Hematocrit (blood only) 28.9 % (37.0-47.0); Hemoglobin 8.9 g/dl (12.0-16.0); Mean Corpuscular Hemoglobin 23.2 pg (25.0-34.0); Mean Corpuscular Hgb Conc 30.8 g/dL (32.0-36.0); Mean Corpuscular Volume 75.5 fL (80.0-100.0); Mean Platelet Volume 10.5 fL (9.4-12.4); Platelet Count 276 K/uL (130-400); RDW Coefficient of Variation 23.2 % (11.5-14.5); RDW Standard Deviation 60.9 fL (36.4-46.3); Red Blood Count 3.83 M/uL (4.20-5.40); White Blood Count 15.84 K/ul (4.8-10.8)
[2023-05-09 06:53] LABS: Albumin Globulin Ratio 1.1 (0.9-2); Albumin Level 3.2 gm/dl (3.4-5.0); BUN Creatinine Ratio 20.8 (10-20); Bilirubin,Total 0.6 mg/dl (0.2-1.0); Calcium 8.6 mg/dl (8.6-10.3); Creatinine Clr Calc Pharmacy 37.5 ml/min; Est GFR (African American) 60.9 ml/min; Est GFR (Non-African American) 52.5 ml/min; Globulin 2.8 gm/dl (2.5-4.0); Potassium 4.5 mmol/L (3.5-5.1)
[2023-05-09] MEDS ORDERED: HALOPERIDOL LACTATE 5 MG/ML 1 ML VIAL IV PRN (07:39)
[2023-05-09] MEDS ORDERED: VANCOMYCIN CONSULT ACTIVE PRN (07:42)
[2023-05-09] MEDS ORDERED: VANCOMYCIN HCL 1,250 MG in SODIUM CHLORIDE 0.9% 500 ML IV ONE (07:42)
[2023-05-09] MEDS ORDERED: VANCOMYCIN HCL 1,500 MG in SODIUM CHLORIDE 0.9% 500 ML IV ONE (08:00)
[2023-05-09] MEDS: IRON SUCROSE 200 MG in 0.9 % SODIUM CHLORIDE 100 ML IV SCH (08:37)
[2023-05-09] MEDS: NICOTINE 14 MG/24 HR PATCH TD SCH (08:38)
[2023-05-09] MEDS: DOCUSATE SODIUM/SENNA 50/8.6MG TAB PO SCH ×3 (08:42→20:17)
[2023-05-09] MEDS: CITALOPRAM 20 MG TAB PO SCH ×2 (08:42→10:42)
[2023-05-09] MEDS: CEFEPIME 2,000 MG in SYRINGE 0 ML IV SCH ×2 (09:11→20:00)
[2023-05-09] MEDS: LACTATED RINGER'S 1,000 ML IV SCH (13:33)
--- NOTE | 2023-05-09 14:07 | Pharmacy Report ---
Pharmacy PK ABX Note - Date of Service May 09, 2023 - Assessment and Plan Assessment 82 year old F receiving vancomycin and cefepime empirically for treatment of possible pneumonia w/ history of MRSA infection. Pertinent microbiologic data includes: MRSA nasal swab currently pending, blood cultures x 2 show no growth at 48 hours, urine culture shows no growth. Day # 1 of antimicrobial therapy. Persistent leukocytosis, afebrile over past 24 hours. Plan Vancomycin * Loading dose: 1500 mg IV x 1 * Maintenance dose: 1000 mg IV every 24 hours * Regimen is predicted to achieve target AUC/WARREN of 400-600 mg/L.hr * Will order vancomycin level if therapy is to be continued beyond 48 hours Cefepime * 2 g IV q12h - appropriate for pulmonary infection based on today's estimated CrCl Pharmacy will continue to follow and will adjust dose/frequency as necessary. Thank you. Pharmacy has transitioned to AUC monitoring for vancomycin. AUC/WARREN is the preferred PK/PD target and is associated with decreased risk of nephrotoxicity compared to traditional trough targets.
--- NOTE | 2023-05-09 15:33 | Hospitalist Progress Note ---
Date of Service May 09, 2023 Assessment & Plan (1) Acute and chronic respiratory failure: Plan: Patient is an 82-year-old female with a past medical history of right LISA due to PAD, nicotine dependence, COPD, DM 2, htn and carotid stenosis who presents to the hospital for evaluation of hypoxia. Work-up thus far has revealed blood loss anemia secondary to abnormal vaginal bleeding and severe sepsis likely due to urinary tract infection and or multifocal Pneumonia. -Acute hypoxemic respiratory failure secondary to multifocal Pneumonia on top of chronic COPD -Chest x ray and CT showed evidence of multilobar Pneumonia -Currently on high flow oxygen, goal saturation of 88 to 92%. -WBC initially improving following antibiotivs, but got slightly worse -Blood cultures negative so far -Continue IV cefepime, add Vancomycin -Duonebs PRN Wean as tolerated (2) Severe sepsis: Plan: -SIRS criteria of leukocytosis, hypotension, and end-organ damage plus likely urinary and pulmonary source making criteria for severe sepsis -Urinalysis positive for leukocyte esterase, blood, and white blood cells. Start cefepime in the ED, continue every 8 hours, add vancomycin -Blood cultures and urine cultures collected -Sahu catheter placed for accurate I's and O's -Continue IV antibiotics (3) UTI (urinary tract infection): Plan: - As above (4) Acute blood loss anemia: Plan: -Likely secondary to vaginal bleeding, possibly from a submucosal fibroid in the setting of aspirin and Plavix use -Hb 8.4 following trnasfusion of 2 units of blood (5) Iron deficiency: Plan: -previously noted low total iron and ferritin -in addition to blood products above, added venofer infusions, 200mg daily x5 days (6) Chronic obstructive pulmonary disease: Plan: -22-tlpe-doxn smoker and continues to smoke -Nicotine patch applied -Typically takes Combivent as needed but does not have any maintenance inhalers per my chart review -For now make DuoNeb scheduled every every 4 hour, consider adding maintenance inhalers (7) Diabetes: Plan: -Not on any medications at home -Diet controlled -Typically would order A1c but given acute anemia with transfusion, this will be inaccurate (8) Chronic pain: Plan: - 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 -Seems to be exacerbated in the ED, switch pain medication to 0.25 mg of Dilaudid for moderate pain, 0.5 mg for severe pain -If pain improves return back to home regimen of tramadol and oxycodone (9) Abnormal vaginal bleeding: Plan: - Transvaginal ultrasound was not useful due to empty bladder from sahu -CT abdomen and pelvis shows possible sub mucosal fibroid -However, patient does not want any procedure to further help make a diagnosis -Appreciate Gynecology (10) PAD (peripheral artery disease): Plan: -Hold aspirin and Plavix in the setting of active bleed -Hold pentoxifylline (11) Hx of right BKA: Plan: - Secondary to PAD as above (12) Hypertension: Plan: - Hold amlodipine given soft blood pressures in emergency department (13) Acute encephalopathy: Plan: acute on chronic encephlopathy most likely delirium on top of dementia PRN haldol for agitation Plan Disposition: continue hospitalization DVT prophylaxis: Contraindicated in active bleed Diet: Heart healthy with low-sodium CODE STATUS: DNR/DNI as discussed with patient. Admission and Anticipated Discharge Date Admission Date: May 07, 2023 Subjective patient seen and examined, a little agitated Review of Systems Review of Systems: unreliable Physical Exam Physical Exam: The patient is awake, drowsy, HEENT--PERRL, EOMI, mucous membranes and oropharynx mildly dry Neck--supple. No JVD. No bruits. Thyroid normal, trachea midline, no adenopath y. Heart--normal S1 and S2. No murmurs, rubs or gallops. Lungs--reduced air entry, crackles Abdomen--normal bowel sounds and soft. Extremities--no cyanosis or clubbing. No edema. Dermatologic--normal skin turgor, normal color, no abnormal lymph nodes, no rash. Neurologic--cranial nerves II through XII grossly intact. Rheumatologic--normal range of motion. Psychiatric--normal affect. Results & Data Results & Data Vital Signs (Past 12 Hours) Vital Signs Temp Pulse Pulse Pulse Resp BP BP 05/09/23 15:27 98.4 F 65 21 149/56 H 05/09/23 15:07 60 05/09/23 14:48 60 20 05/09/23 07:45 05/09/23 10:48 98.6 F 65 22 151/58 H 05/09/23 10:26 88 26 H 05/09/23 06:58 76 20 05/09/23 06:58 76 Pulse Ox O2 Del Method O2 Flow Rate FiO2 05/09/23 15:27 93 High Flow Nasal Cannula 05/09/23 15:07 05/09/23 14:48 95 High Flow Nasal Cannula 40 75 05/09/23 07:45 High Flow Nasal Cannula 05/09/23 10:48 95 High Flow Nasal Cannula 05/09/23 10:26 94 High Flow Nasal Cannula 35 75 05/09/23 06:58 96 High Flow Nasal Cannula 40 80 05/09/23 06:58 96 High Flow Nasal Cannula 40 80 PG Care Time/CCT Total # of Minutes Spent Total Time Spent with Patient: Total time spent is greater than 50% in coordination of care (as documented) at patient's floor/unit and/or counseling patient: Coding Level of Care Code 84829 SUB INP/OBS CARE 2/35MIN Diagnoses Acute and chronic respiratory failure J96.20 Severe sepsis A41.9; R65.20 UTI (urinary tract infection) N39.0 Acute blood loss anemia D62 Iron deficiency E61.1 Chronic obstructive pulmonary disease J44.9 Diabetes E11.9 Chronic pain G89.4 Chronic pain type: chronic pain syndrome Abnormal vaginal bleeding N93.9 PAD (peripheral artery disease) I73.9 Hx of right BKA Z89.511 Hypertension I10 Acute encephalopathy G93.40 Time Spent (min) 35 (8) Chronic pain Chronic pain type: chronic pain syndrome Qualified Code(s): G89.4 - Chronic pain syndrome
[2023-05-09] MEDS: VANCOMYCIN HCL 1,000 MG in SODIUM CHLORIDE 0.9% 250 ML IV SCH (17:54)
[2023-05-09] MEDS: HALOPERIDOL LACTATE 5 MG/ML 1 ML VIAL IM PRN (19:53)
[2023-05-09] MEDS: ATORVASTATIN 40 MG TAB PO SCH (20:00)
[2023-05-10] MEDS: ACETAMINOPHEN 1,000 MG/100 ML VIAL IV PRN (02:29)
[2023-05-10] MEDS: HYDROmorphone INJ 0.5 MG/0.5 ML SYR IV PRN ×4 (02:29→21:42)
[2023-05-10 07:04] LABS: Hematocrit (blood only) 28.1 % (37.0-47.0); Hemoglobin 8.3 g/dl (12.0-16.0); Mean Corpuscular Hemoglobin 22.9 pg (25.0-34.0); Mean Corpuscular Hgb Conc 29.5 g/dL (32.0-36.0); Mean Corpuscular Volume 77.4 fL (80.0-100.0); Mean Platelet Volume 10.8 fL (9.4-12.4); Platelet Count 253 K/uL (130-400); RDW Coefficient of Variation 23.9 % (11.5-14.5); RDW Standard Deviation 62.7 fL (36.4-46.3); Red Blood Count 3.63 M/uL (4.20-5.40); White Blood Count 11.55 K/ul (4.8-10.8)
[2023-05-10] MEDS: IRON SUCROSE 200 MG in 0.9 % SODIUM CHLORIDE 100 ML IV SCH (07:28)
[2023-05-10 07:33] LABS: Est GFR (African American) 65.6 ml/min; Est GFR (Non-African American) 56.6 ml/min
[2023-05-10] MEDS: CEFEPIME 2,000 MG in SYRINGE 0 ML IV SCH ×2 (08:08→20:08)
[2023-05-10] MEDS: NICOTINE 14 MG/24 HR PATCH TD SCH (08:09)
[2023-05-10] MEDS: DOCUSATE SODIUM/SENNA 50/8.6MG TAB PO SCH ×2 (08:15→20:13)
[2023-05-10] MEDS: CITALOPRAM 20 MG TAB PO SCH (08:15)
--- NOTE | 2023-05-10 09:53 | Hospitalist Progress Note ---
Date of Service May 10, 2023 Assessment & Plan (1) Acute and chronic respiratory failure: Plan: Patient is an 82-year-old female with a past medical history of right LISA due to PAD, nicotine dependence, COPD, DM 2, htn and carotid stenosis who presents to the hospital for evaluation of hypoxia. Work-up thus far has revealed blood loss anemia secondary to abnormal vaginal bleeding and severe sepsis likely due to urinary tract infection and or multifocal Pneumonia. -Acute hypoxemic respiratory failure secondary to multifocal Pneumonia on top of chronic COPD -Chest x ray and CT showed evidence of multilobar Pneumonia -Still on high flow oxygen, goal saturation of 88 to 92%. -WBC improving, patient feels better -Blood cultures negative so far -Continue IV cefepime, and Vancomycin -Duonebs PRN Wean as tolerated (2) Severe sepsis: Plan: -SIRS criteria of leukocytosis, hypotension, and end-organ damage plus likely urinary and pulmonary source making criteria for severe sepsis -Urinalysis positive for leukocyte esterase, blood, and white blood cells. Start cefepime in the ED, continue every 8 hours, add vancomycin -Blood cultures and urine cultures collected -Sahu catheter placed for accurate I's and O's -Continue IV antibiotics (3) UTI (urinary tract infection): Plan: - As above (4) Acute blood loss anemia: Plan: -Likely secondary to vaginal bleeding, possibly from a submucosal fibroid in the setting of aspirin and Plavix use -Hb 8.4 following trnasfusion of 2 units of blood (5) Iron deficiency: Plan: -previously noted low total iron and ferritin -in addition to blood products above, added venofer infusions, 200mg daily x5 days (6) Chronic obstructive pulmonary disease: Plan: -26-[id number]-vvjl smoker and continues to smoke -Nicotine patch applied -Typically takes Combivent as needed but does not have any maintenance inhalers per my chart review -For now make DuoNeb scheduled every every 4 hour, consider adding maintenance inhalers (7) Diabetes: Plan: -Not on any medications at home -Diet controlled -Typically would order A1c but given acute anemia with transfusion, this will be inaccurate (8) Chronic pain: Plan: - 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 -Seems to be exacerbated in the ED, switch pain medication to 0.25 mg of Dilaudid for moderate pain, 0.5 mg for severe pain -If pain improves return back to home regimen of tramadol and oxycodone (9) Abnormal vaginal bleeding: Plan: - Transvaginal ultrasound was not useful due to empty bladder from sahu -CT abdomen and pelvis shows possible sub mucosal fibroid -However, patient does not want any procedure to further help make a diagnosis -Appreciate Gynecology (10) PAD (peripheral artery disease): Plan: -Hold aspirin and Plavix in the setting of active bleed -Hold pentoxifylline (11) Hx of right BKA: Plan: - Secondary to PAD as above (12) Hypertension: Plan: - Hold amlodipine given soft blood pressures in emergency department (13) Acute encephalopathy: Plan: acute on chronic encephlopathy most likely delirium on top of dementia PRN haldol for agitation Plan Disposition: continue hospitalization DVT prophylaxis: Contraindicated in active bleed Diet: Heart healthy with low-sodium CODE STATUS: DNR/DNI as discussed with patient. Admission and Anticipated Discharge Date Admission Date: May 07, 2023 Subjective patient seen and examined, more awake and alert, tolerating regular diet, still on high flow oxygen Review of Systems Review of Systems: All systems reviewed are negative, apart from the ones contained in the history. Physical Exam Physical Exam: The patient is awake, still on high flow oxygen HEENT--PERRL, EOMI, mucous membranes and oropharynx mildly dry Neck--supple. No JVD. No bruits. Thyroid normal, trachea midline, no adenopathy. Heart--normal S1 and S2. No murmurs, rubs or gallops. Lungs--reduced air entry, crackles Abdomen--normal bowel sounds and soft. Extremities--Right BKA Dermatologic--normal skin turgor, normal color, no abnormal lymph nodes, no rash. Neurologic--cranial nerves II through XII grossly intact. Rheumatologic--normal range of motion. Psychiatric--normal affect. Results & Data Results & Data Vital Signs (Past 12 Hours) Vital Signs Temp Pulse Pulse Resp BP BP Pulse Ox 05/10/23 08:03 98.1 F 69 24 160/70 H 90 05/10/23 07:20 68 22 90 05/10/23 07:06 59 L 05/10/23 03:13 99.1 F 66 18 130/47 L 91 05/10/23 02:11 74 20 92 05/09/23 23:52 98.4 F 71 18 137/80 95 05/09/23 23:22 72 05/09/23 22:10 24 88 L O2 Del Method O2 Flow Rate FiO2 05/10/23 08:03 High Flow Nasal Cannula 35 70 05/10/23 07:20 High Flow Nasal Cannula 35 70 05/10/23 07:06 05/10/23 03:13 High Flow Nasal Cannula 35 70 05/10/23 02:11 High Flow Nasal Cannula 35 70 05/09/23 23:52 High Flow Nasal Cannula 40 80 05/09/23 23:22 05/09/23 22:10 High Flow Nasal Cannula 40 80 PG Care Time/CCT Total # of Minutes Spent Total Time Spent with Patient: Total time spent is greater than 50% in coordination of care (as documented) at patient's floor/unit and/or counseling patient: Coding Level of Care Code 56855 SUB INP/OBS CARE 2/35MIN Diagnoses Acute and chronic respiratory failure J96.20 Severe sepsis A41.9; R65.20 UTI (urinary tract infection) N39.0 Acute blood loss anemia D62 Iron deficiency E61.1 Chronic obstructive pulmonary disease J44.9 Diabetes E11.9 Chronic pain G89.4 Chronic pain type: chronic pain syndrome Abnormal vaginal bleeding N93.9 PAD (peripheral artery disease) I73.9 Hx of right BKA Z89.511 Hypertension I10 Acute encephalopathy G93.40 Time Spent (min) 35 (8) Chronic pain Chronic pain type: chronic pain syndrome Qualified Code(s): G89.4 - Chronic pain syndrome
[2023-05-10] MEDS: ALBUT/IPRATROP 3MG/0.5MG NEB 3 ML VIAL NEB PRN ×2 (10:45→19:04)
[2023-05-10] MEDS: VANCOMYCIN HCL 1,000 MG in SODIUM CHLORIDE 0.9% 250 ML IV SCH (17:50)
[2023-05-10] MEDS ORDERED: ACETAMINOPHEN 325 MG TAB PO STA (17:58)
[2023-05-10] MEDS: ATORVASTATIN 40 MG TAB PO SCH ×2 (20:09→20:13)
[2023-05-10] MEDS: MELATONIN 3 MG TAB PO PRN (22:45)
[2023-05-11] MEDS: HYDROmorphone INJ 0.5 MG/0.5 ML SYR IV PRN ×5 (01:59→18:34)
[2023-05-11] MEDS: ALBUT/IPRATROP 3MG/0.5MG NEB 3 ML VIAL NEB PRN ×3 (04:54→15:29)
[2023-05-11 06:34] LABS: Hematocrit (blood only) 31.6 % (37.0-47.0); Hemoglobin 9.4 g/dl (12.0-16.0); Mean Corpuscular Hgb Conc 29.7 g/dL (32.0-36.0); Mean Corpuscular Volume 77.3 fL (80.0-100.0); Mean Platelet Volume 10.2 fL (9.4-12.4); Platelet Count 249 K/uL (130-400); RDW Coefficient of Variation 24.6 % (11.5-14.5); RDW Standard Deviation 63.6 fL (36.4-46.3); Red Blood Count 4.09 M/uL (4.20-5.40); White Blood Count 12.19 K/ul (4.8-10.8)
[2023-05-11 06:53] LABS: Est GFR (African American) 72.9 ml/min; Est GFR (Non-African American) 62.9 ml/min
[2023-05-11] MEDS: IRON SUCROSE 200 MG in 0.9 % SODIUM CHLORIDE 100 ML IV SCH (07:23)
[2023-05-11] MEDS: NICOTINE 14 MG/24 HR PATCH TD SCH (07:26)
[2023-05-11] MEDS: CEFEPIME 2,000 MG in SYRINGE 0 ML IV SCH ×2 (08:06→21:01)
[2023-05-11] MEDS: CITALOPRAM 20 MG TAB PO SCH (09:08)
[2023-05-11] MEDS: DOCUSATE SODIUM/SENNA 50/8.6MG TAB PO SCH ×2 (09:08→21:01)
--- NOTE | 2023-05-11 13:48 | Hospitalist Progress Note ---
Date of Service May 11, 2023 Assessment & Plan (1) Acute and chronic respiratory failure: Plan: Patient is an 82-year-old female with a past medical history of right LIAS due to PAD, nicotine dependence, COPD, DM 2, htn and carotid stenosis who presents to the hospital for evaluation of hypoxia. Work-up thus far has revealed blood loss anemia secondary to abnormal vaginal bleeding and severe sepsis likely due to urinary tract infection and or multifocal Pneumonia. -Acute hypoxemic respiratory failure secondary to multifocal Pneumonia on top of chronic COPD -Chest x ray and CT showed evidence of multilobar Pneumonia -Still on high flow oxygen, goal saturation of 88 to 92%. -WBC improving, patient feels better -Blood cultures negative so far -Continue IV cefepime, and Vancomycin -Duonebs PRN -Wean as tolerated (2) Severe sepsis: Plan: -SIRS criteria of leukocytosis, hypotension, and end-organ damage plus likely urinary and pulmonary source making criteria for severe sepsis -Now resolving -Urinalysis positive for leukocyte esterase, blood, and white blood cells. Start cefepime in the ED, continue every 8 hours, add vancomycin -Blood cultures and urine cultures collected -Sahu catheter placed for accurate I's and O's -Continue IV antibiotics (3) UTI (urinary tract infection): Plan: - As above (4) Acute blood loss anemia: Plan: -Likely secondary to vaginal bleeding, possibly from a submucosal fibroid in the setting of aspirin and Plavix use -Hb stable following transfusion of 2 units of blood (5) Iron deficiency: Plan: -previously noted low total iron and ferritin -in addition to blood products above, added venofer infusions, 200mg daily x5 days (6) Chronic obstructive pulmonary disease: Plan: -19-alzw-ebba smoker and continues to smoke -Nicotine patch applied -Typically takes Combivent as needed but does not have any maintenance inhalers per my chart review -For now make DuoNeb scheduled every every 4 hour, consider adding maintenance inhalers (7) Diabetes: Plan: -Not on any medications at home -Diet controlled -Typically would order A1c but given acute anemia with transfusion, this will be inaccurate (8) Chronic pain: Plan: - 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 -Seems to be exacerbated in the ED, switch pain medication to 0.25 mg of Dilaudid for moderate pain, 0.5 mg for severe pain -If pain improves return back to home regimen of tramadol and oxycodone (9) Abnormal vaginal bleeding: Plan: - Transvaginal ultrasound was not useful due to empty bladder from sahu -CT abdomen and pelvis shows possible sub mucosal fibroid -However, patient does not want any procedure to further help make a diagnosis -Appreciate Gynecology (10) PAD (peripheral artery disease): Plan: -Hold aspirin and Plavix in the setting of active bleed -Hold pentoxifylline (11) Hx of right BKA: Plan: - Secondary to PAD as above (12) Hypertension: Plan: - Hold amlodipine given soft blood pressures in emergency department (13) Acute encephalopathy: Plan: acute on chronic encephlopathy most likely delirium on top of dementia PRN haldol for agitation Plan Disposition: continue hospitalization DVT prophylaxis: Contraindicated in active bleed Diet: Heart healthy with low-sodium CODE STATUS: DNR/DNI as discussed with patient. Admission and Anticipated Discharge Date Admission Date: May 07, 2023 Subjective patient seen and examined, more awake and alert, tolerating regular diet, still on high flow oxygen, sitting at the edge of the bed Review of Systems Review of Systems: All systems reviewed are negative, apart from the ones contained in the history. Physical Exam Physical Exam: The patient is awake, still on high flow oxygen HEENT--PERRL, EOMI, mucous membranes and oropharynx mildly dry Neck--supple. No JVD. No bruits. Thyroid normal, trachea midline, no adenopathy. Heart--normal S1 and S2. No murmurs, rubs or gallops. Lungs--reduced air entry, crackles Abdomen--normal bowel sounds and soft. Extremities--Right BKA Dermatologic--normal skin turgor, normal color, no abnormal lymph nodes, no rash. Neurologic--cranial nerves II through XII grossly intact. Rheumatologic--normal range of motion. Psychiatric--normal affect. Results & Data Results & Data Vital Signs (Past 12 Hours) Vital Signs Temp Pulse Pulse Resp BP BP Pulse Ox 05/11/23 11:39 98.2 F 70 22 181/70 H 88 L 05/11/23 08:00 79 05/11/23 07:59 98.4 F 67 20 177/70 H 92 05/11/23 07:08 68 20 93 05/11/23 04:55 82 20 91 05/11/23 03:52 97.7 F 69 20 171/66 H 96 05/11/23 02:33 102 H 20 95 O2 Del Method O2 Flow Rate FiO2 05/11/23 11:39 High Flow Nasal Cannula 25 55 05/11/23 08:00 05/11/23 07:59 High Flow Nasal Cannula 30 60 05/11/23 07:08 High Flow Nasal Cannula 30 65 05/11/23 04:55 High Flow Nasal Cannula 30 65 05/11/23 03:52 High Flow Nasal Cannula 30 65 05/11/23 02:33 High Flow Nasal Cannula 30 65 PG Care Time/CCT Total # of Minutes Spent Total Time Spent with Patient: Total time spent is greater than 50% in coordination of care (as documented) at patient's floor/unit and/or counseling patient: Coding Level of Care Code 49837 SUB INP/OBS CARE 2/35MIN Diagnoses Acute and chronic respiratory failure J96.20 Severe sepsis A41.9; R65.20 UTI (urinary tract infection) N39.0 Acute blood loss anemia D62 Iron deficiency E61.1 Chronic obstructive pulmonary disease J44.9 Diabetes E11.9 Chronic pain G89.4 Chronic pain type: chronic pain syndrome Abnormal vaginal bleeding N93.9 PAD (peripheral artery disease) I73.9 Hx of right BKA Z89.511 Hypertension I10 Acute encephalopathy G93.40 Time Spent (min) 35 (8) Chronic pain Chronic pain type: chronic pain syndrome Qualified Code(s): G89.4 - Chronic pain syndrome
[2023-05-11] MEDS: ACETAMINOPHEN 325 MG TAB PO PRN (14:30)
[2023-05-11] MEDS ORDERED: VANCOMYCIN HCL 1,250 MG in SODIUM CHLORIDE 0.9% 250 ML IV SCH (18:00)
[2023-05-11] MEDS: ATORVASTATIN 40 MG TAB PO SCH (21:01)
[2023-05-11] MEDS: MELATONIN 3 MG TAB PO PRN (21:01)
[2023-05-11] MEDS: HALOPERIDOL LACTATE 5 MG/ML 1 ML VIAL IM PRN (21:02)
[2023-05-12] MEDS: HALOPERIDOL LACTATE 5 MG/ML 1 ML VIAL IM PRN (01:12)
[2023-05-12] MEDS: HYDROmorphone INJ 0.5 MG/0.5 ML SYR IV PRN (01:12)
[2023-05-12 06:52] LABS: Hemoglobin 8.3 g/dl (12.0-16.0); Mean Corpuscular Hemoglobin 23.6 pg (25.0-34.0); Mean Corpuscular Hgb Conc 30.7 g/dL (32.0-36.0); Mean Corpuscular Volume 76.9 fL (80.0-100.0); Mean Platelet Volume 10.3 fL (9.4-12.4); Platelet Count 199 K/uL (130-400); RDW Coefficient of Variation 25.5 % (11.5-14.5); RDW Standard Deviation 64.7 fL (36.4-46.3); Red Blood Count 3.51 M/uL (4.20-5.40); White Blood Count 12.57 K/ul (4.8-10.8)
[2023-05-12] MEDS: ALBUT/IPRATROP 3MG/0.5MG NEB 3 ML VIAL NEB PRN (07:14)
[2023-05-12 07:22] LABS: Creatinine Clr Calc Pharmacy 48.2 ml/min; Est GFR (African American) 84.5 ml/min; Est GFR (Non-African American) 72.9 ml/min
[2023-05-12] MEDS: CITALOPRAM 20 MG TAB PO SCH (08:09)
[2023-05-12] MEDS: NICOTINE 14 MG/24 HR PATCH TD SCH (08:09)
[2023-05-12] MEDS: CEFEPIME 2,000 MG in SYRINGE 0 ML IV SCH ×2 (08:10→20:32)
[2023-05-12] MEDS: DOCUSATE SODIUM/SENNA 50/8.6MG TAB PO SCH ×2 (08:11→20:32)
--- NOTE | 2023-05-12 13:10 | Hospitalist Progress Note ---
Date of Service May 12, 2023 Assessment & Plan (1) Acute and chronic respiratory failure: Plan: Patient is an 82-year-old female with a past medical history of right LISA due to PAD, nicotine dependence, COPD, DM 2, htn and carotid stenosis who presents to the hospital for evaluation of hypoxia. Work-up thus far has revealed blood loss anemia secondary to abnormal vaginal bleeding and severe sepsis likely due to urinary tract infection and or multifocal Pneumonia. -Acute hypoxemic respiratory failure secondary to multifocal Pneumonia on top of chronic COPD -Chest x ray and CT showed evidence of multilobar Pneumonia -Still on high flow oxygen, goal saturation of 88 to 92%. -WBC improving, patient feels better -Blood cultures negative so far, MRSA swab is negative -Continue IV cefepime, discontinue Vancomycin -Duonebs PRN -Wean as tolerated (2) Severe sepsis: Plan: -SIRS criteria of leukocytosis, hypotension, and end-organ damage plus likely urinary and pulmonary source making criteria for severe sepsis -Now resolving -Urinalysis positive for leukocyte esterase, blood, and white blood cells. -Blood cultures and urine cultures collected, negative so far -Sahu catheter placed for accurate I's and O's -Continue IV antibiotics, Cefepime (3) UTI (urinary tract infection): Plan: - As above (4) Acute blood loss anemia: Plan: -Likely secondary to vaginal bleeding, possibly from a submucosal fibroid in the setting of aspirin and Plavix use -Hb stable following transfusion of 2 units of blood (5) Iron deficiency: Plan: -previously noted low total iron and ferritin -in addition to blood products above, added venofer infusions, 200mg daily x5 days (6) Chronic obstructive pulmonary disease: Plan: -96-[id number]-[id number] smoker and continues to smoke -Nicotine patch applied -Typically takes Combivent as needed but does not have any maintenance inhalers per my chart review -For now make DuoNeb scheduled every every 4 hour, consider adding maintenance inhalers (7) Diabetes: Plan: -Not on any medications at home -Diet controlled -Typically would order A1c but given acute anemia with transfusion, this will be inaccurate (8) Chronic pain: Plan: - 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 -Seems to be exacerbated in the ED, switch pain medication to 0.25 mg of Dilaudid for moderate pain, 0.5 mg for severe pain -If pain improves return back to home regimen of tramadol and oxycodone (9) Abnormal vaginal bleeding: Plan: - Transvaginal ultrasound was not useful due to empty bladder from sahu -CT abdomen and pelvis shows possible sub mucosal fibroid -However, patient does not want any procedure to further help make a diagnosis -Appreciate Gynecology -No further bleeds (10) PAD (peripheral artery disease): Plan: -Hold aspirin and Plavix in the setting of active bleed -Hold pentoxifylline (11) Hx of right BKA: Plan: - Secondary to PAD as above (12) Hypertension: Plan: - Hold amlodipine given soft blood pressures in emergency department (13) Acute encephalopathy: Plan: acute on chronic encephalopathy, now resolved. Patient back to her baseline most likely delirium on top of dementia PRN haldol for agitation Plan Disposition: continue hospitalization, Pt is a bed hold at [facility] and plan to return there DVT prophylaxis: Contraindicated in active bleed Diet: Heart healthy with low-sodium CODE STATUS: DNR/DNI as discussed with patient. Admission and Anticipated Discharge Date Admission Date: May 07, 2023 Subjective patient seen and examined, more awake and alert, tolerating regular diet, still on high flow oxygen, sitting at the edge of the bed Review of Systems Review of Systems: All systems reviewed are negative, apart from the ones contained in the history. Physical Exam Physical Exam: The patient is awake, still on high flow oxygen HEENT--PERRL, EOMI, mucous membranes and oropharynx mildly dry Neck--supple. No JVD. No bruits. Thyroid normal, trachea midline, no adenopathy. Heart--normal S1 and S2. No murmurs, rubs or gallops. Lungs--reduced air entry, crackles Abdomen--normal bowel sounds and soft. Extremities--Right BKA Dermatologic--normal skin turgor, normal color, no abnormal lymph nodes, no rash. Neurologic--cranial nerves II through XII grossly intact. Rheumatologic--normal range of motion. Psychiatric--normal affect. Results & Data Results & Data Vital Signs (Past 12 Hours) Vital Signs Temp Pulse Pulse Resp BP Pulse Ox O2 Del Method 05/12/23 11:20 98.4 F 73 18 196/78 H 91 High Flow Nasal Cannula 05/12/23 11:33 179/70 H 05/12/23 11:02 77 20 96 High Flow Nasal Cannula 05/12/23 08:00 65 05/12/23 08:00 Nasal Cannula 05/12/23 07:47 97.7 F 75 19 190/66 H 91 Room Air 05/12/23 07:15 79 20 97 High Flow Nasal Cannula 05/12/23 04:10 97.9 F 82 22 195/66 H 90 High Flow Nasal Cannula 05/12/23 02:18 20 92 High Flow Nasal Cannula O2 Flow Rate FiO2 05/12/23 11:20 30 05/12/23 11:33 05/12/23 11:02 30 60 05/12/23 08:00 05/12/23 08:00 30 05/12/23 07:47 05/12/23 07:15 30 70 05/12/23 04:10 30 05/12/23 02:18 30 70 PG Care Time/CCT Total # of Minutes Spent Total Time Spent with Patient: Total time spent is greater than 50% in coordination of care (as documented) at patient's floor/unit and/or counseling patient: Coding Level of Care Code 38001 SUB INP/OBS CARE 235MIN Diagnoses Acute and chronic respiratory failure J96.20 Severe sepsis A41.9; R65.20 UTI (urinary tract infection) N39.0 Acute blood loss anemia D62 Iron deficiency E61.1 Chronic obstructive pulmonary disease J44.9 Diabetes E11.9 Chronic pain G89.4 Chronic pain type: chronic pain syndrome Abnormal vaginal bleeding N93.9 PAD (peripheral artery disease) I73.9 Hx of right BKA Z89.511 Hypertension I10 Acute encephalopathy G93.40 Time Spent (min) 35 (8) Chronic pain Chronic pain type: chronic pain syndrome Qualified Code(s): G89.4 - Chronic pain syndrome
[2023-05-12] MEDS: MELATONIN 3 MG TAB PO PRN (20:32)
[2023-05-12] MEDS: ATORVASTATIN 40 MG TAB PO SCH (20:32)
[2023-05-13] MEDS: ALBUT/IPRATROP 3MG/0.5MG NEB 3 ML VIAL NEB PRN (07:15)
[2023-05-13 07:22] LABS: Hemoglobin 9.6 g/dl (12.0-16.0); Mean Corpuscular Hemoglobin 23.2 pg (25.0-34.0); Mean Corpuscular Volume 77.5 fL (80.0-100.0); Platelet Count 167 K/uL (130-400); RDW Coefficient of Variation 26.5 % (11.5-14.5); RDW Standard Deviation 69.1 fL (36.4-46.3); Red Blood Count 4.13 M/uL (4.20-5.40); White Blood Count 13.97 K/ul (4.8-10.8)
[2023-05-13 07:42] LABS: BUN Creatinine Ratio 19.7 (10-20); Calcium 8.9 mg/dl (8.6-10.3); Creatinine Clr Calc Pharmacy 49.2 ml/min; Est GFR (African American) 85.9 ml/min; Est GFR (Non-African American) 74.1 ml/min; Potassium 3.7 mmol/L (3.5-5.1)
[2023-05-13] MEDS: NICOTINE 14 MG/24 HR PATCH TD SCH (08:12)
[2023-05-13] MEDS: CITALOPRAM 20 MG TAB PO SCH ×2 (08:13→08:33)
[2023-05-13] MEDS: DOCUSATE SODIUM/SENNA 50/8.6MG TAB PO SCH ×2 (08:13→08:33)
[2023-05-13] MEDS: CEFEPIME 2,000 MG in SYRINGE 0 ML IV SCH ×2 (08:13→21:40)
[2023-05-13 10:16] LABS: iSTAT Allen Test Pass; iSTAT Art Bld Gas pCO2 Correct 35 mmHg (35-46); iSTAT Arterial Blood Gas HCO3 24 meg/L (19-24); iSTAT Arterial Blood Gas pCO2 35 mmHg (35-46); iSTAT Arterial Blood Gas pH 7.45 (7.35-7.45); iSTAT Arterial Blood Gas pO2 44 mmHg (80-95); iSTAT Arterial Blood Gas pO2 C 44; iSTAT Carbon Dioxide 25 mmol/L (24-31); iSTAT Hematocrit 31 % (37-47); iSTAT Hemoglobin 10.5 g/dl (12.0-16.0); iSTAT Potassium 3.6 mmol/L (3.3-5.0); iSTAT Site L Radial; iSTAT Sodium 139 mmol/L (135-144)
--- NOTE | 2023-05-13 10:16 | Communication Note ---
Date of Service: May 13, 2023 Palliative Medicine Brief Note Acacia is feeling better, more awake and alert. She is clear about not wanting more evaluation, testing or procedures. She elects return to [facility] and wants a focus on comfort and QOL She does not want hospice right now but acknowledges there may be a time in the future where she feels they are more needed for her comfort. I will sign off. There are no acute or urgent IP Pall med needs at this time. I was asked to see pt for goals of care which have been clarified/reaffirmed y pt. She has decisional capacity and her rationale for decisions is sound. No Charge submitted. Thank you for allowing us to participate in the ongoing care of this patient. Please don't hesitate to call or page with any additional concerns. Dr. Cat Marquez DNP Director, Palliative Care
--- NOTE | 2023-05-13 10:20 | CT Scan Report ---
CT OF THE HEAD WITHOUT CONTRAST CLINICAL HISTORY: Lethargic. COMPARISON STUDY: Head CT May 20, 2021. TECHNIQUE: Helical axial images of the head were obtained without IV contrast. Automated exposure con trol was utilized for the study. A dose lowering technique was utilized adhering to the principles o f ALARA. FINDINGS: No acute intracranial hemorrhage, midline shift or mass effect is present. White matter hyp odensities favor small vessel disease. The ventricular system is unremarkable. The basal cisterns are patent. No extra-axial collections are present. There are no findings to suggest acute dural sinus t hrombosis or acute territorial infarct. No significant calvarial abnormalities are present. Visualize d portions of the sinuses and mastoid air cells are clear. IMPRESSION: No acute intracranial findings. ACT 112: Negative or not required by law. Electronically signed by: Parish Vinson M.D. 05/13/2023 10:18 AM
--- NOTE | 2023-05-13 11:41 | CT Scan Report ---
CT chest diagnostic wo con CLINICAL HISTORY: follow up for pna TECHNIQUE: Multidetector row helical CT of the chest was performed. Coronal and sagittal reformations were obtained. Automated dose lowering techniques and/or adjustment according to patient size were u tilized for this exam. CT DOSE: 2232.79 mGy.cm Comparison: Comparison is made to CT chest 07/11/2021 and chest radiograph 05/07/2023 FINDINGS: Lungs and pleura: There is a 28 x 24 mm density in the left lower lung (series 10 image 118) previous ly measured 12 mm. Atelectasis is noted. There is a small left pleural effusion. Heart and pericardium: Heart size is normal. No pericardial effusion. Vessels: Unremarkable. Mediastinum and tony: Numerous mediastinal lymph nodes measure up to 13 mm. Chest wall and lower neck: Unremarkable. Abdomen: Patient is status post cholecystectomy. Bones: Degenerative changes in the thoracic spine. IMPRESSION: 1. Density in the left lower lobe is seen which likely represents a focus of pneumonia. Continued fo llow-up to resolution is recommended to exclude underlying mass. 2. Reactive mediastinal lymphadenopathy. 3. Trace left pleural effusion. ACT 112: Negative or not required by law. Electronically signed by: Ralph Meier M.D. 05/13/2023 11:40 AM
--- NOTE | 2023-05-13 11:44 | Hospitalist Progress Note ---
Date of Service May 13, 2023 Assessment & Plan (1) Acute and chronic respiratory failure: Plan: Patient is an 82-year-old female with a past medical history of right LISA due to PAD, nicotine dependence, COPD, DM 2, htn and carotid stenosis who presents to the hospital for evaluation of hypoxia. Work-up thus far has revealed blood loss anemia secondary to abnormal vaginal bleeding and severe sepsis likely due to urinary tract infection and or multifocal Pneumonia. -Acute hypoxemic respiratory failure secondary to multifocal Pneumonia on top of chronic COPD -Chest x ray and CT showed evidence of multilobar Pneumonia -Still on high flow oxygen, goal saturation of 88 to 92%. Weaned down to 10L from a high of 35L -WBC improving, patient feels better -Blood cultures negative so far, MRSA swab is negative -Continue IV cefepime, discontinue Vancomycin -Duonebs PRN -Wean as tolerated (2) Severe sepsis: Plan: -SIRS criteria of leukocytosis, hypotension, and end-organ damage plus likely u rinary and pulmonary source making criteria for severe sepsis -Now resolving -Urinalysis positive for leukocyte esterase, blood, and white blood cells. -Blood cultures and urine cultures collected, negative so far -Sahu catheter placed for accurate I's and O's -Continue IV antibiotics, Cefepime (3) UTI (urinary tract infection): Plan: - As above (4) Acute blood loss anemia: Plan: -Likely secondary to vaginal bleeding, possibly from a submucosal fibroid in the setting of aspirin and Plavix use -Hb stable following transfusion of 2 units of blood (5) Iron deficiency: Plan: -previously noted low total iron and ferritin -in addition to blood products above, added venofer infusions, 200mg daily x5 days (6) Chronic obstructive pulmonary disease: Plan: -11-vdpc-cnsv smoker and continues to smoke -Nicotine patch applied -Typically takes Combivent as needed but does not have any maintenance inhalers per my chart review -For now make DuoNeb scheduled every every 4 hour, consider adding maintenance inhalers (7) Diabetes: Plan: -Not on any medications at home -Diet controlled -Typically would order A1c but given acute anemia with transfusion, this will be inaccurate (8) Chronic pain: Plan: - 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 -Seems to be exacerbated in the ED, switch pain medication to 0.25 mg of Dilaudid for moderate pain, 0.5 mg for severe pain -If pain improves return back to home regimen of tramadol and oxycodone (9) Abnormal vaginal bleeding: Plan: - Transvaginal ultrasound was not useful due to empty bladder from sahu -CT abdomen and pelvis shows possible sub mucosal fibroid -However, patient does not want any procedure to further help make a diagnosis -Appreciate Gynecology -No further bleeds (10) PAD (peripheral artery disease): Plan: -Hold aspirin and Plavix in the setting of active bleed -Hold pentoxifylline (11) Hx of right BKA: Plan: - Secondary to PAD as above (12) Hypertension: Plan: - Hold amlodipine given soft blood pressures in emergency department (13) Acute encephalopathy: Plan: acute on chronic encephalopathy, now resolved. Patient back to her baseline most likely delirium on top of dementia PRN haldol for agitation Plan Disposition: continue hospitalization, Pt is a bed hold at [facility] and plan to return therewhen medically stable DVT prophylaxis: Contraindicated in active bleed Diet: Heart healthy with low-sodium CODE STATUS: DNR/DNI as discussed with patient. Admission and Anticipated Discharge Date Admission Date: May 07, 2023 Subjective patient seen and examined, more awake and alert, tolerating regular diet, still on high flow oxygen, sitting at the edge of the bed, weaned down to 10L from 30L Review of Systems Review of Systems: All systems reviewed are negative, apart from the ones contained in the history. Physical Exam Physical Exam: The patient is awake, still on high flow oxygen HEENT--PERRL, EOMI, mucous membranes and oropharynx mildly dry Neck--supple. No JVD. No bruits. Thyroid normal, trachea midline, no adenopathy. Heart--normal S1 and S2. No murmurs, rubs or gallops. Lungs--reduced air entry, crackles Abdomen--normal bowel sounds and soft. Extremities--Right BKA Dermatologic--normal skin turgor, normal color, no abnormal lymph nodes, no rash. Neurologic--cranial nerves II through XII grossly intact. Rheumatologic--normal range of motion. Psychiatric--normal affect. Results & Data Results & Data Vital Signs (Past 12 Hours) Vital Signs Temp Pulse Pulse Resp BP Pulse Ox O2 Del Method 05/13/23 11:15 98.2 F 70 20 160/77 H 97 High Flow Nasal Cannula 05/13/23 08:00 80 05/13/23 08:00 High Flow Nasal Cannula 05/13/23 07:34 98.8 F 75 20 169/73 H 94 High Flow Nasal Cannula 05/13/23 07:15 74 20 94 High Flow Nasal Cannula 05/13/23 03:32 82 20 89 L High Flow Nasal Cannula 05/13/23 03:00 97.9 F 74 18 182/76 H 91 High Flow Nasal Cannula 05/13/23 00:00 77 O2 Flow Rate FiO2 05/13/23 11:15 10 05/13/23 08:00 05/13/23 08:00 10 05/13/23 07:34 30 05/13/23 07:15 30 50 05/13/23 03:32 30 45 05/13/23 03:00 05/13/23 00:00 PG Care Time/CCT Total # of Minutes Spent Total Time Spent with Patient: Total time spent is greater than 50% in coordination of care (as documented) at patient's floor/unit and/or counseling patient: Coding Level of Care Code 03292 SUB INP/OBS CARE 2/35MIN Diagnoses Acute and chronic respiratory failure J96.20 Severe sepsis A41.9; R65.20 UTI (urinary tract infection) N39.0 Acute blood loss anemia D62 Iron deficiency E61.1 Chronic obstructive pulmonary disease J44.9 Diabetes E11.9 Chronic pain G89.4 Chronic pain type: chronic pain syndrome Abnormal vaginal bleeding N93.9 PAD (peripheral artery disease) I73.9 Hx of right BKA Z89.511 Hypertension I10 Acute encephalopathy G93.40 Time Spent (min) 35 (8) Chronic pain Chronic pain type: chronic pain syndrome Qualified Code(s): G89.4 - Chronic pain syndrome
[2023-05-14] MEDS: DOCUSATE SODIUM/SENNA 50/8.6MG TAB PO SCH ×3 (03:49→19:58)
[2023-05-14] MEDS: ATORVASTATIN 40 MG TAB PO SCH (03:49)
[2023-05-14] MEDS: NICOTINE 14 MG/24 HR PATCH TD SCH (08:12)
[2023-05-14] MEDS: CEFEPIME 2,000 MG in SYRINGE 0 ML IV SCH ×2 (08:12→21:32)
[2023-05-14] MEDS: CITALOPRAM 20 MG TAB PO SCH (08:13)
[2023-05-14 08:31] LABS: Hematocrit (blood only) 32.1 % (37.0-47.0); Hemoglobin 9.7 g/dl (12.0-16.0); Mean Corpuscular Hemoglobin 23.8 pg (25.0-34.0); Mean Corpuscular Hgb Conc 30.2 g/dL (32.0-36.0); Mean Corpuscular Volume 78.7 fL (80.0-100.0); Mean Platelet Volume 10.5 fL (9.4-12.4); Platelet Count 148 K/uL (130-400); RDW Standard Deviation 76.2 fL (36.4-46.3); Red Blood Count 4.08 M/uL (4.20-5.40); White Blood Count 14.87 K/ul (4.8-10.8)
[2023-05-14 08:41] LABS: BUN Creatinine Ratio 21.5 (10-20); Calcium 8.9 mg/dl (8.6-10.3); Creatinine Clr Calc Pharmacy 45.4 ml/min; Est GFR (African American) 81.9 ml/min; Est GFR (Non-African American) 70.7 ml/min; Potassium 3.4 mmol/L (3.5-5.1)
[2023-05-14] MEDS ORDERED: LORazepam 2 MG/1 ML VIAL IV PRN (12:29)
[2023-05-14] MEDS ORDERED: haloperidoL 1 MG TAB PO PRN (12:29)
--- NOTE | 2023-05-14 12:39 | Palliative Care Progress Note ---
Date of Service May 14, 2023 Assessment & Plan (1) Cancer related pain: Plan: Acacia is aware of worsening condition, CT finding of lung mass progression and has chosen to focus on comfort. She does not want any more workup, labs or testing. (2) Dyspnea and respiratory abnormalities: Plan: multifacted due to COPD, likely lung cancer, acute hypox resp failure from PNA (3) Weakness generalized: (4) Palliative care by specialist: (5) Advanced care planning/counseling discussion: Plan: I met with Acacia at bedside for a 45min face to face ACP conversation. She is aware there is enlargement of her lung mass. She also knows her breathing is worsening and she is having more chest pressure/fullness and pain in her right chest and upper back area consistent with suspected bony mets. She does not want aggressive care. She states she wants to go back to her [facility] and be comfortable. She is not afraid of dying but is clear she does not want to suffer. She states she is in a lot of pain and breathing has been at times a struggle. She wants to be comfortable. We spoke about her current O2 needs and that it cannot be met at SNF. We spoke about moving to a comfort plan of care in the hospital which if we can get her comfortably down to a lower flow rate trash man then help move her back to SNF. I told her I am worried she may not have much time left and she acknowledged feeling the same. She wants her pain and dyspnea improved. We spoke about comfort care in the hospital and that she may before we can return her to SNF. She states that is ok if that is what has to happen. I asked her if there was anyone I could call for her and she replied No. I asked her if she wanted me to call her son and she replied "no, he knows what's going on." We spoke about comfort care meds and how to manage symptoms. I advised I would order IV meds for now and titrate doses as needed. She tells me she is not afraid to but she is worried about suffering. I reassured her we would have meds available on demand for her to help limit and prevent any distress. We spoke about if she felt she had anything or anyone she wanted to have closure with and she replied no. A temple marker consult is ordered as part of comfort care protocol for more psychosocial and spiritual support. I updated nursing and primary team. (6) Encounter for end of life care: Plan * ACP as noted above * She desires comfort care and orders written * I have updated primary team and nursing * She may this admission, her resp distress and symptom intensity is increasing. * I will be out of office beginning tomorrow through next . Dr Montana will be covering. Thank you for allowing us to participate in the ongoing care of this patient. Please don't hesitate to call or page with any additional concerns. Dr. Cat Marquez DNP Director, Palliative Care Admission and Anticipated Discharge Date Admission Date: May 07, 2023 Subjective urgent re engagement requested by primary team pt does not want further medical interventions, testing or treatment. She is asking to return [facility]. She is on 14lpm oxygen and this has been a limiting factor for penitentiary O2 modalities. she is seen today at bedside, no family present She tells me she is in pain she is short of breath and at times feeling like it is a struggle to breath; she has acute hypoxemic respiratory failure secondary to multifocal pneumonia + chronic COPD, CT this admission shows increasing lung mass - she and family are aware and she has been and continues to now decline further investigation she states she is not comfortable. she does not want to be in hospital or pursue aggressive care she states she wants to be comfortable and is aware she is getting worse she tells me she isn't afraid to but does fear pain and suffering she asks why she can't go back to her home (penitentiary) Review of Systems Review of Systems: All systems reviewed & are unremarkable except as noted in Subjective Physical Exam Physical Exam: elderly female, side lying, in resp distress and grimacing bitemp wasting inc effort with conversational dyspnea use of accessory muscles noted diminished breath sounds with scatt rhonchi tachy s1s2, no gross JVD color pale, skin cool abd soft, no guarding, BS diminished rle amputation, +LLE with venous insuff changes she is awake and alert to self and place, year is 2022 [facility] delirium screen negative Results & Data Vital Signs (Past 12 Hours) Vital Signs Temp Pulse Pulse Resp BP BP Pulse Ox 05/14/23 11:29 37.9 C H 73 20 190/71 H 93 05/14/23 07:00 77 05/14/23 07:00 05/14/23 07:10 36.5 C 70 20 155/54 H 98 05/14/23 03:45 36.6 C 71 18 155/67 H 98 O2 Del Method O2 Flow Rate 05/14/23 11:29 Nasal Cannula 12 05/14/23 07:00 05/14/23 07:00 Nasal Cannula 15 05/14/23 07:10 High Flow Nasal Cannula 14 05/14/23 03:45 Free Flow/Blow-by 10 Laboratory Results data reviewed Diagnostic Findings CT Chest: ADDENDUM: There is a 2.8 x 2.4 cm mass lesion in the left lower lobe seen on image #118. This has significantly increased in size from 07/11/2021 and a lung cancer is the diagnosis of exclusion. Bulky mediastinal lymphadenopathy is nonspecific and likely represents metastatic disease. There is a 1.5 x 1.0 cm pathologically enlarged left supraclavicular lymph node image #29. A destructive bony lesion in the right scapula on image #106 is also typical for osseous metastatic disease. This is new from 2020. No additional destructive bony lesions are clearly identified. IMPRESSION: 1. Left lower lobe lung mass, significantly increased in size from 07/11/2021. This should be considered lung cancer until proven otherwise. 2. Bulky mediastinal lymphadenopathy as well as pathologic left supraclavicular lymphadenopathy is highly suspicious for metastatic disease. 3. A bony metastasis is identified in the right scapula. PG Care Time/CCT Total # of Minutes Spent Total Time Spent: 85 Total Time Spent with Patient: Total time spent is greater than 50% in coordination of care (as documented) at patient's floor/unit and/or counseling patient: I spent 85 minutes overall addressing this case: 5 in medical data review/discussion with referring provider(s) and/or preparation for the visit 20 in direct interaction with the patient 45 Advance Care Planning/Goals of Care discussions as detailed above in note (must be >16min) 5 in subsequent review and synthesis of assessment and plan 10 in communicating with other providers regarding the patient's case: [] Advanced Care Planning 35633 Advanced Care Planning 30 Min [place] [address] SUB INP/OBS CARE 3/50MIN Patient Type Established History Comprehensive Exam Comprehensive Medical Decision Making High Complexity Diagnoses Cancer related pain G89.3 Dyspnea and respiratory abnormalities R06.00; R06.89 Weakness generalized R53.1 Palliative care by specialist Z51.5 Advanced care planning/counseling discussion Z71.89 Encounter for end of life care Z51.5 Additional Codes Advanced Care Planning - 06410 Advanced Care Planning 30 Min: 24777 Advanced Care Planning 30 Min ([id number])
[2023-05-14] MEDS: MoRPHine SULFATE 10 MG/0.5 ML UDP PO PRN ×2 (12:57→18:19)
[2023-05-14] MEDS ORDERED: POTASSIUM CHLORIDE CRTAB 20 MEQ TABCR PO STA (13:04)
[2023-05-14] MEDS ORDERED: VANCOMYCIN HCL 1,250 MG in SODIUM CHLORIDE 0.9% 500 ML IV ONE (19:59)
[2023-05-14] MEDS ORDERED: VANCOMYCIN CONSULT ACTIVE PRN (19:59)
[2023-05-14] MEDS ORDERED: VANCOMYCIN HCL 1,250 MG in SODIUM CHLORIDE 0.9% 250 ML IV SCH (21:00)
--- NOTE | 2023-05-15 00:12 | Hospitalist Progress Note ---
Date of Service May 14, 2023 Assessment & Plan (1) Acute and chronic respiratory failure: Plan: Patient is an 82-year-old female with a past medical history of right LISA due to PAD, nicotine dependence, COPD, DM 2, htn and carotid stenosis who presents to the hospital for evaluation of hypoxia. Work-up thus far has revealed blood loss anemia secondary to abnormal vaginal bleeding and severe sepsis likely due to urinary tract infection and or multifocal Pneumonia. -Acute hypoxemic respiratory failure secondary to multifocal Pneumonia on top of chronic COPD -Chest x ray and CT showed evidence of multilobar Pneumonia -Still on high flow oxygen, goal saturation of 88 to 92%. Weaned down to 10L from a high of 35L -WBC improving, patient feels better -Blood cultures negative so far, MRSA swab is negative -Continue IV cefepime, discontinue Vancomycin -Duonebs PRN -Wean as tolerated Concerned that patient may not improve. Perhaps patient has an post obstrctive pneumonia from her lung mass. Viewing the trend of her WBC, this has been worsening, Also patient is now having a fever. Will resume vancomycin, this had been discontinued earlier in the hospital stay due to negative MRSA. Though WBC was not improving while taking vancomycin. continue cefepime. Will consult pulmonary, prognosis is guarded. (2) Severe sepsis: Plan: -SIRS criteria of leukocytosis, hypotension, and end-organ damage plus likely urinary and pulmonary source making criteria for severe sepsis -Now resolving -Urinalysis positive for leukocyte esterase, blood, and white blood cells. -Blood cultures and urine cultures collected, negative so far -Sahu catheter placed for accurate I's and O's -Continue IV antibiotics, Cefepime (3) UTI (urinary tract infection): Plan: - As above (4) Acute blood loss anemia: Plan: -Likely secondary to vaginal bleeding, possibly from a submucosal fibroid in the setting of aspirin and Plavix use -Hb stable following transfusion of 2 units of blood (5) Iron deficiency: Plan: -previously noted low total iron and ferritin -in addition to blood products above, added venofer infusions, 200mg daily x5 days (6) Chronic obstructive pulmonary disease: Plan: -[id number] smoker and continues to smoke -Nicotine patch applied -Typically takes Combivent as needed but does not have any maintenance inhalers per my chart review -For now make DuoNeb scheduled every every 4 hour, consider adding maintenance inhalers (7) Diabetes: Plan: -Not on any medications at home -Diet controlled -Typically would order A1c but given acute anemia with transfusion, this will be inaccurate (8) Chronic pain: Plan: - 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 -Seems to be exacerbated in the ED, switch pain medication to 0.25 mg of Dilaudid for moderate pain, 0.5 mg for severe pain -If pain improves return back to home regimen of tramadol and oxycodone (9) Abnormal vaginal bleeding: Plan: - Transvaginal ultrasound was not useful due to empty bladder from sahu -CT abdomen and pelvis shows possible sub mucosal fibroid -However, patient does not want any procedure to further help make a diagnosis -Appreciate Gynecology -No further bleeds (10) PAD (peripheral artery disease): Plan: -Hold aspirin and Plavix in the setting of active bleed -Hold pentoxifylline (11) Hx of right BKA: Plan: - Secondary to PAD as above (12) Hypertension: Plan: - Hold amlodipine given soft blood pressures in emergency department (13) Acute encephalopathy: Plan: acute on chronic encephalopathy, now resolved. Patient back to her baseline most likely delirium on top of dementia PRN haldol for agitation Plan Disposition: continue hospitalization, Pt is a bed hold at [facility] and plan to return therewhen medically stable DVT prophylaxis: Contraindicated in active bleed Diet: Heart healthy with low-sodium CODE STATUS: DNR/DNI as discussed with patient. Admission and Anticipated Discharge Date Admission Date: May 07, 2023 Subjective Had multiple vistiis with patient. Patient had discussed with palliative care, and had transitioned to comfort measures as she reported she did not want any intervention done for her likley pulmonary cancer.. However, during my last visit, patient stated she would like to see if she can get better. Updated her daughter in law, 2 sons: Yazan and Titus separately and a family memeber who is a nurse. As per nurse patient has beeen intermittently confused, but has had periods of being lucid. As per palliative care provider, patient was lucid during her visit. Review of Systems Review of Systems: All systems reviewed & are unremarkable except as noted in HPI & below Physical Exam Physical Exam: The patient is awake, still on high flow oxygen HEENT--PERRL, EOMI, mucous membranes and oropharynx mildly dry Neck--supple. No JVD. No bruits. Thyroid normal, trachea midline, no adenopathy. Heart--normal S1 and S2. No murmurs, rubs or gallops. Lungs--reduced air entry, crackles Abdomen--normal bowel sounds and soft. Extremities--Right BKA Dermatologic--normal skin turgor, normal color, no abnormal lymph nodes, no rash. Neurologic--cranial nerves II through XII grossly intact. Rheumatologic--normal range of motion. Psychiatric--normal affect. Results & Data Results & Data Vital Signs (Past 12 Hours) Vital Signs O2 Del Method O2 Flow Rate 05/14/23 20:00 Free Flow/Blow-by 6 PG Care Time/CCT Total # of Minutes Spent Total Time Spent with Patient: Total time spent is greater than 50% in coordination of care (as documented) at patient's floor/unit and/or counseling patient: Prolonged Care Time Prolonged Care Time: Yes Total Prolonged Care Time: 120 18:30 to 20:30 Coding Level of Care Code 30227 SUB INP/OBS CARE 3/50MIN (25 - SIGNIFICANT, SEPARATELY IDENTIFIABLE ) Diagnoses Acute and chronic respiratory failure J96.20 Severe sepsis A41.9; R65.20 UTI (urinary tract infection) N39.0 Acute blood loss anemia D62 Iron deficiency E61.1 Chronic obstructive pulmonary disease J44.9 Diabetes E11.9 Chronic pain G89.4 Chronic pain type: chronic pain syndrome Abnormal vaginal bleeding N93.9 PAD (peripheral artery disease) I73.9 Hx of right BKA Z89.511 Hypertension I10 Acute encephalopathy G93.40 Additional Codes Prolonged Care Time - Prolonged Care Time: Yes ([id number]) Time Spent (min) 120 (8) Chronic pain Chronic pain type: chronic pain syndrome Qualified Code(s): G89.4 - Chronic pain syndrome
[2023-05-15 07:44] LABS: Creatinine Clr Calc Pharmacy 44.9 ml/min; Est GFR (African American) 80.7 ml/min; Est GFR (Non-African American) 69.6 ml/min
--- NOTE | 2023-05-15 07:59 | Pulmonology Progress Note ---
Date of Service May 15, 2023 Assessment & Plan Admission and Anticipated Discharge Date Admission Date: May 07, 2023 Results & Data Results & Data Vital Signs (Past 12 Hours) Vital Signs O2 Del Method O2 Flow Rate 05/15/23 07:50 Nasal Cannula 6 05/14/23 20:00 Free Flow/Blow-by 6 PG Care Time/CCT Total # of Minutes Spent Total Time Spent with Patient: Total time spent is greater than 50% in coordination of care (as documented) at patient's floor/unit and/or counseling patient: Coding Diagnoses
[2023-05-15] MEDS: CEFEPIME 2,000 MG in SYRINGE 0 ML IV SCH ×2 (08:48→21:39)
[2023-05-15] MEDS: DOCUSATE SODIUM/SENNA 50/8.6MG TAB PO SCH ×2 (08:50→21:39)
--- NOTE | 2023-05-15 08:57 | Pulmonary Consultation ---
Date of Consultation May 15, 2023 Assessment & Plan (1) History of tobacco use: (2) Emphysema lung: (3) Hx of right BKA: (4) Acute and chronic respiratory failure: (5) LAD (lymphadenopathy), mediastinal: (6) Pulmonary nodule: (7) Abnormal chest CT: Plan CT chest 05/13/2023 personally reviewed: Centrilobular and paraseptal emphysema appreciated bilaterally Left lower lobe pleural-based 2.4 x 2.8 cm nodule Significant mediastinal lymphadenopathy with elevated right hemidiaphragm PFT 08/15/2021: Significant bronchodilator response with no obstructive lung dysfunction, normal TLC, severe decrease in DLCO FVC 2.01 L 74%, FEV1 1.60 L 82%, FEV1/FVC 81%, RV 80%, TLC 80%, RV/TLC 99%, DLCO 36%, DLCO/VA 56% --Left lower lobe pulmonary nodule 2.4 x 2.8 cm, previously 1.1 cm in 07/2021 Likely malignancy Patient likely has lung cancer 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 --COPD with emphysema Only on Combivent at home Recommend Anoro on discharge Brovana, budesonide and Incruse while in the hospital Plan: Patient is 82 years old with multiple comorbidities, patient was very clear about her wishes of not pursuing diagnosis and treatment for if she had lung cancer or any cancer. Right now we are at the stage that it has most likely metastasized to the bone. Given the current status I do not think she will be a candidate for chemo or radiation therapy. I think approaching a palliative care route would be of the best interest and appropriate thing to do. This was relayed to patient's daughter as well as [id number], who are in agreement. They requested me to talk to patient's son Yazan and Titus I did try to give them a call but unfortunately had to leave a voicemail Overall prognosis unfortunately is guarded. Pulmonary will continue to follow Please note the above document was generated using voice recognition software. It may contain grammatical, syntax or spelling errors.Any formal questions or concerns about the content, text or information contained within the body of this dictation should be directly addressed to the provider for clarification. History of Present Illness Attending Physician: [place] History of Present Illness 82-year-old female coming to the hospital for shortness of breath and hypoxia Past medical history: COPD, diabetes type 2, hypertension, carotid stenosis Pulmonary consulted for abnormal chest CT Patient follows up with Dr. Carrasco, he saw the patient last on 07/24/2021 At the time of examination patient's granddaughter, [id number] were in the room data patient was saturating 84-85% on room air. She was waxing and waning when it comes to her mentation. She was able to answer questions appropriately but seems to be withdrawn. Denied any chest pain. Did complain of shortness of breath while stating that nobody is doing anything for her. Other statement which she made is that we () do what ever we want irrespective of her wishes. I tried to explain to her in the best way possible that ultimate decision is always patient's She denied any diarrhea, no abdominal pain. Poor appetite Did complain of headache. No blurry vision No nausea vomiting Allergies Allergy/AdvReac Type Severity Reaction Status Date / Time benzoyl peroxide Allergy Severe Rash Verified 12/17/22 06:31 lorazepam [From Ativan] Allergy Mild Flushed, Verified 12/17/22 06:31 elevated BP, skin burning Home Medications Medication Instructions Recorded Confirmed Type acetaminophen 325 mg tablet 650 mg PO Q6 PRN fever/pain 08/29/21 05/07/23 History (Tylenol) aspirin 81 mg tablet,delayed 81 mg PO 3XWK 08/29/21 05/07/23 History release (Elias Low Dose Aspirin) atorvastatin 40 mg tablet 40 mg PO QPM 08/29/21 05/07/23 History clopidogrel 75 mg tablet 75 mg PO DAILY 08/29/21 05/07/23 History phenylephrine 0.25 %-pramoxine 1 1 applic MA Q6 PRN Hemorrhoids 08/29/21 05/07/23 History %-glycerin-wh.petrolatum rectal cream (Preparation H Maximum Strength) vit C 250 mg-E 90 mg-zinc 40 1 tab PO BID 06/20/22 05/07/23 History mg-copper 1 om-hlamyx-[id number] chew tablet (PreserVision AREDS-2) citalopram 10 mg tablet 20 mg PO DAILY 08/01/22 05/07/23 History amlodipine 10 mg tablet 10 mg PO QAM 10/21/22 05/07/23 History oxycodone 5 mg tablet 5 mg PO Q6H PRN Pain 11/25/22 05/07/23 History pentoxifylline 400 mg 400 mg PO TID 11/25/22 05/07/23 History tablet,extended release Abh Gel 1 applic topical AMHS 05/07/23 05/07/23 History aluminum-mag hydroxide-simethicone 30 ml PO Q6 PRN Indigestion 05/07/23 05/07/23 History 400 mg-400 mg-40 mg/5 mL oral susp (Maalox Maximum Strength) dextran 70-hypromellose eye drops 1 drp ophthalmic (eye) Q4 PRN mild 05/07/23 05/07/23 History in a dropperette (Artificial Tears dry eye (PF) drops in a dropperette) guaifenesin 600 mg tablet, 600 mg PO Q12H PRN mucous 05/07/23 05/07/23 History extended release 12 hr ipratropium 20 mcg-albuterol 100 1 puff inhalation Q6H PRN 05/07/23 05/07/23 History mcg/actuation mist for inhalation SOB/WHEEZE (Combivent Respimat) ketoconazole 2 % topical cream 1 applic topical BID PRN flares 05/07/23 05/07/23 History ondansetron HCl 4 mg tablet 4 mg PO Q6H PRN nausea/vomiting 05/07/23 05/07/23 History povidone-iodine 10 % topical 1 applic topical .EVERY EVENING 05/07/23 05/07/23 History solution (Betadine) SHIFT sennosides 8.6 mg-docusate sodium 1 tab-cap PO AMHS 05/07/23 05/07/23 History 50 mg tablet (Senokot-S) tramadol 50 mg tablet 100 mg PO Q6H PRN pain 5-8 05/07/23 05/07/23 History Patient History Medical History (Updated 05/15/23 @ 15:03 by Jimy Acosta [facility], [facility]) Altered mental status Carotid stenosis, asymptomatic s/p Left carotid endarterectomy (7 years ago) 70-79% Left CEA with fibrofatty plaque and 70-79% restenosis per 10/2022 carotid duplex Chronic obstructive pulmonary disease CKD (chronic kidney disease) Diabetes Dysphagia Metabolic encephalopathy Hx correction resident Osteomyelitis Hx PAD (peripheral artery disease) PVD (peripheral vascular disease) Solitary pulmonary nodule Surgical History (Updated 12/17/22 @ 14:55 by Trae Silver PA-C) History of carotid endarterectomy Left carotid endarterectomy (7 years ago) History of cataract surgery R/L Right (10/28/22): MAC at [facility] [place] Hx of angiography B/L LE angiogram 09/13/22 [place] Angiogram with stent left external iliac artery Hx of right BKA Social History Smoking Status: Former smoker Tobacco Type: Cigarettes Do You Dip or Chew Tobacco: No; Hx Alcohol Use: No Hx Substance Use: No Preferred Language: Japanese Communication Ability: Unable Binding End Stitcher Required: No Beliefs That Will Affect Care: None marital status: / Current Living Situation: Personal Care Facility How many Children do You have: 2 Other Information That Helps Us Care for You: No Feels Safe at Home: Yes Assistive Devices: Prosthesis and Walker Review of Systems Review of Systems: All systems reviewed & are unremarkable except as noted in HPI & below Physical Exam Physical Exam: Constitutional: No acute distress HEENT: EOMI, PERRLA Respiratory system: Decreased air entry bilaterally, no wheeze, rhonchi, positive crackles bilateral lower lobes CVS: S1-S2 positive, no murmurs or gallops, accentuated P2 Abdomen: Soft, nontender, nondistended, positive bowel sounds x4 Extremities: +2 pulses bilaterally radialis/ dorsalis pedis, no cyanosis, +1 pitting edema Neuro: Awake alert oriented x3 Psych: Normal mood and affect G/U: Positive Casanova Skin: no rashes, warm and dry Lymphatic: no cervical or axillary lymphadenopathy Results & Data Results & Data Vital Signs (Past 12 Hours) Vital Signs O2 Del Method O2 Flow Rate 05/15/23 07:50 Nasal Cannula 6 Laboratory Results 05/14/23 07:46 05/15/23 06:52 PG Care Time/CCT Total # of Minutes Spent Total Time Spent with Patient: Total time spent is greater than 50% in coordination of care (as documented) at patient's floor/unit and/or counseling patient: Coding Level of Care Code 50453 INT INP/OBS CARE MIN Diagnoses History of tobacco use Z87.891 Emphysema lung J43.9 Hx of right BKA Z89.511 Acute and chronic respiratory failure J96.20 LAD (lymphadenopathy), mediastinal R59.0 Pulmonary nodule R91.[address] R93.89
--- NOTE | 2023-05-15 10:05 | Pharmacy Report ---
Pharmacy PK ABX Note - Date of Service May 15, 2023 - Assessment and Plan Assessment 82 year old F receiving vancomycin and cefepime empirically for treatment of possible pneumonia w/ history of MRSA infection. Pertinent microbiologic data includes: MRSA nasal swab NEGATIVE, blood cultures x 2 show no growth (finalized), urine culture shows no growth. Day # 1 of antimicrobial therapy. Persistent leukocytosis, Febrile @ 37.9 C on 05/14/23. Plan Vancomycin * Loading dose: 1250 mg IV x 1 * Maintenance dose: 1000 mg IV every 18 hours * Regimen is predicted to achieve target AUC/WARREN of 400-600 mg/L.hr * Random tomorrow morning to ensure adequate dosing Cefepime * 2 g IV q12h - appropriate for pulmonary infection based on today's estimated CrCl Pharmacy will continue to follow and will adjust dose/frequency as necessary. Thank you. Pharmacy has transitioned to AUC monitoring for vancomycin. AUC/WARREN is the preferred PK/PD target and is associated with decreased risk of nephrotoxicity compared to traditional trough targets.
[2023-05-15] MEDS: NICOTINE 14 MG/24 HR PATCH TD SCH (11:37)
[2023-05-15] MEDS: VANCOMYCIN HCL 1,000 MG in SODIUM CHLORIDE 0.9% 250 ML IV SCH (12:20)
[2023-05-15] MEDS: UMECLIDINIUM BROMIDE 62.5MCG/BLISTER 7 PUFFS/INHALER INH SCH (15:43)
[2023-05-15 17:07] LABS: Albumin Level 3.3 gm/dl (3.4-5.0); Bilirubin Direct 0.1 mg/dl (0-0.2); Bilirubin,Total 0.5 mg/dl (0.2-1.0); C Reactive Protein 2.84 mg/dl (0-0.5); Magnesium 1.9 mg/dl (1.7-2.4); Phosphorus 1.8 mg/dl (2.5-4.9); Potassium 3.6 mmol/L (3.5-5.1); Total Protein 5.9 gm/dl (6.0-8.3)
[2023-05-15 17:25] LABS: Anisocytosis Present; Basophils # (auto) 0.05 K/uL (0.00-0.20); Basophils % (auto) 0.3 %; Eosinophils # (auto) 0.38 K/uL (0.00-0.50); Eosinophils % (auto) 2.4 %; Hematocrit (blood only) 31.4 % (37.0-47.0); Hemoglobin 9.5 g/dl (12.0-16.0); Immature Granulocytes # (auto) 0.24 K/uL (0.01-0.20); Immature Granulocytes % (auto) 1.5 %; Lymphocytes # (auto) 1.07 K/uL (1.20-3.40); Lymphocytes % (auto) 6.6 %; Mean Corpuscular Hemoglobin 24.2 pg (25.0-34.0); Mean Corpuscular Hgb Conc 30.3 g/dL (32.0-36.0); Mean Corpuscular Volume 79.9 fL (80.0-100.0); Monocytes # (auto) 1.17 K/uL (0.11-0.59); Monocytes % (auto) 7.3 %; Neutrophils # (auto) 13.22 K/uL (1.40-6.50); Neutrophils % (auto) 81.9 %; Platelet Count 142 K/uL (130-400); Polychromasia 1+; RDW Standard Deviation 79.7 fL (36.4-46.3); Red Blood Count 3.93 M/uL (4.20-5.40); White Blood Count 16.13 K/ul (4.8-10.8)
[2023-05-15] MEDS: BUDESONIDE 0.25 MG/2 ML VIAL (PULMICORT) NEB SCH (19:46)
[2023-05-15] MEDS: FORMOTEROL 20 MCG/2 ML VIAL INH SCH (19:46)
[2023-05-15 22:08] LABS: Appearance Urine Turbid (Clear); Bacteria Urine Automated Negative (Negative); Bilirubin Urine Negative (Negative); Blood Urine 2+ (Negative); Color Urine Yellow; Epithelial Cell Urine Auto >30 /lpf (0-5); Glucose Urine UA Negative (Negative); Ketones Urine Trace (Negative); Leukocyte Esterase Urine Negative (Negative); Nitrite Urine Negative (Negative); Protein Urine 2+ (Negative); Specific Gravity Urine 1.021 (1.000-1.030); Urobilinogen Urine Negative (Negative); pH Urine 5.5 (4.5-7.5)
--- NOTE | 2023-05-15 22:27 | XRay Report ---
KUB CLINICAL HISTORY: Fever. FINDINGS: AP, portable, supine abdominal radiograph is correlated with abdominal CT dated 05/07/2023. Cholecystectomy clips are noted in the right upper quadrant. Iliac stents are in place. There is no b owel obstruction. No evidence of intraperitoneal free air is seen on this supine image. There are no abnormal abdominal calcifications. The skeletal structures are osteopenic. There is advanced lumbosac ral spondylosis and scoliosis. Arthritic change is observed in the hips. IMPRESSION: No acute abnormality is identified. Electronically signed by: Dmitry Cherry M.D. 05/15/2023 10:26 PM
--- NOTE | 2023-05-15 22:30 | Hospitalist Progress Note ---
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 Work-up thus far has revealed blood loss anemia secondary to abnormal vaginal bleeding and severe sepsis likely due to urinary tract infection and or multifocal Pneumonia. -Acute hypoxemic respiratory failure secondary to multifocal Pneumonia on top of chronic COPD -Chest x ray and CT showed evidence of multilobar Pneumonia -Still on high flow oxygen, goal saturation of 88 to 92%. Weaned down to 10L from a high of 35L -WBC improving, patient feels better -Blood cultures negative so far, MRSA swab is negative -Continue IV cefepime, discontinue Vancomycin -Duonebs PRN -Wean as tolerated Concerned that patient may not improve. Perhaps patient has an post obstrctive pneumonia from her lung mass. Viewing the trend of her WBC, this has been worsening, Also patient is now having a fever. Will resume vancomycin, this had been discontinued earlier in the hospital stay due to negative MRSA. Though WBC was not improving while taking vancomycin. continue cefepime. Will consult pulmonary, prognosis is guarded. ON 05/15 Patient opted against chemo and radiation. Appreciate input form pulmonary. (2) Severe sepsis: Plan: -SIRS criteria of leukocytosis, hypotension, and end-organ damage plus likely urinary and pulmonary source making criteria for severe sepsis -Now resolving -Urinalysis positive for leukocyte esterase, blood, and white blood cells. -Blood cultures and urine cultures collected, negative so far -Sahu catheter placed for accurate I's and O's -Continue IV antibiotics, Cefepime (3) UTI (urinary tract infection): Plan: - As above (4) Acute blood loss anemia: Plan: -Likely secondary to vaginal bleeding, possibly from a submucosal fibroid in the setting of aspirin and Plavix use -Hb stable following transfusion of 2 units of blood (5) Iron deficiency: Plan: -previously noted low total iron and ferritin -in addition to blood products above, added venofer infusions, 200mg daily x5 days (6) Chronic obstructive pulmonary disease: Plan: -[id number] smoker and continues to smoke -Nicotine patch applied -Typically takes Combivent as needed but does not have any maintenance inhalers per my chart review -For now make DuoNeb scheduled every every 4 hour, consider adding maintenance inhalers (7) Diabetes: Plan: -Not on any medications at home -Diet controlled -Typically would order A1c but given acute anemia with transfusion, this will be inaccurate (8) Chronic pain: Plan: - 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 -Seems to be exacerbated in the ED, switch pain medication to 0.25 mg of Dilaudid for moderate pain, 0.5 mg for severe pain -If pain improves return back to home regimen of tramadol and oxycodone (9) Abnormal vaginal bleeding: Plan: - Transvaginal ultrasound was not useful due to empty bladder from sahu -CT abdomen and pelvis shows possible sub mucosal fibroid -However, patient does not want any procedure to further help make a diagnosis -Appreciate Gynecology -No further bleeds (10) PAD (peripheral artery disease): Plan: -Hold aspirin and Plavix in the setting of active bleed -Hold pentoxifylline (11) Hx of right BKA: Plan: - Secondary to PAD as above (12) Hypertension: Plan: - Hold amlodipine given soft blood pressures in emergency department (13) Acute encephalopathy: Plan: acute on chronic encephalopathy, now resolved. Patient back to her baseline most likely delirium on top of dementia PRN haldol for agitation Plan Disposition: continue hospitalization, Pt is a bed hold at [facility] and plan to return therewhen medically stable DVT prophylaxis: Contraindicated in active bleed Diet: Heart healthy with low-sodium CODE STATUS: DNR/DNI as discussed with patient. Admission and Anticipated Discharge Date Admission Date: May 07, 2023 Subjective 82 yo female reports she no longer wants chemo or radiation. Patient states she is feeling better today. Review of Systems Review of Systems: All systems reviewed & are unremarkable except as noted in HPI & below Physical Exam Physical Exam: The patient is awake, still on high flow oxygen HEENT--PERRL, EOMI, mucous membranes and oropharynx mildly dry Neck--supple. No JVD. No bruits. Thyroid normal, trachea midline, no adenopathy. Heart--normal S1 and S2. No murmurs, rubs or gallops. Lungs--reduced air entry, crackles Abdomen--normal bowel sounds and soft. Extremities--Right BKA Dermatologic--normal skin turgor, normal color, no abnormal lymph nodes, no rash. Neurologic--cranial nerves II through XII grossly intact. Rheumatologic--normal range of motion. Psychiatric--normal affect. Results & Data Results & Data Vital Signs (Past 12 Hours) Vital Signs Temp Pulse Pulse Resp BP Pulse Ox O2 Del Method 05/15/23 20:22 36.6 C 64 18 159/84 H 95 High Flow Nasal Cannula 05/15/23 19:46 66 18 89 L Nasal Cannula 05/15/23 15:36 36.6 C 73 18 160/66 H 89 L Nasal Cannula 05/15/23 11:12 36.4 C L 76 17 183/73 H 89 L High Flow Nasal Cannula O2 Flow Rate 05/15/23 20:22 4 05/15/23 19:46 4 05/15/23 15:36 5 05/15/23 11:12 15 PG Care Time/CCT Total # of Minutes Spent Total Time Spent with Patient: Total time spent is greater than 50% in coordination of care (as documented) at patient's floor/unit and/or counseling patient: Coding Level of Care Code 99789 SUB INP/OBS CARE 2/35MIN Diagnoses Acute and chronic respiratory failure J96.20 Severe sepsis A41.9; R65.20 UTI (urinary tract infection) N39.0 Acute blood loss anemia D62 Iron deficiency E61.1 Chronic obstructive pulmonary disease J44.9 Diabetes E11.9 Chronic pain G89.4 Chronic pain type: chronic pain syndrome Abnormal vaginal bleeding N93.9 PAD (peripheral artery disease) I73.9 Hx of right BKA Z89.511 Hypertension I10 Acute encephalopathy G93.40 (8) Chronic pain Chronic pain type: chronic pain syndrome Qualified Code(s): G89.4 - Chronic pain syndrome
[2023-05-16] MEDS ORDERED: VANCOMYCIN LEVEL ONE (05:30)
[2023-05-16] MEDS: VANCOMYCIN HCL 1,000 MG in SODIUM CHLORIDE 0.9% 250 ML IV SCH (06:50)
[2023-05-16] MEDS: FORMOTEROL 20 MCG/2 ML VIAL INH SCH ×2 (06:57→20:13)
[2023-05-16] MEDS: ALBUT/IPRATROP 3MG/0.5MG NEB 3 ML VIAL NEB PRN (06:57)
[2023-05-16] MEDS: BUDESONIDE 0.25 MG/2 ML VIAL (PULMICORT) NEB SCH ×2 (06:57→20:13)
[2023-05-16 07:22] LABS: Hematocrit (blood only) 29.3 % (37.0-47.0); Mean Corpuscular Hemoglobin 24.5 pg (25.0-34.0); Mean Corpuscular Hgb Conc 30.7 g/dL (32.0-36.0); Mean Corpuscular Volume 79.6 fL (80.0-100.0); Platelet Count 125 K/uL (130-400); RDW Standard Deviation 78.5 fL (36.4-46.3); Red Blood Count 3.68 M/uL (4.20-5.40); White Blood Count 13.93 K/ul (4.8-10.8)
[2023-05-16 07:32] LABS: BUN Creatinine Ratio 20.3 (10-20); Calcium 8.6 mg/dl (8.6-10.3); Creatinine Clr Calc Pharmacy 46.1 ml/min; Est GFR (African American) 81.9 ml/min; Est GFR (Non-African American) 70.7 ml/min; Potassium 3.4 mmol/L (3.5-5.1)
--- NOTE | 2023-05-16 07:34 | Pulmonology Progress Note ---
Date of Service May 16, 2023 Assessment & Plan (1) History of tobacco use: (2) Emphysema lung: (3) Hx of right BKA: (4) Acute and chronic respiratory failure: (5) LAD (lymphadenopathy), mediastinal: (6) Pulmonary nodule: (7) Abnormal chest CT: Plan CT chest 05/13/2023 personally reviewed: Centrilobular and paraseptal emphysema appreciated bilaterally Left lower lobe pleural-based 2.4 x 2.8 cm nodule Significant mediastinal lymphadenopathy with elevated right hemidiaphragm Bilateral lower lobe infiltrate seems to be getting better compared to CT abdomen pelvis 05/07/2023 PFT 08/15/2021: Significant bronchodilator response with no obstructive lung dysfunction, normal TLC, severe decrease in DLCO FVC 2.01 L 74%, FEV1 1.60 L 82%, FEV1/FVC 81%, RV 80%, TLC 80%, RV/TLC 99%, DLCO 36%, DLCO/VA 56% --Left lower lobe pulmonary nodule 2.4 x 2.8 cm, previously 1.1 cm in 07/2021 Likely malignancy Patient likely has lung cancer 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 --Bilateral lower lobe pneumonia Seems to be improving on the latest CT chest in 05/13/2023 Complete the course of antibiotics for total of 10 days --COPD with emphysema Only on Combivent at home Recommend Anoro on discharge Brovana, budesonide and Incruse while in the hospital Plan: Patient is 82 years old with multiple comorbidities, patient was very clear about her wishes of not pursuing diagnosis and treatment for if she had lung cancer or any cancer. Right now we are at the stage that it has most likely metastasized to the bone. Given the current status I do not think she will be a candidate for chemo or radiation therapy. I think approaching a palliative care route would be of the best interest and appropriate thing to do. This was relayed to patient's daughter as well as [id number], who are in agreement. They requested me to talk to patient's son Yazan and Titus I was able to speak with patient's son Yazan on the phone as well on 05/15/2023 All questions inquiries of the patient's family were answered in depth Overall prognosis unfortunately is guarded. Please note the above document was generated using voice recognition software. It may contain grammatical, syntax or spelling errors.Any formal questions or concerns about the content, text or information contained within the body of this dictation should be directly addressed to the provider for clarification. Admission and Anticipated Discharge Date Admission Date: May 07, 2023 Subjective Patient seen and examined at bedside. No acute distress, no adverse events overnight She was in a pleasant mood today. Stated that the breathing is okay. Gets easily short of breath on minimal exertion Denies any cough. Fair appetite Denies any nausea or vomiting No headache Patient was saturating 89-90% on 5 L nasal cannula at rest Review of Systems Review of Systems: All systems reviewed & are unremarkable except as noted in Subjective Physical Exam Physical Exam: Constitutional: No acute distress HEENT: EOMI, PERRLA Respiratory system: Decreased air entry bilaterally, no wheeze, rhonchi, positiv e crackles bilateral lower lobes CVS: S1-S2 positive, no murmurs or gallops, accentuated P2 Abdomen: Soft, nontender, nondistended, positive bowel sounds x4 Extremities: +2 pulses bilaterally radialis/left dorsalis pedis, no cyanosis, +1 pitting edema left lower extremity, right BKA Neuro: Awake alert oriented x3 Psych: Normal mood and affect G/U: Positive Casanova Skin: no rashes, warm and dry Lymphatic: no cervical or axillary lymphadenopathy Results & Data Results & Data Vital Signs (Past 12 Hours) Vital Signs Temp Pulse Pulse Pulse Resp BP Pulse Ox 05/16/23 06:59 77 18 90 05/16/23 03:15 36.5 C 65 18 177/71 H 90 05/15/23 23:46 71 05/15/23 23:28 36.5 C 70 16 174/73 H 93 05/15/23 20:00 05/15/23 20:22 36.6 C 64 18 159/84 H 95 05/15/23 19:46 66 18 89 L O2 Del Method O2 Flow Rate 05/16/23 06:59 Room Air 05/16/23 03:15 High Flow Nasal Cannula 4 05/15/23 23:46 05/15/23 23:28 High Flow Nasal Cannula 4 05/15/23 20:00 Nasal Cannula 5 05/15/23 20:22 High Flow Nasal Cannula 4 05/15/23 19:46 Nasal Cannula 4 Laboratory Results 05/16/23 06:43 05/16/23 06:43 PG Care Time/CCT Total # of Minutes Spent Total Time Spent with Patient: Total time spent is greater than 50% in coordination of care (as documented) at patient's floor/unit and/or counseling patient: Coding Level of Care Code 64206 SUB INP/OBS CARE 3/50MIN Diagnoses History of tobacco use Z87.891 Emphysema lung J43.9 Hx of right BKA Z89.511 Acute and chronic respiratory failure J96.20 LAD (lymphadenopathy), mediastinal R59.0 Pulmonary nodule R91.[address] R93.89
--- NOTE | 2023-05-16 07:55 | Pharmacy Report ---
Pharmacy PK ABX Note - Date of Service May 16, 2023 - Assessment and Plan Assessment 82 year old F receiving vancomycin and cefepime empirically for treatment of possible pneumonia w/ history of MRSA infection. Pertinent microbiologic data includes: MRSA nasal swab NEGATIVE, blood cultures x 2 show no growth (finalized), urine culture shows no growth. Day # 3 of antimicrobial therapy. Persistent leukocytosis, Febrile @ 37.9 C on 05/14/23. Plan Vancomycin * Loading dose: 1250 mg IV x 1 (given 05/14/23) * Maintenance dose: 1000 mg IV every 18 hours * Regimen is predicted to achieve target AUC/WARREN of 400-600 mg/L.hr --> level this AM (prior to steady state) indicates regimen effective * Recheck level if continued > 48 hours Cefepime * 2 g IV q12h - appropriate for pulmonary infection based on today's estimated CrCl Pharmacy will continue to follow and will adjust dose/frequency as necessary. Thank you. Pharmacy has transitioned to AUC monitoring for vancomycin. AUC/WARREN is the preferred PK/PD target and is associated with decreased risk of nephrotoxicity compared to traditional trough targets.
[2023-05-16] MEDS: UMECLIDINIUM BROMIDE 62.5MCG/BLISTER 7 PUFFS/INHALER INH SCH (08:04)
[2023-05-16] MEDS: NICOTINE 14 MG/24 HR PATCH TD SCH (08:05)
[2023-05-16] MEDS: CEFEPIME 2,000 MG in SYRINGE 0 ML IV SCH ×2 (08:09→22:52)
[2023-05-16] MEDS: DOCUSATE SODIUM/SENNA 50/8.6MG TAB PO SCH ×2 (12:04→22:53)
[2023-05-16] MEDS ORDERED: POTASSIUM PHOS 3 MMOL/1 ML INFUSION IV STA (18:50)
[2023-05-16] MEDS ORDERED: POTASSIUM PHOSPHATE 21 MMOL in SODIUM CHLORIDE 0.9% 500 ML IV ONE (19:30)
[2023-05-16] MEDS: ACETAMINOPHEN 325 MG TAB PO PRN (20:11)
[2023-05-16] MEDS: MELATONIN 3 MG TAB PO PRN (22:52)
--- NOTE | 2023-05-16 23:28 | Hospitalist Progress Note ---
Date of Service May 16, 2023 Assessment & Plan (1) Acute and chronic respiratory failure: Plan: Patient is an 82-year-old female with a past medical history of right LISA due to PAD, nicotine dependence, COPD, DM 2, htn and carotid stenosis who presents to the hospital for evaluation of hypoxia. Work-up thus far has revealed blood loss anemia secondary to abnormal vaginal bleeding and severe sepsis likely due to urinary tract infection and or multifocal Pneumonia. -Acute hypoxemic respiratory failure secondary to multifocal Pneumonia on top of chronic COPD -Chest x ray and CT showed evidence of multilobar Pneumonia -Still on high flow oxygen, goal saturation of 88 to 92%. Weaned down to 10L from a high of 35L -Blood cultures negative so far, MRSA swab is negative Concerned that patient may not improve to the point where we can bring her to centre care. WBC initally improved but has been worseneing as of late. Also patient is now having a fever. Will resume vancomycin, this had been discontinued earlier in the hospital stay due to negative MRSA. Though WBC was not improving while taking vancomycin. continue cefepime. Will consult pulmonary, prognosis is guarded. ON 05/15 Patient opted against chemo and radiation. Appreciate input form pulmonary. Patient appears stable on 05/16 (2) Severe sepsis: Plan: -SIRS criteria of leukocytosis, hypotension, and end-organ damage plus likely urinary and pulmonary source making criteria for severe sepsis -Now resolving -Urinalysis positive for leukocyte esterase, blood, and white blood cells. -Blood cultures and urine cultures collected, negative so far -Sahu catheter placed for accurate I's and O's -Continue IV antibiotics, Cefepime (3) UTI (urinary tract infection): Plan: - As above (4) Acute blood loss anemia: Plan: -Likely secondary to vaginal bleeding, possibly from a submucosal fibroid in the setting of aspirin and Plavix use -Hb stable following transfusion of 2 units of blood (5) Iron deficiency: Plan: -previously noted low total iron and ferritin -in addition to blood products above, added venofer infusions, 200mg daily x5 days (6) Chronic obstructive pulmonary disease: Plan: -31-frul-aiml smoker and continues to smoke -Nicotine patch applied -Typically takes Combivent as needed but does not have any maintenance inhalers per my chart review -For now make DuoNeb scheduled every every 4 hour, consider adding maintenance inhalers (7) Diabetes: Plan: -Not on any medications at home -Diet controlled -Typically would order A1c but given acute anemia with transfusion, this will be inaccurate (8) Chronic pain: Plan: - 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 -Seems to be exacerbated in the ED, switch pain medication to 0.25 mg of Dilaudid for moderate pain, 0.5 mg for severe pain -If pain improves return back to home regimen of tramadol and oxycodone (9) Abnormal vaginal bleeding: Plan: - Transvaginal ultrasound was not useful due to empty bladder from sahu -CT abdomen and pelvis shows possible sub mucosal fibroid -However, patient does not want any procedure to further help make a diagnosis -Appreciate Gynecology -No further bleeds (10) PAD (peripheral artery disease): Plan: -Hold aspirin and Plavix in the setting of active bleed -Hold pentoxifylline (11) Hx of right BKA: Plan: - Secondary to PAD as above (12) Hypertension: Plan: - Hold amlodipine given soft blood pressures in emergency department (13) Acute encephalopathy: Plan: acute on chronic encephalopathy, now resolved. Patient back to her baseline most likely delirium on top of dementia PRN haldol for agitation Plan Disposition: continue hospitalization, Pt is a bed hold at [facility] and plan to return therewhen medically stable DVT prophylaxis: Contraindicated in active bleed Diet: Heart healthy with low-sodium CODE STATUS: DNR/DNI as discussed with patient. Admission and Anticipated Discharge Date Admission Date: May 07, 2023 Subjective Patient reports no new symptoms. She appears comfortable. Family is at bedside. Review of Systems Review of Systems: All systems reviewed & are unremarkable except as noted in HPI & below Physical Exam Physical Exam: The patient is awake, still on high flow oxygen HEENT--PERRL, EOMI, mucous membranes and oropharynx mildly dry Neck--supple. No JVD. No bruits. Thyroid normal, trachea midline, no adenopathy. Heart--normal S1 and S2. No murmurs, rubs or gallops. Lungs--reduced air entry, crackles Abdomen--normal bowel sounds and soft. Extremities--Right BKA Dermatologic--normal skin turgor, normal color, no abnormal lymph nodes, no rash. Neurologic--cranial nerves II through XII grossly intact. Rheumatologic--normal range of motion. Psychiatric--normal affect. Results & Data Results & Data Vital Signs (Past 12 Hours) Vital Signs Temp Pulse Resp BP Pulse Ox O2 Del Method O2 Flow Rate 05/16/23 22:24 36.5 C 68 14 175/72 H 87 L Nasal Cannula 05/16/23 20:42 37.4 C 69 18 155/85 H 92 Nasal Cannula 05/16/23 20:14 69 20 94 Nasal Cannula 8 05/16/23 16:00 36.6 C 67 20 163/67 H 90 Nasal Cannula 8 PG Care Time/CCT Total # of Minutes Spent Total Time Spent with Patient: Total time spent is greater than 50% in coordination of care (as documented) at patient's floor/unit and/or counseling patient: Coding Level of Care Code 03914 SUB INP/OBS CARE 2/35MIN Diagnoses Acute and chronic respiratory failure J96.20 Severe sepsis A41.9; R65.20 UTI (urinary tract infection) N39.0 Acute blood loss anemia D62 Iron deficiency E61.1 Chronic obstructive pulmonary disease J44.9 Diabetes E11.9 Chronic pain G89.4 Chronic pain type: chronic pain syndrome Abnormal vaginal bleeding N93.9 PAD (peripheral artery disease) I73.9 Hx of right BKA Z89.511 Hypertension I10 Acute encephalopathy G93.40 (8) Chronic pain Chronic pain type: chronic pain syndrome Qualified Code(s): G89.4 - Chronic pain syndrome
[2023-05-17] MEDS: VANCOMYCIN HCL 1,000 MG in SODIUM CHLORIDE 0.9% 250 ML IV SCH (03:45)
[2023-05-17] MEDS: FORMOTEROL 20 MCG/2 ML VIAL INH SCH ×2 (06:58→19:57)
[2023-05-17] MEDS: BUDESONIDE 0.25 MG/2 ML VIAL (PULMICORT) NEB SCH ×2 (06:58→19:57)
[2023-05-17 07:42] LABS: Hematocrit (blood only) 29.9 % (37.0-47.0); Mean Corpuscular Hemoglobin 24.4 pg (25.0-34.0); Mean Corpuscular Hgb Conc 30.1 g/dL (32.0-36.0); Platelet Count 127 K/uL (130-400); RDW Coefficient of Variation 28.8 % (11.5-14.5); RDW Standard Deviation 81.4 fL (36.4-46.3); Red Blood Count 3.69 M/uL (4.20-5.40)
[2023-05-17 07:59] LABS: BUN Creatinine Ratio 20.2 (10-20); C Reactive Protein 3.69 mg/dl (0-0.5); Calcium 8.6 mg/dl (8.6-10.3); Creatinine Clr Calc Pharmacy 43.3 ml/min; Est GFR (African American) 76.1 ml/min; Est GFR (Non-African American) 65.6 ml/min; Potassium 3.7 mmol/L (3.5-5.1)
[2023-05-17] MEDS: UMECLIDINIUM BROMIDE 62.5MCG/BLISTER 7 PUFFS/INHALER INH SCH (07:59)
[2023-05-17] MEDS: NICOTINE 14 MG/24 HR PATCH TD SCH (08:01)
[2023-05-17] MEDS: CEFEPIME 2,000 MG in SYRINGE 0 ML IV SCH ×2 (08:06→20:39)
[2023-05-17] MEDS: DOCUSATE SODIUM/SENNA 50/8.6MG TAB PO SCH ×2 (08:06→20:39)
--- NOTE | 2023-05-17 09:01 | Pulmonology Progress Note ---
Date of Service May 17, 2023 Assessment & Plan (1) History of tobacco use: (2) Emphysema lung: (3) Hx of right BKA: (4) Acute and chronic respiratory failure: (5) LAD (lymphadenopathy), mediastinal: (6) Pulmonary nodule: (7) Abnormal chest CT: Plan CT chest 05/13/2023 personally reviewed: Centrilobular and paraseptal emphysema appreciated bilaterally Left lower lobe pleural-based 2.4 x 2.8 cm nodule Significant mediastinal lymphadenopathy with elevated right hemidiaphragm Bilateral lower lobe infiltrate seems to be getting better compared to CT abdomen pelvis 05/07/2023 PFT 08/15/2021: Significant bronchodilator response with no obstructive lung dysfunction, normal TLC, severe decrease in DLCO FVC 2.01 L 74%, FEV1 1.60 L 82%, FEV1/FVC 81%, RV 80%, TLC 80%, RV/TLC 99%, DLCO 36%, DLCO/VA 56% --Left lower lobe pulmonary nodule 2.4 x 2.8 cm, previously 1.1 cm in 07/2021 Likely malignancy Patient likely has lung cancer 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 --Bilateral lower lobe pneumonia Seems to be improving on the latest CT chest in 05/13/2023 Complete the course of antibiotics for total of 10 days --COPD with emphysema Only on Combivent at home Recommend Anoro on discharge Brovana, budesonide and Incruse while in the hospital Plan: Patient is 82 years old with multiple comorbidities, patient was very clear about her wishes of not pursuing diagnosis and treatment for if she had lung cancer or any cancer. Right now we are at the stage that it has most likely metastasized to the bone. Given the current status I do not think she will be a candidate for chemo or radiation therapy. I think approaching a palliative care route would be of the best interest and appropriate thing to do. This was relayed to patient's daughter as well as [id number], who are in agreement. They requested me to talk to patient's son Yazan and Titus I was able to speak with patient's son Yazan on the phone as well on 05/15/2023 Overall prognosis unfortunately is guarded. No further recommendation from pulmonary perspective, will sign off Please call directly with any questions Please note the above document was generated using voice recognition software. It may contain grammatical, syntax or spelling errors.Any formal questions or concerns about the content, text or information contained within the body of this dictation should be directly addressed to the provider for clarification. Admission and Anticipated Discharge Date Admission Date: May 07, 2023 Subjective Patient seen and examined at bedside. No acute distress, no adverse events overnight. Patient was in pleasant mood today. Did complain of shortness of breath on exertion. Denied any headache No nausea vomiting Did have breakfast today. Review of Systems Review of Systems: All systems reviewed & are unremarkable except as noted in Subjective Physical Exam Physical Exam: Constitutional: No acute distress HEENT: EOMI, PERRLA Respiratory system: Decreased air entry bilaterally, no wheeze, rhonchi, positive crackles bilateral lower lobes CVS: S1-S2 positive, no murmurs or gallops, accentuated P2 Abdomen: Soft, nontender, nondistended, positive bowel sounds x4 Extremities: +2 pulses bilaterally radialis/left dorsalis pedis, no cyanosis, +1 pitting edema left lower extremity, right BKA Neuro: Awake alert oriented to self and place Psych: Normal mood and affect G/U: Positive Casanova Skin: no rashes, warm and dry Lymphatic: no cervical or axillary lymphadenopathy Results & Data Results & Data Vital Signs (Past 12 Hours) Vital Signs Temp Pulse Pulse Resp BP Pulse Ox O2 Del Method 05/17/23 07:06 36.7 C 64 19 184/68 H 98 Nasal Cannula 05/17/23 07:00 77 18 93 Nasal Cannula 05/17/23 02:39 36.5 C 61 18 125/84 94 Nasal Cannula 05/16/23 23:00 67 05/16/23 22:24 36.5 C 68 14 175/72 H 87 L Nasal Cannula O2 Flow Rate 05/17/23 07:06 05/17/23 07:00 8 05/17/23 02:39 05/16/23 23:00 05/16/23 22:24 Laboratory Results 05/17/23 07:07 05/17/23 07:07 PG Care Time/CCT Total # of Minutes Spent Total Time Spent with Patient: Total time spent is greater than 50% in coordination of care (as documented) at patient's floor/unit and/or counseling patient: Coding Level of Care Code 27015 SUB INP/OBS CARE 2MIN Diagnoses History of tobacco use Z87.891 Emphysema lung J43.9 Hx of right BKA Z89.511 Acute and chronic respiratory failure J96.20 LAD (lymphadenopathy), mediastinal R59.0 Pulmonary nodule R91.[address] R93.89
[2023-05-17] MEDS: MoRPHine SULFATE 2 MG/ML CARP IV PRN (19:06)
--- NOTE | 2023-05-17 23:29 | Hospitalist Progress Note ---
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 Work-up thus far has revealed blood loss anemia secondary to abnormal vaginal bleeding and severe sepsis likely due to urinary tract infection and or multifocal Pneumonia. -Acute hypoxemic respiratory failure secondary to multifocal Pneumonia on top of chronic COPD -Chest x ray and CT showed evidence of multilobar Pneumonia -Still on high flow oxygen, goal saturation of 88 to 92%. Weaned down to 10L from a high of 35L -Blood cultures negative so far, MRSA swab is negative Concerned that patient may not improve to the point where we can bring her to centre care. WBC initally improved but has been worseneing as of late. Also patient is now having a fever. Will resume vancomycin, this had been discontinued earlier in the hospital stay due to negative MRSA. Though WBC was not improving while taking vancomycin. continue cefepime. Will consult pulmonary, prognosis is guarded. ON 05/15 Patient opted against chemo and radiation. Appreciate input form pulmonary. Patient appears stable on 05/16 -05/17 (2) Severe sepsis: Plan: -SIRS criteria of leukocytosis, hypotension, and end-organ damage plus likely urinary and pulmonary source making criteria for severe sepsis -Now resolving -Urinalysis positive for leukocyte esterase, blood, and white blood cells. -Blood cultures and urine cultures collected, negative so far -Sahu catheter placed for accurate I's and O's -Continue IV antibiotics, Cefepime (3) UTI (urinary tract infection): Plan: - As above (4) Acute blood loss anemia: Plan: -Likely secondary to vaginal bleeding, possibly from a submucosal fibroid in the setting of aspirin and Plavix use -Hb stable following transfusion of 2 units of blood (5) Iron deficiency: Plan: -previously noted low total iron and ferritin -in addition to blood products above, added venofer infusions, 200mg daily x5 days (6) Chronic obstructive pulmonary disease: Plan: -[id number] smoker and continues to smoke -Nicotine patch applied -Typically takes Combivent as needed but does not have any maintenance inhalers per my chart review -For now make DuoNeb scheduled every every 4 hour, consider adding maintenance inhalers (7) Diabetes: Plan: -Not on any medications at home -Diet controlled -Typically would order A1c but given acute anemia with transfusion, this will be inaccurate (8) Chronic pain: Plan: - 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 -Seems to be exacerbated in the ED, switch pain medication to 0.25 mg of Dilaudid for moderate pain, 0.5 mg for severe pain -If pain improves return back to home regimen of tramadol and oxycodone (9) Abnormal vaginal bleeding: Plan: - Transvaginal ultrasound was not useful due to empty bladder from sahu -CT abdomen and pelvis shows possible sub mucosal fibroid -However, patient does not want any procedure to further help make a diagnosis -Appreciate Gynecology -No further bleeds (10) PAD (peripheral artery disease): Plan: -Hold aspirin and Plavix in the setting of active bleed -Hold pentoxifylline (11) Hx of right BKA: Plan: - Secondary to PAD as above (12) Hypertension: Plan: - Hold amlodipine given soft blood pressures in emergency department (13) Acute encephalopathy: Plan: acute on chronic encephalopathy, now resolved. Patient back to her baseline most likely delirium on top of dementia PRN haldol for agitation Plan Disposition: continue hospitalization, Pt is a bed hold at [facility] and plan to return therewhen medically stable DVT prophylaxis: Contraindicated in active bleed Diet: Heart healthy with low-sodium CODE STATUS: DNR/DNI as discussed with patient. Admission and Anticipated Discharge Date Admission Date: May 07, 2023 Subjective 82 yo male is sitting up comfortably. Patient thought is confused. Review of Systems Review of Systems: All systems reviewed & are unremarkable except as noted in HPI & below Physical Exam Physical Exam: The patient is awake, still on high flow oxygen HEENT--PERRL, EOMI, mucous membranes and oropharynx mildly dry Neck--supple. No JVD. No bruits. Thyroid normal, trachea midline, no adenopathy. Heart--normal S1 and S2. No murmurs, rubs or gallops. Lungs--reduced air entry, crackles Abdomen--normal bowel sounds and soft. Extremities--Right BKA Dermatologic--normal skin turgor, normal color, no abnormal lymph nodes, no rash. Neurologic--cranial nerves II through XII grossly intact. Rheumatologic--normal range of motion. Psychiatric--normal affect. Results & Data Results & Data Vital Signs (Past 12 Hours) Vital Signs Temp Pulse Pulse Pulse Resp BP Pulse Ox 05/17/23 19:00 36.6 C 68 16 175/66 H 98 05/17/23 19:59 74 18 99 05/17/23 16:00 69 05/17/23 15:48 36.7 C 69 19 190/76 H 99 O2 Del Method O2 Flow Rate 05/17/23 19:00 Nasal Cannula 05/17/23 19:59 Nasal Cannula 6 05/17/23 16:00 05/17/23 15:48 Nasal Cannula 8 PG Care Time/CCT Total # of Minutes Spent Total Time Spent with Patient: Total time spent is greater than 50% in coordination of care (as documented) at patient's floor/unit and/or counseling patient: Coding Level of Care Code 18766 SUB INP/OBS CARE 2/35MIN Diagnoses Acute and chronic respiratory failure J96.20 Severe sepsis A41.9; R65.20 UTI (urinary tract infection) N39.0 Acute blood loss anemia D62 Iron deficiency E61.1 Chronic obstructive pulmonary disease J44.9 Diabetes E11.9 Chronic pain G89.4 Chronic pain type: chronic pain syndrome Abnormal vaginal bleeding N93.9 PAD (peripheral artery disease) I73.9 Hx of right BKA Z89.511 Hypertension I10 Acute encephalopathy G93.40 (8) Chronic pain Chronic pain type: chronic pain syndrome Qualified Code(s): G89.4 - Chronic pain syndrome
[2023-05-18] MEDS: MoRPHine SULFATE 2 MG/ML CARP IV PRN (01:35)
[2023-05-18] MEDS: MoRPHine SULFATE 10 MG/0.5 ML UDP PO PRN (02:02)
[2023-05-18] MEDS: BUDESONIDE 0.25 MG/2 ML VIAL (PULMICORT) NEB SCH ×2 (07:17→19:38)
[2023-05-18] MEDS: FORMOTEROL 20 MCG/2 ML VIAL INH SCH ×2 (07:17→19:38)
[2023-05-18] MEDS: VANCOMYCIN HCL 1,000 MG in SODIUM CHLORIDE 0.9% 250 ML IV SCH (07:47)
[2023-05-18] MEDS: UMECLIDINIUM BROMIDE 62.5MCG/BLISTER 7 PUFFS/INHALER INH SCH ×2 (07:48→07:58)
[2023-05-18] MEDS: NICOTINE 14 MG/24 HR PATCH TD SCH (07:48)
[2023-05-18] MEDS: CEFEPIME 2,000 MG in SYRINGE 0 ML IV SCH ×2 (07:51→22:13)
[2023-05-18] MEDS: DOCUSATE SODIUM/SENNA 50/8.6MG TAB PO SCH ×2 (07:51→22:13)
[2023-05-18 15:47] LABS: Base Excess VBG -0.6 mEq/L; HCO3 VBG 23 mmol/L; Oxygen Saturation VBG 94.2 %; PCO2 VBG 35 mmHg (38-50); PO2 VBG 65 mmHg; pH VBG 7.43 (7.36-7.41)
[2023-05-18 15:57] LABS: Hemoglobin 8.7 g/dl (12.0-16.0); Mean Corpuscular Hemoglobin 24.6 pg (25.0-34.0); Mean Corpuscular Volume 81.9 fL (80.0-100.0); Platelet Count 142 K/uL (130-400); RDW Coefficient of Variation 28.9 % (11.5-14.5); RDW Standard Deviation 82.4 fL (36.4-46.3); Red Blood Count 3.54 M/uL (4.20-5.40); White Blood Count 14.55 K/ul (4.8-10.8)
--- NOTE | 2023-05-18 16:03 | XRay Report ---
SINGLE VIEW CHEST CLINICAL HISTORY: Hypoxia. FINDINGS: 2 AP portable, upright chest radiographs are compared to study dated 05/07/2023 and correlat ed with chest CT dated 05/13/2023. The examination is degraded by portable technique and patient rotat ion. The heart is enlarged noting atherosclerotic calcification of the thoracic aorta. There is pulmo nary vascular congestion with mild interstitial edema. Emphysematous change is similar to previous. T here is chronic elevation of the right hemidiaphragm with bibasilar scarring/atelectasis. Small pleur al effusions are suspected. The known left lower lobe lung mass seen by CT is not well visualized. Th ere is no pneumothorax. The skeletal structures are osteopenic. Cortical irregularity of the right sc apula is consistent with a known destructive bony lesion. Degenerative change is noted in the spine. Cholecystectomy clips are seen in the upper abdomen. IMPRESSION: 1. Cardiomegaly and emphysema with evidence of congestive failure and mild pulmonary edema. 2. Suspect small pleural effusions. 3. The known left basilar lung mass seen on the recent chest CT is not well visualized by x-ray. ACT 112: Negative or not required by law. Electronically signed by: Dmitry Cherry M.D. 05/18/2023 4:00 PM
[2023-05-18 16:11] LABS: Anisocytosis Present; Basophils # (auto) 0.05 K/uL (0.00-0.20); Basophils % (auto) 0.3 %; Eosinophils # (auto) 0.35 K/uL (0.00-0.50); Eosinophils % (auto) 2.4 %; Immature Granulocytes # (auto) 0.11 K/uL (0.01-0.20); Immature Granulocytes % (auto) 0.8 %; Lymphocytes # (auto) 0.78 K/uL (1.20-3.40); Lymphocytes % (auto) 5.4 %; Monocytes # (auto) 0.86 K/uL (0.11-0.59); Monocytes % (auto) 5.9 %; Neutrophils % (auto) 85.2 %; Polychromasia 1+
[2023-05-18 16:14] LABS: BUN Creatinine Ratio 18.2 (10-20); C Reactive Protein 4.29 mg/dl (0-0.5); Calcium 8.8 mg/dl (8.6-10.3); Creatinine Clr Calc Pharmacy 41.7 ml/min; Est GFR (African American) 71.9 ml/min; Est GFR (Non-African American) 62.1 ml/min; Potassium 3.5 mmol/L (3.5-5.1)
--- NOTE | 2023-05-18 17:49 | Hospitalist Progress Note ---
Date of Service May 18, 2023 Assessment & Plan (1) Acute and chronic respiratory failure: Plan: Patient is an 82-year-old female with a past medical history of right LISA due to PAD, nicotine dependence, COPD, DM 2, htn and carotid stenosis who presents to the hospital for evaluation of hypoxia. Work-up thus far has revealed blood loss anemia secondary to abnormal vaginal bleeding and severe sepsis likely due to urinary tract infection and or multifocal Pneumonia. -Acute hypoxemic respiratory failure secondary to multifocal Pneumonia on top of chronic COPD -Chest x ray and CT showed evidence of multilobar Pneumonia -Still on high flow oxygen, goal saturation of 88 to 92%. Weaned down to 10L from a high of 35L -Blood cultures negative so far, MRSA swab is negative Concerned that patient may not improve to the point where we can bring her to centre care. WBC initally improved but has been worseneing as of late. Also patient is now having a fever. Will resume vancomycin, this had been discontinued earlier in the hospital stay due to negative MRSA. Though WBC was not improving while taking vancomycin. continue cefepime. Will consult pulmonary, prognosis is guarded. ON 05/15 Patient opted against chemo and radiation. Appreciate input form pulmonary. Patient appears stable on 05/16 -05/18, however she continues to require large amount of high flow oxygen 5-10 liters. (2) Severe sepsis: Plan: -SIRS criteria of leukocytosis, hypotension, and end-organ damage plus likely urinary and pulmonary source making criteria for severe sepsis -Now resolving -Urinalysis positive for leukocyte esterase, blood, and white blood cells. -Blood cultures and urine cultures collected, negative so far -Sahu catheter placed for accurate I's and O's -Continue IV antibiotics, Cefepime (3) UTI (urinary tract infection): Plan: - As above (4) Acute blood loss anemia: Plan: -Likely secondary to vaginal bleeding, possibly from a submucosal fibroid in the setting of aspirin and Plavix use -Hb stable following transfusion of 2 units of blood (5) Iron deficiency: Plan: -previously noted low total iron and ferritin -in addition to blood products above, added venofer infusions, 200mg daily x5 days (6) Chronic obstructive pulmonary disease: Plan: -[id number] smoker and continues to smoke -Nicotine patch applied -Typically takes Combivent as needed but does not have any maintenance inhalers per my chart review -For now make DuoNeb scheduled every every 4 hour, consider adding maintenance inhalers (7) Diabetes: Plan: -Not on any medications at home -Diet controlled -Typically would order A1c but given acute anemia with transfusion, this will be inaccurate (8) Chronic pain: Plan: - 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 -Seems to be exacerbated in the ED, switch pain medication to 0.25 mg of Dilaudid for moderate pain, 0.5 mg for severe pain -If pain improves return back to home regimen of tramadol and oxycodone (9) Abnormal vaginal bleeding: Plan: - Transvaginal ultrasound was not useful due to empty bladder from sahu -CT abdomen and pelvis shows possible sub mucosal fibroid -However, patient does not want any procedure to further help make a diagnosis -Appreciate Gynecology -No further bleeds (10) PAD (peripheral artery disease): Plan: -Hold aspirin and Plavix in the setting of active bleed -Hold pentoxifylline (11) Hx of right BKA: Plan: - Secondary to PAD as above (12) Hypertension: Plan: - Hold amlodipine given soft blood pressures in emergency department (13) Acute encephalopathy: Plan: acute on chronic encephalopathy, now resolved. Patient back to her baseline most likely delirium on top of dementia PRN haldol for agitation Plan Disposition: continue hospitalization, Pt is a bed hold at [facility] and plan to return therewhen medically stable DVT prophylaxis: Contraindicated in active bleed Diet: Heart healthy with low-sodium CODE STATUS: DNR/DNI as discussed with patient. Admission and Anticipated Discharge Date Admission Date: May 07, 2023 Subjective Patient reports no new sympotms. Review of Systems Review of Systems: All systems reviewed & are unremarkable except as noted in HPI & below Physical Exam Physical Exam: The patient is awake, still on high flow oxygen HEENT--PERRL, EOMI, mucous membranes and oropharynx mildly dry Neck--supple. No JVD. No bruits. Thyroid normal, trachea midline, no adenopathy. Heart--normal S1 and S2. No murmurs, rubs or gallops. Lungs--reduced air entry, crackles Abdomen--normal bowel sounds and soft. Extremities--Right BKA Dermatologic--normal skin turgor, normal color, no abnormal lymph nodes, no rash. Neurologic--cranial nerves II through XII grossly intact. Rheumatologic--normal range of motion. Psychiatric--normal affect. Results & Data Results & Data Vital Signs (Past 12 Hours) Vital Signs Temp Pulse Pulse Resp BP Pulse Ox O2 Del Method 05/18/23 16:00 66 05/18/23 11:05 36.4 C L 62 19 155/72 H 98 High Flow Nasal Cannula 05/18/23 08:00 Free Flow/Blow-by 05/18/23 07:00 36.5 C 82 19 163/67 H 91 Nasal Cannula 05/18/23 07:39 78 20 82 L Room Air 05/18/23 07:27 71 O2 Flow Rate 05/18/23 16:00 05/18/23 11:05 6 05/18/23 08:00 8 05/18/23 07:00 6.0 05/18/23 07:39 05/18/23 07:27 PG Care Time/CCT Total # of Minutes Spent Total Time Spent with Patient: Total time spent is greater than 50% in coordination of care (as documented) at patient's floor/unit and/or counseling patient: Coding Level of Care Code 22501 SUB INP/OBS CARE 2/35MIN Diagnoses Acute and chronic respiratory failure J96.20 Severe sepsis A41.9; R65.20 UTI (urinary tract infection) N39.0 Acute blood loss anemia D62 Iron deficiency E61.1 Chronic obstructive pulmonary disease J44.9 Diabetes E11.9 Chronic pain G89.4 Chronic pain type: chronic pain syndrome Abnormal vaginal bleeding N93.9 PAD (peripheral artery disease) I73.9 Hx of right BKA Z89.511 Hypertension I10 Acute encephalopathy G93.40 (8) Chronic pain Chronic pain type: chronic pain syndrome Qualified Code(s): G89.4 - Chronic pain syndrome
[2023-05-19] MEDS ORDERED: VANCOMYCIN LEVEL ONE (03:00)
[2023-05-19 03:32] LABS: Hematocrit (blood only) 29.3 % (37.0-47.0); Hemoglobin 8.5 g/dl (12.0-16.0); Mean Corpuscular Hemoglobin 24.2 pg (25.0-34.0); Mean Corpuscular Volume 83.5 fL (80.0-100.0); Mean Platelet Volume 11.1 fL (9.4-12.4); Platelet Count 150 K/uL (130-400); RDW Standard Deviation 84.1 fL (36.4-46.3); Red Blood Count 3.51 M/uL (4.20-5.40); White Blood Count 16.53 K/ul (4.8-10.8)
[2023-05-19 03:37] LABS: BUN Creatinine Ratio 19.3 (10-20); C Reactive Protein 4.5 mg/dl (0-0.5); Calcium 8.6 mg/dl (8.6-10.3); Creatinine Clr Calc Pharmacy 41.7 ml/min; Est GFR (African American) 71.9 ml/min; Est GFR (Non-African American) 62.1 ml/min; Potassium 3.5 mmol/L (3.5-5.1)
[2023-05-19] MEDS: VANCOMYCIN HCL 1,000 MG in SODIUM CHLORIDE 0.9% 250 ML IV SCH (04:52)
[2023-05-19] MEDS: BUDESONIDE 0.25 MG/2 ML VIAL (PULMICORT) NEB SCH ×3 (07:31→19:32)
[2023-05-19] MEDS: FORMOTEROL 20 MCG/2 ML VIAL INH SCH ×2 (07:32→19:32)
[2023-05-19] MEDS: DOCUSATE SODIUM/SENNA 50/8.6MG TAB PO SCH ×2 (08:04→21:29)
[2023-05-19] MEDS: CEFEPIME 2,000 MG in SYRINGE 0 ML IV SCH (08:04)
[2023-05-19] MEDS: NICOTINE 14 MG/24 HR PATCH TD SCH (08:04)
[2023-05-19] MEDS: MoRPHine SULFATE 2 MG/ML CARP IV PRN ×4 (08:04→23:09)
[2023-05-19] MEDS: UMECLIDINIUM BROMIDE 62.5MCG/BLISTER 7 PUFFS/INHALER INH SCH (08:05)
[2023-05-19] MEDS ORDERED: ONDANSETRON INJ 2 MG/ML 2 ML VIAL IV PRN (08:39)
[2023-05-19] MEDS ORDERED: ONDANSETRON 4 MG OD TAB SL PRN (08:39)
[2023-05-19] MEDS: LORazepam 2 MG/1 ML VIAL IV PRN ×3 (09:00→21:50)
[2023-05-19] MEDS: MoRPHine SULFATE 10 MG/0.5 ML UDP PO PRN ×4 (09:07→19:06)
[2023-05-20] MEDS: MoRPHine SULFATE 2 MG/ML CARP IV PRN ×7 (01:08→23:40)
[2023-05-20] MEDS: LORazepam 2 MG/1 ML VIAL IV PRN ×4 (04:44→19:44)
[2023-05-20] MEDS: BUDESONIDE 0.25 MG/2 ML VIAL (PULMICORT) NEB SCH (07:11)
[2023-05-20] MEDS: FORMOTEROL 20 MCG/2 ML VIAL INH SCH (07:11)
--- NOTE | 2023-05-20 08:20 | Hospitalist Progress Note ---
Date of Service May 19, 2023 Assessment & Plan (1) Acute and chronic respiratory failure: Plan: Patient is an 82-year-old female with a past medical history of right LISA due to PAD, nicotine dependence, COPD, DM 2, htn and carotid stenosis who presents to the hospital for evaluation of hypoxia. Work-up thus far has revealed blood loss anemia secondary to abnormal vaginal bleeding and severe sepsis likely due to urinary tract infection and or multifocal Pneumonia. -Acute hypoxemic respiratory failure secondary to multifocal Pneumonia on top of chronic COPD -Chest x ray and CT showed evidence of multilobar Pneumonia -Still on high flow oxygen, goal saturation of 88 to 92%. Weaned down to 10L from a high of 35L -Blood cultures negative so far, MRSA swab is negative Concerned that patient may not improve to the point where we can bring her to centre care. WBC initally improved but has been worseneing as of late. Also patient is now having a fever. Will resume vancomycin, this had been discontinued earlier in the hospital stay due to negative MRSA. Though WBC was not improving while taking vancomycin. continue cefepime. Will consult pulmonary, prognosis is guarded. ON 05/15 Patient opted against chemo and radiation. Despite more aggressive antibiotics, patient has continued to require large amounts of oxygen supplementation. Given, her poor prognosis with advanced cancer, and lack of clinical progression, family is opting for a comofrt approach. Will transition to Comfort. Antibiotics will be stopped (2) Severe sepsis: Plan: -SIRS criteria of leukocytosis, hypotension, and end-organ damage plus likely urinary and pulmonary source making criteria for severe sepsis -Now resolving -Urinalysis positive for leukocyte esterase, blood, and white blood cells. -Blood cultures and urine cultures collected, negative so far -Sahu catheter placed for accurate I's and O's -treated IV antibiotics, Cefepime (3) UTI (urinary tract infection): Plan: - As above (4) Acute blood loss anemia: Plan: -Likely secondary to vaginal bleeding, possibly from a submucosal fibroid in the setting of aspirin and Plavix use -Hb stable following transfusion of 2 units of blood (5) Iron deficiency: Plan: -previously noted low total iron and ferritin -in addition to blood products above, added venofer infusions, 200mg daily x5 days (6) Chronic obstructive pulmonary disease: Plan: -[id number] smoker and continues to smoke -Nicotine patch applied -Typically takes Combivent as needed but does not have any maintenance inhalers per my chart review -For now make DuoNeb scheduled every every 4 hour, consider adding maintenance inhalers (7) Diabetes: Plan: -Not on any medications at home -Diet controlled -Typically would order A1c but given acute anemia with transfusion, this will be inaccurate (8) Chronic pain: Plan: - 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 -Seems to be exacerbated in the ED, switch pain medication to 0.25 mg of Dilaudid for moderate pain, 0.5 mg for severe pain -If pain improves return back to home regimen of tramadol and oxycodone (9) Abnormal vaginal bleeding: Plan: - Transvaginal ultrasound was not useful due to empty bladder from sahu -CT abdomen and pelvis shows possible sub mucosal fibroid -However, patient does not want any procedure to further help make a diagnosis -Appreciate Gynecology -No further bleeds (10) PAD (peripheral artery disease): Plan: -Hold aspirin and Plavix in the setting of active bleed -Hold pentoxifylline (11) Hx of right BKA: Plan: - Secondary to PAD as above (12) Hypertension: Plan: - Hold amlodipine given soft blood pressures in emergency department (13) Acute encephalopathy: Plan: acute on chronic encephalopathy, now resolved. Patient back to her baseline most likely delirium on top of dementia PRN haldol for agitation Plan Disposition: continue hospitalization, Pt is a bed hold at [facility] and plan to return therewhen medically stable DVT prophylaxis: Contraindicated in active bleed Diet: Heart healthy with low-sodium CODE STATUS: DNR/DNI as discussed with patient. Admission and Anticipated Discharge Date Admission Date: May 07, 2023 Subjective Patient is surrounded with family. Appears to be agitated, Family is asking for patient to be placed on comfort. Review of Systems Review of Systems: Unobtainable due to cognitive status Physical Exam Physical Exam: The patient is awake, still on high flow oxygen HEENT--PERRL, EOMI, mucous membranes and oropharynx mildly dry Neck--supple. No JVD. No bruits. Thyroid normal, trachea midline, no adenopathy. Heart--normal S1 and S2. No murmurs, rubs or gallops. Lungs--reduced air entry, crackles Abdomen--normal bowel sounds and soft. Extremities--Right BKA Dermatologic--normal skin turgor, normal color, no abnormal lymph nodes, no rash. Neurologic--cranial nerves II through XII grossly intact. Rheumatologic--normal range of motion. Psychiatric--normal affect. Results & Data Results & Data Vital Signs (Past 12 Hours) Vital Signs O2 Del Method O2 Flow Rate 05/20/23 00:08 High Flow Nasal Cannula 6 PG Care Time/CCT Total # of Minutes Spent Total Time Spent with Patient: Total time spent is greater than 50% in coordination of care (as documented) at patient's floor/unit and/or counseling patient: Coding Level of Care Code 10401 SUB INP/OBS CARE 3/50MIN Diagnoses Acute and chronic respiratory failure J96.20 Severe sepsis A41.9; R65.20 UTI (urinary tract infection) N39.0 Acute blood loss anemia D62 Iron deficiency E61.1 Chronic obstructive pulmonary disease J44.9 Diabetes E11.9 Chronic pain G89.4 Chronic pain type: chronic pain syndrome Abnormal vaginal bleeding N93.9 PAD (peripheral artery disease) I73.9 Hx of right BKA Z89.511 Hypertension I10 Acute encephalopathy G93.40 Time Spent (min) 50 (8) Chronic pain Chronic pain type: chronic pain syndrome Qualified Code(s): G89.4 - Chronic pain syndrome
[2023-05-20] MEDS: NICOTINE 14 MG/24 HR PATCH TD SCH (08:59)
[2023-05-20] MEDS: DOCUSATE SODIUM/SENNA 50/8.6MG TAB PO SCH (08:59)
[2023-05-20] MEDS: UMECLIDINIUM BROMIDE 62.5MCG/BLISTER 7 PUFFS/INHALER INH SCH (09:00)
[2023-05-20] MEDS: MoRPHine SULFATE 10 MG/0.5 ML UDP PO PRN (17:30)
--- NOTE | 2023-05-20 20:22 | Hospitalist Progress Note ---
Date of Service May 20, 2023 Assessment & Plan (1) Comfort measures only status: Plan: cont MANAGER BILLING MANAGER BILLING initiated yesterday on 05/19/23 suspect that at some point in the next 12-24 hours will need to institute a morphine infusion cont ativan prn cont meds for excess secretions cont sahu & other comfort measures support given to family suspect she will pass in the next 1-2 days (2) Palliative care encounter: Plan: as above (3) Acute and chronic respiratory failure: Plan: acute component - 2nd multifocal pneumonia chronic component - COPD was on high amounts of O2 via high-flow early in the stay (4) Severe sepsis: Plan: 2nd to pneumonia +/- suspected UTi abx stopped now on MANAGER BILLING (5) UTI (urinary tract infection): Plan: suspected but culture never grew anything (6) Acute blood loss anemia: Plan: Likely secondary to vaginal bleeding, possibly from a submucosal fibroid in the setting of aspirin and Plavix use s/p 2 units of blood this admission now on MANAGER BILLING (7) Iron deficiency: Plan: 2nd to #6 did receive IV iron while here now MANAGER BILLING (8) Chronic obstructive pulmonary disease: Plan: with resulting chronic hypoxic resp failure now MANAGER BILLING - see above (9) Diabetes: Plan: all therapies stopped (10) Chronic pain: Plan: was taking home regimen of tramadol and oxycodone pre-hospital thus will have tolerance to narcotics and will need dose adjustments of pain meds frequently (11) Abnormal vaginal bleeding: Plan: CT abdomen and pelvis showed possible sub mucosal fibroid no Rx now MANAGER BILLING (12) PAD (peripheral artery disease): Plan: with R BKA all meds stopped (13) Hx of right BKA: (14) Hypertension: Plan: all meds stopped (15) Acute encephalopathy: Plan: acute on chronic encephalopathy acute was likely metabolic encephalopathy from pneumonia, etc Plan cont comfort care pathway support given to family Admission and Anticipated Discharge Date Admission Date: May 07, 2023 Subjective patient was obtunded during the visit family at bedside (2 sons, grand-daughter, etc) family reports she was restless/agitated earlier in the day but the last 2-3 hours was better has not spoken any words since early yesterday pt's sons report she did not go to [facility] outside the hospital but they were appreciative of the graduate research assistant's visit yesterday Review of Systems Review of Systems: Unobtainable due to reduced consciousness Physical Exam Physical Exam: gen - obtunded, tachypnea, mild subcostal retractions noted neck - no JVD mouth - MM dry heart - RRR, s1 s2, heart tones distant lungs - course BS b/l with wheeze, retractions, tachypnea abd - soft, no apparent tenderness ext - R BKA, left foot cool to touch - urine quite concentrated in the sahu bag PG Care Time/CCT Total # of Minutes Spent Total Time Spent with Patient: Total time spent is greater than 50% in coordination of care (as documented) at patient's floor/unit and/or counseling patient: Coding Level of Care Code 96256 SUB INP/OBS CARE 09/04MIN Diagnoses Comfort measures only status Z51.5 Palliative care encounter Z51.5 Acute and chronic respiratory failure J96.20 Severe sepsis A41.9; R65.20 UTI (urinary tract infection) N39.0 Acute blood loss anemia D62 Iron deficiency E61.1 Chronic obstructive pulmonary disease J44.9 Diabetes E11.9 Chronic pain G89.4 Chronic pain type: chronic pain syndrome Abnormal vaginal bleeding N93.9 PAD (peripheral artery disease) I73.9 Hx of right BKA Z89.511 Hypertension I10 Acute encephalopathy G93.40 (10) Chronic pain Chronic pain type: chronic pain syndrome Qualified Code(s): G89.4 - Chronic pain syndrome
[2023-05-20] MEDS: GLYCOPYRROLATE 0.2 MG/ML VIAL IV PRN (23:42)
[2023-05-21] MEDS: LORazepam 2 MG/1 ML VIAL IV PRN ×3 (02:20→13:06)
[2023-05-21] MEDS: MoRPHine SULFATE 2 MG/ML CARP IV PRN ×3 (02:20→07:57)
[2023-05-21] MEDS: GLYCOPYRROLATE 0.2 MG/ML VIAL IV PRN (05:20)
[2023-05-21] MEDS ORDERED: STAT IV Infusion **Titration per Protocol STA (07:34)
[2023-05-21] MEDS ORDERED: MoRPHine SULF/NSS 100 MG/100 ML BAG IV SCH (08:00)
[2023-05-21] MEDS: NICOTINE 14 MG/24 HR PATCH TD SCH (08:00)
--- NOTE | 2023-05-21 15:43 | Discharge Summary ---
Date of Service date of admission - May 07, 2023 date of - May 21, 2023 time of - 1510 Admission HPI Per Admitting Provider Patient is an 82-year-old female with a past medical history of right LISA due to PAD, nicotine dependence, COPD, DM 2, htn and carotid stenosis who presents to the hospital for evaluation of hypoxia. Unfortunately at the time of my interview, the patient was in quite a bit of pain and unwilling to answer the majority of my questions. The majority of the history and physical was obtained from ED provider note and calling son on the phone. I have no patient has had a 48-hour history of complaining of nausea, constipation, and shortness of breath beyond baseline. It seems that she had developed fever, elevated blood sugar, and hypoxia with her pulse ox reading in the 70s. For this reason EMS was called. When they had arrived they provided a DuoNeb treatment which seemed to improve her breathing slightly. She was then brought to the emergency department and she was then placed on oxy mask which improved her O2 saturations into the 88-90 percent range. When talking to the patient she is at least able to tell me where she is and her situation. She states that she is in a lot of pain. She has a BKA due to PAD on the right secondary to smoking for more than 50 years. She states that she is having phantom limb pain there as well as back pain. She is inconsolable and will not answer my questions and asking for pain medication. When talking to the son over the phone, it seems the patient has had bleeding issues regarding her genitals for the past several weeks which [facility] was intending to start a work-up on him but does not seem that this was completed or started. It seems that they felt that her bleeding was more from her urethra but the ED provider felt that it was more from the patient's vagina. The patient herself is unable to tell me how long this has been going on. Patient has a [id number]-[id number] smoking history and continues to smoke at least every other day per the son's history when she goes to the grocery store. Otherwise no new or meaningful HPI gathered at this time. ED course: Patient evaluated by provider in room. Labs are significant for an elevated white blood cell count of 24, hemoglobin of 5.8, potassium of 5.2, creatinine of 1.3, a lactate of 3.1 with a repeat of 2.2 after fluids, high- sensitivity troponin of 47 with a repeat of 37, BNP of 219, and negative procalcitonin, urinalysis positive for 2+ blood, 2+ leukocyte esterase, greater than 30 white blood cells. Chest x-ray shows persistent right elevated hemidiaphragm but with no acute pathology is noted per my interpretation. Blood cultures and urine culture taken. A bolus of normal saline was given. Cefepime and fentanyl were given. Principal Diagnosis 1. Acute on chronic hypoxic respiratory failure 2. Multifocal pneumonia 3. Severe sepsis 4. PAD 5. Right BKA status 6. Tobacco dependence 7. COPD 8. T2DM 9. HTN 10. Carotid stenosis 11. Acute blood loss anemia s/p 2 units PRBCs 12. Abnormal vaginal bleeding with resulting #11 13. Urinary tract infection 14. Acute metabolic encephalopathy 2nd to #1, #2, #3, #13 15. LLL lung mass - highly suspicious for lung cancer Discharge Exam at time of - pupils fixed/dilated; no palpable pulse; no audible heart tones; no spontaneous respiratory effort; no response to pain/voice. Discharge Data Allergies Allergy/AdvReac Type Severity Reaction Status Date / Time benzoyl peroxide Allergy Severe Rash Verified 12/17/22 06:31 lorazepam [From Ativan] Allergy Mild Flushed, Verified 12/17/22 06:31 elevated BP, skin burning Consultations Gynecology Palliative Care Pulmonology Procedures Performed 2 units PRBCs Ordered Studies 05/07/23 04:40 US transvaginal Routine 05/07/23 05:44 US pelvic complete Routine 05/07/23 17:59 CT Abd and Pelvis [CT abd pelvis wo con] Urgent 05/13/23 08:07 CT chest without contrast [CT chest diagnostic wo con] Routine 05/13/23 09:23 CT head/brain wo con Stat Hospital Course (1) Comfort measures only status: The patient presented from [facility] with hypoxia, shortness of breath, fever, nausea, constipation, and vaginal bleeding. She was hypoxic in the 70s upon arrival here. Admission chest x-ray suggested pneumonia, and there was concern for UTI as well. Broad-spectrum IV antibiotics were initiated. She ultimately required high-flow nasal cannula due to the severity of her respiratory illness. She met criteria for severe sepsis. She was altered much of the stay. In addition, she had acute blood loss anemia requiring 2 units of PRBCs while here. It was felt that the blood loss was due to vaginal bleeding. The cause of vaginal bleeding was uncertain. Despite IV antibiotics, supportive care, etc the patient never made significant improvement. Palliative care was consulted to refine goals of care. On 05/19/23 a comfort care pathway was initiated. All antibiotics and supportive care measures were discontinued. AM of 05/21/23 the patient required use of a morphine infusion due to respiratory distress. Mrs Avila ultimately passed at 1510 in the presence of her family. (2) Acute and chronic respiratory failure with hypoxia: (3) Pneumonia: (4) Acute encephalopathy: (5) Severe sepsis: (6) UTI (urinary tract infection): (7) Acute blood loss anemia: (8) Abnormal vaginal bleeding: (9) Pulmonary lesion: LLL nodule/mass - was HIGHLY suspicious for lung cancer (10) Chronic obstructive pulmonary disease: (11) Hx of right BKA: (12) PAD (peripheral artery disease): (13) History of tobacco use: (14) Diabetes: Total Time Total Time Spent Total Time Spent (In Minutes): 25 Discharge Plan Discharge Items Patient Disposition: Other Date/Time: 05/21/23 15:10 Coding Level of Care Code 47669 IN/OBS DISCH 30 MIN/LESS Diagnoses Comfort measures only status Z51.5 Acute and chronic respiratory failure with hypoxia J96.21 Pneumonia J18.9 Acute encephalopathy G93.40 Severe sepsis A41.9; R65.20 UTI (urinary tract infection) N39.0 Acute blood loss anemia D62 Abnormal vaginal bleeding N93.9 Pulmonary lesion J98.4 Chronic obstructive pulmonary disease J44.9 Hx of right BKA Z89.511 PAD (peripheral artery disease) I73.9 History of tobacco use Z87.891 Diabetes E11.9
--- NOTE | 2023-05-21 15:43 | Death Pronouncement Note ---
Date of Service May 21, 2023 Pronouncement Note Admission Date May 07, 2023 Date and Time of Date of : 05/21/23 Time of : 15:10 Preliminary Cause of (1) Pneumonia: (2) Acute and chronic respiratory failure: Additional Data Confirmation of : no pulse, no respirations, no heart sounds and pupils fixed and dilated Pronouncement Performed By: Attending Physician Family: at bedside Attending/PCP notified?: Yes Attending physician: Oziel Molina MD Was code activated?: No Autopsy requested?: No eligibility examiner notified?: No Organ bank notified?: Yes Coding Level of Care Code None Diagnoses Pneumonia J18.9 Acute and chronic respiratory failure J96.20
--- OUTSIDE RECORDS SUMMARY | 2023-05-24 12:55 | External Medical Summary | Continuity of Care Document ---
Author Name Unknown Organization [place] [id number] [facility] Address [address] [place], [place] [id number] Care Team Providers Care Payloader Operator Name Role Phone Ed Day Primary Care Physician [phone] [id number] Date(s): 11/07/22 - 11/07/22 [facility] [address], [address] [place] [phone] Discharge Disposition: Home or Self Care Attending Physician: MD Padilla Eugene J Referring Physician: MD Padilla Eugene J Allergies, Adverse Reactions, Alerts Substance Reaction Severity Status Benzoyl Peroxide Itching Active LORazepam Flushing Skin irritation Hypertension Active Medications Advair Diskus 250 mcg-50 mcg Start: 10/21/16 14:48:00, 1 puff, inhaled, bid Start Date: 10/21/16 Status: Ordered amLODIPine 10 mg oral tablet Start: 10/31/22 9:21:00 EDT, 1 tab, PO, Daily Start Date: 10/31/22 Status: Ordered aspirin 81 mg oral delayed release tablet Start: 10/31/22 9:22:00 EDT, 1 tab, PO, Daily Start Date: 10/31/22 Status: Ordered atorvastatin 40 mg oral tablet Start: 10/31/22 9:22:00 EDT, 1 tab, PO, Daily Start Date: 10/31/22 Status: Ordered citalopram 10 mg oral tablet Start: 10/31/22 9:23:00 EDT, 2 tab, PO, Daily Start Date: 10/31/22 Status: Ordered clopidogrel 75 mg oral tablet Start: 10/31/22 9:24:00 EDT, 1 tab, PO, Daily Start Date: 10/31/22 Status: Ordered Effexor 75 mg oral tablet Start: 11/11/13 10:54:00, 1 tab, PO, Daily Start Date: 11/11/13 Status: Ordered gabapentin 300 mg oral capsule Start: 10/26/18 14:26:00 EDT, 2 cap, PO, tid Start Date: 10/26/18 Status: Ordered glipiZIDE 5 mg oral tablet Start: 04/24/15 13:12:00, 0.5 tab, PO, bid Start Date: 04/24/15 Status: Ordered ICaps AREDS 2 Start: 10/31/22 9:26:00 EDT, See Instructions, 1 cap po bid Start Date: 10/31/22 Status: Ordered meloxicam 15 mg oral tablet Start: 06/01/15 13:05:00, 1 tab, PO, Daily Start Date: 06/01/15 Status: Ordered Myrbetriq 25 mg oral tablet, extended release Start: 05/15/20 13:27:00 EDT, 1 tab, PO, Daily Start Date: 05/15/20 Status: Ordered oxybutynin 5 mg oral tablet Start: 05/15/20 13:27:00 EDT, 1 tab, PO, bid, PRN: as needed for urinary discomfort Start Date: 05/15/20 Status: Ordered pentoxifylline 400 mg oral tablet, extended release Start: 11/18/12 9:13:00, 1 tab, PO, tid Start Date: 11/18/12 Status: Ordered Polytrim 10,000 units-1 mg/mL ophthalmic solution Start: 10/31/22 9:25:00 EDT, 1 drop, right eye, qid Start Date: 10/31/22 Status: Ordered prednisoLONE acetate 1% ophthalmic suspension Start: 10/31/22 9:26:00 EDT, 1 drop, right eye, qid Start Date: 10/31/22 Status: Ordered simvastatin 20 mg oral tablet Start: 04/22/16 15:35:00, 1 tab, PO, qhs Start Date: 04/22/16 Status: Ordered traMADol 50 mg oral tablet Start: 10/21/16 14:49:00 EDT, 2 tab, PO, q8h Start Date: 10/21/16 Status: Ordered Tylenol 325 mg oral tablet Start: 10/26/18 14:29:00 EDT, 2 tab, PO, bid Start Date: 10/26/18 Status: Ordered Problem List Condition Confirmation Course Effective Dates Status H ealth Status Informant Amputated below knee Confirmed Active (atherosclerosis) Confirmed Active Carotid artery stenosis Confirmed Active S/p carotid endarterectomy Confirmed Active Peripheral arterial occlusive disease Confirmed Active Postprocedural state finding Confirmed Active Spinal stenosis Confirmed Active Tobacco abuse Confirmed Active 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 Confirmed Active Weight disorder Confirmed Active Procedures Procedure Date Related Diagnosis Body Site Status LLE angio w bell captain SFA 05/15/15 Compl eted left CEA 04/10/15 Completed CXR - Chest X-ray 1 03/29/15 Compl eted aortogram & LLE arteriogram with TAIL PULLER ext iliac & common femoral 04/05/14 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 Revision 08/23/13 Completed RLE BKA 06/18/13 Completed Femoral-popliteal artery bypass graft 2 12/11/12 Completed Single leg arteriogram 3 11/24/12 Completed bladder repair Completed Cholecystectomy planned C ompleted 1No acute cardiopulhemmonary findings, Stable moderate elevation of right hemidiaphragm 2Hybrid Right 3Right Social History Social History Type Response Tobacco Current every day sm oker, Cigarettes 1 Smoking Status Current every day he yohana smoker Sex Female 11.5 ppd Patient Care team information Personnel Name: MD Barb, Ed Hilario Address: Address: [address] [place] [id number]
--- OUTSIDE RECORDS SUMMARY | 2023-05-24 12:55 | External Medical Summary | Continuity of Care Document ---
Author Name Unknown Organization [facility] [address] [facility] Address [address] [place], [place] [id number] Care Team Providers Care Valve Seater Operator Name Role Phone Ed Day Primary Care Physician [phone] Encounter [facility] [id number] Date(s): 12/31/22 - 12/31/22 [facility] [address] [place] [address] [phone] Encounter Diagnosis S/P femoropopliteal bypass surgery(Discharge Diagnosis) - 12/31/22 Discharge Disposition: Home or Self Care Attending Physician: MD Padilla Eugene J Referring Physician: MD Day Dennis A Allergies, Adverse Reactions, Alerts Substance Reaction Severity Status Benzoyl Peroxide Itching Active LORazepam Flushing Skin irritation Hypertension Active Assessment and Plan Extracted from: Title:Clinical Document Author:SATHYA Tuttle Lynn Date:12/31/22 I OUTPATIENT NOTE Name: GARRETT PRIETO Patient Number: [id number] : 1940 Date of Service: 12/31/2022 Chief Complaint: _Follow-up after left leg femoropopliteal HPI: _Ms. Prieto is an elderly female presents to Dr. Padilla's vascular surgery clinic today for 2-week follow-up visit regarding her recent left leg femoral to distal popliteal artery in situ bypass. This was performed due to critical limb ischemia of the left leg and necrosis of toes. As you may remember the patient is status post remote right leg below-knee amputation due to severe arterial disease and ischemic limb. Patient admits some discomfort in her incision sites. She states that the pain in her left foot is considerably improved since her procedure. She states that she thinks her foot wounds are beginning to heal as well. She denies fevers, chills, nausea, vomiting, chest pain, shortness of breath, other complaints. Current Home Meds: (Last Updated 10/31 09:27) acetaminophen (Tylenol 325 mg oral tablet) 650 mg PO bid amLODIPine (amLODIPine 10 mg oral tablet) 10 mg PO Daily aspirin (aspirin 81 mg oral delayed release tablet) 81 mg PO Daily atorvastatin (atorvastatin 40 mg oral tablet) 40 mg PO Daily citalopram (citalopram 10 mg oral tablet) 20 mg PO Daily clopidogrel (clopidogrel 75 mg oral tablet) 75 mg PO Daily fluticasone-salmeterol (Advair Diskus 250 mcg-50 mcg) 1 puff inhaled bid gabapentin (gabapentin 300 mg oral capsule) 600 mg PO tid glipiZIDE (glipiZIDE 5 mg oral tablet) 2.5 mg PO bid meloxicam (meloxicam 15 mg oral tablet) 15 mg PO Daily mirabegron (Myrbetriq 25 mg oral tablet, extended release) 25 mg PO Daily multivitamin with minerals (ICaps AREDS 2) 1 cap po bid oxybutynin (oxybutynin 5 mg oral tablet) 5 mg PO bid PRN: as needed for urinary discomfort pentoxifylline (pentoxifylline 400 mg oral tablet, extended release) 400 mg PO tid polymyxin B-trimethoprim ophthalmic (Polytrim 10,000 units-1 mg/mL ophthalmic solution) 1 drop right eye qid prednisoLONE ophthalmic (prednisoLONE acetate 1% ophthalmic suspension) 1 drop right eye qid simvastatin (simvastatin 20 mg oral tablet) 20 mg PO qhs traMADol (traMADol 50 mg oral tablet) 100 mg PO q8h venlafaxine (Effexor 75 mg oral tablet) 1 tab PO Daily Allergies and Sensitivities: LORazepam(Hypertension) LORazepam(Skin irritation) LORazepam(Flushing) Benzoyl Peroxide(Itching) Past Medical History: Problems: S/P femoropopliteal bypass surgery (atherosclerosis) S/p carotid endarterectomy Carotid artery stenosis Weight disorder Tobacco abuse 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 No Orthostatic Data Available Height and Weight: Last Updated 10/26/18 14:19 Date BMI Wt(kg) Wt(lb) Method Ht(cm) (ft-in) Method 10/26/18 29.16 79.38 175 Patient stated 165 5-5 10/20/17 30.32 82.55 182 Patient stated 165 5-5 11/21/16 30.89 84.1 185 Standing Scale 165 5-5 Standing Heights and Weights are the last 3 documented. Physical Exam Constitutional: In general patient is mildly chronically ill-appearing elderly female in no distress. She is alert and oriented x3. She has no focal neurological deficits. Her right leg BKA is noted. Her left leg surgical incisions in the groin, thigh, and medial leg below-knee are clean dry and intact with jason. There is local tenderness and mild local edema. There is no significant drainage or erythema. There is no odor. Her left DP pulses +2. She has somewhat reddened toes, but they do have brisk capillary refill aside from the areas of eschar on her left third fourth and fifth toes. ASSESSMENT: _ PLAN: _ 1 ) _status post left leg femoral to distal popliteal artery in situ bypass Patient is overall doing well from her recent procedure. Her left leg is improved considerably. Her DP pulse is now palpable. Hopefully this will allow her toe wounds to heal versus demarcate. Her's jason were removed today without difficulty or wound dehiscence. Steri-Strips were placed over the wounds. She will return here in 4 to 6 weeks for reevaluation. She is advised to call if she has any concerns. She is agreeable to this plan. Thank you for letting us participate in the care of this patient. Medications Advair Diskus 250 mcg-50 mcg Start: [...] PO, bid Start Date: 10/26/18 Status: Ordered Mental Status 12/31/22 Barriers to Learning one year None evide nt Mandatory Health Literacy Documentation Yes Health Literacy Communication Barriers N ever Primary Language Vietnamese Problem List Condition Confirmation Course Effective Dates Status H ealth Status Informant Amputated below knee Confirmed Active (atherosclerosis) Confirmed Active Carotid artery stenosis Confirmed Active S/P femoropopliteal bypass surgery Confirmed Active S/p carotid endarterectomy Confirmed Active Peripheral arterial occlusive disease Confirmed Active Postprocedural state finding Confirmed Active Spinal stenosis Confirmed Active Tobacco abuse Confirmed Active 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 Confirmed Active Weight disorder Confirmed Active Diagnosis Diagnosis Type Effective Dates Health Status Clinical Service Informant S/P femoropopliteal bypass surgery Discharge Diagnosis 12/31/22 Procedures Procedure Date Related Diagnosis Body Site Status LLE Femoral-distal popliteal artery in situ bypass graft 12/17/22 Completed LLE angio w director of religious activities SFA 05/15/15 Compl eted left CEA 04/10/15 Completed CXR - Chest X-ray 1 03/29/15 Compl eted aortogram & LLE arteriogram with ACQUISITION ANALYST ext iliac & common femoral 04/05/14 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 Revision 08/23/13 Completed RLE BKA 06/18/13 Completed Femoral-popliteal artery bypass graft 2 12/11/12 Completed Single leg arteriogram 3 11/24/12 Completed bladder repair Completed Cholecystectomy planned C ompleted 1No acute cardiopulhemmonary findings, Stable moderate elevation of right hemidiaphragm 2Hybrid Right 3Right Vital Signs Most recent to oldest [Reference Range]: 1 Heart Rate 67 bpm (12/31/22 1:34 PM) Blood Pressure 140/62mmHg (12/31/22 1:34 PM) Cuff Pulse Pressure 78 mmHg (12/31/22 1:34 PM) BP Location # 1 Right Arm (12/31/22 1:34 PM) Social History Social History Type Response Tobacco Current every day sm oker, Cigarettes 1 Smoking Status Current every day li ght smoker Sex Female 11.5 ppd [facility] Outpt Note * SATHYA Tuttle, Emerita: PERFORM Event Display: [facility] Outpt Note Authored Date: [id number] [facility] OUTPATIENT NOTE Name: GARRETT PRIETO Patient Number: [id number] : 1940 Date of Service: 12/31/2022 Chief Complaint: _Follow-up after left leg femoropopliteal HPI: _Ms. Prieto is an elderly female presents to Dr. Padilla's vascular surgery clinic today for 2-week follow-up visit regarding her recent left leg femoral to distal popliteal artery in situ bypass. This was performed due to critical limb ischemia of the left leg and necrosis of toes. As you may remember the patient is status post remote right leg below-knee amputation due to severe arterial dis ease and ischemic limb. Patient admits some discomfort in her incision sites. She states that the pain in her left foot is considerably improved since her procedure. She states that she thinks her foot wounds are beginning to heal as well. She denies fevers, chills, nausea, vomiting, chest pain, shortness of breath, other complaints. Current Home Meds: (Last Updated 10/31 09:27) acetaminophen (Tylenol 325 mg oral tablet) 650 mg PO bid amLODIPine (amLODIPine 10 mg oral tablet) 10 mg PO Daily aspirin (aspirin 81 mg oral delayed release tablet) 81 mg PO Daily atorvastatin (atorvastatin 40 mg oral tablet) 40 mg PO Daily citalopram (citalopram 10 mg oral tablet) 20 mg PO Daily clopidogrel (clopidogrel 75 mg oral tablet) 75 mg PO Daily fluticasone-salmeterol (Advair Diskus 250 mcg-50 mcg) 1 puff inhaled bid gabapentin (gabapentin 300 mg oral capsule) 600 mg PO tid glipiZIDE (glipiZIDE 5 mg oral tablet) 2.5 mg PO bid meloxicam (meloxicam 15 mg oral tablet) 15 mg PO Daily mirabegron (Myrbetriq 25 mg oral tablet, extended release) 25 mg PO Daily multivitamin with minerals (ICaps AREDS 2) 1 cap po bid oxybutynin (oxybutynin 5 mg oral tablet) 5 mg PO bid PRN: as needed for urinary discomfort pentoxifylline (pentoxifylline 400 mg oral tablet, extended release) 400 mg PO tid polymyxin B-trimethoprim ophthalmic (Polytrim 10,000 units-1 mg/mL ophthalmic solution) 1 drop right eye qid prednisoLONE ophthalmic (prednisoLONE acetate 1% ophthalmic suspension) 1 drop right eye qid simvastatin (simvastatin 20 mg oral tablet) 20 mg PO qhs traMADol (traMADol 50 mg oral tablet) 100 mg PO q8h venlafaxine (Effexor 75 mg oral tablet) 1 tab PO Daily Allergies and Sensitivities: LORazepam(Hypertension) LORazepam(Skin irritation) LORazepam(Flushing) Benzoyl Peroxide(Itching) Past Medical History: Problems: S/P femoropopliteal bypass surgery (atherosclerosis) S/p carotid endarterectomy Carotid artery stenosis Weight disorder Tobacco abuse 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 No Orthostatic Data Available Height and Weight: Last Updated 10/26/18 14:19 Date BMI Wt(kg) Wt(lb) Method Ht(cm) (ft-in) Method 10/26/18 29.16 79.38 175 Patient stated 165 5-5 10/20/17 30.32 82.55 182 Patient stated 165 5-5 11/21/16 30.89 84.1 185 Standing Scale 165 5-5 Standing Heights and Weights are the last 3 documented. Physical Exam Constitutional: In general patient is mildly chronically ill-appearing elderly female in no distress. She is alert and oriented x3. She has no focal neurological deficits. Her right leg BKA is noted.Her left leg surgical incisions in the groin, thigh, and medial leg below-knee are clean dry and int act with jason. There is local tenderness and mild local edema. There is no significant drainage or erythema. There is no odor. Her left DP pulses +2. She has somewhat reddened toes, but they do have brisk capillary refill aside from the areas of eschar on her left third fourth and fifth toes. ASSESSMENT: _ PLAN: _ 1 ) _status post left leg femoral to distal popliteal artery in situ bypass Patient is overall doing well from her recent procedure. Her left leg is improved considerably. HerDP pulse is now palpable. Hopefully this will allow her toe wounds to heal versus demarcate. Her's jason were removed today without difficulty or wound dehiscence. Steri-Strips were placed over thewounds. She will return here in 4 to 6 weeks for reevaluation. She is advised to call if she has any concerns. She is agreeable to this plan. Thank you for letting us participate in the care of this patient. Electronic Signature on File CC: Ed Day III, MD [address] [place] [id number] * Electronically Reviewed/Signed by: Emerita Tuttle PA-C Author Signature Dt/Tm:12/31/2022 02:42 PM [facility] [place] [address] LM Patient Care team information Care Team Personnel Name: SATHYA Tuttle Lynn Position: Physician Spray Painter Exempt - Vasc Surg Member Role: Lifetime Relationship Address: Address: [address] [place] [id number] [place] Name: MD Day Dennis A Position: Referring DIRECT Member Role: Primary Care Provider Address: Address: [address] [place] [address] [place] Name: MD Padilla Eugene J Position: Physician - Vascular Surg Member Role: Lifetime Relationship Address: Address: [address] [place] [address] [place] Care Team Related Persons Name: RIGOBERTO PRIETO Address: home [address] [place], [place] [id number] Name: PAUL PRIETO Address: home [address] [facility] [id number]
--- OUTSIDE RECORDS SUMMARY | 2023-05-24 12:55 | External Medical Summary | Continuity of Care Document ---
Author Name Unknown Organization [place] [id number] [facility] Address [address] [place], [place] [phone] Care Team Providers Care Rug Dry Room Attendant Name Role Phone Ed Day Primary Care Physician [phone] Encounter [facility] [id number] Date(s): 11/07/22 - 11/07/[address], [address] [place] [address] [phone] Discharge Disposition: Home or Self Care Attending Physician: MD Randy, Elliot Villagomez Referring Physician: MD Day Dennis A Allergies, [...] Diagnosis Body Site Status LLE angio w scow captain SFA 05/15/15 Compl eted left CEA 04/10/15 Completed CXR - Chest X-ray 1 03/29/15 Compl eted aortogram & LLE arteriogram with CYTOLOGY SUPERVISOR ext iliac & common femoral 04/05/14 Compl [...] Name: MD Barb, Ed Hilario Address: Address: [address] [place] [address]
--- OUTSIDE RECORDS SUMMARY | 2023-05-24 12:55 | External Medical Summary | Continuity of Care Document ---
Author Name Unknown Organization [facility] [address] [facility] Address [address] [place], [place] [id number] Care Team Providers Care Supervisor Shipfitters Name Role Phone Ed Day Primary Care Physician [phone] [id number] Date(s): 02/13/23 - 02/13/23 [facility] [address] [place] [address] [phone] Encounter Diagnosis S/P femoropopliteal bypass surgery(Discharge Diagnosis) - 02/13/23 Discharge Disposition: Home or Self Care Attending Physician: SATHYA Tuttle Lynn Referring Physician: MD Day Dennis A Allergies, Adverse Reactions, Alerts Substance Reaction Severity Status Benzoyl Peroxide Itching Active LORazepam Flushing Skin irritation Hypertension Active Assessment and Plan Extracted from: Title:Clinical Document Author:SATHYA Tuttle Lynn Date:02/13/23 [facility] OUTPATIENT NOTE Name: GARRETT PRIETO Patient Number: [id number] : 1940 Date of Service: 02/13/2023 Chief Complaint: _Follow-up for left leg bypass HPI: _Mrs. Prieto is an elderly female who presents to Dr. Padilla's vascular surgery clinic today for a follow-up visit regarding her recent left lower extremity femoral to popliteal artery in situ bypass which was performed about 8 weeks ago at [facility]. This was performed due to necrotic toes and nonhealing wounds and rest pain in the left foot. Patient states that she had immediate relief of her left foot pain day 1 postop. She states that her foot wounds are healing very well since undergoing her procedure. She denies any other complaints or concerns at this time. Current Home Meds: (Last Updated 02/13 10:29) acetaminophen (Tylenol 325 mg oral tablet) 650 [...] 250 mcg-50 mcg) 1 puff inhaled bid meloxicam (meloxicam 15 mg oral tablet) 15 mg PO Daily multivitamin with minerals (ICaps AREDS 2) 1 cap po bid oxyCODONE (oxyCODONE 5 mg oral tablet) 5 mg PO q6h PRN: as needed for pain pentoxifylline (pentoxifylline 400 mg oral tablet, extended release) 400 mg PO tid traMADol (traMADol 50 mg oral tablet) 100 mg PO q8h Allergies and Sensitivities: LORazepam(Hypertension) LORazepam(Skin irritation) LORazepam(Flushing) Benzoyl Peroxide(Itching) Past Medical History: Problems: S/P femoropopliteal bypass surgery (atherosclerosis) S/p carotid endarterectomy Carotid artery stenosis Weight disorder Tobacco abuse 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 [...] Physical Exam Constitutional: In general patient is a healthy-appearing well-nourished well-developed elderly female no distress. She is alert and oriented without any focal deficits. Her right leg has a below-knee amputation. Her left lower extremity surgical wounds from the groin down to the knee are well-healed. Her foot has mild edema. She has brisk capillary refill to the toes and does still have some areas of eschar to the dorsum of her third fourth and fifth toes, but this is beginning to loosen at the edges. Her DP and PT pulses in the left foot are palpable. ASSESSMENT: _ PLAN: _ 1 ) _status post left leg femoropopliteal in situ bypass Patient is overall doing well since her recent procedure. Her foot wounds are improving, and she no longer has rest pain in the foot. Her incisions are well-healed. We would like to see her back in about 2 more months with an ultrasound of her left leg bypass. She is to call with any other questions or concerns or if the wounds on her foot begins to worsen. She is in agreement to this plan. Thank you for letting [...] PO, Daily Start Date: 10/31/22 Status: Ordered ICaps AREDS 2 Start: 10/31/22 9:26:00 EDT, See Instructions, 1 cap po bid Start Date: 10/31/22 Status: Ordered meloxicam 15 mg oral tablet Start: 06/01/15 13:05:00, 1 tab, PO, Daily Start Date: 06/01/15 Status: Ordered oxyCODONE 5 mg oral tablet Start: 02/13/23 10:29:00 EDT, 1 tab, PO, q6h, Refills: 0, PRN: as needed for pain Start Date: 02/13/23 Status: Ordered pentoxifylline 400 mg oral tablet, extended release Start: 11/18/12 9:13:00, 1 tab, PO, tid Start Date: 11/18/12 Status: Ordered traMADol 50 mg oral tablet [...] Informant S/P femoropopliteal bypass surgery Discharge Diagnosis 02/13/23 Procedures Procedure Date Related Diagnosis Body Site Status LLE Femoral-distal popliteal artery in situ bypass graft 12/17/22 Completed LLE angio w shrimp trawler captain SFA 05/15/15 Compl eted left CEA 04/10/15 Completed CXR - Chest X-ray 1 03/29/15 Compl eted aortogram & LLE arteriogram with DETECTIVE PRECINCT ext iliac & common femoral 04/05/14 Compl [...] to oldest [Reference Range]: 1 Heart Rate 77 bpm (02/13/23 10:35 AM) Blood Pressure 148/74mmHg (02/13/23 10:35 AM) Cuff Pulse Pressure 74 mmHg (02/13/23 10:35 AM) BP Location # 1 Right Arm (02/13/23 10:35 AM) Social History Social History Type Response Tobacco Current every day sm oker, Cigarettes 1 Smoking Status Current every day carlos ght smoker Sex Female 11.5 ppd [facility] Outpt Note * SATHYA Tuttle, Emerita: PERFORM Event Display: [facility] Outpt Note Authored Date: [id number] [facility] OUTPATIENT NOTE Name: GARRETT PRIETO Patient Number: [id number] : 1940 Date of Service: 02/13/2023 Chief Complaint: _Follow-up for left leg bypass HPI: _Mrs. Prieto is an elderly female who presents to Dr. Padilla's vascular surgery clinic today for a follow-up visit regarding her recent left lower extremity femoral to popliteal artery in situ bypass which was performed about 8 weeks ago at [facility]. This was performed due to necrotic toes and nonhealing wounds and rest pain in the left foot. Patient states that she had immediate relief of her left foot pain day 1 postop. She states that her foot wounds are healing verywell since undergoing her procedure. She denies any other complaints or concerns at this time. Current Home Meds: (Last Updated 02/13 10:29) acetaminophen (Tylenol 325 mg oral tablet) 650 [...] 250 mcg-50 mcg) 1 puff inhaled bid meloxicam (meloxicam 15 mg oral tablet) 15 mg PO Daily multivitamin with minerals (ICaps AREDS 2) 1 cap po bid oxyCODONE (oxyCODONE 5 mg oral tablet) 5 mg PO q6h PRN: as needed for pain pentoxifylline (pentoxifylline 400 mg oral tablet, extended release) 400 mg PO tid traMADol (traMADol 50 mg oral tablet) 100 mg PO q8h Allergies and Sensitivities: LORazepam(Hypertension) LORazepam(Skin irritation) LORazepam(Flushing) Benzoyl Peroxide(Itching) Past Medical History: Problems: S/P femoropopliteal bypass surgery (atherosclerosis) S/p carotid endarterectomy Carotid artery stenosis Weight disorder Tobacco abuse 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 [...] Physical Exam Constitutional: In general patient is a healthy-appearing well-nourished well- developed elderly female no distress. She is alert and oriented without any focal deficits. Her right leg has a below-knee amputation. Her left lower extremity surgical wounds from the groin down to the knee are well-healed. Her foot has mild edema. She has brisk capillary refill to the toes and does still have some areas of eschar to the dorsum of her third fourth and fifth toes, but this is beginning to loosen at the edges. Her DP and PT pulses in the left foot are palpable. ASSESSMENT: _ PLAN: _ 1 ) _status post left leg femoropopliteal in situ bypass Patient is overall doing well since her recent procedure. Her foot wounds are improving, and she nolonger has rest pain in the foot. Her incisions are well- healed. We would like to see her back in about 2 more months with an ultrasound of her left leg bypass. She is to call with any other questions or concerns or if the wounds on her foot begins to worsen. She is in agreement to this plan. Thank you for letting us participate in the care of this patient. Electronic Signature on File CC: Ed Day III, MD [address] [place] [id number] * Electronically Reviewed/Signed by: Emerita Tuttle PA-C Author Signature Dt/Tm:02/13/2023 02:13 PM [facility] [place] [address] [place] [address] LM Patient Care team information Care Team Personnel Name: SATHYA Tuttle, Emerita Position: Physician Mortgage Protection Specialist Exempt - Vasc Surg Member Role: Lifetime Relationship Address: Address: [address] [place] [address] [place] Name: MD Barb, Ed Hilario Position: Referring DIRECT Member Role: Primary Care Provider Address: Address: [address] [place] [address] [place] Name: MD Randy, Elliot Villagomez Position: Physician - Vascular Surg Member Role: Lifetime Relationship Address: Address: [address] [place] [address] [place] Care Team Related Persons Name: RIGOBERTO PRIETO Address: home [address] [place], [place] [phone] Name: PAUL PRIETO Address: home [address] [facility] [id number]
--- OUTSIDE RECORDS SUMMARY | 2023-05-24 12:55 | External Medical Summary | Continuity of Care Document ---
Author Name Unknown Organization [facility] [address] [facility] Address [address] [place], [place] [id number] Care Team Providers Care International Specialist Name Role Phone Ed Day Primary Care Physician [phone] [facility]counter [id number] Date(s): 04/15/23 - 04/15/23 [facility] [address], [address] [place] [address] [phone] Discharge Disposition: Home or Self Care Attending Physician: SATHYA Tuttle Lynn Referring Physician: SATHYA Tuttle Lynn Allergies, Adverse Reactions, Alerts Substance Reaction Severity [...] PO, Daily Start Date: 10/31/22 Status: Ordered Combivent Respimat 20 mcg-100 mcg/inh inhalation aerosol Start: 04/15/23 14:37:00 EDT, 1 puff, inhaled, qid, PRN: wheezing Start Date: 04/15/23 Status: Ordered ICaps AREDS 2 Start: 10/31/22 [...] PO, tid Start Date: 11/18/12 Status: Ordered Senokot S 50 mg-8.6 mg oral tablet Start: 04/15/23 14:38:00 EDT, 1 tab, PO, bid, PRN: constipation Start Date: 04/15/23 Status: Ordered traMADol 50 mg oral tablet Start: 10/21/16 14:49:00 EDT, 2 tab, PO, q8h Start Date: 10/21/16 Status: Ordered Trelegy Ellipta 100 mcg-62.5 mcg-25 mcg/inh inhalation powder Start: 04/15/23 14:39:00 EDT, 1 puff, inhaled, Daily Start Date: 04/15/23 Status: Ordered Tylenol 325 mg oral tablet [...] bypass graft 12/17/22 Completed LLE angio w water vessel captain SFA 05/15/15 Compl eted left CEA 04/10/15 Completed CXR - Chest X-ray 1 03/29/15 Compl eted aortogram & LLE arteriogram with MANAGER FUND ext iliac & common femoral 04/05/14 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 Revision 08/23/13 Completed RLE BKA 06/18/13 Completed Femoral-popliteal artery bypass graft 2 12/11/12 Completed Single leg arteriogram 3 11/24/12 Completed bladder repair Completed Cholecystectomy planned C ompleted 1No acute cardiopulhemmonary findings, Stable moderate elevation of right hemidiaphragm 2Hybrid Right 3Right Results Radiology Reports * Exam Date Time Procedure Performing Provider Status 04/15/23 1:37 PM VL Lower Ext Arterial Duplex Limited Cohen Modesta oliver; Final Notes: (VL Lower Ext Arterial Duplex Limited) Reason For Exam: fem pop in situ VL Lower Ext Arterial Duplex Limited [facility] FINAL REPORT Name: GARRETT PRIETO : 1940 Visit: [id number] Date: 15 Apr 2023 TYPE OF TEST: Extremity Arterial Duplex REASON FOR TEST Left fem-pop bpg. INTERPRETATION/FINDINGS Arterial duplex imaging performed of the LEFT lower extremity: 1. No hemodynamically significant stenosis identified in the inflow distal external iliac or common femoral arteries. 2. Patent common femoral artery- popliteal (below knee) artery in-situ bypass graft with no evidence of stenosis at the proximal anastomosis, throughout the graft or at the distal anastomosis. 3. Patent visualized portions of the posterior tibial, peroneal and anterior tibial outflow arteries. Unable to visualize the proximal posterior tibial and peroneal arteries and tibioperoneal trunk due to significant edema. 4. The left ankle/brachial index is 0.81 (mildly reduced). 5. Unable to obtain right ankle/brachial index due to right leg amputation (below the knee). Since the previous study preformed 05/10/2020, there has been a left ON SITE WASTEWATER SYSTEMS TECHNICIAN-Pop A bypass graft placed. The left SETH has improved from 0.55 to 0.81. IMPRESSION/COMMENTS I have personally reviewed the data relevant to the interpretation of this study. TECHNOLOGIST: Modesta Starks RDCS, RVT PHYSICIAN: Elliot Padilla M.D. Signed: 04/15/2023 02:05 PM Final Dictated by:MD Padilla Eugene J Dictated DT/TM:04/15/2023 2:05 Signed by:MD Padilla Eugene J Signed (Electronic Signature):04/15/2023 2:05 p Transcribed by:EJS Social History Social History Type Response Tobacco Current every day sm oker, Cigarettes 1 Smoking Status Current every day li ght smoker Sex Female 11.5 ppd Patient Care team information Care Team Personnel Name: SATHYA Tuttle Lynn Position: Physician Layout Designer Exempt - Vasc Surg Member Role: Lifetime Relationship Address: Address: [address] [place] [address] Name: MD Day Dennis A Position: Referring DIRECT Member Role: Primary Care Provider Address: Address: [address] [place] [id number] [place] Name: MD Padilla Eugene J Position: Physician - Vascular Surg Member Role: Lifetime Relationship Address: Address: [address] [place] [address] Care Team Related Persons Name: RIGOBERTO PRIETO Address: home [address] [place], [place] [id number] Name: PAUL PRIETO Address: home [address] [facility] [id number]
--- OUTSIDE RECORDS SUMMARY | 2023-05-24 12:56 | External Medical Summary ---
Author Name UNSPECIFIED Address Unknown Organization [facility] History of Encounters Reason for Assessment: Recertification ( follow-up) reassessment Functional Assessment Frequency Of Pain Interferin g With Patient's Activity Or Movement: Daily, but not constantly When Dyspneic: With moderate exerti on (e.g., while dressing, using commode or bedpan, walking distances less than 20 feet) Urinary Incontinence or Urin silvia Catheter Present: Patient is incontinent Bowel Incontinence Frequency: Very rarel y or never has bowel incontinence Current Ability: Bathing: able to partic ipate in bathing self in shower or tub, but requires presence of another person throughout the bath for assistance or supervision. Current Ability: Ambulation: Chairfast, unable to ambulate but is able to wheel self independently. 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
--- OUTSIDE RECORDS SUMMARY | 2023-05-24 12:56 | External Medical Summary ---
Author Name UNSPECIFIED Address Unknown Organization [facility] History of Encounters Reason for Assessment: Start of care - f urther visits planned Inpatient discharge facility: Past [facility]: Discharged From Short Stay Acute Hospital Inpatient discharge facility: Past 14 Da ys: Discharged From Inpatient Rehab Facility Most Recent Inpatient Discharge Date: Functional Assessment Patient Living Situation: Patient Lives Alone: Occasional/Short-term assistance Frequency Of Pain Interferin g With Patient's Activity Or Movement: Daily, but not constantly When Dyspneic: With moderate exerti on (e.g., while dressing, using commode or bedpan, walking distances less than 20 feet) Urinary Incontinence or Urin silvia Catheter Present: Patient is incontinent Bowel Incontinence Frequency: Very rarel y or never has bowel incontinence Cognitive and Behavioral and Psychiatric Symptoms: None Current Ability: Bathing: able to partic ipate in bathing self in shower or tub, but requires presence of another person throughout the bath for assistance or supervision. Current Ability: Ambulation: Chairfast, unable to ambulate but is able to wheel self independently. Has Patient Had A Multi-fact or Fall Risk Assessment? No multi-factor falls risk assessment co nducted Current: Management Of Oral Medications: Able to take medication(s) at the [facility] t times if: (a) individual dosages are prepared in advance by another person; OR (b) another person develops a drug diary or chart Procedures Therapies Received at Home: None Problems Primary Home Care Diagnosis ICD Code: L0 3.116, Cellulitis of left lower limb Home Care Diagnosis 1: ICD Code: E11.621 , Type 2 diabetes mellitus with foot ulcer Home Care Diagnosis 1: Severity Ratin Home Care Diagnosis 2: ICD Code: L97.401 , Non-prs chr ulcer of unsp heel and midft lmt to brkdwn skin Home Care Diagnosis 2: Severity Ratin Home Care Diagnosis 3: ICD Code: L97.521 , 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
--- OUTSIDE RECORDS SUMMARY | 2023-05-24 12:56 | External Medical Summary ---
Author Name UNSPECIFIED Address Unknown Organization [facility] History of Encounters Reason for Assessment: Transferred to an inpatient facility - patient not discharged from agency Inpatient Facility where the patient been admitted: Hospital
--- OUTSIDE RECORDS SUMMARY | 2023-05-24 12:56 | External Medical Summary ---
Author Name UNSPECIFIED Address Unknown Organization [facility] History of Encounters Reason for Assessment: Start of care - f urther visits planned Inpatient discharge facility: Past 14 Da ys: Not Discharged from Inpatient Facility Functional Assessment Patient Living Situation: Patient Lives Alone: Occasional/Short-term assistance Frequency Of Pain Interferin g With Patient's Activity Or Movement: Daily, but not constantly When Dyspneic: With minimal exertio n (e.g., while eating, talking, or performing other ADLs) or with agitation Urinary Incontinence or Urin silvia Catheter Present: [...] Medications: Able to take medication(s) at the the [facility] t times if: (a) individual dosages are prepared in advance by another person; OR (b) another person develops a drug diary or chart Procedures Therapies Received at Home: None Problems Primary Home Care Diagnosis ICD Code: E1 1.51, Type 2 diabetes w diabetic peripheral angiopath w/o gangrene Home Care Diagnosis 1: ICD Code: I73.9, Peripheral vascular disease, unspecified Home Care Diagnosis 1: Severity Ratin Home Care Diagnosis 2: ICD Code: L97.921 , Non-prs chr ulc unsp prt of l low leg limited to brkdwn skin Home Care Diagnosis 2: Severity Ratin Home Care Diagnosis 3: ICD Code: J44.9, Chronic obstructive pulmonary disease, unspecified Home Care Diagnosis 3: Severity Ratin Home Care Diagnosis 4: ICD Code: E11.40, Type 2 diabetes mellitus with diabetic neuropathy, unsp Home Care Diagnosis 4: Severity Ratin Home Care Diagnosis 5: ICD Code: G62.9, Polyneuropathy, unspecified Home Care Diagnosis 5: Severity Ratin
--- OUTSIDE RECORDS SUMMARY | 2023-05-24 12:56 | External Medical Summary ---
Author Name UNSPECIFIED Address Unknown Organization [facility] History of Encounters Reason for Assessment: Resumption of car e (after inpatient stay) Inpatient discharge facility: Past 14 Da ys: Discharged From Short Stay Acute Hospital Most Recent Inpatient Discharge Date: Functional Assessment [...] Medications: Able to take medication(s) at the [facility] t times if given reminders by another person at the appropriate times Procedures Therapies Received at Home: None Problems Primary Home Care Diagnosis ICD Code: L0 3.116, Cellulitis of left lower limb Home Care Diagnosis 1: ICD Code: E11.621 , Type 2 diabetes mellitus with foot ulcer Home Care Diagnosis 1: Severity Ratin Home Care Diagnosis 2: ICD Code: L97.521 , 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
--- OUTSIDE RECORDS SUMMARY | 2023-05-24 12:56 | External Medical Summary ---
Author Name UNSPECIFIED Address Unknown Organization [facility] History of Encounters Reason for Assessment: Transferred to an inpatient facility - patient not discharged from agency Inpatient Facility where the patient been admitted: Hospital
--- OUTSIDE RECORDS SUMMARY | 2023-05-24 12:56 | External Medical Summary ---
Author Name UNSPECIFIED Address Unknown Organization [facility] History of Encounters Reason for [...] Medications: Able to take medication(s) at the [facility] t times if: (a) individual dosages are [...] Ratin Home Care Diagnosis 2: ICD Code: L97.421 , Non-prs chr ulcer of left heel and midft lmt to brkdwn skin [...] Ratin Home Care Diagnosis 5: ICD Code: I70.242 , Athscl [place] arteries of left leg w ulceration of calf Home Care Diagnosis 5: Severity Ratin
--- OUTSIDE RECORDS SUMMARY | 2023-05-24 12:56 | External Medical Summary | Continuity of Care Document ---
Author Name Unknown Organization [place] [address] [facility] Address [address] [place], [place] [id number] Care Team Providers Care Marketing Information Coordinator Name Role Phone Ed Day Primary Care Physician [phone] [id number] Date(s): 10/31/22 - 10/31/[address], [address] [place] [address] [phone] Encounter Diagnosis Peripheral arterial occlusive disease(Discharge Diagnosis) - 10/31/22 Carotid artery stenosis(Discharge Diagnosis) - 10/31/22 Discharge Disposition: Home or Self Care Attending Physician: MD Randy, Elliot Villagomez Referring Physician: MD Jha Christopher M Allergies, Adverse Reactions, Alerts Substance Reaction Severity [...] Start Date: 10/26/18 Status: Ordered Mental Status 10/31/22 Barriers to Learning one year None evide nt Mandatory Health Literacy Documentation Yes Health Literacy Communication Barriers N ever Primary Language Portuguese Problem List Condition Confirmation Course Effective Dates [...] Effective Dates Health Status Clinical Service Informant Carotid artery stenosis Discharge Diagnosis 10/31/22 Non-Specified Peripheral arterial occlusive disease Discharge Diagnosis 10/31/22 Non-Specified Procedures Procedure Date Related Diagnosis Body Site Status LLE angio w barge captain SFA 05/15/15 Compl eted left CEA 04/10/15 Completed CXR - Chest X-ray 1 03/29/15 Compl eted aortogram & LLE arteriogram with CENTRALIZED TRAFFIC CONTROL OPERATOR ext iliac & common femoral 04/05/14 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 Revision 08/23/13 Completed RLE BKA 06/18/13 Completed Femoral-popliteal artery bypass graft 2 12/11/12 Completed Single leg arteriogram 3 11/24/12 Completed bladder repair Completed Cholecystectomy planned C ompleted 1No acute cardiopulhemmonary findings, Stable moderate elevation of right hemidiaphragm 2Hybrid Right 3Right Vital Signs Most recent to oldest [Reference Range]: 1 2 Heart Rate 66 bpm (10/31/22 9:36 AM) Blood Pressure 122/62mmHg (10/31/22 9:38 AM) 122/54mmHg (10/31/22 9:36 AM) Cuff Pulse Pressure 60 mmHg (10/31/22 9:38 AM) 68 mmHg (10/31/22 9:36 AM) BP Location # 1 Right Arm (10/31/22 9:38 AM) Left Arm (10/31/22 9:36 AM) Social History Social History Type Response Tobacco Current every day sm oker, Cigarettes 1 Smoking Status Current every day he yohana smoker Sex Female 11.5 ppd Patient Care team information Personnel Name: MD Barb, Ed Hilario Address: Address: [address] [place] [address] [place] [address] [place]
--- OUTSIDE RECORDS SUMMARY | 2023-05-24 12:56 | External Medical Summary ---
Author Name UNSPECIFIED Address Unknown Organization [facility] History of Encounters Reason for Assessment: Transferred to an inpatient facility - patient not discharged from agency Inpatient Facility where the patient been admitted: Hospital
--- OUTSIDE RECORDS SUMMARY | 2023-05-24 12:56 | External Medical Summary ---
Author Name UNSPECIFIED Address Unknown Organization [facility] History of Encounters Reason for Assessment: Discharge from [facility] Inpatient Facility where the patient been admitted: No inpatient facility admission Discharge Disposition: Patient remained in the community (without formal assistive services) Functional Assessment Frequency Of Pain Interferin g With Patient's Activity Or Movement: Patient has pain that does not interfere with activity or movement When Dyspneic: With moderate exerti on (e.g., while dressing, using commode or bedpan, walking distances less than 20 feet) Bowel Incontinence Frequency: Very rarel y or never has bowel incontinence Cognitive and Behavioral and Psychiatric Symptoms: None Current Ability: Bathing: With the use o f devices, is able to bathe self in shower or tub independently, including getting in and out of the tub/shower. Current: Management Of Oral Medications: Able to independently take the correct oral medication(s) and proper dosage(s) at the correct time
--- OUTSIDE RECORDS SUMMARY | 2023-05-24 12:56 | External Medical Summary ---
Author Name UNSPECIFIED Address Unknown Organization [facility] History of Encounters Reason for Assessment: [...] for assistance or supervision. Current Ability: Ambulation: Able to wal k only with the supervision or assistance of another person at all times. Has Patient Had A Multi-fact or Fall Risk Assessment? Yes, and it indicates a risk for falls Current: Management Of Oral Medications: Able to take medication(s) at the [facility] t times if: (a) individual dosages are prepared in advance by another person; OR (b) another person develops a drug diary or chart Procedures Therapies Received at Home: None Problems Primary Home Care Diagnosis ICD Code: S1 6.9XXD, Unsp injury of muscle, fascia and tendon at neck level, subs Home Care Diagnosis 1: ICD Code: M48.00, Spinal stenosis, site unspecified Home Care Diagnosis 1: Severity Ratin Home Care Diagnosis 2: ICD Code: E11.40, Type 2 diabetes mellitus with diabetic neuropathy, unsp Home Care Diagnosis 2: Severity Ratin Home Care Diagnosis 3: ICD Code: I77.9, Disorder of arteries and arterioles, unspecified Home Care Diagnosis 3: Severity Ratin Home Care Diagnosis 4: ICD Code: J44.9, Chronic obstructive pulmonary disease, unspecified Home Care Diagnosis 4: Severity Ratin Home Care Diagnosis 5: ICD Code: F32.9, Major depressive disorder, single episode, unspecified Home Care Diagnosis 5: Severity Ratin
--- OUTSIDE RECORDS SUMMARY | 2023-05-24 12:56 | External Medical Summary ---
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
== END 2023-05-21 16:19 | disposition expired | DRG 871 ==
LOC: ED 00:30 → EDINP 04:33 → SUATTDRO 04:33 → 2S 05:44 → 3N 05-19 12:33
DX: Z79.899 Other long term (current) drug therapy; G93.41 Metabolic encephalopathy; N93.9 Abnormal uterine and vaginal bleeding, unspecified; Z66 Do not resuscitate; J18.9 Pneumonia, unspecified organism; G89.29 Other chronic pain; Z88.8 Allergy status to other drugs, medicaments and biological substances; N39.0 Urinary tract infection, site not specified; Z79.51 Long term (current) use of inhaled steroids; D62 Acute posthemorrhagic anemia; Z87.891 Personal history of nicotine dependence; Z89.511 Acquired absence of right leg below knee; Z51.5 Encounter for palliative care; C34.90 Malignant neoplasm of unspecified part of unspecified bronchus or lung; E11.9 Type 2 diabetes mellitus without complications; Z88.3 Allergy status to other anti-infective agents; J96.21 Acute and chronic respiratory failure with hypoxia; Z79.2 Long term (current) use of antibiotics; I73.9 Peripheral vascular disease, unspecified; Z79.1 Long term (current) use of non-steroidal anti-inflammatories (NSAID); R59.1 Generalized enlarged lymph nodes; G89.3 Neoplasm related pain (acute) (chronic); J44.9 Chronic obstructive pulmonary disease, unspecified; A41.9 Sepsis, unspecified organism; Z79.02 Long term (current) use of antithrombotics/antiplatelets; I10 Essential (primary) hypertension; Z79.82 Long term (current) use of aspirin; R65.20 Severe sepsis without septic shock